=== PATIENT | male | born 2000 | race Caucasian/White ===

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

== ENCOUNTER 2022-01-22 00:50 | Outpatient (RCR) | payer OTHER, SELFPAY ==
[2022-01-22 07:54] LABS: FREE T4 0.73 ng/dL (0.78-1.34); TSH 1.47 uIU/mL (0.52-4.13)
[2022-01-22 17:26] LABS: T3, Total 118 ng/dL (97-169)
[2022-01-28 12:25] LABS: Testosterone, Free 17.1 ng/dL (5.36-21.2); Testosterone, Total 388 ng/dL (240-950)
== END 2022-02-07 23:59 | disposition home or self-care (01) ==
LOC: INF 00:50
PROVIDERS: PCP Pediatrics; Visit Provider Internal Medicine Endocrinology, Diabetes & Metabolism
DX: E03.9 Hypothyroidism, unspecified (principal); E29.1 Testicular hypofunction
CPT/HCPCS: 36415; 84402; 84403; 84439; 84443; 84480

== ENCOUNTER 2022-05-10 08:22 | Outpatient (RCR) | payer OTHER, SELFPAY ==
--- OUTSIDE RECORDS SUMMARY | 2022-05-10 08:27 | XMS_ITS | Encounter Summary ---
:2000 Author Organization [facility] Address [address] [place] [address] Care Team Providers Name Role Phone Sully Baldwin RIDE MECHANIC Unavailable Bernard Newman MD Primary Care Provider Shellie Garza RN Unavailable Unavailable Reason for Visit Reason Onset Date Comments Pre-visit Orders 03/14/2021 Encounter Details Date Type Department Care Team Description 03/14/2021 Orders Only [facility] Shellie Garza R N AML ([facility] [address] [place] [address] leukemia) in Hematology & Oncology [place], [place] [address] remission ([facility]) - Main [place] (Primary Dx) [address] [place] [address] Social History Tobacco Use Types Packs/Day Years Used Date Never Smoker Smokeless Tobacco: Never Used Sex Assigned at Date Recorded Not on file COVID-19 Exposure Response Date Recorded In the last month, have you been in contact with someone Yes 03/13/2021 11:46 EDT who was confirmed or suspected to have Coronavirus / COVID-19? documented as of this encounter Functional Status Functional Status Response Date of Assessment Because of a physical, mental, or emotional condition, No 01/14/2017 does this person have difficulty doing errands alone such as visiting a doctor's office or shopping? Cognitive Status Response Date of Assessment Because of a physical, mental, or emotional condition, Yes 01/14/2017 does this person have serious difficulty concentrating, remembering, or making decisions? 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
--- OUTSIDE RECORDS SUMMARY | 2022-05-10 08:27 | XMS_ITS | Encounter Summary ---
:2000 Author Organization [facility] Address [address] [place] [address] Care Team Providers Name Role Phone Sully Baldwin INTERNATIONAL TRADE SPECIALIST Unavailable Bernard Newman MD Primary Care Provider [phone] Shellie Garza RN Unavailable Unavailable Encounter Details Date Type Department Care Team Description 02/06/2021 Lab Requisition [facility] Outr Resulting Lab, Pathology & Laboratory Provider [facility] [address] [place], [place] [id number] Social History Tobacco Use Types Packs/Day Years Used Date Never Smoker Smokeless Tobacco: Never Used Sex Assigned at Date Recorded Not on file documented as of this encounter Functional Status [...] Office Visit Cardiology Bg Kelsey MD 111 [facility] Level 1 [place], [place] [address] (Wo rk) documented as of this encounter Procedures Procedure Name Priority Date/Time Associated Diagnosis Comme nts COVID-19 TEST [facility] Today 02/06/2021 9:01 EDT LAB PCR COVID-19 TESTING Routine 02/06/2021 9:01 EDT Resu lts for this procedure are i n the results section. documented in this encounter Results COVID-19 TEST [facility] PCR (02/06/2021 9:01 EDT) Specimen Swab - Entire nasopharynx (body structur e) Performing Organization Address City/[facility] Phon e Number [facility] [address] [place] [address] SERVICES COVID-19 TESTING (02/06/2021 9:01 EDT) COVID-19 rt-PCR Negative Negative [facility] Result Comment: CENTER LABORATORY This test has not been FDA c leared or approved. This test has been authorized by FDA under an EUA for use by authorized laboratories. This test has been authorized only for detection of nucleic acid fro SERVICES m 2019-nCoV, not for any oth er viruses or pathogens. This test is only authorized for the duration of the declaration that circumstances exist justifying the authorization of emergency use of in vitro d iagnostic tests for detectio n and/or diagnosis of 2019-nCoV under section 564(b)(1) of Act, 21 U.S.C ?? 360bbb-3(b) (1), unless the authorization is terminated or revoked sooner. Negative results do not prec lude 2019-nCoV infection and should not be used as the sole basis for treatment or other patient management decisions. Negative results must be combined with clinical observa tions, patient history, and epidemiological informatio n. Performed on the FunPuntosher Fusion instrument Performing Lab [place] [facility] Lab [facility] SERVICES Specimen Swab Performing Organization Address City/[facility] Code Phon e Number [facility] [address] [place] [address] SERVICES documented in this encounter Visit Diagnoses Not on filedocumented in this encounter Care Teams Adolescent Specialist Relationship Specialty Start Date End Date Bernard Newman MD PCP - General 10/21/[address] [place] [address] Sully Baldwin NP Nurse Practitioner 09/05/10 [address] [place] [address] Shellie Garza, RN Registered Nurse 03/13/21 [address] [place] [address] documented as of this encounter
--- OUTSIDE RECORDS SUMMARY | 2022-05-10 08:27 | XMS_ITS | Encounter Summary ---
:2000 Author Organization [facility] Address [address] [place] [address] Care Team Providers Name Role Phone Sully Baldwin SUPERVISOR PAIRING AND INSPECTING Unavailable Bernard Newman MD Primary Care Provider [phone] Shellie Garza RN Unavailable Unavailable Reason for Referral Cardiology (Routine/Next Available) - New Request Specialty Diagnoses / Procedures Referred By Contact Refer red To Contact Diagnoses Cardiomyopathy, unspecified type ([facility]) ([facility]) Bg Kelsey MD [facility] Procedures TRANSTHORACIC ECHO (TTE) COMPLETE [place] ECHO HEART XTHORACIC,COMPLETE W DOPPLER [address] [phone] Referral ID Status Reason Start Date Expiration Date Visits V isits Requested Authorized [id number] New Request 12/05/2021 1 1 Reason for Visit Reason Comments Cardiomyopathy 6 month follow up, Chemother apy induced cardiomyopathy Encounter Details Date Type Department Care Team Description 12/05/2021 Office Visit [facility] Medical [place] Bg Kelsey, Jyoti rdiomyopathy, Cardiology - Yuli PAINTING unspecified type [address] [place] ([facility] ([facility]) So [facility] (Primary Dx) [id number] [place] [address], [address] [address] (Wo rk) Social History Tobacco Use Types Packs/Day Years Used Date Never Smoker Smokeless Tobacco: Never Used Alcohol Use Standard Drinks/Week Comments Yes 0 (1 standard drink = 0.6 oz pure alcoho l) socially Alcohol Habits Answer Date Recorded How often do you have a drink containing alcohol? Not asked How many drinks containing alcohol do you have on a typical Not asked day when you are drinking? How often do you have six or more drinks on one occasion? No t asked Comment: socially 06/06/2021 Sex Assigned at Date Recorded Not on file documented as of this encounter Last Filed Vital Signs Vital Sign Reading Time Taken Comments Blood Pressure 106/64 12/05/2021 1004 EST Pulse 68 12/05/2021 1004 EST Temperature - - Respiratory Rate - - Oxygen Saturation 99% 12/05/2021 1004 EST Inhaled Oxygen Concentration - - Weight 87.9 kg (193 lb 12.8 oz) 12/05/2021 1004 EST Height - - Body Mass Index 25.57 12/05/2021 0951 EST documented in this encounter Functional Status Functional Status Response Date of Assessment Because of a physical, mental, or emotional condition, No 01/14/2017 does this person have difficulty doing errands alone such as visiting a doctor's office or shopping? Cognitive Status Response Date of Assessment Because of a physical, mental, or emotional condition, No 05/16/2021 does this person have serious difficulty concentrating, remembering, or making decisions? documented as of this encounter Progress Notes Bg Kelsey MD - 12/05/2021 1020 EST Problem list 1. 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 Patient treated with COG protocol AAML 0531 which included randomization to therapy with him gemtuzumab. B. Total anthracycline dose administered 492 mg/m?? (daunorubicin and mitoxantrone). COG guidelines recommend annual echocardiograms. C. 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 male with a history of AML and anthracycline exposure. At this point time Jaswinder is cardiac function remains in the normal range. His low normal values may reflect an athletic heart under resting conditions. At this point time continued observation with periodic echocardi ograms is reasonable. I have made arrangements to see him in 1 years time with an echocardiogram. I have asked him to contact me if he has increased shortness of breath or palpitations. There are no diagnoses linked to this encounter. No follow-ups on file. Bg Kelsey MD Subjective Jaswinder Ross is a 21 y.o. male with a history of acute lymphocytic leukemia with anthracycline exposure. Overall has been doing remarkably well. 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 He denies syncope or presyncope. He denies palpitations or chest discomfort. He does not feel limited in his physical activities. ROS See subjective for pertinent positives and negatives Problem List and History were reviewed in the EMR Outpatient Medications Marked as Taking for the 12/05/21 encounter (Office Visit) with Bg Kelsey MD: ??? buPROPion (WELLBUTRIN XL) 150 mg XL tablet, Take 150 mg by mouth. ??? ibuprofen (MOTRIN) 200 mg tablet, Take 200 mg by mouth every 6 hours. ??? Multivitamins with Minerals tablet tablet, Take 1 Tablet by mouth daily. ??? testosterone (ANDROGEL) 20.25 mg/1.25 gram (1.62 %) transdermal gel pump, Objective BP 106/64 (BP Cuff Location: Left arm, BP Patient Position: Sitting, BP Cuff Sizes: Adult, large) Pulse 68 Wt 87.9 kg (193 lb 12.8 oz) SpO2 99% BMI 25.57 kg/m?? Physical Exam Not performed Diagnostics: Echocardiogram was performed today demonstrate left ventricular ejection fraction of approximately 55%. RV function was normal. Global longitudinal strain was low normal at -17%. Diastolicfunction was normal. I spent a total of 25 minutes on the date of this encounter meeting with the patient and reviewing documentation/coordinating care as described in the above note. documented in this encounter Plan of Treatment Upcoming Encounters Date Type Specialty Care Team Description 12/18/2022 Ancillary Procedure Cardiology 12/18/2022 Office Visit Cardiology Bg Kelsey MD 111 [facility], [facility], Level [address] [place], [place] [address] (Wo rk) documented as of this encounter Visit Diagnoses Diagnosis Cardiomyopathy, unspecified type (HCC-CM S) (HCC) - Primary documented in this encounter Discontinued Medications Medication Sig Discontinue Reason Start Date End Date methylPREDNISolone follow package Therapy completed 06/06/2021 (MEDROL, TEA,) 4 mg tablet directions sertraline (ZOLOFT) 20 Take 50 mg by Therapy completed 12/05/2021 mg/mL concentrated mouth daily. solutionIndications: anxiety with depression cyclobenzaprine (FLEXERIL) Take 1 Tablet by Therapy completed 06/0612/05/2021 5 mg tablet mouth 3 times daily as needed for Muscle Spasms. documented as of this encounter Orders Echocardiography Count Last Ordered Date First Ordered Date TRANSTHORACIC ECHO (TTE) COMPLETE 1 12/05/2021 documented in this encounter Care Teams Asset Protection Assistant Relationship Specialty Start Date End Date Bernard Newman MD PCP - General 10/21/[address] [place] [address] Sully Baldwin NP Nurse Practitioner 09/05/[address] [place] [phone] Shellie Garza, JUAQUIN Registered Nurse 03/13/[address] [place] [address] documented as of this encounter
--- OUTSIDE RECORDS SUMMARY | 2022-05-10 08:27 | XMS_ITS | Encounter Summary ---
:2002 Author Organization [facility] Address [address] [place] [address] Care Team Providers Name Role Phone Sully Baldwin RAILCAR FOREMAN Unavailable Bernard Newman MD Primary Care Provider [phone] Shellie Garza RN Unavailable Unavailable Reason for Visit Cardiology (Routine) - Authorized Specialty Diagnoses / Procedures Referred By Contact Refer red To Contact Diagnoses Chemotherapy induced cardiomyopathy (HCC-CMS) ([facility]) Bg Kelsey MD Procedures TRANSTHORACIC ECHO (TTE) COMPLETE [place] ECHO HEART XTHORACIC,COMPLETE W DOPPLER 111 [facility] 1 [place] [address] Referral ID Status Reason Start Date Expiration Date Visits V isits Requested Authorized [id number] Authorized 05/16/2021 1 1 Encounter Details Date Type Department Care Team Description 12/05/2021 Ancillary Procedure [facility] Ch emotherapy induced Cardiology - Yuli cardiomyopathy (HCC-CMS) [address] ([facility]) [place] [address] Social History Tobacco Use Types Packs/Day Years [...] Sign Reading Time Taken Comments Blood Pressure 136/61 12/05/2021 0951 EST Pulse - - Temperature - - Respiratory Rate - - Oxygen Saturation - - Inhaled Oxygen Concentration - - Weight 90.7 kg (200 lb) 12/05/2021 0951 EST Height 185.4 cm (6' 1) 12/05/2021 0951 EST Body Mass Index 26.39 12/05/2021 0951 EST documented in this encounter [...] Office Visit Cardiology Bg Kelsey MD 111 [facility], Level [address] [place], [place] [address] (Wo rk) documented as of this encounter Procedures Procedure Name Priority Date/Time Associated Diagnosis Comme [facility] TRANSTHORACIC ECHO Routine 12/05/2021 9:46 Chemotherapy induce d Results for this (TTE) COMPLETE EST cardiomyopathy procedure a re in ([facility]) ([facility]) the results section. documented in this encounter Results TRANSTHORACIC ECHO (TTE) COMPLETE W/DOPPLER W/CF NO CONTRAST (12/05/2021 9:46 EST) Pathologist Sig nature LA Atrial Length A2C 5.0 cm [facility] LA Atrial Area A4C 15.7 cm2 [facility] LA ID/bsa, A-P 1.6 cm/m2 [facility] LV ID, ED, PLAX 5.7 3.5 - 6.0 cm [facility] LVIDD BY MMODE 5.7 cm [facility] LV ID, ES, PLAX 4.2 2.1 - 4.0 cm [facility] LA ID, A-P, ES 3.4 cm [facility] LV PW thickness, ED, PLAX 1.0 0.6 - 1.1 cm [facility] Aortic root ID 2.6 cm [facility] LV ejection fraction, 1-p A4C 50 % [facility] O LVOT mean gradient, S 4 mmHg [facility] AV LVOT peak gradient 8 mmHg [facility] LV e', lateral 0.17 m/s [facility] Mitral deceleration time 141 ms [facility] LV IVRT, DP 65 msec [facility] LVOT area 3.1 cm2 [facility] LVOT peak velocity, S 1.4 m/s [facility] LVOT VTI, S 30.1 cm [facility] Stroke volume (SV), LVOT DP 95 ml [facility] Mitral peak gradient, D 4 mmHg [facility] LVOT mean velocity, S 1.0 m/s [facility] Mitral E-wave peak velocity 1.0 m/s [facility] Mitral A-wave peak velocity 0.4 m/s [facility] LV Systolic Volume Index 36.0 mL/m2 [facility] LV Diastolic Volume Index 76.0 mL/m2 [facility] LA Atrial Length A4C 5.2 cm [facility] LVOT ID, S 2.0 cm [facility] EF 52 % [facility] LA volume, ES, BP 39.0 ml [facility] LA volume/bsa, ES, A4C 17.0 ml/m2 [facility] LA volumes, ES, A4C 36.0 ml [facility] LA volume/bsa, ES, BP 18.0 ml/m2 [facility] LV Systolic Volume 78 mL [facility] LV Diastolic Volume 163 mL [facility] Stroke index (SV/bsa) LVOT DP 44.0 ml/m2 [facility] O Interventricular Septum to 1 [facility] Posterior Wall Thickness Ratio IVS thickness, ED, PLAX 0.9 cm [facility] LV e', medial 0.12 m/s [facility] LV e', average 0.15 m/s [facility] Pulmonic valve mean velocity, S 1 cm/s [facility] Ascending aorta ID, a-p 2.6 cm [facility] LA Atrial Area A2C 15.7 cm2 [facility] LA/aortic root ratio 1.31 [facility] LV end diastolic volume 1-p A2C 159 ml [facility] LV ejection fraction, 1-p A2C 54 % [facility] O LV E/e', lateral 6.0 [facility] LV E/e', medial 0.1 [facility] LV E/e', average 3 [facility] LV end-diastolic volume, 1-p 164 ml [facility] A4C Specimen Narrative [facility] - 12/05/2021 9:56 EST ?Left??Ventricle: Left ventricular systolic function was low normal with an ejection fraction of 50-55%. The jaime mated left ventricular ejection fraction by biplane Dave's method was 52 %. Global longitudinal strain was at the lower limits of ??normal (-17 .0%). ?Right??Ventricle: Right ventricular systolic function was normal. Performing Organization Address City/State/ZIP Code Phon e Number [facility] documented in this encounter Visit Diagnoses Diagnosis Chemotherapy induced cardiomyopathy (HCC -CMS) (HCC) Secondary cardiomyopathy, unspecified documented in this encounter Care Teams Alley Worker Relationship Specialty Start Date End Date Bernard Newman MD PCP - General 10/21/[address] [place] [address] [place] [address] Sully Baldwin NP Nurse Practitioner 09/05/[address] [place] [phone] Shellie Garza, JUAQUIN Registered Nurse 03/13/21 [address] [place] [address] documented as of this encounter
--- OUTSIDE RECORDS SUMMARY | 2022-05-10 08:27 | XMS_ITS | Encounter Summary ---
:2000 Author Organization [facility] Address [address] [place] [address] Care Team Providers Name Role Phone Sully Baldwin MOLDING PROCESS TECHNICIAN Unavailable Bernard Newman MD Primary Care Provider [phone] Shellie Garza RN Unavailable Unavailable Reason for Visit Reason Comments Back Pain Pt arrives ambulatory to [facility] with complaints of lower back pain, hx of back pain. 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 Pt reports pain worse with sitting. Denies loss of urin e or bowels, reports pressure to R thigh. 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 Encounter Details Date Type Department Care Team Description 06/06/[address] [facility] Eduardo Gonzalez, Randall kirit right-sided low Emergency Department back pain with - [facility] [address] [facility] right-sided sciatica [address] [facility] (Primary Dx) [place] [address] [address], [place] [address] (Wo rk) Social History Tobacco Use Types [...] month, have you been in contact with No / Unsure 06/06/2021 17:48 EDT someone who was confirmed or suspected to have Coronavirus / COVID-19? documented as of this encounter Last Filed Vital Signs Vital Sign Reading Time Taken Comments Blood Pressure 153/85 06/06/20212011 EDT Pulse 85 06/06/20212011 EDT Temperature 37 ??C (98.6 ??F) 06/06/2021 1749 EDT Respiratory Rate 18 06/06/20212011 EDT Oxygen Saturation 98% 06/06/20212011 EDT Inhaled Oxygen Concentration - - Weight 90.7 kg (200 lb) 06/06/2021 174 EDT Height 185.4 cm (6' 1) 06/06/2021 1749 EDT Body Mass Index 26.39 06/06/2021 1749 EDT documented in this encounter Functional Status Functional [...] making decisions? documented as of this encounter Discharge Instructions Eduardo Peres MD - 06/06/2021 As we discussed the best way to get better fastest is gentle range of motion exercises and heat. Tryto take the flexaril at bedtime only and continue to use heat, ibuprofen, and tylenol. AttachmentsThe following attachments cannot be sent through Care Everywhere.Low Back Pain: General Info (Sami)documented in this encounter Medications at Time of Discharge Medication Sig Dispensed Refills Start Date End Date buPROPion (WELLBUTRIN XL) Take 150 mg by 0 2020 150 mg XL tablet mouth. ibuprofen (MOTRIN) 200 mg Take 200 mg by 0 tablet mouth every 6 hours. Multivitamins with Minerals Take 1 Tablet by 0 tablet tablet mouth daily. testosterone (ANDROGEL) 0 03/02/2021 20.25 mg/1.25 gram (1.62 %) transdermal gel pump cyclobenzaprine (FLEXERIL) Take 1 Tablet by 15 Tablet 0 12/05/2021 5 mg tablet mouth 3 times daily as needed for Muscle Spasms. methylPREDNISolone (MEDROL, follow package 1 Pack 0 05/1112/05/2021 TEA,) 4 mg tablet directions sertraline (ZOLOFT) 20 Take 50 mg by 0 12/05/2021 mg/mL concentrated mouth daily. solutionIndications: anxiety with depression documented as of this encounter Ordered Prescriptions Prescription Sig Dispensed Refills Start Date End Date methylPREDNISolone (MEDROL, follow package 1 Pack 0 05/1112/05/2021 TEA,) 4 mg tablet directions cyclobenzaprine (FLEXERIL) Take 1 Tablet by 15 Tablet 0 12/05/2021 5 mg tablet mouth 3 times daily as needed for Muscle Spasms. documented in this encounter Discharge Disposition Disposition Code Departure Means Destination Home or Self Intermediate documented in this encounter ED Notes Estela Astudillo RN - 06/06/20212012 EDT Patient discharged home alert, oriented x 4. NAD noted. Discharge instructions and prescriptions reviewed with patient with patient verbalizing understanding of the same. Eduardo Colin MD - 06/06/2021 191 EDT This patient received an evaluation and medical screening exam for emergent medical conditions at the [facility] on 06/06/2021 This note was created and authored by Dr. Jaz Dominguez working under the supervision of Eduardo Gonzalez MD. This documentation is also recorded by Vik Molina acting as Scribe under the direction and presence of Eduardo Gonzalez MD and Jaz Dominguez MD. Eduardo Gonzalez and Jaz Dominguez MD: We personally performed the services recorded by the scribein our presence. We confirm the scribe's documentation has been reviewed by us to accurately and completely record our work, treatment, procedures, and medical decision making. ED Attending???s Supervisory Statement: I, Eduardo Gonzalez MD, performed a history and exam of this patient and discussed the case with the resident. I have reviewed and edited this note, and the documentation is consistent with my findings,assessment and plan. I fully participated in the medical decision making. The patient is a 21 y.o. male who presents with back pain. On my evaluation of the patient the patient notes his pain is localized to his right side, but he denies any associated urinary symptoms or pain radiating to his groin. The patient has repordily been applying heat and stretching but his pain continues to worsen. Reviewed the patient's Lumbar spine x-ray results with the patient and his mother. There 5 type lumbar vertebra. Small ribs are identified at the L1 level. The vertebral body heights and disc spaces are maintained. Alignment is maintained. No blastic or lytic lesions identified. No acute findings in the visualized soft tissues are normal. The patient was receptive to being discharged home. Chief Complaint: Chief Complaint Patient presents with ??? Back Pain Pt arrives ambulatory to triage with complaints of lower back pain, hx of back pain. 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 Pt reports pain worse with sitting. Denies loss of urine or bowels, reports pressure to R thigh. 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 History of Present Illness: [facility] Jaswinder Ross is a 21 y.o. 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 Patient reports that he is always had back pain however he recently fell on Friday on his right tailbone. Since then the pain has been constant and he describes it as both pressure, sharp, and stabbing. Patient has tried [id number] pain medications, going to the chiropractor, and heat pads at that much relief. Patient is having difficulty ambulating. 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 Patient heard a pop this morning and experienced excruciating pain and needed assistance getting into the car. Upon coming to the emergency department he heard a another pop and felt some relief withthat. Associated numbness to his right mid quad. Denies fever, shortness of breath, chest pain, nausea, vomiting, diarrhea, saddle anesthesia, urinary or bowel retention or incontinence. Patient reports that he feels like his right leg is little bit weaker however he does not note that it is due to pain. Patient vapes, drinks alcohol and smokes marijuana occasionally. History was provided by: patient, medical record review Review of Systems: ROS A 10-point review of systems was performed. The patient answered negative to all questions with the exceptions of those explicitly detailed as positives in the HPI. Pertinent negatives are also explicitly stated. Other pertinent history in the medical record includes but is not limited to: PMH PSH Past Medical History: Diagnosis Date ??? AML (acute myeloblastic leukemia) ([facility]) 05/13/2008 Treated per [facility] AAML 0531. WBC 49,000, WINDOW FRAMER negative, testicles negative. 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 Completed therapy 10/21/2008. ??? Dry skin dermatitis 11/2010 ??? 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 Other complication of labor and delivery, antepartum condition or complication gestational diabetes Past Surgical History: Procedure Laterality Date ??? CENTRAL VENOUS CATHETER 05/2008 Double lumen broviac catheter removed 12/2008 ??? AL CREATE EARDRUM OPENING,GEN ANESTH Social History Family History Social History Tobacco Use ??? Smoking status: Never Smoker ??? Smokeless tobacco: Never Used Substance Use Topics ??? Alcohol use: Yes Comment: socially Family History Problem Relation Age of Onset ??? *Other(comment) Paternal Grandmother ??? *Other(comment) Maternal Grandmother ??? Cancer Maternal Grandmother Lung Cancer ??? *Other(comment) Father MRSA Medications Allergies No current facility-administered medications for this encounter. Current Outpatient Medications Medication ??? buPROPion (WELLBUTRIN XL) 150 mg XL tablet ??? cyclobenzaprine (FLEXERIL) 5 mg tablet ??? ibuprofen (MOTRIN) 200 mg tablet ??? methylPREDNISolone (MEDROL, TEA,) 4 mg tablet ??? Multivitamins with Minerals tablet tablet ??? sertraline (ZOLOFT) 20 mg/mL concentrated solution ??? testosterone (ANDROGEL) 20.25 mg/1.25 gram (1.62 %) transdermal gel pump Allergies Allergen Reactions ??? Ambisome [Amphotericin B Liposome] hypotension ??? Voriconazole Rash Physical Exam: Nursing notes and vital signs were reviewed Vital Signs Temp: 37 ??C (98.6 ??F) Temp src: Temporal Pulse: 85 Resp: 18 SpO2: 98 % BP: (!) 153/85 BP Device: BP Machine BP Patient Position: Standing BP Cuff Location: Right arm O2 Device: None (Room air) Physical Exam Constitutional: Well appearing in mild distress. Appears stated age. Head: Atraumatic, normocephalic Eyes: Pupils equal and reactive to light, no scleral icterus Mouth: Moist oral mucosa without apparent lesions Neck: Full ROM Cardiovascular: Regular rate and rhythm. Extremities warm and well perfused, no peripheral edema. Respiratory: Normal respiratory effort. No wheezes or crackles. Clear to auscultation bilaterally. Abdomen: Soft, non-tender to palpation Skin: No overt rashes on exposed skin Musculoskeletal: No obvious bruising or deformities. No tenderness along midline spine. Tender on right lateral lumbar region to palpation. Gait normal. Minimal flexion and extension secondary to pain. Neuro: Strength and sensation globally intact. Psych: No agitation or overt thought disorder Data Interpretation: Imaging obtained was reviewed and independently interpreted by myself along with a radiologist. Please see radiology report for further details: XR LUMBAR SPINE 2-3 VIEWS Final Result FINDINGS / IMPRESSION: AP and lateral radiographs of the lumbar spine. There 5 type lumbar vertebra. Small ribs are identified at the L1 level. The vertebral body heights and disc spaces are maintained. Alignment is maintained. No blastic or lytic lesions identified. No acute findings in the visualized soft tissues are normal Laboratory results independently reviewed, significant for: Labs Reviewed - No data to display Procedures Procedures Medical Decision Making and ED Course Summary A medical screening exam was performed. Jaswinder Ross is a 21 y.o. 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 The differential diagnosis for this patient includes but is not limited to: Muscle sprain, vertebral fracture, disc injury, muscle spasm. History and physical performed. Patient given Toradol for pain. Lumbar x-ray demonstrated that vertebral body heights and disc spaces were maintained as well as alignment. No lesionsand no acute soft tissue injuries visualized. 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 Patient agreeable to plan, given strict return precautions and discharged home. Clinical Impression Final diagnoses: Acute right-sided low back pain with right-sided sciatica Disposition Disposition decisions were made weighing risks and benefits of hospitalization vs. outpatient treatment, the risk for further decompensation, and the patient???s wishes. Discharged. The patient was stable, improved, or requested discharge. Prior to discharge my usual and customary return precautions were reviewed with the patient and/or family. This included follow-up instructions and reasons to return to the Emergency Department if condition worsens, does not improveas expected, or other new concerns arise. Upon departure from the Emergency Department, the patient's pain was in no distress and in no apparent discomfort on a zero to ten scale. Condition at departure from the Emergency Department: Good Some of this note was transcribed with [employer] dictating software. While it was proofread, it may still contain unnoticed grammatical or word errors due to incorrect transcribing. achel Kiser RN - 06/06/2021 1852 EDT Resident MD at bedside evaluating patient. documented in this encounter Plan of Treatment Upcoming Encounters Date Type Specialty Care Team Description 12/18/2022 Ancillary Procedure Cardiology 12/18/2022 Office Visit Cardiology Bg Kelsey MD [address] [place] [address], [place], [address] [place], [place] [address] (Wo rk) documented as of this encounter Procedures Procedure Name Priority Date/Time Associated Diagnosis Comme nts XR LUMBAR SPINE 2-3 STAT 06/06/2021 19:22 Resu lts for this VIEWS EDT procedure are i n the results section. documented in this encounter Results XR LUMBAR SPINE 2-3 VIEWS (06/06/2021 19:22 EDT) Anatomical Region Laterality Modality Spine Computed Radiography Specimen Impressions [facility] RADIOLOGY [facility] - 06/06/2021 19:47 EDT FINDINGS / IMPRESSION: AP and lateral radiographs of the lumbar spine. There 5 type lumbar vertebra. Small ribs are identified at the L1 level. The vertebral body heights and disc spaces are maintained. Alignment is maintaine d. No blastic or lytic lesions identifie d. No acute findings in the visualized soft tissues are normal Narrative [facility] - 06/06/2021 19:47 EDT EXAM/TECHNIQUE: XR LUMBAR SPINE 2-3 VIEWS ??06/06/2021 7: 20 PM HISTORY: ?? Lower right lateral back pain S/P trauma history of multiple bone marrow biopsies in region and intrathecal chemo COMPARISON: CT abdomen pelvis June 01, 2008 Procedure Note Vamshi Haider MD - 06/06/2021 EXAM/TECHNIQUE: XR LUMBAR SPINE 2-3 VIEWS 06/06/2021 7:20 PM HISTORY: Lower right lateral back pain S/P trauma history of multiple bone marrow biopsies in region and intrathecal chemo COMPARISON: CT abdomen pelvis June 01, 2008 IMPRESSION FINDINGS / IMPRESSION: AP and lateral radiographs of the lumbar spine. There 5 type lumbar vertebra. Small ribs are identified at the L1 level. The vertebral body heights and disc spaces are maintained. Alignment is maintained. No blastic or lytic lesions identified. No acute findings in the visualized soft tissues are normal Performing Organization Address City/State/ZIP Code Phon e Number [facility] documented in this encounter Visit Diagnoses Diagnosis Acute right-sided low back pain with rig ht-sided sciatica - Primary documented in this encounter Administered Medications Inactive Administered Medications - up to 3 most recent administrations Medication Order MAR Action Action Date Dose Rate Site ketOROLAC (TORADOL) injection 30 mg Given 06/06/2021 19:26 EDT 30 mg 30 mg, intramuscular, NOW X1, 1 dose, On Fri06/06/21 at 1915, STAT documented in this encounter Active and Recently Administered Medications Times are shown in EDT. Scheduled Medication Order 06/04/2021 06/05/2021 06/06/2021 ketOROLAC (TORADOL) injection 30 mg (COMPLETED) 1925 (Given - Provider: Estela Astudillo, JUAQUIN) 30 mg, intramuscular, NOW X1, 1 dose, On Fri06/06/21 at 1915, ST [facility] documented in this encounter Orders Medications Ordered That Might Not Have Count Last Ord ered Date First Ordered Date Been Administered ketOROLAC (TORADOL) injection 30 mg 1 06/06/2021 documented in this encounter Care Teams Bagging Machine Operator Relationship Specialty Start Date End Date Bernard Newman MD PCP - General 10/21/13 [place] [address] Sully Baldwin MOLDING PROCESS TECHNICIAN Nurse Practitioner 09/05/10 [address] [place] [address] Shellie Garza, JUAQUIN Registered Nurse 03/13/21 [address] [place] [address] documented as of this encounter
--- OUTSIDE RECORDS SUMMARY | 2022-05-10 08:27 | XMS_ITS | Encounter Summary ---
:2000 Author Organization [facility] Address [address] [place] [address] Care Team Providers Name Role Phone Sully Baldwin RESPITE CARE PROVIDER Unavailable Bernard Newman MD Primary Care Provider [phone] Shellie Garza RN Unavailable Unavailable Encounter Details Date Type Department Care Team Description 11/12/2021 Lab Requisition [facility] Outr Resulting Lab, Pathology & Laboratory Provider [facility] [address] [place], [place] [id number] Social History Tobacco Use Types Packs/Day Years [...] Office Visit Cardiology Bg Kelsey MD [address] [facility], [facility], [address] [place], [place] [address] (Wo rk) documented as of this encounter Procedures Procedure Name Priority Date/Time Associated Diagnosis Comme nts COVID-19 TEST [facility] Today 11/12/2021 9:53 EST LAB PCR COVID-19 TESTING Routine 11/12/2021 9:53 EST Resu lts for this procedure are i n the results section. documented in this encounter Results COVID-19 TEST [facility] PCR (11/12/2021 9:53 EST) Specimen Swab Performing Organization Address [facility] Code Phon e Number [facility] [address] [place] [address] SERVICES COVID-19 TESTING (11/12/2021 9:53 EST) COVID-19 rt-PCR Negative Negative [facility] Result Comment: [facility] This test has not been FDA [...] and epidemiological informatio n. Performed on the [employer] Fusion instrument Performing Lab [place] [facility] Lab [facility] SERVICES Specimen Swab Performing Organization Address City/[facility]/ZIP Code Phon e Number [facility] [address] [place] [address] SERVICES documented in this encounter Visit Diagnoses Not on filedocumented in this encounter Care Teams Rn Home Care Relationship Specialty Start Date End Date Bernard Newman MD PCP - General 10/21/[address] [place] [address] [place] [address] Sully Baldwin RESPITE CARE PROVIDER Nurse Practitioner 09/05/10 [address] [place] [address] Shellie Garza, RN Registered Nurse 03/13/21 [address] [place] [address] documented as of this encounter
--- OUTSIDE RECORDS SUMMARY | 2022-05-10 08:27 | XMS_ITS | Encounter Summary ---
:2000 Author Organization [facility] Address [address] [place] [address] Care Team Providers Name Role Phone Sully Baldwin CONSULTING PROJECT DIRECTOR Unavailable Bernard Newman MD Primary Care Provider [phone] Shellie Garza RN Unavailable Unavailable Reason for Visit Reason Onset Date Comments Coordination Of Care 12/17/2021 Encounter Details Date Type Department Care Team Description 12/17/2021 Telephone [facility] Bg Kelsey, Co ordination Of Care Cardiology - [employer] [employer] [address] [facility], [address] [place] [address] (Wo rk) Social History Tobacco Use [...] making decisions? documented as of this encounter Miscellaneous Notes Telephone Encounter - Chika Diaz RN - 12/18/2021 1202 EST Images from the original note were not included. Called Joan (EC/mom) and reviewed Dr. Moseley's note below. Mom just wanted provider to be updated and will call if any changes in symptoms or health regards to Jaswinder. No barriers to learning were identified. Bg Kelsey MD Howland, Laura, RN Please thank Geronimo's mother for the information. ??At this point time left ventricular ejection fraction is at the lower limits of normal. ??Therefore, I would recommend continued yearly evaluation of his cardiac function. ??if there is any change in his symptoms or health please let us know. ??I look forward to seeing him next year when we will be performing a follow-up echocardiogram. elephone Encounter - Adelia Woodruff - 12/17/2021 1502 EST Mom calling, didn't want to embarrass the patient during the appointment but feels Dr. Kelsey should be updated with the following information as he is determining the patient may just have an athletic heart and feels and this might change his mind. Patient was asked if he exercises and lifts weights and he told the doctor that he does and that he runs. Mom advising this is inaccurate and that he does not do any of those things, nor does he exercise. Please call back. documented in this encounter Plan of Treatment Upcoming Encounters Date Type Specialty Care Team Description 12/18/2022 Ancillary Procedure Cardiology 12/18/2022 Office Visit Cardiology Bg Kelsey MD [address] [facility], [facility], [address] [place] [phone] (Wo rk) documented as of this encounter Visit Diagnoses Not on filedocumented in this encounter Care Teams Marketing Research Intern Relationship Specialty Start Date End Date Bernard Newman MD PCP - General 10/21/[address] [place] [address] [place] [address] Sully Baldwin CONSULTING PROJECT DIRECTOR Nurse Practitioner 09/05/10 [address] [place] [address] Shellie Garza, JUAQUIN Registered Nurse 03/13/21 [address] [place] [address] documented as of this encounter
--- OUTSIDE RECORDS SUMMARY | 2022-05-10 08:27 | XMS_ITS | Encounter Summary ---
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 ECHO on 03/13/21 scottie ws change in function with mild LV decreased function. Comments Patient is aslo receiving testosterone f or hypogonadism. 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[facility]) [address] [place] [address] [place] [address] [phone] Social History Tobacco Use Types Packs/Day Years [...] Sign Reading Time Taken Comments Blood Pressure 112/64 03/13/2021 1158 EDT Pulse 72 03/13/2021 1158 EDT Temperature 37.4 ??C (99.3 ??F) 03/13/2021 1158 EDT Respiratory Rate 12 03/13/2021 1158 EDT Oxygen Saturation 98% 03/13/2021 1158 EDT Inhaled Oxygen Concentration - - Weight 93 kg (205 lb 0.4 oz) 03/13/2021 1158 EDT Height 184.5 cm (6' 0.64) 03/13/2021 1158 EDT Body Mass Index 27.32 03/13/2021 1158 EDT documented in this encounter Functional Status [...] documented as of this encounter Progress Notes Dudley Rene MD - 03/13/2021 1300 EDT Pediatric Hem/Onc Survivorship Follow up Visit No chief complaint on file. HISTORIAN: Patient, old records. Primary Care per Bernard Newman Pediatric Oncology Summary/HISTORY OF PRESENT ILLNESS: Jaswinder is an 20 y.o. 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 He was enrolled on [facility] protocol AAML 0531 and was randomized to the experimental arm containing gemtuzumab. His therapy included 492 mg/m2 of anthracyclines (doxorubicin equivalent). He tolerated therapy well with the expected complications of myelosuppression. He completed therapy in nd remains in his first remission. INTERVAL HISTORY: Since his last being seen by Pedi Oncology in February of 2019 Geronimo has generally done well. He is a senior in high school in a hybrid model with regular classes (some remote due to pandemic) and also in person technical classes. He plans on attending a 9 month program for [employer] next year. 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 He has a good energy and activity level with a healthy appetite. His anxiety and OCD symptoms are well controlled with Wellbutrin. He is here for follow up for AML, 12+ years off therapy. Specifically denies ex errcise intolerance or SOB with activity. Past Medical History: Diagnosis Date ??? AML (acute myeloblastic leukemia) ([facility]) 05/13/2008 Treated per [facility] AAML 0531. WBC 49,000, SENIOR CONSULTANT negative, testicles negative. 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 Completed therapy 10/21/2008. ??? Dry skin dermatitis 11/2010 ??? 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 Other complication of labor and delivery, antepartum condition or complication gestational diabetes Current Outpatient Medications Medication ??? buPROPion (WELLBUTRIN XL) 150 mg XL tablet ??? sertraline (ZOLOFT) 20 mg/mL concentrated solution ??? testosterone (ANDROGEL) 20.25 mg/1.25 gram (1.62 %) transdermal gel pump No current facility-administered medications for this visit. Allergies Allergen Reactions ??? Ambisome [Amphotericin B Liposome] hypotension ??? Voriconazole Rash Family history of first degree relatives was reviewed and documented in [facility]. No other significant medical problems were noted in first degree relatives. SOCIAL HISTORY: See EPIC checklist and HPI. Still lives with his parents in [place], [place]. He is in the 12th grade. ROS: System Negative Positive Comments Constitutional X Eyes X ENT X Cardiovascular X Pulmonary X Gastrointestinal X Genitourinary X Musculoskeletal X Skin X Neurological X Psychiatric X long-standing OCD behaviors. Endocrine X Kallman syndrome being treated at [facility] Hematologic/Lymph X Allergic/Immunologic X Pain X Objective: Physical Exam: BP 112/64 (BP Cuff Location: Right arm, BP Patient Position: Sitting, BP Cuff Sizes: Adult, large) Pulse 72 Temp 37.4 ??C (99.3 ??F) (Tympanic) Resp 12 Ht 184.5 cm (72.64) Wt 93 kg (205 lb 0.4 oz) SpO2 98% BMI 27.32 kg/m?? General: Well developed, well nourished, NAD. Talkative and cooperative with exam. Eyes: PERRLA, EOMI, sclera anicteric. Ears: Tympanic membranes clear, non-bulging. Nose: Mucosa and turbinates pink, septum midline. Mouth: Lips pink, good dentition. Throat: Oral mucosa pink and moist. No ulcerations, exudates. Neck: No thyromegaly. Chest: Old well healed scar from previous central line removal. Resp: Clear to auscultation, no crackles, wheezes. CV: Regular S1, S2, no murmur. Peripheral perfusion normal. No edema. Abdomen: Soft non tender, + BS, No HSM Male : nl male jered V Lymph: No cervical, supraclavicular, axillary lymphadenopathy. Skin: No rashes, lesions, ulcers. Neurologic: Cranial nerves 2-12 intact. Deep tendon reflexes 2+ bilaterally. Cerebellar good finger to nose. Strength 5/5 upper & lower extremities. Musculo: Gait coordinated and smooth. No misalignment, defects, deformities. Gomez forward bend testnegative. LABORATORY DATA: Results for orders placed or performed in visit on 03/13/21 COMPREHENSIVE METABOLIC PANEL (CMP) Result Value Ref Range GFR, Calculated, External Glucose, Serum, External 91 Albumin, External 3.8 Total Alkaline Phosphatase, External 89 ALT, External 27 AST, External 23 BUN, External 16 Calculated Calcium, External Calcium, External 8.6 Chloride, External 108 CO2, External 28.6 Creatinine, External 0.9 Fasting?, External Potassium, External 4.1 Sodium, External 144 Total Protein, External 6.8 Bilirubin, Total, External 0.4 COMPLETE BLOOD COUNT AND DIFFERENTIAL Result Value Ref Range WBC, External 6.96 RBC, External 4.74 Hemoglobin, External 14.3 HCT, External 42 MCV, External 88.6 MCH, External 30.2 MCHC, External 34 PLT, External 194 RDW-CV, External 13.2 Neutrophils, External 53 Lymphocytes, External 32.5 Monocytes, External 9.9 Eosinophils, External 3.3 Basophils, External 0.6 ABS Neutrophils, External 6,430 ABS Lymphs, External ABS Monocytes, External ABS Eosinophils, External ABS Basophils, External IMAGING STUDIES REVIEWED: Transthoracic ECHO today: Summary: - History of acute myeloblastic leukemia, including adriamycin therapy. - No structural abnormality seen. - Mildly decreased left ventricular systolic function - reduced from ?prior study. ?Normal LV diastolic profile. Normal left ventricular size and wall ?thickness. - Qualitatively normal right ventricular size and systolic function. ?Trivial tricuspid regurgitation with normal estimated RV systolic ?pressure. - No significant valvar regurgitation or stenosis. - No intracardiac masses and/or lines visualized. Recommendations: ??Suggested adult cardiology evaluation. IMPRESSION: Jaswinder is an 20 y.o. young man with a history of AML s/p treatment on [id number] protocolwith intensive chemotherapy including gemtuzumab, in CR1. He is currently 12 years after completion of therapy. PLAN: AML Remains in first complete remission. No signs or symptoms suggestive of disease recurrence. Treated per [id number]. Completed Off therapy since 10/21/2008 Therapy consisted of: Cytarabine IT, cytarabine (low dose IV), cytarabine (high dose IV), daunorubicin (300 mg/m2), mitoxantrone (48 mg/m2) total anthracycline dose = 492 mg/m2), asparaginase, etoposide and gemtuzumab. Obsessive compulsive behavior Better controlled on welbutrin, with ongoing counselling. Osteochondroma of right tibia Seen by Dr Claros 12/2010. 2 cm mass right tibial osteochondroma diagnosed by Dr Claros with no treatment necessary. Not causing significant pain. Therapy-related potential for late Effects Potential late effects of therapy include, but are not limited to the following and were discussed at the visit today. Risk of cardiac toxicity: Patients treated with anthracycline antibiotics have been shown to be at higher risk for cardiomyopathies. At risk for cardiac toxicity related to exposure to daunorubicin and mitoxantrone (total dose 492 mg/m2) during prior therapy. A detailed history of exertional tolerance is required on an annual bases. Reviewed importance of maintaining a healthy weight, healthy diet and exercise. Per [facility] guidelines, based on dose of anthracycline and age at time of administration, anechocardiogram is recommended yearly.Today's ECHO shows change from prior stdy. Have put in referralto Dr Moseley in Adult Cardiology, and spoke with his mother about this ([facility] his permission). Bone Health: Reviewed importance of calcium, vitamin D and exercise in maintaining bone health. Jaswinder continues to report consuming 3-4 servings of mild products daily. Neurocognitive effects: At risks for neurocognitive effects and with learning issues in school. Hasdifficulties with math and language (particularly sentence structure). Neurocognitive testing complete spring [address] school providing for accommodations (additional time for testing,decreased assignments, additional assistance with math and language). Liver, kidney toxicity: At thi point low risk for liver and kidney toxicity secondary to high dose chemotherapy. CMP today WNL. Secondary malignancy: There is the small risk for secondary leukemias or myelodysplasia secondary to etoposide exposure. CBCD today WNL. Obtain yearly for 10 years off therapy. Also discussed care with sun exposure and risk of sun- related skin malignancy. Fertility: Discussed possible effect of chemotherapy on fertility. This is not always predictable by blood hormone levels. Also discussed that sexuality/function does not necessarily correlate with fertility changes. It is not clear to me how the Kallman syndrome affects this. Transitioning: Geronimo knows the name of his disease - we discussed current thinking re etiology, hereditability (little), recommendations for long-term survivorship followup. DISPOSITION: Return to clinic in 2 years for history, physical examination, transitioned cardiac followup to the adult service. Pt seen and examined in person. Discussed plan with pt's family, staff, and nursing staff. Thanks, Ar Rene MD Pedi Hem/Onc beeper [phone] documented in this encounter Plan of Treatment Upcoming Encounters Date Type Specialty Care Team Description 12/18/2022 Ancillary Procedure Cardiology 12/18/2022 Office Visit Cardiology Bg Kelsey MD [address] [facility], [facility], [address] [place], [place] [address] (Wo rk) Scheduled Referrals Name Type Priority Associated Diagnoses Order S chedule AMB CONS/FOLLOW UP Outpatient Referral Routine AML with Ex pected: CARDIOLOGY t(8;21)(q22;q22); 03/14/2021 [id number] (Approximate), ([facility]) Expires: History of 03/14/2022 chemotherapy documented as of this encounter Procedures Procedure Name Priority Date/Time Associated Comments Diagnosis COMPLETE BLOOD COUNT Routine 03/12/2021 6:50 Resu lts for this AND DIFFERENTIAL EDT procedure a re in the results section. COMPREHENSIVE Routine 03/12/2021 6:50 Results for this METABOLIC PANEL (CMP) EDT proced ure are in the results section. documented in this encounter Results COMPLETE BLOOD COUNT AND DIFFERENTIAL (03/12/2021 6:50 EDT) Pathologist Sig nature WBC, External 6.96 [facility] RBC, External 4.74 [facility] Hemoglobin, External 14.3 [facility] HCT, External 42 [facility] MCV, External 88.6 [facility] MCH, External 30.2 [facility] MCHC, External 34 [facility] PLT, External 194 [facility] RDW-CV, External 13.2 [facility] Neutrophils, External 53 [facility] Lymphocytes, External 32.5 [facility] Monocytes, External 9.9 [facility] Eosinophils, External 3.3 [facility] Basophils, External 0.6 [facility] ABS Neutrophils, 6,430 [facility] ABS Lymphs, External [facility] ABS Monocytes, [facility] ABS Eosinophils, [facility] ABS Basophils, [facility] Specimen Blood - Venous blood (substance) Performing Organization Address City/[facility] Phon e Number [facility] COMPREHENSIVE METABOLIC PANEL (CMP) (03/12/2021 6:50 EDT) Pathologist Sig nature GFR, Calculated, [facility] Glucose, Serum, 91 [facility] Albumin, External 3.8 [facility] Total Alkaline 89 [facility] Phosphatase, [facility] AB ALT, External 27 [facility] AST, External 23 [facility] BUN, External 16 [facility] Calculated Calcium, [facility] Calcium, External 8.6 [facility] Chloride, External 108 [facility] CO2, External 28.6 [facility] Creatinine, External 0.9 [facility] Fasting?, External [facility] Potassium, External 4.1 [facility] Sodium, External 144 [facility] Total Protein, External 6.8 [facility] Bilirubin, Total, 0.4 [facility] Specimen Blood - Venous blood (substance) Performing Organization Address City/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); [id number] ([facility]) ([facility]) - Primary Acute myeloid leukemia, without mention of having achieved remission History of chemotherapy Personal history of antineoplastic chemo therapy 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 ([facility]) ([facility]) Acute myeloid leukemia in remission 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 documented as of this encounter Historical Medications This list may reflect changes made after this encounter. Medication Sig Dispensed Refills Start Date End Date testosterone (ANDROGEL) 0 03/02/2021 20.25 mg/1.25 gram (1.62 %) transdermal gel pump buPROPion (WELLBUTRIN XL) Take 150 mg by 0 2020 150 mg XL tablet mouth. added in this encounter Care Teams Hand Heel Seat Fitter Relationship Specialty Start Date End Date Bernard Newman MD PCP - General 10/21/[address] [place] [address] [place] [address] Sully Baldwin NP Nurse Practitioner 09/05/10 [address] [place] [address] Shellie Garza, RN Registered Nurse 03/13/21 [address] [place] [address] documented as of this encounter
--- OUTSIDE RECORDS SUMMARY | 2022-05-10 08:27 | XMS_ITS | Encounter Summary ---
:2000 Author Organization [facility] Address [address] [place] [address] Care Team Providers Name Role Phone Sully Baldwin CONNIE CLEANER Unavailable Bernard Newman MD Primary Care Provider Shellie Garza RN Unavailable Unavailable Reason for Visit Reason Comments Cardiac Testing Encounter Details Date Type Department Care Team Description 03/13/2021 Nurse Only [facility] Nurse, Cardiology AML (acu te myeloid leukemia) in remission ([facility]) (Primary Dx); [facility] Pediatric Pedi History o f chemotherapy; Cardiology - Main History of antineoplastic chemotherapy [place] [address] [place] [id number] Social History Tobacco Use Types Packs/Day Years [...] Time Taken Comments Blood Pressure 112/64 03/13/2021 1155 EDT Pulse 72 03/13/2021 1155 EDT Temperature 37.4 ??C (99.3 ??F) 03/13/2021 1155 EDT Respiratory Rate 12 03/13/2021 1155 EDT Oxygen Saturation 98% 03/13/2021 1155 EDT Inhaled Oxygen Concentration - - Weight 93 kg (205 lb 0.4 oz) 03/13/2021 1155 EDT Height 184.5 cm (6' 0.64) 03/13/2021 1155 EDT Body Mass Index 27.32 03/13/2021 1155 EDT documented in this encounter Functional Status [...] documented as of this encounter Progress Notes Francesca Tan, RN - 03/13/2021 1130 EDT Diana here for an ekg & echo due to history of AML & chemotherapy. Ekg done & echo being done now. Seeing Dr. Rene in f/u after. documented in this encounter Plan of Treatment Upcoming Encounters Date Type Specialty Care Team Description 12/18/2022 Ancillary Procedure Cardiology 12/18/2022 Office Visit Cardiology Bg Kelsey MD [address] [facility], [facility], [facility] [address] [place], [place] [address] (Wo rk) documented as of this encounter Procedures Procedure Name Priority Date/Time Associated Diagnosis Comme nts ECG REPORT - 03/13/2021 14:31 SCANNED EDT EKG 12-LEAD Routine 03/13/2021 11:53 AML (acute myeloid Resul ts for this EDT leukemia) in remission proce dure are in ([facility]) the results History of section. antineoplastic chemotherapy documented in this encounter Results EKG 12-LEAD (03/13/2021 11:53 EDT) Specimen Narrative [facility] EKG - 03/13/2021 14:2 5 EDT ? [facility] ? Test Date: ?2021-03-13 Pat Name: ? DIANA ROSS ? Department: ?? [id number] ? Room: ? Gender: ? Male ? Egg Pasteurizer: ?? [id number] : ?2000 ? Requested By: LAUREN Woo Order Number: [id number] ? Reading MD: ?? MABEL CARLOS MD ? Measurements Intervals ?[place] ? Rate: ? 73 ? P: ?73 CA: ? 166 ?QRS: ?76 QRSD: ? 81 ? T: ?42 QT: ? 355 ? QTc: ?392 ? Interpretive Statements SINUS RHYTHM Normal [place] Nonspecific inferior limb lead T wave ch anges Compared to ECG 04/25/2020 12:11:15 Nonspecific inferior lead T wave changes no present (lead II, AVF) I reviewed the tracing and have either a greed or edited the findings in this report. Electronically Signed On 14:25:28 EDT by MABEL CARLOS MD. Procedure Note aMbel Carlos MD - 03/13/2021 [facility] Test Date: 2021-03-13 Pat Name: DIANA ROSS Department: [address] Room: Gender: Male Egg Pasteurizer: [id number] : 2000 Requested By: LAUREN Woo Order Number: [id number] Reading MD: Hanh CARLOS MD Measurements Intervals [place] Rate: 73 P: 73 CA: 166 QRS: 76 QRSD: 81 T: 42 QT: 355 QTc: 392 Interpretive Statements SINUS RHYTHM Normal [place] Nonspecific inferior limb lead T wave ch anges Compared to ECG 04/25/2020 12:11:15 Nonspecific inferior lead T wave changes no present (lead II, AVF) I reviewed the tracing and have either a greed or edited the findings in this report. Electronically Signed On 14:25:28 EDT by MABEL CARLOS MD. Performing Organization Address City/State/ZIP Code Phon e Number [facility] EKG documented in this encounter Visit Diagnoses Diagnosis AML (acute myeloid leukemia) [facility] ([facility]) (HCC) - Primary Acute myeloid leukemia in remission History of chemotherapy Personal history of antineoplastic chemo therapy History of antineoplastic chemotherapy Personal history of antineoplastic chemo therapy documented in this encounter Orders Procedures Count Last Ordered Date First Ordered Date ECG REPORT - SCANNED 1 03/14/2021 documented in this encounter Care Teams Solar/Ren[employer]able [employer] Sales Relationship Specialty Start Date End Date Bernard Newman MD PCP - General 10/21/13 [place] [address] Sully Baldwin NP Nurse Practitioner 09/05/10 [address] [place] [id number] Shellie Garza, JUAQUIN Registered Nurse 03/13/21 [address] [place] [address] documented as of this encounter
--- OUTSIDE RECORDS SUMMARY | 2022-05-10 08:27 | XMS_ITS | Encounter Summary ---
:2000 Author Organization [facility] Address [address] [place] [address] Care Team Providers Name Role Phone Sully Baldwin MONEY MARKET DEALER Unavailable Bernard Newman MD Primary Care Provider [phone] Shellie Garza RN Unavailable Unavailable Reason for Referral Consult (Routine/Next Available) - Denied Specialty Diagnoses / Procedures Referred By Contact Refer red To Contact Cardiology Diagnoses History of chemotherapy Dudley Rene MD [place], Bg Woo MD [address] [facility], [facility], [address] [address] [place] [address] Phone: Fax: Referral ID Status Reason Start Date Expiration Date Visits V isits Requested Authorized [id number] Denied Specialty 03/14/2021 1 0 Services Required Question Answer Reason for Request: 20 yo with hx of AML and ant hrycycline chemo exposure now with changes in LV function on EC HO Encounter Details Date Type Department Care Team Description 03/14/2021 Orders Only [facility] Brandi Benitez, [facility] senior it specialist chemotherapy (Primary Hematology & [address]) Oncology - [place], [place] [address] [facility] [address] [place] [address] [phone] Social History Tobacco Use Types Packs/Day Years [...] 12/18/2022 Office Visit Cardiology Bg Kelsey MD [address] [place] [address] [address] [place], [place] [address] (Wo rk) Scheduled Referrals Name Type Priority Associated Diagnoses Order S chedule AMB CONS/FOLLOW UP Outpatient Referral Routine History of Or dered: CARDIOLOGY chemotherapy 03/14/2021 documented as of this encounter Visit Diagnoses Diagnosis History of chemotherapy - Primary Personal history of antineoplastic chemo therapy documented in this encounter Care Teams Copy Holder Relationship Specialty Start Date End Date Bernard Newman MD PCP - General 10/21/13 [place] [address] Sully Baldwin NP Nurse Practitioner 09/05/[address] [place] [phone] Shellie Garza, JUAQUIN Registered Nurse 03/13/[address] [place] [id number] documented as of this encounter
--- OUTSIDE RECORDS SUMMARY | 2022-05-10 08:27 | XMS_ITS | Encounter Summary ---
:2000 Author Organization [facility] Address [address] [place] [address] Care Team Providers Name Role Phone Sully Baldwin HOUSING DEVELOPMENT SPECIALIST Unavailable Bernadr Newman MD Primary Care Provider [phone] Shellie Gazra RN Unavailable Unavailable Encounter Details Date Type Department Care Team Description 03/13/2021 Travel Social History Tobacco Use Types Packs/Day Years [...] Office Visit Cardiology Bg Kelsey MD [address] [facility], [address] [place], [place] [address] (Wo rk) documented as of this encounter Visit Diagnoses Not on filedocumented in this encounter Care Teams Retail General Manager Relationship Specialty Start Date End Date Bernard Newman MD PCP - General 10/21/[place] [address] Sully Baldwin NP Nurse Practitioner 09/05/10 [address] [place] [phone] Shellie Garza, JUAQUIN Registered Nurse 03/13/21 [address] [place] [address] documented as of this encounter
--- OUTSIDE RECORDS SUMMARY | 2022-05-10 08:27 | XMS_ITS | Encounter Summary ---
:2002 Author Organization [facility] Address [address] [place] [address] Care Team Providers Name Role Phone Sully Baldwin REFERRAL COORDINATOR Unavailable Bernard Newman MD Primary Care Provider [phone] Shellie Garza RN Unavailable Unavailable Reason for Referral Cardiology (Routine) - Authorized Specialty Diagnoses / Procedures Referred By Contact Refer red To Contact Diagnoses Chemotherapy induced cardiomyopathy (HCC-CMS) ([facility]) Bg Kelsey MD Procedures TRANSTHORACIC ECHO (TTE) COMPLETE MO ECHO HEART XTHORACIC,COMPLETE W DOPPLER [address] [place] [address] 1 [place] [address] Referral ID Status Reason Start Date Expiration Date Visits V isits Requested Authorized [id number] Authorized 05/16/2021 1 1 Reason for Visit Reason Comments New Patient Visit AML with t(8;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); [id number] (HCC-CMS) (HCC) History of chemotherapy Dudley Rene MD Van Buren, Peter C, MD [address] [facility] 111 [facility] [address] [address] [place] [address] Phone: Fax: Referral ID Status Reason Start Expiration Visits Visits Date Date Requested Authorized [id number] Specialty Specialty 03/14/2021 1 1 Report Services Received Required Encounter Details Date Type Department Care Team Description 05/16/2021 Office Visit [facility] Bg Kelsey, emotherapy induced Cardiology - [employer] PAINTING cardiomyopathy [address] ([facility]) (Primary Dx) [address] [place], [place] [address] [address] [facility], [place], [address] [place] [address] (Wo rk) Social History Tobacco Use Types Packs/Day Years Used Date Never Smoker Smokeless Tobacco: Never Used Sex Assigned at Date Recorded Not on file documented as of this encounter Last Filed Vital Signs Vital Sign Reading Time Taken Comments Blood Pressure 108/66 05/16/2021 1532 EDT Pulse 68 05/16/2021 1532 EDT Temperature - - Respiratory Rate - - Oxygen Saturation 96% 05/16/2021 1532 EDT Inhaled Oxygen Concentration - - Weight 90.9 kg (200 lb 6.4 oz) 05/16/2021 1532 EDT Height - - Body Mass Index 26.7 03/13/2021 1158 EDT documented in this encounter [...] encounter Progress Notes Bg Kelsey MD - 05/16/2021 1520 EDT Problem list 1. 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 Patient treated with [facility] protocol AAML 0531 which included randomization to therapy with him gemtuzumab. B. Total anthracycline dose ordered and 92 mg/m?? C. 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 ) Assessment & Plan Jaswinder Ross is a 21 y.o. male with a history of AML and who received high- dose anthracycline aspart of his chemotherapeutic regimen. He is functioning at a very high level and is quite aerobically fit. I suspect that the subtle differences in LV appearance may be due to ambient adrenergic and vagal tone. Global longitudinal strain has been shown to be an early indicator of myocardial dysfunction particularly in the oncology population. The fact that longitudinal strain was normal on both the 2019 and 2020 studies is reassuring. At this point in time I would recommend that we get a follow-up echocardiogram in 6 months time. This will be done using the adult protocol which is better adapted for evaluation of left ventricular function. If endocardial definition is challenging then we can use echo contrast which oftentimes can be very helpful in determining the patient's LV function. I will beseeing the patient in conjunction with the echocardiogram. Patient's I have asked exact to contact our office if he has any recurrence of palpitations. Diagnoses and all orders for this visit: Chemotherapy induced cardiomyopathy (HCC-CMS) - TRANSTHORACIC ECHO (TTE) COMPLETE Other orders - ibuprofen (MOTRIN) 200 mg tablet - Multivitamins with Minerals tablet tablet No follow-ups on file. Bg Kelsey MD Subjective Jaswinder Ross is a 21 y.o. male with a history of AML diagnosed in 2007. Patient underwent the above chemotherapeutic regiment including relatively high- dose anthracycline. As part of routine follow-up in the late effects oncology clinic an echocardiogram was performed the spring which was felt to demonstrate a decrease in left ventricular function when compared to prior echocardiograms. 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 He was active in lacrosse during high school and performed again this without limitation. In the past he has had complaints of palpitations which he describes as a fast heart rhythm which is associated with chest pressure and lasts approximately 30 seconds. He has not had the symptoms for over a year. He denies syncope or presyncope. ROS See subjective for pertinent positives and negatives Past Medical History: Diagnosis Date ??? AML (acute myeloblastic leukemia) ([facility]) 05/13/2008 Treated per [facility] AAML 0531. WBC 49,000, APPRENTICE PAINTER HAND negative, testicles negative. 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 Completed therapy 10/21/2008. ??? Dry skin dermatitis 11/2010 ??? 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 Other complication of labor and delivery, antepartum condition or complication gestational diabetes Past Surgical History: Procedure Laterality Date ??? CENTRAL VENOUS CATHETER 05/2008 Double lumen broviac catheter removed 12/2008 ??? MO CREATE EARDRUM OPENING,GEN ANESTH Social History Tobacco Use ??? Smoking status: Never Smoker ??? Smokeless tobacco: Never Used Substance Use Topics ??? Alcohol use: Not on file Family History Problem Relation Age of Onset ??? *Other(comment) Paternal Grandmother ??? *Other(comment) Maternal Grandmother ??? Cancer Maternal Grandmother Lung Cancer ??? *Other(comment) Father MRSA Allergies Allergen Reactions ??? Ambisome [Amphotericin B Liposome] hypotension ??? Voriconazole Rash Outpatient Medications Marked as Taking for the 05/16/21 encounter (Office Visit) with Bg Kelsey MD: ??? buPROPion (WELLBUTRIN XL) 150 mg XL tablet, Take 150 mg by mouth. ??? ibuprofen (MOTRIN) 200 mg tablet, Take 200 mg by mouth every 6 hours. ??? Multivitamins with Minerals tablet tablet, Take 1 Tablet by mouth daily. ??? testosterone (ANDROGEL) 20.25 mg/1.25 gram (1.62 %) transdermal gel pump, Objective BP 108/66 (BP Cuff Location: Left arm, BP Patient Position: Sitting, BP Cuff Sizes: Adult, large) Pulse 68 Wt 90.9 kg (200 lb 6.4 oz) SpO2 96% BMI 26.70 kg/m?? Physical Exam Well-appearing male in no acute distress. Jugular venous pressures are within normal limits. Lungs are clear to auscultation. Cardiac exam regular rate and rhythm S1-S2 with a soft flow murmur. He has no evidence of pretibial edema with 2+ lower extremity pulses. Diagnostics: I have reviewed the echocardiograms from 2018, 2019 and 2020. In looking at the images there does not appear to be a substantial reduction in LV function over this time. Endocardial definition is limited particularly in the 2020 study. Diastolic function in all 3 studies is robust. Globallongitudinal strain was -20.1% in 2019 and -17.9% in 2020. Both of these values are in the normal range. ECG performed this year demonstrated normal sinus rhythm with normal axis and normal QRS morphology. I spent a total of 45 minutes on the date of this encounter meeting with the patient and reviewing documentation/coordinating care as described in the above note. documented in this encounter Plan of Treatment Upcoming Encounters Date Type Specialty Care Team Description 12/18/2022 Ancillary Procedure Cardiology 12/18/2022 Office Visit Cardiology Bg Kelsey MD [address] [facility], [facility], [address] [place] [address] (Wo rk) documented as of this encounter Results TRANSTHORACIC ECHO (TTE) COMPLETE [...] Diagnosis Chemotherapy induced cardiomyopathy (HCC -CMS) (HCC) - Primary Secondary cardiomyopathy, unspecified Chemotherapy induced cardiomyopathy (HCC -CMS) (HCC) Secondary cardiomyopathy, unspecified documented in this encounter Historical Medications This list may reflect changes made after this encounter. Medication Sig Dispensed Refills Start Date End Date Multivitamins with Minerals Take 1 Tablet by 0 tablet tablet mouth daily. ibuprofen (MOTRIN) 200 mg Take 200 mg by mouth 0 tablet every 6 hours. added in this encounter Care Teams Air Quality Chemist Relationship Specialty Start Date End Date Bernard Newman MD PCP - General 10/21/[address] [place] [address] [place] [address] Sully Baldwin NP Nurse Practitioner 09/05/10 [address] [place] [phone] Shellie Garza, JUAQUIN Registered Nurse 03/13/21 [address] [place] [address] documented as of this encounter
--- OUTSIDE RECORDS SUMMARY | 2022-05-10 08:27 | XMS_ITS | Encounter Summary ---
:2000 Author Organization [facility] Address [address] [place] [address] Care Team Providers Name Role Phone Sully Baldwin STILL CLEANER TUBE Unavailable Bernard Newman MD Primary Care Provider [phone] Shellie Garza RN Unavailable Unavailable Reason for Visit Cardiology (Routine) - Authorized Specialty Diagnoses / Procedures Referred By Contact Refer red To Contact Diagnoses History of chemotherapy 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n ([facility]) ([facility]) Brandi Kam NP Procedures TRANSTHORACIC ECHO (TTE) COMPLETE [address] [place] [address] Referral ID Status Reason Start Date Expiration Date Visits V isits Requested Authorized [id number] Authorized 12/12/2020 1 1 Encounter Details Date Type Department Care Team Description 03/13/2021 Ancillary Procedure [facility] Histor y of chemotherapy; [facility] Pediatric AML (acut e myeloid leukemia) in remission ([facility]) Cardiology - Main [place] [address] [place] [address] Social History Tobacco Use Types Packs/Day Years [...] Office Visit Cardiology Bg Kelsey MD [address] [facility], Level [address] [place], [place] [address] (Wo rk) documented as of this encounter Procedures Procedure Name Priority Date/Time Associated Comments Diagnosis TRANSTHORACIC ECHO Routine 03/13/2021 11:59 History of Resul ts for this (TTE) COMPLETE EDT chemotherapy procedure are in AML (acute myeloid the resul ts leukemia) in section. remission (HCC-CMS) documented in this encounter Results TRANSTHORACIC ECHO (TTE) COMPLETE (03/13/2021 11:59 EDT) Specimen Narrative [facility] - 03/13/2021 14:12 EDT Pediatric Cardiology [address] [place] [address] Date of study: 03/13/2021 Transthoracic Echocardiogram Report M-mode, complete 2D, complete spectral D oppler, and color Doppler *STUDY CONCLUSIONS* Summary: - History of acute myeloblastic leukemia , including adriamycin therapy. - No structural abnormality seen. - Mildly decreased left ventricular syst olic function - reduced from ??prior study. ??Normal LV diastolic profile. Normal l eft ventricular size and wall ??thickness. - Qualitatively normal right ventricular size and systolic function. ??Trivial tricuspid regurgitation with normal estimated RV systolic ??pressure. - No significant valvar regurgitation or stenosis. - No intracardiac masses and/or lines vi sualized. Recommendations: ??Suggested adult cardi ology evaluation. *PATIENT PRESENTATION* Age: ?20yr Height: ? 184.5cm (72.6in ) S/D Pressure: 112 / 64 Weight: ? 93kg (204.6lb ) BSA: ?2.2m^2 Location: ? Echocardiography Laborat or Facility: ? [facility] [place] Estimator: ??Elena Sanders Ordering: ? Brandi Kam Test start time: ??12:00 PM. Test stop time: ??12:45 PM. *PROCEDURE DATA* Procedure information: ??Pertinent image s and digital data are archived for permanent storage and are available for subsequent review. ??Study status: ??Routine. Transthoracic echocar diography. ??M-mode, complete 2D, complete spectral Doppler, and color Dop pler. Transthoracic echocardiography was performed for ventr icular function evaluation. Images were obtained using a [employer] Epiq 1 6 cardiac ultrasound machine. Image quality was satisfactory. Satisfac tory imaging could not be obtained from the subcostal acoustic win bethany(s). ??Blood pressure: 112/64 ?Height percentile: 87.9. ?Weight percentile: 95.4. *INDICATIONS AND HISTORY* Indications: ?? C92.01 AML. ??C92.01 AML . ??AML. ??S/p Chemo. ??S/p chemo. AML. ??C92.01 Acute myeloblastic leukemi a in remission. Critical Results: ?? An urgent result, d ecreased LV systolic function, was reported to Brandi Kam , a [facility] practitioner responsible for the patient , by Augustine Snyder MD , on 03/13/2021 , at 02:10 PM. *CARDIAC ANATOMY* ANATOMIC RELATIONSHIPS Normal atrial situs. Concordant atrioven tricular alignment. Ventricular d-loop. Concordant ventriculoarterial co nnection. Normally related great arteries. VEINS AND ATRIA Atrial septum: ??No evidence for a signi ficant atrial septal defect; subxiphoid imaging not obtained. Left atrium: ??The atrium is normal in s ize. Right atrium: ??The atrium is normal in size. Systemic veins: Inferior vena cava: Not well visualized. Superior vena cava: Not well visualized. Pulmonary veins: ??Not well visualized. A-V CANAL Tricuspid valve: ?? The valve is structu rally normal. ?Transvalvular velocity is within the normal range. The re is no evidence for stenosis. There is trivial regurgitation. Mitral valve: ?? The valve is structural ly normal. ?Transvalvular velocity is within the normal range. The re is no evidence for stenosis. There is no significant regurgitation. VENTRICLES Right ventricle: ??The cavity size is no rmal. Wall thickness is normal. The outflow tract shows no obstruction. Systolic function is satisfactory. ??Based on the velocity of the tricuspid regurgitation jet the estimated right ventricular pressure is 20mm Hg plus the right atrial pressure. Ventricular septum: ?? Thickness is norm al. Septal motion shows normal function. The contour shows a normal con figuration. The septum is intact. Left ventricle: ??The cavity size is nor mal. Wall thickness is normal. The outflow tract shows no obstruction. Systolic function is satisfactory. Wall motion is normal; the re are no regional wall motion abnormalities. The transmitral flow gino tarik is normal. Left ventricular diastolic function parameters are normal for the patient's age. CONOTRUNCUS Aortic valve: ?? The valve is structural ly normal. The valve is trileaflet. ?Transvalvular veloci ty is within the normal range. There is no stenosis. There is no regurg itation. Pulmonary valve: ?The valve is struc turally normal. ?Transvalvular velocity is within the normal range. The re is no significant regurgitation. Coronaries: ??Coronary arteries are not evaluated in the study. GREAT ARTERIES Aorta: ??Unobstructed proximal aorta. De tammi aortic doppler not obtained. Aortic root: The aortic root i s not dilated. Systemic-pulmonary shunts: ??No evidence for a patent ductus arteriosus. PERICARDIUM There is no significant pericardial effu emily. *MEASUREMENT TABLES* Left ventricle ?Valu e ? 04/25/2020 Reference ? Z LV area, ED, PSAX ? 28.70 cm^2 ?26.20 ? ---- PM LV area, ES, PSAX ? 17.00 cm^2 ?11.90 ? ---- PM LV fx area ?41 ?% ? 55 ? ---- change, PSAX PM LV epicardial ? 44.9 0 cm^2 ?42.00 ? ---- area, ED, PSAX PM LV ID, major ?9.6 4 ??cm ?9.49 ? 7.57 - 10.40 ??0.9 axis, ED, A4C LV ID, major ?8.0 7 ??cm ?8.10 ? 6.06 - 8.71 ?? 1.0 axis, ES, A4C LV ID/bsa, major ?4.4 ? ? cm/m^2 ??4.6 ? ---- axis, ED, A4C LV ID/bsa, major ?3.7 ? ? cm/m^2 ??3.9 ? ---- axis, ES, A4C LV apex cone ?10. 80 cm ?10.50 ? ---- length, ED, A4C LV end-diastolic ?231 ? ? ml ?207 ?136 - 239 ? 1.7 volume, A/L LV end-systolic ?? (H) ? 114 ?? ml ?80 ? 56 - 107 ?2.4 volume, A/L LV ejection ? (L) ? 0.50 ?0.61 ? 0.55 - 0.72 ?? -3.1 fraction, A/L LV end-diastolic ?105 ? ? ml/m^2 ??100 ? ---- volume/bsa, A/L LV end-systolic ? 52 ?ml/m^2 ??39 ? ---- volume/bsa, A/L LV ID, ED, MM ? 6.00 ??cm ?5.71 ? 4.62 - 6.24 ?? 1.4 LV ID, ES, MM ? (H) ? 4.41 ? ?cm ?3.84 ? 2.73 - 4.32 ?? 2.2 LV ID/bsa, ED, MM ? 2.7 ?? cm/m^2 ??2.7 ? ---- LV ID/bsa, ES, MM ? 2.0 ?? cm/m^2 ??1.8 ? ---- LV fx shortening, (L) ? 27 ? % ? 33 ? 29 - 43 ? -2.8 MM LV mid-wall fx ?16 ?% ? 19 ? ---- shortening, MM LV PW thickness, ?0.81 ??cm ?0.83 ? 0.74 - 1.28 ?? -1.4 ED, MM IVS/LV PW ratio, ?1.12 ?1.02 ? 0.71 - 1.42 ?? 0.3 ED, MM LV relative wall ?0.27 ?0.29 ? ---- thickness, ED, MM LV wall mass, MM ?204 ? ? g ? 181 ?147 - 354 ? -0.5 LV wall mass/bsa, ? 93 ?g/m^2 ?? 87 ? ---- MM LV mass/height, ? 1.10 ??g/cm ?0.99 ? ---- MM LV ?38.97 g/m^2.7 35.08 ? ---- mass/height^2.7, MM LV e', lateral ?18.6 ??cm/sec ??20 ? 13.37 - 25.48 -0.3 LV E/e', lateral ?5 ? 5 ?2 - 8 ? 0.0 LV a', lateral ?5.77 ??cm/sec ??5.98 ? 2.4 - 9.05 ?0.0 LV e'/a', ? 3. 22 ?3.34 ? 1.15 - 6.37 ?? -0.4 lateral, TDI LV s', lateral ?10.9 ??cm/sec ??12.3 ? 6.24 - 16.31 ??-0.1 LV e', medial ? 11.6 ??cm/sec ??13.7 ? 9.54 - 18.46 ??-1.1 LV E/e', medial ? 8 ? 7 ?4 - 10 ?0.7 LV a', medial ? 6.96 ??cm/sec ??6.42 ? 2.74 - 8.53 ?? 0.9 LV e'/a', medial ?1.67 ?2.13 ? 1.26 - 4.07 ?? -1.4 LV s', medial ? 8.16 ??cm/sec ??8.59 ? 5.91 - 10.33 ??0.0 LV e', average ?15.1 ??cm/sec ??16.85 ? ---- LV E/e', average ?6 ? 5 ?3 - 9 ? 0.3 Ventricular septum ?Value ? 04/25/2020 Reference ? Z IVS thickness, ?0.91 ??cm ?0.85 ? 0.75 - 1.41 ?? -1.0 ED, MM Aortic valve ?Shima ue ? 04/25/2020 Reference ? Z Aortic annulus ?2.06 ??cm ?2.14 ? 1.91 - 2.69 ?? -1.2 diameter, S Aorta ? Value ? 04/25/2020 Reference ? Z Aortic root ID ?2.87 ??cm ?2.74 ? 2.44 - 3.76 ?? -0.7 Aortic root ID, ? 2.46 ??cm ?2.37 ? 2.04 - 3.05 ?? -0.3 STJ, S Mitral valve ?Shima ue ? 04/25/2020 Reference ? Z Mitral E-wave ? 0.94 ??m/sec ?? 0.9 ?0.59 - 1.29 ?? 0.0 peak velocity Mitral A-wave ? 0.52 ??m/sec ?? 0.42 ? 0.21 - 0.68 ?? 0.6 peak velocity Mitral peak ? 4 ? mm Hg ?? 3 ? ---- gradient, D Mitral E/A ratio, ? 1.81 ?2.14 ? 1.13 - 3.53 ?? -0.9 peak Legend: (L) ??and ??(H) ??aimee values outside sp ecified reference range. I have personally reviewed the images an d have reviewed and edited the reported findings. Electronically signed by Augustine Snyder MD 03/13/2021 14:12 Procedure Note Augustine Snyder MD - 03/13/2021 Pediatric Cardiology [address] [place] [address] Date of study: 03/13/2021 Transthoracic Echocardiogram Report M-mode, complete 2D, complete spectral D oppler, and color Doppler *STUDY CONCLUSIONS* Summary: - History of acute myeloblastic leukemia , including adriamycin therapy. - No structural abnormality seen. - Mildly decreased left ventricular syst olic function - reduced from prior study. Normal LV diastolic profile. Normal lef t ventricular size and wall thickness. - Qualitatively normal right ventricular size and systolic function. Trivial tricuspid regurgitation with no rmal estimated RV systolic pressure. - No significant valvar regurgitation or stenosis. - No intracardiac masses and/or lines vi sualized. Recommendations: Suggested adult cardiol ogy evaluation. *PATIENT PRESENTATION* Age: 20yr Height: 184.5cm (72.6in ) S/D Pressure: 112 / 64 Weight: 93kg (204.6lb ) BSA: 2.2m^2 Location: Echocardiography Laboratory Facility: [facility] [place] Box Estimator: Elena Sanders Ordering: Brandi Kam Test start time: 12:00 PM. Test stop time: 12:45 PM. *PROCEDURE DATA* Procedure information: Pertinent images and digital data are archived for permanent storage and are available for subsequent review. Study status: Routine. Transthoracic echocardi ography. M-mode, complete 2D, complete spectral Doppler, and color Dop pler. Transthoracic echocardiography was performed for ventr icular function evaluation. Images were obtained using a [employer] Epiq 1 6 cardiac ultrasound machine. Image quality was satisfactory. Satisfac tory imaging could not be obtained from the subcostal acoustic win bethany(s). Blood pressure: 112/64 Height percentile: 87.9. Weight p ercentile: 95.4. *INDICATIONS AND HISTORY* Indications: C92.01 AML. C92.01 AML. AML . S/p Chemo. S/p chemo. AML. C92.01 Acute myeloblastic leukemia in remission. Critical Results: An urgent result, decr eased LV systolic function, was reported to Brandi Kam , [facility] practitioner responsible for the patient , by Augustine Snyder MD , on 03/13/2021 , at 02:10 PM. *CARDIAC ANATOMY* ANATOMIC RELATIONSHIPS Normal atrial situs. Concordant atrioven tricular alignment. Ventricular d-loop. Concordant ventriculoarterial co nnection. Normally related great arteries. VEINS AND ATRIA Atrial septum: No evidence for a signifi cant atrial septal defect; subxiphoid imaging not obtained. Left atrium: The atrium is normal in siz e. Right atrium: The atrium is normal in si ze. Systemic veins: Inferior vena cava: Not well visualized. Superior vena cava: Not well visualized. Pulmonary veins: Not well visualized. A-V CANAL Tricuspid valve: The valve is structural ly normal. Transvalvular velocity is within the normal range. The re is no evidence for stenosis. There is trivial regurgitation. Mitral valve: The valve is structurally normal. Transvalvular velocity is within the normal range. The re is no evidence for stenosis. There is no significant regurgitation. VENTRICLES Right ventricle: The cavity size is norm al. Wall thickness is normal. The outflow tract shows no obstruction. Systolic function is satisfactory. Based on the velocity of t he tricuspid regurgitation jet the estimated right ventricular pressure is 20mm Hg plus the right atrial pressure. Ventricular septum: Thickness is normal. Septal motion shows normal function. The contour shows a normal con figuration. The septum is intact. Left ventricle: The cavity size is keyona l. Wall thickness is normal. The outflow tract shows no obstruction. Systolic function is satisfactory. Wall motion is normal; the re are no regional wall motion abnormalities. The transmitral flow gino tarik is normal. Left ventricular diastolic function parameters are normal for the patient's age. CONOTRUNCUS Aortic valve: The valve is structurally normal. The valve is trileaflet. Transvalvular velocity is wi thin the normal range. There is no stenosis. There is no regurg itation. Pulmonary valve: The valve is structural ly normal. Transvalvular velocity is within the normal range. The re is no significant regurgitation. Coronaries: Coronary arteries are not ev aluated in the study. GREAT ARTERIES Aorta: Unobstructed proximal aorta. Desc ending aortic doppler not obtained. Aortic root: The aortic root i s not dilated. Systemic-pulmonary shunts: No evidence f or a patent ductus arteriosus. PERICARDIUM There is no significant pericardial effu emily. *MEASUREMENT TABLES* Left ventricle Value 04/25/2020 Referen [facility] LV area, ED, PSAX 28.70 cm^2 26.20 ---- --------- ---- PM LV area, ES, PSAX 17.00 cm^2 11.90 ---- --------- ---- PM LV fx area 41 % 55 ---- change, PSAX PM LV epicardial 44.90 cm^2 42.00 -------- ----- ---- area, ED, PSAX PM LV ID, major 9.64 cm 9.49 7.57 - 10.40 0.9 axis, ED, A4C LV ID, major 8.07 cm 8.10 6.06 - 8.71 1 .0 axis, ES, A4C LV ID/bsa, major 4.4 cm/m^2 4.6 ------- ------ ---- axis, ED, A4C LV ID/bsa, major 3.7 cm/m^2 3.9 ------- ------ ---- axis, ES, A4C LV apex cone 10.80 cm 10.50 -- ---- length, ED, A4C LV end-diastolic 231 ml 207 136 - 239 1 .7 volume, A/L LV end-systolic (H) 114 ml 80 56 - 107 2.4 volume, A/L LV ejection (L) 0.50 0.61 0.55 - 0.72 - 3.1 fraction, A/L LV end-diastolic 105 ml/m^2 100 ------- ------ ---- volume/bsa, A/L LV end-systolic 52 ml/m^2 39 --- ---- volume/bsa, A/L LV ID, ED, MM 6.00 cm 5.71 4.62 - 6.24 1.4 LV ID, ES, MM (H) 4.41 cm 3.84 2.73 - 4 .32 2.2 LV ID/bsa, ED, MM 2.7 cm/m^2 2.7 ------ ------- ---- LV ID/bsa, ES, MM 2.0 cm/m^2 1.8 ------ ------- ---- LV fx shortening, (L) 27 % 33 29 - 43 - 2.8 MM LV mid-wall fx 16 % 19 -- -- shortening, MM LV PW thickness, 0.81 cm 0.83 0.74 - 1. 28 -1.4 ED, MM IVS/LV PW ratio, 1.12 1.02 0.71 - 1.42 0.3 ED, MM LV relative wall 0.27 0.29 - ---- thickness, ED, MM LV wall mass, MM 204 g 181 147 - 354 -0 .5 LV wall mass/bsa, 93 g/m^2 87 --------- ---- ---- MM LV mass/height, 1.10 g/cm 0.99 -------- ----- ---- MM LV 38.97 g/m^2.7 35.08 -- -- mass/height^2.7, MM LV e', lateral 18.6 cm/sec 20 13.37 - 2 5.48 -0.3 LV E/e', lateral 5 5 2 - 8 0.0 LV a', lateral 5.77 cm/sec 5.98 2.4 - 9 .05 0.0 LV e'/a', 3.22 3.34 1.15 - 6.37 -0.4 lateral, TDI LV s', lateral 10.9 cm/sec 12.3 6.24 - 16.31 -0.1 LV e', medial 11.6 cm/sec 13.7 9.54 - 1 8.46 -1.1 LV E/e', medial 8 7 4 - 10 0.7 LV a', medial 6.96 cm/sec 6.42 2.74 - 8 .53 0.9 LV e'/a', medial 1.67 2.13 1.26 - 4.07 -1.4 LV s', medial 8.16 cm/sec 8.59 5.91 - 1 0.33 0.0 LV e', average 15.1 cm/sec 16.85 ------ ------- ---- LV E/e', average 6 5 3 - 9 0.3 Ventricular septum Value 04/25/2020 Ref erence Z IVS thickness, 0.91 cm 0.85 0.75 - 1.41 -1.0 ED, MM Aortic valve Value 04/25/2020 Reference Z Aortic annulus 2.06 cm 2.14 1.91 - 2.69 -1.2 diameter, S Aorta Value 04/25/2020 Reference Z Aortic root ID 2.87 cm 2.74 2.44 - 3.76 -0.7 Aortic root ID, 2.46 cm 2.37 2.04 - 3.0 5 -0.3 STJ, S Mitral valve Value 04/25/2020 Reference Z Mitral E-wave 0.94 m/sec 0.9 0.59 - 1.2 9 0.0 peak velocity Mitral A-wave 0.52 m/sec 0.42 0.21 - 0. 68 0.6 peak velocity Mitral peak 4 mm Hg 3 --- - gradient, D Mitral E/A ratio, 1.81 2.14 1.13 - 3.53 -0.9 peak Legend: (L) and (H) aimee values outside specifie d reference range. I have personally reviewed the images an d have reviewed and edited the reported findings. Electronically signed by Augustine Snyder MD 03/13/2021 14:12 Performing Organization Address City/State/ZIP Code Phon e Number [facility] documented in this encounter Visit Diagnoses Diagnosis History of chemotherapy Personal history of antineoplastic chemo therapy AML (acute myeloid leukemia) in [facility] ([facility]) (HCC) Acute myeloid leukemia in remission documented in this encounter Care Teams Spline Rolling Machine Job Setter Relationship Specialty Start Date End Date Bernard Newman MD PCP - General 10/21/[address] [place] [address] Sully Baldwin NP Nurse Practitioner 09/05/10 [address] [place] [address] Shellie Garza, RN Registered Nurse 03/13/21 [address] [place] [address] documented as of this encounter
--- OUTSIDE RECORDS SUMMARY | 2022-05-10 08:27 | XMS_ITS | Encounter Summary ---
:2002 Author Organization [facility] Address [address] [place] [address] Care Team Providers Name Role Phone Sully Baldwin POTASH FLAKER Unavailable Bernard Newman MD Primary Care Provider [phone] Shellie Garza RN Unavailable Unavailable Encounter Details Date Type Department Care Team Description 06/06/2021 Travel Social History Tobacco Use Types Packs/Day [...] Office Visit Cardiology Bg Kelsey MD 111 [facility], [facility], Level [address] [place] [address] (Wo rk) documented as of this encounter Visit Diagnoses Not on filedocumented in this encounter Care Teams Ordnance Engineering Technician Relationship Specialty Start Date End Date Bernard Newman MD PCP - General 10/21/[address] [place] [address] [place] [address] Sully Baldwin POTASH FLAKER Nurse Practitioner 09/05/[address] [place] [phone] Shellie Garza, RN Registered Nurse 03/13/[address] [place] [id number] documented as of this encounter
--- OUTSIDE RECORDS SUMMARY | 2022-05-10 08:27 | XMS_ITS | Clinical Summary ---
:2002 Author Organization [facility] Address [address] [place] [address] Care Team Providers Name Role Phone Sully Baldwin SENSITIZED PAPER TESTER Unavailable Bernard Newman MD Primary Care Provider [phone] Shellie Garza RN Unavailable Unavailable Allergies Active Allergy Reactions Severity Noted Date Comments Amphotericin B Liposome Medium 09/27/2010 hypo tension Voriconazole Rash 09/27/2008 Medications Medication Sig Dispensed Refills Start Date End Date Status buPROPion (WELLBUTRIN Take 150 mg by 0 02/28/2021 Active XL) 150 mg XL tablet mouth. testosterone (ANDROGEL) 0 03/02/2021 Active 20.25 mg/1.25 gram (1.62 %) transdermal gel pump ibuprofen (MOTRIN) 200 Take 200 mg by 0 Active mg tablet mouth every 6 hours. Multivitamins with Take 1 Tablet by 0 Active Minerals tablet tablet mouth daily. 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 Treated per [facility] IT cytarabine X 4 IV cytarabine 46 gm/m2 daunorubicin 300 mg/m2 etoposide 1,750 mg/m2 gemtuxumab 6 mg/m2 mitoxantrone 48 mg/m2 L-asparaginase 12,000 units/m2 Completed therapy 10/21/2008. Health education/counseling 03/04/2012 Osteochondroma of tibia 03/04/2012 History of chemotherapy 08/06/2011 Overview: AML diagnosed 05/13/2008. Treated per [facility] with total doses as follows: IT cytarabine X 4 IV cytarabine 46 gm/m2 daunorubicin 300 mg/m2 etoposide 1,750 mg/m2 gemtuxumab 6 mg/m2 mitoxantrone 48 mg/m2 L-asparaginase 12,000 units/m2 Learning difficulty 08/06/2011 Compulsive behavior 12/07/2010 Dry skin dermatitis 12/07/2010 Resolved Problems Problem Noted Date Resolved Date Obsessive behavior 09/10/2010 10/22/2013 Surgical History Surgery Date Site/Laterality Comments CENTRAL VENOUS CATHETER 05/2008 Double l umen broviac catheter removed 12/2008 [place] CREATE EARDRUM OPENING,GEN ANESTH Medical History Medical History Date Comments Other complication of labor and gestatio nal diabetes delivery, antepartum condition or complication AML (acute myeloblastic leukemia) 05/13/2008 Treate d per [facility]. WBC (HCC-CMS) (HCC) 49,000, HEDDLE MACHINE OPERATOR negative , testicles negative. Chromosome s t(8:21), (q22:q22), 9q del, F LT3 negative. Completed therapy . 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 Dry skin dermatitis 11/2010 Family History Medical History Relation Name Comments *Other(comment) Father MRSA *Other(comment) Maternal Grandmother Cancer Maternal Grandmother Lung Cancer *Other(comment) Paternal Grandmother Relation Name Status Comments Father Maternal Grandmother Paternal Grandmother Alive Social History Tobacco Use Types Packs/Day Years [...] Assigned at Date Recorded Not on file Last Filed Vital Signs Vital Sign Reading Time Taken Comments Blood Pressure 106/64 12/05/2021 1004 EST Pulse 68 12/05/2021 1004 EST Temperature 37 ??C (98.6 ??F) 06/06/2021 1749 EDT Respiratory Rate 18 06/06/20212011 EDT Oxygen Saturation 99% 12/05/2021 1004 EST Inhaled Oxygen Concentration - - Weight 87.9 kg (193 lb 12.8 oz) 12/05/2021 1004 EST Height 185.4 cm (6' 1) 12/05/2021 0951 EST Body Mass Index 25.57 12/05/2021 0951 EST Plan of Treatment Upcoming Encounters Date Type Specialty Care Team Description 12/18/2022 Ancillary Procedure Cardiology 12/18/2022 Office Visit Cardiology Bg Kelsey MD 111 [facility], [facility] [address] [place], [place] [address] (Wo rk) Health Maintenance Due Date Last Done Comments Hepatitis C Screen 2002 Social Determinants Of Health (SDOH) 2002 HPV Vaccines (1 - Male 2-dose series) 2013 Behavioral Health Screen 2014 COVID-19 Vaccine (1) 2014 HIV Screening 2018 Advance Directive 2020 Lipid Profile Screening (Cholesterol) 18 To 21 2020 Preventive Care Visit 2020 Pertussis (Adult) Immunization 2021 Tetanus (Adult) Immunization 2021 Influenza Immunization (Adult) (Season Ended) 2022 Insurance Payer Benefit Plan Subscriber ID Effective Phone Address Typ e / Group Dates [employer]ANS [id number] 2019-Prese [phone] [address] [employer] [address] [place] [address] Ross,Jaswindre P Personal/Family Self 2000 [address] [place] [address] Ross,Jaswinder P Personal/Family Self 2000 [address] [place] [address] Care Teams Traffic Signal Supervisor Maintenance Relationship Specialty Start Date End Date Bernard Newman MD PCP - General 10/21/13 [place] [address] Sully Baldwin NP Nurse Practitioner 09/05/[address] [place] [phone] Shellie Garza, JUAQUIN Registered Nurse 03/13/[address] [place] [id number]
--- OUTSIDE RECORDS SUMMARY | 2022-05-10 08:27 | XMS_ITS | Encounter Summary ---
:[address] [facility] Address [address] [place] [address] Care Team Providers Name Role Phone Sully Baldiwn HOOP RIVETING MACHINE OPERATOR Unavailable Bernard Newman MD Primary Care Provider [phone] Reason for Referral Cardiology (Routine) - Authorized Specialty Diagnoses / Procedures Referred By Contact Refer red To Contact Diagnoses History of chemotherapy 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n ([facility]) ([facility]) Brandi Kam NP Procedures TRANSTHORACIC ECHO (TTE) COMPLETE [address] [place] [address] Referral ID Status Reason Start Date Expiration Date Visits V isits Requested Authorized [id number] Authorized 12/12/2020 1 1 Reason for Visit Reason Onset Date Comments Pre-visit Orders 12/12/2020 Encounter Details Date Type Department Care Team Description 12/12/2020 Orders Only [facility] Storms[facility] R N History of chemotherapy (Primary Dx); Hospital Pediatric [address] [place] [address] 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 ([facility]) Hematology & [place] [address] Oncology - Main [place] [address] [place] [address] Social History Tobacco Use Types Packs/Day Years [...] MD 111 [facility], Level 1 [place], [place] [address] (Wo rk) Scheduled Orders Name Type Priority Associated Diagnoses Order S chedule EKG 12-LEAD ECG Routine History of chemo therapy Ordered: 12/12/2020 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n ([facility]) documented as of this encounter Results TRANSTHORACIC ECHO (TTE) COMPLETE (03/13/2021 11:59 EDT) Specimen Narrative [facility] - 03/13/2021 14:12 EDT Pediatric Cardiology [address] [place] [address] Date of study: 03/13/2021 Transthoracic Echocardiogram Report [...] Location: ? Echocardiography Laborat or Facility: ? [facility] [place] Pattern Maker: ??Elena Sanders Ordering: ? Brandi Kam Test [...] function evaluation. Images were obtained using a [employer] Epiq 1 6 cardiac ultrasound machine. Image [...] was reported to Brandi Kam , a [facility] practitioner responsible for the patient , by [...] GREAT ARTERIES Aorta: ??Unobstructed proximal aorta. De scendano aortic doppler not obtained. Aortic root: The [...] Snyder MD - 03/13/2021 Pediatric Cardiology [address] [place] [address] Date of study: 03/13/2021 Transthoracic Echocardiogram Report [...] ) BSA: 2.2m^2 Location: Echocardiography Laboratory Facility: [facility] Wood Pattern Maker: Elena Sanders Ordering: Brandi Kam Test start [...] function evaluation. Images were obtained using a [employer] Epiq 1 6 cardiac ultrasound machine. Image [...] was reported to Brandi Kam , a [facility] practitioner responsible for the patient , by [...] *MEASUREMENT TABLES* Left ventricle Value 04/25/2020 Referen [facility] LV area, ED, PSAX 28.70 cm^2 [...] Organization Address City/State/ZIP Code Phon e Number [facility] documented in this encounter Visit Diagnoses Diagnosis History of chemotherapy - Primary Personal history of antineoplastic chemo therapy AML (acute myeloid leukemia) in [facility] ([facility]) (HCC) Acute myeloid leukemia in remission History of chemotherapy Personal history of antineoplastic chemo therapy AML (acute myeloid leukemia) in [facility] n (HCC-[facility]) (HCC) Acute myeloid leukemia in remission documented in this encounter Care Teams Bath Mixer Relationship Specialty Start Date End Date Bernard Newman MD PCP - General 10/21/[address] [place] [address] Sully Baldwin NP Nurse Practitioner 09/05/[address] [place] [phone] documented as of this encounter
--- OUTSIDE RECORDS SUMMARY | 2022-05-10 08:27 | XMS_ITS | Encounter Summary ---
:2002 Author Organization [facility] Address [address] [place] [address] Care Team Providers Name Role Phone Sully Baldwin TRAVELING INVENTORY ASSOCIATE Unavailable Bernard Newman MD Primary Care Provider [phone] Shellie Garza RN Unavailable Unavailable Encounter Details Date Type Department Care Team Description 03/12/2021 Lab Requisition [facility] Outr Resulting Lab, Pathology & Laboratory Provider [facility] [address] [place] [address] Social History Tobacco Use Types [...] Office Visit Cardiology Bg Kelsey MD 111 [facility] Level 1 [place], [place] [address] (Wo rk) documented as of this encounter Procedures Procedure Name Priority Date/Time Associated Diagnosis Comme nts COVID-19 TEST [facility] Today 03/12/2021 8:38 EDT LAB PCR COVID-19 TESTING Routine 03/12/2021 8:38 EDT Resu lts for this procedure are i n the results section. documented in this encounter Results COVID-19 TEST [facility] LAB PCR (03/12/2021 8:38 EDT) Specimen Swab - Entire nasopharynx (body structur e) Performing Organization Address [facility] Code Phon e Number [facility] [address] [place] [address] SERVICES COVID-19 TESTING (03/12/2021 8:38 EDT) COVID-19 rt-PCR Negative Negative [facility] Result Comment: [facility] This test [...] tions, patient history, and epidemiological informatio n. Testing was performed using the sylvia SARS-CoV-2 assay ([employer] on the Sylvia 6800 System Performing Lab Sylvia 6800 [facility] Lab [facility] SERVICES Specimen Swab Performing Organization Address City/[facility] Code Phon e Number [facility] [address] [place] [address] SERVICES documented in this encounter Visit Diagnoses Not on filedocumented in this encounter Care Teams Tin Roofer Relationship Specialty Start Date End Date Bernard Newman MD PCP - General 10/21/[address] [place] [address] [place] [address] Sully Baldwin NP Nurse Practitioner 09/05/10 [address] [place] [phone] Shellie Garza, RN Registered Nurse 03/13/21 [address] [place] [address] documented as of this encounter
--- OUTSIDE RECORDS SUMMARY | 2022-05-10 08:27 | XMS_ITS | Encounter Summary ---
:2002 Author Organization [facility] Address [address] [place] [address] Care Team Providers Name Role Phone Sully Baldwin GRAVEL HAULER Unavailable Bernard Newman MD Primary Care Provider [phone] Shellie Garza RN Unavailable Unavailable Encounter Details Date Type Department Care Team Description 12/20/2020 Lab Requisition [facility] Marvin of Pathology & MD Suresh uncertain behavior Laboratory Medicine [address] 111 [facility] [address] [place], [place] [id number] [place] [phone] Social History Tobacco Use Types Packs/Day Years [...] decisions? documented as of this encounter Discharge Disposition Disposition Code Departure Means Destination Home or Self Care documented in this encounter Plan of Treatment Upcoming Encounters Date Type Specialty Care Team Description 12/18/2022 Ancillary Procedure Cardiology 12/18/2022 Office Visit Cardiology Bg Kelsey MD 111 [facility], Level [address] [place], [place] [address] (Wo rk) documented as of this encounter Procedures Procedure Name Priority Date/Time Associated Diagnosis Comme nts SURGICAL PATHOLOGY Today 12/20/2020 15:17 Neoplasm of Resul ts for this EST uncertain behavior procedure are in of skin the results section. documented in this encounter Results SURGICAL PATHOLOGY (12/20/2020 15:17 EST) Final Diagnosis A. SKIN OF BACK, LEFT MEDIAL UPPER, SHAVE BIOPSY: [facility] - Pilar (trichilemmal) cyst. [facility] SERVICES Attestation By the signature [facility] Electronica lly below, the attending CENTER signed by [place], physician certifies LABORATORY Alesha Viveros MD on that they have 1) SERVICES 12/21/2020 at 1537 personally conducted a gross and/or microscopic examination of the described specimen(s), and/or personally interpreted the results of laboratory testing of the described specimen(s), and 2) personally rendered or confirmed the above diagnosis. Clinical History 4 mm whitish yellowish telan giectatic papule; DDx: Neuroma vs basal cell neoplasm vs cyst vs other; clinical diagnosis code: D48.5 [facility] SERVICES Gross Description [facility]. [facility] Received in formalin gi d with proper patient identification (initials P, Z) and left medial upper back is a firm shiny romeo-rider nodular skin lesion, 0.5 x 0.4 x 0.2 cm. The margin is inked. Bisected and entirely submitted in A1. [facility] CHELA MORFIN(ASCP) 12/21/2020 8:13 SER VICES Performing Lab [facility] SERVICES Scanned Images [facility] SERVICES Specimen Tissue - Skin (tissue) specimen (specime n) Performing Organization Address City/State/ZIP Code Phon e Number [facility] [address] [place] [address] SERVICES documented in this encounter Visit Diagnoses Diagnosis Neoplasm of uncertain behavior of skin documented in this encounter Care Teams Photo Mask Processor Relationship Specialty Start Date End Date Bernard Newman MD PCP - General 10/21/13 [address] [place], [place] [phone] Sully Baldwin NP Nurse Practitioner 09/05/10 [address] [place] [phone] Shellie Garza, RN Registered Nurse 03/13/21 [address] [place] [address] documented as of this encounter
--- OUTSIDE RECORDS SUMMARY | 2022-05-10 08:27 | XMS_ITS | Encounter Summary ---
:2002 Author Organization [facility] Address [address] [place] [address] Care Team Providers Name Role Phone Sully Baldwin GAS SINGER Unavailable Bernard Newman MD Primary Care Provider Shellie Garza RN Unavailable Unavailable Reason for Visit Reason Onset Date Comments Discuss Test Results 03/14/2021 Encounter Details Date Type Department Care Team Description 03/14/2021 Telephone [facility] Company[facility]udley hernandez MD Discuss Test Results Hospital Pediatric [address] [place] [address] Hematology & Oncology [facility] [phone] [place] [address] [place] [address] [phone] Social History Tobacco Use Types Packs/Day Years [...] this encounter Miscellaneous Notes Telephone Encounter - Shameka Grewal RN - 03/15/2021 1134 EDT JUAQUIN Myles entered Ferritin result collected from [facility] on 03/11/21 at 0650 into patient's chart in [employer]. elephone Encounter - Dudley Rene MD - 03/14/2021 1022 EDT Left Cortext message with Geronimo, and spoke with is mother (with his permission). His ECHO yesterday is read as showing mild change in LV function from the last one in April of 2020. Have placed referral to Dr Kelsey in adult cardiollgy for recommendations and followup. Also recommended that we check a ferritin, since some heavily treated individuals, who have received multiple RBC transfusions, may have iron overload. His mother voiced understanding of the plan. Dudley Rene MD documented in this encounter Plan of Treatment Upcoming Encounters Date Type Specialty Care Team Description 12/18/2022 Ancillary Procedure Cardiology 12/18/2022 Office Visit Cardiology Bg Kelsey MD 111 [facility], Level 1 [place], [place] [address] (Wo rk) documented as of this encounter Procedures Procedure Name Priority Date/Time Associated Diagnosis Comme nts FERRITIN Routine 03/11/2021 6:50 EDT Results for this procedure are i n the results section . documented in this encounter Results FERRITIN (03/11/2021 6:50 EDT) Pathologist Sig nature Ferritin, External 148 26 - 388 ng/mL [facility] Specimen Blood - Venous blood (substance) Performing Organization Address City/State/ZIP Code Phon e Number [facility] documented in this encounter Visit Diagnoses Not on filedocumented in this encounter Care Teams Supervisor Electronic Coils Relationship Specialty Start Date End Date Bernard Newman MD PCP - General 10/21/13 [address] [place] [address] Sully Baldwin GAS SINGER Nurse Practitioner 09/05/[address] [place] [phone] Shellie Garza, RN Registered Nurse 03/13/21 [address] [place] [address] documented as of this encounter
--- OUTSIDE RECORDS SUMMARY | 2022-05-10 08:28 | XMS_ITS | Encounter Summary ---
:2002 Author Organization [facility] Address [address] [place] [address] Care Team Providers Name Role Phone Sully Baldwin ROLL ON MAN Unavailable Bernard Newman MD Primary Care Provider [phone] Encounter Details Date Type Department Care Team Description 10/05/2014 Orders Only [facility] Children's Sully Baldwin NP AML (acute myeloid Hospital Pediatric [address] [place] [address]) in Hematology & Oncology Avenue remission ([facility]) - [place], [place] (Primary Dx) 111 [facility] [phone] [place], [place] [id number] [phone] Social History Tobacco Use Types Packs/Day Years Used Date Never Smoker Smokeless Tobacco: Never Used Sex Assigned at Date Recorded Not on file documented as of this encounter Plan of Treatment Upcoming Encounters Date Type Specialty Care Team Description 12/18/2022 Ancillary Procedure Cardiology 12/18/2022 Office Visit Cardiology Bg Kelsey MD 111 [facility], Level [address] [place], [place] [address] (Wo rk) documented as of this encounter Results (ABNORMAL) COMPREHENSIVE METABOLIC PANEL (CMP) (10/11/2014 11:21 EST) [facility] Potassium 4.2 3.3 - 4.6 mEq/L [facility] SERVICES Sodium 146 (H) 136 - 145 mEq/L [facility] Chloride 105 96 - 110 mEq/L [facility] CO2 28 24 - 32 mEq/L [facility] Total Alkaline 254 178 - 455 U/L [facility] Phosphatase LABORATORY SERVICES Bilirubin, Total 0.5 <1.0 mg/dl [facility] AST 29 15 - 40 U/L [facility] ALT 26 <56 U/L [facility] Albumin 4.5 3.7 - 5.6 g/dl [facility] Total Protein 6.8 6.3 - 8.6 g/dl [facility] Creatinine 0.55 0.42 - 0.71 [facility] mg/dl LABORATORY SERVICES GFR, Calculated Age <18 ml/min/1.73m2 [facility] BUN 19 (H) 7 - 17 mg/dl [facility] Calcium 9.6 8.8 - 10.6 [facility] mg/dl LABORATORY SERVICES Calculated Calcium 9.5 8.8 - 10.6 [facility] mg/dl LABORATORY SERVICES Glucose, Serum 85 70 - 100 mg/dl [facility] Fasting? Unknown [facility] Specimen Blood specimen (specimen) - Blood Performing Organization Address City/State/ZIP Code Phon e Number [facility] [address] [place] [address] SERVICES HEMAGRAM (10/11/2014 11:21 EST) Pathologist Sig nature WBC 7.44 4.5 - 13.0 K/cmm [facility] RBC 4.85 4.50 - 5.30 M/cmm [facility] Hemoglobin 14.0 13.0 - 16.0 gm/dl [facility] HCT 40.3 37.0 - 49.0 % [facility] MCV 83 78 - 98 fl [facility] MCH 28.8 pg [facility] MCHC 34.8 gm/dl [facility] PLT 190 156 - 312 K/cmm [facility] RDW-CV 13.4 % [facility] Specimen Blood specimen (specimen) - Blood Performing Organization Address City/State/ZIP Code Phon e Number [facility] [address] [place] [address] SERVICES documented in this encounter Visit Diagnoses Diagnosis 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 ([facility]) (HCC) - Primary Acute myeloid leukemia in remission documented in this encounter Care Teams Android Platform Developer Relationship Specialty Start Date End Date Bernard Newman MD PCP - General 10/21/[address] [place] [address] [facility] [address] Sully Baldwin NP Nurse Practitioner 09/05/[address] [place] [phone] documented as of this encounter
--- OUTSIDE RECORDS SUMMARY | 2022-05-10 08:28 | XMS_ITS | Encounter Summary ---
:2002 Author Organization [facility] Address [address] [place] [address] Care Team Providers Name Role Phone Sully Baldwin PRODUCTION SUPERVISOR Unavailable Bernard Newman MD Primary Care Provider [phone] Reason for Visit Reason Comments Follow-up AML off therapy Encounter Details Date Type Department Care Team Description 10/11/2014 Office Visit [facility] AML (acute myeloid leukemia) in [facility] ([facility]) (Primary Dx); Hospital Pediatric [address] [place] [address] [facility]; Hematology & [address] History of chemotherapy; Oncology - [place], [place] Learning d [place] [id number] [place] [address] [place] [address] [phone] Social History Tobacco Use Types Packs/Day Years Used Date Never Smoker Smokeless Tobacco: Never Used Sex Assigned at Date Recorded Not on file documented as of this encounter Last Filed Vital Signs Vital Sign Reading Time Taken Comments Blood Pressure 122/62 10/11/2014 1023 EST Pulse 83 10/11/2014 1023 EST Temperature 36.6 ??C (97.9 ??F) 10/11/2014 1023 EST Respiratory Rate - - Oxygen Saturation - - Inhaled Oxygen Concentration - - Weight 69.3 kg (152 lb 12.5 oz) 10/11/2014 1023 EST Height 170.2 cm (5' 7.01) 10/11/2014 1023 EST Body Mass Index 23.92 10/11/2014 1023 EST documented in this encounter Patient Instructions Patient InstructionsDudley Rene MD - 10/15/2014 16:39 EST Please call your child's Primary Care Physician for general questions or concerns that are unrelatedto their cancer diagnosis. Call Pediatric Hematology/Oncology 24 hours a day at or ext [phone] for the following concerns: Unexplained fevers Unexplained new pain New worrisome lumps or bumps New unintended weight loss Bruising/bleeding (low platelets) Tiredness (anemia) Any other questions or concerns. documented in this encounter Progress Notes Shania Arellano MD - 10/11/2014 1211 EST Pediatric Hem/Onc Followup Visit Reason for visit: Followup of AML, 6 years off therapy HISTORIAN: Patient and his Mom. HISTORY OF PRESENT ILLNESS: Jaswinder Ross is an 14 y.o. 5 m.o. 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 He was enrolled on the COG protocol AAML 0531 and was randomized to the experimental gemtuzumab arm. His therapy included 492 mg/m2 of anthracyclines (doxorubicin equivalent). He tolerated therapy very well with the expected complications of myelosuppression. He completed therapy in 10/2008 and remains in his first remission. He is here today for routine followup 6 years after completing therapy. INTERVAL HISTORY: Since his last visit one year prior (10/2013) Jaswinder continues to do well. He is now in the sixth grade and is working on a non-IEP educational plan that includes group tutoring for a few hours after school. Overall, grades are good, but he continues to struggle in math, more so this year than previously. Mother is working with secondary history teacher, PCP and special ed to get him plugged into the appropriate services and is requesting a letter today from our clinic to help with that. He tested out of his IEP for this year, but she feels he may need those services back, and does not wantto wait until high school (as she has heard it is harder to get services once they are at that level). Geronimo continues to be a very active farideh, playing basketball, lacrosse, soccer and snowboarding thisyear. He really enjoys sports, and is keeping up with his peers athletically. No concerns with stamina. He has had no significant injuries, accidents or hospitalizations. Immunizations are UTD per parent. Denies bruising, bleeding or petechiae. Appetite is good. He continues on his same curve for weight, but has gained some height, improving his BMI from the 95%ile to the 93%ile. His obsessive compulsive behaviors were not noticed during this visit, and he is currently on no meds for these. No new problems reported. Past Medical History Diagnosis Date ??? Other complication of labor and delivery, antepartum condition or complication gestational diabetes ??? 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 WBC 49,000, FOOD CHECKER negative, testicles negative. 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 Completed therapy 10/21/2008. ??? 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 Dry skin dermatitis 11/2010 Past Surgical History Procedure Laterality Date ??? Central venous catheter 05/2008 Double lumen broviac catheter removed 12/2008 ??? Pr create eardrum opening,gen anesth No current outpatient prescriptions on file. No current facility-administered medications for this visit. Allergies Allergen Reactions ??? Ambisome [Amphotericin B Liposome] hypotension ??? Voriconazole Rash FAMILY HISTORY: No change in family history since last visit in October 2013. SOCIAL HISTORY: Social history as noted above. Lives with his parents and brother in [place], [place]. He is in the 6th grade in a standard classroom. REVIEW OF SYSTEMS: General: No fever, night sweats, weight loss or malaise. Very occasional episodes of dizziness, transient, ?related to hydration (Mom describes orthostasis). HEENT: No headaches. No vision or hearing complaints. No mouth sores or throat pain. Respiratory: No cough or shortness of breath. Cardiovascular: No palpitations, chest pain, orthopnea. No edema. GI: No nausea, vomiting, constipation, diarrhea. : No dysuria. Heme: No bleeding, bruising, petechiae. Lymph: No lymphadenopathy. Skin: Dry rash around mouth/lips. No lesions or jaundice. Musculoskeletal: No myalgias, arthralgias. Neuro: No weakness, paresthesias. Psych: Continues to have obsessive compulsive type behaviors, but improved. Endocrine: No polyuria/polydipsia. Psych: No obsessive compulsive type behaviors witnessed today. Performance status; 100 Pain: none reported Physical Exam: BP 122/62 Pulse 83 Temp(Src) 36.6 ??C (97.9 ??F) (Tympanic) Ht 170.2 cm (67.01) Wt 69.3 kg (152 lb 12.5 oz) BMI 23.92 kg/m2 Both height and weight are above the 95% but tracking in parallel and well balanced, with recent increase in height. General: Well-developed, well nourished, no acute distress. Engaged during our encounter. Cooperative with exam. Eyes: PERRLA, EOMI, sclera anicteric. Ears: Tympanic membranes clear, non-bulging. Landmarks readily visualized, +light reflex. Nose: Mucosa and turbinates pink, septum midline. Mouth: Lips pink, good dentition. Throat: Oral mucosa pink and moist. No ulcerations, exudates. Tonsils nl sized without exudate. Neck: No thyromegaly. Chest: Old well healed chest scar from previously removed central line. Resp: Clear to auscultation, no crackles, wheezes. CV: RRR, clear S1/S2, no murmur. Peripheral perfusion normal. No edema. Abdomen: Soft non tender, + BS, No HSM Male : Deferred Lymph: No cervical, supraclavicular, axillary lymphadenopathy. Skin: Dry rash surrounding lips/mouth. Neurologic: Cranial nerves II - X11 intact. Deep tendon reflexes 2+ bilaterally. Strength 5/5 upper & lower extremities. Musculo: Gait coordinated and smooth. No misalignment, defects, deformities. LABORATORY DATA: CBC: Lab Results Component Value Date WBC 7.78 10/21/2013 RBC 4.49 10/21/2013 HGB 12.6 10/21/2013 HCT 37.1 10/21/2013 MCV 83 10/21/2013 MCH 28.0 10/21/2013 MCHC 33.9 10/21/2013 PLT 224 10/21/2013 NEUTROABS 3.80 10/21/2013 BMP: Lab Results Component Value Date NA 142 05/06/2013 K 4.3 05/06/2013 CL 102 05/06/2013 CO2 25 05/06/2013 BUN 16 05/06/2013 CREATININE 0.51 05/06/2013 GLUCOSEFINGE 80 10/02/2008 CALCIUM 9.6 05/06/2013 MG 1.6* 10/13/2008 PHOS 5.5* 10/13/2008 LABALBU 4.8 05/06/2013 LFT: Lab Results Component Value Date TBIL 0.6 05/06/2013 ALKPHOS 237 05/06/2013 AST 30 05/06/2013 ALT 29 05/06/2013 Echo: repeat today, pending IMPRESSION: Jaswinder is an 14 y.o. 5 m.o. boy with a history of AML, treated per [id number] protocol with intensive chemotherapy including gemtuzumab in CR1. Now off therapy 6 years and thriving. Patient Active Problem List Diagnosis ??? Compulsive behavior ??? Dry skin dermatitis ??? History of chemotherapy ??? Learning difficulty ??? 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n ??? Health education/counseling ??? Osteochondroma of tibia PLAN: AML - Off therapy since 10/2008 - CBC with differential, pending - No signs or symptoms suggestive of disease recurrence - Return to clinic in 1 year for history, physical examination and repeat labs + echo Obsessive compulsive behavior - Again, interval decrease in obsessive compulsive behaviors noted, none seen today. Osteochondroma of right tibia - Seen by Dr Claros 12/2010. - 2 cm mass right tibial osteochondroma diagnosed by Dr Claros with no treatment necessary. Recommended yearly follow up. Late Effects -revisited our prior discussion of AML and late effects of therapy including: Cardiac: At risk for cardiomyopathy related to anthracycline exposure. Jaswinder received 492 mg/m2 ofanthracyclines throughout his therapy. The maximum lifetime dose of anthracyclines is 500 mg/m2, placing him at higher risk for cardiotoxicity. Recommend echocardiograms & EKG's performed on a yearly basis. Had ECHO 1 yr ago which was normal. Recommend repeat in 1 year (2014) Bone Health reviewed importance of diet and daily vitamin, in conjunction with exercise to combat osteopenia associated with intensive chemo. Neurocognitive effects: At risks for neurocognitive effects secondary to intrathecal therapy. Jaswinder has known deficits in math and writing, and is especially struggling in his 6th grade math class this year. Reads at grade level. Will provide family with a letter today to aid in getting him plugged in with the right resources to keep him on track academically. Liver, kidney toxicity: At risk for liver and kidney toxicity secondary to high dose chemotherapy. Obtain comprehensive metabolic panel annually. Secondary malignancy. There is the small risk for secondary leukemias related to etoposide exposure.CBC with differential obtained today, pending. Obtain CBC with differential at next visit in 1 year. Overall, again discussed the etiology of AML, and remote likelihood of inherited issues. DISPOSITION: Return to clinic in 1 year for history, physical, labs. Family aware to call with questions or concerns in the interim. Shania Arellano M.D. Pediatrics PGY-3, Pager #[phone] Pt seen and examined in person with Dr Arellano. Reviewed Hx, ROS. Verified PE findings as above noted/edited. Agree with the plan as discussed by Dr Arellano for late effects monitoring of cardiac, metabolic, neurocognitivie. And reviewed with pt's family, staff, and nursing staff. Thanks, Ar Rene MD beeper [phone] documented in this encounter Plan of Treatment Upcoming Encounters Date Type Specialty Care Team Description 12/18/2022 Ancillary Procedure Cardiology 12/18/2022 Office Visit Cardiology Bg Kelsey MD [address] [facility], [address] [place], [place] [address] (Wo rk) documented as of this encounter Procedures Procedure Name Priority Date/Time Associated Comments Diagnosis COMPLETE BLOOD COUNT Routine 10/11/2014 11:21 AML (acute myelo id Results for this EST leukemia) in procedure are i n remission ([facility]) the resu lts section. COMPREHENSIVE Routine 10/11/2014 11:21 AML (acute myeloid Resu lts for this METABOLIC PANEL (CMP) EST leukemia) in proced ure are in remission ([facility]) the resu lts section. documented in this encounter Results (ABNORMAL) COMPREHENSIVE METABOLIC PANEL (CMP) (10/11/2014 11:21 EST) Pathologist Sig nature Potassium 4.2 3.3 - 4.6 mEq/L [facility] Sodium 146 (H) 136 - 145 mEq/L [facility] Chloride 105 96 - 110 mEq/L [facility] CO2 28 24 - 32 mEq/L [facility] Total Alkaline 254 178 - 455 U/L [facility] Phosphatase [facility] Bilirubin, Total 0.5 <1.0 mg/dl [facility] AST 29 15 - 40 U/L [facility] ALT 26 <56 U/L [facility] Albumin 4.5 3.7 - 5.6 g/dl [facility] Total Protein 6.8 6.3 - 8.6 g/dl [facility] Creatinine 0.55 0.42 - 0.71 [facility] mg/dl [facility] GFR, Calculated Age <18 ml/min/1.73m2 [facility] BUN 19 (H) 7 - 17 mg/dl [facility] Calcium 9.6 8.8 - 10.6 [facility] mg/dl [facility] Calculated Calcium 9.5 8.8 - 10.6 [facility] mg/dl [facility] Glucose, Serum 85 70 - 100 mg/dl [facility] Fasting? Unknown [facility] Specimen Blood specimen (specimen) - Blood Performing Organization Address City/State/ZIP Code Phon e Number [facility] [address] [place] [address] SERVICES HEMAGRAM (10/11/2014 11:21 EST) Pathologist Sig nature WBC 7.44 4.5 - 13.0 K/cmm [facility] RBC 4.85 4.50 - 5.30 M/cmm [facility] Hemoglobin 14.0 13.0 - 16.0 gm/dl [facility] HCT 40.3 37.0 - 49.0 % [facility] MCV 83 78 - 98 fl [facility] MCH 28.8 pg [facility] MCHC 34.8 gm/dl [facility] PLT 190 156 - 312 K/cmm [facility] RDW-CV 13.4 % [facility] Specimen Blood specimen (specimen) - Blood Performing Organization Address City/State/ZIP Code Phon e Number [facility] [address] [place] [address] SERVICES documented in this encounter Visit Diagnoses Diagnosis AML (acute myeloid leukemia) in [facility]) (HCC) - Primary Acute myeloid leukemia in remission Compulsive behavior Obsessive-compulsive disorders History of chemotherapy Personal history of antineoplastic chemo therapy Learning difficulty Unspecified delay in development documented in this encounter Care Teams Strategy Lead Relationship Specialty Start Date End Date Bernard Newman MD PCP - General 10/21/13 [place] [address] Sully Baldwin NP Nurse Practitioner 09/05/10 [address] [place] [address] documented as of this encounter
--- OUTSIDE RECORDS SUMMARY | 2022-05-10 08:28 | XMS_ITS | Encounter Summary ---
:2002 Author Organization [facility] Address [address] [place] [address] Care Team Providers Name Role Phone Sully Baldwin ASSOCIATE BRAND MANAGER Unavailable Bernard Newman MD Primary Care Provider [phone] Encounter Details Date Type Department Care Team Description 02/09/2019 Results Only [facility] Jackeline Baldwin NP Pediatric Hematology & [address] [place] [address] Oncology [place], [place] [address] [facility] [address] [place], [place] [id number] [phone] Social History Tobacco Use Types Packs/Day Years [...] Office Visit Cardiology Bg Kelsey MD [address] [facility], [facility] [address] [place], [place] [address] (Wo rk) documented as of this encounter Procedures Procedure Name Priority Date/Time Associated Diagnosis Comme nts TESTS ADDED BY Routine 02/09/2019 11:54 Results f or this PHONE EDT procedure are i n the results section. SLIDE REQUEST Routine 02/09/2019 11:54 Results fo r this EDT procedure are i n the results section. TSH Routine 02/09/2019 11:54 Results for this EDT procedure are i n the results section. documented in this encounter Results TSH (02/09/2019 11:54 EDT) TSH 2.30 0.50 - 4.50 [facility] Comment: uIU/ml LABORATORY SERVICES The results of this assay can be falsely lowered due to the consumption of Biotin. Specimen Blood Performing Organization Address City/[facility]/ZIP Code Phon e Number [facility] [address] [place] [address] SERVICES TESTS ADDED BY PHONE (02/09/2019 11:54 EDT) Tests to be added TSH3 FAXR [id number] [facility] 3058 LABORATORY SERVICES Diagnosis Code R19.7 [facility] Who Called NANDA FOR DR ECKERT [facility] Location Code OPD [facility] Read YES [facility] Back/Confirmed? LABORATORY SERVICES Specimen Other Performing Organization Address City/[facility]/ZIP Code Phon e Number [facility] [address] [place] [address] SERVICES SLIDE REQUEST (02/09/2019 11:54 EDT) Pathologist Sig nature Note A smear is filed in [facility] the Hematology lab LABORATORY SERVICES Specimen Blood Performing Organization Address City/[facility]/ZIP Code Phon e Number [facility] [address] [place] [address] SERVICES documented in this encounter Visit Diagnoses Not on filedocumented in this encounter Care Teams Repair Armature Winder Helper Relationship Specialty Start Date End Date Bernard Newman MD PCP - General 10/21/[place] [address] Sully Baldwin, ASSOCIATE BRAND MANAGER Nurse Practitioner 09/05/10 [address] [place] [phone] documented as of this encounter
--- OUTSIDE RECORDS SUMMARY | 2022-05-10 08:28 | XMS_ITS | Encounter Summary ---
:2002 Author Organization [facility] Address [address] [place] [address] Care Team Providers Name Role Phone Sully Baldwin POWER PLANT TECHNICIAN Unavailable Bernard Newman MD Primary Care Provider [phone] Reason for Visit Reason Comments Cardiac Testing Encounter Details Date Type Department Care Team Description 12/12/2015 Nurse Only [facility] Unknown, Emory horton MD AML (acute myeloid leukemia) in [facility] ([facility]) (Primary Dx); [facility] Pediatric Nurse, Cardiology Pedi History of chemotherapy Cardiology - Main [address] [address] Social History Tobacco Use Types Packs/Day Years Used Date Never Smoker Smokeless Tobacco: Never Used Sex Assigned at Date Recorded Not on file documented as of this encounter Discharge Diagnoses Diagnosis C92.01 Acute myeloblastic leukemia, in r emission-C92.01[ICD-10-CM] Z92.21 Personal history of antineoplasti c chemotherapy-Z92.21[ICD-10-CM] documented in this encounter Discharge Disposition Disposition Code Departure Means Destination Auto Discharge documented in this encounter Progress Notes Francesca Tan RN - 12/12/2015 1226 EST Jaswinder here for an echo & ekg due to history of chemotherapy. Echo & ekg done. documented in this encounter Plan of Treatment Upcoming Encounters Date Type Specialty Care Team Description 12/18/2022 Ancillary Procedure Cardiology 12/18/2022 Office Visit Cardiology Bg Kelsey MD [address] [facility], [address] [place], [place] [address] (Wo rk) documented as of this encounter Visit Diagnoses Diagnosis 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 ([facility] (HCC) - Primary Acute myeloid leukemia in remission History of chemotherapy Personal history of antineoplastic chemo therapy documented in this encounter Care Teams Job Foreman Relationship Specialty Start Date End Date Bernard Newman MD PCP - General 10/21/[address] [place], [place] [phone] Sully Baldwin, POWER PLANT TECHNICIAN Nurse Practitioner 09/05/10 [address] [place] [phone] documented as of this encounter
--- OUTSIDE RECORDS SUMMARY | 2022-05-10 08:28 | XMS_ITS | Encounter Summary ---
:[address] [facility] Address [address] [place] [address] Care Team Providers Name Role Phone Sully Baldwin MANAGER STYLIST Unavailable Bernard Newman MD Primary Care Provider [phone] Encounter Details Date Type Department Care Team Description 12/30/2018 Orders Only [facility] Sully Baldwin MANAGER STYLIST Family history of AML Hospital Pediatric [address] [place] [address] (acute myeloid Hematology & Oncology Avenue leukemia) ([facility] [place], [place] Dx) [address] [facility] [address] [place], [place] [id number] [phone] Social History Tobacco Use Types Packs/Day Years [...] 12/18/2022 Office Visit Cardiology Bg Kelsey MD [address] [place] [address], [facility], Level 1 [place], [place] [address] (Wo rk) documented as of this encounter Results COMPREHENSIVE METABOLIC PANEL (CMP) (02/09/2019 11:54 EDT) Pathologist Sig nature Potassium 4.3 3.3 - 4.6 mEq/L [facility] Sodium 141 136 - 145 mEq/L [facility] Chloride 104 96 - 110 mEq/L [facility] CO2 30 22 - 32 mEq/L [facility] Total Alkaline 69 58 - 237 U/L [facility] Phosphatase [facility] Bilirubin, Total 0.7 <1.0 mg/dl [facility] AST 25 15 - 45 U/L [facility] ALT 23 <41 U/L [facility] Albumin 4.9 3.7 - 5.6 g/dl [facility] Total Protein 7.6 6.3 - 8.6 g/dl [facility] Creatinine 0.80 0.50 - 1.00 [facility] mg/dl [facility] GFR, Calculated Age <18 ml/min/1.73m2 [facility] BUN 19 8 - 21 mg/dl [facility] Calcium 9.9 8.9 - 10.7 [facility] mg/dl [facility] Calculated Calcium 9.2 8.9 - 10.7 [facility] mg/dl [facility] Glucose, Serum 94 70 - 100 mg/dl [facility] Fasting? Unknown [facility] Specimen Blood specimen (specimen) - Blood Performing Organization Address City/State/ZIP Code Phon e Number [facility] [address] [place] [address] SERVICES COMPLETE BLOOD COUNT AND DIFFERENTIAL (02/09/2019 11:54 EDT) Pathologist Sig nature WBC 5.45 4.6 - 11.2 [facility] RBC 5.24 4.50 - 5.30 [facility] Hemoglobin 15.5 13.0 - 16.0 [facility] gm/dl [facility] HCT 45.6 37.0 - 49.0 % [facility] MCV 87 78 - 98 fl [facility] MCH 29.6 pg [facility] MCHC 34.0 gm/dl [facility] RDW-CV 12.8 % [facility] RDW-SD 40.4 fl [facility] PLT 217 156 - 312 K/cmm [facility] MPV 10.2 fl [facility] Neutrophils 53.3 % [facility] Lymphocytes 34.5 % [facility] Monocytes 9.7 % [facility] Eosinophils 1.3 % [facility] Basophils 0.6 % [facility] Immature Grans 0.6 % [facility] ABS Neutrophils 2.91 K/cmm [facility] ABS Lymphs 1.88 K/cmm [facility] ABS Monocytes 0.53 K/cmm [facility] ABS Eosinophils 0.07 K/cmm [facility] ABS Basophils 0.03 K/cmm [facility] ABS Immature Grans 0.03 K/cmm [facility] Type of Diff: Automated [facility] Specimen Blood specimen (specimen) - Blood Performing Organization Address City/State/ZIP Code Phon e Number [facility] [address] [place] [address] SERVICES documented in this encounter Visit Diagnoses Diagnosis Family history of AML (acute myeloid matt kemia) - Primary Family history of leukemia documented in this encounter Care Teams Front Worker Relationship Specialty Start Date End Date Bernard Newman MD PCP - General 10/21/13 [place] [address] Sully Baldwin NP Nurse Practitioner 09/05/10 [address] [place] [phone] documented as of this encounter
--- OUTSIDE RECORDS SUMMARY | 2022-05-10 08:28 | XMS_ITS | Encounter Summary ---
:2002 Author Organization [facility] Address [address] [place] [address] Care Team Providers Name Role Phone Sully Baldwin SOFTWARE ENGINEER DEVELOPER Unavailable Bernard Newman MD Primary Care Provider [phone] Reason for Referral Cardiology (Routine) - New Request Specialty Diagnoses / Procedures Referred By Contact Refer red To Contact Diagnoses History of antineoplastic chemotherapy Brandi Kam NP Procedures TRANSTHORACIC ECHO (TTE) COMPLETE [address] [place] [phone] Referral ID Status Reason Start Date Expiration Date Visits V isits Requested Authorized [id number] New Request 12/11/2020 1 1 Encounter Details Date Type Department Care Team Description 12/11/[address] [facility] Brandi Kam, [facility] polisher numeral antineoplastic Hematology & [address] [place] chemotherapy (Primary Oncology - [facility]) [place], [place] 111 [facility] [address] [place] [address] [phone] Social History Tobacco Use Types Packs/Day Years [...] MD 111 [facility] Level 1 [place], [place] [address] (Wo rk) Pending Results Name Type Priority Associated Diagnoses Date/Ti ia TRANSTHORACIC ECHO Echocardiography Routine History of 12/11 15:46 (TTE) COMPLETE antineoplastic EST chemotherapy documented as of this encounter Visit Diagnoses Diagnosis History of antineoplastic chemotherapy - Primary Personal history of antineoplastic chemo therapy documented in this encounter Care Teams Manager Community Development Relationship Specialty Start Date End Date Bernard Newman MD PCP - General 10/21/13 [place] [address] Sully Baldwin, MARIE Nurse Practitioner 09/05/10 [address] [place] [address] documented as of this encounter
--- OUTSIDE RECORDS SUMMARY | 2022-05-10 08:28 | XMS_ITS | Encounter Summary ---
:2002 Author Organization Health system Address [address] [place] [address] Care Team Providers Name Role Phone Sully Baldwin SUPERVISING FLOORPERSON Unavailable Bernard Newman MD Primary Care Provider [phone] Encounter Details Date Type Department Care Team Description 10/11/2014 Results Only [facility] Jackeline Baldwin NP Pediatric Hematology & [address] [place] [address] 111 [facility] [address] [place], [place] [address] [phone] Social History Tobacco Use Types Packs/Day Years Used Date Never Smoker Smokeless Tobacco: Never Used Sex Assigned at Date Recorded Not on file documented as of this encounter Plan of Treatment Upcoming Encounters Date Type Specialty Care Team Description 12/18/2022 Ancillary Procedure Cardiology 12/18/2022 Office Visit Cardiology Bg Kelsey MD [address] [place] [address] [address] [place], [place] [address] (Wo rk) documented as of this encounter Procedures Procedure Name Priority Date/Time Associated Diagnosis Comme nts SLIDE REQUEST Routine 10/11/2014 11:21 EST Result s for this procedure are i n the results section . documented in this encounter Results SLIDE REQUEST (10/11/2014 11:21 EST) Pathologist Sig nature Note A smear is filed in [facility] the Hematology lab [facility] Specimen Blood Performing Organization Address City/State/ZIP Code Phon e Number [facility] [address] [place] [address] SERVICES documented in this encounter Visit Diagnoses Not on filedocumented in this encounter Care Teams Director Of Physical Therapy Relationship Specialty Start Date End Date Bernard Newman MD PCP - General 10/21/[address] [place] [address] Sully Baldwin NP Nurse Practitioner 09/05/10 [address] [place] [phone] documented as of this encounter
--- OUTSIDE RECORDS SUMMARY | 2022-05-10 08:28 | XMS_ITS | Encounter Summary ---
:2002 Author Organization [facility] Address [address] [place] [address] Care Team Providers Name Role Phone Sully Baldwin NURSING SERVICES MANAGER Unavailable Bernard Newman MD Primary Care Provider [phone] Reason for Visit Cardiology (Routine) - New Request Specialty Diagnoses / Procedures Referred By Contact Refer red To Contact Diagnoses History of antineoplastic chemotherapy Brandi Kam NP Procedures TRANSTHORACIC ECHO (TTE) COMPLETE [address] [place] [phone] Referral ID Status Reason Start Date Expiration Date Visits V isits Requested Authorized [id number] New Request 12/11/2020 1 1 Encounter Details Date Type Department Care Team Description 12/11/2020 Ancillary Procedure [facility] Pediatric antineopl astic Cardiology - [facility] [place] [address] [place] [address] Social History Tobacco Use Types [...] Office Visit Cardiology Bg Kelsey MD 111 [facility], [facility], Level 1 [place], [place] [address] (Wo rk) Pending Results Name Type Priority Associated Diagnoses Date/Ti me TRANSTHORACIC ECHO Echocardiography Routine History of 12/11 15:46 (TTE) COMPLETE antineoplastic EST chemotherapy documented as of this encounter Visit Diagnoses Diagnosis History of antineoplastic chemotherapy Personal history of antineoplastic chemo therapy documented in this encounter Care Teams Table Attendant Relationship Specialty Start Date End Date Bernard Newman MD PCP - General 10/21/[address] [place] [address] [place] [address] Sully Baldwin, NURSING SERVICES MANAGER Nurse Practitioner 09/05/10 [address] [place] [address] documented as of this encounter
--- OUTSIDE RECORDS SUMMARY | 2022-05-10 08:28 | XMS_ITS | Encounter Summary ---
:2002 Author Organization [facility] Address [address] [place] [address] Care Team Providers Name Role Phone Sully Baldwin DEGREASING SOLUTION MIXER Unavailable Bernard Newman MD Primary Care Provider [phone] Reason for Visit Reason Onset Date Comments Pre-visit Orders 12/09/2018 Encounter Details Date Type Department Care Team Description 12/09/2018 Orders Only [facility] Shellie Garza R N AML (acute myeloid Hospital Pediatric [address] [place] [address] leukemia) in Hematology & Oncology [place], [place] [address] remission ([facility]) - [facility] (Primary Dx) [address] [place], [place] [phone] Social History Tobacco Use Types Packs/Day Years [...] Kelsey MD 111 [facility], [facility], Level 1 [place], [place] [address] (Wo rk) documented as of this encounter Visit Diagnoses Diagnosis 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
--- OUTSIDE RECORDS SUMMARY | 2022-05-10 08:28 | XMS_ITS | Encounter Summary ---
:2002 Author Organization [facility] Address [address] [place] [address] Care Team Providers Name Role Phone Sully Baldwin LAUNDRY OPERATOR FINISHING Unavailable Bernard Newman MD Primary Care Provider [phone] Encounter Details Date Type Department Care Team Description 04/25/2020 Travel Social History Tobacco Use Types Packs/Day Years Used Date Never Smoker Smokeless Tobacco: Never Used Sex Assigned at Date Recorded Not on file COVID-19 Exposure Response Date Recorded In the last month, have you been in contact with No / Unsure 04/25/2020 12:17 EDT someone who was confirmed or suspected [...] Office Visit Cardiology Bg Kelsey MD [address] [facility], Level 1 [place], [place] [address] (Wo rk) documented as of this encounter Visit Diagnoses Not on filedocumented in this encounter Care Teams Community Service Officer Coordinator Relationship Specialty Start Date End Date Bernard Newman MD PCP - General 10/21/13 [place] [address] Sully Baldwin NP Nurse Practitioner 09/05/[address] [place] [phone] documented as of this encounter
--- OUTSIDE RECORDS SUMMARY | 2022-05-10 08:28 | XMS_ITS | Encounter Summary ---
:2000 Author Organization [facility] Address [address] [place] [address] Care Team Providers Name Role Phone Sully Baldwin PHLEBOTOMY LAB ASSISTANT Unavailable Bernard Newman MD Primary Care Provider [phone] Reason for Referral Cardiology (Routine) - Closed Specialty Diagnoses / Procedures Referred By Contact Refer red To Contact Cardiology / Diagnoses 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n ([facility]) ([facility]) History of antineoplastic chemotherapy Dudley Rene MD Ep4 Pedi Cardiology Pediatric Cardiology Procedures ECHOCARDIOGRAM TX ECHO HEART XTHORACIC,COMPLETE W DOPPLER [address] Phone: [phone] Referral ID Status Reason Start Date Expiration Date Visits Requ ested Visits Authorized [id number] Closed 12/12/2015 1 1 Reason for Visit Reason Onset Date Comments Surveillance 11/30/2015 Encounter Details Date Type Department Care Team Description 11/30/2015 Orders Only [facility] Pat Farris RN 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 ([facility]) (Primary Dx); Hospital Pediatric [address] [place] [address] History of antineoplastic chemotherapy Hematology & [place], [place] Oncology - Main [address] [place] [address] Social History Tobacco Use Types Packs/Day Years Used Date Never Smoker Smokeless Tobacco: Never Used Sex Assigned at Date Recorded Not on file documented as of this encounter Plan of Treatment Upcoming Encounters Date Type Specialty Care Team Description 12/18/2022 Ancillary Procedure Cardiology 12/18/2022 Office Visit Cardiology Bg Kelsey MD [address] [facility], [facility], Level 1 [place], [place] [address] (Wo rk) documented as of this encounter Procedures Procedure Name Priority Date/Time Associated Diagnosis Comme nts ECHOCARDIOGRAM Routine 12/12/2015 15:25 AML (acute myeloid Res ults for this EST leukemia) in remission proce dure are in ([facility]) the results History of section. antineoplastic chemotherapy documented in this encounter Results ECHOCARDIOGRAM (12/12/2015 15:25 EST) Specimen Narrative [facility] - 12/12/2015 18:33 EST Patient Name: DIANA ROSS Chart Number: [id number] Site Location: Date of Appt: Saturday, December 12, 2015 , 9:30 AM Pediatric Echocardiogram Report Demographics and Visit Data: : 2000. ??Age: 15y/7m/7d. ??Sex: M. ??BSA (m 2): 1.98. ?? Height (cm): 179.1. ??Weight (kg): 78.2. ??BMI (kg/m 2): 24.38. ?? [facility] ??Height Centile: 98.5. ?? Weight Centile: 99.48. ??Person requesti ng test: DUDLEY RENE MD ?? Sweatband Decorating Machine Operator: Lexy Payan. ??Reason for test: C92.01-Acute myeloblastic leukemia, in [id number] Z92.21-Per belinda history of antineoplastic ch. ?? Procedure Description: ECHOCARDIOGRAM. ? ? Summary: Normal atrioventricular and ventriculoar terial concordance. Normal cardiac anatomy and performance. Little change from previous studies when interval growth accounted for. Leukemia, s/p adriamycin therapy. Complete 2-dimensional study performed, with pulse/continuous wave Doppler samplings, and color flow Doppler imagin g reviewed. Atrial Situs: Solitus Ventricular Situs: D - Looped Arterial Situs: Solitus Findings: ?? Veins and Atria: ?? >> Normal Left Atrium >> Normal Right Atrium >> Normal Systemic Veins >> Intact Atrial Septum ?? A-V Canal: ?? >> Tricuspid regurgitation, trivial -of low velocity. ?? >> Normal Tricuspid Valve >> Normal Mitral Valve ?? Ventricles: ?? >> Normal Right Ventricle >> Normal Left Ventricle -with satisfactory biventricular perform ance, and no outflow obstruction or abnormal hypertrophy. ?? >> Intact Ventricular Septum ?? Conotruncus: ?? >> Normal Pulmonary Valve >> Normal Aortic Valve -trileaflet. -peak laminar ascending aortic flow [place] 1.8 m/sec., consistent with a hyperdynamic circulation. ? Great Arteries: ?? >> Left aortic arch -unobstructed. ?? >> Patent ductus arteriosus, ruled out >> Normal Aorta (adjacent to aortic valve). ?? >> Normal Proximal Coronary Arteries ?? Pericardium: ?? (No abnormalities seen) ?? Other: ?? >> S/p adriamycin therapy >> Leukemia (acute myeloid leukemia in remission). ? Measures: ?? Systemic Arterial Function: ?? Name ?Value ?Units ?Z-Score ?Min ?Max ?? Systolic BP ? 1 19 ?mmHg ? 1.16 ? 82.85 ??128.35 ?? Diastolic BP ?6 5 ? mmHg ? 1.13 ? 35.66 ??72.93 ?? Pulse Pressure ?54 .00 ?mmHg ? Mean BP ? 83.0 ? mmHg ? 0.53 ? 57.48 ??97.77 ? 2D: ?? Name ?Value ?Units ?? LV Diastolic Volume Index ? 98.99 ?ml/m 2 ? (Bullet) ?? M-Mode: ?? Name ?Value ?Units ?Z-Score ?Min ?Max ?? LV Diastolic Septal ? 0.89 ? cm ? -0.8 ? 0.71 ?? 1.33 ?? Thickness M-Mode LV Diastolic ? 5.68 ? cm ? 1.21 ? 4.45 ?? 5.98 ?? Dimension LV Diastolic Wall ? 0.79 ? cm ? -1.24 ?0.7 ?1.21 ?? Thickness M-Mode LV Systolic ?3.79 ? cm ? 1.1 ?2.63 ?? 4.12 ?? Dimension LV Fractional Shortening ?33.27 ?% ?-0.6 ? 29.2 ?? 42.52 ?? M-Mode LV Mass / Height 2 ? 56.07 ?g/m 2 ? Relative Wall Thickness ? 0.30 ? LV Systolic Function: ?? Name ?Value ?Units ?Z-Score ?Min ?Max ?? LV Diastolic Volume ? 196.0 0 ?? ml ? 1.36 ? 117.85 210.12 ?? (Bullet) LV Systolic Volume ?75.4 2 ?ml ? 0.58 ? 43.42 ??101.97 ?? (Bullet) LV Ejection Fraction ?0.62 ?-0.21 ?0.54 ?? 0.72 ?? (Bullet) 2D LV Mass ? 113.40 ?? gm ? -1.59 ?105.22 188.17 ?? 2D LV Volume Index ?98.9 9 ? 2D LV Mass Index ?57. 27 ?g/m 2 ? Endocardial FS ?33 .27 ?% ?-0.6 ? 29.2 ?? 42.52 ?? FS Vs Stress ?3 3.27 ?% ? Cardiac Geometry: ?? Name ?Value ?Units ?Z-Score ?Min ?Max ?? M-Mode LV Mass ?17 9.84 ?? gm ? -0.29 ?128.49 282.36 ?? M-Mode LV Mass Index ?90.83 ?g/m 2 ? LV Diastolic [place] ?8.40 ? cm ? Epicardial Diameter LV Diastolic Epicardial ? 44.20 ?cm 2 ? Cross-Sectional Area LV Systolic [place] ? 7.24 ? cm ? Diameter LV Systolic ? 1 2.50 ?cm 2 ? Cross-sectional Area LV Diastolic [place] ?8.40 ? cm ? 0.2 ?6.81 ?? 9.69 ?? Diameter LV Diastolic ?2 8.00 ?cm 2 ? Cross-sectional Area LV Midwall Diastolic ?6.47 ? cm ? 0.8 ?5.42 ?? 6.91 ?? Dimension M-Mode LV Mass / Height ? 100.41 ?? g/m ? M-Mode LV Mass / ?37. 28 ?g/m ? 19.4 ?? 38.6 ?? Height 2.7 ?? Aorta: ?? Name ?Value ?Units ?Z-Score ?Min ?Max ?? Ao Annulus Diameter ? 2.00 ? cm ? -0.96 ?1.79 ?? 2.62 ?? Ao Root Diameter ?2.6 0 ? cm ? -0.92 ?2.25 ?? 3.56 ?? AV Area (using Diameter) ?3.14 ? cm 2 ? Sinotubular Junction ?2.12 ? cm ? -1.3 ? 1.92 ?? 3.1 ?? Diameter Ascending Ao Diameter ? 2.21 ? cm ? -1.37 ?2.02 ?? 3.28 ? Analysis Aortic Valve Doppler: ?? Name ?Value ?Units ?? AV Area (using Diameter) ?3.14 ? cm 2 ? Windsor's Name: ALY FLORES MD Date/time of reading: Dec 12 2015 - 6:31:53 PM Report created at 6:33:22 PM on Saturday, December 12, 2015 Report Number: Note:Study interpreted at The unless otherwise noted Procedure Note Aly Flores MD - 12/12/2015 Patient Name: DIANA ROSS Chart Number: [id number] Site Location: Date of Appt: Saturday, December 12, 2015 , 9:30 AM Pediatric Echocardiogram Report Demographics and Visit Data: : 2000. Age: 15y/7m/7d. Sex: M. BSA (m 2): 1.98. Height (cm): 179.1. Weight (kg): 78.2. B DE (kg/m 2): 24.38. [facility]. Height Centile: 98.5. Weight Centile: 99.48. Person requesting test: DUDLEY RENE MD Sweatband Decorating Machine Operator: Lexy Payan. Reason fo r test: C92.01-Acute myeloblastic leukemia, in [id number] Z92.21-Per belinda history of antineoplastic ch. Procedure Description: ECHOCARDIOGRAM. Summary: Normal atrioventricular and ventriculoar terial concordance. Normal cardiac anatomy and performance. Little change from previous studies when interval growth accounted for. Leukemia, s/p adriamycin therapy. Complete 2-dimensional study performed, with pulse/continuous wave Doppler samplings, and color flow Doppler imagin g reviewed. Atrial Situs: Solitus Ventricular Situs: D - Looped Arterial Situs: Solitus Findings: Veins and Atria: >> Normal Left Atrium >> Normal Right Atrium >> Normal Systemic Veins >> Intact Atrial Septum A-V Canal: >> Tricuspid regurgitation, trivial -of low velocity. >> Normal Tricuspid Valve >> Normal Mitral Valve Ventricles: >> Normal Right Ventricle >> Normal Left Ventricle -with satisfactory biventricular perform ance, and no outflow obstruction or abnormal hypertrophy. >> Intact Ventricular Septum Conotruncus: >> Normal Pulmonary Valve >> Normal Aortic Valve -trileaflet. -peak laminar ascending aortic flow [facility] 1.8 m/sec., consistent with a hyperdynamic circulation. Great Arteries: >> Left aortic arch -unobstructed. >> Patent ductus arteriosus, ruled out >> Normal Aorta (adjacent to aortic valve). >> Normal Proximal Coronary Arteries Pericardium: (No abnormalities seen) Other: >> S/p adriamycin therapy >> Leukemia (acute myeloid leukemia in remission). Measures: Systemic Arterial Function: Name Value Units Z-Score Min Max Systolic BP 119 mmHg 1.16 82.85 128.35 Diastolic BP 65 mmHg 1.13 35.66 72.93 Pulse Pressure 54.00 mmHg Mean BP 83.0 mmHg 0.53 57.48 97.77 2D: Name Value Units LV Diastolic Volume Index 98.99 ml/m 2 (Bullet) M-Mode: Name Value Units Z-Score Min Max LV Diastolic Septal 0.89 cm -0.8 0.71 1. 33 Thickness M-Mode LV Diastolic 5.68 cm 1.21 4.45 5. 98 Dimension LV Diastolic Wall 0.79 cm -1.24 0.7 1.21 Thickness M-Mode LV Systolic 3.79 cm 1.1 2.63 4.12 Dimension LV Fractional Shortening 33.27 % -0.6 29 .2 42.52 M-Mode LV Mass / Height 2 56.07 g/m 2 Relative Wall Thickness 0.30 LV Systolic Function: Name Value Units Z-Score Min Max LV Diastolic Volume 196.00 ml 1.36 117.8 5 210.12 (Bullet) LV Systolic Volume 75.42 ml 0.58 43.42 1 01.97 (Bullet) LV Ejection Fraction 0.62 -0.21 0.54 0.7 2 (Bullet) 2D LV Mass 113.40 gm -1.59 105.22 188.17 2D LV Volume Index 98.99 2D LV Mass Index 57.27 g/m 2 Endocardial FS 33.27 % -0.6 29.2 42.52 FS Vs Stress 33.27 % Cardiac Geometry: Name Value Units Z-Score Min Max M-Mode LV Mass 179.84 gm -0.29 128.49 28 2.36 M-Mode LV Mass Index 90.83 g/m 2 LV Diastolic [place] 8.40 cm Epicardial Diameter LV Diastolic Epicardial 44.20 cm 2 Cross-Sectional Area LV Systolic [place] 7.24 cm Diameter LV Systolic 12.50 cm 2 Cross-sectional Area LV Diastolic [place] 8.40 cm 0.2 6.81 9.69 Diameter LV Diastolic 28.00 cm 2 Cross-sectional Area LV Midwall Diastolic 6.47 cm 0.8 5.42 6. 91 Dimension M-Mode LV Mass / Height 100.41 g/m M-Mode LV Mass / 37.28 g/m 19.4 38.6 Height 2.7 Aorta: Name Value Units Z-Score Min Max Ao Annulus Diameter 2.00 cm -0.96 1.79 2 .62 Ao Root Diameter 2.60 cm -0.92 2.25 3.56 AV Area (using Diameter) 3.14 cm 2 Sinotubular Junction 2.12 cm -1.3 1.92 3 .1 Diameter Ascending Ao Diameter 2.21 cm -1.37 2.02 3.28 Analysis Aortic Valve Doppler: Name Value Units AV Area (using Diameter) 3.14 cm 2 Windsor's Name: ALY FLORES MD Date/time of reading: Dec 12 2015 - 6:31:53 PM Report created at 6:33:22 PM on Saturday, December 12, 2015 Report Number: Note:Study interpreted at The unless otherwise noted Performing Organization Address City/State/ZIP Code Phon e Number [facility] documented in this encounter Visit Diagnoses Diagnosis AML (acute myeloid leukemia) in [facility] ([facility]) (HCC) - Primary Acute myeloid leukemia in remission History of antineoplastic chemotherapy Personal history of antineoplastic chemo therapy documented in this encounter Care Teams Hand Molder Relationship Specialty Start Date End Date Bernard Newman MD PCP - General 10/21/13 [place] [address] Sully Baldwin NP Nurse Practitioner 09/05/[address] [place] [phone] documented as of this encounter
--- OUTSIDE RECORDS SUMMARY | 2022-05-10 08:28 | XMS_ITS | Encounter Summary ---
:2000 Author Organization [facility] Address [address] [place] [address] Care Team Providers Name Role Phone Sully Baldwin FIRE EXTINGUISHER REPAIRER Unavailable Bernard Newman MD Primary Care Provider [phone] Reason for Visit Reason Onset Date Comments Orders (Non Pre-visit) 10/05/2014 Encounter Details Date Type Department Care Team Description 10/05/2014 Telephone [facility] Orders (Non Pre-visit[facility] Hospital Pediatric [address] [place] [address] Hematology & Oncology [facility] [phone] [place] [address] [place] [address] [phone] Social History Tobacco Use Types Packs/Day Years Used Date Never Smoker Smokeless Tobacco: Never Used Sex Assigned at Date Recorded Not on file documented as of this encounter Miscellaneous Notes Telephone Encounter - Sully Baldwin NP - 10/05/2014 4673 EST Spoke with mother of Jaswinder Ross. He has appointment on 10/11 and she would like him to have labs drawn prior to his visit. She would like them drawn at [facility] Medical [place]. Plan: CBC w/diff and CMP in [facility] for lab draw on 10/11. Sully Baldwin CPNP Pediatric Heme/Oncology elephone Encounter - Wagner Manzo - 10/05/2014 0912 EST Calling to have orders put in for labs, she'd like to get them done before 12.2. documented in this encounter Plan of Treatment Upcoming Encounters Date Type Specialty Care Team Description 12/18/2022 Ancillary Procedure Cardiology 12/18/2022 Office Visit Cardiology Bg Kelsey MD 111 [facility], Level 1 [place], [place] [phone] (Wo rk) documented as of this encounter Visit Diagnoses Not on filedocumented in this encounter Care Teams Merchandise For Resale Purchasing Agent Relationship Specialty Start Date End Date Bernard Newman MD PCP - General 10/21/[address] [place] [address] [address] [place], [place] [id number] Sully Baldwin, FIRE EXTINGUISHER REPAIRER Nurse Practitioner 09/05/10 [address] [place] [phone] documented as of this encounter
--- OUTSIDE RECORDS SUMMARY | 2022-05-10 08:28 | XMS_ITS | Encounter Summary ---
:2000 Author Organization [facility] Address [address] [place] [address] Care Team Providers Name Role Phone Sully Baldwin FURNITURE MAKER Unavailable Bernard Newman MD Primary Care Provider [phone] Reason for Visit Reason Comments Cardiac Testing Encounter Details Date Type Department Care Team Description 05/06/2014 Procedure visit [facility] Children's Emory Da Silva MD AML (acute myeloid leukemia) in [facility] ([facility]) (Primary Dx); [facility] Lexy Payan, JUAQUIN [address] [place] [address] History of chemotherapy; Cardiology - Main Acute myel oblastic leukemia ([facility]); [place] Personal history of chemothe rapy [address] [place] [phone] Social History Tobacco Use Types Packs/Day Years Used Date Never Smoker Smokeless Tobacco: Never Used Sex Assigned at Date Recorded Not on file documented as of this encounter Plan of Treatment Upcoming Encounters Date Type Specialty Care Team Description 12/18/2022 Ancillary Procedure Cardiology 12/18/2022 Office Visit Cardiology Bg Kelsey MD 111 [facility] 1 [place] [address] (Wo rk) documented as of this encounter Procedures Procedure Name Priority Date/Time Associated Diagnosis Comme nts ECG REPORT - 05/09/2014 10:05 SCANNED EDT EKG 12-LEAD Routine 05/06/2014 9:06 AML (acute myeloid Result s for this EDT leukemia) in procedure are i n remission ([facility]) the results History of section. chemotherapy documented in this encounter Results EKG 12-LEAD (05/06/2014 9:06 EDT) Specimen Narrative [facility] EKG - 05/06/2014 12:25 EDT ?[facility] ? Test Date: ?2014-05-06 Pat Name: ? DIANA ROSS ? Department: ?? Pedi-Card ? Room: ? Gender: ? M ?Extraction Supervisor: ?? [id number] : ?2000 ? Requested By: LAUREN Woo Order Number: [id number] ? Jesse PAINTING: ?? ALY FLORES MD ? Measurements Intervals ?[place] ? Rate: ? 74 ? P: ?59 LA: ? 150 ?QRS: ?64 QRSD: ? 79 ? T: ?53 QT: ? 390 ? QTc: ?434 ? Interpretive Statements ..PEDIATRIC ECG INTERPRETATION Normal sinus rhythm Normal ECG, including ventricular forces and intervals. Compared to ECG of 05/06/2013 13:16:58, no significant changes I reviewed the tracing and agreed or kenney mabel the report. Electronically Signed On 05-06-14 12:25:35 EDT by ALY Lewis MD. Procedure Note Aly Flores MD - 05/06/2014 [facility] Test Date: 2014-05-06 Pat Name: DIANA ROSS Department: [facility] [place] i-Card Room: Gender: M Extraction Supervisor: [id number] : 2000 Requested By: LAUREN Woo Order Number: [id number] Reading MD: Maryjo FLORES MD Measurements Intervals [place] Rate: 74 P: 59 LA: 150 QRS: 64 QRSD: 79 T: 53 QT: 390 QTc: 434 Interpretive Statements ..PEDIATRIC ECG INTERPRETATION Normal sinus rhythm Normal ECG, including ventricular forces and intervals. Compared to ECG of 05/06/2013 13:16:58, no significant changes I reviewed the tracing and agreed or kenney mabel the report. Electronically Signed On 05-06-14 12:25:35 EDT by ALY Lewis MD. 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 ([facility]) (HCC) - Primary Acute myeloid leukemia in remission History of chemotherapy Personal history of antineoplastic chemo therapy Acute myeloblastic leukemia (HCC) Acute myeloid leukemia, without mention of having achieved remission Personal history of chemotherapy Personal history of antineoplastic chemo therapy documented in this encounter Orders EKG Orders Without Results Count Last Ordered Date Fir st Ordered Date EKG 12-LEAD 1 05/06/2014 Procedures Count Last Ordered Date First Ordered Date ECG REPORT - SCANNED 1 05/09/2014 documented in this encounter Care Teams Lean Consultant Relationship Specialty Start Date End Date Bernard Newman MD PCP - General 10/21/[address] [place] [address] [place] [address] Sully Baldwin, FURNITURE MAKER Nurse Practitioner 09/05/[address] [place] [phone] documented as of this encounter
--- OUTSIDE RECORDS SUMMARY | 2022-05-10 08:28 | XMS_ITS | Encounter Summary ---
:2000 Author Organization [facility] Address [address] [place] [address] Care Team Providers Name Role Phone Sully Baldwin ICT DEVELOPMENT MANAGER Unavailable Bernard Newman MD Primary Care Provider [phone] Reason for Referral Cardiology (Routine) - Closed Specialty Diagnoses / Referred By Contact Referred To Contact Procedures Cardiology / Pediatric Diagnoses Acute myeloid leukemia in remission ([facility]) ([facility]) Dudley Rene MD Ep4 Pedi Cardiology Cardiology Procedures ECHOCARDIOGRAM [place] ECHO HEART XTHORACIC,COMPLETE W DOPPLER [address] 9 [phone] Referral ID Status Reason Start Date Expiration Date Visits Requ ested Visits Authorized [id number] Closed 01/13/2018 1 1 Reason for Visit Reason Onset Date Comments Pre-visit Orders 10/21/2017 Encounter Details Date Type Department Care Team Description 10/21/2017 Orders Only [facility] Shellie Garza R N [facility] Pediatric [address] [place] [address] leukemia in remission Hematology & Oncology [place], [place] [address] ([facility]) ([facility]) - Main [place] (Primary Dx) [address], [place] [address] Social History Tobacco Use Types Packs/Day Years [...] MD 111 [facility], [facility], Level 1 [place], [place] [address] (Wo rk) Scheduled Orders Name Type Priority Associated Diagnoses Order S chedule EKG 12-LEAD ECG Routine Acute myeloid leukemia in re mission Ordered: 10/21/2017 ([facility]) documented as of this encounter Procedures Procedure Name Priority Date/Time Associated Diagnosis Comme nts ECHOCARDIOGRAM Routine 01/13/2018 11:39 EST Acute myeloid Resu lts for this leukemia in remission proced ure are in the ([facility]) ([facility]) results section. documented in this encounter Results ECHOCARDIOGRAM (01/13/2018 11:39 EST) Specimen Narrative [facility] - 01/13/2018 14:50 EST Pediatric Cardiology [address] [place] [address] Date of study: 01/13/2018 Transthoracic Echocardiogram Report M-mode, complete 2D, complete spectral D oppler, and color Doppler *STUDY CONCLUSIONS* Impressions: ??Normal cardiac anatomy an d performance, no significant change from prior study. Summary: - History of AML s/p adriamycin therapy. - Normal cardiac anatomy. - No significant valvar regurgitation. - No intracardiac shunts visualized. - Normal left ventricular size, wall thi ckness, and systolic function. - Left ventricular diastolic function es timate within normal limits ??based on mitral inflow and tissue dop pler parameters. - Qualitatively normal right ventricular size and systolic function. - No intracardiac masses and/or lines vi sualized. - Overall no significant change when com pared to prior study (01/14/2017). *PATIENT PRESENTATION* [age]: ?17.7yr Height: ? 184cm (72.4in ) S/D Pressure: 120 / 58 Weight: ? 91kg (200.2lb ) BSA: ?2.17m^2 Location: ? Echocardiography Labor or Facility: ? [facility] Assistant Professor Of Communication: ??Shaunna Demarco RN Attending: ?Dudley Rene MD Referring: ?Bernard Newman MD Ordering: ? Dudley Rene MD *PROCEDURE DATA* Procedure information: ??Pertinent image s and digital data are archived for permanent storage and are available for subsequent review. ??Study status: ??Routine. Transthoracic echocar diography. ??M-mode, complete 2D, complete spectral Doppler, and color Dop pler. Transthoracic echocardiography was performed. Images w ere obtained using a [employer] Epiq 1 cardiac ultrasound machine. ??Blood pres sure: ? 120/58 ?Height percentile: 93.9. ?Weight percentile : 98. *INDICATIONS AND HISTORY* Indications: ?? C92.01 AML. ??C92. AML . ??S/p chemo. ??C92. Acute myeloblastic leukemia in remission. *CARDIAC ANATOMY* ANATOMIC RELATIONSHIPS Normal atrial situs. Concordant atrioven tricular alignment. Ventricular d-loop. Concordant ventriculoarterial co nnection. Normally related great arteries. VEINS AND ATRIA Atrial septum: ??No evidence for a signi ficant atrial septal defect; limited subxiphoid windows. Left atrium: ??The atrium is normal in s ize. Right atrium: ??The atrium is normal in size. Systemic veins: Inferior vena cava: The vessel is normal in size. The vessel course is normal. Superior vena cava: The vessel is normal in size. The vessel course is normal. Pulmonary veins: ??Visualization of the pulmonary venous anatomy is incomplete, but a significant abnormalit y is unlikely. A-V CANAL Tricuspid valve: ?? The valve [...] shows no obstruction. Systolic function is satisfactory. ??The tricuspid jet envelo pe definition is inadequate for estimation of right ventricular systolic pressure. There are no indirect findings (abnormal right ventricular vol ume or geometry, altered pulmonary flow velocity profile, or left omalley septal displacement) which would suggest moderate or severe pulmona ry hypertension. Ventricular septum: ?? Thickness is norm al. [...] the normal range. The re is no regurgitation. Coronaries: ??Coronary arteries are not evaluated in the study. GREAT ARTERIES Aorta: ?? Normal unobstructed left-sided aortic arch. ?? Aortic root: The aortic root is not dilated. Systemic-pulmonary shunts: ??No evidence for a patent ductus arteriosus. PERICARDIUM There is no significant pericardial effu emily. *MEASUREMENT TABLES* Left ventricle ?Valu e ? 01/14/2017 Reference ? Z LV end-diastolic ?152 ? ? ml ?165 ? ---- volume, 3D LV end-systolic ? 39 ?ml ?50 ? ---- volume, 3D LV ejection ? 75 ?% ? 70 ? ---- fraction, 3D Stroke volume, 3D ? 113 ?? ml ?115 ? ---- LV end-diastolic ?70 ?ml/m^2 ??79 ? ---- volume/bsa, 3D LV end-systolic ? 18 ?ml/m^2 ??24 ? ---- volume/bsa, 3D Stroke volume/bsa, ?52.1 ? ?ml/m^2 ??54.8 ? ---- 3D LV wall mass, 3D ?208 ? ? g ? 218 ? ---- LV wall mass/bsa, ? 96 ?g/m^2 ?? 104 ? ---- 3D LV mass/height, 3D ?1.13 ? ?g/cm ?1.19 ? ---- LV mass/height^2.7, ? 40.09 g /m^2.7 42.96 ? ---- 3D LV area, ED, PSAX ? 24.00 cm^2 ? ---- PM LV area, ES, PSAX ? 10.90 cm^2 ? ---- PM LV fx area change, ?55 ?% ? ---- PSAX PM LV epicardial area, ? 36.70 c m^2 ? ---- ED, PSAX PM LV ID, major axis, ?10.10 cm ? 7.53 - 10.33 ??1.6 ED, A4C LV ID, major axis, ?7.79 ? ?cm ? 6.03 - 8.65 ?? 0.7 ES, A4C LV ID/bsa, major ?4.7 ? ? cm/m^2 ?? ---- axis, ED, A4C LV ID/bsa, major ?3.6 ? ? cm/m^2 ?? ---- axis, ES, A4C LV apex cone ?11. 10 cm ? ---- length, ED, A4C LV end-diastolic ?202 ? ? ml ? 134 - 235 ? 0.7 volume, A/L LV end-systolic ? 71 ?ml ? 55 - 105 ?-0.4 volume, A/L LV ejection ? 0.6 5 ? 0.55 - 0.72 ?? 0.4 fraction, A/L LV end-diastolic ?93 ?ml/m^2 ?? ---- volume/bsa, A/L LV end-systolic ? 33 ?ml/m^2 ?? ---- volume/bsa, A/L LV ID, ED, MM ? 5.34 ??cm ?5.49 ? 4.60 - 6.21 ?? -0.2 LV ID, ES, MM ? 3.38 ??cm ?3.68 ? 2.72 - 4.30 ?? -0.3 LV ID/bsa, ED, MM ? 2.5 ?? cm/m^2 ??2.6 ? ---- LV ID/bsa, ES, MM ? 1.6 ?? cm/m^2 ??1.8 ? ---- LV fx shortening, ? 37 ?% ? 33 ? 29 - 43 ? 0.5 MM LV mid-wall fx ?18 ?% ? 17 ? ---- shortening, MM LV PW thickness, ?1.01 ??cm ?1.05 ? 0.73 - 1.27 ?? 0.1 ED, MM IVS/LV PW ratio, ?1.02 ?0.94 ? 0.71 - 1.42 ?? -0.3 ED, MM LV relative wall ?0.38 ?0.38 ? ---- thickness, ED, MM LV end-diastolic ?138 ? ? ml ?147 ? ---- volume, Teichholz MM LV end-systolic ? 47 ?ml ?57 ? ---- volume, Teichholz MM LV ejection ? 66 ?% ? 61 ? ---- fraction, Teichholz MM LV end-diastolic ?64 ?ml/m^2 ??70 ? ---- volume/bsa, Teichholz MM LV end-systolic ? 22 ?ml/m^2 ??27 ? ---- volume/bsa, Teichholz MM LV wall mass, MM ?208 ? ? g ? 218 ?144 - 347 ? -0.3 LV wall mass/bsa, ? 96 ?g/m^2 ?? 104 ? ---- MM LV mass/height, MM ?1.13 ? ?g/cm ?1.20 ? ---- LV mass/height^2.7, ? 40.16 g /m^2.7 43.05 ? ---- MM LV e', lateral ?20.3 ??cm/sec ?? 13.17 - 25.04 0.4 LV E/e', lateral ?6 ? 2 - 8 ? 0.4 LV a', lateral ?6.85 ??cm/sec ?? 2.45 - 9.01 ?? 0.7 LV e'/a', lateral, ?2.96 ? 1.23 - 6.09 ?? -0.6 TDI LV e', medial ? 15.3 ??cm/sec ?? 9.53 - 18.08 ??0.7 LV E/e', medial ? 8 ? 4 - 10 ?0.4 LV a', medial ? (H) ? 9.03 ? ?cm/sec ?? 2.74 - 8.54 ?? 2.3 LV e'/a', medial ?1.69 ? 1.21 - 4.02 ?? -1.3 LV e', average ?17.8 ??cm/sec ?? ---- LV E/e', average ?7 ? 3 - 9 ? 0.5 Ventricular septum ?Value ? 01/14/2017 Reference ? Z IVS thickness, ED, ?1.03 ? ?cm ?0.99 ? 0.74 - 1.40 ?? -0.2 MM Aortic valve ?Shima ue ? 01/14/2017 Reference ? Z Aortic annulus ?2.16 ??cm ?2.05 ? 1.90 - 2.68 ?? -0.6 diameter, S Aorta ? Value ? 01/14/2017 Reference ? Z Aortic root ID ?2.73 ??cm ? 2.43 - 3.74 ?? -1.1 Aortic root ID, ? 2.36 ??cm ?2.28 ? 2.03 - 3.03 ?? -0.7 STJ, S Ascending aorta ID, ? 2.53 ?? cm ?2.33 ? 2.19 - 3.36 ?? -0.8 A-P Mitral valve ?Shima ue ? 01/14/2017 Reference ? Z Mitral E-wave peak ?1.17 ? ?m/sec ?? 0.59 - 1.29 ?? 1.3 velocity Mitral A-wave peak ?0.53 ? ?m/sec ?? 0.21 - 0.68 ?? 0.7 velocity Mitral peak ? 5 ? mm Hg ?? ---- gradient, D Mitral E/A ratio, ? 2.22 ? 1.09 - 3.51 ?? -0.1 peak Legend: (L) ??and ??(H) ??aimee values outside sp ecified reference range. I have personally reviewed the images an d have reviewed and edited the reported findings. Electronically signed by Augustine Snyder MD 01/13/2018 14:49 Procedure Note Augustine Snyder MD - 01/13/2018 Pediatric Cardiology [address] [place] [address] Date of study: 01/13/2018 Transthoracic Echocardiogram Report M-mode, complete 2D, complete spectral D oppler, and color Doppler *STUDY CONCLUSIONS* Impressions: Normal cardiac anatomy and performance, no significant change from prior study. Summary: - History of AML s/p adriamycin therapy. - Normal cardiac anatomy. - No significant valvar regurgitation. - No intracardiac shunts visualized. - Normal left ventricular size, wall thi ckness, and systolic function. - Left ventricular diastolic function es timate within normal limits based on mitral inflow and tissue doppl er parameters. - Qualitatively normal right ventricular size and systolic function. - No intracardiac masses and/or lines vi sualized. - Overall no significant change when com pared to prior study (01/14/2017). *PATIENT PRESENTATION* Age: [age]yr Height: 184cm (72.4in ) S/D Pressure: 120 / 58 Weight: 91kg (200.2lb ) BSA: 2.17m^2 Location: Echocardiography Laboratory Facility: [facility] Assistant Professor Of Communication: Shaunna Demarco RN Attending: Dudley Rene MD Referring: Bernard Newman MD Ordering: Dudley Rene MD *PROCEDURE DATA* Procedure information: Pertinent images and digital data are archived for permanent storage and are available for subsequent review. Study status: Routine. Transthoracic echocardi ography. M-mode, complete 2D, complete spectral Doppler, and color Dop pler. Transthoracic echocardiography was performed. Images w ere obtained using a [employer] Epiq 1 cardiac ultrasound machine. Blood pressu re: 120/58 Height percentile: 93.9. Weight percentile: 98. *INDICATIONS AND HISTORY* Indications: C92.01 AML. C92.01 AML. S/p chemo. C92.01 Acute myeloblastic leukemia in remission. *CARDIAC ANATOMY* ANATOMIC RELATIONSHIPS Normal atrial situs. Concordant atrioven tricular alignment. Ventricular d-loop. Concordant ventriculoarterial co nnection. Normally related great arteries. VEINS AND ATRIA Atrial septum: No evidence for a signifi cant atrial septal defect; limited subxiphoid windows. Left atrium: The atrium is normal in siz e. Right atrium: The atrium is normal in si ze. Systemic veins: Inferior vena cava: The vessel is normal in size. The vessel course is normal. Superior vena cava: The vessel is normal in size. The vessel course is normal. Pulmonary veins: Visualization of the pu lmonary venous anatomy is incomplete, but a significant abnormalit y is unlikely. A-V CANAL Tricuspid valve: The valve is [...] shows no obstruction. Systolic function is satisfactory. The tricuspid jet envelope definition is inadequate for estimation of right ventricular systolic pressure. There are no indirect findings (abnormal right ventricular vol ume or geometry, altered pulmonary flow velocity profile, or left omalley septal displacement) which would suggest moderate or severe pulmona ry hypertension. Ventricular septum: Thickness is normal. Septal motion [...] the normal range. The re is no regurgitation. Coronaries: Coronary arteries are not ev aluated in the study. GREAT ARTERIES Aorta: Normal unobstructed left-sided ao rtic arch. Aortic root: The aortic root is not dilated. Systemic-pulmonary shunts: No evidence f or a patent ductus arteriosus. PERICARDIUM There is no significant pericardial effu emily. *MEASUREMENT TABLES* Left ventricle Value 01/14/2017 Referen ce Z LV end-diastolic 152 ml 165 -- ---- volume, 3D LV end-systolic 39 ml 50 ---- volume, 3D LV ejection 75 % 70 ---- fraction, 3D Stroke volume, 3D 113 ml 115 --- ---- LV end-diastolic 70 ml/m^2 79 --------- ---- ---- volume/bsa, 3D LV end-systolic 18 ml/m^2 24 --- ---- volume/bsa, 3D Stroke volume/bsa, 52.1 ml/m^2 54.8 --- ---- 3D LV wall mass, 3D 208 g 218 - ---- LV wall mass/bsa, 96 g/m^2 104 -------- ----- ---- 3D LV mass/height, 3D 1.13 g/cm 1.19 ----- -------- ---- LV mass/height^2.7, 40.09 g/m^2.7 42.96 ---- 3D LV area, ED, PSAX 24.00 cm^2 ---- PM LV area, ES, PSAX 10.90 cm^2 ---- PM LV fx area change, 55 % ---- --------- ---- PSAX PM LV epicardial area, 36.70 cm^2 -------- -- ---- ED, PSAX PM LV ID, major axis, 10.10 cm 7.53 - 10.33 1.6 ED, A4C LV ID, major axis, 7.79 cm 6 .03 - 8.65 0.7 ES, A4C LV ID/bsa, major 4.7 cm/m^2 ---- axis, ED, A4C LV ID/bsa, major 3.6 cm/m^2 ---- axis, ES, A4C LV apex cone 11.10 cm ------ ------- ---- length, ED, A4C LV end-diastolic 202 ml 134 - 235 0.7 volume, A/L LV end-systolic 71 ml 55 - 1 05 -0.4 volume, A/L LV ejection 0.65 0.55 - 0.72 0.4 fraction, A/L LV end-diastolic 93 ml/m^2 - ---- volume/bsa, A/L LV end-systolic 33 ml/m^2 -- ---- volume/bsa, A/L LV ID, ED, MM 5.34 cm 5.49 4.60 - 6.21 -0.2 LV ID, ES, MM 3.38 cm 3.68 2.72 - 4.30 -0.3 LV ID/bsa, ED, MM 2.5 cm/m^2 2.6 ------ ------- ---- LV ID/bsa, ES, MM 1.6 cm/m^2 1.8 ------ ------- ---- LV fx shortening, 37 % 33 29 - 43 0.5 MM LV mid-wall fx 18 % 17 -- -- shortening, MM LV PW thickness, 1.01 cm 1.05 0.73 - 1. 27 0.1 ED, MM IVS/LV PW ratio, 1.02 0.94 0.71 - 1.42 -0.3 ED, MM LV relative wall 0.38 0.38 - ---- thickness, ED, MM LV end-diastolic 138 ml 147 -- ---- volume, Teichholz MM LV end-systolic 47 ml 57 ---- volume, Teichholz MM LV ejection 66 % 61 ---- fraction, Teichholz MM LV end-diastolic 64 ml/m^2 70 --------- ---- ---- volume/bsa, Teichholz MM LV end-systolic 22 ml/m^2 27 --- ---- volume/bsa, Teichholz MM LV wall mass, MM 208 g 218 144 - 347 -0 .3 LV wall mass/bsa, 96 g/m^2 104 -------- ----- ---- MM LV mass/height, MM 1.13 g/cm 1.20 ----- -------- ---- LV mass/height^2.7, 40.16 g/m^2.7 43.05 ---- MM LV e', lateral 20.3 cm/sec 1 3.17 - 25.04 0.4 LV E/e', lateral 6 2 - 8 0.4 LV a', lateral 6.85 cm/sec 2 .45 - 9.01 0.7 LV e'/a', lateral, 2.96 1.23 - 6.09 -0.6 TDI LV e', medial 15.3 cm/sec 9. 53 - 18.08 0.7 LV E/e', medial 8 4 - 10 0.4 LV a', medial (H) 9.03 cm/sec --------- - 2.74 - 8.54 2.3 LV e'/a', medial 1.69 1.21 - 4.02 -1.3 LV e', average 17.8 cm/sec - ---- LV E/e', average 7 3 - 9 0.5 Ventricular septum Value 01/14/2017 Ref erence Z IVS thickness, ED, 1.03 cm 0.99 0.74 - 1.40 -0.2 MM Aortic valve Value 01/14/2017 Reference Z Aortic annulus 2.16 cm 2.05 1.90 - 2.68 -0.6 diameter, S Aorta Value 01/14/2017 Reference Z Aortic root ID 2.73 cm 2.43 - 3.74 -1.1 Aortic root ID, 2.36 cm 2.28 2.03 - 3.0 3 -0.7 STJ, S Ascending aorta ID, 2.53 cm 2.33 2.19 - 3.36 -0.8 A-P Mitral valve Value 01/14/2017 Reference Z Mitral E-wave peak 1.17 m/sec --------- - 0.59 - 1.29 1.3 velocity Mitral A-wave peak 0.53 m/sec --------- - 0.21 - 0.68 0.7 velocity Mitral peak 5 mm Hg -------- ----- ---- gradient, D Mitral E/A ratio, 2.22 1.09 - 3.51 -0.1 peak Legend: (L) and (H) aimee values outside specifie d reference range. I have personally reviewed the images an d have reviewed and edited the reported findings. Electronically signed by Augustine Snyder MD 01/13/2018 14:49 Performing Organization Address City/State/ZIP Code Phon e Number [facility] documented in this encounter Visit Diagnoses Diagnosis Acute myeloid leukemia in remission (HCC -CMS) (HCC) - Primary Acute myeloid leukemia in remission documented in this encounter Care Teams Leather Flesher Relationship Specialty Start Date End Date Bernard Newman MD PCP - General 10/21/13 [place] [address] Sully Baldwin NP Nurse Practitioner 09/05/[address] [place] [phone] documented as of this encounter
--- OUTSIDE RECORDS SUMMARY | 2022-05-10 08:28 | XMS_ITS | Encounter Summary ---
:[address] [facility] Address [address] [place] [address] Care Team Providers Name Role Phone Sully Baldwin FOAM GUN OPERATOR Unavailable Bernard Newman MD Primary Care Provider [phone] Reason for Visit Reason Onset Date Comments Appointment Related 12/05/2016 Encounter Details Date Type Department Care Team Description 12/05/2016 [facility]phone [facility] Related Hospital Pediatric [address] [facility] H[facility] [phone] [place] [address] [place], [place] [id number] [phone] Social History Tobacco Use Types Packs/Day Years Used Date Never Smoker Smokeless Tobacco: Never Used Sex Assigned at Date Recorded Not on file documented as of this encounter Miscellaneous Notes Telephone Encounter - Taty Louis - 12/05/2016 1352 EST Tried reaching mom in November regarding late effects clinic. Left another message about setting up appointment in December. documented in this encounter Plan of Treatment Upcoming Encounters Date Type Specialty Care Team Description 12/18/2022 Ancillary Procedure Cardiology 12/18/2022 Office Visit Cardiology Bg Kelsey MD 111 [facility], [facility], Level 1 [place], [place] [address] (Wo rk) documented as of this encounter Visit Diagnoses Not on filedocumented in this encounter Care Teams Document Advisor Relationship Specialty Start Date End Date Bernard Newman MD PCP - General 10/21/[address] [place] [address] [place] [address] Sully Baldwin FOAM GUN OPERATOR Nurse Practitioner 09/05/[address] [place] [phone] documented as of this encounter
--- OUTSIDE RECORDS SUMMARY | 2022-05-10 08:28 | XMS_ITS | Encounter Summary ---
:2002 Author Organization [facility] Address [address] [place] [address] Care Team Providers Name Role Phone Sully Baldwin ACID PATROLLER Unavailable Bernard Newman MD Primary Care Provider [phone] Reason for Visit Reason Comments Cardiac Testing Encounter Details Date Type Department Care Team Description 12/12/2015 Procedure visit [facility] Children's Unknown, Emory horton MD Acute myeloblastic leukemia in remission ([facility]) (Primary Dx); [facility] Pediatric Lexy Payan, JUAQUIN [address] [place] [address] Personal history of antineoplastic chemo therapy Cardiology - [address] [address] Social History Tobacco Use Types Packs/Day Years Used Date Never Smoker Smokeless Tobacco: Never Used Sex Assigned at Date Recorded Not on file documented as of this encounter Plan of Treatment Upcoming Encounters Date Type Specialty Care Team Description 12/18/2022 Ancillary Procedure Cardiology 12/18/2022 Office Visit Cardiology Bg Kelsey MD 111 [facility], [facility], Level 1 [place] [address] (Wo rk) documented as of this encounter Procedures Procedure Name Priority Date/Time Associated Diagnosis Comme nts EKG 12-LEAD Routine 12/12/2015 9:25 EST Acute myeloblastic Re sults for this leukemia in remission proced ure are in ([facility]) the results Personal history of section. antineoplastic chemotherapy documented in this encounter Results EKG 12-LEAD (12/12/2015 9:25 EST) Specimen Narrative [facility] EKG - 12/12/2015 13:0 9 EST ? [facility] ? Test Date: ?2015-12-12 Pat Name: ? DIANA ROSS ? Department: ?? [id number] ? Room: ? Gender: ? M ?Nut Roaster: ?? RDB : ?2000 ? Requested By: LAUREN Woo Order Number: [id number] ? Reading MD: ?? ALY FLORES MD ? Measurements Intervals ?Gonzales ? Rate: ? 66 ? P: ?65 VA: ? 158 ?QRS: ?73 QRSD: ? 86 ? T: ?52 QT: ? 383 ? QTc: ?402 ? Interpretive Statements ..PEDIATRIC ECG INTERPRETATION Normal sinus rhythm Normal ECG, including ventricular forces and intervals. Compared to ECG of 05/06/2014 09:06:56, no significant changes. I reviewed the tracing and have either a greed or edited the findings in this report. Electronically Signed On 13:09:29 EST by ALY FLORES MD. Procedure Note Aly Flores MD - 12/12/2015 [facility] Test Date: 2015-12-12 Pat Name: DIANA ROSS Department: [address] Room: Gender: Nut Roaster: RDB : 2000 Requested By: LAUREN Woo Order Number: [id number] Jesse MD: Maryjo FLORES MD Measurements Intervals Gonzales Rate: 66 P: 65 VA: 158 QRS: 73 QRSD: 86 T: 52 QT: 383 QTc: 402 Interpretive Statements ..PEDIATRIC ECG INTERPRETATION Normal sinus rhythm Normal ECG, including ventricular forces and intervals. Compared to ECG of 05/06/2014 09:06:56, no significant changes. I reviewed the tracing and have either a greed or edited the findings in this report. Electronically Signed On 13:09:29 EST by ALY FLORES MD. Performing Organization Address City/State/ZIP Code Phon e Number [facility] EKG documented in this encounter Visit Diagnoses Diagnosis Acute myeloblastic leukemia in remission (HCC-CMS) (HCC) - Primary Acute myeloid leukemia in remission Personal history of antineoplastic chemo therapy documented in this encounter Care Teams Carton Stenciler Relationship Specialty Start Date End Date Bernard Newman MD PCP - General 10/21/[place] [address] Sully Baldwin NP Nurse Practitioner 09/05/[address] [place] [phone] documented as of this encounter
--- OUTSIDE RECORDS SUMMARY | 2022-05-10 08:28 | XMS_ITS | Encounter Summary ---
:[address] [facility] Address [address] [place] [address] Care Team Providers Name Role Phone Sully Baldwin UI SOFTWARE ENGINEER Unavailable Bernard Newman MD Primary Care Provider [phone] Reason for Referral Cardiology (Routine) - Closed Specialty Diagnoses / Procedures Referred By Contact Refer red To Contact Cardiology / Diagnoses 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n ([facility] ([facility]) History of chemotherapy Dudley Rene MD Ep4 Pedi Cardiology Pediatric Cardiology Procedures ECHOCARDIOGRAM [place] ECHO HEART XTHORACIC,COMPLETE W DOPPLER [address] [phone] Referral ID Status Reason Start Date Expiration Date Visits Requ ested Visits Authorized [id number] Closed 12/05/2016 1 1 Reason for Visit Reason Onset Date Comments Surveillance 12/05/2016 Encounter Details Date Type Department Care Team Description 12/05/2016 Orders Only [facility] Pat Farris, JUAQUIN AML (acute myeloid leukemia) in [facility] ([facility]) (Primary Dx); Hospital Pediatric [address] [place] [address] History of chemotherapy Hematology [place] [address] Oncology - [facility] [place] [address] [place] [address] Social History Tobacco Use Types Packs/Day Years Used Date Never Smoker Smokeless Tobacco: Never Used Sex Assigned at Date Recorded Not on file documented as of this encounter Plan of Treatment Upcoming Encounters Date Type Specialty Care Team Description 12/18/2022 Ancillary Procedure Cardiology 12/18/2022 Office Visit Cardiology Bg Kelsey MD 111 [facility], [facility], Level 1 [place], [place] [address] (Wo rk) documented as of this encounter Procedures Procedure Name Priority Date/Time Associated Diagnosis Comme nts ECHOCARDIOGRAM Routine 01/14/2017 12:03 EST AML (acute myeloid Results for this leukemia) in remission proce dure are in ([facility]) the results History of section. chemotherapy documented in this encounter Results ECHOCARDIOGRAM (01/14/2017 12:03 EST) Specimen Narrative [facility] - 01/14/2017 14:54 EST Pediatric Cardiology [address] [place] [address] Date of study: 01/14/2017 Transthoracic Echocardiogram Report M-mode, complete 2D, complete spectral D oppler, and color Doppler *STUDY CONCLUSIONS* Summary: - Normal cardiac anatomy and biventricul ar systolic performance. - Normal LV wall mass and size. - Trivial tricuspid and mitral regurgita tion. - Overall LV diastolic function likely w ithin normal limits based on MV ??inflow and tissue doppler flow patter n. - S/p adriamycin for AML. *PATIENT PRESENTATION* [age]: ?16.7yr Height: ? 182.5cm (71.9in ) S/D Pressure: 121 / 64 Weight: ? 86kg (189.2lb ) BSA: ?2.1m^2 Location: ? Echocardiography Laborat or Facility: ? [facility] [place]ist: ??Shaunna Demarco Attending: ?Dudley Rene Referring: ?Bernard Newman Ordering: ? Dudley Rene Test start time: ??Test start time: 11:0 0 AM. Test stop time: ??Test stop time: 11:29 AM. *PROCEDURE DATA* Procedure information: ??Pertinent image s and digital data are archived for permanent storage and are available for subsequent review. ??Study status: ??Routine. Transthoracic echocar diography. ??M-mode, complete 2D, complete spectral Doppler, and color Dop pler. Transthoracic echocardiography was performed. Images w ere obtained using a [employer] Epiq 1 cardiac ultrasound machine. ??Blood pres sure: ? 121/64 ?Height percentile: 96.9. ?Weight percentile : 98.3. *INDICATIONS AND HISTORY* Indications: ?? C92.01 AML. ??S/p chemo. *CARDIAC ANATOMY* ANATOMIC RELATIONSHIPS Normal atrial situs. Concordant atrioven tricular alignment. Ventricular d-loop. Concordant ventriculoarterial co nnection. Normally related great arteries. VEINS AND ATRIA Atrial septum: ??The septum is intact. Left atrium: ??The atrium is normal in s ize. Receives the pulmonary veins. Right atrium: ??The atrium is normal in size. The right superior vena cava and coronary sinus drain normally i nto the right atrium. The inferior vena cava also drains normally into the right atrium. Systemic veins: Inferior vena cava: The vessel is normal in size. The vessel course is normal. Superior vena cava: The vessel is normal in size. The vessel course is normal. A-V CANAL Tricuspid valve: ?? The valve is structu rally normal. ?Transvalvular velocity is within the normal range. The re is no evidence for stenosis. There is trivial regurgitation with peak jet 23mmHg. Mitral valve: ?? The valve is structural ly normal. ?Transvalvular velocity is within the normal range. The re is no evidence for stenosis. There is trivial regurgitation. Abnormal MV E/A ratio and flow profile, but normal E'/A' and E/e' ratio and flow pattern. No obvious prolonged A wave reversal in the pulmonary venous do ppler pattern. VENTRICLES Right ventricle: ??The cavity size is no rmal. Wall thickness is normal. The outflow tract shows no obstruction. Systolic function is satisfactory. Ventricular septum: ?? The septum is int act. Left ventricle: ??The cavity size is nor mal. Wall thickness is normal. The outflow tract shows no obstruction. Systolic function is satisfactory. Wall motion is normal; the re are no regional wall motion abnormalities. CONOTRUNCUS Aortic valve: ?? The valve is [...] pericardial effu emily. *MEASUREMENT TABLES* Left ventricle ?V arye ? 12/12/2015 Reference ?? Z LV end-diastolic ?16 5 ?? ml ? ---- volume, 3D LV end-systolic ? 50 ?ml ? ---- volume, 3D LV ejection fraction, ? 70 ?% ? ---- 3D Stroke volume, 3D ? 115 ?? ml ? ---- LV end-diastolic ?79 ?ml/m^2 ?? ---- volume/bsa, 3D LV end-systolic ? 24 ?ml/m^2 ?? ---- volume/bsa, 3D Stroke volume/bsa, 3D ? 54.8 ??ml/m^2 ?? ---- LV wall mass, 3D ?21 8 ?? g ? ---- LV wall mass/bsa, 3D ?104 ?? g/m^2 ?? ---- LV mass/height, 3D ?1.1 9 ??g/cm ? ---- LV mass/height^2.7, ? 42.9 6 g/m^2.7 ---- 3D LV ID, ED, MM ? 5 .49 ??cm ?5.68 ? 4.54 - 6.12 0.4 LV ID, ES, MM ? 3 .68 ??cm ?3.79 ? 2.69 - 4.23 0.6 LV ID/bsa, ED, MM ? 2.6 ?? cm/m^2 ??2.9 ? ---- LV ID/bsa, ES, MM ? 1.8 ?? cm/m^2 ??1.9 ? ---- LV fx shortening, MM ?33 ?% ? 33 ? 29 - 43 ? -0.7 LV mid-wall fx ?1 7 ?% ? 19 ? ---- shortening, MM LV PW thickness, ED, ?1.05 ??cm ?0.79 ? 0.72 - 1.25 0.5 MM IVS/LV PW ratio, ED, ?0.94 ?1.13 ? 0.71 - 1.42 -0.7 MM LV relative wall ?0. 38 ?0.3 ? ---- thickness, ED, MM LV end-diastolic ?14 7 ?? ml ? ---- volume, Teichholz MM LV end-systolic ? 57 ?ml ? ---- volume, Teichholz MM LV ejection fraction, ? 61 ?% ? ---- Teichholz MM LV end-diastolic ?70 ?ml/m^2 ?? ---- volume/bsa, Teichholz MM LV end-systolic ? 27 ?ml/m^2 ?? ---- volume/bsa, Teichholz MM LV wall mass, MM ?21 8 ?? g ? 180 ?138 - 328 ?? 0.1 LV wall mass/bsa, MM ?104 ?? g/m^2 ?? 91 ? ---- LV mass/height, MM ?1.2 0 ??g/cm ?1.00 ? ---- LV mass/height^2.7, ? 43.0 5 g/m^2.7 37.28 ? ---- MM Ventricular septum ?Shima ue ? 12/12/2015 Reference ?? Z IVS thickness, ED, MM ? 0.99 ??cm ?0.89 ? 0.73 - 1.37 -0.4 Aortic valve ? Value ? 12/12/2015 Reference ?? Z Aortic annulus ?2 .05 ??cm ? 1.87 - 2.63 -1.0 diameter, S Aorta ? Value ? 12/12/2015 Reference ?? Z Aortic root ID, S ? 2.5 2 ??cm ? 2.39 - 3.67 -1.6 Aortic root ID, STJ, ?2.28 ??cm ? 2.00 - 2.98 -0.8 S Ascending aorta ID, ? 2.33 ??cm ?2.21 ? 2.15 - 3.30 -1.4 A-P Legend: (L) ??and ??(H) ??aimee values outside sp ecified reference range. I have personally reviewed the images an d have reviewed and edited the reported findings. Electronically signed by Augustine Snyder 01/14/2017 14:54 Procedure Note Augustine Snyder MD - 01/14/2017 Pediatric Cardiology [address] [place] [address] Date of study: 01/14/2017 Transthoracic Echocardiogram Report M-mode, complete 2D, complete spectral D oppler, and color Doppler *STUDY CONCLUSIONS* Summary: - Normal cardiac anatomy and biventricul ar systolic performance. - Normal LV wall mass and size. - Trivial tricuspid and mitral regurgita tion. - Overall LV diastolic function likely w ithin normal limits based on MV inflow and tissue doppler flow pattern. - S/p adriamycin for AML. *PATIENT PRESENTATION* Age: [age]yr Height: 182.5cm (71.9in ) S/D Pressure: 121 / 64 Weight: 86kg (189.2lb ) BSA: 2.1m^2 Location: Echocardiography Laboratory Facility: [facility] [place] Pedodontist: Shaunna Demarco Attending: Dudley Rene Referring: Bernard Newman Ordering: Dudley Rene Test start time: Test start time: 11:00 AM. Test stop time: Test stop time: 11:29 AM . *PROCEDURE DATA* Procedure information: Pertinent images and digital data are archived for permanent storage and are available for subsequent review. Study status: Routine. Transthoracic echocardi ography. M-mode, complete 2D, complete spectral Doppler, and color Dop pler. Transthoracic echocardiography was performed. Images w ere obtained using a [employer] Epiq 1 cardiac ultrasound machine. Blood pressu re: 121/64 Height percentile: 96.9. Weight percentile: 98. 3. *INDICATIONS AND HISTORY* Indications: C92.01 AML. S/p chemo. *CARDIAC ANATOMY* ANATOMIC RELATIONSHIPS Normal atrial situs. Concordant atrioven tricular alignment. Ventricular d-loop. Concordant ventriculoarterial co nnection. Normally related great arteries. VEINS AND ATRIA Atrial septum: The septum is intact. Left atrium: The atrium is normal in siz e. Receives the pulmonary veins. Right atrium: The atrium is normal in si ze. The right superior vena cava and coronary sinus drain normally i nto the right atrium. The inferior vena cava also drains normally into the right atrium. Systemic veins: Inferior vena cava: The vessel is normal in size. The vessel course is normal. Superior vena cava: The vessel is normal in size. The vessel course is normal. A-V CANAL Tricuspid valve: The valve is structural ly normal. Transvalvular velocity is within the normal range. The re is no evidence for stenosis. There is trivial regurgitation with peak jet 23mmHg. Mitral valve: The valve is structurally normal. Transvalvular velocity is within the normal range. The re is no evidence for stenosis. There is trivial regurgitation. Abnormal MV E/A ratio and flow profile, but normal E'/A' and E/e' ratio and flow pattern. No obvious prolonged A wave reversal in the pulmonary venous do ppler pattern. VENTRICLES Right ventricle: The cavity size is norm al. Wall thickness is normal. The outflow tract shows no obstruction. Systolic function is satisfactory. Ventricular septum: The septum is intact . Left ventricle: The cavity size is keyona l. Wall thickness is normal. The outflow tract shows no obstruction. Systolic function is satisfactory. Wall motion is normal; the re are no regional wall motion abnormalities. CONOTRUNCUS Aortic valve: The valve is structurally [...] effu emily. *MEASUREMENT TABLES* Left ventricle Value 12/12/2015 Referbrenda Vaz LV end-diastolic 165 ml ---- ------- ---- volume, 3D LV end-systolic 50 ml ------ ----- ---- volume, 3D LV ejection fraction, 70 % - ---- 3D Stroke volume, 3D 115 ml --- -------- ---- LV end-diastolic 79 ml/m^2 - ---- volume/bsa, 3D LV end-systolic 24 ml/m^2 -- --------- ---- volume/bsa, 3D Stroke volume/bsa, 3D 54.8 ml/m^2 ----- ----- ---- LV wall mass, 3D 218 g ----- ------ ---- LV wall mass/bsa, 3D 104 g/m^2 -------- -- ---- LV mass/height, 3D 1.19 g/cm ---- LV mass/height^2.7, 42.96 g/m^2.7 ----- ----- ---- 3D LV ID, ED, MM 5.49 cm 5.68 4.54 - 6.12 0.4 LV ID, ES, MM 3.68 cm 3.79 2.69 - 4.23 0.6 LV ID/bsa, ED, MM 2.6 cm/m^2 2.9 ------ ----- ---- LV ID/bsa, ES, MM 1.8 cm/m^2 1.9 ------ ----- ---- LV fx shortening, MM 33 % 33 29 - 43 -0 .7 LV mid-wall fx 17 % 19 ---- shortening, MM LV PW thickness, ED, 1.05 cm 0.79 0.72 - 1.25 0.5 MM IVS/LV PW ratio, ED, 0.94 1.13 0.71 - 1 .42 -0.7 MM LV relative wall 0.38 0.3 - --- thickness, ED, MM LV end-diastolic 147 ml ---- ------- ---- volume, Teichholz MM LV end-systolic 57 ml ------ ----- ---- volume, Teichholz MM LV ejection fraction, 61 % - ---- Teichholz MM LV end-diastolic 70 ml/m^2 - ---- volume/bsa, Teichholz MM LV end-systolic 27 ml/m^2 -- --------- ---- volume/bsa, Teichholz MM LV wall mass, MM 218 g 180 138 - 328 0. 1 LV wall mass/bsa, MM 104 g/m^2 91 ----- ------ ---- LV mass/height, MM 1.20 g/cm 1.00 ----- ------ ---- LV mass/height^2.7, 43.05 g/m^2.7 37.28 ---- MM Ventricular septum Value 12/12/2015 Ref tatianna Vaz IVS thickness, ED, MM 0.99 cm 0.89 0.73 - 1.37 -0.4 Aortic valve Value 12/12/2015 Reference Z Aortic annulus 2.05 cm 1.87 - 2.63 -1.0 diameter, S Aorta Value 12/12/2015 Reference Z Aortic root ID, S 2.52 cm 2. 39 - 3.67 -1.6 Aortic root ID, STJ, 2.28 cm 2.00 - 2.98 -0.8 S Ascending aorta ID, 2.33 cm 2.21 2.15 - 3.30 -1.4 A-P Legend: (L) and (H) aimee values outside specifie d reference range. I have personally reviewed the images an d have reviewed and edited the reported findings. Electronically signed by Augustine Snyder 01/14/2017 14:54 Performing Organization Address City/State/ZIP Code Phon e Number [facility] documented in this encounter Visit Diagnoses Diagnosis AML (acute myeloid leukemia) in [facility] ([facility]) (HCC) - Primary Acute myeloid leukemia in remission History of chemotherapy Personal history of antineoplastic chemo therapy documented in this encounter Care Teams Wardrobe Assistant Relationship Specialty Start Date End Date Bernard Newman MD PCP - General 10/21/[address] [place] [address] Sully Baldwin NP Nurse Practitioner 09/05/[address] [place] [phone] documented as of this encounter
--- OUTSIDE RECORDS SUMMARY | 2022-05-10 08:28 | XMS_ITS | Encounter Summary ---
:2000 Author Organization [facility] Address [address] [place] [address] Care Team Providers Name Role Phone Sully Baldwin GRAIN ELEVATOR OPERATOR Unavailable Bernard Newman MD Primary Care Provider [phone] Reason for Visit Reason Comments Cardiac Testing Encounter Details Date Type Department Care Team Description 01/14/2017 Procedure visit [facility], Emory horton MD History of Hospital Pediatric Flyer, Mabel Sibley MD [address] [place] [address] chemotherapy Cardiology - Lexy Bunn, JUAQUIN [address] [place] [address] (Primary Dx) [facility] [address], [place] [id number] Social History Tobacco Use Types Packs/Day Years [...] decisions? documented as of this encounter Discharge Diagnoses Diagnosis C92.01 Acute myeloblastic leukemia, in r emission-C92.01[ICD-10-CM] Z92.21 Personal history of antineoplasti c chemotherapy-Z92.21[ICD-10-CM] documented in this encounter Discharge Disposition Disposition Code Departure Means Destination Auto Discharge documented in this encounter Plan of Treatment Upcoming Encounters Date Type Specialty Care Team Description 12/18/2022 Ancillary Procedure Cardiology 12/18/2022 Office Visit Cardiology Bg Kelsey MD 111 [facility], [facility], Level [address] [place], [place] [address] (Wo rk) documented as of this encounter Procedures Procedure Name Priority Date/Time Associated Diagnosis Comme nts EKG 12-LEAD Routine 01/14/2017 10:53 EST History of Results for this chemotherapy procedure are i n the results section. documented in this encounter Results EKG 12-LEAD (01/14/2017 10:53 EST) Specimen Narrative [facility] EKG - 01/14/2017 15:0 0 EST ? [facility] ? Test Date: ?2017-01-14 Pat Name: ? DIANA ROSS ? Department: ?? [id number] ? Room: ? Gender: ? M ?Rug[employer] Footballer: ?? [id number] : ?2000 ? Requested By: DANIEL MEJIAS LAB Order Number: [id number] ? Reading : ?? MABEL CARLOS MD ? Measurements Intervals ?[place] ? Rate: ? 67 ? P: ?74 CO: ? 157 ?QRS: ?77 QRSD: ? 85 ? T: ?62 QT: ? 389 ? QTc: ?413 ? Interpretive Statements ..PEDIATRIC ECG INTERPRETATION SINUS RHYTHM Normal axis Nonspecific intraventricular conduction delay Compared to ECG 12/12/2015 09:25:06 No significant changes I reviewed the tracing and have either a greed or edited the findings in this report. Electronically Signed On 7 15:00:41 EST by MABEL CARLOS MD. Procedure Note Mabel Carlos MD - 01/14/2017 [facility] Test Date: 2017-01-14 Pat Name: DIANA ROSS Department: 4 [facility] Room: Gender: M [employer] Footballer: [id number] : 2000 Requested By: DANIEL FITZPATRICK LAB Order Number: [id number] Reading MD: Hanh CARLOS MD Measurements Intervals [place] Rate: 67 P: 74 CO: 157 QRS: 77 QRSD: 85 T: 62 QT: 389 QTc: 413 Interpretive Statements ..PEDIATRIC ECG INTERPRETATION SINUS RHYTHM Normal axis Nonspecific intraventricular conduction delay Compared to ECG 12/12/2015 09:25:06 No significant changes I reviewed the tracing and have either a greed or edited the findings in this report. Electronically Signed On 15:00:41 EST by MABEL CARLOS MD. Performing Organization Address City/State/ZIP Code Phon e Number [facility] EKG documented in this encounter Visit Diagnoses Diagnosis History of chemotherapy - Primary Personal history of antineoplastic chemo therapy documented in this encounter Care Teams Digital Marketing Analyst Relationship Specialty Start Date End Date Bernard Newman MD PCP - General 10/21/[place] [address] Sully Baldwin NP Nurse Practitioner 09/05/[address] [place] [phone] documented as of this encounter
--- OUTSIDE RECORDS SUMMARY | 2022-05-10 08:28 | XMS_ITS | Encounter Summary ---
:2000 Author Organization [facility] Address [address] [place] [address] Care Team Providers Name Role Phone Sully Baldwin INSURANCE COMMISSIONER Unavailable Bernard Newman MD Primary Care Provider [phone] Encounter Details Date Type Department Care Team Description 01/13/2018 Results Only [facility] Dudley Rene MD Pediatric Hematology & [address] [place] [address] 111 [facility] [phone] [place], [place] [id number] [phone] Social History Tobacco Use Types Packs/Day Years [...] Office Visit Cardiology Bg Kelsey MD 111 [facility], [facility] Level 1 [place], [place] [address] (Wo rk) documented as of this encounter Procedures Procedure Name Priority Date/Time Associated Diagnosis Comme nts SLIDE REQUEST Routine 01/13/2018 11:21 EST Result s for this procedure are i n the results section . documented in this encounter Results SLIDE REQUEST (01/13/2018 11:21 EST) Pathologist Sig nature Note A smear is filed in [facility] the Hematology lab LABORATORY SERVICES Specimen Blood Performing Organization Address City/State/ZIP Code Phon e Number [facility] [address] [place] [address] SERVICES documented in this encounter Visit Diagnoses Not on filedocumented in this encounter Care Teams Log Scaler Relationship Specialty Start Date End Date Bernard Newman MD PCP - General 10/21/[address] [place] [address] [address] [place] [place], [place] [address] Sully Baldwin, INSURANCE COMMISSIONER Nurse Practitioner 09/05/10 [address] [place] [address] documented as of this encounter
--- OUTSIDE RECORDS SUMMARY | 2022-05-10 08:28 | XMS_ITS | Encounter Summary ---
:2000 Author Organization [facility] Address [address] [place] [address] Care Team Providers Name Role Phone Sully Baldwin IMPORT CLERK Unavailable Bernard Newman MD Primary Care Provider [phone] Encounter Details Date Type Department Care Team Description 01/14/2017 Results Only [facility] Jackeline Baldwin NP Pediatric Hematology & [address] [place] [address] Oncology [place], [place] 111 [facility] [phone] [place], [place] [phone] Social History Tobacco Use Types Packs/Day Years [...] Kelsey MD 111 [facility], [facility] 1 [place], [place] [address] (Wo rk) documented as of this encounter Procedures Procedure Name Priority Date/Time Associated Diagnosis Comme nts SLIDE REQUEST Routine 01/14/2017 10:41 EST Result s for this procedure are i n the results section . documented in this encounter Results SLIDE REQUEST (01/14/2017 10:41 EST) Pathologist Sig nature Note A smear is filed in [facility] the Hematology lab LABORATORY SERVICES Specimen Blood Performing Organization Address City/State/ZIP Code Phon e Number [facility] [address] [place] [address] SERVICES documented in this encounter Visit Diagnoses Not on filedocumented in this encounter Care Teams Reptile Farmer Relationship Specialty Start Date End Date Bernard Newman MD PCP - General 10/21/13 [place] [address] Sully Baldwin, IMPORT CLERK Nurse Practitioner 09/05/10 [address] [place] [phone] documented as of this encounter
--- OUTSIDE RECORDS SUMMARY | 2022-05-10 08:28 | XMS_ITS | Encounter Summary ---
:2000 Author Organization [facility] Address [address] [place] [address] Care Team Providers Name Role Phone Sully Baldwin TRAVEL FREIGHT AND PASSENGER AGENT Unavailable Bernard Newman MD Primary Care Provider [phone] Reason for Visit Reason Onset Date Comments Advice Only 06/15/2018 Encounter Details Date Type Department Care Team Description 06/15/2018 Telephone [facility] Advice Only Pediatric Hematology & [address] [place] [phone] [place] [address] [place] [address] [phone] Social History Tobacco Use Types Packs/Day Years [...] this encounter Miscellaneous Notes Telephone Encounter - Pat North RN - 06/16/2018 1037 EDT Returned call to mother to discuss. She reports that Jaswinder's PCP has ordered a head MRI to be done in [facility], they do use gadolinium contrast. Mom reports that he has had some abnormal hormonal labs and is being referred to [facility] (appt with Dr. Arndt 09/30/18 @ 10:00). Discussed no concerns with using gadolinium contrast from an oncological viewpoint. She will keep this office updated. PAT NORTH, RN elephone Encounter - Teodora Landry - 06/15/2018 0917 EDT Joan would like to talk about the MRI that he has coming up and the type of contrast that they are going to use. documented in this encounter Plan of Treatment Upcoming Encounters Date Type Specialty Care Team Description 12/18/2022 Ancillary Procedure Cardiology 12/18/2022 Office Visit Cardiology Bg Kelsey MD [address] [place] [address], Level [address] [place], [place] [address] (Wo rk) documented as of this encounter Visit Diagnoses Not on filedocumented in this encounter Care Teams Talking Books Library Clerk Relationship Specialty Start Date End Date Bernard Newman MD PCP - General 10/21/[address] [place] [address] [place] [address] Sully Baldwin NP Nurse Practitioner 09/05/[address] [place] [phone] documented as of this encounter
--- OUTSIDE RECORDS SUMMARY | 2022-05-10 08:28 | XMS_ITS | Encounter Summary ---
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); [facility] Pediatric [address] [place] [address] AML ([place] myeloid leukemia) in remission (CMS-HCC); Hematology [address] Compulsive behavior; Oncology - [place], [place] Osteochond prachi of tibia, unspecified laterality; [place] [id number] History of chemotherapy; [address] [place] [address] [place] [address] Social History Tobacco Use Types Packs/Day Years Used Date Never Smoker Smokeless Tobacco: Never Used Sex Assigned at Date Recorded Not on file documented as of this encounter Last Filed Vital Signs Vital Sign Reading Time Taken Comments Blood Pressure 121/64 01/14/2017 1003 EST Pulse 66 01/14/2017 1003 EST Temperature 36.2 ??C (97.2 ??F) 01/14/2017 1003 EST Respiratory Rate - - Oxygen Saturation - - Inhaled Oxygen Concentration - - Weight 86 kg (189 lb 9.5 oz) 01/14/2017 1003 EST Height 182.5 cm (5' 11.85) 01/14/2017 1003 EST Body Mass Index 25.82 01/14/2017 1003 EST documented in this encounter Functional Status [...] making decisions? documented as of this encounter Patient Instructions Patient InstructionsSully Baldwin NP - 01/14/2017 10:00 EST Call Pediatric Hematology/Oncology 24 hours a day at or ext [phone] forthe following concerns: ?? Fever - any over 101.5 degrees F or repeatedly over 100 degrees F. ?? Pain uncontrolled with current pain regimen. ?? Mouth sores. ?? Constipation. ?? Bruising/bleeding (low platelets). ?? Tiredness (anemia). ?? Any other questions or concerns. Please remember to bring your medications with you to your next visit Please do not take any vitamins or supplements without consulting with your healthcare provider. ?? Vitamins can interact with chemotherapy drugs. ?? Supplements can interact with platelets and may lead to increased bleeding. documented in this encounter Progress Notes Sully Baldwin NP - 01/14/2017 1000 EST Pediatric Hem/Onc Follow up Visit Chief Complaint Patient presents with ??? Follow-up AML, off therapy 8 years HISTORIAN: Patient and both parents. HISTORY OF PRESENT ILLNESS: Jaswinder Ross is an 16 y.o. 8 m.o. 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 He was enrolled on the [facility] protocol AAML 0531 and was randomized to the experimental gemtuzumab arm. His therapy included 492 mg/m2 of anthracyclines (doxorubicin equivalent). He tolerated therapy very well with the expected complications of myelosuppression. He completed therapy in 10/2008 and remains in his first remission. INTERVAL HISTORY: Since his last clinic visit on 12/12/2015, Jaswinder has hod no surgeries, hospitalizations or serious illnesses. In the fall, he experienced high fever, body aches and pain with flu likesymptoms. He was treated with a 2 week course of doxycycline with resolution of symptoms. He is scheduled to have a vision examination today. He has a good energy and activity level with a healthy appetite. He plays soccer, basketball, snowboards and likes to play video games. He has a good group of friends, which his parents approve. He is in the 8th grade and has a [address] with accommodations for extra time on tests, decreased workload, and special assistance in math and language. He comp leted neurocognitive testing last spring. According to his parents, he is doing well in school this year. He plans to get his driving permit this summer when he turns 17. Denies bruising, bleeding or petechiae or fever other than previously described. He continues to have obsessive compulsive behaviors. His parents have no new concerns. He is here for follow up for AML, 8 years off therapy. Past Medical History: Diagnosis Date ??? 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 WBC 49,000, TREASURY ACCOUNTANT negative, testicles negative. 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 Completed therapy 10/21/2008. ??? Dry skin dermatitis 11/2010 ??? 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 Other complication of labor and delivery, antepartum condition or complication gestational diabetes Past Surgical History: Procedure Laterality Date ??? CENTRAL VENOUS CATHETER 05/2008 Double lumen broviac catheter removed 12/2008 ??? OR CREATE EARDRUM OPENING,GEN ANESTH No current outpatient prescriptions on file. No current facility-administered medications for this visit. Allergies Allergen Reactions ??? Ambisome [Amphotericin B Liposome] hypotension ??? Voriconazole Rash FAMILY HISTORY: History reviewed. No pertinent family history. Family history of first degree relatives are reviewed and documented in [facility]. No new significant medical problems were noted in first degree relatives. SOCIAL HISTORY: Lives with his parried parents and brother in [place], [place]. He is in the 8th grade with a [address] Review Of Systems: General: Febrile illness in the fall - see HPI. Otherwise no fever, night sweats, weight loss or malaise. No light-headedness/dizziness. HEENT: No headaches. Reports eye lids sometimes feel heavy. No hearing complaints. No mouth sores or throat pain. Respiratory: No cough or shortness of breath. Cardiovascular: No palpitations, chest pain, orthopnea. No edema. GI: No nausea, vomiting, constipation, diarrhea. : No dysuria Heme: No bleeding, bruising, petechiae. Lymph: No lymphadenopathy Skin: No rashes, lesions, jaundice. Musculoskeletal: General body aches/pain with febrile illness this fall - resolved. No myalgias, arthralgias. Neuro: No weakness, paresthesias. Endocrine: No polyuria/polydipsia. Performance status: 100 Pain: None Physical Exam: Visit Vitals ??? BP 121/64 (BP Cuff Location: Left arm, Patient Position: Sitting, BP Cuff Sizes: Adult, large) ??? Pulse 66 ??? Temp 36.2 ??C (97.2 ??F) (Tympanic) ??? Ht 182.5 cm (71.85) ??? Wt (!) 86 kg (189 lb 9.5 oz) ??? BMI 25.82 kg/m2 General: Well developed, well nourished, no acute distress. Poor eye contact. Talkative and interactive throughout visit. Eyes: PERRLA, EOMI, sclera anicteric. Ears: Tympanic [...] tender, + BS, No HSM Male : Deferred. Lymph: No cervical, supraclavicular, axillary lymphadenopathy. Skin: No rashes, lesions, ulcers. Neurologic: Cranial nerves 2-12 intact. Deep tendon reflexes 2+ bilaterally. Cerebellar good finger to nose. Strength 5/5 upper & lower extremities. Musculo: Gait coordinated and smooth. No misalignment, defects, deformities. Gomez forward bend testnegative. LABORATORY DATA: Results for orders placed or performed in visit on 01/14/17 HEMAGRAM AND DIFFERENTIAL Result Value Ref Range WBC 6.96 4.5 - 13.0 K/cmm RBC 5.19 4.50 - 5.30 M/cmm Hemoglobin 15.0 13.0 - 16.0 gm/dl HCT 43.5 37.0 - 49.0 % MCV 84 78 - 98 fl MCH 28.9 pg MCHC 34.5 gm/dl RDW-CV 13.0 % RDW-SD 39.3 fl PLT 213 156 - 312 K/cmm MPV 10.0 fl Neutrophils 47.9 % Lymphocytes 39.9 % Monocytes 9.8 % Eosinophils 1.6 % Basophils 0.4 % Immature Grans 0.4 % ABS Neutrophils 3.33 K/cmm ABS Lymphs 2.78 K/cmm ABS Monocytes 0.68 K/cmm ABS Eosinophils 0.11 K/cmm ABS Basophils 0.03 K/cmm ABS Immature Grans 0.03 K/cmm Type of Diff: Automated COMPREHENSIVE METABOLIC PANEL (CMP) Result Value Ref Range Potassium 4.2 3.3 - 4.6 mEq/L Sodium 142 136 - 145 mEq/L Chloride 102 96 - 110 mEq/L CO2 31 22 - 32 mEq/L Total Alkaline Phosphatase 127 116 - 483 U/L Bilirubin, Total 0.8 <1.0 mg/dl AST 22 15 - 40 U/L ALT 24 <46 U/L Albumin 5.0 3.7 - 5.6 g/dl Total Protein 7.8 6.3 - 8.6 g/dl Creatinine 0.78 0.46 - 0.81 mg/dl GFR, Calculated Age <18 ml/min/1.73m2 BUN 18 8 - 21 mg/dl Calcium 10.0 9.2 - 10.7 mg/dl Calculated Calcium 9.2 9.2 - 10.7 mg/dl Glucose, Serum 87 70 - 100 mg/dl Fasting? Unknown IMAGING STUDIES REVIEWED: 01/14/2017 Echocardiogram: Summary: - Normal cardiac anatomy and biventricular systolic performance. - Normal LV wall mass and size. - Trivial tricuspid and mitral regurgitation. - Overall LV diastolic function likely within normal limits based on MV ?inflow and tissue doppler flow pattern. 01/14/2017 EKG: SINUS RHYTHM Normal axis Nonspecific intraventricular conduction delay Compared to ECG 12/12/2015 09:25:06 No significant changes IMPRESSION: Jaswinder is an 16 y.o. 8 m.o. boy with a history of AML, treated per [id number] protocol with intensive chemotherapy including gemtuzumab in CR1. He is currently 8 years off therapy in his first remission. PLAN: AML Treated per [id number]. Completed Off therapy since 10/21/2008 Therapy consisted of: Cytarabine IT, cytarabine (low dose IV), cytarabine (high dose IV), daunorubicin (300 mg/m2), mitoxantrone (48 mg/m2) total anthracycline dose = 492 mg/m2), asparaginase, etoposide and gemtuzumab. Remains in first complete remission. No signs or symptoms suggestive of disease recurrence. Return in 1 year for history, physical examinations, labs and echocardiogram/EKG. Obsessive compulsive behavior Poor eye contact Continues to have obsessive compulsive behaviors. None noted today. Osteochondroma of right tibia Seen by Dr Claros 12/2010. 2 cm mass right tibial osteochondroma diagnosed by Dr Claros with no treatment necessary. Health Maintenance Followed by PCP for health maintenance. Late Effects Potential late effects of therapy include, [...] at time of administration, anechocardiogram is recommended yearly. Normal EKG and echocardiogram today. Next due 01/2018. Bone Health: Reviewed importance of calcium, vitamin D and exercise in maintaining bone health. Jaswinder reports consuming 3-4 servings of mild products daily. Neurocognitive effects: At risks for neurocognitive effects and with learning issues in school. Hasdifficulties with math and language (particularly sentence structure). Neurocognitive testing complete spring [address] providing for accommodations (additional time for testing,decreased assignments, additional assistance with math and language). Liver, kidney toxicity: At risk for liver and kidney toxicity secondary to high dose chemotherapy. CMP today WNL. Secondary malignancy: There is the small risk for secondary leukemias or myelodysplasia secondary to etoposide exposure. CBCD today WNL. Obtain yearly for 10 years off therapy. Fertility: Discussed possible effect of chemotherapy on fertility. Usual recommendation is not to do blood testing at this time. DISPOSITION: Return to clinic in 1 year for history, physical examination, labs and echocardiogram/EKG. Sully PEREZ Pediatric Heme/Oncology documented in this encounter Plan of Treatment Upcoming Encounters Date Type Specialty Care Team Description 12/18/2022 Ancillary Procedure Cardiology 12/18/2022 Office Visit Cardiology Bg Kelsey MD [address] [facility], [address] [place], [place] [address] (Wo rk) documented as of this encounter Procedures Procedure Name Priority Date/Time Associated Comments Diagnosis ECG REPORT - SCANNED 01/16/2017 10:30 EST COMPLETE BLOOD COUNT Routine 01/14/2017 10:41 Acute myeloid Re sults for this AND DIFFERENTIAL EST leukemia in procedure a re in remission ([facility]) the resu lts section. COMPREHENSIVE Routine 01/14/2017 10:41 Acute myeloid Results f or this METABOLIC PANEL (CMP) EST leukemia in proced ure are in remission ([facility]) the resu lts section. documented in this encounter Results COMPREHENSIVE METABOLIC PANEL (CMP) (01/14/2017 10:41 EST) Potassium 4.2 3.3 - 4.6 [facility] mEq/L [facility] Sodium 142 136 - 145 [facility] mEq/L [facility] Chloride 102 96 - 110 [facility] mEq/L [facility] CO2 31Comment: Note new 22 - 32 [facility] reference range mEq/L [facility] 08/27/16 SERVICES Total Alkaline 127 116 - 483 [facility] Phosphatase U/L [facility] Bilirubin, Total 0.8 <1.0 mg/dl [facility] AST 22 15 - 40 U/L [facility] ALT 24 <46 U/L [facility] Albumin 5.0 3.7 - 5.6 [facility] g/dl [facility] Total Protein 7.8 6.3 - 8.6 [facility] g/dl [facility] Creatinine 0.78 0.46 - 0.81 [facility] mg/dl [facility] GFR, Calculated Age <18 ml/min/1.73m [facility] 2 [facility] BUN 18 8 - 21 mg/dl [facility] Calcium 10.0 9.2 - 10.7 [facility] mg/dl [facility] Calculated Calcium 9.2 9.2 - 10.7 [facility] Comment: mg/dl [facility] Note new formula for calculation SERVICES in use 08/14/2016 Glucose, Serum 87 70 - 100 [facility] mg/dl [facility] Fasting? Unknown [facility] Specimen Blood specimen (specimen) - Blood Performing Organization Address City/State/ZIP Code Phon e Number [facility] [address] [place] [address] SERVICES HEMAGRAM AND DIFFERENTIAL (01/14/2017 10:41 EST) Pathologist Sig nature WBC 6.96 4.5 - 13.0 [facility]/counts include 234 beds at the [facility] LABORATORY SERVICES RBC 5.19 4.50 - 5.30 [facility]/counts include 234 beds at the [facility] LABORATORY SERVICES Hemoglobin 15.0 13.0 - 16.0 [facility] gm/dl [facility] HCT 43.5 37.0 - 49.0 % [facility] MCV 84 78 - 98 fl [facility] MCH 28.9 pg [facility] MCHC 34.5 gm/dl [facility] RDW-CV 13.0 % [facility] RDW-SD 39.3 fl [facility] PLT 213 156 - 312 K/[facility]ORATORY SERVICES MPV 10.0 fl [facility] Neutrophils 47.9 % [facility] Lymphocytes 39.9 % [facility] Monocytes 9.8 % [facility] Eosinophils 1.6 % [facility] Basophils 0.4 % [facility] Immature Grans 0.4 % [facility] ABS Neutrophils 3.33 K/[facility]ORATORY SERVICES ABS Lymphs 2.78 K/cmm [facility] ABS Monocytes 0.68 K/cmm [facility] ABS Eosinophils 0.11 K/cmm [facility] ABS Basophils 0.03 K/cmm [facility] ABS Immature Grans 0.03 K/cmm [facility] Type of Diff: Automated [facility] Specimen Blood specimen (specimen) - Blood Performing Organization Address City/State/ZIP Code Phon e Number [facility] [address] [place] [address] SERVICES documented in this encounter Visit Diagnoses Diagnosis Acute myeloid leukemia in remission (HCC -CMS) (HCC) - Primary Acute myeloid leukemia in remission 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 (HCC-CMS) (HCC) Acute myeloid leukemia in remission Compulsive behavior Obsessive-compulsive disorders Osteochondroma of tibia, unspecified lat erality History of chemotherapy Personal history of antineoplastic chemo therapy Learning difficulty Unspecified delay in development documented in this encounter Orders Procedures Count Last Ordered Date First Ordered Date ECG REPORT - SCANNED 1 01/16/2017 documented in this encounter Care Teams Plug Machine Operator Relationship Specialty Start Date End Date Bernard Newman MD PCP - General 10/21/13 [place] [address] Sully Baldwin NP Nurse Practitioner 09/05/10 [address] [place] [id number] documented as of this encounter
--- OUTSIDE RECORDS SUMMARY | 2022-05-10 08:28 | XMS_ITS | Encounter Summary ---
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) Personal history of antineoplastic chemotherapy Dudley Rene MD Ep4 Pedi Cardiology Procedures ECHOCARDIOGRAM VA ECHO HEART XTHORACIC,COMPLETE W DOPPLER VA ECHO HEART XTHORACIC,COMPLETE, W/O DOPPLER [address] [place] [address] Phone: [phone] [facility] [phone] Referral ID Status Reason Start Date Expiration Date Visits V isits Requested Authorized [id number] Specialty 10/11/2014 1 1 Report Received Reason for Visit Reason Onset Date Comments Surveillance 09/28/2014 Encounter Details Date Type Department Care Team Description 09/28/2014 Orders Only [facility] Dudley Rene MD Acute myeloid leukemia in remission (CMS -HCC) (Primary Dx); Hospital Pediatric [address] [place] [address] history of antineoplastic chemotherapy Hematology & [facility] - [facility] [id number] [place] [address] [place] [address] [phone] Social History Tobacco Use Types Packs/Day Years Used Date Never Smoker Smokeless Tobacco: Never Used Sex Assigned at Date Recorded Not on file documented as of this encounter Plan of Treatment Upcoming Encounters Date Type Specialty Care Team Description 12/18/2022 Ancillary Procedure Cardiology 12/18/2022 Office Visit Cardiology gB Kelsey MD [address] [facility], [facility], Level [address] [place], [place] [address] (Wo rk) documented as of this encounter Procedures Procedure Name Priority Date/Time Associated Diagnosis Comme nts ECHOCARDIOGRAM Routine 10/11/2014 11:00 Acute myeloid leukemia Results for this EST in remission (CM S-HCC) procedure are [facility] documented in this encounter Results ECHOCARDIOGRAM (10/11/2014 11:00 EST) Specimen Narrative [facility] - 10/11/2014 18:05 EST Patient Name: DIANA ROSS Chart Number: [id number] Site Location: Date of Appt: Saturday, October 11, 2014 , 11:00 AM Pediatric Echocardiogram Report Demographics and Visit Data: : 2000. ??Age: 14y/5m/7d. ??Sex: M. ??BSA (m 2): 1.82. ?? Height (cm): 170.2. ??Weight (kg): 69.3. ??BMI (kg/m 2): 23.92. ?? [facility] ??Height Centile: 98.73. ?? Weight Centile: 99.52. ??Person requesti ng test: DUDLEY RENE MD. ?? Sausage Tier: Bee Hendrix. ??Reason f or test: .-Acute myeloid leukemia in hcyqfwhbr-CQY-7-CM V87.41-Pe rsonal history of antineoplastic chemot. ?? Procedure Description: ECHOCARDIOGRAM. ? ? Summary: Leukemia, s/p adriamycin therapy. No structural abnormality identified. Normal Doppler study. Normal left ventricular size, wall thick ness and systolic function. Normal right ventricular size with quali tatively good right ventricular systolic function. Compared to the prior study, there has b een no significant change. Complete 2-dimensional study performed, with pulse/continuous wave Doppler samplings, and color flow Doppler jailene brown reviewed. Findings: ?? Veins and Atria: ?? >> Normal Left Atrium >> Normal Right Atrium >> Normal Systemic Veins Normal venous flow noted in the superior vena cava. ?? >> Intact Atrial Septum ?? A-V Canal: ?? >> Tricuspid regurgitation, trivial By tricuspid regurgitation jet, the jaime mated right ventricular pressure is approximately 24 mmHg plus right atri al pressure. ?? >> Normal Tricuspid Valve Trivial tricuspid regurgitation. ?? >> Normal Mitral Valve No mitral regurgitation. ? Ventricles: ?? >> Normal Left Ventricle Normal left ventricular size, wall thick ness and systolic function. ?? >> Intact Ventricular Septum >> Right ventricular dysfunction global, ruled out >> Right ventricular dilation or enlarge ment, ruled out ?? Conotruncus: ?? >> Normal Pulmonary Valve Normal Doppler study of the pulmonary va lve and branch pulmonary arteries. ?? >> Normal Aortic Valve No valvar aortic stenosis or aortic regu rgitation. ? Great Arteries: ?? >> Left aortic arch Without obstruction. ?? >> Patent ductus arteriosus, ruled out >> Normal Aorta (adjacent to aortic valve). ?? >> Normal Proximal Coronary Arteries ?? Pericardium: ?? (No abnormalities seen) ?? Other: ?? >> S/p adriamycin therapy >> Leukemia (acute myeloid leukemia in remission). ? Measures: ?? Systemic Arterial Function: ?? Name ?Value ?Units ?Z-Score ?Min ?Max ?? Systolic BP ? 1 22 ?mmHg ? 1.49 ? 82.48 ??127.44 ?? Diastolic BP ?6 2 ? mmHg ? 0.86 ? 35.31 ??72.46 ?? Pulse Pressure ?60 .00 ?mmHg ? Mean BP ? 82.0 ? mmHg ? 0.48 ? 57.23 ??97.05 ? 2D: ?? Name ?Value ?Units ?? LV Diastolic Volume Index ? 85.82 ?ml/m 2 ? (Bullet) ?? M-Mode: ?? Name ?Value ?Units ?Z-Score ?Min ?Max ?? LV Diastolic Septal ? 0.70 ? cm ? -1.81 ?0.68 ?? 1.26 ?? Thickness M-Mode LV Diastolic ? 5.52 ? cm ? 1.3 ?4.31 ?? 5.77 ?? Dimension LV Diastolic Wall ? 0.80 ? cm ? -0.88 ?0.67 ?? 1.15 ?? Thickness M-Mode LV Systolic ?3.36 ? cm ? 0.28 ? 2.56 ?? 3.96 ?? Dimension LV Fractional Shortening ?39.13 ?% ?1.09 ? 29.32 ??42.52 ?? M-Mode LV Mass / Height 2 ? 51.26 ?g/m 2 ? Relative Wall Thickness ? 0.27 ? LV Systolic Function: ?? Name ?Value ?Units ?Z-Score ?Min ?Max ?? LV Diastolic Volume ? 156.1 9 ?? ml ? 0.42 ? 104.76 189.48 ?? (Bullet) LV Systolic Volume ?65.3 6 ?ml ? 0.55 ? 37.85 ??88.98 ?? (Bullet) LV Ejection Fraction ?0.58 ?-1.06 ?0.54 ?? 0.72 ?? (Bullet) 2D LV Mass ? 160.83 ?? gm ? 1.51 ? 93.71 ??170.73 ?? 2D LV Volume Index ?85.8 2 ? 2D LV Mass Index ?88. 37 ?g/m 2 ? Endocardial FS ?39 .13 ?% ?1.09 ? 29.32 ??42.52 ?? FS Vs Stress ?3 9.13 ?% ? Cardiac Geometry: ?? Name ?Value ?Units ?Z-Score ?Min ?Max ?? M-Mode LV Mass ?14 8.49 ?? gm ? -0.61 ?113.43 247.62 ?? M-Mode LV Mass Index ?81.59 ?g/m 2 ? LV Diastolic Long [place] ?9.68 ? cm ? Epicardial Diameter LV Diastolic Epicardial ? 39.30 ?cm 2 ? Cross-Sectional Area LV Systolic Long [place] ? 7.13 ? cm ? Diameter LV Systolic ? 1 1.00 ?cm 2 ? Cross-sectional Area LV Diastolic Long [place] ?8.33 ? cm ? 0.58 ? 6.58 ?? 9.29 ?? Diameter LV Diastolic ?2 2.50 ?cm 2 ? Cross-sectional Area LV Midwall Diastolic ?6.32 ? cm ? 1.02 ? 5.23 ?? 6.67 ?? Dimension M-Mode LV Mass / Height ? 87.24 ?g/m ? M-Mode LV Mass / ?35. 33 ?g/m ? 19.4 ?? 38.6 ?? Height 2.7 ?? Aorta: ?? Name ?Value ?Units ?Z-Score ?Min ?Max ?? Ao Annulus Diameter ? 1.83 ? cm ? -1.41 ?1.72 ?? 2.51 ?? Ao Root Diameter ?2.3 5 ? cm ? -1.4 ? 2.17 ?? 3.4 ?? AV Area (using Diameter) ?2.63 ? cm 2 ? Sinotubular Junction ?2.23 ? cm ? -0.63 ?1.85 ?? 2.96 ?? Diameter Ascending Ao Diameter ? 2.35 ? cm ? -0.62 ?1.94 ?? 3.14 ? Analysis Aortic Valve Doppler: ?? Name ?Value ?Units ?? AV Area (using Diameter) ?2.63 ? cm 2 ? [place]'s Name: CHAVEZ ADRIAN MD Date/time of reading: Oct 11 2014 - 6:03:46 PM Report created at 6:05:19 PM on Saturday, October 11, 2014 Report Number: Note:Study interpreted at [facility] unless otherwise noted Procedure Note 10/11/2014 Patient Name: DIAAN ROSS Chart Number: [id number] Site Location: Date of Appt: Saturday, October 11, 2014 , 11:00 AM Pediatric Echocardiogram Report Demographics and Visit Data: : 2000. Age: 14y/5m/7d. Sex: M. BSA (m 2): 1.82. Height (cm): 170.2. Weight (kg): 69.3. B AL (kg/m 2): 23.92. Patient location: [facility]. Height Centile: 98.73. Weight Centile: 99.52. Person requesting test: DUDLEY RENE MD Sausage Tier: Bee Hendrix. Reason for test: 205.01-Acute myeloid leukemia in khfhxzzoz-VID-3-CM V87.41-Pe rsonal history of antineoplastic chemot. Procedure Description: ECHOCARDIOGRAM. Summary: Leukemia, s/p adriamycin therapy. No structural abnormality identified. Normal Doppler study. Normal left ventricular size, wall thick ness and systolic function. Normal right ventricular size with quali tatively good right ventricular systolic function. Compared to the prior study, there has b een no significant change. Complete 2-dimensional study performed, with pulse/continuous wave Doppler samplings, and color flow Doppler imagin g reviewed. Findings: Veins and Atria: >> Normal Left Atrium >> Normal Right Atrium >> Normal Systemic Veins Normal venous flow noted in the superior vena cava. >> Intact Atrial Septum A-V Canal: >> Tricuspid regurgitation, trivial By tricuspid regurgitation jet, the jaime mated right ventricular pressure is approximately 24 mmHg plus right atri al pressure. >> Normal Tricuspid Valve Trivial tricuspid regurgitation. >> Normal Mitral Valve No mitral regurgitation. Ventricles: >> Normal Left Ventricle Normal left ventricular size, wall thick ness and systolic function. >> Intact Ventricular Septum >> Right ventricular dysfunction global, ruled out >> Right ventricular dilation or enlarge ment, ruled out Conotruncus: >> Normal Pulmonary Valve Normal Doppler study of the pulmonary va lve and branch pulmonary arteries. >> Normal Aortic Valve No valvar aortic stenosis or aortic regu rgitation. Great Arteries: >> Left aortic arch Without obstruction. >> Patent ductus arteriosus, ruled out >> Normal Aorta (adjacent to aortic valve). >> Normal Proximal Coronary Arteries Pericardium: (No abnormalities seen) Other: >> S/p adriamycin therapy >> Leukemia (acute myeloid leukemia in remission). Measures: Systemic Arterial Function: Name Value Units Z-Score Min Max Systolic BP 122 mmHg 1.49 82.48 127.44 Diastolic BP 62 mmHg 0.86 35.31 72.46 Pulse Pressure 60.00 mmHg Mean BP 82.0 mmHg 0.48 57.23 97.05 2D: Name Value Units LV Diastolic Volume Index 85.82 ml/m 2 (Bullet) M-Mode: Name Value Units Z-Score Min Max LV Diastolic Septal 0.70 cm -1.81 0.68 1 .26 Thickness M-Mode LV Diastolic 5.52 cm 1.3 4.31 5.7 7 Dimension LV Diastolic Wall 0.80 cm -0.88 0.67 1.1 5 Thickness M-Mode LV Systolic 3.36 cm 0.28 2.56 3.9 6 Dimension LV Fractional Shortening 39.13 % 1.09 29 .32 42.52 M-Mode LV Mass / Height 2 51.26 g/m 2 Relative Wall Thickness 0.27 LV Systolic Function: Name Value Units Z-Score Min Max LV Diastolic Volume 156.19 ml 0.42 104.7 6 189.48 (Bullet) LV Systolic Volume 65.36 ml 0.55 37.85 88.98 (Bullet) LV Ejection Fraction 0.58 -1.06 0.54 0.7 2 (Bullet) 2D LV Mass 160.83 gm 1.51 93.71 170.73 2D LV Volume Index 85.82 2D LV Mass Index 88.37 g/m 2 Endocardial FS 39.13 % 1.09 29.32 42.52 FS Vs Stress 39.13 % Cardiac Geometry: Name Value Units Z-Score Min Max M-Mode LV Mass 148.49 gm -0.61 113.43 24 7.62 M-Mode LV Mass Index 81.59 g/m 2 LV Diastolic Long Ne[place]ho 9.68 cm Epicardial Diameter LV Diastolic Epicardial 39.30 cm 2 Cross-Sectional Area LV Systolic Long [place] 7.13 cm Diameter LV Systolic 11.00 cm 2 Cross-sectional Area LV Diastolic Long [place] 8.33 cm 0.58 6.58 9.29 Diameter LV Diastolic 22.50 cm 2 Cross-sectional Area LV Midwall Diastolic 6.32 cm 1.02 5.23 6 .67 Dimension M-Mode LV Mass / Height 87.24 g/m M-Mode LV Mass / 35.33 g/m 19.4 38.6 Height 2.7 Aorta: Name Value Units Z-Score Min Max Ao Annulus Diameter 1.83 cm -1.41 1.72 2 .51 Ao Root Diameter 2.35 cm -1.4 2.17 3.4 AV Area (using Diameter) 2.63 cm 2 Sinotubular Junction 2.23 cm -0.63 1.85 2.96 Diameter Ascending Ao Diameter 2.35 cm -0.62 1.94 3.14 Analysis Aortic Valve Doppler: Name Value Units AV Area (using Diameter) 2.63 cm 2 [place]'s Name: CHAVEZ ADRIAN MD Date/time of reading: Oct 11 2014 - 6:03:46 PM Report created at 6:05:19 PM on Saturday, October 11, 2014 Report Number: Note:Study interpreted at [facility] unless otherwise noted Performing Organization Address City/State/ZIP Code Phon e Number [facility] documented in this encounter Visit Diagnoses Diagnosis Acute myeloid leukemia in remission (HCC -CMS) (HCC) - Primary Acute myeloid leukemia in remission Personal history of antineoplastic chemo therapy documented in this encounter Care Teams Crop Quantitative Geneticist Relationship Specialty Start Date End Date Bernard Newman MD PCP - General 10/21/[place] [address] Sully Baldwin ORE DRESSING ENGINEER Nurse Practitioner 09/05/[address] [place] [phone] documented as of this encounter
--- OUTSIDE RECORDS SUMMARY | 2022-05-10 08:28 | XMS_ITS | Encounter Summary ---
:2000 Author Organization [facility] Address [address] [place] [address] Care Team Providers Name Role Phone Sully Baldwin RAILROAD CROSSING PROTECTION MAINTAINER Unavailable Bernard Newman MD Primary Care Provider [phone] Reason for Visit Reason Onset Date Comments Other 02/05/2018 Encounter Details Date Type Department Care Team Description 02/05/2018 Telephone [facility] Dudley Rene MD Other Pediatric Hematology & [address] [place] [phone] [place] [address] [place] [address] [phone] Social History Tobacco Use Types Packs/Day Years [...] this encounter Miscellaneous Notes Telephone Encounter - Sadie Mccarthy - 02/05/2018 0848 EDT Jose G Askew Md is calling to speak with Dr. Rene regarding Jaswinder Ross its not urgent. [place] to just touch base documented in this encounter Plan of Treatment Upcoming Encounters Date Type Specialty Care Team Description 12/18/2022 Ancillary Procedure Cardiology 12/18/2022 Office Visit Cardiology Bg Kelsey MD [address] [facility], [facility], [address] [place], [place] [phone] (Wo rk) documented as of this encounter Visit Diagnoses Not on filedocumented in this encounter Care Teams Schedule Analyst Relationship Specialty Start Date End Date Bernard Newman MD PCP - General 10/21/13 [address] [place], [place] [address] Sully Baldwin RAILROAD CROSSING PROTECTION MAINTAINER Nurse Practitioner 09/05/10 [address] [place] [phone] documented as of this encounter
--- OUTSIDE RECORDS SUMMARY | 2022-05-10 08:28 | XMS_ITS | Encounter Summary ---
:2000 Author Organization [facility] Address [address] [place] [address] Care Team Providers Name Role Phone Randell Baldwin NP Unavailable Bernard Newman MD Primary Care Provider [phone] Reason for Referral Cardiology (Routine) - Authorized Specialty Diagnoses / Procedures Referred By Contact Refer red To Contact Diagnoses History of antineoplastic chemotherapy Acute myeloid leukemia in remission ([facility]) ([facility]) Randell Baldwin NP Procedures EKG 12-LEAD [address] [place] [address] Referral ID Status Reason Start Date Expiration Date Visits V isits Requested Authorized [id number] Authorized 12/08/2019 1 1 ardiology (Routine) - Authorized Specialty Diagnoses / Procedures Referred By Contact Refer red To Contact Pediatric Cardiology Diagnoses History of antineoplastic chemotherapy Acute myeloid leukemia in remission ([facility]) ([facility]) Randell Baldwin NP Ep4 Pedi Cardiology Procedures TRANSTHORACIC ECHO (TTE) COMPLETE [place] ECHO HEART XTHORACIC,COMPLETE W DOPPLER [id number] [place] [address] Phone: [phone] Referral ID Status Reason Start Date Expiration Date Visits V isits Requested Authorized [id number] Authorized 12/08/2019 1 1 Encounter Details Date Type Department Care Team Description 12/08/2019 Orders Only [facility] Children's Randell Baldwin, MARIE History of antineoplastic chemotherapy ( Primary Dx); Hospital Pediatric [address] [place] [address] yeloid leukemia in remission (HCC-CMS) Hematology & [facility] - [facility] [id number] [place] [address] [place] [address] [phone] Social History Tobacco Use Types Packs/Day Years [...] Office Visit Cardiology Bg Kelsey MD [address] [facility], Level [address] [place], [place] [address] (Wo rk) documented as of this encounter Results TRANSTHORACIC ECHO (TTE) COMPLETE (04/25/2020 12:35 EDT) Specimen Narrative [facility] - 04/25/2020 13:51 EDT Pediatric Cardiology [address] [place] [address] Date of study: 04/25/2020 Transthoracic Echocardiogram Report M-mode, complete 2D, complete spectral D oppler, and color Doppler *STUDY CONCLUSIONS* Impressions: ??Normal cardiac anatomy an d performance, no significant change from prior study. Summary: - History of AML s/p adriamycin therapy. - Normal cardiac anatomy and performance . ??No structural abnormality seen. - Normal left ventricular size, wall thi ckness, and systolic function. - Left ventricular diastolic function es timate within normal limits ??based on mitral inflow and tissue dop pler parameters. - Qualitatively normal right ventricular size and systolic function. - No intracardiac masses and/or lines vi sualized. - Overall no significant change when com pared to prior study (01/13/2018). *PATIENT PRESENTATION* Age: ?19yr Height: ? 183.8cm (72.4in ) S/D Pressure: 114 / 66 Weight: ? 84.1kg (185lb ) BSA: ?2.08m^2 [facility] [employer] Warehouse Assembly Worker: ??Elena Sanders Referring: ?Randell Baldwin Ordering: ? Randell Baldwin Test start time: ??12:10 PM. Test stop time: ??12:40 PM. *PROCEDURE DATA* Procedure information: ??Pertinent image s and digital data are archived for permanent storage and are available for subsequent review. ??Study status: ??Routine. Transthoracic echocar diography. ??M-mode, complete 2D, complete spectral Doppler, and color Dop pler. Transthoracic echocardiography was performed. Images w ere obtained using a [employer] Epiq 16 cardiac ultrasound machine. ??Blood p ressure: ? 114/66 ?Height percentile: 88.3. ?Weight percentile : 91.9. *INDICATIONS AND HISTORY* Indications: ?? C92.01 AML. ??C92.01 AML . ??AML. ??S/p Chemo. ??S/p chemo. 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 *CARDIAC ANATOMY* ANATOMIC RELATIONSHIPS Normal atrial situs. [...] jet the estimated right ventricular pressure is 16mm Hg plus the right atrial pressure. Ventricular [...] within the normal range. The re is trivial regurgitation. Coronaries: ??Coronary arteries are not evaluated in the study. GREAT ARTERIES Aorta: ??Unobstructed proximal aortic ar ch. Descending aortic doppler not obtained. Aortic root: The aortic root i s not dilated. Systemic-pulmonary shunts: ??No evidence for a patent ductus arteriosus. PERICARDIUM There is no significant pericardial effu emily. *MEASUREMENT TABLES* Left ventricle ? Shima ue ? 01/13/2018 Reference ?Z LV area, ED, PSAX ?26.2 0 cm^2 ?24.00 ? ---- PM LV area, ES, PSAX ?11.9 0 cm^2 ?10.90 ? ---- PM LV fx area change, ? 55 ?% ? 55 ? ---- PSAX PM LV epicardial ?42 .00 cm^2 ?36.70 ? ---- area, ED, PSAX PM LV ID, major axis, ? 9.49 ??cm ?10.10 ?7.39 - 10.11 1.1 ED, A4C LV ID, major axis, ? 8.10 ??cm ?7.79 ? 5.90 - 8.44 ??1.4 ES, A4C LV ID/bsa, major ? 4.6 ?? cm/m^2 ??4.7 ? ---- axis, ED, A4C LV ID/bsa, major ? 3.9 ?? cm/m^2 ??3.6 ? ---- axis, ES, A4C LV apex cone ? 10 .50 cm ?11.10 ? ---- length, ED, A4C LV end-diastolic ? 207 ?? ml ?202 ?126 - 223 ?1.3 volume, A/L LV end-systolic ?80 ?ml ?71 ? 51 - 98 ?0.8 volume, A/L LV ejection ?0 .61 ?0.65 ? 0.55 - 0.72 ??-0.5 fraction, A/L LV end-diastolic ? 100 ?? ml/m^2 ??93 ? ---- volume/bsa, A/L LV end-systolic ?39 ?ml/m^2 ??33 ? ---- volume/bsa, A/L LV ID, ED, MM ?5. 71 ??cm ?5.34 ? 4.53 - 6.10 ??1.0 LV ID, ES, MM ?3. 84 ??cm ?3.38 ? 2.68 - 4.21 ??1.0 LV ID/bsa, ED, MM ?2.7 ?? cm/m^2 ??2.5 ? ---- LV ID/bsa, ES, MM ?1.8 ?? cm/m^2 ??1.6 ? ---- LV fx shortening, ?33 ?% ? 37 ? 29 - 43 ?-0.7 MM LV mid-wall fx ? 19 ?% ? 18 ? ---- shortening, MM LV PW thickness, ? 0.83 ??cm ?1.01 ? 0.71 - 1.24 ??-1.1 ED, MM IVS/LV PW ratio, ? 1.02 ?1.02 ? 0.71 - 1.42 ??-0.2 ED, MM LV relative wall ? 0.29 ?0.38 ? ---- thickness, ED, MM LV wall mass, MM ? 181 ?? g ? 208 ?136 - 323 ?-0.6 LV wall mass/bsa, ?87 ?g/m^2 ?? 96 ? ---- MM LV mass/height, MM ? 0.99 ??g/cm ?1.13 ? ---- LV ? 35.08 g/m^2.7 40.16 ? ---- mass/height^2.7, MM LV e', lateral ? 20 ?cm/sec ??20.3 ? 13.29 - 25.3 0.2 LV E/e', lateral ? 5 ? 6 ?2 - 8 ?-0.4 LV a', lateral ? 5.9 8 ??cm/sec ??6.85 ? 2.42 - 9.03 ??0.2 LV e'/a', lateral, ? 3.34 ?2.96 ? 1.19 - 6.25 ??-0.3 TDI LV s', lateral ? 12. 3 ??cm/sec ?? 6.24 - 15.98 0.5 LV e', medial ?13 .7 ??cm/sec ??15.3 ? 9.54 - 18.3 ??-0.1 LV E/e', medial ?7 ? 8 ?4 - 10 ? -0.2 LV a', medial ?6. 42 ??cm/sec ??9.03 ? 2.74 - 8.53 ??0.5 LV e'/a', medial ? 2.13 ?1.69 ? 1.24 - 4.05 ??-0.7 LV s', medial ?8. 59 ??cm/sec ?? 5.92 - 10.24 0.5 LV e', average ? 16. 85 cm/sec ??17.8 ? ---- LV E/e', average ? 5 ? 7 ?3 - 9 ?-0.3 Ventricular septum ? Value ? 01/13/2018 Reference ?Z IVS thickness, ED, ? 0.85 ??cm ?1.03 ? 0.73 - 1.36 ??-1.2 MM Aortic valve ? Va lue ? 01/13/2018 Reference ?Z Aortic annulus ? 2.1 4 ??cm ?2.16 ? 1.86 - 2.62 ??-0.5 diameter, S Aorta ?Value ? 01/13/2018 Reference ?Z Aortic root ID ? 2.7 4 ??cm ?2.73 ? 2.38 - 3.65 ??-0.9 Aortic root ID, ?2.3 7 ??cm ?2.36 ? 1.99 - 2.96 ??-0.4 STJ, S Mitral valve ? Va lue ? 01/13/2018 Reference ?Z Mitral E-wave peak ? 0.9 ? ? m/sec ?? 1.17 ? 0.59 - 1.29 ??-0.2 velocity Mitral A-wave peak ? 0.42 ??m/sec ?? 0.53 ? 0.21 - 0.68 ??-0.2 velocity Mitral peak ?3 ? mm Hg ?? 5 ? ---- gradient, D Mitral E/A ratio, ?2.14 ?2.22 ? 1.11 - 3.52 ??-0.3 peak Legend: (L) ??and ??(H) ??aimee values outside sp ecified reference range. I have personally reviewed the images an d have reviewed and edited the reported findings. Electronically signed by Mabel Carlos MD 04/25/2020 13:51 Procedure Note Mabel Carlos MD - 04/25/2020 Pediatric Cardiology [address] [place] [address] Date of study: 04/25/2020 Transthoracic Echocardiogram Report M-mode, complete 2D, complete spectral D oppler, and color Doppler *STUDY CONCLUSIONS* Impressions: Normal cardiac anatomy and performance, no significant change from prior study. Summary: - History of AML s/p adriamycin therapy. - Normal cardiac anatomy and performance . No structural abnormality seen. - Normal left ventricular size, wall thi ckness, and systolic function. - Left ventricular diastolic function es timate within normal limits based on mitral inflow and tissue doppl er parameters. - Qualitatively normal right ventricular size and systolic function. - No intracardiac masses and/or lines vi sualized. - Overall no significant change when com pared to prior study (01/13/2018). *PATIENT PRESENTATION* Age: 19yr Height: 183.8cm (72.4in ) S/D Pressure: 114 / 66 Weight: 84.1kg (185lb ) BSA: 2.08m^2 Location: Echocardiography Laboratory Facility: [facility] Warehouse Assembly Worker: Elena Sanders Referring: Randell Baldwin Ordering: Randell Baldwin Test start time: 12:10 PM. Test stop time: 12:40 PM. *PROCEDURE DATA* Procedure information: Pertinent images and digital data are archived for permanent storage and are available for subsequent review. Study status: Routine. Transthoracic echocardi ography. M-mode, complete 2D, complete spectral Doppler, and color Dop pler. Transthoracic echocardiography was performed. Images w ere obtained using a [employer] Epiq 16 cardiac ultrasound machine. Blood pre ssure: 114/66 Height percentile: 88.3. Weight percentile: 91. 9. *INDICATIONS AND HISTORY* Indications: C92.01 AML. C92.01 AML. AML . S/p Chemo. S/p chemo. 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 *CARDIAC ANATOMY* ANATOMIC RELATIONSHIPS Normal atrial situs. [...] jet the estimated right ventricular pressure is 16mm Hg plus the right atrial pressure. Ventricular [...] within the normal range. The re is trivial regurgitation. Coronaries: Coronary arteries are not ev aluated in the study. GREAT ARTERIES Aorta: Unobstructed proximal aortic arch . Descending aortic doppler not obtained. Aortic root: The aortic root i s not dilated. Systemic-pulmonary shunts: No evidence f or a patent ductus arteriosus. PERICARDIUM There is no significant pericardial effu emily. *MEASUREMENT TABLES* Left ventricle Value 01/13/2018 Referen [facility] LV area, ED, PSAX 26.20 cm^2 24.00 ---- -------- ---- PM LV area, ES, PSAX 11.90 cm^2 10.90 ---- -------- ---- PM LV fx area change, 55 % 55 ---- PSAX PM LV epicardial 42.00 cm^2 36.70 -------- ---- ---- area, ED, PSAX PM LV ID, major axis, 9.49 cm 10.10 7.39 - 10.11 1.1 ED, A4C LV ID, major axis, 8.10 cm 7.79 5.90 - 8.44 1.4 ES, A4C LV ID/bsa, major 4.6 cm/m^2 4.7 ------- ----- ---- axis, ED, A4C LV ID/bsa, major 3.9 cm/m^2 3.6 ------- ----- ---- axis, ES, A4C LV apex cone 10.50 cm 11.10 - ---- length, ED, A4C LV end-diastolic 207 ml 202 126 - 223 1 .3 volume, A/L LV end-systolic 80 ml 71 51 - 98 0.8 volume, A/L LV ejection 0.61 0.65 0.55 - 0.72 -0.5 fraction, A/L LV end-diastolic 100 ml/m^2 93 -------- ---- ---- volume/bsa, A/L LV end-systolic 39 ml/m^2 33 -- ---- volume/bsa, A/L LV ID, ED, MM 5.71 cm 5.34 4.53 - 6.10 1.0 LV ID, ES, MM 3.84 cm 3.38 2.68 - 4.21 1.0 LV ID/bsa, ED, MM 2.7 cm/m^2 2.5 ------ ------ ---- LV ID/bsa, ES, MM 1.8 cm/m^2 1.6 ------ ------ ---- LV fx shortening, 33 % 37 29 - 43 -0.7 MM LV mid-wall fx 19 % 18 --- - shortening, MM LV PW thickness, 0.83 cm 1.01 0.71 - 1. 24 -1.1 ED, MM IVS/LV PW ratio, 1.02 1.02 0.71 - 1.42 -0.2 ED, MM LV relative wall 0.29 0.38 ---- thickness, ED, MM LV wall mass, MM 181 g 208 136 - 323 -0 .6 LV wall mass/bsa, 87 g/m^2 96 --------- --- ---- MM LV mass/height, MM 0.99 g/cm 1.13 ----- ------- ---- LV 35.08 g/m^2.7 40.16 --- - mass/height^2.7, MM LV e', lateral 20 cm/sec 20.3 13.29 - 2 5.3 0.2 LV E/e', lateral 5 6 2 - 8 -0.4 LV a', lateral 5.98 cm/sec 6.85 2.42 - 9.03 0.2 LV e'/a', lateral, 3.34 2.96 1.19 - 6.2 5 -0.3 TDI LV s', lateral 12.3 cm/sec 6 .24 - 15.98 0.5 LV e', medial 13.7 cm/sec 15.3 9.54 - 1 8.3 -0.1 LV E/e', medial 7 8 4 - 10 -0.2 LV a', medial 6.42 cm/sec 9.03 2.74 - 8 .53 0.5 LV e'/a', medial 2.13 1.69 1.24 - 4.05 -0.7 LV s', medial 8.59 cm/sec 5. 92 - 10.24 0.5 LV e', average 16.85 cm/sec 17.8 ------ ------ ---- LV E/e', average 5 7 3 - 9 -0.3 Ventricular septum Value 01/13/2018 Ref erence Z IVS thickness, ED, 0.85 cm 1.03 0.73 - 1.36 -1.2 MM Aortic valve Value 01/13/2018 Reference Z Aortic annulus 2.14 cm 2.16 1.86 - 2.62 -0.5 diameter, S Aorta Value 01/13/2018 Reference Z Aortic root ID 2.74 cm 2.73 2.38 - 3.65 -0.9 Aortic root ID, 2.37 cm 2.36 1.99 - 2.9 6 -0.4 STJ, S Mitral valve Value 01/13/2018 Reference Z Mitral E-wave peak 0.9 m/sec 1.17 0.59 - 1.29 -0.2 velocity Mitral A-wave peak 0.42 m/sec 0.53 0.21 - 0.68 -0.2 velocity Mitral peak 3 mm Hg 5 ---- gradient, D Mitral E/A ratio, 2.14 2.22 1.11 - 3.52 -0.3 peak Legend: (L) and (H) aimee values outside specifie d reference range. I have personally reviewed the images an d have reviewed and edited the reported findings. Electronically signed by Mabel Carlos MD 04/25/2020 13:51 Performing Organization Address City/State/ZIP Code Phon e Number [facility] EKG 12-LEAD (04/25/2020 12:11 EDT) Specimen Narrative [facility] EKG - 04/25/2020 12:4 9 EDT ? [facility] ? Test Date: ?2020-04-25 Pat Name: ? DIANA ROSS ? Department: ?? [id number] ? Room: ? Gender: ? Male ? Couturiere: ?? [id number] : ?2000 ? Requested By: PLOOF RANDELL M Order Number: [id number] ? Reading MD: ?? MABEL CARLOS MD ? Measurements Intervals ?Harold ? Rate: ? 62 ? P: ?76 IL: ? 165 ?QRS: ?79 QRSD: ? 81 ? T: ?64 QT: ? 386 ? QTc: ?392 ? Interpretive Statements SINUS RHYTHM Normal Harold Normal ECG, including ventricular forces and intervals. Compared to ECG 01/13/2018 09:52:01 No significant changes I reviewed the tracing and have either a greed or edited the findings in this report. Electronically Signed On 04-25-20 12:49:45 EDT by MABEL CARLOS MD. Procedure Note Mabel Carlos MD - 04/25/2020 [facility] Test Date: 2020-04-25 Pat Name: DIANA ROSS Department: [address] Room: Gender: Male Couturiere: [id number] : 2000 Requested By: DANIEL Viveros Order Number: [id number] Reading MD: Hanh CARLOS MD Measurements Intervals Harold Rate: 62 P: 76 IL: 165 QRS: 79 QRSD: 81 T: 64 QT: 386 QTc: 392 Interpretive Statements SINUS RHYTHM Normal Harold Normal ECG, including ventricular forces and intervals. Compared to ECG 01/13/2018 09:52:01 No significant changes I reviewed the tracing and have either a greed or edited the findings in this report. Electronically Signed On 04-25-20 12:49:45 EDT by MABEL CARLOS MD. Performing Organization Address City/State/ZIP Code Phon e Number [facility] EKG documented in this encounter Visit Diagnoses Diagnosis History of antineoplastic chemotherapy - Primary Personal history of antineoplastic chemo therapy Acute myeloid leukemia in remission (HCC -CMS) (HCC) Acute myeloid [facility] (HCC) - Primary Acute myeloid leukemia in remission History of chemotherapy Personal history of antineoplastic chemo therapy History of antineoplastic chemotherapy Personal history of antineoplastic chemo therapy Acute myeloid leukemia in remission (HCC -CMS) (HCC) Acute myeloid leukemia in remission History of antineoplastic chemotherapy Personal history of antineoplastic chemo therapy Acute myeloid leukemia in remission (HCC -CMS) (HCC) Acute myeloid leukemia in remission documented in this encounter Care Teams Revenue Officer Relationship Specialty Start Date End Date Bernard Newman MD PCP - General 10/21/[address] [place] [address] Randell Baldwin NP Nurse Practitioner 09/05/[address] [place] [phone] documented as of this encounter
--- OUTSIDE RECORDS SUMMARY | 2022-05-10 08:28 | XMS_ITS | Encounter Summary ---
:2000 Author Organization [facility] Address [address] [place] [address] Care Team Providers Name Role Phone Sully Baldwin CREATIVE INTERN Unavailable Bernard Newman MD Primary Care Provider [phone] Reason for Visit Reason Onset Date Comments Surveillance 11/08/2015 Encounter Details Date Type Department Care Team Description 11/08/2015 Orders Only [facility] Melis Francesca Dai Personal history of antineoplastic chemotherapy (Primary Dx); [facility] Pediatric MD Ken Acute myeloid leukemia in remission (CMS -HCC) Hematology & [address] [place], [place] [address] [facility] [address] [place], [place] [address] [phone] Social History Tobacco Use Types Packs/Day Years Used Date Never Smoker Smokeless Tobacco: Never Used Sex Assigned at Date Recorded Not on file documented as of this encounter Plan of Treatment Upcoming Encounters Date Type Specialty Care Team Description 12/18/2022 Ancillary Procedure Cardiology 12/18/2022 Office Visit Cardiology Bg Kelsey MD [address] [facility], Level [address] [place], [place] [address] (Wo rk) documented as of this encounter Visit Diagnoses Diagnosis Personal history of antineoplastic chemo therapy - Primary Acute myeloid leukemia in remission (HCC -CMS) (HCC) Acute myeloid leukemia in remission documented in this encounter Care Teams Slat Basket Maker Relationship Specialty Start Date End Date Bernard Newman MD PCP - General 10/21/13 [place] [address] Sully Baldwin NP Nurse Practitioner 09/05/[address] [place] [phone] documented as of this encounter
--- OUTSIDE RECORDS SUMMARY | 2022-05-10 08:28 | XMS_ITS | Encounter Summary ---
:2000 Author Organization [facility] Address [address] [place] [address] Care Team Providers Name Role Phone Sully Baldwin FLUE CLEANER Unavailable Bernard Newman MD Primary Care Provider [phone] Reason for Visit Reason Comments Follow-up AML off therapy Encounter Details Date Type Department Care Team Description 01/13/2018 Office Visit [facility] AML (acute myeloid leukemia[facility] in [facility] ([facility] ([facility]) (Primary Dx); Hospital Pediatric [address] [place] [address] [facility] brina behavior; Hematology & [address] Osteochondroma of tibia, unspecified lat erality; Oncology - [place], [place] Dry skin d ermatitis; [place] [phone] History of chemotherapy; [address] [place] [address] [place] [address] Social History Tobacco Use Types Packs/Day Years Used Date Never Smoker Smokeless Tobacco: Never Used Sex Assigned at Date Recorded Not on file documented as of this encounter Last Filed Vital Signs Vital Sign Reading Time Taken Comments Blood Pressure 120/58 01/13/2018 0959 EST Pulse 68 01/13/2018 0959 EST Temperature 36.6 ??C (97.9 ??F) 01/13/2018 0959 EST Respiratory Rate 16 01/13/2018 0959 EST Oxygen Saturation 100% 01/13/2018 0959 EST Inhaled Oxygen Concentration - - Weight 90.5 kg (199 lb 8.3 oz) 01/13/2018 0959 EST Height 184 cm (6' 0.44) 01/13/2018 0959 EST Body Mass Index 26.73 01/13/2018 0959 EST documented in this encounter Functional Status [...] as of this encounter Patient Instructions Patient InstructionsDudley Rene MD - 01/13/2018 10:30 EST Call Pediatric Hematology/Oncology 24 hours a [...] bleeding. documented in this encounter Progress Notes Dudley Rene MD - 01/13/2018 1030 EST Pediatric Hem/Onc Survivorship Follow up Visit Chief Complaint Patient presents with ??? Follow-up AML off therapy HISTORIAN: Patient, his mother, old records. Primary Care per Bernard Newman Pediatric Oncology Summary/HISTORY OF PRESENT ILLNESS: Jaswinder is an 17 y.o. 8 m.o. 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 He was enrolled on [facility]G protocol AAML 0531 and was randomized to the experimental arm containing gemtuzumab. His therapy included 492 mg/m2 of anthracyclines (doxorubicin equivalent). He tolerated therapy very well with the expected complications of myelosuppression. He completed therapy in 10/2008 and remains in his first remission. INTERVAL HISTORY: Since his last clinic visit in December,, Geronimo has generally done well without significant medical illness, surgery, trauma, or hospitalization. He has a good energy and activitylevel with a healthy appetite. His active, plays soccer, but would like to play football. He also plays basketball, snowboards and likes to play video games. He is in the 9th grade and has a [address] with accommodations for extra time on tests, decreased workload, and special assistance in math and language. He completed neurocognitive testing about 3 years ago. His long-standing obsessive compulsive symptoms are a little less. His mother voices no new concerns today. He is here for follow up for AML, 9 years off therapy. Past Medical History: Diagnosis Date ??? AML (acute myeloblastic leukemia) ([facility]) 05/13/2008 Treated per COG AAML 0531. WBC 49,000, BIOPROCESSING MANUFACTURING TECHNICIAN negative, testicles negative. 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 Completed therapy 10/21/2008. ??? Dry skin dermatitis 11/2010 ??? 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 Other complication of labor and delivery, antepartum condition or complication gestational diabetes No current outpatient prescriptions on file. No current facility-administered medications for this visit. Allergies Allergen Reactions ??? Ambisome [Amphotericin B Liposome] hypotension ??? Voriconazole Rash Family history of first degree relatives was reviewed and documented in [facility]. No other significant medical problems were noted in first degree relatives. SOCIAL HISTORY: Still lives with his parents () in [place], [place]. He is in the 9th gradewith a [address]. ROS: System Negative Positive Comments Constitutional X Eyes X ENT X Cardiovascular X Pulmonary X Gastrointestinal X Genitourinary X Musculoskeletal X Skin X Neurological X Psychiatric X long-standing OCD behaviors. Some Sx of ADHD affecting school work. Endocrine X Hematologic/Lymph X Allergic/Immunologic X Pain X Objective: Physical Exam: BP 120/58 (BP Cuff Location: Right arm, Patient Position: Sitting, BP Cuff Sizes: Adult, large) Pulse 68 Temp 36.6 ??C (97.9 ??F) (Tympanic) Resp 16 Ht 184 cm (72.44) Wt (!) 90.5 kg (199 lb 8.3 oz) SpO2 100% BMI 26.73 kg/m2 General: Well developed, well nourished, NAD. Talkative [...] orders placed or performed in visit on 01/13/18 HEMAGRAM AND DIFFERENTIAL Result Value Ref Range WBC 7.60 4.5 - 13.0 K/cmm RBC 5.13 4.50 - 5.30 M/cmm Hemoglobin 14.9 13.0 - 16.0 gm/dl HCT 43.0 37.0 - 49.0 % MCV 84 78 - 98 fl MCH 29.0 pg MCHC 34.7 gm/dl RDW-CV 12.9 % RDW-SD 39.6 fl PLT 246 156 - 312 K/cmm MPV 9.8 fl Neutrophils 55.0 % Lymphocytes 33.9 % Monocytes 9.1 % Eosinophils 1.4 % Basophils 0.3 % Immature Grans 0.3 % ABS Neutrophils 4.18 K/cmm ABS Lymphs 2.58 K/cmm ABS Monocytes 0.69 K/cmm ABS Eosinophils 0.11 K/cmm ABS Basophils 0.02 K/cmm ABS Immature Grans 0.02 K/cmm Type of Diff: Automated COMPREHENSIVE METABOLIC PANEL (CMP) Result Value Ref Range Potassium 4.2 3.3 - 4.6 mEq/L Sodium 143 136 - 145 mEq/L Chloride 103 96 - 110 mEq/L CO2 27 22 - 32 mEq/L Total Alkaline Phosphatase 96 (L) 116 - 483 U/L Bilirubin, Total 0.8 <1.0 mg/dl AST 59 (H) 15 - 40 U/L ALT 32 <46 U/L Albumin 4.7 3.7 - 5.6 g/dl Total Protein 7.7 6.3 - 8.6 g/dl Creatinine 0.85 0.50 - 1.00 mg/dl GFR, Calculated Age <18 ml/min/1.73m2 BUN 17 8 - 21 mg/dl Calcium 10.0 9.2 - 10.7 mg/dl Calculated Calcium 9.4 9.2 - 10.7 mg/dl Glucose, Serum 91 70 - 100 mg/dl Fasting? Unknown IMAGING STUDIES REVIEWED: 01/13/2018 Echocardiogram:Normal IMPRESSION: Jaswinder is an 17 y.o. 8 m.o. adolescent with a history of AML s/p treatment on [id number] protocol with intensive chemotherapy including gemtuzumab in CR1. He is currently 9 years off therapy. PLAN: AML Treated per [id number]. Completed Off therapy since 10/21/2008 Therapy consisted of: Cytarabine IT, cytarabine (low dose IV), cytarabine (high dose IV), daunorubicin (300 mg/m2), mitoxantrone (48 mg/m2) total anthracycline dose = 492 mg/m2), asparaginase, etoposide and gemtuzumab. Remains in first complete remission. No signs or symptoms suggestive of disease recurrence. Obsessive compulsive behavior At least during today's visit his obsessive compulsive behaviors were much less prominent. Osteochondroma of right tibia Seen by Dr Claros 12/2010. 2 cm mass right tibial osteochondroma diagnosed by Dr Claros with no treatment necessary. Therapy-related potential for late Effects Potential late [...] Normal EKG and echocardiogram today. Next due 01/2019. Bone Health: Reviewed importance of calcium, vitamin [...] does not necessarily correlate with fertility changes. Transitioning: Geronimo knows the name of his disease - we discussed current thinking re etiology, hereditability (little), recommendations for long-term survivorship followup. DISPOSITION: Return to clinic in 1 year for history, physical examination, labs and echocardiogram/EKG. Pt seen and examined in person. Discussed plan with pt's family, staff, and nursing staff. Thanks, Ar Rene MD Pedi Hem/Onc beeper [phone] documented in this encounter Plan of Treatment Upcoming Encounters Date Type Specialty Care Team Description 12/18/2022 Ancillary Procedure Cardiology 12/18/2022 Office Visit Cardiology Bg Kelsey MD [address] [facility], [address] 1 [place], [place] [address] (Wo rk) documented as of this encounter Procedures Procedure Name Priority Date/Time Associated Diagnosis Comme nts COMPLETE BLOOD COUNT Routine 01/13/2018 11:21 AML (acute myelo id Results for this AND DIFFERENTIAL EST leukemia) in procedure a re in remission ([facility]) the resu lts ([facility]) section. History of chemotherapy COMPREHENSIVE Routine 01/13/2018 11:21 AML (acute myeloid Resu lts for this METABOLIC PANEL (CMP) EST leukemia) in proced ure are in remission ([facility]) the resu lts ([facility]) section. History of chemotherapy documented in this encounter Results (ABNORMAL) COMPREHENSIVE METABOLIC PANEL (CMP) (01/13/2018 11:21 EST) Pathologist Sig nature Potassium 4.2 3.3 - 4.6 mEq/L [facility] Sodium 143 136 - 145 mEq/L [facility] Chloride 103 96 - 110 mEq/L [facility] CO2 27 22 - 32 mEq/L [facility] Total Alkaline 96 (L) 116 - 483 U/L [facility] Phosphatase LABOR[facility]ORY SERVICES Bilirubin, Total 0.8 <1.0 mg/dl [facility] AST 59 (H) 15 - 40 U/L [facility] ALT 32 <46 U/L [facility] Albumin 4.7 3.7 - 5.6 g/dl [facility] Total Protein 7.7 6.3 - 8.6 g/dl [facility] Creatinine 0.85 0.50 - 1.00 [facility] mg/dl LABOR[facility]ORY SERVICES GFR, Calculated Age <18 ml/min/1.73m2 [facility] BUN 17 8 - 21 mg/dl [facility] Calcium 10.0 9.2 - 10.7 [facility] mg/dl LAB[facility]ORY [facility] Calculated Calcium 9.4 9.2 - 10.7 [facility] mg/dl LABOR[facility]ORY SERVICES Glucose, Serum 91 70 - 100 mg/dl [facility] Fasting? Unknown [facility] Specimen Blood specimen (specimen) - Blood Performing Organization Address City/State/ZIP Code Phon e Number [facility] [address] [place] [address] SERVICES HEMAGRAM AND DIFFERENTIAL (01/13/2018 11:21 EST) Pathologist Sig nature WBC 7.60 4.5 - 13.0 [facility] K/cm LABORATORY SERVICES RBC 5.13 4.50 - 5.30 [facility] M/[facility] SERVICES Hemoglobin 14.9 13.0 - 16.0 [facility] gm/dl LABORATORY SERVICES HCT 43.0 37.0 - 49.0 % [facility] MCV 84 78 - 98 fl [facility] MCH 29.0 pg [facility] MCHC 34.7 gm/dl [facility] RDW-CV 12.9 % [facility] RDW-SD 39.6 fl [facility] PLT 246 156 - 312 K/[facility]ORATORY SERVICES MPV 9.8 fl [facility] Neutrophils 55.0 % [facility] Lymphocytes 33.9 % [facility] Monocytes 9.1 % [facility] Eosinophils 1.4 % [facility] Basophils 0.3 % [facility] Immature Grans 0.3 % [facility] ABS Neutrophils 4.18 K/cmm [facility] ABS Lymphs 2.58 K/cmm [facility] ABS [facility]ocytes 0.69 [facility] ABS Eosinophils 0.11 K/cmm [facility] ABS Basophils 0.02 [facility] ABS Immature Grans 0.02 K/cmm [facility] Type of Diff: Automated [facility] Specimen Blood specimen (specimen) - Blood Performing Organization Address City/State/ZIP Code Phon e Number [facility] [address] [place] [address] SERVICES documented in this encounter Visit Diagnoses Diagnosis AML (acute myeloid leukemia) in [facility] ([facility]) (HCC) - Primary Acute myeloid leukemia in remission Compulsive behavior Obsessive-compulsive disorders Osteochondroma of tibia, unspecified lat erality Dry skin dermatitis Contact dermatitis and other eczema due to other specified agent History of chemotherapy Personal history of antineoplastic chemo therapy Learning difficulty Unspecified delay in development documented in this encounter Care Teams Image Processing Engineer Relationship Specialty Start Date End Date Bernard Newman MD PCP - General 10/21/[address] [place] [address] Sully Baldwin NP Nurse Practitioner 09/05/[address] [place] [phone] documented as of this encounter
--- OUTSIDE RECORDS SUMMARY | 2022-05-10 08:28 | XMS_ITS | Encounter Summary ---
:2000 Author Organization [facility] Address [address] [place] [address] Care Team Providers Name Role Phone Sully Baldwin ELECTRIC TRUCK DRIVER Unavailable Bernard Newman MD Primary Care Provider [phone] Reason for Visit Reason Comments Cardiac Testing Encounter Details Date Type Department Care Team Description 01/13/2018 Nurse Only [facility] Unknown, Emory horton MD AML ([facility] Pediatric Flyer, Augustine Sbiley MD [address] [place] [address] leukemia) in Cardiology - Main Nurse, Cardiology Pedi remission ([facility] [place] ([facility]) (Primary [address] [facility]) [place] [address] Social History Tobacco Use Types Packs/Day Years Used Date Never Smoker Smokeless Tobacco: Never Used Sex Assigned at Date Recorded Not on file documented as of this encounter Last Filed Vital Signs Vital Sign Reading Time Taken Comments Blood Pressure 120/58 01/13/2018 0947 EST Pulse 68 01/13/2018 0947 EST Temperature 36.6 ??C (97.9 ??F) 01/13/2018 0947 EST Respiratory Rate 16 01/13/2018 0947 EST Oxygen Saturation 100% 01/13/2018 0947 EST Inhaled Oxygen Concentration - - Weight 90.5 kg (199 lb 8.3 oz) 01/13/2018 0947 EST Height 184 cm (6' 0.44) 01/13/2018 0947 EST Body Mass Index 26.73 01/13/2018 0947 EST documented in this encounter Functional Status [...] as of this encounter Discharge Diagnoses Diagnosis Z08 Encntr for follow-up exam after trtm t for malignant neoplasm-Z08[ICD-10-CM] C92.01 Acute myeloblastic leukemia, in r emission-C92.01[ICD-10-CM] documented in this encounter Discharge Disposition Disposition Code Departure Means Destination Auto Discharge documented in this encounter Progress Notes Francesca Tan, RN - 01/13/2018 0930 EST Diana here for ekg & echo due to history of AML in remission. Ekg done & echo being done now. Will f/u with Dr. Rene after. documented in this encounter Plan of Treatment Upcoming Encounters Date Type Specialty Care Team Description 12/18/2022 Ancillary Procedure Cardiology 12/18/2022 Office Visit Cardiology Bg Kelsey MD [address] [facility], [facility], Level 1 [place], [place] [address] (Wo rk) documented as of this encounter Procedures Procedure Name Priority Date/Time Associated Diagnosis Comme nts ECG REPORT - 01/13/2018 11:33 SCANNED EST EKG 12-LEAD Routine 01/13/2018 9:52 EST AML (acute myeloid Re sults for this leukemia) in procedure are i n remission ([facility]) the resu lts ([facility]) section. documented in this encounter Results EKG 12-LEAD (01/13/2018 9:52 EST) Specimen Narrative [facility] EKG - 01/13/2018 11:3 0 EST ? [facility] [place] [facility] Pediatrics ? Test Date: ?2018-01-13 Pat Name: ? DIANA ROSS ? Department: ?? [id number] ? Room: ? Gender: ? M ?Jersey Knitter: ?? [id number] : ?2000 ? Requested By: LAUREN Woo Order Number: [id number] ? Reading MD: ?? ALY FLORES MD ? Measurements Intervals ?[place] ? Rate: ? 69 ? P: ?58 NM: ? 158 ?QRS: ?76 QRSD: ? 87 ? T: ?52 QT: ? 380 ? QTc: ?408 ? Interpretive Statements ..PEDIATRIC ECG INTERPRETATION Normal sinus rhythm Normal ECG, including ventricular forces and intervals. Compared to ECG of 01/14/2017 10:53:47, no significant change. I reviewed the tracing and have either a greed or edited the findings in this report. Electronically Signed On 11:30:03 EST by ALY FLORES MD. Procedure Note Aly Flores MD - 01/13/2018 [facility] Pediatrics Test Date: 2018-01-13 Pat Name: DIANA ROSS Department: [address] Room: Gender: [place] Knitter: [id number] : 2000 Requested By: LAUREN Woo Order Number: [id number] Reading MD: Maryjo FLORES MD Measurements Intervals [place] Rate: 69 P: 58 NM: 158 QRS: 76 QRSD: 87 T: 52 QT: 380 QTc: 408 Interpretive Statements ..PEDIATRIC ECG INTERPRETATION Normal sinus rhythm Normal ECG, including ventricular forces and intervals. Compared to ECG of 01/14/2017 10:53:47, no significant change. I reviewed the tracing and have either a greed or edited the findings in this report. Electronically Signed On 11:30:03 EST by ALY FLORES MD. Performing Organization Address City/State/ZIP Code Phon e Number [facility] EKG documented in this encounter Visit Diagnoses Diagnosis AML (acute myeloid leukemia) in [facility] ([facility]) (HCC) - Primary Acute myeloid leukemia in remission documented in this encounter Orders Procedures Count Last Ordered Date First Ordered Date ECG REPORT - SCANNED 1 01/13/2018 documented in this encounter Care Teams Stripping Shovel Oiler Relationship Specialty Start Date End Date Bernard Newman MD PCP - General 10/21/13 [place] [address] Sully Baldwin NP Nurse Practitioner 09/05/[address] [place] [address] [phone] documented as of this encounter
--- OUTSIDE RECORDS SUMMARY | 2022-05-10 08:28 | XMS_ITS | Encounter Summary ---
:2002 Author Organization [facility] Address [address] [place] [address] Care Team Providers Name Role Phone Sully Baldwin LOAN PROCESSING SUPERVISOR Unavailable Bernard Newman MD Primary Care Provider [phone] Encounter Details Date Type Department Care Team Description 08/26/2016 Hospital Encounter [facility] Unknown, Provider, [facility] [address] [place] [address] [place] [address] (Work) [phone] Social History Tobacco Use Types Packs/Day Years Used Date Never Smoker Smokeless Tobacco: Never Used Sex Assigned at Date Recorded Not on file documented as of this encounter Discharge Disposition Disposition Code Departure Means Destination Home or Self Shelter documented in this encounter Plan of Treatment Upcoming Encounters Date Type Specialty Care Team Description 12/18/2022 Ancillary Procedure Cardiology 12/18/2022 Office Visit Cardiology Bg Kelsey MD [address] [place] [address], [address] [place], [place] [phone] (Wo rk) documented as of this encounter Visit Diagnoses Not on filedocumented in this encounter Care Teams Automatic Coin Machine Mechanic Relationship Specialty Start Date End Date Bernard Newman MD PCP - General 10/21/[address] [place] [address] Sully Baldwin NP Nurse Practitioner 09/05/[address] [place] [phone] documented as of this encounter
--- OUTSIDE RECORDS SUMMARY | 2022-05-10 08:28 | XMS_ITS | Encounter Summary ---
:2002 Author Organization [facility] Address [address] [place] [address] Care Team Providers Name Role Phone Sully Baldwin MUSIC COMPOSITION TEACHER Unavailable Bernard Newman MD Primary Care Provider [phone] Reason for Visit Reason Onset Date Comments Fever 08/26/2016 Sweats 08/26/2016 Encounter Details Date Type Department Care Team Description 08/26/2016 Telephone [facility] Dudley Rene MD Fever; Sweats Pediatric Hematology & [address] [place] [address] [place] [phone] [place] [address] [place] [address] [phone] Social History Tobacco Use Types Packs/Day Years Used Date Never Smoker Smokeless Tobacco: Never Used Sex Assigned at Date Recorded Not on file documented as of this encounter Miscellaneous Notes Telephone Encounter - Pat North RN - 08/26/2016 1034 EDT Returned call to mom to discuss concerns for 5 days of fevers and night time sweats. Mom reports that Geronimo developed a fever last evening. Friday he was c/o low back pain andfever spiked to 104-104.3, seen in the local ED. Mom reports that Geronimo's fevers have remained in dea781 range, he continues having night time sweats, c/o general malaise. She does not appreciate any ly mphadenopathy, no resp/GI/ symptoms. Geronimo has appointment this p.m. With PCP. Geronimo completed AML therapy in Oct 2008. Mom will have PCP call if there are concerns with the exam today. Pat North, RN elephone Encounter - Mayra Wilson - 08/26/2016 0818 EDT Mom calling to speak with the nurse. Pt has been sick for 5 days. Fever and sweats at night. documented in this encounter Plan of Treatment Upcoming Encounters Date Type Specialty Care Team Description 12/18/2022 Ancillary Procedure Cardiology 12/18/2022 Office Visit Cardiology Bg Kelsey MD [address] [place] [address], [address] [place] [address] (Wo rk) documented as of this encounter Visit Diagnoses Not on filedocumented in this encounter Care Teams Assistant Professor Of Art Relationship Specialty Start Date End Date Bernard Newman MD PCP - General 10/21/13 [address] [place] [address] Sully Baldwin NP Nurse Practitioner 09/05/[address] [place] [address] [phone] documented as of this encounter
--- OUTSIDE RECORDS SUMMARY | 2022-05-10 08:28 | XMS_ITS | Encounter Summary ---
:2002 Author Organization [facility] Address [address] [place] [address] Care Team Providers Name Role Phone Sully Baldwin CONTACT LENS ASSISTANT Unavailable Bernard Newman MD Primary Care Provider [phone] Encounter Details Date Type Department Care Team Description 02/09/[address] [facility]- Rishi Baldwin NP [address] [phone] (Wo rk) Social History Tobacco Use Types [...] as of this encounter Discharge Diagnoses Diagnosis Z80.6 Family history of leukemia-Z80.6[I CD-10-CM] R19.7 Diarrhea, unspecified-R19.7[ICD-10 -CM] documented in this encounter Medications at Time of Discharge Medication Sig Dispensed Refills Start Date End Date sertraline (ZOLOFT) 20 Take 50 mg by mouth 0 12/05/2021 mg/mL concentrated daily. solutionIndications: anxiety with depression testosterone cypionate Inject 50 mg into 0 03/14/2021 (DEPO-TESTOSTERONE) 200 the muscle every 7 mg/mL injection days. documented as of this encounter Discharge Disposition Disposition Code Departure Means Destination Home or Self Care documented in this encounter Plan of Treatment Upcoming Encounters Date Type Specialty Care Team Description 12/18/2022 Ancillary Procedure Cardiology 12/18/2022 Office Visit Cardiology Bg Kelsey MD 111 [facility] Level 1 [place], [place] [phone] (Wo rk) documented as of this encounter Visit Diagnoses Not on filedocumented in this encounter Care Teams Hearing Aid Specialist Relationship Specialty Start Date End Date Bernard Newman MD PCP - General 10/21/13 [place] [address] Sully Baldwin CONTACT LENS ASSISTANT Nurse Practitioner 09/05/[address] [place] [phone] documented as of this encounter
--- OUTSIDE RECORDS SUMMARY | 2022-05-10 08:28 | XMS_ITS | Encounter Summary ---
:2002 Author Organization [facility] Address [address] [place] [address] Care Team Providers Name Role Phone Sully Baldwin ENGINE ROOM OPERATOR Unavailable Bernard Newman MD Primary Care Provider [phone] Reason for Visit Reason Comments Follow-up AML of therapy Encounter Details Date Type Department Care Team Description 02/09/2019 Office Visit [facility] History of chemotherapy (Primary Dx); Hospital Pediatric [address] [place] [address] Family history of AML (acute myeloid leukemia); Hematology & Avenue AML (acute myeloid leukemia) in [facility] (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) [address] [place] [address] [place] [address] Social History Tobacco Use Types Packs/Day Years Used Date Never Smoker Smokeless Tobacco: Never Used Sex Assigned at Date Recorded Not on file documented as of this encounter Last Filed Vital Signs Vital Sign Reading Time Taken Comments Blood Pressure 126/68 02/09/2019 1110 EDT Pulse 63 02/09/2019 1110 EDT Temperature 36.2 ??C (97.2 ??F) 02/09/2019 1110 EDT Respiratory Rate - - Oxygen Saturation - - Inhaled Oxygen Concentration - - Weight 86.1 kg (189 lb 13.1 oz) 02/09/2019 1110 EDT Height 183.8 cm (6' 0.36) 02/09/2019 1110 EDT Body Mass Index 25.49 02/09/2019 1110 EDT documented in this encounter Functional Status [...] this encounter Patient Instructions Patient InstructionsDudley Rene MD, MD - 02/09/2019 11:00 EDT Call Pediatric Hematology/Oncology 24 hours a day [...] to increased bleeding. documented in this encounter Discharge Disposition Disposition Code Departure Means Destination Auto Discharge documented in this encounter Progress Notes Dudley Rene MD, MD - 02/09/2019 1100 EDT Pediatric Hem/Onc Survivorship Follow up Visit Chief Complaint Patient presents with ??? Follow-up AML of therapy HISTORIAN: Patient, his mother, old records. Primary Care per Bernard Newman Pediatric Oncology Summary/HISTORY OF PRESENT ILLNESS: Jaswinder is an 18 y.o. 9 m.o. adolescent boy diagnosed with acute myelocytic [...] last being seen by Pedi Oncology in January of 2018 Geronimo has generally done well. However he has been diagnosed with Kallman syndrome (hypogonadic hypogonadism) and has been started on daily testosterone injections. He has a good energy and activity level with a healthy appetite. However he also reports loose stools in the morning without cramping, blood, mucous. He reports that this issue has been ongoing for years. His active, in the 10th grade and working at [employer] after school. His long-standing obsessive compulsive symptoms are better Controlled with sertraline. His mother voices no new concerns today. He is here for follow up for AML, 10 years off therapy. Past Medical History: Diagnosis Date ??? 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 WBC 49,000, GAME ARTIST negative, testicles negative. 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 Completed therapy 10/21/2008. ??? Dry skin dermatitis 11/2010 ??? 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 Other complication of labor and delivery, antepartum condition or complication gestational diabetes Current Outpatient Medications: sertraline (ZOLOFT) 20 mg/mL concentrated solution testosterone cypionate (DEPO-TESTOSTERONE) 200 mg/mL injection No current facility-administered medications for this visit. Allergies Allergen Reactions ??? Ambisome [Amphotericin B Liposome] hypotension ??? Voriconazole Rash Family history of first degree relatives was reviewed and documented in [facility]. No other significant medical problems were noted in first degree relatives. SOCIAL HISTORY: No changes since last visit. Still lives with his parents in [place], [place]. He is in the 10th grade with a [address]. ROS: System Negative Positive Comments Constitutional X Eyes X ENT X Cardiovascular X Pulmonary X Gastrointestinal X Genitourinary X Musculoskeletal X Skin X Neurological X Psychiatric X long-standing OCD behaviors. Endocrine X Kallman syndrome being treated at [facility] Hematologic/Lymph X Allergic/Immunologic X Pain X Objective: Physical Exam: BP 126/68 Pulse 63 Temp 36.2 ??C (97.2 ??F) (Tympanic) Ht 183.8 cm (72.36) Wt 86.1 kg (189 lb 13.1 oz) BMI 25.49 kg/m?? General: Well developed, well nourished, NAD. [...] orders placed or performed in visit on 02/09/19 COMPREHENSIVE METABOLIC PANEL (CMP) Result Value Ref Range Potassium 4.3 3.3 - 4.6 mEq/L Sodium 141 136 - 145 mEq/L Chloride 104 96 - 110 mEq/L CO2 30 22 - 32 mEq/L Total Alkaline Phosphatase 69 58 - 237 U/L Bilirubin, Total 0.7 <1.0 mg/dl AST 25 15 - 45 U/L ALT 23 <41 U/L Albumin 4.9 3.7 - 5.6 g/dl Total Protein 7.6 6.3 - 8.6 g/dl Creatinine 0.80 0.50 - 1.00 mg/dl GFR, Calculated Age <18 ml/min/1.73m2 BUN 19 8 - 21 mg/dl Calcium 9.9 8.9 - 10.7 mg/dl Calculated Calcium 9.2 8.9 - 10.7 mg/dl Glucose, Serum 94 70 - 100 mg/dl Fasting? Unknown COMPLETE BLOOD COUNT AND DIFFERENTIAL Result Value Ref Range WBC 5.45 4.6 - 11.2 K/cmm RBC 5.24 4.50 - 5.30 M/cmm Hemoglobin 15.5 13.0 - 16.0 gm/dl HCT 45.6 37.0 - 49.0 % MCV 87 78 - 98 fl MCH 29.6 pg MCHC 34.0 gm/dl RDW-CV 12.8 % RDW-SD 40.4 fl PLT 217 156 - 312 K/cmm MPV 10.2 fl Neutrophils 53.3 % Lymphocytes 34.5 % Monocytes 9.7 % Eosinophils 1.3 % Basophils 0.6 % Immature Grans 0.6 % ABS Neutrophils 2.91 K/cmm ABS Lymphs 1.88 K/cmm ABS Monocytes 0.53 K/cmm ABS Eosinophils 0.07 K/cmm ABS Basophils 0.03 K/cmm ABS Immature Grans 0.03 K/cmm Type of Diff: Automated IMAGING STUDIES REVIEWED: 01/13/2018 Echocardiogram:Normal IMPRESSION: Jaswinder is an 18 y.o. 9 m.o. adolescent with a history of AML s/p treatment on [id number] protocol with intensive chemotherapy including gemtuzumab in CR1. He is currently 9 years off therapy. The gemtuzumab study question is still not conclusively answered, although it appears to confer significant improvement in prognosis in the pediatric age group PLAN: AML Remains in first complete remission. No signs or symptoms suggestive of disease recurrence. Treated per [id number]. Completed Off therapy since 10/21/2008 Therapy consisted of: Cytarabine IT, cytarabine (low dose IV), cytarabine (high dose IV), daunorubicin (300 mg/m2), mitoxantrone (48 mg/m2) total anthracycline dose = 492 mg/m2), asparaginase, etoposide and gemtuzumab. Obsessive compulsive behavior Better controlled on sertraline Osteochondroma of right tibia Seen by Dr [...] Normal EKG and echocardiogram today. Next due 01/2020. Bone Health: Reviewed importance of calcium, vitamin [...] Return to clinic in 1 year for ECHO, 2 years for history, physical examination, labs and echocardiogram/EKG. Pt seen and examined in person. Discussed plan with pt's family, staff, and nursing staff. Thanks, Ar Rene MD Pedi Hem/Onc beeper 1652 documented in this encounter Plan of Treatment Upcoming Encounters Date Type Specialty Care Team Description 12/18/2022 Ancillary Procedure Cardiology 12/18/2022 Office Visit Cardiology Bg Kelsey MD 111 [facility], Level 1 [place], [place] [phone] (Wo rk) documented as of this encounter Procedures Procedure Name Priority Date/Time Associated Comments Diagnosis COMPLETE BLOOD COUNT STAT 02/09/2019 11:54 Family history o f Results for this AND DIFFERENTIAL EDT AML (acute myeloid proce dure are in leukemia) the results section. COMPREHENSIVE STAT 02/09/2019 11:54 Family history of Resul ts for this METABOLIC PANEL (CMP) EDT AML (acute myeloid procedure are in leukemia) the results section. documented in this encounter Results COMPLETE BLOOD COUNT AND DIFFERENTIAL (02/09/2019 11:54 EDT) Pathologist Sig nature WBC 5.45 4.6 - 11.2 [facility] LABORATORY SERVICES RBC 5.24 4.50 - 5.30 [facility] LABORATORY SERVICES Hemoglobin 15.5 13.0 - 16.0 [facility] gm/dl LABORATORY SERVICES HCT 45.6 37.0 - 49.0 % [facility] LABORATORY SERVICES MCV 87 78 - 98 fl [facility] LABORATORY SERVICES MCH 29.6 pg [facility] LABORATORY SERVICES MCHC 34.0 gm/dl [facility] LABORATORY SERVICES RDW-CV 12.8 % [facility] LABORATORY SERVICES RDW-SD 40.4 fl [facility] LABORATORY SERVICES PLT 217 156 - 312 K/cmm [facility] LABORATORY SERVICES MPV 10.2 fl [facility] LABORATORY SERVICES Neutrophils 53.3 % [facility] LABORATORY SERVICES Lymphocytes 34.5 % [facility] LABORATORY SERVICES Monocytes 9.7 % [facility] LABORATORY SERVICES Eosinophils 1.3 % [facility] LABORATORY SERVICES Basophils 0.6 % [facility] LABORATORY SERVICES Immature Grans 0.6 % [facility] LABORATORY SERVICES ABS Neutrophils 2.91 K/cmm [facility] LABORATORY SERVICES ABS Lymphs 1.88 K/cmm [facility] LABORATORY SERVICES ABS Monocytes 0.53 K/cmm [facility] LABORATORY SERVICES ABS Eosinophils 0.07 K/cmm [facility] LABORATORY SERVICES ABS Basophils 0.03 K/cmm [facility] LABORATORY SERVICES ABS Immature Grans 0.03 K/cmm [facility] LABORATORY SERVICES Type of Diff: Automated [facility] LABORATORY SERVICES Specimen Blood specimen (specimen) - Blood Performing Organization Address City/[facility] Phon e Number [facility] LAB[facility]ATORY [address] [place] [address] SERVICES COMPREHENSIVE METABOLIC PANEL (CMP) (02/09/2019 11:54 EDT) Pathologist Sig nature Potassium 4.3 3.3 - 4.6 mEq/L [facility] LABORATORY SERVICES Sodium 141 136 - 145 mEq/L [facility] LABORATORY SERVICES Chloride 104 96 - 110 mEq/L [facility] LABORATORY SERVICES CO2 30 22 - 32 mEq/L [facility] LABORATORY SERVICES Total Alkaline 69 58 - 237 U/L [facility] Phosphatase LABORATORY SERVICES Bilirubin, Total 0.7 <1.0 mg/dl [facility] LABORATORY SERVICES AST 25 15 - 45 U/L [facility] LABORATORY SERVICES ALT 23 <41 U/L [facility] LABORATORY SERVICES Albumin 4.9 3.7 - 5.6 g/dl [facility] LABORATORY SERVICES Total Protein 7.6 6.3 - 8.6 g/dl [facility] LABORATORY SERVICES Creatinine 0.80 0.50 - 1.00 [facility] mg/dl LABORATORY SERVICES GFR, Calculated Age <18 ml/min/1.73m2 [facility] LABORATORY SERVICES BUN 19 8 - 21 mg/dl [facility] LABORATORY SERVICES Calcium 9.9 8.9 - 10.7 [facility] mg/dl LABORATORY SERVICES Calculated Calcium 9.2 8.9 - 10.7 [facility] mg/dl LABORATORY SERVICES Glucose, Serum 94 70 - 100 mg/dl [facility] LABORATORY SERVICES Fasting? Unknown [facility] LABORAT[facility] SERVICES Specimen Blood specimen (specimen) - Blood Performing Organization Address City/[facility] Phon e Number [facility] [address] [place] [address] SERVICES documented in this encounter Visit Diagnoses Diagnosis History of chemotherapy - Primary Personal history of antineoplastic chemo therapy Family history of AML (acute myeloid matt kemia) Family history of leukemia AML (acute myeloid leukemia) in remiss n (HCC-CMS) (HCC) Acute myeloid leukemia in remission Osteochondroma of tibia, unspecified lat erality Kallman's syndrome type 4 (HCC-CMS) (HCC ) documented in this encounter Historical Medications This list may reflect changes made after this encounter. Medication Sig Dispensed Refills Start Date End Date sertraline (ZOLOFT) 20 Take 50 mg by mouth 0 12/05/2021 mg/mL concentrated daily. solutionIndications: anxiety with depression testosterone cypionate Inject 50 mg into 0 03/14/2021 (DEPO-TESTOSTERONE) 200 the muscle every 7 mg/mL injection days. added in this encounter Care Teams Floral Manager Relationship Specialty Start Date End Date Bernard Newman MD PCP - General 10/21/[address] [place] [address] Sully Baldwin NP Nurse Practitioner 09/05/[address] [place] [phone] documented as of this encounter
--- OUTSIDE RECORDS SUMMARY | 2022-05-10 08:28 | XMS_ITS | Encounter Summary ---
:2002 Author Organization [facility] Address [address] [place] [address] Care Team Providers Name Role Phone Sully Baldwin DRAFTER DETAIL Unavailable Bernard Newman MD Primary Care Provider [phone] Reason for Visit Cardiology (Routine) - Authorized Specialty Diagnoses / Procedures Referred By Contact Refer red To Contact Pediatric Cardiology Diagnoses History of antineoplastic chemotherapy Acute myeloid leukemia in remission ([facility]) ([facility]) Sully Baldwin NP Ep4 Pedi Cardiology Procedures TRANSTHORACIC ECHO (TTE) COMPLETE [place] ECHO HEART XTHORACIC,COMPLETE W DOPPLER [id number] [place] [address] Phone: [phone] Referral ID Status Reason Start Date Expiration Date Visits V isits Requested Authorized [id number] Authorized 12/08/2019 1 1 Encounter Details Date Type Department Care Team Description 04/25/2020 Ancillary Procedure [facility] Histor y of antineoplastic chemotherapy; [facility] Pediatric Acute mye loid leukemia in remission ([facility]) [place] [address] Social History Tobacco Use Types Packs/Day Years [...] Cardiology Bg Kelsey MD 111 [facility], Level 1 [place], [place] [address] (Wo rk) documented as of this encounter Procedures Procedure Name Priority Date/Time Associated Diagnosis Comme nts TRANSTHORACIC ECHO Routine 04/25/2020 12:35 History of Resul ts for this (TTE) COMPLETE EDT antineoplastic procedure a re in chemotherapy the results Acute myeloid leukemia secti on. in remission ([facility]) documented in this encounter Results TRANSTHORACIC ECHO (TTE) COMPLETE (04/25/2020 12:35 EDT) Specimen Narrative [facility] [place] [facility] - 04/25/2020 13:51 EDT Pediatric Cardiology [address] [place] [address] Date of study: 04/25/2020 Transthoracic Echocardiogram Report [...] (185lb ) BSA: ?2.08m^2 Location: ? Echocardiography [facility] Facility: ? [facility] Registered Nurse: ??Elena Sanders Referring: ?Sully Baldwin Ordering: ? Sully Baldwin Test start time: ??12:10 PM. Test stop time: ??12:40 PM. *PROCEDURE DATA* Procedure information: ??Pertinent image s and digital data are archived for permanent storage and are available for subsequent review. ??Study status: ??Routine. Transthoracic echocar diography. ??M-mode, complete 2D, complete spectral Doppler, and color Dop pler. Transthoracic echocardiography was performed. Images w ere obtained using a Mabayaq 16 cardiac ultrasound machine. ??Blood p ressure: ? 114/66 ?Height percentile: 88.3. ?Weight percentile : 91.9. *INDICATIONS AND HISTORY* Indications: ?? C92. AML. ??C92. AML . ??AML. ??S/p Chemo. ??S/p chemo. C92. Acute myeloblastic leukemia in [place]. *CARDIAC [...] - 1.36 ??-1.2 MM Aortic valve ? Melissa bangura ? 01/13/2018 Reference ?Z Aortic annulus ? 2.1 4 ??cm ?2.16 ? 1.86 - 2.62 ??-0.5 diameter, S Aorta ?Value ? 01/13/2018 Reference ?Z Aortic root ID ? 2.7 4 ??cm ?2.73 ? 2.38 - 3.65 ??-0.9 Aortic root ID, ?2.3 7 ??cm ?2.36 ? 1.99 - 2.96 ??-0.4 STJ, S Mitral valve ? Melissa bangura ? 01/13/2018 Reference ?Z Mitral E-wave peak [...] findings. Electronically signed by Augustine Snyder MD 04/25/2020 13:51 Procedure Note Augustine Snyder MD - 04/25/2020 Pediatric Cardiology [address] [place] [address] Date of study: 04/25/2020 Transthoracic Echocardiogram Report [...] ) BSA: 2.08m^2 Location: Echocardiography Laboratory Facility: [facility] Registered Nurse: Elena Sanders Referring: Sully Baldwin Ordering: Sully Baldwin Test start time: 12:10 PM. Test stop time: 12:40 PM. *PROCEDURE DATA* Procedure information: Pertinent images and digital data are archived for permanent storage and are available for subsequent review. Study status: Routine. Transthoracic echocardi ography. M-mode, complete 2D, complete spectral Doppler, and color Dop pler. Transthoracic echocardiography was performed. Images w ere obtained using a [employer] Epiq 16 cardiac ultrasound machine. Blood pre [...] *MEASUREMENT TABLES* Left ventricle Value 01/13/2018 Referen [facility] LV area, ED, PSAX 26.20 cm^2 24.00 [...] findings. Electronically signed by Augustine Snyder MD 04/25/2020 13:51 Performing Organization Address City/State/ZIP Code Phon e Number [facility] documented in this encounter Visit Diagnoses Diagnosis History of antineoplastic chemotherapy Personal history of antineoplastic chemo therapy Acute myeloid leukemia in remission (HCC -CMS) (HCC) Acute myeloid leukemia in remission documented in this encounter Care Teams Tire Fabricator Relationship Specialty Start Date End Date Bernard Newman MD PCP - General 10/21/13 [facility] [place] [address] Sully Baldwin DRAFTER DETAIL Nurse Practitioner 09/05/[address] [place] [phone] documented as of this encounter
--- OUTSIDE RECORDS SUMMARY | 2022-05-10 08:28 | XMS_ITS | Encounter Summary ---
:2002 Author Organization [facility] Address [address] [place] [address] Care Team Providers Name Role Phone Sully Baldwin CITY DISPATCHER Unavailable Bernard Newman MD Primary Care Provider [phone] Reason for Visit Reason Comments Cardiac Testing Cardiology (Routine) - Specialty Report Received Specialty Diagnoses / Procedures Referred By Contact Refer red To Contact Pediatric Cardiology Diagnoses Acute myeloid leukemia in remission (HCC-CMS) (HCC) Personal history of antineoplastic chemotherapy Dudley Rene MD Ep4 Pedi Cardiology Procedures ECHOCARDIOGRAM [place] ECHO HEART XTHORACIC,COMPLETE W DOPPLER [place] ECHO HEART XTHORACIC,COMPLETE, W/O DOPPLER [address] [place] [address] Phone: [phone] Referral ID Status Reason Start Date Expiration Date Visits V isits Requested Authorized [id number] Specialty 10/11/2014 1 1 Report Received Encounter Details Date Type Department Care Team Description 10/11/2014 Procedure visit [facility] Unknown, Provider, Pediatric Cardiology - Lexy Payan, JUAQUIN [address] [place] [address] [place] [address] Social History Tobacco Use Types Packs/Day Years Used Date Never Smoker Smokeless Tobacco: Never Used Sex Assigned at Date Recorded Not on file documented as of this encounter Plan of Treatment Upcoming Encounters Date Type Specialty Care Team Description 12/18/2022 Ancillary Procedure Cardiology 12/18/2022 Office Visit Cardiology Bg Kelsey MD 111 [facility], Level 1 [place], [place] [phone] (Wo rk) documented as of this encounter Visit Diagnoses Not on filedocumented in this encounter Care Teams Gas Distribution And Emergency Clerk Relationship Specialty Start Date End Date Bernard Newman MD PCP - General 10/21/13 APOLLO H[facility]ES [facility] [place] [address] Sully Baldwin, CITY DISPATCHER Nurse Practitioner 09/05/[address] [place] [phone] documented as of this encounter
--- OUTSIDE RECORDS SUMMARY | 2022-05-10 08:28 | XMS_ITS | Encounter Summary ---
:2002 Author Organization [facility] Address [address] [place] [address] Care Team Providers Name Role Phone Sully Baldwin GLASS MELT OPERATOR Unavailable Bernard Newman MD Primary Care Provider [phone] Reason for Visit Reason Onset Date Comments Appointment Related 11/18/2016 Appointment Related 11/26/2016 Appointment Related 11/28/2016 calling regarding [facility] again Follow-up 11/18/2016 Encounter Details Date Type Department Care Team Description 11/18/2016 Telephone [facility]; [facility] Pediatric [address] [place] [address] Appointment Related; Hematology & Oncology [place], [place] Appo intment Related - [facility] [phone] (calling regarding [address] [facility] late effect clinic [place], [place] [id number] again); Follow-up [phone] Social History Tobacco Use Types Packs/Day Years Used Date Never Smoker Smokeless Tobacco: Never Used Sex Assigned at Date Recorded Not on file documented as of this encounter Miscellaneous Notes Telephone Encounter - Oneyda Sanchez - 12/06/2016 1431 EST Jaswinder's mother called and states she has not heard back from clinic. checked phone number correct elephone Encounter - Oneyda Sanchez - 11/28/2016 0915 EST Jaswinder's mother Joan called regarding the 1 yr fur for late effect, states she would like thisto be taken care of. Spoke to génesis hem/onc RN regarding this. elephone Encounter - Mayra Wilson - 11/26/2016 0959 EST Mom calling with questions regarding late effects clinic. elephone Encounter - Taty Louis - 11/19/2016 1256 EST L/M for mom to call back to get Jaswinder into the Dec. 7th late effects clinic. elephone Encounter - Rachael Lopez - 11/18/2016 1139 EST Mom calling about late effects clinic and would like to schedule Jaswinder for some time in Dec. documented in this encounter Plan of Treatment Upcoming Encounters Date Type Specialty Care Team Description 12/18/2022 Ancillary Procedure Cardiology 12/18/2022 Office Visit Cardiology Bg Kelsey MD [address] [place] [address], [facility], Level 1 [place], [place] [phone] (Wo rk) documented as of this encounter Visit Diagnoses Not on filedocumented in this encounter Care Teams Geomorphology Teacher Relationship Specialty Start Date End Date Bernard Newman MD PCP - General [facility]/21/13 [facility] [place] [place] [id number] Sully Baldwin GLASS MELT OPERATOR Nurse Practitioner 09/05/[address] [place] [phone] documented as of this encounter
--- OUTSIDE RECORDS SUMMARY | 2022-05-10 08:28 | XMS_ITS | Encounter Summary ---
:2002 Author Organization [facility] Address [address] [place] [address] Care Team Providers Name Role Phone Sully Baldwin PUNCH MOLDER Unavailable Bernard Newman MD Primary Care Provider [phone] Reason for Visit Reason Onset Date Comments Results 12/13/2015 Encounter Details Date Type Department Care Team Description 12/13/2015 Telephone [facility] Breanna North RN Results Pediatric Hematology & [address] [place] [address] [place] [address] [address] [place] [address] Social History Tobacco Use Types Packs/Day Years Used Date Never Smoker Smokeless Tobacco: Never Used Sex Assigned at Date Recorded Not on file documented as of this encounter Miscellaneous Notes Telephone Encounter - Pat Norht RN - 12/13/2015 4909 EST Spoke with mom to review testing results from yesterday's clinic visit with Dr. Rene. Discussed referral to Rachel Castelan for neurocognitive testing. Rachel's office will contact parents to schedule. Mom aware to call with questions or concerns. Return to clinic in 1 year. Pat North RN documented in this encounter Plan of Treatment Upcoming Encounters Date Type Specialty Care Team Description 12/18/2022 Ancillary Procedure Cardiology 12/18/2022 Office Visit Cardiology Bg Kelsey MD 111 [facility] 1 [place], [place] [address] (Wo rk) documented as of this encounter Visit Diagnoses Not on filedocumented in this encounter Care Teams Institutional Aide Relationship Specialty Start Date End Date Bernard Newman MD PCP - General 10/21/13 [place] [address] Sully Baldwin PUNCH MOLDER Nurse Practitioner 09/05/[address] [place] [phone] documented as of this encounter
--- OUTSIDE RECORDS SUMMARY | 2022-05-10 08:28 | XMS_ITS | Encounter Summary ---
:2002 Author Organization [facility] Address [address] [place] [address] Care Team Providers Name Role Phone Sully Baldwin HOSPITAL CLEANING SPECIALIST Unavailable Bernard Newman MD Primary Care Provider [phone] Reason for Visit Reason Onset Date Comments Surveillance 03/22/2014 Encounter Details Date Type Department Care Team Description 03/22/2014 Orders Only [facility] Acute myeloid leukemia in remission ([facility] -[facility]) (Primary Dx); Hospital Pediatric [address] [place] [address] history of antineoplastic chemotherapy Hematology & Avenue Oncology - [facility] [phone] [place] [address] [place] [address] [phone] Social History Tobacco Use Types Packs/Day Years Used Date Never Smoker Smokeless Tobacco: Never Used Sex Assigned at Date Recorded Not on file documented as of this encounter Plan of Treatment Upcoming Encounters Date Type Specialty Care Team Description 12/18/2022 Ancillary Procedure Cardiology 12/18/2022 Office Visit Cardiology Bg Kelsey MD 111 [facility], [facility], Level 1 [place], [place] [phone] (Wo rk) Scheduled Orders Name Type Priority Associated Diagnoses Order S chedule EKG 12-LEAD ECG Routine Acute myeloid leukemia in re mission Ordered: 03/22/2014 ([facility]) Personal history of antineop lastic chemotherapy documented as of this encounter Visit Diagnoses Diagnosis Acute myeloid leukemia in remission ([facility] -[facility]) (HCC) - Primary Acute myeloid leukemia in remission Personal history of antineoplastic chemo therapy documented in this encounter Care Teams Help Desk Internship Relationship Specialty Start Date End Date Bernard Newman MD PCP - General 10/21/[address] [place] [address] [place] [address] Sully Baldwin NP Nurse Practitioner 09/05/[address] [place] [phone] documented as of this encounter
--- OUTSIDE RECORDS SUMMARY | 2022-05-10 08:28 | XMS_ITS | Encounter Summary ---
:2002 Author Organization [facility] Address [address] [place] [address] Care Team Providers Name Role Phone Sully Baldwin PASTER OPERATOR Unavailable Brenard Newman MD Primary Care Provider [phone] Reason for Visit Reason Onset Date Comments Appointment Related 01/31/2020 Encounter Details Date Type Department Care Team Description 01/31/2020 Telephone [facility] Sully Baldwin PASTER OPERATOR Appointment Related Hospital Pediatric [address] [place] [phone] [place] [address] [place] [address] [phone] Social History Tobacco Use Types Packs/Day Years [...] this encounter Miscellaneous Notes Telephone Encounter - Ellie Nascimento - 01/31/2020 1323 EDT Called mom on home phone to reschedule Jaswinder's echo & ekg on February 14. Phone number disconnected. Left message on work number, asking for a call back. documented in this encounter Plan of Treatment Upcoming Encounters Date Type Specialty Care Team Description 12/18/2022 Ancillary Procedure Cardiology 12/18/2022 Office Visit Cardiology Bg Kelsey MD 111 [facility], Level 1 [place], [place] [phone] (Wo rk) documented as of this encounter Visit Diagnoses Not on filedocumented in this encounter Care Teams Engineering Research Manager Relationship Specialty Start Date End Date Bernard Newman MD PCP - General 10/21/[address] [place] [address] Sully Baldwin PASTER OPERATOR Nurse Practitioner 09/05/10 [address] [place] [phone] documented as of this encounter
--- OUTSIDE RECORDS SUMMARY | 2022-05-10 08:28 | XMS_ITS | Encounter Summary ---
:2002 Author Organization [facility] Address [address] [place] [address] Care Team Providers Name Role Phone NicolasaArmandoSully M HEAD OF MARKETING ANALYTICS Unavailable Bernard Newman MD Primary Care Provider [phone] Reason for Visit Reason Onset Date Comments Labs Only 12/08/2015 Encounter Details Date Type Department Care Team Description 12/08/2015 Orders Only [facility] Children's Pat Norht, JUAQUIN AML (acute myeloid Hospital Pediatric [address] [place] [address] leukemia) in Hematology & Oncology [place], [place] [address] remission ([facility]) - [facility] (Primary Dx) [address] [place] [phone] Social History Tobacco Use Types Packs/Day Years Used Date Never Smoker Smokeless Tobacco: Never Used Sex Assigned at Date Recorded Not on file documented as of this encounter Plan of Treatment Upcoming Encounters Date Type Specialty Care Team Description 12/18/2022 Ancillary Procedure Cardiology 12/18/2022 Office Visit Cardiology Bg Kelsey MD [address] [facility] [address] [facility], Level 1 [place], [place] [phone] (Wo rk) documented as of this encounter Visit Diagnoses Diagnosis 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 ([facility]) (HCC) - Primary Acute myeloid leukemia in remission documented in this encounter Care Teams Water Resource Engineer Relationship Specialty Start Date End Date Bernard Newman MD PCP - General 10/21/[place] [address] Sully Baldwin NP Nurse Practitioner 09/05/[address] [place] [phone] documented as of this encounter
--- OUTSIDE RECORDS SUMMARY | 2022-05-10 08:28 | XMS_ITS | Encounter Summary ---
:2002 Author Organization [facility] Address [address] [place] [address] Care Team Providers Name Role Phone Sully Baldwin CLAY MILLER Unavailable Bernard Newman MD Primary Care Provider [phone] Reason for Visit Reason Comments Follow-up AML off therapy Encounter Details Date Type Department Care Team Description 12/12/2015 [facility] AML (acute myeloid leukemia) in [facility] ([facility]) (Primary Dx); Hospital Pediatric [address] [place] [address] History of chemotherapy; Hematology & Avenue Learning difficulty Oncology - [place] [phone] [place] [address] [place] [address] [phone] Social History Tobacco Use Types Packs/Day Years Used Date Never Smoker Smokeless Tobacco: Never Used Sex Assigned at Date Recorded Not on file documented as of this encounter Last Filed Vital Signs Vital Sign Reading Time Taken Comments Blood Pressure 119/65 12/12/2015 0916 EST Pulse 65 12/12/2015 0916 EST Temperature 36.5 ??C (97.7 ??F) 12/12/2015 0916 EST Respiratory Rate - - Oxygen Saturation - - Inhaled Oxygen Concentration - - Weight 78.2 kg (172 lb 6.4 oz) 12/12/2015 0916 EST Height 179.1 cm (5' 10.51) 12/12/2015 0916 EST Body Mass Index 24.38 12/12/2015 0916 EST documented in this encounter Patient Instructions Patient InstructionsDudley Rene MD - 12/12/2015 10:54 EST Please call your child's Primary Care [...] concerns. documented in this encounter Progress Notes Dudley Rene MD - 12/12/2015 1009 EST Pediatric Hem/Onc Followup Visit Reason for visit: Followup of AML, 7 1/2 years off therapy HISTORIAN: Patient and his mother. HISTORY OF PRESENT ILLNESS: Jaswinder Ross is an 15 y.o. 7 m.o. boy diagnosed with acute myelocytic leukemia [...] Since his last visit one year prior (10/2015) Jaswinder continues to do well overall. He is now in the seventh grade and has a 504 plan. Continues to have problems with math and writing. He tested out of his IEP again for this year, but clearly needs additional help. HE is physically active, participating in soccer, some basketball, and with a passion for snowboarding. He reports normal strength, coordination, and stamina. He has had no significant injuries, accidents or hospitalizations. Immunizations are UTD per parent. Denies bruising, bleeding or petechiae. Appetite is good. He is reported to still have obsessive compulsive behaviors, but has become much better at masking these. a no new problems reported. Past Medical History Diagnosis Date ??? Other complication of labor and delivery, antepartum condition or complication gestational diabetes ??? 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 WBC 49,000, CLINICAL RESEARCHER negative, testicles negative. Chromosomes t(8:21), (q22:q22), 9q [...] family history since last visit in October 2014. SOCIAL HISTORY: Social history as noted above. Lives with his parents and brother in [place], [place]. He is in the 7th grade in a standard classroom with a 504 plan. REVIEW OF SYSTEMS: ROS: A complete 11 point ROS was performed. Significant positives and negatives are noted in the HPIabove. Performance status; 100 Pain: none reported Physical Exam: BP 119/65 mmHg Pulse 65 Temp(Src) 36.5 ??C (97.7 ??F) (Tympanic) Ht 179.1 cm (70.51) Wt 78.2 kg (172 lb 6.4 oz) BMI 24.38 kg/m2 Both height and weight are tracking in proportion to each other, but above the 95% General: Well-developed, well nourished, no acute distress. [...] CBC: Lab Results Component Value Date WBC 7.44 10/11/2014 RBC 4.85 10/11/2014 HGB 14.0 10/11/2014 HCT 40.3 10/11/2014 MCV 83 10/11/2014 MCH 28.8 10/11/2014 MCHC 34.8 10/11/2014 PLT 190 10/11/2014 NEUTROABS 3.80 10/21/2013 BMP: Lab Results Component Value Date NA 146* 10/11/2014 K 4.2 10/11/2014 CL 105 10/11/2014 CO2 28 10/11/2014 BUN 19* 10/11/2014 CREATININE 0.55 10/11/2014 GLUCOSEFINGE 80 10/02/2008 CALCIUM 9.6 10/11/2014 MG 1.6* 10/13/2008 PHOS 5.5* 10/13/2008 LABALBU 4.5 10/11/2014 LFT: Lab Results Component Value Date TBIL 0.5 10/11/2014 ALKPHOS 254 10/11/2014 AST 29 10/11/2014 ALT 26 10/11/2014 ECHO today, pending IMPRESSION: Jaswinder is an 15 y.o. 7 m.o. boy with a history of AML, treated per [id number] protocol with intensive chemotherapy including gemtuzumab in [...] by Dr Claros with no treatment necessary. Late Effects - continued discussion of AML and late effects of therapy including: Cardiac: At risk for cardiomyopathy related to anthracycline exposure. Jaswinder received 492 mg/m2 ofanthracyclines throughout his therapy. The maximum lifetime dose of anthracyclines is 500 mg/m2, placing him at higher risk for cardiotoxicity. Recommend echocardiograms & EKG's performed on a yearly basis. Had ECHO 1 yr ago which was normal. Had ECHO today - results pending. Bone Health reviewed importance of calcium, vitamin D and exercise in maintaining bone health. Neurocognitive effects: At risks for neurocognitive effects and with learning issues in school. His difficulties in math and writing (particularly sentence structure) are continuing. Discussed possiblereferral for more detailed neuropsych testing, and will make referral. Liver, kidney toxicity: At risk for liver and kidney toxicity secondary to high dose chemotherapy. Obtain comprehensive metabolic panel annually (today). Secondary malignancy. There is the small risk for secondary leukemias or myelodysplasia secondary toetoposide exposure. CBC with differential obtained today, pending. Obtain CBC with differential at next visit in 1 year. Fertility: Discussed possible effect of chemotherapy on fertility. Usual recommendation is not to doblood testing at this time. Overall, again discussed the etiology of AML, and remote likelihood of inherited issues. DISPOSITION: Will call with results of labs and ECHO. If all is normal, return to clinic in 1 year for history, physical, labs. Family aware to call with questions or concerns in the interim. Pt seen and examined in person. Discussed plan with pt's family, staff, and nursing staff. Thanks, Ar Rene MD Pedi Hem/Onc beeper [phone] documented in this encounter Plan of Treatment Upcoming Encounters Date Type Specialty Care Team Description 12/18/2022 Ancillary Procedure Cardiology 12/18/2022 Office Visit Cardiology Bg Kelsey MD 111 [facility], [facility], [facility] 1 [place], [place] [address] (Wo rk) documented as of this encounter Procedures Procedure Name Priority Date/Time Associated Comments Diagnosis ECG REPORT - SCANNED 12/13/2015 15:05 EST COMPLETE BLOOD COUNT Routine 12/12/2015 10:28 AML (acute myelo id Results for this AND DIFFERENTIAL EST leukemia) in procedure a re in remission ([facility]) the resu lts section. COMPREHENSIVE Routine 12/12/2015 10:28 AML (acute myeloid Resu lts for this METABOLIC PANEL (CMP) EST leukemia) in proced ure are in remission ([facility]) the resu lts section. documented in this encounter Results COMPREHENSIVE METABOLIC PANEL (CMP) (12/12/2015 10:28 EST) Pathologist Sig nature Potassium 4.3 3.3 - 4.6 mEq/L [facility] Sodium 141 136 - 145 mEq/L [facility] Chloride 103 96 - 110 mEq/L [facility] CO2 29 24 - 32 mEq/L [facility] Total Alkaline 202 178 - 455 U/L [facility] Phosphatase LABOR[facility]ORY SERVICES Bilirubin, Total 0.8 <1.0 mg/dl [facility] AST 28 15 - 40 U/L [facility] ALT 28 <56 U/L [facility] Albumin 4.5 3.7 - 5.6 g/dl [facility] Total Protein 7.1 6.3 - 8.6 g/dl [facility] Creatinine 0.66 0.46 - 0.81 [facility] mg/dl [facility] GFR, Calculated Age <18 ml/min/1.73m2 [facility] BUN 15 7 - 17 mg/dl [facility] Calcium 9.5 8.8 - 10.6 [facility] mg/dl [facility] Calculated Calcium 9.4 8.8 - 10.6 [facility] mg/dl [facility] Glucose, Serum 91 70 - 100 mg/dl [facility] Fasting? Unknown [facility] Specimen Blood specimen (specimen) - Blood Performing Organization Address City/State/ZIP Code Phon e Number [facility] [address] [place] [address] SERVICES HEMAGRAM AND DIFFERENTIAL (12/12/2015 10:28 EST) WBC 6.10 4.5 - 13.0 [facility] K/cm LABORATORY SERVICES RBC 4.96 4.50 - 5.30 [facility] M/[facility] Hemoglobin 14.3 13.0 - 16.0 [facility] gm/dl LAB[facility]ORY [facility] HCT 40.9 37.0 - 49.0 % [facility] MCV 83 78 - 98 fl [facility] MCH 28.8 pg [facility] MCHC 35.0 gm/dl [facility] RDW-CV 12.9 % [facility] RDW-SD 38.5 fl [facility] PLT 191Comment: Note 156 - 312 [facility] new reference K/[facility] LABORATORY range effective SERVICES 11/20/15 MPV 10.2Comment: Note fl [facility] new reference LABORATORY range effective SERVICES 11/20/15 Neutrophils 43.4 % [facility] Lymphocytes 46.6 % [facility] Monocytes 8.5 % [facility] Eosinophils 1.0 % [facility] Basophils 0.3 % [facility] Immature Grans 0.2 % [facility] ABS Neutrophils 2.65 K/cmm [facility] ABS Lymphs 2.84 K/cmm [facility] ABS Monocytes 0.52 K/cmm [facility] ABS Eosinophils 0.06 K/cmm [facility] ABS Basophils 0.02 K/cmm [facility] ABS Immature Grans 0.01 K/cmm [facility] Type of Diff: Automated [facility] Specimen Blood specimen (specimen) - Blood Performing Organization Address City/State/ZIP Code Phon e Number [facility] [address] [place] [address] SERVICES documented in this encounter Visit Diagnoses Diagnosis AML (acute myeloid leukemia) in [facility] ([facility]) (HCC) - Primary Acute myeloid leukemia in remission History of chemotherapy Personal history of antineoplastic chemo therapy Learning difficulty Unspecified delay in development documented in this encounter Orders Procedures Count Last Ordered Date First Ordered Date ECG REPORT - SCANNED 1 12/13/2015 documented in this encounter Care Teams Variety Saw Operator Relationship Specialty Start Date End Date Bernard Newman MD PCP - General 10/21/[address] [place] [address] [address] [facility] [address] Sully Baldwin NP Nurse Practitioner 09/05/[address] [place] [phone] documented as of this encounter
--- OUTSIDE RECORDS SUMMARY | 2022-05-10 08:28 | XMS_ITS | Encounter Summary ---
:2000 Author Organization [facility] Address [address] [place] [address] Care Team Providers Name Role Phone Randell Baldwin REVIEW MANAGER Unavailable Bernard Newman MD Primary Care Provider [phone] Reason for Visit Reason Comments Cardiac Testing Encounter Details Date Type Department Care Team Description 04/25/2020 Nurse Only [facility], Cardiology AML (acu te myeloid leukemia) in remission ([facility]) (Primary Dx); [facility] Pediatric Pedi History o f chemotherapy; Cardiology - Main History of antineoplastic chemotherapy; [place]eger Acute myeloid leukemia in re mission ([facility]) [address] [place] [address] Social History Tobacco Use Types [...] Sign Reading Time Taken Comments Blood Pressure 114/66 04/25/2020 1217 EDT Pulse - - Temperature - - Respiratory Rate - - Oxygen Saturation - - Inhaled Oxygen Concentration - - Weight 84.1 kg (185 lb 6.5 oz) 04/25/2020 1217 EDT Height 184.1 cm (6' 0.48) 04/25/2020 1217 EDT Body Mass Index 24.81 04/25/2020 1217 EDT documented in this encounter Functional Status [...] as of this encounter Progress Notes Francesca Tan RN - 04/25/2020 1200 EDT Diana here for an ekg & echo due to history of AML in remission & chemotherapy. Ekg done & echo being done now. documented in this encounter Plan of Treatment Upcoming Encounters Date Type Specialty Care Team Description 12/18/2022 Ancillary Procedure Cardiology 12/18/2022 Office Visit Cardiology Bg Kelsey MD 111 [facility] [address] [place] [phone] (Wo rk) documented as of this encounter Procedures Procedure Name Priority Date/Time Associated Diagnosis Comme nts ECG REPORT - 04/25/2020 12:54 SCANNED EDT EKG 12-LEAD Routine 04/25/2020 12:11 History of Results for this EDT antineoplastic procedure are in chemotherapy the results Acute myeloid leukemia secti on. in remission ([facility]) documented in this encounter Results EKG 12-LEAD (04/25/2020 12:11 EDT) Specimen Narrative [facility] EKG - 04/25/2020 12:4 9 EDT ? [facility] Pediatrics ? Test Date: ?2020-04-25 Pat Name: ? DIANA ROSS ? Department: ?? [id number] ? Room: ? Gender: ? Male ? Resource Specialist: ?? [id number] : ?2000 ? Requested By: HANNAHMariia RANDELL M Order Number: [id number] ? Reading MD: ?? MABEL CARLOS MD ? Measurements Intervals ?Ringle ? Rate: ? 62 ? P: ?76 MD: ? 165 ?QRS: ?79 QRSD: ? 81 ? T: ?64 QT: ? 386 ? QTc: ?392 ? Interpretive Statements SINUS RHYTHM Normal Ringle Normal ECG, including ventricular forces and intervals. Compared to ECG 01/13/2018 09:52:01 No significant changes I reviewed the tracing and have either a greed or edited the findings in this report. Electronically Signed On 04-25-20 12:49:45 EDT by MABEL CARLOS MD. Procedure Note Mabel Carlos MD - 04/25/2020 [facility] Pediatrics Test Date: 2020-04-25 Pat Name: DIANA ROSS Department: [facility] Fred Room: Gender: Male Resource Specialist: [id number] : 2000 Requested By: DANIEL Viveros Order Number: [id number] Reading MD: Hanh CARLOS MD Measurements Intervals Ringle Rate: 62 P: 76 MD: 165 QRS: 79 QRSD: 81 T: 64 QT: 386 QTc: 392 Interpretive Statements SINUS RHYTHM Normal Ringle Normal ECG, including ventricular forces and intervals. Compared to ECG 01/13/2018 09:52:01 No significant changes I reviewed the tracing and have either a greed or edited the findings in this report. Electronically Signed On 04-25-20 12:49:45 EDT by MABEL CARLOS MD. Performing Organization Address City/State/ZIP Code Phon e Number [facility] EKG documented in this encounter Visit Diagnoses Diagnosis AML (acute myeloid leukemia) in [facility] n ([facility]) (HCC) - Primary Acute myeloid leukemia in remission History of chemotherapy Personal history of antineoplastic chemo therapy History of antineoplastic chemotherapy Personal history of antineoplastic chemo therapy Acute myeloid leukemia in remission ([facility]) (HCC) Acute myeloid leukemia in remission documented in this encounter Orders Procedures Count Last Ordered Date First Ordered Date ECG REPORT - SCANNED 1 04/25/2020 documented in this encounter Care Teams Belt Sewer Relationship Specialty Start Date End Date Bernard Newman MD PCP - General 10/21/13 [place] [phone] Randell Baldwin, REVIEW MANAGER Nurse Practitioner 09/05/[address] [place] [phone] documented as of this encounter
--- OUTSIDE RECORDS SUMMARY | 2022-05-10 08:28 | XMS_ITS | Encounter Summary ---
:2000 Author Organization [facility] Address [address] [place] [address] Care Team Providers Name Role Phone Sully Baldwin FIRER MARINE Unavailable Bernard Newman MD Primary Care Provider [phone] Reason for Visit Reason Comments Cardiac Testing Cardiology (Routine) - Closed Specialty Diagnoses / Referred By Contact Referred To Contact Procedures Cardiology / Pediatric Diagnoses Acute myeloid leukemia in remission ([facility]) ([facility]) Dudley Rene MD Ep4 Pedi Cardiology Cardiology Procedures ECHOCARDIOGRAM MD ECHO HEART XTHORACIC,COMPLETE W DOPPLER [address] 7 [phone] Referral ID Status Reason Start Date Expiration Date Visits Requ ested Visits Authorized [id number] Closed 01/13/2018 1 1 Encounter Details Date Type Department Care Team Description 01/13/2018 Procedure visit [facility] Children's [facility] Unknown, Provider, Pediatric Cardiology - Augustine Snyder MD [address] [place] [address] [facility] Lexy Payan RN [address] [place] [address] [address] [place], [place] [phone] Social History Tobacco Use Types Packs/Day Years [...] 12/18/2022 Office Visit Cardiology Bg Kelsey MD [address] [place] [address] Level 1 [place], [place] [phone] (Wo rk) documented as of this encounter Visit Diagnoses Not on filedocumented in this encounter Care Teams Auto Parts Delivery Driver Relationship Specialty Start Date End Date Bernard Newman MD PCP - General 10/21/13 [place] [address] Sully Baldwin NP Nurse Practitioner 09/05/[address] [place] [phone] documented as of this encounter
--- OUTSIDE RECORDS SUMMARY | 2022-05-10 08:28 | XMS_ITS | Encounter Summary ---
:2000 Author Organization [facility] Address [address] [place] [address] Care Team Providers Name Role Phone Sully Baldwin TELECOMMUNICATION EQUIPMENT REPAIRER Unavailable Bernard Newman MD Primary Care Provider [phone] Encounter Details Date Type Department Care Team Description 12/12/2015 Results Only [facility] Children's [facility] Dudley Rene MD Pediatric Hematology & [address] [place] [address] 111 [facility] [phone] [place] [address] [phone] Social History Tobacco Use Types Packs/Day Years Used Date Never Smoker Smokeless Tobacco: Never Used Sex Assigned at Date Recorded Not on file documented as of this encounter Plan of Treatment Upcoming Encounters Date Type Specialty Care Team Description 12/18/2022 Ancillary Procedure Cardiology 12/18/2022 Office Visit Cardiology Bg Kelsey MD [address] [place] [address] Level 1 [place], [place] [phone] (Wo rk) documented as of this encounter Procedures Procedure Name Priority Date/Time Associated Diagnosis Comme nts SLIDE REQUEST Routine 12/12/2015 10:28 EST Result s for this procedure are i n the results section . documented in this encounter Results SLIDE REQUEST (12/12/2015 10:28 EST) Pathologist Sig nature Note A smear is filed in [facility] the Hematology lab LABORATORY SERVICES Specimen Blood Performing Organization Address City/State/ZIP Code Phon e Number [facility] [address] [place] [address] SERVICES documented in this encounter Visit Diagnoses Not on filedocumented in this encounter Care Teams Stave Machine Tender Relationship Specialty Start Date End Date Bernard Newman MD PCP - General 10/21/13 [place] [address] Sully Baldwin TELECOMMUNICATION EQUIPMENT REPAIRER Nurse Practitioner 09/05/10 [address] [place] [phone] documented as of this encounter
--- OUTSIDE RECORDS SUMMARY | 2022-05-10 08:28 | XMS_ITS | Encounter Summary ---
:2000 Author Organization [facility] Address [address] [place] [address] Care Team Providers Name Role Phone Sully Baldwin CAP AND STUD MACHINE OPERATOR Unavailable Bernard Newman MD Primary Care Provider [phone] Reason for Visit Reason Onset Date Comments New Patient Visit 06/12/2018 today at 2:00 Encounter Details Date Type Department Care Team Description 06/12/2018 Telephone [facility] Bg Merrill, New Patient Visit Urology - [facility] Melissa cote MD (today at 2:00) 111 [facility] [address] [phone] [facility] 5 [place] [phone] (Wo rk) Social History Tobacco [...] this encounter Miscellaneous Notes Telephone Encounter - Anila Damon - 06/12/2018 0853 EDT Reason for Call: New Patient Visit (today at 2:00) Summary/Symptoms: Per Joan, mother, Per PCP they should cancel today's appt because test results are showing they should go Endocrinology first. Please call Joan with any questions/concerns. Anila Damon 06/12/2018 9:16 documented in this encounter Plan of Treatment Upcoming Encounters Date Type Specialty Care Team Description 12/18/2022 Ancillary Procedure Cardiology 12/18/2022 Office Visit Cardiology Bg Kelsey MD 111 [facility], Level 1 [place], [place] [phone] (Wo rk) documented as of this encounter Visit Diagnoses Not on filedocumented in this encounter Care Teams Office Support Specialist Relationship Specialty Start Date End Date Bernard Nemwan MD PCP - General 10/21/13 [place] [address] Sully Baldwin, MARIE Nurse Practitioner 09/05/[address] [place] [phone] documented as of this encounter
--- OUTSIDE RECORDS SUMMARY | 2022-05-10 08:28 | XMS_ITS | Encounter Summary ---
:2000 Author Organization [facility] Address [address] [place] [address] Care Team Providers Name Role Phone Sully Baldwin SUB PRIOR Unavailable Bernard Newman MD Primary Care Provider [phone] Reason for Visit Reason Onset Date Comments Appointment Related 12/11/2018 Encounter Details Date Type Department Care Team Description 12/11/2018 [facility]phone [facility] Pediatric [address] [place] [address] Hematology & Oncology [facility] [phone] [place] [address] [place] [address] [phone] Social History Tobacco Use Types Packs/Day Years [...] this encounter Miscellaneous Notes Telephone Encounter - Evelin Bruno - 12/11/2018 0856 EST Looking to schedule next appt. She said it's a yearly one in dec or january. Thanks. documented in this encounter Plan of Treatment Upcoming Encounters Date Type Specialty Care Team Description 12/18/2022 Ancillary Procedure Cardiology 12/18/2022 Office Visit Cardiology Bg Kelsey MD [address] [place] [address], Level 1 [place], [place] [phone] (Wo rk) documented as of this encounter Visit Diagnoses Not on filedocumented in this encounter Care Teams Recyclable Materials Distributor Relationship Specialty Start Date End Date Bernard Newman MD PCP - General 10/21/13 [facility] [address] Sully Baldwin, SUB PRIOR Nurse Practitioner 09/05/[address] [place] [phone] documented as of this encounter
--- OUTSIDE RECORDS SUMMARY | 2022-05-10 08:29 | XMS_ITS | Encounter Summary ---
:[address] [facility] Address [address] [place] [address] Care Team Providers Name Role Phone Sherman King MD Primary Care Provider Sully Baldwin FAMILY AND CONSUMER SCIENCE PROFESSOR Unavailable Encounter Details Date Type Department Care Team Description 09/27/2010 Results Only [facility] Ryan Abel, Pediatric Hematology & Juliet Velasquez MD Oncology - [facility] [address] [place], [place] [phone] Social History Tobacco Use Types Packs/Day Years Used Date Never Smoker Sex Assigned at Date Recorded Not on file documented as of this encounter Plan of Treatment Upcoming Encounters Date Type Specialty Care Team Description 12/18/2022 Ancillary Procedure Cardiology 12/18/2022 Office Visit Cardiology Bg Kelsey MD 111 [facility] Level 1 [place], [place] [phone] (Wo rk) documented as of this encounter Procedures Procedure Name Priority Date/Time Associated Comments Diagnosis SLIDE REQUEST Routine 09/27/2010 13:35 Results fo r this EST procedure are i n the results section. COMPLETE BLOOD COUNT Routine 09/27/2010 13:35 Res ults for this AND DIFFERENTIAL EST procedure a re in the results section. COMPREHENSIVE Routine 09/27/2010 13:35 Results fo r this METABOLIC PANEL (CMP) EST proced ure are in the results section. documented in this encounter Results SLIDE REQUEST (09/27/2010 13:35 EST) Pathologist Sig nature Note A smear is filed in the [facility] H[facility] lab Specimen Performing Organization Address City/[facility]/ZIP Code Phon e Number [facility] [address] [place] [address] SERVICES [facility] [address] [place] [phone] COMPREHENSIVE METABOLIC PANEL (CMP) (09/27/2010 13:35 EST) Pathologist Sig nature Potassium 4.5 3.6 - 5.2 mEq/L [facility] Sodium 143 136 - 145 mEq/L [facility] Chloride 105 96 - 110 mEq/L [facility] CO2 28 24 - 32 mEq/L [facility] Total Alkaline 188 175 - 420 U/L [facility] Phosphatase Bilirubin, Total <0.5 0.0 - 1.4 mg/dl [facility] AST 33 16 - 46 U/L [facility] ALT 31 10 - 35 U/L [facility] Albumin 4.7 3.0 - 5.5 g/dl [facility] Total Protein 7.3 6.2 - 8.1 g/dl [facility] Creatinine 0.54 0.3 - 0.7 mg/dl [facility] GFR, Calculated Age <18 ml/min/1.73m2 [facility] BUN 17 7 - 18 mg/dl [facility] Calcium 9.3 8.8 - 11.1 [facility] mg/dl Calculated Calcium 9.0 8.8 - 11.1 [facility] mg/dl Glucose, Serum 86 70 - 100 mg/dl [facility] Fasting? No [facility] Specimen Blood specimen (specimen) Performing Organization Address City/State/ZIP Code Phon e Number [facility] [address] [place] [address] SERVICES [facility] [address] [place] [address] HEMAGRAM AND DIFFERENTIAL (09/27/2010 13:35 EST) Pathologist Sig nature WBC 10.53 4.5 - 13.5 K/cmm [facility] RBC 4.41 4.00 - 6.20 M/cmm [facility] Hemoglobin 13.2 11.5 - 15.5 gm/dl [facility] HCT 37.7 35.0 - 45.0 % [facility] MCV 85 77 - 95 fl [facility] MCH 29.9 pg [facility] MCHC 35.0 gm/dl [facility] PLT 222 156 - 312 K/cmm [facility] RDW-CV 13.9 % [facility] Neutrophils 56.1 % [facility] Lymphocytes 35.9 % [facility] Monocytes 6.7 % [facility] Eosinophils 1.0 % [facility] Basophils 0.3 % [facility] ABS Neutrophils 5.90 K/cmm [facility] ABS Lymphs 3.78 K/cmm [facility] ABS Monocytes 0.70 K/cmm [facility] ABS Eosinophils 0.11 K/cmm [facility] ABS Basophils 0.03 K/cmm [facility] Type of Diff: Automated [facility] Specimen Blood specimen (specimen) Performing Organization Address City/State/RUST Code Phon e Number [facility] [address] [place] [address] SERVICES [facility] [address] [place] [address] documented in this encounter Visit Diagnoses Not on filedocumented in this encounter Care Teams Advertising Executive Relationship Specialty Start Date End Date Sherman King MD PCP - General 05/24/10 07/01/12 [place] [phone] Sully Baldwin NP Nurse Practitioner 09/05/10 [address] [place] [phone] documented as of this encounter
--- OUTSIDE RECORDS SUMMARY | 2022-05-10 08:29 | XMS_ITS | Encounter Summary ---
:2000 Author Organization [facility] Address [address] [place] [address] Care Team Providers Name Role Phone Sherman King MD Primary Care Provider Sully Baldwin COMBAT SYSTEMS OPERATOR Unavailable Reason for Visit Reason Onset Date Comments Labs Only 03/14/2011 Encounter Details Date Type Department Care Team Description 03/14/2011 Orders Only [facility] [address] [place] [address] leukemia ([facility] [place]ematology [place] [address] (Primar y Dx) Oncology - [address] [address] Social History Tobacco Use Types Packs/Day Years Used Date Never Smoker Sex Assigned at Date Recorded Not on file documented as of this encounter Plan of Treatment Upcoming Encounters Date Type Specialty Care Team Description 12/18/2022 Ancillary Procedure Cardiology 12/18/2022 Office Visit Cardiology Bg Kelsey MD 111 [facility], [facility], Level 1 [place], [place] [phone] (Wo rk) documented as of this encounter Visit Diagnoses Diagnosis 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
--- OUTSIDE RECORDS SUMMARY | 2022-05-10 08:29 | XMS_ITS | Encounter Summary ---
:2000 Author Organization [facility] Address [address] [place] [address] Care Team Providers Name Role Phone Sherman King MD Primary Care Provider Sully Baldwin OTORHINOLARYNGOLOGIST Unavailable Encounter Details Date Type Department Care Team Description 12/17/2010 [facility] Orthopedics - [address] [phone] (Wo rk) Social History Tobacco Use Types Packs/Day Years Used Date Never Smoker Sex Assigned at Date Recorded Not on file documented as of this encounter Plan of Treatment Upcoming Encounters Date Type Specialty Care Team Description 12/18/2022 Ancillary Procedure Cardiology 12/18/2022 Office Visit Cardiology Bg Kelsey MD [address] [place] [address] Level 1 [place], [place] [phone] (Wo rk) documented as of this encounter Visit Diagnoses Not on filedocumented in this encounter Care Teams Clutch Inspector Relationship Specialty Start Date End Date Sherman King MD PCP - General 05/24/10 07/01/12 [place] [phone] Sully Baldwin NP Nurse Practitioner 09/05/10 [address] [place] [phone] documented as of this encounter
--- OUTSIDE RECORDS SUMMARY | 2022-05-10 08:29 | XMS_ITS | Encounter Summary ---
:2000 Author Organization [facility] Address [address] [place] [address] Care Team Providers Name Role Phone Sherman King MD Primary Care Provider Sully Baldwin WATCH CRYSTAL GRINDER Unavailable Reason for Visit Reason Onset Date Comments Medications Refill 12/06/2010 Encounter Details Date Type Department Care Team Description 12/06/2010 [facility] Medications Refill Pediatric Hematology & [address] [place] [address] Oncology [place], [place] 111 [facility] [address] [place], [place] [address] [phone] Social History Tobacco Use Types Packs/Day Years Used Date Never Smoker Sex Assigned at Date Recorded Not on file documented as of this encounter Ordered Prescriptions Prescription Sig Dispensed Refills Start Date End Date lidocaine-prilocaine Apply topically as 30 g 2 011 10/21/2013 (EMLA) cream needed for Other. Apply one hour prior to lab draw documented in this encounter Miscellaneous Notes Telephone Encounter - Wagner Manzo - 12/06/2010 0917 EST Needs a refill on the embrel cream. [facility] into the [facility], Adtflzequbkdck signed by Wagner Manzo at 12/06/2010 9:17 EST documented in this encounter Plan of Treatment Upcoming Encounters Date Type Specialty Care Team Description 12/18/2022 Ancillary Procedure Cardiology 12/18/2022 Office Visit Cardiology Bg Kelsey MD 111 [facility], [facility], Level 1 [place], [place] [phone] (Wo rk) documented as of this encounter Visit Diagnoses Not on filedocumented in this encounter Care Teams Earth Science Technician Relationship Specialty Start Date End Date Sherman King MD PCP - General 05/24/10 07/01/12 [place] [phone] Sully Baldwin, WATCH CRYSTAL GRINDER Nurse Practitioner 09/05/10 [address] [place] [phone] documented as of this encounter
--- OUTSIDE RECORDS SUMMARY | 2022-05-10 08:29 | XMS_ITS | Encounter Summary ---
:2000 Author Organization [facility] Address [address] [place] [address] Care Team Providers Name Role Phone Sully Baldwin METAL BONDING WORKER Unavailable Unknown, Provider Primary Care Provider Erika Chairez MD Primary Care Provider Unavailable Reason for Visit Reason Onset Date Comments Labs Only 07/06/2012 Encounter Details Date Type Department Care Team Description 07/06/2012 Orders Only [facility], RN AML (acute myeloid [facility] Pediatric [address] [place] [address] leukemia) in Hematology & Oncology [place], [place] [address] remission ([facility] - [place] [facility] (Primary Dx) [address] [place] [address] Social History Tobacco Use Types Packs/Day Years Used Date Never Smoker Sex Assigned at Date Recorded Not on file documented as of this encounter Plan of Treatment Upcoming Encounters Date Type Specialty Care Team Description 12/18/2022 Ancillary Procedure Cardiology 12/18/2022 Office Visit Cardiology Bg Kelsey MD 111 [facility], Level 1 [place], [place] [phone] (Wo rk) documented as of this encounter Visit Diagnoses Diagnosis 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
--- OUTSIDE RECORDS SUMMARY | 2022-05-10 08:29 | XMS_ITS | Encounter Summary ---
:2002 Author Organization [facility] Address [address] [place] [address] Care Team Providers Name Role Phone Sully Baldwin ACOUSTICAL INSTALLER Unavailable Bernard Newman MD Primary Care Provider [phone] Encounter Details Date Type Department Care Team Description 10/21/2013 Hospital Encounter [facility] - Unknown, Provider, [facility] Dudley Rene MD [address] [place] [phone] [place] [id number] Social History Tobacco Use Types Packs/Day Years Used Date Never Smoker Sex Assigned at Date Recorded Not on file documented as of this encounter Discharge Diagnoses Diagnosis 205.10 CHRONIC MYELOID LEUK NO MENTN OF HAVING ACHIEVED REMISSION[ICD-9-CM] documented in this encounter Discharge Disposition Disposition Code Departure Means Destination Auto Discharge Home documented in this encounter Plan of Treatment Upcoming Encounters Date Type Specialty Care Team Description 12/18/2022 Ancillary Procedure Cardiology 12/18/2022 Office Visit Cardiology Bg Kelsey MD [address] [facility] 1 [place], [place] [phone] (Wo rk) documented as of this encounter Procedures Procedure Name Priority Date/Time Associated Diagnosis Comme nts SLIDE REQUEST Routine 10/21/2013 14:31 EST Result s for this procedure are i n the results section . documented in this encounter Results SLIDE REQUEST (10/21/2013 14:31 EST) Pathologist Sig nature Note A smear is filed in the [facility] Specimen Performing Organization Address City/State/ZIP Code Phon e Number [facility] [address] [place] [address] SERVICES [facility] [address] [place] [address] documented in this encounter Visit Diagnoses Not on filedocumented in this encounter Care Teams Egg Smeller Relationship Specialty Start Date End Date Bernard Newman MD PCP - General 10/21/[address] [place] [address] Sully Baldwin, ACOUSTICAL INSTALLER Nurse Practitioner 09/05/10 [address] [place] [address] documented as of this encounter
--- OUTSIDE RECORDS SUMMARY | 2022-05-10 08:29 | XMS_ITS | Encounter Summary ---
:2002 Author Organization [facility] Address [address] [place] [address] Care Team Providers Name Role Phone Sully Baldwin DIMENSION STONE QUARRY SUPERVISOR Unavailable Erika Chairez MD Primary Care Provider Unavailable Reason for Visit Reason Comments Follow-up AML, Off therapy 10/2008 Encounter Details Date Type Department Care Team Description 07/07/2012 Office Visit [facility] Sully Baldwin NP Health education/counseling; Hospital Pediatric [address] [place] [address] history of chemotherapy; Hematology & [address] AML (acute myeloid leukemia) in [facility] ([facility]); Oncology - [place], [place] Learning d [place] [phone] [place] [address] [place] [address] [phone] Social History Tobacco Use Types Packs/Day Years Used Date Never Smoker Sex Assigned at Date Recorded Not on file documented as of this encounter Last Filed Vital Signs Vital Sign Reading Time Taken Comments Blood Pressure 109/61 07/07/2012 1328 EDT Pulse 86 07/07/2012 1328 EDT Temperature 36.7 ??C (98.1 ??F) 07/07/2012 1328 EDT Respiratory Rate - - Oxygen Saturation - - Inhaled Oxygen Concentration - - Weight 53.5 kg (117 lb 15.1 oz) 07/07/2012 1328 EDT Height 151.9 cm (4' 11.8) 07/07/2012 1328 EDT Body Mass Index 23.19 07/07/2012 1328 EDT documented in this encounter Patient Instructions Patient InstructionsSully Baldwin NP - 07/07/2012 14:07 EDT Call Pediatric Hematology/Oncology 24 hours a [...] medications with you to your next visit documented in this encounter Progress Notes Sully Baldwin NP - 07/09/2012 9871 EDT Chief Complaint Patient presents with ??? Follow-up AML, Off therapy 10/2008 HISTORIAN: Mother and patient. HISTORY OF PRESENT ILLNESS: Jaswinder Ross is an 12 y.o. 2 m.o. 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 He was enrolled on the [facility] protocol AAML 0531 and was randomized to the experimental gemtuzumab arm. 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 He tolerated therapy very well with the expected complications of myelosuppression. He completed therapy in 10/2008 and remains in his first remission. INTERVAL HISTORY: Since his last visit 4 months ago, Jaswinder continues to do well at home. He has had no significant injuries, accidents or hospitalizations. Immunizations are UTD per parent. He is very active, energetic and has an excellent appetite. Denies bruising, bleeding or petechiae. He is playing soccer this fall. He is in the 4th grade this year with an IEP in place for extra assistance in math. He has had neurocognitive testing previously at school that showed problems in processing speed,math, attention, memory and fine motor (writing). His mother notes that he has difficulty getting his thought on paper, but has no difficulty verbalizing ideas. His obsessive compulsive behaviors remain, but have improved somewhat. He is here today for follow up, 3 years 8 months off therapy for AML. Past Medical History Diagnosis Date ??? Complication deliv NEC-antepar gestational diabetes ??? 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 WBC 49,000, TESTER SEMICONDUCTOR PACKAGES negative, testicles negative. 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 Completed therapy 10/21/2008. ??? 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 Dry skin dermatitis 11/2010 Past Surgical History Procedure Date ??? Central venous catheter 05/2008 Double lumen broviac catheter removed 12/2008 ??? Pr create eardrum opening,gen anesth Current Outpatient Prescriptions Medication Sig Dispense Refill ??? lidocaine-prilocaine (EMLA) cream Apply topically as needed for Other. Apply one hour prior to lab draw 30 g 2 Allergies Allergen Reactions ??? Ambisome (Amphotericin B Liposome) hypotension ??? Voriconazole Rash FAMILY HISTORY: No change in family history since last visit on 10/24/2011. SOCIAL HISTORY: Social history as noted above. Lives with his parents in [place], [place].He is in the 4th grade this year. REVIEW OF SYSTEMS: General: No fever, night sweats, weight loss or malaise. No light-headedness/dizziness. HEENT: No headaches. No vision or hearing complaints. No mouth sores or throat pain. Vague complaints of ringing in left ear today. Respiratory: No cough or shortness of breath. Cardiovascular: No palpitations, chest pain, orthopnea. No edema. GI: No nausea, vomiting, constipation, diarrhea. : No dysuria Heme: No bleeding, bruising, petechiae. Lymph: No lymphadenopathy Skin: Dry rash around mouth/lips. No lesions or jaundice. Musculoskeletal: No myalgias, arthralgias. Neuro: No weakness, paresthesias. Psych: Continues to have obsessive compulsive type behaviors, but improved. Endocrine: No polyuria/polydipsia. Psych: Continues with obsessive compulsive type behaviors, better controlled at school than at home. Physical Exam: BP 109/61 Pulse 86 Temp(Src) 36.7 ??C (98.1 ??F) (Tympanic) Ht 151.9 cm (59.8) Wt 53.5 kg (117 lb 15.1 oz) BMI 23.19 kg/m2 General: Well developed, well nourished, no acute distress. Very cooperative with examination. Talkative and interactive. Eyes: PERRLA, EOMI, sclera anicteric. Ears: Left TM with mild erythema on bottom edge of TM/canal. Otherwise, tympanic membranes clear, non-bulging. Nose: Mucosa and turbinates pink, septum midline. Mouth: Lips pink, good dentition. Throat: Oral mucosa pink and moist. No ulcerations, exudates. + 2 tonsil on left, + 1 tonsil on right without exudates. Neck: No thyromegaly. Chest: Old well healed chest scar from previously removed central line. Resp: Clear to auscultation, no crackles, wheezes. CV: Regular S1, S2, no murmur. Peripheral perfusion normal. No edema. Abdomen: Soft non tender, + BS, No HSM Male : Deferred. Lymph: No cervical, supraclavicular, axillary, inguinal lymphadenopathy. Skin: Dry rash surrounding lips/mouth. Otherwise skin without rashes. 1 cm firm mass (more difficultto appreciate on examination today) on right tibia without pain with deep palpation. Neurologic: Cranial nerves II - X11 intact. Deep tendon reflexes 2+ bilaterally. Cerebellar good finger to nose. Strength 5/5 upper & lower extremities. Musculo: Gait coordinated and smooth. No misalignment, defects, deformities. Gomez forward bend testnegative. Able to toe and heel walk. Able to obtain deep squat and rise to standing position withoutbracing. LABORATORY DATA: 07/07/2012 13:06 WBC 7.48 RBC 4.25 Hemoglobin 12.7 HCT 35.4 MCV 83 MCH 29.9 MCHC 35.8 PLT 211 RDW-CV 13.8 Neutrophils 44.3 Lymphocytes 43.3 Monocytes 10.7 Eosinophils 1.4 Basophils 0.3 ABS Neutrophils 3.31 ABS Lymphs 3.24 ABS Monocytes 0.80 ABS Eosinophils 0.10 ABS Basophils 0.02 IMPRESSION: Jaswinder is an 12 y.o. 2 m.o. male with a history of AML, treated per [id number] protocol with intensive chemotherapy including gemtuzumab. Now off therapy for 3 years and 8 months in continued remission. Patient Active Problem List Diagnoses ??? Obsessive behavior ??? Compulsive behavior ??? Dry skin dermatitis ??? Personal history of chemotherapy ??? Learning difficulty ??? 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n ??? Health education/counseling ??? Osteochondroma of tibia PLAN: AML - AML 3 years 8 months off therapy. - CBC with differential obtained today within normal limits. - No signs or symptoms suggestive of disease recurrence. - Offered family participation in - Return to clinic in 4 months for history, physical examination and labs. After 4 years off therapy, will see every 6 months X 2, then yearly. Obsessive compulsive behavior - Decreased obsessive compulsive behaviors noted, but still present. - Started school today. Tends to have increased obsessive compulsive behaviors when under stress. - Family does not want referral at present time. Osteochondroma of right tibia - Seen by Dr Claros 12/2010. - 2 cm mass right tibial osteochondroma diagnosed by Dr Claros with no treatment necessary. Recommended follow up in 1 year. - Lesion appears smaller on examination. Dry skin - Dry skin surrounding mouth/lips due to frequent licking. - Dry skin on hands not present today, but usually worse in the in the winter. - Continue Eucerin cream as needed. Health education/counseling - Discussed potential late effects of therapy as outlined below. - Discussed importance for adequate calcium and vitamin D intake for strong bones and teeth. He currently has excellent calcium and vitamin D intake with 3- 4 servings of milk daily. - Reviewed growth chart. - Discussed use of sun screen and monitoring of moles for changes. - Discussed need for yearly influenza vaccine. Late Effects - Potential late effects of therapy include, but are not limited to the following: Cardiomyopathy: At risk for cardiomyopathy related to anthracycline exposure. Jaswinder received 492 mg/m2 of anthracyclines throughout his therapy. The maximum lifetime dose of anthracyclines is 500 mg/m2, placing him at higher risk for cardiotoxicity. Recommend echocardiograms & EKG's performed on a yearly basis. Last on 02/2012. Due 02/2013. Neurocognitive effects: At risks for neurocognitive effects secondary to intrathecal therapy. Jaswinder has known deficits in math and writing. IEP in place and he is receiving special education assistance in math. Reads at grade level. Liver, kidney toxicity: At risk for liver and kidney toxicity secondary to high dose chemotherapy. Obtain comprehensive metabolic panel yearly. Secondary malignancy. There is the small risk for secondary leukemias related to etoposide exposure. CBC with differential obtained today within normal limits. Obtain CBC with differential at next visit in 4 months. DISPOSITION: Return to clinic in 4 months for history, physical, labs. Family aware to call with questions or concerns in the interim. I spent a total of 30 minutes in face to face time with this patient today and 20 minutes of that time was spent counseling the patient on late effects of therapy and health education as noted above. Signed Sully Baldwin [facility] Pediatric Hematology/Oncology documented in this encounter Plan of Treatment Upcoming Encounters Date Type Specialty Care Team Description 12/18/2022 Ancillary Procedure Cardiology 12/18/2022 Office Visit Cardiology Bg Kelsey MD 111 [facility] 1 [place], [place] [phone] (Wo rk) documented as of this encounter Visit Diagnoses Diagnosis Health education/counseling Counseling NOS Personal history of chemotherapy Personal history of antineoplastic chemo therapy 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 ([facility]) (HCC) Acute myeloid leukemia in remission Learning difficulty Unspecified delay in development documented in this encounter Care Teams Gin Clerk Relationship Specialty Start Date End Date Erika Chairez MD PCP - General 07/07/12 05/05/13 Sully Baldwin DIMENSION STONE QUARRY SUPERVISOR Nurse Practitioner 09/05/10 [address] [place] [address] documented as of this encounter
--- OUTSIDE RECORDS SUMMARY | 2022-05-10 08:29 | XMS_ITS | Encounter Summary ---
:[address] [facility] Address [address] [place] [address] Care Team Providers Name Role Phone Sherman King MD Primary Care Provider Sully Baldwin BRUSHER Unavailable Reason for Visit Reason Comments Follow-up AML, off therapy 3 years & 4 months Encounter Details Date Type Department Care Team Description 03/04/2012 Office Visit [facility] Sully Baldwin NP Personal history of chemotherapy; Hospital Pediatric [address] [place] [address] AML ([place] myeloid leukemia) in remission ([facility]); Hematology & [place] Obsessive behavior; Oncology - [place], [place] Compulsive behavior; [place] [phone] Dry skin dermatitis; [address] [place] [address] Learning difficulty; [place], [place] Health education/counseling; [address] Osteochondroma of tibia [phone] Social History Tobacco Use Types Packs/Day Years Used Date Never Smoker Sex Assigned at Date Recorded Not on file documented as of this encounter Last Filed Vital Signs Vital Sign Reading Time Taken Comments Blood Pressure 101/57 03/04/2012 1300 EDT Pulse 70 03/04/2012 1300 EDT Temperature 36.6 ??C (97.9 ??F) 03/04/2012 1300 EDT Respiratory Rate - - Oxygen Saturation - - Inhaled Oxygen Concentration - - Weight 47.5 kg (104 lb 11.5 oz) 03/04/2012 1300 EDT Height 149.8 cm (4' 10.98) 03/04/2012 1300 EDT Body Mass Index 21.17 03/04/2012 1300 EDT documented in this encounter Patient Instructions Patient InstructionsSully Baldwin NP - 03/04/2012 13:44 EDT Call Pediatric Oncology Office at [phone] for any questions or concerns. documented in this encounter Progress Notes Sully Baldwin NP - 03/04/2012 6797 EDT Chief Complaint Patient presents with ??? Follow-up AML, off therapy 3 years & 4 months HISTORIAN: Mother and patient. HISTORY OF PRESENT ILLNESS: Jaswinder Ross is an 11 y.o. 10 m.o. male diagnosed with acute myelocytic leukemia [...] had no significant injuries, accidents or hospitalizations. He has received most of his booster immunizations through his PMD, but still requires a few immunizations to complete boosters of all immunizations received prior to therapy. He is very active, energetic and has an excellent appetite. He participates in karate 3 nights per week. He is doing well in school with an IEP in place for math. He continues to have obsessive compulsive behaviors that he is able to control for the most part at school, but his mother sees the behaviors frequently at home, but she feels that his behaviors have improved. He is seen today for follow up, more than 3 years off therapy for AML. Past Medical History Diagnosis Date ??? Complication deliv NEC-antepar gestational diabetes ??? 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 WBC 49,000, LEATHER CLEANER negative, testicles negative. Chromosomes t(8:21), (q22:q22), 9q [...] noted above. Lives with his parents in [place], [place].He is in the 3rd grade. REVIEW OF SYSTEMS: General: No fever, night sweats, weight loss or malaise. No light-headedness/dizziness. HEENT: No headaches. No vision or hearing complaints. No mouth sores or throat pain. Nasal congestion with post nasal drip with cold symptoms periodically throughout the winter. Resolve without issues. Respiratory: No cough or shortness of breath. Cardiovascular: No palpitations, chest pain, orthopnea. No edema. GI: No nausea, vomiting, constipation, diarrhea. : No dysuria Heme: No bleeding, bruising, petechiae. Lymph: No lymphadenopathy Skin: Dry rash on bilateral hands - responds well to Eucerin cream.. No lesions or jaundice. Musculoskeletal: No myalgias, arthralgias. Neuro: No weakness, paresthesias. Psych: Continues to have obsessive compulsive type behaviors, mostly at home. He is able to identifywhen the behavior is happening. Endocrine: No polyuria/polydipsia. Psych: Continues with obsessive compulsive type behaviors, better controlled at school than at home as noted above in HPI. Physical Exam: BP 101/57 Pulse 70 Temp(Src) 36.6 ??C (97.9 ??F) (Tympanic) Ht 149.8 cm (58.98) Wt 47.5 kg (104 lb 11.5 oz) BMI 21.17 kg/m2 General: Well developed, well nourished, no acute distress. Very cooperative with examination. Talkative and interactive. Eyes: PERRLA, EOMI, sclera anicteric. Ears: Tympanic [...] tender, + BS, No HSM Male : Testicles soft and smooth 2 mL bilaterally. Red stage 2. Lymph: No cervical, supraclavicular, axillary, inguinal lymphadenopathy. Skin: Dry rash bilateral hands. Otherwise skin without rashes. 2 cm firm mass (but not as noticeableas previous examination) on right tibia without pain with deep palpation. Neurologic: Cranial nerves II - X11 intact. Deep tendon reflexes 2+ bilaterally. Cerebellar good finger to nose. Strength 5/5 upper & lower extremities. Musculo: Gait coordinated and smooth. No misalignment, defects, deformities. Gomez forward bend testnegative. Able to toe and heel walk. Able to obtain deep squat and rise to standing position withoutbracing. LABORATORY DATA: 03/04/2012 12:53 WBC 9.56 RBC 4.54 Hemoglobin 13.1 HCT 38.1 MCV 84 MCH 28.9 MCHC 34.4 PLT 247 RDW-CV 14.1 Neutrophils 46.8 Lymphocytes 43.7 Monocytes 7.2 Eosinophils 1.7 Basophils 0.6 ABS Neutrophils 4.47 ABS Lymphs 4.17 ABS Monocytes 0.69 ABS Eosinophils 0.16 ABS Basophils 0.06 IMAGING DATA: 03/04/2012 Echocardiogram: Normal left ventricular size, wall thickness and systolic function. No significant mitral regurgitation or aortic regurgitation. No intracardiac masses seen. Compared with last study, interval change in left ventricular size consistent with change in body surface area. IMPRESSION: Jaswinder is an 11 y.o. 10 m.o. male with a history of AML, treated per [id number] protocol with intensive chemotherapy including gemtuzumab. Now off therapy for 3 years and 4 months in continued remission. Patient Active Problem List Diagnoses ??? Obsessive behavior ??? Compulsive behavior ??? Dry skin dermatitis ??? Personal history of chemotherapy ??? Learning difficulty ??? 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n ??? Health education/counseling ??? Osteochondroma of tibia PLAN: 1. AML - AML 3 years 4 months off therapy. - CBC with differential obtained today within normal limits. - No signs or symptoms suggestive of disease recurrence. - Return to clinic in 4 months for history, physical examination and labs. Will see in 4 months X 2,then every 6 months X 2, then yearly. 2. Obsessive compulsive behavior - Doing well at school, but continues to exhibit behaviors of obsessive compulsive disorder when under stress. Symptoms usually controlled well at school with more behaviors exhibited at home. - Previous referral offered, but family did not follow through to make appointment. - Family dose not want referral at present time. 3. Osteochondroma of right tibia - Seen by Dr Claros 12/2010. - 2 cm mass right tibial osteochondroma diagnosed by Dr Claros with no treatment necessary. Follow upin 1 year recommended. - Over due for recommended follow up. Family will make appointment with Dr Claros. 4. Dry skin - Worsens in the winter. Was less severe with mild winter this year. - Continue Eucerin cream as needed. 5. Health education/counseling - Discussed need for appointment with PMD for complete booster immunizations post chemotherapy. - Discussed new guidelines/recommendations for boys > age 9 to receive Gardasil vaccination. Recommended discussion with PMD. - Discussed potential late effects of therapy as outlined below. - Discussed importance for adequate calcium and vitamin D intake for strong bones and teeth. He currently has excellent calcium and vitamin D intake with 3- 4 servings of milk daily. - Discussed healthy diet with at least 5 servings of fruits and vegetables, limiting concentrated sweets, juice and soda in diet. Discussed importance of exercise and limiting screen time. 6. Late Effects - Potential late effects of therapy include, but are not limited to the following: Cardiomyopathy: At risk for cardiomyopathy related to anthracycline exposure. Jaswinder received 492 mg/m2 of anthracyclines throughout his therapy. The maximum lifetime dose of anthracyclines is 500 mg/m2, placing him at higher risk for cardiotoxicity. Therefore, he should have echocardiograms & EKG's performed on a yearly basis. Echocardiogram obtained at today's visit with no change in functionnoted over the past year. Continue yearly echocardiograms. Neurocognitive effects: At risks for neurocognitive effects [...] the interim. I spent a total of 40 minutes in face to face time with this patient today and 30 minutes of that time was spent counseling the patient on late effects of therapy and health education as noted above. Signed Sully [facility] Pediatric Hematology/Oncology documented in this encounter Plan of Treatment Upcoming Encounters Date Type Specialty Care Team Description 12/18/2022 Ancillary Procedure Cardiology 12/18/2022 Office Visit Cardiology Bg Kelsey MD [address] [place] [address], Level [address] [place], [place] [phone] (Wo rk) documented as of this encounter Visit Diagnoses Diagnosis Personal history of chemotherapy Personal history of antineoplastic chemo therapy [facility] (HCC) Acute myeloid leukemia in remission Obsessive behavior Obsessive-compulsive disorders Compulsive behavior Obsessive-compulsive disorders Dry skin dermatitis Contact dermatitis and other eczema due to other specified agent Learning difficulty Unspecified delay in development Health education/counseling Counseling NOS Osteochondroma of tibia Benign neoplasm of long bones of lower l imb documented in this encounter Care Teams Roller Mill Tender Relationship Specialty Start Date End Date Sherman King MD PCP - General 05/24/10 07/01/[place] [phone] Sully Baldwin NP Nurse Practitioner 09/05/[address] [place] [phone] documented as of this encounter
--- OUTSIDE RECORDS SUMMARY | 2022-05-10 08:29 | XMS_ITS | Encounter Summary ---
:2000 Author Organization [facility] Address [address] [place] [address] Care Team Providers Name Role Phone Sully Baldwin INDUCTOR TESTER Unavailable Erika Chairez MD Primary Care Provider Unavailable Encounter Details Date Type Department Care Team Description 07/07/2012 Results Only [facility] Dudley Rene MD Pediatric Hematology & [address] [place] [address] Oncology [place], [place] 111 [facility] [address] [place], [place] [address] [phone] Social History Tobacco Use Types Packs/Day Years Used Date Never Smoker Sex Assigned at Date Recorded Not on file documented as of this encounter Plan of Treatment Upcoming Encounters Date Type Specialty Care Team Description 12/18/2022 Ancillary Procedure Cardiology 12/18/2022 Office Visit Cardiology Bg Kelsey MD [address] [place] [address] 1 [place], [place] [address] (Wo rk) documented as of this encounter Procedures Procedure Name Priority Date/Time Associated Diagnosis Comme nts SLIDE REQUEST Routine 07/07/2012 13:06 EDT Result s for this procedure are i n the results section . documented in this encounter Results SLIDE REQUEST (07/07/2012 13:06 EDT) Pathologist Sig nature Note A smear is filed in the [facility] Specimen Performing Organization Address City/State/ZIP Code Phon e Number [facility] [address] [place] [address] SERVICES [facility] [address] [place] [address] documented in this encounter Visit Diagnoses Not on filedocumented in this encounter Care Teams Wire Frame Dipper Relationship Specialty Start Date End Date Erika Chairez MD PCP - General 07/07/12 05/05/13 Sully Baldwin, INDUCTOR TESTER Nurse Practitioner 09/05/10 [address] [place] [phone] documented as of this encounter
--- OUTSIDE RECORDS SUMMARY | 2022-05-10 08:29 | XMS_ITS | Encounter Summary ---
:2000 Author Organization [facility] Address [address] [place] [address] Care Team Providers Name Role Phone Sully Baldwin BUDGET ANALYST Unavailable Erika Chairez MD Primary Care Provider Unavailable Unknown, Provider Primary Care Provider Reason for Referral Cardiology (STAT) - Closed Specialty Diagnoses / Procedures Referred By Contact Refer red To Contact Diagnoses Acute myeloid leukemia in remission ([facility]) ([facility]) Brandi Kam NP Procedures EKG 12-LEAD [address] [place] [address] Referral ID Status Reason Start Date Expiration Date Visits Requ ested Visits Authorized [id number] Closed 05/06/2013 1 1 Reason for Visit Reason Onset Date Comments Labs Only 04/30/2013 Encounter Details Date Type Department Care Team Description 04/30/2013 Orders Only [facility], workforce development vice president myeloid Hospital Pediatric [address] [place] [address] leukemia in remission Hematology & Oncology [place], [place] [address] ([facility]) (Primary - Main [place] Dx) [address] [place] [address] Social History Tobacco Use Types Packs/Day Years Used Date Never Smoker Sex Assigned at Date Recorded Not on file documented as of this encounter Plan of Treatment Upcoming Encounters Date Type Specialty Care Team Description 12/18/2022 Ancillary Procedure Cardiology 12/18/2022 Office Visit Cardiology Bg Kelsey MD 111 [facility], [facility], Level 1 [place], [place] [address] (Wo rk) documented as of this encounter Procedures Procedure Name Priority Date/Time Associated Diagnosis Comme nts EKG 12-LEAD Routine 05/06/2013 13:16 EDT Acute myeloid Result s for this leukemia in remission proced ure are in the ([facility]) results section . documented in this encounter Results EKG 12-LEAD (05/06/2013 13:16 EDT) Specimen Narrative [facility] - 05/06/2013 16 :27 EDT ?[facility] ? Test Date: ?2013-05-06 Pat Name: ? DIANA ROSS ? Department: ?? Hem-Onc ? Room: ? Gender: ? M ?Equipment Manager: ?? [id number] : ?2000 ? Requested By: LESLEY PRESTON Order Number: [id number] ?Jesse PAINTING: ?? ALY FLORES MD ? Measurements Intervals ?[place] ? Rate: ? 76 ? P: ?56 [place]: ? 144 ?QRS: ?66 QRSD: ? 78 ? T: ?53 QT: ? 374 ? QTc: ?421 ? Interpretive Statements ..PEDIATRIC ECG INTERPRETATION Sinus rhythm, with sinus arrhythmia of 6 5-95/min on prolonged rhythm strip. Normal ECG, including ventricular forces and intervals. Compared to ECG of 03/04/2012 13:54:43, no significant changes Electronically Signed On 05-06-13 16:27: 30 EDT by ALY FLORES MD Procedure Note Aly Flores MD - 05/06/2013 [facility] Test Date: 2013-05-06 Pat Name: DIANA ROSS Department: Hem -Onc Room: Gender: M Equipment Manager: [id number] : 2000 Requested By: LESLEY LAMB Order Number: [id number] Reading MD: ROSHNI FLORES MD Measurements Intervals [place] Rate: 76 P: 56 [place]: 144 QRS: 66 QRSD: 78 T: 53 QT: 374 QTc: 421 Interpretive Statements ..PEDIATRIC ECG INTERPRETATION Sinus rhythm, with sinus arrhythmia of 6 5-95/min on prolonged rhythm strip. Normal ECG, including ventricular forces and intervals. Compared to ECG of 03/04/2012 13:54:43, no significant changes Electronically Signed On 05-06-13 16:27: 30 EDT by ALY FLORES MD Performing Organization Address City/State/ZIP Code Phon e Number [facility] 111 [facility] [place] [address] [facility] [address] [place], [place] [address] documented in this encounter Visit Diagnoses Diagnosis Acute myeloid leukemia in remission (HCC -CMS) (HCC) - Primary Acute myeloid leukemia in remission documented in this encounter Care Teams Roller Man Relationship Specialty Start Date End Date Erika Chairez MD PCP - General 07/07/12 05/05/13 Unknown, MD Lakshmi PCP - General 05/06/13 10/20/13 Sully Baldwin NP Nurse Practitioner 09/05/[address] [place] [phone] documented as of this encounter
--- OUTSIDE RECORDS SUMMARY | 2022-05-10 08:29 | XMS_ITS | Encounter Summary ---
:2000 Author Organization [facility] Address [address] [place] [address] Care Team Providers Name Role Phone Sully Baldwin COMMERCIAL LEASING MANAGER Unavailable Erika Chairez MD Primary Care Provider Unavailable Encounter Details Date Type Department Care Team Description 10/27/2012 Phlebotomy Only [facility] Sheltered Workshop Executive Director, AML ( acute myeloid leukemia) in remission ([facility]); - [facility] Outpatient History of chemotherapy [address] [place], [place] [phone] Social History Tobacco Use Types Packs/Day Years Used Date Never Smoker Sex Assigned at Date Recorded Not on file documented as of this encounter Plan of Treatment Upcoming Encounters Date Type Specialty Care Team Description 12/18/2022 Ancillary Procedure Cardiology 12/18/2022 Office Visit Cardiology Bg Kelsey MD 111 [facility], [facility], Level 1 [place], [place] [address] (Wo rk) documented as of this encounter Procedures Procedure Name Priority Date/Time Associated Diagnosis Comme nts DIFFERENTIAL Routine 10/27/2012 10:12 Results for this EST procedure are i n the results section. COMPLETE BLOOD COUNT Routine 10/27/2012 10:12 Res ults for this EST procedure are i n the results section. COMPLETE BLOOD COUNT Routine 10/27/2012 10:12 AML (acute myelo id AND DIFFERENTIAL EST leukemia) in remission ([facility]) History of chemotherapy COMPREHENSIVE Routine 10/27/2012 10:12 AML (acute myeloid Resu lts for this METABOLIC PANEL (CMP) EST leukemia) in proced ure are in remission (CMS-H CC) the results History of section. chemotherapy documented in this encounter Results DIFFERENTIAL (10/27/2012 10:12 EST) Pathologist Sig nature Neutrophils 38.1 % [facility] Lymphocytes 52.0 % [facility] Monocytes 7.9 % [facility] Eosinophils 1.5 % [facility] Basophils 0.5 % [facility] ABS Neutrophils 2.87 K/cmm [facility] ABS Lymphs 3.91 K/cmm [facility] ABS Monocytes 0.60 K/cmm [facility] ABS Eosinophils 0.11 K/cmm [facility] ABS Basophils 0.04 K/cmm [facility] Type of Diff: Automated [facility] Specimen Performing Organization Address [facility] Phon e Number [facility] [address] [place] [address] SERVICES [facility] [address] [place] [address] HEMAGRAM (10/27/2012 10:12 EST) Pathologist Sig nature WBC 7.53 4.5 - 13.0 K/cmm [facility] RBC 4.46 4.00 - 6.20 M/cmm [facility] Hemoglobin 12.9 11.5 - 15.5 gm/dl [facility] HCT 37.0 35.0 - 45.0 % [facility] MCV 83 77 - 95 fl [facility] MCH 28.9 pg [facility] MCHC 34.9 gm/dl [facility] PLT 188 156 - 312 K/cmm [facility] RDW-CV 14.3 % [facility] Specimen Performing Organization Address [facility] Phon e Number [facility] [address] [place] [address] SERVICES [facility] [address] [place] [address] COMPREHENSIVE METABOLIC PANEL (CMP) (10/27/2012 10:12 EST) Pathologist Sig nature Potassium 4.6 3.6 - 5.2 mEq/L [facility] Sodium 143 136 - 145 mEq/L [facility] Chloride 104 96 - 110 mEq/L [facility] CO2 26 24 - 32 mEq/L [facility] Total Alkaline 250 135 - 530 U/L [facility] Phosphatase Bilirubin, Total <0.5 0.0 - 1.4 mg/dl [facility] AST 32 16 - 46 U/L [facility] ALT 31 10 - 35 U/L [facility] Albumin 4.4 3.0 - 5.5 g/dl [facility] Total Protein 7.3 6.3 - 8.6 g/dl [facility] Creatinine 0.52 0.32 - 0.64 [facility] mg/dl GFR, Calculated Age <18 ml/min/1.73m2 [facility] BUN 14 7 - 18 mg/dl [facility] Calcium 9.2 8.8 - 11.1 [facility] mg/dl Calculated Calcium 9.2 8.8 - 11.1 [facility] mg/dl Glucose, Serum 98 70 - 100 mg/dl [facility] Fasting? NO [facility] Specimen Blood specimen (specimen) Performing Organization Address City/State/ZIP Code Phon e Number [facility] [address] [place] [address] SERVICES [facility] [address] [place] [address] documented in this encounter Visit Diagnoses Diagnosis AML (acute myeloid [facility] ([facility]) (HCC) Acute myeloid leukemia in remission History of chemotherapy Personal history of antineoplastic chemo therapy documented in this encounter Care Teams Laboratory Immunologist Relationship Specialty Start Date End Date Erika Chairez MD PCP - General 07/07/12 05/05/13 Sully Baldwin NP Nurse Practitioner 09/05/10 [address] [place] [address] documented as of this encounter
--- OUTSIDE RECORDS SUMMARY | 2022-05-10 08:29 | XMS_ITS | Encounter Summary ---
:2000 Author Organization [facility] Address [address] [place] [address] Care Team Providers Name Role Phone Sherman King MD Primary Care Provider Sully Baldwin AQUACULTURE AND FISHERIES PROFESSOR Unavailable Reason for Visit Reason Comments Follow-up Encounter Details Date Type Department Care Team Description 12/06/2010 Office Visit [facility] NP ALL (acute lymphoblastic leukemia) ([facility]); Hospital Pediatric [address] [place] [address] Obsess ve behavior; Hematology & [address] Compulsive behavior; Oncology - [place], [place] Dry skin d ermatitis [place] [phone] [place] [address] [place] [address] [phone] Social History Tobacco Use Types Packs/Day Years Used Date Never Smoker Sex Assigned at Date Recorded Not on file documented as of this encounter Last Filed Vital Signs Vital Sign Reading Time Taken Comments Blood Pressure 104/67 12/06/2010 1500 EST Pulse 102 12/06/2010 1500 EST Temperature 36.9 ??C (98.4 ??F) 12/06/2010 1500 EST Respiratory Rate - - Oxygen Saturation - - Inhaled Oxygen Concentration - - Weight 38.5 kg (84 lb 14 oz) 12/06/2010 1500 EST Height 141 cm (4' 7.51) 12/06/2010 1500 EST Body Mass Index 19.37 12/06/2010 1500 EST documented in this encounter Patient Instructions Patient InstructionsSully Baldwin NP - 12/06/2010 15:44 EST Call Oncology office for any questions or concerns. Will follow up with génesis snider for appointment with counselor for behavior management. Will follow up with appointment with Dr Claros for evaluation of right tibia lesion. documented in this encounter Discharge Disposition Disposition Code Departure Means Destination Auto Discharge documented in this encounter Progress Notes Sully Baldwin NP - 12/07/2010 1213 EST REASON FOR VISIT: Follow up for acute myeloid leukemia. HISTORY OF PRESENT ILLNESS: Jaswinder is an 10-year-old male diagnosed with acute myelocytic leukemia on [...] complications of myelosuppression. He completed therapy in 04/2008 and has remains in first remission. Since his last visit 2 months ago, Jaswinder and his parents report that his overall health has been excellent. He has had no significant illnesses, injuries, accidents or hospitalizations. He continues to do well in school with an IEP in place for math. Neurocognitive testing performed by the school atthe end last year showed deficit in math and processing delay. He continues to be very active and energetic. He is playing hockey this winter. He has had many changes in the past year. His grandmother , requiring his mother to be away for a month, the family moved to a new home and he started at [employer]. In the past several weeks, his parents have noticed an increase in obsessive compulsive behavior traits and difficulty concentrating. They stated that he gets stuck on things. For example: while watching a movie, he continued to rewind the VCR every 30 seconds, and then started to cry because he couldn't stop doing it. Even when told to put the controller down he cried because he couldn't stop thinking about rewinding the tape. They have also noted difficulty with completing home work due to repetative writing and erasing and being unable to proceed past the first thing that he write.He is noted to have bilateral dry hands, but his parents have not observed him repeatedly washing his hands. Jaswinder is accompanied by both of his parents today who contribute to his history. FAMILY AND SOCIAL HISTORY: There have been no significant changes in his family or social history since last visit in 03/2010. He continues to live with his parents in [place], [place]. Heis in the second grade. MEDICATIONS: None. REVIEW OF SYSTEMS: General: No fever, night [...] No lymphadenopathy Skin: Dry rash on bilateral hands. No lesions or jaundice. Musculoskeletal: No myalgias, arthralgias. Neuro: No weakness, paresthesias. Endocrine: No polyuria/polydipsia. Psych: Increase in obsessive compulsive type behaviors as noted above in HPI. Physical Exam: BP 104/67 Pulse 102 Temp(Src) 36.9 ??C (98.4 ??F) (Tympanic) Ht 141 cm (55.51) Wt 38.5 kg (84 lb 14 oz) General: Well developed, well nourished, no acute distress. Very cooperative with examination today. Eyes: PERRLA, EOMI, sclera anicteric. Ears: Tympanic [...] cervical, supraclavicular, axillary, inguinal lymphadenopathy. Skin: Dry erythematous papular rash on bilateral hands. Otherwise skin without rashes. Ecchymosis with 2 cm firm mass noted on right tibia. Denies pain with deep palpation and unaware of injury to area. Neurologic: Cranial nerves II - X11 intact. Deep tendon reflexes 2+ bilaterally. Cerebellar good finger to nose. Strength 5/5 upper & lower extremities. Musculo: Gait coordinated and smooth. No misalignment, defects, deformities. Gomez forward bend testnegative. DIAGNOSTIC DATA: 12/06/2010 14:28 WBC 7.45 RBC 4.27 Hemoglobin 12.9 HCT 36.5 MCV 86 MCH 30.2 MCHC 35.3 PLT 192 RDW-CV 13.9 Type of Diff: Automated Neutrophils 43.3 Lymphocytes 42.4 Monocytes 12.5 Eosinophils 1.5 Basophils 0.3 ABS Neutrophils 3.22 ABS Lymphs 3.16 ABS Monocytes 0.93 ABS Eosinophils 0.11 ABS Basophils 0.02 IMPRESSION: Jaswinder is an 10-year-old male boy with a history of AML, treated per [id number] protocol with intensive chemotherapy including gemtuzumab. Now off therapy for 2 years in continued remission. PLAN: 1. AML: AML 2 years off therapy. CBC with differential obtained today within normal limits. He has no signs or symptoms suggestive of disease recurrence. We will continue to see Jaswinder in clinic every4 months for history, physical examination and labs. 2. Obsessive compulsive behavior. Numerous family stressors noted during the past several months. Increase in obsessive compulsive type behaviors noted at home. Family interested in seeking treatment with behavior management. With family permission, I will discuss with pediatric psychology to obtain in formation regarding possible referral to a provider in the [facility] or [place] area. 3. Right tibia lesion. Noted to have a firm mass on right tibia at diagnosis of AML in 2007. Today, continues to have a 2 cm firm non tender right tibia lesion. Area of ecchymosis noted over mass at today's visit. Unaware of trauma or injury to this area. Knee x-ray on 05/19/2008 showed no abnormality.Ultrasound on 05/19/2008 showed an area of cortical irregularity distal to the right proximal tibial metaphysis located laterally off midline with adjacent soft tissue thickening. Refer to Dr Claros for evaluation of mass. 4. Late Effects: Potential late effects of therapy include, but are not limited to the following: a. Cardiomyopathy: At risk for cardiomyopathy related to anthracycline exposure. Jaswinder received 492 mg/m2 of anthracyclines throughout his therapy. The maximum lifetime dose of anthracyclines is 500mg/m2, placing him at higher risk for cardiotoxicity. Therefore, he should have echocardiograms & EKG's performed on a yearly basis. His last echocardiogram was completed 03/2010 and showed normal LV function and normal heart anatomy. Will schedule echocardiogram and EKG at next visit in 4 months. b. Neurocognitive effects: At risks for neurocognitive effects secondary to intrathecal therapy. Jaswinder was noted to have deficits in math and processing delay with neurocognitive testing performed by the school. He is progressing well with IEP in place. Continue to monitor progress with IEP plan inplace. Parent aware of the fact that it's impossible to know whether Jaswinder would have had these difficulties regardless of the treatment he received and the importance or intervention to promote success in the school environment. c. Liver, kidney toxicity: At risk for liver and kidney toxicity secondary to high dose chemotherapy. Obtain comprehensive metabolic panel at next visit in 4 months. d. Secondary malignancy. There is the small risk for secondary leukemias related to etoposide exposure. CBC with differential obtained today within normal limits. Obtain CBC with differential. DISPOSITION: Return to clinic in 4 months for history, physical, laboratory evaluation, echocardiogram and EKG. Family aware to call with questions or concerns in the interim. documented in this encounter Procedure Notes Inpatient, MD Arslan - 01/23/2011 1124 EDTAssociated Order(s): PATHOLOGY - SCANNED documented in this encounter Plan of Treatment Upcoming Encounters Date Type Specialty Care Team Description 12/18/2022 Ancillary Procedure Cardiology 12/18/2022 Office Visit Cardiology Bg Kelsey MD 111 [facility], Level 1 [place], [place] [address] (Wo rk) documented as of this encounter Procedures Procedure Name Priority Date/Time Associated Diagnosis Comme nts PATHOLOGY - SCANNED 01/23/2011 11:24 Resu lts for this EDT procedure are i n the results section. documented in this encounter Results PATHOLOGY - SCANNED (01/23/2011 11:24 EDT) Specimen Narrative This result has an attachment that is no t available. Procedure Note Inpatient, Physician, - 01/23/2011 11 :24 EDT documented in this encounter Visit Diagnoses Diagnosis ALL (acute lymphoblastic leukemia) ([facility]) (HCC) Acute lymphoid leukemia, without mention of having achieved remission Obsessive behavior Obsessive-compulsive disorders Compulsive behavior Obsessive-compulsive disorders Dry skin dermatitis Contact dermatitis and other eczema due to other specified agent documented in this encounter Care Teams Clinching Machine Operator Relationship Specialty Start Date End Date Sherman King MD PCP - General 05/24/10 07/01/12 [place] [phone] Sully Baldwin AQUACULTURE AND FISHERIES PROFESSOR Nurse Practitioner 09/05/[address] [place] [phone] documented as of this encounter
--- OUTSIDE RECORDS SUMMARY | 2022-05-10 08:29 | XMS_ITS | Encounter Summary ---
:2000 Author Organization [facility] Address [address] [place] [address] Care Team Providers Name Role Phone Sully Baldwin LEAD TECHNICAL WRITER Unavailable Unknown, Provider Primary Care Provider Bernard Newman MD Primary Care Provider [phone] Reason for Visit Reason Onset Date Comments Orders (Non Pre-visit) 10/19/2013 Encounter Details Date Type Department Care Team Description 10/19/2013 [facility] Orders (Non Pre-visit[facility] Hospital Pediatric [address] [place] [address] Hematology & Oncology [facility] [phone] [place] [address] [place], [place] [id number] [phone] Social History Tobacco Use Types Packs/Day Years Used Date Never Smoker Sex Assigned at Date Recorded Not on file documented as of this encounter Miscellaneous Notes Telephone Encounter - Pat North RN - 10/19/2013 1003 EST Returned call to mother. He will have labs drawn here in the lab prior to appointment. Orders have been placed. Pat North RN elephone Encounter - Wagner Manzo - 10/19/2013 0844 EST Calling to have orders put in so they can get labs done prior to appointment on . Please give her a call when they have been put in. documented in this encounter Plan of Treatment Upcoming Encounters Date Type Specialty Care Team Description 12/18/2022 Ancillary Procedure Cardiology 12/18/2022 Office Visit Cardiology Bg Kelsey MD 111 [facility], [facility], Level 1 [place], [place] [phone] (Wo rk) documented as of this encounter Visit Diagnoses Diagnosis Chronic myeloid leukemia, without mentio n of having achieved remission - Primary documented in this encounter Care Teams Order Entry Specialist Relationship Specialty Start Date End Date Unknown, Provider, PCP - General 05/06/13 10/20/13 Bernard Newman MD PCP - General 10/21/[address] [place] [address] [address] [place], [place] [address] Sully Baldwin, LEAD TECHNICAL WRITER Nurse Practitioner 09/05/10 [address] [place] [phone] documented as of this encounter
--- OUTSIDE RECORDS SUMMARY | 2022-05-10 08:29 | XMS_ITS | Encounter Summary ---
:2000 Author Organization [facility] Address [address] [place] [address] Care Team Providers Name Role Phone Sully Baldwin FORMING TUBE SELECTOR Unavailable Unknown, Provider Primary Care Provider Erika Chairez MD Primary Care Provider Unavailable Reason for Visit Reason Onset Date Comments Orders (Non Pre-visit) 07/06/2012 Encounter Details Date Type Department Care Team Description 07/06/2012 Telephone [facility] Orders (Non Pre-visit) [facility] Pediatric [address] [place] [address] Hematology & Oncology [facility] [id number] [address] [facility] [place], [place] [id number] [phone] Social History Tobacco Use Types Packs/Day Years Used Date Never Smoker Sex Assigned at Date Recorded Not on file documented as of this encounter Miscellaneous Notes Telephone Encounter - Wagner Manzo - 07/06/2012 1234 EDT Coming in tomorrow for an appointment for 1:15, she would like orders submitted for labs for before that visit. documented in this encounter Plan of Treatment Upcoming Encounters Date Type Specialty Care Team Description 12/18/2022 Ancillary Procedure Cardiology 12/18/2022 Office Visit Cardiology Bg Kelsey MD [address] [place] [address] Level 1 [place], [place] [phone] (Wo rk) documented as of this encounter Visit Diagnoses Not on filedocumented in this encounter Care Teams Animal Anatomist Relationship Specialty Start Date End Date Unknown, Provider, PCP - General 07/02/12 07/06/12 Erika Chairez MD PCP - General 07/07/12 05/05/13 Sully Baldwin, FORMING TUBE SELECTOR Nurse Practitioner 09/05/10 [address] [place] [phone] documented as of this encounter
--- OUTSIDE RECORDS SUMMARY | 2022-05-10 08:29 | XMS_ITS | Encounter Summary ---
:2000 Author Organization [facility] Address [address] [place] [address] Care Team Providers Name Role Phone Sherman King MD Primary Care Provider Sully Baldwin CLAIM ADJUSTER Unavailable Encounter Details Date Type Department Care Team Description 01/21/2011 Results Only [facility] Pediatric MD Ken Hematology & Oncology [address] [place], [place] 111 [facility] [address] [place] [address] [phone] Social History Tobacco Use Types Packs/Day Years Used Date Never Smoker Sex Assigned at Date Recorded Not on file documented as of this encounter Plan of Treatment Upcoming Encounters Date Type Specialty Care Team Description 12/18/2022 Ancillary Procedure Cardiology 12/18/2022 Office Visit Cardiology Bg Kelsey MD 111 [facility], Level 1 [place], [place] [address] (Wo rk) documented as of this encounter Procedures Procedure Name Priority Date/Time Associated Diagnosis Comme nts ECHOCARDIOGRAM 03/15/2011 13:00 EDT Resul ts for this procedure are i n the results section . documented in this encounter Results ECHOCARDIOGRAM (03/15/2011 13:00 EDT) Specimen Narrative CARDIOLOGY - 03/15/2011 14:43 EDT Patient Name: DIANA ROSS Chart Number: [id number] Site Location: Date of Appt: Tuesday, March 15, 2011, 1:00 PM Pediatric Echocardiogram Report Demographics and Visit Data: : 2000. ??Age: 10y/10m/11d. ??BSA (m 2): 1.24. ??Height (cm): 143.2. ?? Weight (kg): 38.9. ??BMI (kg/m 2): 18.97 . ??Patient location: [facility]. ?? Height Centile: 98.17. ??Weight Centile: 97.49. ??Person requesting test: SARITA DERAS MD. ?? Pharmacy Tech Customer Service: Lexy Payan. ??Reason for test: COLOR PULSE DOPPLER. ?? Referral diagnosis: leukemia on therapy. ??Procedure Description: ECHOCARDIOGRAM. ?? Summary: Status post adriamycin therapy. Normal left ventricular size, wall thick ness and systolic function. No significant mitral regurgitation or a ortic regurgitation. No intracardiac masses seen. Compared with last study, interval frias e in left ventricular size consistent with change in body surface a daisy. Complete 2-dimensional study performed, with pulse/continuous wave Doppler samplings, and color flow Doppler imagin g reviewed. Findings: ?? Veins and Atria: ?? >> Normal Left Atrium >> Normal Right Atrium >> Normal Systemic Veins >> Intact Atrial Septum ?? A-V Canal: ?? >> Mitral regurgitation, ruled out No significant mitral regurgitation. ?? >> Normal Tricuspid Valve >> Normal Mitral Valve ?? Ventricles: ?? >> Global left ventricular dysfunction, ruled out Normal left ventricular size, wall thick ness and systolic function. ?? >> Left ventricular dilation or enlargem ent, ruled out >> Intact Ventricular Septum ?? Conotruncus: ?? >> Aortic regurgitation, ruled out No aortic regurgitation seen. ?? >> Normal Pulmonary Valve >> Normal Aortic Valve ?? Great Arteries: ?? >> Normal Pulmonary Artery ?? Pericardium: ?? (No abnormalities seen) ?? Other: ?? >> S/p adriamycin therapy >> Intracardiac mass, ruled out No intracardiac mass or thrombus seen. ? Measures: ?? Systemic Arterial Function: ?? Name ?Value ?Units ?Z-Score ?Min ?Max ?? Systolic BP ? 1 27 ?mmHg ? 2.21 ? 80.99 ??124.28 ?? Diastolic BP ?6 4 ? mmHg ? 1.24 ? 34.02 ??70.82 ?? Pulse Pressure ?63 .00 ?mmHg ? Mean BP ? 85.0 ? mmHg ? 0.98 ? 56.21 ??94.62 ? 2D: ?? Name ?Value ?Units ?? LV Diastolic Volume Index ? 65.32 ?ml/m 2 ? (Bullet) ?? M-Mode: ?? Name ?Value ?Units ?Z-Score ?Min ?Max ?? LV Diastolic Septal ? 0.64 ? cm ? -1.31 ?0.56 ?? 1.02 ?? Thickness LV Diastolic Dimension ?4.45 ? cm ? 0.44 ? 3.71 ?? 4.92 ?? LV Diastolic Wall ? 0.64 ? cm ? -1.06 ?0.55 ?? 0.94 ?? Thickness LV Systolic Dimension ? 3.10 ? cm ? 1.18 ? 2.22 ?? 3.32 ?? LV Fractional Shortening ?30.34 ?% ?-1.75 ?29.76 ??42.59 ?? M-Mode LV Mass / Height 2 ? 40.87 ?g/m 2 ? Relative Wall Thickness ? 0.29 ? LV Systolic Function: ?? Name ?Value ?Units ?Z-Score ?Min ?Max ?? LV Diastolic Volume ? 81.00 ?ml ? -0.6 ? 61.08 ??118.39 ?? (Bullet) LV Systolic Volume ?42.5 6 ?ml ? 1.34 ? 20.68 ??48.84 ?? (Bullet) LV Ejection Fraction ?0.47 ?-3.22 ?0.53 ?? 0.73 ?? (Bullet) 2D LV Mass ? 84.10 ?gm ? 0.48 ? 54.66 ??106.06 ?? 2D LV Volume Index ?65.3 2 ? 2D LV Mass Index ?67. 82 ?g/m 2 ? Endocardial FS ?30 .34 ?% ?-1.75 ?29.76 ??42.59 ?? FS Vs Stress ?3 0.34 ?% ? Cardiac Geometry: ?? Name ?Value ?Units ?Z-Score ?Min ?Max ?? M-Mode LV Mass ?83 .81 ?gm ? -0.73 ?66.12 ??140.93 ?? M-Mode LV Mass Index ?67.59 ?g/m 2 ? LV Diastolic Long [place] ?7.62 ? cm ? Epicardial Diameter LV Diastolic Epicardial ? 26.00 ?cm 2 ? Cross-Sectional Area LV Systolic Long [place] ? 6.16 ? cm ? Diameter LV Systolic ? 8 .29 ? cm 2 ? Cross-sectional Area LV Diastolic Long [place] ?6.75 ? cm ? 0.21 ? 5.58 ?? 7.69 ?? Diameter LV Diastolic ?1 4.40 ?cm 2 ? Cross-sectional Area LV Midwall Diastolic ?5.09 ? cm ? 0.09 ? 4.45 ?? 5.68 ?? Dimension 2D Left Atrial Diameter ? 2.30 ? cm ? M-Mode LV Mass / Height ? 58.53 ?g/m ? M-Mode LV Mass / ?31. 79 ?g/m ? 19.4 ?? 38.6 ?? Height 2.7 ?? Aorta: ?? Name ?Value ?Units ?Z-Score ?Min ?Max ?? Ao Root Diameter ?1.9 9 ? cm ? -1.27 ?1.82 ?? 2.78 ?? Stayton's Name: MARY KAY FUENTES MD Date/time of reading: Mar 15 2011 - 2:42:59 PM Report created at 2:43:21 PM on Tuesday, March 15, 2011 Report Number: Note:Study interpreted at [facility] unless otherwise noted Procedure Note 03/15/2011 Patient Name: DIANA ROSS Chart Number: [id number] Site Location: Date of Appt: Tuesday, March 15, 2011, 1:00 PM Pediatric Echocardiogram Report Demographics and Visit Data: : 2000. Age: 10y/10m/11d. BSA (m 2): 1.24. Height (cm): 143.2. Weight (kg): 38.9. BMI (kg/m 2): 18.97. Patient location: [facility]. Height Centile: 98.17. Weight Centile: 9 7.49. Person requesting test: SARITA DERAS MD. Pharmacy Tech Customer Service: Lexy Payan. Reason fo r test: COLOR PULSE DOPPLER. Referral diagnosis: leukemia on therapy. Procedure Description: ECHOCARDIOGRAM. Summary: Status post adriamycin therapy. Normal left ventricular size, wall thick ness and systolic function. No significant mitral regurgitation or a ortic regurgitation. No intracardiac masses seen. Compared with last study, interval frias e in left ventricular size consistent with change in body surface a daisy. Complete 2-dimensional study performed, with pulse/continuous wave Doppler samplings, and color flow Doppler imagin g reviewed. Findings: Veins and Atria: >> Normal Left Atrium >> Normal Right Atrium >> Normal Systemic Veins >> Intact Atrial Septum A-V Canal: >> Mitral regurgitation, ruled out No significant mitral regurgitation. >> Normal Tricuspid Valve >> Normal Mitral Valve Ventricles: >> Global left ventricular dysfunction, ruled out Normal left ventricular size, wall thick ness and systolic function. >> Left ventricular dilation or enlargem ent, ruled out >> Intact Ventricular Septum Conotruncus: >> Aortic regurgitation, ruled out No aortic regurgitation seen. >> Normal Pulmonary Valve >> Normal Aortic Valve Great Arteries: >> Normal Pulmonary Artery Pericardium: (No abnormalities seen) Other: >> S/p adriamycin therapy >> Intracardiac mass, ruled out No intracardiac mass or thrombus seen. Measures: Systemic Arterial Function: Name Value Units Z-Score Min Max Systolic BP 127 mmHg 2.21 80.99 124.28 Diastolic BP 64 mmHg 1.24 34.02 70.82 Pulse Pressure 63.00 mmHg Mean BP 85.0 mmHg 0.98 56.21 94.62 2D: Name Value Units LV Diastolic Volume Index 65.32 ml/m 2 (Bullet) M-Mode: Name Value Units Z-Score Min Max LV Diastolic Septal 0.64 cm -1.31 0.56 1 .02 Thickness LV Diastolic Dimension 4.45 cm 0.44 3.71 4.92 LV Diastolic Wall 0.64 cm -1.06 0.55 0.9 4 Thickness LV Systolic Dimension 3.10 cm 1.18 2.22 3.32 LV Fractional Shortening 30.34 % -1.75 2 9.76 42.59 M-Mode LV Mass / Height 2 40.87 g/m 2 Relative Wall Thickness 0.29 LV Systolic Function: Name Value Units Z-Score Min Max LV Diastolic Volume 81.00 ml -0.6 61.08 118.39 (Bullet) LV Systolic Volume 42.56 ml 1.34 20.68 4 8.84 (Bullet) LV Ejection Fraction 0.47 -3.22 0.53 0.7 3 (Bullet) 2D LV Mass 84.10 gm 0.48 54.66 106.06 2D LV Volume Index 65.32 2D LV Mass Index 67.82 g/m 2 Endocardial FS 30.34 % -1.75 29.76 42.59 FS Vs Stress 30.34 % Cardiac Geometry: Name Value Units Z-Score Min Max M-Mode LV Mass 83.81 gm -0.73 66.12 140. 93 M-Mode LV Mass Index 67.59 g/m 2 LV Diastolic Long [place] 7.62 cm Epicardial Diameter LV Diastolic Epicardial 26.00 cm 2 Cross-Sectional Area LV Systolic Long [place] 6.16 cm Diameter LV Systolic 8.29 cm 2 Cross-sectional Area LV Diastolic Long [place] 6.75 cm 0.21 5.58 7.69 Diameter LV Diastolic 14.40 cm 2 Cross-sectional Area LV Midwall Diastolic 5.09 cm 0.09 4.45 5 .68 Dimension 2D Left Atrial Diameter 2.30 cm M-Mode LV Mass / Height 58.53 g/m M-Mode LV Mass / 31.79 g/m 19.4 38.6 Height 2.7 Aorta: Name Value Units Z-Score Min Max Ao Root Diameter 1.99 cm -1.27 1.82 2.78 Stayton's Name: ALFREDO PAINTING,MARY KAY Juarez Date/time of reading: Mar 15 2011 - 2:42:59 PM Report created at 2:43:21 PM on Tuesday, March 15, 2011 Report Number: Note:Study interpreted at [facility] unless otherwise noted Performing Organization Address City/State/ZIP Code Phon e Number [facility] documented in this encounter Visit Diagnoses Not on filedocumented in this encounter Care Teams Signs Sales Representative Relationship Specialty Start Date End Date Sherman King MD PCP - General 05/24/10 07/01/12 [address] [place] [phone] Sully Baldwin, CLAIM ADJUSTER Nurse Practitioner 09/05/[address] [place] [phone] documented as of this encounter
--- OUTSIDE RECORDS SUMMARY | 2022-05-10 08:29 | XMS_ITS | Encounter Summary ---
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 ([facility] Hospital Pediatric [address] [place] [address] History of chemotherapy Hematology & [place] [address] Oncology - [address] [address] Social History Tobacco Use Types Packs/Day Years Used Date Never Smoker Sex Assigned at Date Recorded Not on file documented as of this encounter Plan of Treatment Upcoming Encounters Date Type Specialty Care Team Description 12/18/2022 Ancillary Procedure Cardiology 12/18/2022 Office Visit Cardiology Bg Kelsey MD 111 [facility], Level 1 [place], [place] [phone] (Wo rk) documented as of this encounter Results COMPREHENSIVE METABOLIC PANEL (CMP) (10/27/2012 10:12 EST) Pathologist [facility] Potassium 4.6 3.6 - 5.2 mEq/L [facility] [...] Organization Address City/State/ZIP Code Phon e Number [facility] [address] [place] [address] SERVICES [facility] [address] [place] [address] documented in this encounter Visit Diagnoses Diagnosis AML (acute myeloid leukemia) [facility]) (HCC) Acute myeloid leukemia in remission History of chemotherapy Personal history of antineoplastic chemo therapy documented in this encounter Care Teams Educational Sign Language Interpreter Relationship Specialty Start Date End Date Erika Chairez MD PCP - General 07/07/12 05/05/13 Sully Baldwin ENGINEERING TECHNICAL WRITER Nurse Practitioner 09/05/10 [address] [place] [phone] documented as of this encounter
--- OUTSIDE RECORDS SUMMARY | 2022-05-10 08:29 | XMS_ITS | Encounter Summary ---
:2000 Author Organization [facility] Address [address] [place] [address] Care Team Providers Name Role Phone Sully Baldwin SOLE BLACKER Unavailable Erika Chairez MD Primary Care Provider Unavailable Encounter Details Date Type Department Care Team Description 10/27/2012 Results Only [facility] Dudley Rene MD Pediatric Hematology & [address] [place] [address] Oncology [place], [place] [address] [facility] [address] [place] [address] [phone] Social History Tobacco Use Types Packs/Day Years Used Date Never Smoker Sex Assigned at Date Recorded Not on file documented as of this encounter Plan of Treatment Upcoming Encounters Date Type Specialty Care Team Description 12/18/2022 Ancillary Procedure Cardiology 12/18/2022 Office Visit Cardiology Bg Kelsey MD [address] [place] [address] 1 [place], [place] [phone] (Wo rk) documented as of this encounter Procedures Procedure Name Priority Date/Time Associated Diagnosis Comme nts SLIDE REQUEST Routine 10/27/2012 10:12 EST Result s for this procedure are i n the results section . documented in this encounter Results SLIDE REQUEST (10/27/2012 10:12 EST) Pathologist Sig nature Note A smear is filed in the [facility] Specimen Performing Organization Address City/State/ZIP Code Phon e Number [facility] [address] [place] [address] SERVICES [facility] [address] [place] [address] documented in this encounter Visit Diagnoses Not on filedocumented in this encounter Care Teams Factorer Relationship Specialty Start Date End Date Erika Chairez MD PCP - General 07/07/12 05/05/13 Sully Baldwin, SOLE BLACKER Nurse Practitioner 09/05/10 [address] [place] [phone] documented as of this encounter
--- OUTSIDE RECORDS SUMMARY | 2022-05-10 08:29 | XMS_ITS | Encounter Summary ---
:2000 Author Organization [facility] Address [address] [place] [address] Care Team Providers Name Role Phone Sherman King MD Primary Care Provider Sully Baldwin SUPERVISING NURSE Unavailable Reason for Visit Reason Onset Date Comments Appointment Related 12/12/2010 Appt date/time with Dr. Katherine Claros Encounter Details Date Type Department Care Team Description 12/12/2010 Telephone [facility] Britany Claros ppointment Related Pediatric Orthopedics - MD Rohan (Appt date/time with [address] Katherine Claros) [address] [place] [address]78 [place] [phone] (Wo rk) Social History Tobacco Use Types Packs/Day Years Used Date Never Smoker Sex Assigned at Date Recorded Not on file documented as of this encounter Miscellaneous Notes Telephone Encounter - Mallory Sanchez - 12/12/2010 1419 EST I called and confirmed appointment date/time with Dr. Katherine Claros, scheduled for 12/14 at 1:00 PM. Familywas happy to have appointment moved up from 01/09. Mallory Sanchez documented in this encounter Plan of Treatment Upcoming Encounters Date Type Specialty Care Team Description 12/18/2022 Ancillary Procedure Cardiology 12/18/2022 Office Visit Cardiology Bg Kelsey MD 111 [facility], Level 1 [place], [place] [phone] (Wo rk) documented as of this encounter Visit Diagnoses Not on filedocumented in this encounter Care Teams Seating And Mobility Technologist Relationship Specialty Start Date End Date Sherman King MD PCP - General 05/24/10 07/01/[address] [place] [phone] Sully Baldwin SUPERVISING NURSE Nurse Practitioner 09/05/10 [address] [place] [phone] documented as of this encounter
--- OUTSIDE RECORDS SUMMARY | 2022-05-10 08:29 | XMS_ITS | Encounter Summary ---
:2000 Author Organization [facility] Address [address] [place] [address] Care Team Providers Name Role Phone Sherman King MD Primary Care Provider Sully Baldwin SELF PROPELLED HOT MIX ROLLER OPERATOR Unavailable Reason for Visit Reason Onset Date Comments Appointment Related 05/16/2011 Encounter Details Date Type Department Care Team Description 05/16/2011 [facility] Pediatric 111 [facility] Hematology & Oncology [facility] [phone] [place] [address] [place] [address] [phone] Social History Tobacco Use Types Packs/Day Years Used Date Never Smoker Sex Assigned at Date Recorded Not on file documented as of this encounter Miscellaneous Notes Telephone Encounter - Steffi Winter - 05/16/2011 0954 EDT Mom had previously called regarding a change of appointment. Today I left a message and asked mom togive a call at her convenience regarding rescheduling this appointment. documented in this encounter Plan of Treatment Upcoming Encounters Date Type Specialty Care Team Description 12/18/2022 Ancillary Procedure Cardiology 12/18/2022 Office Visit Cardiology Bg Kelsey MD [address] [place] [address], [facility], Level 1 [place], [place] [phone] (Wo rk) documented as of this encounter Visit Diagnoses Not on filedocumented in this encounter Care Teams Felled Seam Operator Chainstitch Relationship Specialty Start Date End Date Sherman King MD PCP - General 05/24/10 07/01/[address] [place] [phone] Sully Baldwin NP Nurse Practitioner 09/05/[address] [place] [phone] documented as of this encounter
--- OUTSIDE RECORDS SUMMARY | 2022-05-10 08:29 | XMS_ITS | Encounter Summary ---
:2000 Author Organization [facility] Address [address] [place] [address] Care Team Providers Name Role Phone Sherman King MD Primary Care Provider Sully Baldwin PARTS DRIVER Unavailable Encounter Details Date Type Department Care Team Description 03/04/2012 Phlebotomy Only [facility] Monomer Purification Operator, Acute myeloblastic - [facility] Outpatient leukemia ([facility]) [address] [place], [place] [phone] Social History Tobacco Use Types Packs/Day Years Used Date Never Smoker Sex Assigned at Date Recorded Not on file documented as of this encounter Plan of Treatment Upcoming Encounters Date Type Specialty Care Team Description 12/18/2022 Ancillary Procedure Cardiology 12/18/2022 Office Visit Cardiology Bg Kelsey MD 111 [facility], [facility], Level 1 [place], [place] [phone] (Wo rk) documented as of this encounter Procedures Procedure Name Priority Date/Time Associated Diagnosis Comme nts COMPLETE BLOOD COUNT Routine 03/04/2012 12:53 Acute myeloblast ic Results for this AND DIFFERENTIAL EDT leukemia ([facility]) proce dure are in the results section. documented in this encounter Results HEMAGRAM AND DIFFERENTIAL (03/04/2012 12:53 EDT) Pathologist Sig nature WBC 9.56 4.5 - 13.5 K/cmm [facility] RBC 4.54 4.00 - 6.20 M/cmm [facility] Hemoglobin 13.1 11.5 - 15.5 gm/dl [facility] HCT 38.1 35.0 - 45.0 % [facility] MCV 84 77 - 95 fl [facility] MCH 28.9 pg [facility] MCHC 34.4 gm/dl [facility] PLT 247 156 - 312 K/cmm [facility] RDW-CV 14.1 % [facility] Neutrophils 46.8 % [facility] Lymphocytes 43.7 % [facility] Monocytes 7.2 % [facility] Eosinophils 1.7 % [facility] Basophils 0.6 % [facility] ABS Neutrophils 4.47 K/cmm [facility] ABS Lymphs 4.17 K/cmm [facility] ABS Monocytes 0.69 K/cmm [facility] ABS Eosinophils 0.16 K/cmm [facility] ABS Basophils 0.06 K/cmm [facility] Type of Diff: Automated [facility] Specimen Blood specimen (specimen) Performing Organization Address City/State/[facility] Code Phon e Number [facility] [address] [place] [address] SERVICES [facility] [address] [place] [address] documented in this encounter Visit Diagnoses Diagnosis 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
--- OUTSIDE RECORDS SUMMARY | 2022-05-10 08:29 | XMS_ITS | Encounter Summary ---
:2002 Author Organization [facility] Address [address] [place] [address] Care Team Providers Name Role Phone Sherman King MD Primary Care Provider Sully Baldwin TOBACCO STEMMER Unavailable Encounter Details Date Type Department Care Team Description 12/06/2010 Hospital Encounter [facility] Phillip Kam Acute myeloid - [facility] MD Singh leukemia in [address] [place] [address] [address] Roberto remission ([facility]) [facility] [id number] [place] [phone] Social History Tobacco Use Types Packs/Day Years Used Date Never Smoker Sex Assigned at Date Recorded Not on file documented as of this encounter Medications at Time of Discharge Medication Sig Dispensed Refills Start Date End Date lidocaine-prilocaine Apply topically as 30 g 2 011 10/21/2013 (EMLA) cream needed for Other. Apply one hour prior to lab draw documented as of this encounter Discharge Disposition Disposition Code Departure Means Destination Home or Self Senior Living documented in this encounter Procedure Notes Inpatient, MD Arslan - 12/06/2010 0000 ESTAssociated Order(s): PATHOLOGY - SCANNED; PATHOLOGY - SCANNED documented in this encounter Plan of Treatment Upcoming Encounters Date Type Specialty Care Team Description 12/18/2022 Ancillary Procedure Cardiology 12/18/2022 Office Visit Cardiology Bg Kelsey MD [address] [facility] Level 1 [place], [place] [phone] (Wo rk) documented as of this encounter Procedures Procedure Name Priority Date/Time Associated Comments Diagnosis PATHOLOGY - SCANNED 01/23/2011 11:24 Resu lts for this EDT procedure are i n the results section. MULTIPLE DOC ORDERS Routine 12/06/2010 14:28 Resu lts for this EST procedure are i n the results section. SLIDE REQUEST Routine 12/06/2010 14:28 Results fo r this EST procedure are i n the results section. COMPLETE BLOOD COUNT Routine 12/06/2010 14:28 Acute myeloid Re sults for this AND DIFFERENTIAL EST leukemia in procedure a re in remission (CMS-HCC) the resu lts section. documented in this encounter Results PATHOLOGY - SCANNED (01/23/2011 11:24 EDT) Specimen Narrative This result has an attachment that is no t available. Procedure Note Inpatient, Physician, - 12/06/2010 0: 00 EST SLIDE REQUEST (12/06/2010 14:28 EST) Pathologist Sig nature Note A smear is filed in the [facility] Hematology lab Specimen Performing Organization Address City/[facility]/ZIP Code Phon e Number [facility] [address] [place] [address] SERVICES [facility] [address] [place] [address] MULTIPLE DOC ORDERS (12/06/2010 14:28 EST) Multiple Doc This report contains lab res ults ordered by another provider which were collected and processed [facility] Orders simultaneously with the ord ers you requested. If you have any questions, please call Customer LAB Service at [phone]. Specimen Performing Organization Address City/[facility]/ZIP Code Phon e Number [facility] [address] [place] [address] SERVICES [facility] [address] [place] [address] HEMAGRAM AND DIFFERENTIAL (12/06/2010 14:28 EST) Pathologist Sig nature WBC 7.45 4.5 - 13.5 K/cmm [facility] RBC 4.27 4.00 - 6.20 M/cmm [facility] Hemoglobin 12.9 11.5 - 15.5 gm/dl [facility] HCT 36.5 35.0 - 45.0 % [facility] MCV 86 77 - 95 fl [facility] MCH 30.2 pg [facility] MCHC 35.3 gm/dl [facility] PLT 192 156 - 312 K/cmm [facility] RDW-CV 13.9 % [facility] Neutrophils 43.3 % [facility] Lymphocytes 42.4 % [facility] Monocytes 12.5 % [facility] Eosinophils 1.5 % [facility] Basophils 0.3 % [facility] ABS Neutrophils 3.22 K/cmm [facility] ABS Lymphs 3.16 K/cmm [facility] ABS Monocytes 0.93 K/cmm [facility] ABS Eosinophils 0.11 K/cmm [facility] ABS Basophils 0.02 K/cmm [facility] Type of Diff: Automated [facility] Specimen Blood specimen (specimen) Performing Organization Address City/State/[facility] Code Phon e Number [facility] [address] [place] [address] SERVICES [facility] [address] [place] [address] documented in this encounter Visit Diagnoses Diagnosis Acute myeloid leukemia in remission (HCC -CMS) (HCC) Acute myeloid leukemia in remission documented in this encounter Care Teams Ampoule Examiner Relationship Specialty Start Date End Date Sherman King MD PCP - General 05/24/10 07/01/[place] [phone] Sully Baldwin NP Nurse Practitioner 09/05/10 [address] [place] [phone] documented as of this encounter
--- OUTSIDE RECORDS SUMMARY | 2022-05-10 08:29 | XMS_ITS | Encounter Summary ---
:2002 Author Organization [facility] Address [address] [place] [address] Care Team Providers Name Role Phone Sherman King MD Primary Care Provider Sully Baldwin CHEERLEADING COACH Unavailable Encounter Details Date Type Department Care Team Description 08/29/2010 [facility] my eloid [facility] Hospital Pediatric Juliet Velasquez MD in remission ([facility]) Hematology & Oncology [address] [place] [address] [address] [facility] (Primary Dx) - [place], [place] [address] [facility] [place] [address] [place] [address] Social History Tobacco Use Types Packs/Day Years Used Date Never Assessed Sex Assigned at Date Recorded Not on file documented as of this encounter Progress Notes Nikki Inman - 06/19/2011 0956 EDT Addended by: NIKKI INMAN on: 06/19/2011 Modules accepted: Orders documented in this encounter Plan of Treatment Upcoming Encounters Date Type Specialty Care Team Description 12/18/2022 Ancillary Procedure Cardiology 12/18/2022 Office Visit Cardiology Bg Kelsey MD [address] [facility], Level 1 [place], [place] [phone] (Wo rk) documented as of this encounter Visit Diagnoses Diagnosis Acute myeloid leukemia in remission ([facility]) (HCC) - Primary Acute myeloid leukemia in remission documented in this encounter Care Teams Tube Drawer Relationship Specialty Start Date End Date Sherman King MD PCP - General 05/24/10 07/01/[place] [address] Sully Baldwin, CHEERLEADING COACH Nurse Practitioner 09/05/[address] [place] [phone] documented as of this encounter
--- OUTSIDE RECORDS SUMMARY | 2022-05-10 08:29 | XMS_ITS | Encounter Summary ---
:2002 Author Organization [facility] Address [address] [place] [address] Care Team Providers Name Role Phone Sherman King MD Primary Care Provider Sully Baldwin FOUNDATION DIRECTOR Unavailable Reason for Visit Reason Comments Follow-up Encounter Details Date Type Department Care Team Description 03/15/2011 Office Visit [facility] S[facility]l Baldwin NP Acute myeloid leukemia in remission ([facility]); Hospital Pediatric [address] [place] [address] ALL (ac [place] lymphoblastic leukemia) ([facility] Hematology & [place] Obsessive behavior; Oncology - [place], [place] Compulsive behavior; [place] [phone] Dry skin dermatitis [address] [place] [address] [place] [address] [phone] Social History Tobacco Use Types Packs/Day Years Used Date Never Smoker Sex Assigned at Date Recorded Not on file documented as of this encounter Last Filed Vital Signs Vital Sign Reading Time Taken Comments Blood Pressure 127/64 03/15/2011 1323 EDT Pulse 86 03/15/2011 1323 EDT Temperature 36.5 ??C (97.7 ??F) 03/15/2011 1323 EDT Respiratory Rate - - Oxygen Saturation - - Inhaled Oxygen Concentration - - Weight 38.9 kg (85 lb 12.1 oz) 03/15/2011 1323 EDT Height 143.2 cm (4' 8.38) 03/15/2011 1323 EDT Body Mass Index 18.97 03/15/2011 1323 EDT documented in this encounter Patient Instructions Patient InstructionsSully Baldwin NP - 03/15/2011 14:13 EDT Call Pediatric Hematology/Oncology 24 hours a day at or ext [phone] forthe following concerns: ?? Fever - any over 101.5 degrees F or repeatedly over 100 degrees F. ?? Pain uncontrolled with current pain regimen. ?? Mouth sores. ?? Constipation. ?? Bruising/bleeding (low platelets). ?? Tiredness (anemia). ?? Any other questions or concerns. documented in this encounter Progress Notes Sully Baldwin NP - 03/15/2011 6726 EDT REASON FOR VISIT: Follow up for acute myeloid leukemia. HISTORY OF PRESENT ILLNESS: Jaswinder Ross is an 10 y.o. 10 m.o. 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 He was enrolled on the [facility] protocol AAML 0531 and was randomized to the experimental gemtuzumab arm. 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 He tolerated therapy very well with the expected complications of myelosuppression. He completed therapy in 10/2008 and has remains in first remission. Since his last visit 3 months ago, Jaswinder continues to do well at home. He has had no significant injuries, accidents or hospitalizations. He was seen by his PMD for a sore throat with a negative strep culture and for otitis media which resolved with antibiotics. He recently has had a mild cough and clear rhinorrhea, without fever. He continues to be very active and energetic. He has an excellent appetite and is growing well. He is playing lacrosse and baseball this winter. He has had a lot of changes in his life in the past year. He started a new school in Nov of this year after the family moved to a new home. He was noted to have some deficits and additional testing was done last month. As of yet, the parents have not had a conference with the school, but one is scheduled. He continues to do well in school with an IEP in place for math. His grandmother late in the fall and his mother wasaway for an extended period. After her period away, the family noted increased obsessive compulsive behavior traits. They were provided with a referral, but did not follow through with making an appointment. His mother feels that, for the most part, he is able to control his obsessive compulsive behaviors at school and is able to release the behaviors at home. He continues to ask repeatedly for the same information and wants things just so, but his mother feels that the behaviors have improved. Jaswinder is accompanied by his mother today who contributes to the history. FAMILY AND SOCIAL HISTORY: Social history as noted above. Lives with his parents in [place], [place]. He is in the second grade. MEDICATIONS: None. REVIEW [...] No weakness, paresthesias. Endocrine: No polyuria/polydipsia. Psych: Continues with obsessive compulsive type behaviors, better controlled at school than at home as noted above in HPI. Physical Exam: BP 127/64 Pulse 86 Temp(Src) 36.5 ??C (97.7 ??F) (Tympanic) Ht 143.2 cm (56.38) Wt 38.9 kg (85 lb 12.1 oz) BMI 18.97 kg/m2 General: Well developed, well nourished, no acute distress. Very cooperative with examination. Eyes: PERRLA, EOMI, sclera anicteric. Ears: Tympanic [...] and smooth 2 mL bilaterally. Red stage 1. Lymph: No cervical, supraclavicular, axillary, inguinal lymphadenopathy. Skin: Dry rash bilateral hands. Otherwise skin without rashes. 2 cm firm mass on right tibia withoutpain with deep palpation. Neurologic: Cranial nerves II - X11 intact. Deep tendon reflexes 2+ bilaterally. Cerebellar good finger to nose. Strength 5/5 upper & lower extremities. Musculo: Gait coordinated and smooth. No misalignment, defects, deformities. Gomez forward bend testnegative. LABORATORY DATA: 03/15/2011 13:32 WBC 9.15 RBC 4.53 Hemoglobin 13.8 HCT 38.3 MCV 85 MCH 30.4 MCHC 36.0 PLT 231 RDW-CV 14.1 Type of Diff: Automated Neutrophils 39.2 Lymphocytes 50.4 Monocytes 8.4 Eosinophils 1.5 Basophils 0.5 ABS Neutrophils 3.59 ABS Lymphs 4.61 ABS Monocytes 0.77 ABS Eosinophils 0.14 ABS Basophils 0.04 IMAGING DATA: 03/15/2011 Echocardiogram: Normal left ventricular size, wall thickness and systolic function. No significant mitral regurgitation or aortic regurgitation. No intracardiac masses seen. Compared with laststudy, interval change in left ventricular size consistent with change in body surface area. IMPRESSION: Jaswinder is an 10 y.o. 10 m.o. male with a history of AML, treated per [id number] protocol with intensive chemotherapy including gemtuzumab. Now off therapy for 2 1/2 years in continued remission. PLAN: 1. AML - AML 2 1/2 years off therapy. - CBC with differential obtained today within normal limits. - No signs or symptoms suggestive of disease recurrence. - Return to clinic in 4 months for history, physical examination and labs. 2. Obsessive compulsive behavior - Numerous family stressors in past year with increase in obsessive compulsive type behaviors. - Family was provided with referral, but did not follow through to make appointment. - Offered referral again at today's visit. - Additional testing completed at school in the past month with results unknown at this time. - Family will call oncology office if they want referral. 3. Right tibia lesion - Seen by Dr Claros 12/2010. - 2 cm mass on right tibia diagnosed as osteochondroma with no treatment needed. - Follow up with Dr Claros in 1 year as recommended. 4. Late Effects - Potential late effects of [...] with neurocognitive testing performed by the school. Addition deficits noted with change to new school in November 2009. Additional testing complete at school, but results are not known by family at this point. Conference scheduled in the next few weeks. He continues to progress with IEP in place and is receiving special education assistance inmath. Liver, kidney toxicity: At risk for liver and kidney toxicity secondary to high dose chemotherapy. Obtain comprehensive metabolic panel at next visit in 4 months. Secondary malignancy. There is the small risk for secondary leukemias related to etoposide exposure. CBC with differential obtained today within normal limits. Obtain CBC with differential at next visit in 4 months. DISPOSITION: Return to clinic in 4 months for history, physical, labs. Family aware to call with questions or concerns in the interim. documented in this encounter Plan of Treatment Upcoming Encounters Date Type Specialty Care Team Description 12/18/2022 Ancillary Procedure Cardiology 12/18/2022 Office Visit Cardiology Bg Kelsey MD [address] [place] [address], [facility], Level 1 [place], [place] [phone] (Wo rk) documented as of this encounter Procedures Procedure Name Priority Date/Time Associated Comments Diagnosis SLIDE REQUEST Routine 03/15/2011 13:32 Results fo r this EDT procedure are i n the results section. COMPLETE BLOOD COUNT Routine 03/15/2011 13:32 Acute myeloid Re sults for this AND DIFFERENTIAL EDT leukemia in procedure a re in remission ([facility]-H[facility]) the resu lts section. documented in this encounter Results SLIDE REQUEST (03/15/2011 13:32 EDT) Pathologist Sig nature Note A smear is filed in the [facility] Hematology lab Specimen Performing Organization Address City/[facility] Code Phon e Number [facility] [address] [place] [address] SERVICES [facility] [address] [place] [address] HEMAGRAM AND DIFFERENTIAL (03/15/2011 13:32 EDT) Pathologist Sig nature WBC 9.15 4.5 - 13.5 K/cmm [facility] RBC 4.53 4.00 - 6.20 M/cmm [facility] Hemoglobin 13.8 11.5 - 15.5 gm/dl [facility] HCT 38.3 35.0 - 45.0 % [facility] MCV 85 77 - 95 fl [facility] MCH 30.4 pg [facility] MCHC 36.0 gm/dl [facility] PLT 231 156 - 312 K/cmm [facility] RDW-CV 14.1 % [facility] Neutrophils 39.2 % [facility] Lymphocytes 50.4 % [facility] Monocytes 8.4 % [facility] Eosinophils 1.5 % [facility] Basophils 0.5 % [facility] ABS Neutrophils 3.59 K/cmm [facility] ABS Lymphs 4.61 K/cmm [facility] ABS Monocytes 0.77 K/cmm [facility] ABS Eosinophils 0.14 K/cmm [facility] ABS Basophils 0.04 K/cmm [facility] Type of Diff: Automated [facility] Specimen Blood specimen (specimen) Performing Organization Address City/[facility]/ZIP Code Phon e Number [facility] [address] [place] [address] SERVICES [facility] [address] [place] [address] documented in this encounter Visit Diagnoses Diagnosis Acute myeloid leukemia in remission ([facility] -CMS) (HCC) Acute myeloid leukemia in remission ALL (acute lymphoblastic leukemia) (HCC- CMS) (HCC) Acute lymphoid leukemia, without mention of having achieved remission Obsessive behavior Obsessive-compulsive disorders Compulsive behavior Obsessive-compulsive disorders Dry skin dermatitis Contact dermatitis and other eczema due to other specified agent documented in this encounter Care Teams Afterschool Relationship Specialty Start Date End Date Sherman King MD PCP - General 05/24/10 07/01/[address] [place] [address] [place] [phone] Sully Baldwin FOUNDATION DIRECTOR Nurse Practitioner 09/05/[address] [place] [phone] documented as of this encounter
--- OUTSIDE RECORDS SUMMARY | 2022-05-10 08:29 | XMS_ITS | Encounter Summary ---
:2002 Author Organization [facility] Address [address] [place] [address] Care Team Providers Name Role Phone Sully Baldwin ONCOLOGY ACCOUNT SPECIALIST Unavailable Erika Chairez MD Primary Care Provider Unavailable Encounter Details Date Type Department Care Team Description 07/07/2012 [facility] [place] AML (acute myeloid Services leukemia) in re [place] ([facility] Social History Tobacco Use Types Packs/Day Years Used Date Never Smoker Sex Assigned at Date Recorded Not on file documented as of this encounter Plan of Treatment Upcoming Encounters Date Type Specialty Care Team Description 12/18/2022 Ancillary Procedure Cardiology 12/18/2022 Office Visit Cardiology Bg Kelesy MD 111 [facility], Level 1 [place], [place] [phone] (Wo rk) documented as of this encounter Procedures Procedure Name Priority Date/Time Associated Comments Diagnosis DIFFERENTIAL Routine 07/07/2012 13:06 Results for this EDT procedure are i n the results section. COMPLETE BLOOD COUNT Routine 07/07/2012 13:06 Res ults for this EDT procedure are i n the results section. COMPLETE BLOOD COUNT Routine 07/07/2012 13:06 AML (acute myelo id AND DIFFERENTIAL EDT leukemia) in remission ([facility]) documented in this encounter Results DIFFERENTIAL (07/07/2012 13:06 EDT) Pathologist Sig nature Neutrophils 44.3 % [facility] Lymphocytes 43.3 % [facility] Monocytes 10.7 % [facility] Eosinophils 1.4 % [facility] Basophils 0.3 % [facility] ABS Neutrophils 3.31 K/cmm [facility] ABS Lymphs 3.24 K/cmm [facility] ABS Monocytes 0.80 K/cmm [facility] ABS Eosinophils 0.10 K/cmm [facility] ABS Basophils 0.02 K/cmm [facility] Type of Diff: Automated [facility] Specimen Performing Organization Address City/[facility]/ZIP Code Phon e Number [facility] [address] [place] [address] SERVICES [facility] [address] [place] [address] HEMAGRAM (07/07/2012 13:06 EDT) Pathologist Sig nature WBC 7.48 4.5 - 13.0 K/cmm [facility] RBC 4.25 4.00 - 6.20 M/cmm [facility] Hemoglobin 12.7 11.5 - 15.5 gm/dl [facility] HCT 35.4 35.0 - 45.0 % [facility] MCV 83 77 - 95 fl [facility] MCH 29.9 pg [facility] MCHC 35.8 gm/dl [facility] PLT 211 156 - 312 K/cmm [facility] RDW-CV 13.8 % [facility] Specimen Performing Organization Address City/[facility]/ZIP Code Phon e Number [facility] [address] [place] [address] SERVICES [facility] [address] [place] [address] documented in this encounter Visit Diagnoses Diagnosis 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 ([facility] Acute myeloid leukemia in remission documented in this encounter Care Teams Housing Counselor Relationship Specialty Start Date End Date Erika Chairez MD PCP - General 07/07/12 05/05/13 Sully Baldwin NP Nurse Practitioner 09/05/10 [address] [place] [address] documented as of this encounter
--- OUTSIDE RECORDS SUMMARY | 2022-05-10 08:29 | XMS_ITS | Encounter Summary ---
:2002 Author Organization [facility] Address [address] [place] [address] Care Team Providers Name Role Phone Sherman King MD Primary Care Provider Sully Baldwin SAWMILL OR TIMBER YARD WORKER Unavailable Reason for Visit Reason Onset Date Comments Other 11/14/2010 Encounter Details Date Type Department Care Team Description 11/14/2010 Telephone [facility] Dudley Rene MD Other Pediatric Hematology & [address] [place] [address] [place] [address] [place] [address] [place] [address] [phone] Social History Tobacco Use Types Packs/Day Years Used Date Never Smoker Sex Assigned at Date Recorded Not on file documented as of this encounter Miscellaneous Notes Telephone Encounter - Pat North RN - 11/14/2010 1636 EST Reviewed lab results from 11/13/10 @ 1530 with mom. F/U in clinic as scheduled. Pat North RN elephone Encounter - Wagner Manzo - 11/14/2010 0853 EST Checking for lab results and updated her phone information. When I went to update the phone information it had already been done.. Please give her a call on results documented in this encounter Plan of Treatment Upcoming Encounters Date Type Specialty Care Team Description 12/18/2022 Ancillary Procedure Cardiology 12/18/2022 Office Visit Cardiology Bg Kelsey MD 111 [facility], [facility], Level 1 [place], [place] [phone] (Wo rk) documented as of this encounter Visit Diagnoses Not on filedocumented in this encounter Care Teams Composition Stone Applicator Relationship Specialty Start Date End Date Sherman King MD PCP - General 05/24/10 07/01/[address] [place] [address] Sully Baldwin, SAWMILL OR TIMBER YARD WORKER Nurse Practitioner 09/05/10 [address] [place] [phone] documented as of this encounter
--- OUTSIDE RECORDS SUMMARY | 2022-05-10 08:29 | XMS_ITS | Encounter Summary ---
:2000 Author Organization [facility] Address [address] [place] [address] Care Team Providers Name Role Phone Sherman King MD Primary Care Provider Sully Baldwin HOMEBOUND TEACHER Unavailable Encounter Details Date Type Department Care Team Description 10/24/2011 Results Only [facility] Brandi Kam NP Pediatric Hematology & [address] [place] [address] [address] [facility] [address] [place] [address] [phone] Social History Tobacco Use Types Packs/Day Years Used Date Never Smoker Sex Assigned at Date Recorded Not on file documented as of this encounter Plan of Treatment Upcoming Encounters Date Type Specialty Care Team Description 12/18/2022 Ancillary Procedure Cardiology 12/18/2022 Office Visit Cardiology Bg Kelsey MD [address] [place] [address] Level 1 [place], [place] [phone] (Wo rk) documented as of this encounter Procedures Procedure Name Priority Date/Time Associated Diagnosis Comme nts SLIDE REQUEST Routine 10/24/2011 14:50 EST Result s for this procedure are i n the results section . documented in this encounter Results SLIDE REQUEST (10/24/2011 14:50 EST) Pathologist Sig nature Note A smear is filed in the [facility] Specimen Performing Organization Address City/State/ZIP Code Phon e Number [facility] [address] [place] [address] SERVICES [facility] [address] [place] [address] documented in this encounter Visit Diagnoses Not on filedocumented in this encounter Care Teams Veneer Clipper Relationship Specialty Start Date End Date Sherman King MD PCP - General 05/24/10 07/01/12 [place] [phone] Sully Baldwin NP Nurse Practitioner 09/05/10 [address] [place] [address] documented as of this encounter
--- OUTSIDE RECORDS SUMMARY | 2022-05-10 08:29 | XMS_ITS | Encounter Summary ---
:2000 Author Organization [facility] Address [address] [place] [address] Care Team Providers Name Role Phone Sully Baldwin TREER Unavailable Erika Chairez MD Primary Care Provider Unavailable Reason for Referral Cardiology (Routine/Next Available) - Closed Specialty Diagnoses / Procedures Referred By Contact Refer red To Contact Cardiology Diagnoses History of chemotherapy 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n ([facility]) ([facility]) Dudley Rene MD [facility] 1 Ni Cardi Procedures ECHOCARDIOGRAM RI ECHO HEART XTHORACIC,COMPLETE W DOPPLER RI ECHO HEART XTHORACIC,COMPLETE, W/O DOPPLER [address] [phone] [place] [address] Referral ID Status Reason Start Date Expiration Date Visits Requ ested Visits Authorized [id number] Closed 05/06/2013 1 1 Reason for Visit Reason Onset Date Comments Surveillance 02/10/2013 Encounter Details Date Type Department Care Team Description 02/10/2013 Orders Only [facility] History of chemotherapy (Primary Dx); Hospital Pediatric [address] [place] [address] 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 ([facility]) Hematology [place] [address] Oncology - Main [place] [address] [place] [address] Social History Tobacco Use Types Packs/Day Years Used Date Never Smoker Sex Assigned at Date Recorded Not on file documented as of this encounter Plan of Treatment Upcoming Encounters Date Type Specialty Care Team Description 12/18/2022 Ancillary Procedure Cardiology 12/18/2022 Office Visit Cardiology Bg Kelsey MD 111 [facility], [facility], Level 1 [place], [place] [address] (Wo rk) documented as of this encounter Procedures Procedure Name Priority Date/Time Associated Diagnosis Comme nts ECHOCARDIOGRAM Routine 05/06/2013 12:30 EDT History of Resul ts for this chemotherapy procedure are in the AML (acute myeloid results s ection. leukemia) in remission (CMS-HCC) documented in this encounter Results ECHOCARDIOGRAM (05/06/2013 12:30 EDT) Specimen Narrative CARDIOLOGY - 05/06/2013 15:46 EDT Patient Name: DIANA ROSS Chart Number: [id number] Site Location: Date of Appt: April, 1 2:30 PM Pediatric Echocardiogram Report Demographics and Visit Data: : 2000. ??Age: 13y/0m/2d. ??Sex: M. ??BSA (m 2): 1.59. ?? Height (cm): 158. ??Weight (kg): 57. ??B IL (kg/m 2): 22.83. ?? [facility] ??Height Centile: 98.57. ?? Weight Centile: 99.35. ??Person requesti ng test: LARUEN PAINTING,DUDLEY Lo ?? Reason for test: V87.41-Personal history of antineoplastic [id number]-VMP-3-CM 205.01-Acute myelo id leukemia in rem. ?? Procedure Description: ECHOCARDIOGRAM. ? ? Summary: Status post adriamycin therapy. Normal left ventricular size, wall thick ness and systolic function. Normal appearing right ventricular size with qualitatively good right ventricular systolic function. No mitral regurgitation or aortic regurg itation and normal Doppler study of the intracardiac valves. No intracardiac masses seen. Compared with last study, there has been no significant change. Complete 2-dimensional study performed, with pulse/continuous wave Doppler samplings, and color flow Doppler imagin g reviewed. Findings: ?? Veins and Atria: ?? >> Normal Left Atrium >> Normal Right Atrium >> Normal Systemic Veins Normal venous flow in the superior vena cava and innominate vein. ?? >> Intact Atrial Septum ?? A-V Canal: ?? >> Mitral regurgitation, ruled out No mitral regurgitation or mitral valve prolapse . ?? >> Normal Tricuspid Valve Trivial tricuspid regurgitation. ?? >> Normal Mitral Valve ?? Ventricles: ?? >> Global left ventricular dysfunction, ruled out Normal left ventricular size, wall thick ness and systolic function. ?? >> Left ventricular dilation or enlargem ent, ruled out >> Normal Right Ventricle Normal appearing right ventricular size with qualitatively good right ventricular systolic function. ?? >> Intact Ventricular Septum ?? Conotruncus: ?? >> Aortic regurgitation, ruled out No aortic regurgitation seen. ?? >> Normal Pulmonary Valve Normal Doppler study. Of the pulmonary v alve and branch pulmonary arteries. ?? >> Normal Aortic Valve Tricommissural. ? Great Arteries: ?? >> Normal Pulmonary Artery >> Normal Aorta Adjacent to the aortic valve. ?? >> Normal Aortic Arch Not re-examined on this study. ? Pericardium: ?? (No abnormalities seen) ?? Other: ?? >> S/p adriamycin therapy >> Intracardiac mass, ruled out No intracardiac mass or thrombus seen. ? Measures: ?? Systemic Arterial Function: ?? Name ?Value ?Units ?Z-Score ?Min ?Max ?? Systolic BP ? 1 11 ?mmHg ? 0.61 ? 81.96 ??126.26 ?? Diastolic BP ?5 7 ? mmHg ? 0.39 ? 34.83 ??71.85 ?? Pulse Pressure ?54 .00 ?mmHg ? Mean BP ? 75.0 ? mmHg ? -0.15 ?56.87 ??96.13 ? 2D: ?? Name ?Value ?Units ?? LV Diastolic Volume Index ? 62.65 ?ml/m 2 ? (Bullet) ?? M-Mode: ?? Name ?Value ?Units ?Z-Score ?Min ?Max ?? LV Diastolic Septal ? 0.88 ? cm ? -0.15 ?0.63 ?? 1.17 ?? Thickness M-Mode LV Diastolic ? 4.86 ? cm ? 0.25 ? 4.09 ?? 5.45 ?? Dimension LV Diastolic Wall ? 0.82 ? cm ? -0.23 ?0.62 ?? 1.07 ?? Thickness M-Mode LV Systolic ?3.21 ? cm ? 0.4 ?2.44 ?? 3.72 ?? Dimension LV Fractional Shortening ?33.95 ?% ?-0.45 ?29.49 ??42.54 ?? M-Mode LV Mass / Height 2 ? 57.36 ?g/m 2 ? Relative Wall Thickness ? 0.36 ? LV Systolic Function: ?? Name ?Value ?Units ?Z-Score ?Min ?Max ?? LV Diastolic Volume ? 99.62 ?ml ? -1.28 ?86.69 ??160.54 ?? (Bullet) LV Systolic Volume ?43.4 4 ?ml ? -0.34 ?30.48 ??71.76 ?? (Bullet) LV Ejection Fraction ?0.56 ?-1.45 ?0.54 ?? 0.72 ?? (Bullet) 2D LV Mass ? 102.66 ?? gm ? -0.39 ?77.7 ?? 144.92 ?? 2D LV Volume Index ?62.6 5 ? 2D LV Mass Index ?64. 57 ?g/m 2 ? Endocardial FS ?33 .95 ?% ?-0.45 ?29.49 ??42.54 ?? FS Vs Stress ?3 3.95 ?% ? Cardiac Geometry: ?? Name ?Value ?Units ?Z-Score ?Min ?Max ?? M-Mode LV Mass ?14 3.2 ?gm ? 0.22 ? 93.31 ??201.79 ?? M-Mode LV Mass Index ?90.07 ?g/m 2 ? LV Diastolic Long Greig ?7.83 ? cm ? Epicardial Diameter LV Diastolic Epicardial ? 31.00 ?cm 2 ? Cross-Sectional Area LV Systolic Long Greig ? 5.76 ? cm ? Diameter LV Systolic ? 9 .05 ? cm 2 ? Cross-sectional Area LV Diastolic Long Greig ?6.87 ? cm ? -0.92 ?6.21 ?? 8.69 ?? Diameter LV Diastolic ?1 7.40 ?cm 2 ? Cross-sectional Area LV Midwall Diastolic ?5.68 ? cm ? 0.18 ? 4.94 ?? 6.3 ?? Dimension 2D Left Atrial Diameter ? 2.98 ? cm ? M-Mode LV Mass / Height ? 90.64 ?g/m ? M-Mode LV Mass / ?41. 65 ?g/m ? 19.4 ?? 38.6 ?? Height 2.7 ?? Aorta: ?? Name ?Value ?Units ?Z-Score ?Min ?Max ?? Ao Annulus Diameter ? 1.83 ? cm ? -0.79 ?1.61 ?? 2.34 ?? Ao Root Diameter ?2.4 0 ? cm ? -0.72 ?2.04 ?? 3.17 ?? AV Area (using Diameter) ?2.63 ? cm 2 ? Sinotubular Junction ?2.14 ? cm ? -0.43 ?1.75 ?? 2.75 ?? Diameter Ascending Ao Diameter ? 2.27 ? cm ? -0.35 ?1.82 ?? 2.92 ? Analysis Aortic Valve Doppler: ?? Name ?Value ?Units ?? AV Area (using Diameter) ?2.63 ? cm 2 ? [place]combe's Name: CHAVEZ ADRIAN MD Date/time of reading: May 06 2013 - 3:45:22 PM Report created at 3:47:02 PM on April Report Number: Note:Study interpreted at [facility] unless otherwise noted Procedure Note 05/06/2013 Patient Name: DIANA ROSS Chart Number: [id number] Site Location: Date of Appt: April, 1 2:30 PM Pediatric Echocardiogram Report Demographics and Visit Data: : 2000. Age: 13y/0m/2d. Sex: M. BSA (m 2): 1.59. Height (cm): 158. Weight (kg): 57. BMI ( kg/m 2): 22.83. Patient location: [facility]. Height Centile: 98.57. Weight Centile: 99.35. Person requesting test: DUDLEY RENE MD Reason for test: V87.41-Personal history of antineoplastic rfburzyboiig-EBG-9-CM 205.01-Acute myelo id leukemia in rem. Procedure Description: ECHOCARDIOGRAM. Summary: Status post adriamycin therapy. Normal left ventricular size, wall thick ness and systolic function. Normal appearing right ventricular size with qualitatively good right ventricular systolic function. No mitral regurgitation or aortic regurg itation and normal Doppler study of the intracardiac valves. No intracardiac masses seen. Compared with last study, there has been no significant change. Complete 2-dimensional study performed, with pulse/continuous wave Doppler samplings, and color flow Doppler imagin g reviewed. Findings: Veins and Atria: >> Normal Left Atrium >> Normal Right Atrium >> Normal Systemic Veins Normal venous flow in the superior vena cava and innominate vein. >> Intact Atrial Septum A-V Canal: >> Mitral regurgitation, ruled out No mitral regurgitation or mitral valve prolapse . >> Normal Tricuspid Valve Trivial tricuspid regurgitation. >> Normal Mitral Valve Ventricles: >> Global left ventricular dysfunction, ruled out Normal left ventricular size, wall thick ness and systolic function. >> Left ventricular dilation or enlargem ent, ruled out >> Normal Right Ventricle Normal appearing right ventricular size with qualitatively good right ventricular systolic function. >> Intact Ventricular Septum Conotruncus: >> Aortic regurgitation, ruled out No aortic regurgitation seen. >> Normal Pulmonary Valve Normal Doppler study. Of the pulmonary v alve and branch pulmonary arteries. >> Normal Aortic Valve Tricommissural. Great Arteries: >> Normal Pulmonary Artery >> Normal Aorta Adjacent to the aortic valve. >> Normal Aortic Arch Not re-examined on this study. Pericardium: (No abnormalities seen) Other: >> S/p adriamycin therapy >> Intracardiac mass, ruled out No intracardiac mass or thrombus seen. Measures: Systemic Arterial Function: Name Value Units Z-Score Min Max Systolic BP 111 mmHg 0.61 81.96 126.26 Diastolic BP 57 mmHg 0.39 34.83 71.85 Pulse Pressure 54.00 mmHg Mean BP 75.0 mmHg -0.15 56.87 96.13 2D: Name Value Units LV Diastolic Volume Index 62.65 ml/m 2 (Bullet) M-Mode: Name Value Units Z-Score Min Max LV Diastolic Septal 0.88 cm -0.15 0.63 1 .17 Thickness M-Mode LV Diastolic 4.86 cm 0.25 4.09 5. 45 Dimension LV Diastolic Wall 0.82 cm -0.23 0.62 1.0 7 Thickness M-Mode LV Systolic 3.21 cm 0.4 2.44 3.72 Dimension LV Fractional Shortening 33.95 % -0.45 2 9.49 42.54 M-Mode LV Mass / Height 2 57.36 g/m 2 Relative Wall Thickness 0.36 LV Systolic Function: Name Value Units Z-Score Min Max LV Diastolic Volume 99.62 ml -1.28 86.69 160.54 (Bullet) LV Systolic Volume 43.44 ml -0.34 30.48 71.76 (Bullet) LV Ejection Fraction 0.56 -1.45 0.54 0.7 2 (Bullet) 2D LV Mass 102.66 gm -0.39 77.7 144.92 2D LV Volume Index 62.65 2D LV Mass Index 64.57 g/m 2 Endocardial FS 33.95 % -0.45 29.49 42.54 FS Vs Stress 33.95 % Cardiac Geometry: Name Value Units Z-Score Min Max M-Mode LV Mass 143.2 gm 0.22 93.31 201.7 9 M-Mode LV Mass Index 90.07 g/m 2 LV Diastolic Long Greig 7.83 cm Epicardial Diameter LV Diastolic Epicardial 31.00 cm 2 Cross-Sectional Area LV Systolic Long Greig 5.76 cm Diameter LV Systolic 9.05 cm 2 Cross-sectional Area LV Diastolic Long Greig 6.87 cm -0.92 6.2 1 8.69 Diameter LV Diastolic 17.40 cm 2 Cross-sectional Area LV Midwall Diastolic 5.68 cm 0.18 4.94 6 .3 Dimension 2D Left Atrial Diameter 2.98 cm M-Mode LV Mass / Height 90.64 g/m M-Mode LV Mass / 41.65 g/m 19.4 38.6 Height 2.7 Aorta: Name Value Units Z-Score Min Max Ao Annulus Diameter 1.83 cm -0.79 1.61 2 .34 Ao Root Diameter 2.40 cm -0.72 2.04 3.17 AV Area (using Diameter) 2.63 cm 2 Sinotubular Junction 2.14 cm -0.43 1.75 2.75 Diameter Ascending Ao Diameter 2.27 cm -0.35 1.82 2.92 Analysis Aortic Valve Doppler: Name Value Units AV Area (using Diameter) 2.63 cm 2 [place]'s Name: CHAVEZ ADRIAN MD Date/time of reading: May 06 2013 - 3:45:22 PM Report created at 3:47:02 PM on April Report Number: Note:Study interpreted at [facility] unless otherwise noted Performing Organization Address City/State/ZIP Code Phon e Number [facility] documented in this encounter Visit Diagnoses Diagnosis History of chemotherapy - Primary Personal history of antineoplastic chemo therapy AML (acute myeloid leukemia) in critical access hospital n ([facility]) (HCC) Acute myeloid leukemia in remission documented in this encounter Care Teams Maintenance Department Manager Relationship Specialty Start Date End Date Erika Chairez MD PCP - General 07/07/12 05/05/13 Sully Baldwin NP Nurse Practitioner 09/05/[address] [place] [phone] documented as of this encounter
--- OUTSIDE RECORDS SUMMARY | 2022-05-10 08:29 | XMS_ITS | Encounter Summary ---
:2000 Author Organization [facility] Address [address] [place] [address] Care Team Providers Name Role Phone Sherman King MD Primary Care Provider Sully Baldwin FLOAT REMOVER Unavailable Reason for Visit Reason Comments Follow-up Encounter Details Date Type Department Care Team Description 09/27/2010 Office Visit [facility] Pediatric Juliet Velasquez MD leukemia in remission Hematology & Oncology [address] [facility] [address] [facility] ([facility] ([facility] [place] [place] Dx) [address] [facility] [phone] [place] [address] Social History Tobacco Use Types Packs/Day Years Used Date Never Smoker Sex Assigned at Date Recorded Not on file documented as of this encounter Last Filed Vital Signs Vital Sign Reading Time Taken Comments Blood Pressure 100/55 09/27/2010 1406 EST Pulse 96 09/27/2010 1406 EST Temperature 36.8 ??C (98.2 ??F) 09/27/2010 1406 EST Respiratory Rate - - Oxygen Saturation - - Inhaled Oxygen Concentration - - Weight 37.6 kg (82 lb 14.3 oz) 09/27/2010 1406 EST Height 139.6 cm (4' 6.96) 09/27/2010 1406 EST Body Mass Index 19.29 09/27/2010 1406 EST documented in this encounter Patient Instructions Patient InstructionsJuliet James MD - 09/27/2010 22:58 EST Follow up in 2 months. Please call sooner with any concerns documented in this encounter Progress Notes Britany Mariscal - 09/28/2010 0854 EST Child Life Progress Note 09/28/2010 Jaswinder Ross 2000 Patient's Developmental Level: On Track Caregivers: Mother(s) and Father(s) Siblings: Brother(s) Child Life Check-in/Chart Review: Tl Palmer has reviewed Jaswinder Ross's chart and made contact with he and family at today's appointment. The following services were offered and provided: diversional activities. Diversional Activities: Tl Palmer has provided opportunities to promote growth and development through play. Jaswinder was interested in playing video games and making paper airplanes. Jaswinder seemed su very responsive to directions and was able to control his body better than usual. Plan: Tl Palmer will continue to follow Jaswinder Ross and family throughout future outpatient clinic visits. Britany Mariscal Certified Complex Commercial Litigation Paralegal Pager: [phone] Juliet James MD - 09/27/2010 6922 EST Subjective: Patient ID: Jaswinder Ross is an 10 y.o. male. No chief complaint on file. JAZMINE Melton has done well since his last visit. No illnesses, has been active and playful. Enjoying school (although was an adjustment initially and had some anxiety with this). Of concern per mom is thatover the past 2 weeks he has had increasing obsessive behaviors and becomes fixated on how things are places (such as a load of laundry) and must work with it until it is correctly placed. He is able to verbalize that he does not feel right until it is correctly placed and cannot break from it. He has no fevers, no weight loss, no pain, no shortness of breath with exercise. Patient Active Problem List Diagnoses Code ??? ALL (acute lymphoblastic leukemia) 204.00AZ ??? Obsessive behavior 300.3AH Past Medical History Diagnosis Date ??? Complication deliv NEC-antepar gestational diabetes History reviewed. No pertinent past surgical history. Family History Problem Relation Age of Onset ??? * Paternal Grandmother ??? * Maternal Grandmother Social History Substance Use Topics ??? Tobacco Use: Never ??? Alcohol Use: Not on file No current outpatient prescriptions on file prior to encounter. Allergies Allergen Reactions ??? Ambisome (Amphotericin B Liposome) hypotension ??? Voriconazole Rash ROS - See HPI Objective: BP 100/55 Pulse 96 Temp(Src) 36.8 ??C (98.2 ??F) (Tympanic) Ht 139.6 cm (54.96) Wt 37.6 kg (82 lb 14.3 oz) Physical Exam [place] 1000% General: Active and playful HEENT: MMM, no sores, no thrush, PERRLA, EOMI Lungs:CTA-bilaterally Heart:RRR, no murmur Abd:soft, nontender, no HSM, +bs LAD: no cerivical, supraclavicular, axillary, inguinal LAD palpable Ext:FROM x4 : normal testes, no masses palpable Neuro: no focal deficits, normal gait, no ataxia, normal finger-nose Skin: no rashes/bruising Assessment: 10 year old male with AML in remission now 23 months Plan: Onc: CBC within normal limits, no concerns of relapse on labs or physical exam Psych: Concerns per mother of obsessive behaviors increasing over past 2 weeks. She has been workingwith him to get through these episodes. Agreed to discuss with child psychology at next appointment if they persist. Geronimo also had issues with anxiety at beginning of school but this has improved per mom. GI: Eating well, no concerns Late effects: Needs ECHO every 3-5 years. Follow up: 2 months for clinic visit Juliet Abel MD documented in this encounter Plan of Treatment Upcoming Encounters Date Type Specialty Care Team Description 12/18/2022 Ancillary Procedure Cardiology 12/18/2022 Office Visit Cardiology Bg Kelsey MD [address] [place] [address], [facility], [facility] [address] [place] [phone] (Wo rk) documented as of this encounter Procedures Procedure Name Priority Date/Time Associated Comments Diagnosis COMPLETE BLOOD COUNT Routine 09/27/2010 13:35 Acute myeloid Re sults for this AND DIFFERENTIAL EST leukemia in procedure a re in remission (CMS-HCC) the resu lts section. documented in this encounter Results HEMAGRAM AND DIFFERENTIAL (09/27/2010 13:35 EST) Pathologist Sig nature WBC Ordered in error 4.5 - 13.5 K/cmm [facility] RBC Ordered in error 4.00 - 6.20 [facility] M/cmm Hemoglobin Ordered in error 11.5 - 15.5 [facility] gm/dl HCT Ordered in error 35.0 - 45.0 % [facility] MCV Ordered in error 77 - 95 fl [facility] MCH Ordered in error pg [facility] MCHC Ordered in error gm/dl [facility] PLT Ordered in error 156 - 312 K/cmm [facility] RDW-CV Ordered in error % [facility] Neutrophils Ordered in error % [facility] Specimen Blood specimen (specimen) Performing Organization Address City/State/ZIP Code Phon e Number [facility] [address] [place] [address] SERVICES [facility] [address] [place] [address] documented in this encounter Visit Diagnoses Diagnosis Acute myeloid leukemia in remission ([facility]) (HCC) - Primary Acute myeloid leukemia in remission documented in this encounter Care Teams Practice Specialist Relationship Specialty Start Date End Date Sherman King MD PCP - General 05/24/10 07/01/[address] [place] [phone] Sully Baldwin, MARIE Nurse Practitioner 09/05/10 [address] [place] [phone] documented as of this encounter
--- OUTSIDE RECORDS SUMMARY | 2022-05-10 08:29 | XMS_ITS | Encounter Summary ---
:2000 Author Organization [facility] Address [address] [place] [address] Care Team Providers Name Role Phone Sherman King MD Primary Care Provider Sully Baldwin SEX CRIMES DETECTIVE Unavailable Encounter Details Date Type Department Care Team Description 10/24/2011 Hospital Encounter [facility] - Unknown, Provider, [facility] Brandi Kam NP [address] [place] [phone] [address] [place], [place] [id number] Social History Tobacco Use Types Packs/Day Years [...] Office Visit Cardiology Bg Kelsey MD 111 [facility] Level [address] [place], [place] [phone] (Wo rk) documented as of this encounter Visit Diagnoses Not on filedocumented in this encounter Care Teams Kitchen Runner Relationship Specialty Start Date End Date Sherman King MD PCP - General 05/24/10 07/01/12 [place] [phone] Sully Baldwin NP Nurse Practitioner 09/05/[address] [place] [phone] documented as of this encounter
--- OUTSIDE RECORDS SUMMARY | 2022-05-10 08:29 | XMS_ITS | Encounter Summary ---
:2002 Author Organization [facility] Address [address] [place] [address] Care Team Providers Name Role Phone Sherman King MD Primary Care Provider Sully Baldwin PROGRAM DIRECTOR/MORNING SHOW HOST Unavailable Reason for Visit Reason Comments Leg Pain mass on right tibia Encounter Details Date Type Department Care Team Description 12/14/2010 [facility] Visit [facility]os Exost[facility] ([facility] MD Rohan Dx) Orthopedics - [facility] [address] [facility] [address] [facility] [place], [facility] [phone] Social History Tobacco Use Types Packs/Day Years Used Date Never Smoker Sex Assigned at Date Recorded Not on file documented as of this encounter Discharge Disposition Disposition Code Departure Means Destination Auto Discharge documented in this encounter Progress Notes Britany Claros MD - 12/14/2010 1405 EST This office note has been dictated. #[id number] Britany Claros MD documented in this encounter Consult Notes Britany Claros MD - 12/24/2010 1039 EST ORTHOPAEDICS AND REHABILITATION SERVICES CONSULTATION - 12/14/2010 CHIEF COMPLAINT: Right tibia bump. HISTORY OF PRESENT ILLNESS: Jaswinder is a wonderful 8-ajkq[age][id number][age]8-month-old child who I am seeing today in consultation for Dr Sherman King for bony bump right tibia. Jaswinder comes in today accompanied by his mom and dad. Jaswinder's mom notes that at the time of his diagnosis of AML on 05/12/2008, the physical examination was noted to have a bump on his right leg. He underwent radiographic imaging, which was negative, as well as ultrasound, which was suggestive of an osteochondroma and Jaswinder now returns today for formal followup and recommendations of management of this bump. Jaswinder himself has never noticed the bump. Mom states that occasionally there would be some bruising over the area but Jaswinder himself has not had any pain. He does not have any limp or restriction of weightbearing activities orany other issues with the bump. Mom states that she feels it has not grown all that much over the last several years. Jaswinder otherwise is currently 2 years off therapy without evidence of recurrent disease. PAST MEDICAL HISTORY: Acute myelogenous leukemia, as above. PAST SURGICAL HISTORY: None. MEDICATIONS: Have been a chemotherapy regimen for his AML. ALLERGIES: AMBISOME and VORICONAZOLE. 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 He weighed 10 pounds and 5 ounces. He met all his developmental milestones and began walking at the age of 12 months. FAMILY HISTORY: Noncontributory. SOCIAL HISTORY: Attends the second grade. He enjoys playing hockey. He has a brother and a sister. He lives with his mom and dad. REVIEW OF SYSTEMS: Conducted for 14-system review and positive only for cancer, which is currently in remission. OBJECTIVE: Physical examination reveals a very active young man in no apparent distress. He is alertand oriented to person, place and time. His breathing is nonlabored. His pulse is regular rate and rhythm. His face is symmetric. Examination of his gait: He walks with a normal heel-to-toe gait without difficulty, single leg hops on the right lower extremity without difficulty. Focused examination ofthe right lower extremity: He exhibits no quadriceps or gastroc atrophy. Directly over the anterior medial crest approximately 7 cm distal to the joint line is a firm, hard, fixed bony mass, which appears to be intimate with the tibia itself. He is nontender to palpation. It measures approximately 1 cm in length and does not create appreciable deformity subcutaneously. He otherwise has sensation fully intact to light touch in the superficial and deep peroneal nerve, medial and lateral plantar nerve and sural and saphenous nerve. Strength is 5/5 to the EHL, FHL, tibia and gastroc-soleus muscles. He has a palpable dorsalis pedis and posterior tibial artery pulse. IMAGING: Internal oblique of the tibia was ordered by myself today and independently reviewed and reveals a cortical irregularity at the level of the palpable mass most consistent with that of an osteochondroma. Previous films taken in 2007, AP and lateral of bilateral knees are within normal limits. U ltrasound performed on 05/19/2008 was independently reviewed by myself and has findings most consistent with that of an exostosis or osteochondroma. IMPRESSION: Osteochondroma right tibia. PLAN: At this point, the Jaswinder's proximal tibial lesion is clinically and radiographically most consistent with an osteochondroma. It's clinical and radiographic appearance is benign. I recommend no formal intervention unless this becomes symptomatic or painful, I did discuss the natural history of e xostosis and the fact that these do enlarge with skeletal immaturity as the child grows and is not expected to grow once the child reaches skeletal maturity. I discussed the risk of malignant degeneration most often at skeletal maturity into chondrosarcoma and I did give a handout to the family concerning all of the natural history and treatment for osteochondroma. At this point I recommend only surveillance. I would like to see him back in one years' time to repeat an x-ray, which includes extreme internal rotation of the right knee to ensure that this continues to manifest in a benign nature, I have asked mom to call me in the meantime if Jaswinder begins having any symptoms or she is concerned about the lesion at all. Electronically Signed by Britany Claros MD 12/24/2010 10:39 Britany Claros MD [address] [place] [id number] - Britany Claros MD - MANDA Job ID: SM Doc ID: [id number] Ext Doc ID: [id number] cc: Sherman King MD documented in this encounter Plan of Treatment Upcoming Encounters Date Type Specialty Care Team Description 12/18/2022 Ancillary Procedure Cardiology 12/18/2022 Office Visit Cardiology Bg Kelsey MD [address] [facility], [facility], Level 1 [place], [place] [address] (Wo rk) documented as of this encounter Procedures Procedure Name Priority Date/Time Associated Diagnosis Comme nts KNEE 1 OR 2 VIEWS Routine 12/14/2010 13:45 Exostosis Result s for this EST procedure are i n the results section. documented in this encounter Results KNEE 1 OR 2 VIEWS (12/14/2010 13:45 EST) Anatomical Region Laterality Modality Other Specimen Narrative [facility] - 02/2011 14:52 EST Findings: Internal rotation oblique radiograph of the right knee was obtained. Comparison is made with 05/21/2008. Ther e is an exostosis arising from the anteromedial surface of the tib ia which has a bilobed appearance. No other abnormality is iden tified. Procedure Note 12/14/2010 Findings: Internal rotation oblique radiograph of the right knee was obtained. Comparison is made with 05/21/2008. Ther e is an exostosis arising from the anteromedial surface of the tib ia which has a bilobed appearance. No other abnormality is iden tified. Performing Organization Address City/State/ZIP Code Phon e Number [facility] documented in this encounter Visit Diagnoses Diagnosis Exostosis - Primary Exostosis of unspecified site documented in this encounter Care Teams Service Associate Relationship Specialty Start Date End Date Sherman King MD PCP - General 05/24/10 07/01/12 [address] [place] [address] Sully Baldwin, MARIE Nurse Practitioner 09/05/10 [address] [place] [address] documented as of this encounter
--- OUTSIDE RECORDS SUMMARY | 2022-05-10 08:29 | XMS_ITS | Encounter Summary ---
:2002 Author Organization [facility] Address [address] [place] [address] Care Team Providers Name Role Phone Sherman King MD Primary Care Provider Sully Baldwin STENCILER Unavailable Reason for Visit Reason Onset Date Comments Labs Only 07/29/2011 Encounter Details Date Type Department Care Team Description 07/29/2011 Orders Only [facility], grain elevator superintendent [facility] Pediatric [address] [place] [address] leukemia ([facility] Hematology & [place] [address] (Primar y Dx) Oncology - [address] [id number] Social History Tobacco Use Types Packs/Day Years Used Date Never Smoker Sex Assigned at Date Recorded Not on file documented as of this encounter Plan of Treatment Upcoming Encounters Date Type Specialty Care Team Description 12/18/2022 Ancillary Procedure Cardiology 12/18/2022 Office Visit Cardiology Bg Kelsey MD [address] [facility], [facility], Level 1 [place], [place] [address] (Wo rk) documented as of this encounter Results HEMAGRAM AND DIFFERENTIAL (10/24/2011 14:50 EST) Pathologist [facility] nature WBC 9.10 4.5 - 13.5 K/cmm [facility] RBC 4.34 4.00 - 6.20 M/cmm [facility] Hemoglobin 12.9 11.5 - 15.5 gm/dl [facility] HCT 36.4 35.0 - 45.0 % [facility] MCV 84 77 - 95 fl [facility] MCH 29.7 pg [facility] MCHC 35.3 gm/dl [facility] PLT 198 156 - 312 K/cmm [facility] RDW-CV 13.4 % [facility] Neutrophils 54.0 % [facility] Lymphocytes 34.1 % [facility] Monocytes 9.3 % [facility] Eosinophils 1.7 % [facility] Basophils 0.9 % [facility] ABS Neutrophils 4.92 K/cmm [facility] ABS Lymphs 3.11 K/cmm [facility] ABS Monocytes 0.84 K/cmm [facility] ABS Eosinophils 0.15 K/cmm [facility] ABS Basophils 0.08 K/cmm [facility] Type of Diff: Automated [facility] Specimen Blood specimen (specimen) Performing Organization Address City/State/ZIP Code Phon e Number [facility] [address] [place] [address] SERVICES [facility] [address] [place] [address] documented in this encounter Visit Diagnoses Diagnosis Acute myeloblastic leukemia (HCC) - Prim david Acute myeloid leukemia, without mention of having achieved remission documented in this encounter Care Teams Pelletizer Relationship Specialty Start Date End Date Sherman King MD PCP - General 05/24/10 07/01/[address] [place] [phone] Sully Baldwin, MARIE Nurse Practitioner 09/05/10 [address] [place] [phone] documented as of this encounter
--- OUTSIDE RECORDS SUMMARY | 2022-05-10 08:29 | XMS_ITS | Encounter Summary ---
:2002 Author Organization [facility] Address [address] [place] [address] Care Team Providers Name Role Phone Sherman King MD Primary Care Provider Sully Baldwin BREAD STACKER Unavailable Reason for Visit Reason Onset Date Comments Advice Only 05/29/2012 Encounter Details Date Type Department Care Team Description 05/29/2012 Telephone [facility] Dudley Rene MD Advice Only Pediatric Hematology & [address] [place] [address] [place] [address] [place] [address] [place] [address] [phone] Social History Tobacco Use Types Packs/Day Years Used Date Never Smoker Sex Assigned at Date Recorded Not on file documented as of this encounter Miscellaneous Notes Telephone Encounter - Pat North RN - 05/29/2012 1320 EDT Mom calling to discuss symptoms that are worrying her. Over the last few weeks he has been c/o dizziness, fatigue and headaches. She acknowledges that it has been hot and he probably has not been drinking enough. He is not scheduled to be seen in clinic until 07/07. [facility]. Pat North, RN elephone Encounter - Oneyda Sanchez - 05/29/2012 1251 EDT Jaswinder's mother is calling with a few questions for RN Pat North. documented in this encounter Plan of Treatment Upcoming Encounters Date Type Specialty Care Team Description 12/18/2022 Ancillary Procedure Cardiology 12/18/2022 Office Visit Cardiology Bg Kelsey MD [address] [facility], [facility], Level [address] [place], [place] [address] (Wo rk) documented as of this encounter Visit Diagnoses Not on filedocumented in this encounter Care Teams Quality Assurance Lab Technician Relationship Specialty Start Date End Date Sherman King MD PCP - General 05/24/10 07/01/[address] [place] [address] [place] [phone] Sully Baldwin BREAD STACKER Nurse Practitioner 09/05/10 [address] [place] [address] documented as of this encounter
--- OUTSIDE RECORDS SUMMARY | 2022-05-10 08:29 | XMS_ITS | Encounter Summary ---
:2002 Author Organization [facility] Address [address] [place] [address] Care Team Providers Name Role Phone Sully Baldwin PAPER FINAL INSPECTOR Unavailable Bernard Newman MD Primary Care Provider [phone] Encounter Details Date Type Department Care Team Description 10/21/2013 Phlebotomy Only [facility] Supervisor Area, Chron [facility] Outpatient leukemia, without [address] mention of having [place], [place] achieved milo ssion [phone] Social History Tobacco Use Types Packs/Day Years Used Date Never Smoker Sex Assigned at Date Recorded Not on file documented as of this encounter Plan of Treatment Upcoming Encounters Date Type Specialty Care Team Description 12/18/2022 Ancillary Procedure Cardiology 12/18/2022 Office Visit Cardiology Bg Kelsey MD [address] [facility], [facility], Level 1 [place], [place] [address] (Wo rk) documented as of this encounter Procedures Procedure Name Priority Date/Time Associated Comments Diagnosis DIFFERENTIAL STAT 10/21/2013 14:31 Chronic myeloid Results for this EST leukemia, without procedure are in mention of having the result s achieved remission section. COMPLETE BLOOD COUNT STAT 10/21/2013 14:31 Chronic myeloid Results for this EST leukemia, without procedure are in mention of having the result s achieved remission section. COMPLETE BLOOD COUNT STAT 10/21/2013 14:31 Chronic myeloid AND DIFFERENTIAL EST leukemia, without mention of having achieved remission documented in this encounter Results DIFFERENTIAL (10/21/2013 14:31 EST) Pathologist Sig nature Neutrophils 48.9 % [facility] Lymphocytes 39.6 % [facility] Monocytes 8.6 % [facility] Eosinophils 2.3 % [facility] Basophils 0.6 % [facility] ABS Neutrophils 3.80 K/cmm [facility] ABS Lymphs 3.08 K/cmm [facility] ABS Monocytes 0.67 K/cmm [facility] ABS Eosinophils 0.18 K/cmm [facility] ABS Basophils 0.05 K/cmm [facility] Type of Diff: Automated [facility] Specimen Performing Organization Address City/[facility]/ZIP Code Phon e Number [facility] [address] [place] [address] SERVICES [facility] [address] [place] [address] HEMAGRAM (10/21/2013 14:31 EST) Pathologist Sig nature WBC 7.78 4.5 - 13.0 K/cmm [facility] RBC 4.49 4.00 - 6.20 M/cmm [facility] Hemoglobin 12.6 11.5 - 15.5 gm/dl [facility] HCT 37.1 35.0 - 45.0 % [facility] MCV 83 77 - 95 fl [facility] MCH 28.0 pg [facility] MCHC 33.9 gm/dl [facility] PLT 224 156 - 312 K/cmm [facility] RDW-CV 13.5 % [facility] Specimen Performing Organization Address City/[facility] Phon e Number [facility] [address] [place] [address] SERVICES [facility] [address] [place] [address] documented in this encounter Visit Diagnoses Diagnosis Chronic myeloid leukemia, without mentio n of having achieved remission documented in this encounter Care Teams Heel Reducer Relationship Specialty Start Date End Date Bernard Newman MD PCP - General 10/21/13 [place] [place], [place] [address] Sully Baldwin, PAPER FINAL INSPECTOR Nurse Practitioner 09/05/10 [address] [place] [address] documented as of this encounter
--- OUTSIDE RECORDS SUMMARY | 2022-05-10 08:29 | XMS_ITS | Encounter Summary ---
:2002 Author Organization [facility] Address [address] [place] [address] Care Team Providers Name Role Phone Sully Baldwin OUTREACH LIAISON Unavailable Bernard Newman MD Primary Care Provider [phone] Reason for Visit Reason Onset Date Comments Other 03/22/2014 Encounter Details Date Type Department Care Team Description 03/22/2014 [facility] Other Pediatric Hematology & [address] [place] [address] [place] [address] [place] [address] [place] [address] [phone] Social History Tobacco Use Types Packs/Day Years Used Date Never Smoker Smokeless Tobacco: Never Used Sex Assigned at Date Recorded Not on file documented as of this encounter Miscellaneous Notes Telephone Encounter - Pat North RN - 03/22/2014 1227 EDT Geronimo completed AML therapy in Oct 2008. He is now followed in the Late Effects clinic once a year, next due to be seen in Oct 2014. He received 492 mg/m2 anthracycline, according to the COG guidelines her should have an ECHO/EKG annually. This was last done April 2013. Orders placed for EKG/ECHO to be done this summer, mother given the office number to schedule at their convenience. Pat North RN elephone Encounter - Farhana Soares - 03/22/2014 1134 EDT Mother is calling to follow upon the question of when Geronimo should be having his ECHO. She states that Geronimo is due to come back in October but thought maybe the ECHO should be in March per protocol. documented in this encounter Plan of Treatment Upcoming Encounters Date Type Specialty Care Team Description 12/18/2022 Ancillary Procedure Cardiology 12/18/2022 Office Visit Cardiology Bg Kelsey MD [address] [facility], Level [address] [place], [place] [address] (Wo rk) documented as of this encounter Visit Diagnoses Not on filedocumented in this encounter Care Teams Powder Worker Relationship Specialty Start Date End Date Bernard Newman MD PCP - General 10/21/[address] [place] [address] Sully Baldwin, MARIE Nurse Practitioner 09/05/[address] [place] [address] documented as of this encounter
--- OUTSIDE RECORDS SUMMARY | 2022-05-10 08:29 | XMS_ITS | Encounter Summary ---
:2002 Author Organization [facility] Address [address] [place] [address] Care Team Providers Name Role Phone Sherman King MD Primary Care Provider Sully Baldwin APPOINTMENT SPECIALIST Unavailable Encounter Details Date Type Department Care Team Description 03/04/2012 Results Only [facility] Jackeline Baldwin NP Pediatric Hematology & [address] [place] [address] [address] [facility] [address] [place], [place] [address] [phone] Social History Tobacco Use Types Packs/Day Years Used Date Never Smoker Sex Assigned at Date Recorded Not on file documented as of this encounter Plan of Treatment Upcoming Encounters Date Type Specialty Care Team Description 12/18/2022 Ancillary Procedure Cardiology 12/18/2022 Office Visit Cardiology Bg Kelsey MD [address] [place] [address] [address] [place], [place] [address] (Wo rk) documented as of this encounter Procedures Procedure Name Priority Date/Time Associated Diagnosis Comme nts SLIDE REQUEST Routine 03/04/2012 12:53 EDT Result s for this procedure are i n the results section . documented in this encounter Results SLIDE REQUEST (03/04/2012 12:53 EDT) Pathologist Sig nature Note FILED [facility] Specimen Performing Organization Address City/State/ZIP Code Phon e Number [facility] [address] [place] [address] SERVICES [facility] [address] [place] [address] documented in this encounter Visit Diagnoses Not on filedocumented in this encounter Care Teams Marketer Relationship Specialty Start Date End Date Sherman King MD PCP - General 05/24/10 07/01/[address] [place] [phone] Sully Baldwin APPOINTMENT SPECIALIST Nurse Practitioner 09/05/10 [address] [place] [address] documented as of this encounter
--- OUTSIDE RECORDS SUMMARY | 2022-05-10 08:29 | XMS_ITS | Encounter Summary ---
:2000 Author Organization [facility] Address [address] [place] [address] Care Team Providers Name Role Phone Sully Baldwin KETTLE COOK Unavailable Bernard Newman MD Primary Care Provider [phone] Reason for Referral Cardiology (Routine) - Closed Specialty Diagnoses / Procedures Referred By Contact Refer red To Contact Cardiology / Diagnoses Acute myeloid leukemia in remission ([facility]) (HCC) Personal history of antineoplastic chemotherapy Dudley Rene MD Ep4 Pedi Cardiology Pediatric Cardiology Procedures ECHOCARDIOGRAM WA ECHO HEART XTHORACIC,COMPLETE W DOPPLER [address] Phone: [phone] [facility] [phone] Referral ID Status Reason Start Date Expiration Date Visits Requ ested Visits Authorized [id number] Closed 05/06/2014 1 1 Reason for Visit Reason Onset Date Comments Surveillance 03/22/2014 Encounter Details Date Type Department Care Team Description 03/22/2014 Orders Only [facility] Dudley Rene MD Acute myeloid leukemia in remission ([facility] -HCC) (Primary Dx); Hospital Pediatric [address] [place] [address] history of antineoplastic chemotherapy Hematology & Avenue Oncology - [facility] [phone] [place] [address] [place] [address] [phone] Social History Tobacco Use Types Packs/Day Years Used Date Never Smoker Smokeless Tobacco: Never Used Sex Assigned at Date Recorded Not on file documented as of this encounter Plan of Treatment Upcoming Encounters Date Type Specialty Care Team Description 12/18/2022 Ancillary Procedure Cardiology 12/18/2022 Office Visit Cardiology Bg Kelsey MD 111 [facility] Level 1 [place], [place] [address] (Wo rk) documented as of this encounter Procedures Procedure Name Priority Date/Time Associated Diagnosis Comme nts ECHOCARDIOGRAM Routine 05/06/2014 8:00 EDT Acute myeloid leuke mona Results for this in remission (CM S-HCC) procedure are [facility]. chemotherapy documented in this encounter Results ECHOCARDIOGRAM (05/06/2014 8:00 EDT) Specimen Narrative CARDIOLOGY - 05/06/2014 17:18 EDT Patient Name: DIANA ROSS Chart Number: [id number] Site Location: Date of Appt: Tuesday, May 06, 2014, 8:0 0 AM Pediatric Echocardiogram Report Demographics and Visit Data: : 2000. ??Age: 14y/0m/2d. ??Sex: M. ??BSA (m 2): 1.72. ?? Height (cm): 166. ??Weight (kg): 63.6. ? ?BMI (kg/m 2): 23.08. ?? [facility] ??Height Centile: 98.51. ?? Weight Centile: 99.11. ??Person requesti ng test: LAUREN PAINTING,DUDLEY Lo ?? Advertiser: Lexy Payan. ??Reason for test: .-Acute myeloid leukemia in rznhwdjic-NLK-2-CM V87.41-Pe rsonal history of antineoplastic chemot. ?? Procedure Description: ECHOCARDIOGRAM. ? ? Summary: Normal atrioventricular and ventriculoar terial concordance. Normal cardiac anatomy and performance. Little change from previous studies. Leukemia, s/p adriamycin therapy. Complete 2-dimensional study performed, with pulse/continuous wave Doppler samplings, and color flow Doppler jailene brown reviewed. Atrial Situs: Solitus Ventricular Situs: D - Looped Arterial Situs: Solitus Findings: ?? Veins and Atria: ?? >> Normal Left Atrium >> Normal Right Atrium >> Intact Atrial Septum >> Normal Systemic Veins ?? A-V Canal: ?? >> Tricuspid regurgitation, [...] hyperdynamic circulation. ? Great Arteries: ?? >> Patent ductus arteriosus, ruled out >> Normal Proximal Coronary Arteries >> Left aortic arch -unobstructed. ?? >> Normal Aorta (adjacent to aortic valve). ? Pericardium: ?? (No abnormalities seen) ?? Other: ?? >> S/p adriamycin therapy >> Leukemia (acute myeloid leukemia in remission). ? Measures: ?? Systemic Arterial Function: ?? Name ?Value ?Units ?Z-Score ?Min ?Max ?? Systolic BP ? 1 21 ?mmHg ? 1.43 ? 82.34 ??127.09 ?? Diastolic BP ?5 2 ? mmHg ? -0.18 ?35.17 ??72.28 ?? Pulse Pressure ?69 .00 ?mmHg ? Mean BP ? 75.0 ? mmHg ? -0.19 ?57.13 ??96.78 ? 2D: ?? Name ?Value ?Units ?? LV Diastolic Volume Index ? 89.16 ?ml/m 2 ? (Bullet) ?? M-Mode: ?? Name ?Value ?Units ?Z-Score ?Min ?Max ?? LV Diastolic Septal ? 1.03 ? cm ? 0.63 ? 0.66 ?? 1.22 ?? Thickness M-Mode LV Diastolic ? 4.91 ? cm ? -0.04 ?4.22 ?? 5.63 ?? Dimension LV Diastolic Wall ? 0.93 ? cm ? 0.4 ?0.65 ?? 1.12 ?? Thickness M-Mode LV Systolic ?3.13 ? cm ? -0.15 ?2.51 ?? 3.86 ?? Dimension LV Fractional Shortening ?36.25 ?% ?0.27 ? 29.37 ??42.53 ?? M-Mode LV Mass / Height 2 ? 62.38 ?g/m 2 ? Relative Wall Thickness ? 0.40 ? LV Systolic Function: ?? Name ?Value ?Units ?Z-Score ?Min ?Max ?? LV Diastolic Volume ? 153.3 5 ?? ml ? 0.81 ? 96.79 ??176.78 ?? (Bullet) LV Systolic Volume ?69.1 3 ?ml ? 1.22 ? 34.55 ??81.28 ?? (Bullet) LV Ejection Fraction ?0.55 ?-1.69 ?0.54 ?? 0.72 ?? (Bullet) 2D LV Mass ? 136.03 ?? gm ? 0.79 ? 86.67 ??159.58 ?? 2D LV Volume Index ?89.1 6 ? 2D LV Mass Index ?79. 09 ?g/m 2 ? Endocardial FS ?36 .25 ?% ?0.27 ? 29.37 ??42.53 ?? FS Vs Stress ?3 6.25 ?% ? Cardiac Geometry: ?? Name ?Value ?Units ?Z-Score ?Min ?Max ?? M-Mode LV Mass ?17 1.89 ?? gm ? 0.56 ? 104.46 227.11 ?? M-Mode LV Mass Index ?99.93 ?g/m 2 ? LV Diastolic [place] ?9.26 ? cm ? Epicardial Diameter LV Diastolic Epicardial ? 37.50 ?cm 2 ? Cross-Sectional Area LV Systolic [place] ? 7.03 ? cm ? Diameter LV Systolic ? 1 1.80 ?cm 2 ? Cross-sectional Area LV Diastolic [place] ?8.48 ? cm ? 1.14 ? 6.42 ?? 9.03 ?? Diameter LV Diastolic ?2 1.70 ?cm 2 ? Cross-sectional Area LV Midwall Diastolic ?5.84 ? cm ? 0.09 ? 5.11 ?? 6.51 ?? Dimension M-Mode LV Mass / Height ? 103.55 ?? g/m ? M-Mode LV Mass / ?43. 75 ?g/m ? 19.4 ?? 38.6 ?? Height 2.7 ?? Aorta: ?? Name ?Value ?Units ?Z-Score ?Min ?Max ?? Ao Annulus Diameter ? 1.91 ? cm ? -0.75 ?1.67 ?? 2.44 ?? Ao Root Diameter ?2.3 5 ? cm ? -1.19 ?2.12 ?? 3.3 ?? AV Area (using Diameter) ?2.87 ? cm 2 ? Sinotubular Junction ?2.23 ? cm ? -0.4 ? 1.81 ?? 2.87 ?? Diameter Ascending Ao Diameter ? 2.44 ? cm ? -0.09 ?1.89 ?? 3.04 ? Analysis Aortic Valve Doppler: ?? Name ?Value ?Units ?? AV Area (using Diameter) ?2.87 ? cm 2 ? Auburn's Name: ALY LEAL MD Date/time of reading: May 06 2014 - 5:17:40 PM Report created at 5:18:49 PM on Tuesday, May 06, 2014 Report Number: Note:Study interpreted at [facility] unless otherwise noted Procedure Note 05/06/2014 Patient Name: DIANA ROSS Chart Number: [id number] Site Location: Date of Appt: Tuesday, May 06, 2014, 8:0 0 AM Pediatric Echocardiogram Report Demographics and Visit Data: : 2000. Age: 14y/0m/2d. Sex: M. BSA (m 2): 1.72. Height (cm): 166. Weight (kg): 63.6. BMI (kg/m 2): 23.08. [facility]. Height Centile: 98.51. Weight Centile: 99.11. Person requesting test: DUDLEY RENE MD Advertiser: Lexy Payan. Reason fo r test: 205.01-Acute myeloid leukemia in ntpiyoqod-ZCT-6-CM V87.41-Pe rsonal history of antineoplastic chemot. Procedure Description: ECHOCARDIOGRAM. Summary: Normal atrioventricular and ventriculoar terial concordance. Normal cardiac anatomy and performance. Little change from previous studies. Leukemia, s/p adriamycin therapy. Complete 2-dimensional study performed, with pulse/continuous wave Doppler samplings, and color flow Doppler imagin g reviewed. Atrial Situs: Solitus Ventricular Situs: D - Looped Arterial Situs: Solitus Findings: Veins and Atria: >> Normal Left Atrium >> Normal Right Atrium >> Intact Atrial Septum >> Normal Systemic Veins A-V Canal: >> Tricuspid regurgitation, trivial -of [...] with a hyperdynamic circulation. Great Arteries: >> Patent ductus arteriosus, ruled out >> Normal Proximal Coronary Arteries >> Left aortic arch -unobstructed. >> Normal Aorta (adjacent to aortic valve). Pericardium: (No abnormalities seen) Other: >> S/p adriamycin therapy >> Leukemia (acute myeloid leukemia in remission). Measures: Systemic Arterial Function: Name Value Units Z-Score Min Max Systolic BP 121 mmHg 1.43 82.34 127.09 Diastolic BP 52 mmHg -0.18 35.17 72.28 Pulse Pressure 69.00 mmHg Mean BP 75.0 mmHg -0.19 57.13 96.78 2D: Name Value Units LV Diastolic Volume Index 89.16 ml/m 2 (Bullet) M-Mode: Name Value Units Z-Score Min Max LV Diastolic Septal 1.03 cm 0.63 0.66 1. 22 Thickness M-Mode LV Diastolic 4.91 cm -0.04 4.22 5 .63 Dimension LV Diastolic Wall 0.93 cm 0.4 0.65 1.12 Thickness M-Mode LV Systolic 3.13 cm -0.15 2.51 3. 86 Dimension LV Fractional Shortening 36.25 % 0.27 29 .37 42.53 M-Mode LV Mass / Height 2 62.38 g/m 2 Relative Wall Thickness 0.40 LV Systolic Function: Name Value Units Z-Score Min Max LV Diastolic Volume 153.35 ml 0.81 96.79 176.78 (Bullet) LV Systolic Volume 69.13 ml 1.22 34.55 8 1.28 (Bullet) LV Ejection Fraction 0.55 -1.69 0.54 0.7 2 (Bullet) 2D LV Mass 136.03 gm 0.79 86.67 159.58 2D LV Volume Index 89.16 2D LV Mass Index 79.09 g/m 2 Endocardial FS 36.25 % 0.27 29.37 42.53 FS Vs Stress 36.25 % Cardiac Geometry: Name Value Units Z-Score Min Max M-Mode LV Mass 171.89 gm 0.56 104.46 227 .11 M-Mode LV Mass Index 99.93 g/m 2 LV Diastolic [place] 9.26 cm Epicardial Diameter LV Diastolic Epicardial 37.50 cm 2 Cross-Sectional Area LV Systolic [place] 7.03 cm Diameter LV Systolic 11.80 cm 2 Cross-sectional Area LV Diastolic [place] 8.48 cm 1.14 6.42 9.03 Diameter LV Diastolic 21.70 cm 2 Cross-sectional Area LV Midwall Diastolic 5.84 cm 0.09 5.11 6 .51 Dimension M-Mode LV Mass / Height 103.55 g/m M-Mode LV Mass / 43.75 g/m 19.4 38.6 Height 2.7 Aorta: Name Value Units Z-Score Min Max Ao Annulus Diameter 1.91 cm -0.75 1.67 2 .44 Ao Root Diameter 2.35 cm -1.19 2.12 3.3 AV Area (using Diameter) 2.87 cm 2 Sinotubular Junction 2.23 cm -0.4 1.81 2 .87 Diameter Ascending Ao Diameter 2.44 cm -0.09 1.89 3.04 Analysis Aortic Valve Doppler: Name Value Units AV Area (using Diameter) 2.87 cm 2 Auburn's Name: ALY LEAL MD Date/time of reading: May 06 2014 - 5:17:40 PM Report created at 5:18:49 PM on Tuesday, May 06, 2014 Report Number: Note:Study interpreted at [facility] unless otherwise noted Performing Organization Address City/State/ZIP Code Phon e Number [facility] documented in this encounter Visit Diagnoses Diagnosis Acute myeloid leukemia in remission (HCC -CMS) (HCC) - Primary Acute myeloid leukemia in remission Personal history of antineoplastic chemo therapy documented in this encounter Care Teams Hplc Chemist Relationship Specialty Start Date End Date Bernard Newman MD PCP - General 10/21/[place] [address] Sully Baldwin NP Nurse Practitioner 09/05/[address] [place] [phone] documented as of this encounter
--- OUTSIDE RECORDS SUMMARY | 2022-05-10 08:29 | XMS_ITS | Encounter Summary ---
:2000 Author Organization [facility] Address [address] [place] [address] Care Team Providers Name Role Phone Sully Baldwin PARKING ENFORCEMENT SPECIALIST Unavailable Bernard Newman MD Primary Care Provider [phone] Reason for Visit Reason Comments Follow-up AML off therapy Encounter Details Date Type Department Care Team Description 10/21/2013 Office Visit [facility] History of chemotherapy (Primary Dx); Hospital Pediatric [address] [place] [address] AML (ac [place] myeloid leukemia) in remission ([facility]); Hematology & Avenue Compulsive behavior Oncology - [place] [phone] [place] [address] [place] [address] [phone] Social History Tobacco Use Types Packs/Day Years Used Date Never Smoker Smokeless Tobacco: Never Used Sex Assigned at Date Recorded Not on file documented as of this encounter Last Filed Vital Signs Vital Sign Reading Time Taken Comments Blood Pressure 112/58 10/21/2013 1453 EST Pulse 84 10/21/2013 1453 EST Temperature 36.5 ??C (97.7 ??F) 10/21/2013 1453 EST Respiratory Rate - - Oxygen Saturation - - Inhaled Oxygen Concentration - - Weight 61.4 kg (135 lb 5.8 oz) 10/21/2013 1453 EST Height 160.4 cm (5' 3.15) 10/21/2013 1453 EST Body Mass Index 23.86 10/21/2013 1453 EST documented in this encounter Patient Instructions Patient InstructionsDudley Rene MD - 10/21/2013 15:31 EST Call Pediatric Hematology/Oncology 24 hours a day at or ext [phone] forthe following concerns: Unexplained fevers Unexplained new pains New unintended weight loss Bruising/bleeding (low platelets). Tiredness (anemia). Any other questions or concerns. documented in this encounter Progress Notes Dudley Rene MD - 10/22/2013 1435 EST Pediatric Hem/Onc Followup Visit Reason for visit: Followup of AML off therapy HISTORIAN: Mother and patient. HISTORY OF PRESENT ILLNESS: Jaswinder Ross is an 13 y.o. 5 m.o. 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 He was enrolled on the [facility] protocol AAML 0531 and was randomized to the experimental gemtuzumab arm. His therapy included 492 mg/m2 of anthracyclines (doxorubicin equivalent). He tolerated therapy very well with the expected complications of myelosuppression. He completed therapy in 10/2008 and remains in his first remission. He is here today for routine followup 4 1/2 years after completing therapy. INTERVAL HISTORY: Since his last visit in April of this year Jaswinder is doing well overall. He has had no significant injuries, accidents or hospitalizations. Immunizations are UTD per parent. He is active, energetic and has an excellent appetite. Denies bruising, bleeding or petechiae. He is in the 5th grade this year with an IEP in place for extra assistance in math, but has Graduated to a non-IEPeducational plan for next year because of improved performance. He is receiving B's and C's in most of his classes. He is playing basketball in a school program and is reported to have normal coordination and stamina. His obsessive compulsive behaviors continue to be less and less of an issue, and he is currently on no meds for these. No new problems reported. Past Medical History Diagnosis Date ??? Other complication of labor and delivery, antepartum condition or complication gestational diabetes ??? 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 WBC 49,000, BURRER HAND negative, testicles negative. Chromosomes t(8:21), (q22:q22), [...] this visit. Allergies Allergen Reactions ??? Ambisome (Amphotericin B Liposome) hypotension ??? Voriconazole Rash FAMILY HISTORY: No change in family history since last visit in April,. SOCIAL HISTORY: Social history as noted above. Lives with his parents in [place], [place].He is in the 5th grade in a standard classroom. REVIEW OF [...] better controlled at school than at home. Performance status; 100 Pain: none reported Physical Exam: BP 112/58 Pulse 84 Temp(Src) 36.5 ??C (97.7 ??F) (Tympanic) Ht 160.4 cm (63.15) Wt 61.4 kg (135 lb 5.8 oz) BMI 23.86 kg/m2 Both height and weight are above the 95% but tracking in parallel and relatively well balanced General: Well-developed, well nourished, no acute distress. Cooperative with examination. Talkative and interactive. Eyes: PERRLA, EOMI, sclera anicteric. Ears: Tympanic membranes clear, non-bulging. Nose: Mucosa and turbinates pink, septum midline. Mouth: Lips pink, good dentition. Throat: Oral mucosa pink and moist. No ulcerations, exudates. Tonsils nl sized without exudates. Neck: No thyromegaly. Chest: Old well healed chest scar from previously removed central line. Resp: Clear to auscultation, no crackles, wheezes. CV: Regular S1, S2, no murmur. Peripheral perfusion normal. No edema. Abdomen: Soft non tender, + BS, No HSM Male : nl male, jered 2 Lymph: No cervical, supraclavicular, axillary, inguinal lymphadenopathy. Skin: Dry rash surrounding lips/mouth. Neurologic: [...] 05/06/2013 AST 30 05/06/2013 ALT 29 05/06/2013 Echo in April, shows normal function. IMPRESSION: Jaswinder is an 13 y.o. 5 m.o. boy with a history of AML, treated per [id number] protocol with intensive chemotherapy including gemtuzumab in CR1. Now off therapy 5 years. Patient Active Problem List Diagnosis ??? Compulsive behavior ??? Dry skin dermatitis ??? History of chemotherapy ??? Learning difficulty ??? 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n ??? Health education/counseling ??? Osteochondroma of tibia PLAN: AML - Off therapy. - CBC with differential obtained today within normal limits. - No signs or symptoms suggestive of disease recurrence. - Return to clinic in 1 year for history, physical examination and labs. Obsessive compulsive behavior - Decreased obsessive compulsive behaviors noted. This was the calmest I've seen him. Osteochondroma of right tibia - Seen by Dr Claros 12/2010. - 2 cm mass right tibial osteochondroma diagnosed by Dr Claros with no treatment necessary. Recommended yearly follow up. Late Effects - most of today's visit was devoted to a contined discussion of AML and late effects oftherapy including: Cardiac: At risk for cardiomyopathy related to anthracycline exposure. Jaswinder received 492 mg/m2 ofanthracyclines throughout his therapy. The maximum lifetime dose of anthracyclines is 500 mg/m2, placing him at higher risk for cardiotoxicity. Recommend echocardiograms & EKG's performed on a yearly basis. Had ECHO 6 mo ago which was normal. Recommend repeat in 1 year (2013) Bone Health reviewed importance of diet, exercise in combating osteopenia associated with intensive chemo. Neurocognitive effects: At risks for neurocognitive effects secondary to intrathecal therapy. Jaswinder has known deficits in math and writing, but seems to be improving at least in terms of school performance. Reads at grade level. Liver, kidney toxicity: At risk for liver and kidney toxicity secondary to high dose chemotherapy. Obtain comprehensive metabolic panel yearly. Secondary malignancy. There is the small risk for secondary leukemias related to etoposide exposure.CBC with differential obtained today within normal limits. Obtain CBC with differential at next visit in 4 months. Overall discussed the etiology of AML, and remote likelihood of inherited issues. Jaswinder is entering puberty normally, and that was discussed as well. DISPOSITION: Return to clinic in 4 months for history, physical, labs. Family aware to call with questions or concerns in the interim. Pt seen and examined in person. Discussed plan with pt's family, staff, and nursing staff. Thanks, Ar Rene MD Pedi Hem/Onc beeper [phone] I spent a total of 35 minutes in face to face time with this patient today and 25minutes of that time was spent counseling the patient on late effects of therapy and health education as noted above. documented in this encounter Plan of Treatment Upcoming Encounters Date Type Specialty Care Team Description 12/18/2022 Ancillary Procedure Cardiology 12/18/2022 Office Visit Cardiology Bg Kelsey MD [address] [place] [address] Level 1 [place], [place] [address] (Wo rk) documented as of this encounter Visit Diagnoses Diagnosis History of chemotherapy - Primary Personal history of antineoplastic chemo therapy AML (acute myeloid leukemia) in [facility] ([facility]) (HCC) Acute myeloid leukemia in remission Compulsive behavior Obsessive-compulsive disorders documented in this encounter Discontinued Medications Medication Sig Discontinue Reason Start Date End Date lidocaine-prilocaine Apply topically as Therapy completed 1 10/21/2013 (EMLA) cream needed for Other. Apply one hour prior to lab draw documented as of this encounter Care Teams Mechanical Lead Relationship Specialty Start Date End Date Bernard Newman MD PCP - General 10/21/[address] [place] [id number] Sully Baldwin, PARKING ENFORCEMENT SPECIALIST Nurse Practitioner 09/05/10 [address] [place] [address] documented as of this encounter
--- OUTSIDE RECORDS SUMMARY | 2022-05-10 08:29 | XMS_ITS | Encounter Summary ---
:2000 Author Organization [facility] Address [address] [place] [address] Care Team Providers Name Role Phone Sherman King MD Primary Care Provider Sully Baldwin VP COMPLIANCE Unavailable Reason for Visit Reason Onset Date Comments Labs Only 05/29/2012 Encounter Details Date Type Department Care Team Description 05/29/2012 Telephone [facility] Dudley Rene MD Labs Only Pediatric Hematology & [address] [place] [address] [place] [address] [place] [address] [place] [address] [phone] Social History Tobacco Use Types Packs/Day Years Used Date Never Smoker Sex Assigned at Date Recorded Not on file documented as of this encounter Miscellaneous Notes Telephone Encounter - Pat North RN - 06/01/2012 1055 EDT Called mom to review normal CBCD results. Geronimo has follow up scheduled in clinic at the end of June with Dr. Rene. Pat North, RN elephone Encounter - Wagner Manzo - 05/29/2012 1508 EDT Labs have been drawn today at 2:30. Please call her on her cell if you need to reach her, she will be traveling to [place] Friday if you need to reach her. documented in this encounter Plan of Treatment Upcoming Encounters Date Type Specialty Care Team Description 12/18/2022 Ancillary Procedure Cardiology 12/18/2022 Office Visit Cardiology Bg Kelsey MD 111 [facility], Level 1 [place] [address] (Wo rk) documented as of this encounter Procedures Procedure Name Priority Date/Time Associated Diagnosis Comme nts COMPLETE BLOOD COUNT AND Routine 05/29/2012 Res ults for this DIFFERENTIAL procedure are i n the results section . documented in this encounter Results HEMAGRAM AND DIFFERENTIAL (05/29/2012) Pathologist Sig nature WBC, External 9.95 [facility] RBC, External 4.56 [facility] Hemoglobin, External 13.4 [facility] HCT, External 37.0 [facility] MCV, External 81.1 [facility] MCH, External 29.4 [facility] MCHC, External 36.2 [facility] PLT, External 231 [facility] RDW-CV, External [facility] Neutrophils, External 47.8 [facility] Lymphocytes, External 40.4 [facility] Monocytes, External 10.4 [facility] Eosinophils, External 1.1 [facility] Basophils, External [facility] ABS Neutrophils, 4.76 [facility] ABS Lymphs, External 4.02 [facility] ABS Monocytes, 1.03 [facility] ABS Eosinophils, 0.11 [facility] ABS Basophils, [facility] Specimen Blood specimen (specimen) Performing Organization Address City/State/ZIP Code Phon e Number [facility] documented in this encounter Visit Diagnoses Not on filedocumented in this encounter Care Teams Manager Balance Relationship Specialty Start Date End Date Sherman King MD PCP - General 05/24/10 07/01/[address] [place] [address] Sully Baldwin VP COMPLIANCE Nurse Practitioner 09/05/[address] [place] [phone] documented as of this encounter
--- OUTSIDE RECORDS SUMMARY | 2022-05-10 08:29 | XMS_ITS | Encounter Summary ---
:2000 Author Organization [facility] Address [address] [place] [address] Care Team Providers Name Role Phone Sherman King MD Primary Care Provider Sully Baldwin COOK HOUSE SUPERVISOR Unavailable Reason for Visit Reason Onset Date Comments Appointment Related 10/14/2011 Encounter Details Date Type Department Care Team Description 10/14/2011 Telephone [facility] Related [facility] Pediatric [address] [place] [address] Hematology & Oncology [facility] [phone] [place] [address] [place] [address] [phone] Social History Tobacco Use Types Packs/Day Years Used Date Never Smoker Sex Assigned at Date Recorded Not on file documented as of this encounter Miscellaneous Notes Telephone Encounter - Farhana Soares - 10/14/2011 1039 EST Spoke with mother and she explained that they were just back from vacation and that she really did not want him to miss more school. Reviewed available appointments and she decided to keep the one for noon on 10/15/11. elephone Encounter - Oneyda Sanchez - 10/14/2011 0848 EST Jaswinder's mother is calling to verify next visit, state she did not know appt had been rescheduled and would like ot change time. Please call. documented in this encounter Plan of Treatment Upcoming Encounters Date Type Specialty Care Team Description 12/18/2022 Ancillary Procedure Cardiology 12/18/2022 Office Visit Cardiology Bg Kelsey MD [address] [facility], Level 1 [place], [place] [phone] (Wo rk) documented as of this encounter Visit Diagnoses Not on filedocumented in this encounter Care Teams Apigee Developer Relationship Specialty Start Date End Date Sherman King MD PCP - General 05/24/10 07/01/12 [place] [phone] Sully Baldwin COOK HOUSE SUPERVISOR Nurse Practitioner 09/05/10 [address] [place] [address] documented as of this encounter
--- OUTSIDE RECORDS SUMMARY | 2022-05-10 08:29 | XMS_ITS | Encounter Summary ---
:2000 Author Organization [facility] Address [address] [place] [address] Care Team Providers Name Role Phone Sherman King MD Primary Care Provider Sully Baldwin DECORATING INSPECTOR Unavailable Reason for Visit Reason Onset Date Comments Labs Only 12/06/2010 Encounter Details Date Type Department Care Team Description 12/06/2010 Orders Only [facility] Melis Pat North, sandwich machine [facility] [address] [place] [address] leukemia in remission Hematology & Oncology [place], [place] [address] ([facility]) (Primary - [facility]) [address] [place], [place] [phone] Social History Tobacco Use Types Packs/Day Years Used Date Never Smoker Sex Assigned at Date Recorded Not on file documented as of this encounter Plan of Treatment Upcoming Encounters Date Type Specialty Care Team Description 12/18/2022 Ancillary Procedure Cardiology 12/18/2022 Office Visit Cardiology Bg Kelsey MD [address] [facility], Level 1 [place], [place] [address] (Wo rk) documented as of this encounter Visit Diagnoses Diagnosis Acute myeloid leukemia in remission ([facility]) (HCC) - Primary Acute myeloid leukemia in remission documented in this encounter Orders Lab Orders Without Results Count Last Ordered Date Fir st Ordered Date HEMAGRAM AND DIFFERENTIAL 1 12/06/2010 documented in this encounter Care Teams Novelties Sales Representative Relationship Specialty Start Date End Date Sherman King MD PCP - General 05/24/10 07/01/12 [place] [address] Sully Baldwin DECORATING INSPECTOR Nurse Practitioner 09/05/[address] [place] [phone] documented as of this encounter
--- OUTSIDE RECORDS SUMMARY | 2022-05-10 08:29 | XMS_ITS | Encounter Summary ---
:2000 Author Organization [facility] Address [address] [place] [address] Care Team Providers Name Role Phone Sherman King MD Primary Care Provider Sully Baldwin CELERY STRIPPER Unavailable Reason for Visit Reason Onset Date Comments Surveillance 01/22/2012 Encounter Details Date Type Department Care Team Description 01/22/2012 Orders Only [facility] Javier's Pat North RN Acute myeloblastic leukemia ([facility] [place] [place] Hospital Pediatric [address] [place] [address] Personal history of chemotherapy Hematology & [place] [address] Oncology - [address] [address] Social History Tobacco Use Types Packs/Day Years Used Date Never Smoker Sex Assigned at Date Recorded Not on file documented as of this encounter Plan of Treatment Upcoming Encounters Date Type Specialty Care Team Description 12/18/2022 Ancillary Procedure Cardiology 12/18/2022 Office Visit Cardiology Bg Kelsey MD [address] [place] [address], Level 1 [place], [place] [phone] (Wo rk) Scheduled Orders Name Type Priority Associated Diagnoses Order S chedule EKG 12-LEAD ECG Routine Acute myeloblastic leukemia Expected: 03/05/2012 ([facility] [place] [place]) (Approximate) Personal history of chemothe rapy documented as of this encounter Procedures Procedure Name Priority Date/Time Associated Diagnosis Comme nts ECHOCARDIOGRAM Routine 03/04/2012 13:00 EDT Acute myeloblastic Results for this leukemia ([facility]) procedure are in Personal history of the resu lts chemotherapy section. documented in this encounter Results ECHOCARDIOGRAM (03/04/2012 13:00 EDT) Specimen Narrative CARDIOLOGY - 03/04/2012 14:02 EDT Patient Name: DIANA ROSS Chart Number: [id number] Site Location: Date of Appt: Sunday, March 04, 2012, 1:00 PM Pediatric Echocardiogram Report Demographics and Visit Data: : 2000. ??Age: 11y/10m/0d. ??Sex: M. ??BSA (m 2): 1.41. ?? Height (cm): 149.8. ??Weight (kg): 47.5. ??BMI (kg/m 2): 21.17. ?? [facility] ??Height Centile: 98.57. ?? Weight Centile: 99.08. ??Person requesti ng test: LAUREN PAINTING,ELLE Woo. ?? Tortilla Maker: Lexy Payan. ??Reason for test: 205.00-ACUTE MYELOID LEUKEMIA, WITHOUT MENTION OF HAVING ACHI EVED [id number] V87.41-PERSONAL. ?? Procedure Description: ECHOCARDIOGRAM. ? ? Summary: [...] ent, ruled out >> Intact Ventricular Septum >> Normal Right Ventricle ?? Conotruncus: ?? >> Aortic regurgitation, ruled out No aortic regurgitation seen. ?? >> Normal Pulmonary Valve >> Normal Aortic Valve ?? Great Arteries: ?? >> Normal Pulmonary Artery >> Normal Aorta >> Normal Aortic Arch ?? Pericardium: ?? (No abnormalities seen) ?? Other: ?? >> S/p adriamycin therapy >> Intracardiac mass, ruled out No intracardiac mass or thrombus seen. ? Measures: ?? Systemic Arterial Function: ?? Name ?Value ?Units ?Z-Score ?Min ?Max ?? Systolic BP ? 1 01 ?mmHg ? -0.21 ?81.46 ??125.21 ?? Diastolic BP ?5 7 ? mmHg ? 0.44 ? 34.41 ??71.31 ?? Pulse Pressure ?44 .00 ?mmHg ? Mean BP ? 71.7 ? mmHg ? -0.43 ?56.53 ??95.32 ? 2D: ?? Name ?Value ?Units ?? LV Diastolic Volume Index ? 69.63 ?ml/m 2 ? (Bullet) ?? M-Mode: ?? Name ?Value ?Units ?Z-Score ?Min ?Max ?? LV Diastolic Septal ? 0.78 ? cm ? -0.52 ?0.6 ?1.09 ?? Thickness M-Mode LV Diastolic ? 4.85 ? cm ? 0.93 ? 3.91 ?? 5.19 ?? Dimension LV Diastolic Wall ? 0.69 ? cm ? -0.98 ?0.58 ?? 1.01 ?? Thickness M-Mode LV Systolic ?3.18 ? cm ? 0.84 ? 2.34 ?? 3.52 ?? Dimension LV Fractional Shortening ?34.43 ?% ?-0.34 ?29.63 ??42.56 ?? M-Mode LV Mass / Height 2 ? 51.56 ?g/m 2 ? Relative Wall Thickness ? 0.30 ? LV Systolic Function: ?? Name ?Value ?Units ?Z-Score ?Min ?Max ?? LV Diastolic Volume ? 98.18 ?ml ? -0.46 ?73.22 ??138.56 ?? (Bullet) LV Systolic Volume ?48.1 1 ?ml ? 0.99 ? 25.22 ??59.48 ?? (Bullet) LV Ejection Fraction ?0.51 ?-2.45 ?0.53 ?? 0.73 ?? (Bullet) 2D LV Mass ? 101.34 ?? gm ? 0.58 ? 65.57 ??124.6 ?? 2D LV Volume Index ?69.6 3 ? 2D LV Mass Index ?71. 87 ?g/m 2 ? Endocardial FS ?34 .43 ?% ?-0.34 ?29.63 ??42.56 ?? FS Vs Stress ?3 4.43 ?% ? Cardiac Geometry: ?? Name ?Value ?Units ?Z-Score ?Min ?Max ?? M-Mode LV Mass ?11 5.71 ?? gm ? 0.01 ? 78.81 ??169.18 ?? M-Mode LV Mass Index ?82.06 ?g/m 2 ? LV Diastolic Long [place] ?8.49 ? cm ? Epicardial Diameter LV Diastolic Epicardial ? 28.20 ?cm 2 ? Cross-Sectional Area LV Systolic [place] ? 6.31 ? cm ? Diameter LV Systolic ? 9 .15 ? cm 2 ? Cross-sectional Area LV Diastolic [place] ?7.70 ? cm ? 1.13 ? 5.9 ?8.19 ?? Diameter LV Diastolic ?1 5.30 ?cm 2 ? Cross-sectional Area LV Midwall Diastolic ?5.54 ? cm ? 0.6 ?4.69 ?? 5.99 ?? Dimension 2D Left Atrial Diameter ? 2.61 ? cm ? M-Mode LV Mass / Height ? 77.24 ?g/m ? M-Mode LV Mass / ?38. 86 ?g/m ? 19.4 ?? 38.6 ?? Height 2.7 ?? Aorta: ?? Name ?Value ?Units ?Z-Score ?Min ?Max ?? Ao Annulus Diameter ? 1.70 ? cm ? -0.94 ?1.53 ?? 2.2 ?? Ao Root Diameter ?2.1 0 ? cm ? -1.33 ?1.93 ?? 2.97 ?? AV Area (using Diameter) ?2.27 ? cm 2 ? Sinotubular Junction ?1.88 ? cm ? -1.01 ?1.66 ?? 2.58 ?? Diameter Ascending Ao Diameter ? 2.05 ? cm ? -0.68 ?1.71 ?? 2.74 ? Analysis Aortic Valve Doppler: ?? Name ?Value ?Units ?? AV Area (using Diameter) ?2.27 ? cm 2 ? [employer] [place] Name: MARY KAY FUENTES MD Date/time of reading: Mar 04 2012 - 2:02:04 PM Report created at 2:02:46 PM on March 04, 2012 Report Number: Note:Study interpreted at [facility] unless otherwise noted Procedure Note 03/04/2012 Patient Name: DIANA ROSS Chart Number: [id number] Site Location: Date of Appt: Sunday, March 04, 2012, 1:00 PM Pediatric Echocardiogram Report Demographics and Visit Data: : 2000. Age: 11y/10m/0d. Sex: M. BSA (m 2): 1.41. Height (cm): 149.8. Weight (kg): 47.5. B WA (kg/m 2): 21.17. [facility]. Height Centile: 98.57. Weight Centile: 99.08. Person requesting test: ELLE AGUILAR MD Tortilla Maker: Lexy Payan. Reason fo r test: 205.00-ACUTE MYELOID LEUKEMIA, WITHOUT MENTION OF HAVING ACHI EVED [id number]-CM V87.41-PERSONAL. Procedure Description: ECHOCARDIOGRAM. Summary: Status post adriamycin [...] ent, ruled out >> Intact Ventricular Septum >> Normal Right Ventricle Conotruncus: >> Aortic regurgitation, ruled out No aortic regurgitation seen. >> Normal Pulmonary Valve >> Normal Aortic Valve Great Arteries: >> Normal Pulmonary Artery >> Normal Aorta >> Normal Aortic Arch Pericardium: (No abnormalities seen) Other: >> S/p adriamycin therapy >> Intracardiac mass, ruled out No intracardiac mass or thrombus seen. Measures: Systemic Arterial Function: Name Value Units Z-Score Min Max Systolic BP 101 mmHg -0.21 81.46 125.21 Diastolic BP 57 mmHg 0.44 34.41 71.31 Pulse Pressure 44.00 mmHg Mean BP 71.7 mmHg -0.43 56.53 95.32 2D: Name Value Units LV Diastolic Volume Index 69.63 ml/m 2 (Bullet) M-Mode: Name Value Units Z-Score Min Max LV Diastolic Septal 0.78 cm -0.52 0.6 1. 09 Thickness M-Mode LV Diastolic 4.85 cm 0.93 3.91 5. 19 Dimension LV Diastolic Wall 0.69 cm -0.98 0.58 1.0 1 Thickness M-Mode LV Systolic 3.18 cm 0.84 2.34 3.5 2 Dimension LV Fractional Shortening 34.43 % -0.34 2 9.63 42.56 M-Mode LV Mass / Height 2 51.56 g/m 2 Relative Wall Thickness 0.30 LV Systolic Function: Name Value Units Z-Score Min Max LV Diastolic Volume 98.18 ml -0.46 73.22 138.56 (Bullet) LV Systolic Volume 48.11 ml 0.99 25.22 5 9.48 (Bullet) LV Ejection Fraction 0.51 -2.45 0.53 0.7 3 (Bullet) 2D LV Mass 101.34 gm 0.58 65.57 124.6 2D LV Volume Index 69.63 2D LV Mass Index 71.87 g/m 2 Endocardial FS 34.43 % -0.34 29.63 42.56 FS Vs Stress 34.43 % Cardiac Geometry: Name Value Units Z-Score Min Max M-Mode LV Mass 115.71 gm 0.01 78.81 169. 18 M-Mode LV Mass Index 82.06 g/m 2 LV Diastolic Long [place] 8.49 cm Epicardial Diameter LV Diastolic Epicardial 28.20 cm 2 Cross-Sectional Area LV Systolic [place] 6.31 cm Diameter LV Systolic 9.15 cm 2 Cross-sectional Area LV Diastolic Long [place] 7.70 cm 1.13 5.9 8.19 Diameter LV Diastolic 15.30 cm 2 Cross-sectional Area LV Midwall Diastolic 5.54 cm 0.6 4.69 5. 99 Dimension 2D Left Atrial Diameter 2.61 cm M-Mode LV Mass / Height 77.24 g/m M-Mode LV Mass / 38.86 g/m 19.4 38.6 Height 2.7 Aorta: Name Value Units Z-Score Min Max Ao Annulus Diameter 1.70 cm -0.94 1.53 2 .2 Ao Root Diameter 2.10 cm -1.33 1.93 2.97 AV Area (using Diameter) 2.27 cm 2 Sinotubular Junction 1.88 cm -1.01 1.66 2.58 Diameter Ascending Ao Diameter 2.05 cm -0.68 1.71 2.74 Analysis Aortic Valve Doppler: Name Value Units AV Area (using Diameter) 2.27 cm 2 [employer] Name: MARY KAY FUENTES MD Date/time of reading: Mar 04 2012 - 2:02:04 PM Report created at 2:02:46 PM on March 04, 2012 Report Number: Note:Study interpreted at [facility] unless otherwise noted Performing Organization Address City/State/ZIP Code Phon e Number [facility] documented in this encounter Visit Diagnoses Diagnosis Acute myeloblastic leukemia (HCC) Acute myeloid leukemia, without mention of having achieved remission Personal history of chemotherapy Personal history of antineoplastic chemo therapy documented in this encounter Care Teams Glove Parts Inspector Relationship Specialty Start Date End Date Sherman King MD PCP - General 05/24/10 07/01/[address] [place] [address] [place] [phone] Sully Baldwin CELERY STRIPPER Nurse Practitioner 09/05/[address] [place] [phone] documented as of this encounter
--- OUTSIDE RECORDS SUMMARY | 2022-05-10 08:29 | XMS_ITS | Encounter Summary ---
:2000 Author Organization [facility] Address [address] [place] [address] Care Team Providers Name Role Phone Sully Baldwin NEWSPAPER OR PERIODICAL EDITOR Unavailable Erika Chairez MD Primary Care Provider Unavailable Reason for Visit Reason Comments Follow-up AML off therapy Encounter Details Date Type Department Care Team Description 10/27/2012 Office Visit [facility] Dudley Rene MD History of chemotherapy (Primary Dx); Hospital Pediatric [address] [place] [address] AML (ac kirit myeloid leukemia) in remission ([facility]); Hematology & [address] Obsessive behavior; Oncology - [facility] [phone] [place] [address] [place] [address] Social History Tobacco Use Types Packs/Day Years Used Date Never Smoker Sex Assigned at Date Recorded Not on file documented as of this encounter Last Filed Vital Signs Vital Sign Reading Time Taken Comments Blood Pressure 114/56 10/27/2012 1031 EST Pulse 85 10/27/2012 1031 EST Temperature 36.5 ??C (97.7 ??F) 10/27/2012 1031 EST Respiratory Rate - - Oxygen Saturation - - Inhaled Oxygen Concentration - - Weight 53.2 kg (117 lb 4.6 oz) 10/27/2012 1031 EST Height 154 cm (5' 0.63) 10/27/2012 1031 EST Body Mass Index 22.43 10/27/2012 1031 EST documented in this encounter Patient Instructions Patient InstructionsDudley Rene MD - 10/27/2012 11:40 EST Call Pediatric Hematology/Oncology 24 hours a day at or ext [phone] forthe following concerns: ?? Fevers . ?? Bruising/bleeding (low platelets). ?? Tiredness (anemia). ?? Any other questions or concerns. Please remember to bring your medications with you to your next visit documented in this encounter Progress Notes Dudley Rene MD - 11/03/2012 0902 EST Pediatric Hem/Onc Followup Visit Reason for visit: Followup of AML off therapy HISTORIAN: Mother and patient. HISTORY OF PRESENT ILLNESS: Jaswinder Ross is an 12 y.o. 6 m.o. 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 He was enrolled on the [facility] protocol AAML 0531 and was randomized to the experimental gemtuzumab arm. 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 He tolerated therapy very well with the expected complications of myelosuppression. He completed therapy in 10/2008 and remains in his first remission. INTERVAL HISTORY: Since his last visit in June,, Jaswinder continues to do well at home. He hashad no significant injuries, accidents or hospitalizations. Immunizations are UTD per parent. He is active, energetic and has an excellent appetite. Denies bruising, bleeding or petechiae. He is in the4th grade this year with an IEP in place for extra assistance in math. He has had neurocognitive testing previously at school that showed problems in processing speed, math, attention, memory and fine motor (writing). His mother again notes that he has difficulty getting his thought on paper, but has no difficulty verbalizing ideas. His obsessive compulsive behaviors are better controlled. He is here today for follow up, 4 years after completion of therapy. Past Medical History Diagnosis Date ??? Other complication of labor and delivery, antepartum condition or complication gestational diabetes ??? 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 WBC 49,000, LOAN OPERATIONS MANAGER negative, testicles negative. Chromosomes t(8:21), (q22:q22), 9q [...] noted above. Lives with his parents in [place], [place].He is in the 4th grade in a standard classroom. REVIEW OF [...] 100 Pain: none reported Physical Exam: BP 114/56 Pulse 85 Temp(Src) 36.5 ??C (97.7 ??F) (Tympanic) Ht 154 cm (60.63) Wt 53.2 kg (117 lb 4.6 oz) BMI 22.43 kg/m2 General: Well-developed, well nourished, no acute distress. [...] CBC: Lab Results Component Value Date WBC 7.53 10/27/2012 RBC 4.46 10/27/2012 HGB 12.9 10/27/2012 HCT 37.0 10/27/2012 MCV 83 10/27/2012 MCH 28.9 10/27/2012 MCHC 34.9 10/27/2012 PLT 188 10/27/2012 NEUTROABS 2.87 10/27/2012 BMP: Lab Results Component Value Date NA 143 10/27/2012 K 4.6 10/27/2012 CL 104 10/27/2012 CO2 26 10/27/2012 BUN 14 10/27/2012 CREATININE 0.52 10/27/2012 GLUCOSEFINGE 80 10/02/2008 CALCIUM 9.2 10/27/2012 MG 1.6* 10/13/2008 PHOS 5.5* 10/13/2008 LABALBU 4.4 10/27/2012 LFT: Lab Results Component Value Date TBIL <0.5 10/27/2012 ALKPHOS 250 10/27/2012 AST 32 10/27/2012 ALT 31 10/27/2012 IMPRESSION: Jaswinder is an 12 y.o. 6 m.o. boy with a history of AML, treated per [id number] protocol with intensive chemotherapy including gemtuzumab. Now off therapy for 4 years in first continued remission. Patient Active Problem List Diagnoses ??? Obsessive behavior ??? Compulsive behavior ??? Dry skin dermatitis ??? History of chemotherapy ??? Learning difficulty ??? 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n ??? Health education/counseling ??? Osteochondroma of tibia PLAN: AML - Off therapy. - CBC with differential obtained today within normal limits. - No signs or symptoms suggestive of disease recurrence. Mother signed consent for [facility] followup study\ - Return to clinic in 6 months for history, physical examination and labs. Every 6 months X 2, thenyearly. Obsessive compulsive behavior - Decreased obsessive compulsive [...] winter. - Continue Eucerin cream as needed. Late Effects - Potential late effects of therapy include, but are not limited to the following: Cardiomyopathy: At risk for cardiomyopathy related to anthracycline exposure. Jaswinder received 492 mg/m2 of anthracyclines throughout his therapy. The maximum lifetime dose of anthracyclines is 500 mg/m2, placing him at higher risk for cardiotoxicity. Recommend echocardiograms & EKG's performed lorenza yearly basis. Last on 02/2012. Due 02/2013. Bone Health reiewed importance of diet, exercise Neurocognitive effects: At risks for neurocognitive effects [...] therapy and health education as noted above. Pt seen and examined in person. Discussed plan with pt's family, staff, and nursing staff. Thanks, Ar Rene MD Pedi Hem/Onc beeper [phone] documented in this encounter Plan of Treatment Upcoming Encounters Date Type Specialty Care Team Description 12/18/2022 Ancillary Procedure Cardiology 12/18/2022 Office Visit Cardiology Bg Kelsey MD [address] [facility], Level 1 [place], [place] [phone] (Wo rk) documented as of this encounter Visit Diagnoses Diagnosis History of chemotherapy - Primary Personal history of antineoplastic chemo therapy 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 ([facility]) (HCC) Acute myeloid leukemia in remission Obsessive behavior 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
--- OUTSIDE RECORDS SUMMARY | 2022-05-10 08:29 | XMS_ITS | Encounter Summary ---
:2002 Author Organization [facility] Address [address] [place] [address] Care Team Providers Name Role Phone Sherman King MD Primary Care Provider Sully Baldwin DRY CANS OPERATOR Unavailable Reason for Visit Reason Comments Follow-up AML Encounter Details Date Type Department Care Team Description 08/06[facility]2011 [facility] Acute [facility] leukemia ([facility]); Hospital Pediatric [address] [place] [address] history of chemotherapy; Hematology & Avenue Learning difficulty; Oncology - [facility] [id number] [place] [address] [place] [address] [phone] Social History Tobacco Use Types Packs/Day Years Used Date Never Smoker Sex Assigned at Date Recorded Not on file documented as of this encounter Last Filed Vital Signs Vital Sign Reading Time Taken Comments Blood Pressure 120/65 08/06/2011 0941 EDT Pulse 96 08/06/2011 0941 EDT Temperature 36.1 ??C (97 ??F) 08/06/2011 0941 EDT Respiratory Rate - - Oxygen Saturation - - Inhaled Oxygen Concentration - - Weight 45.3 kg (99 lb 13.9 oz) 08/06/2011 0941 EDT Height 145.9 cm (4' 9.44) 08/06/2011 0941 EDT Body Mass Index 21.28 08/06/2011 0941 EDT documented in this encounter Patient Instructions Patient InstructionsDudley Rene MD - 08/06/2011 10:25 EDT followup in 3 months with blood counts, visit. Then every 6 months. documented in this encounter Progress Notes Dudley Rene MD - 08/06/2011 1110 EDT Comment: re-immunizations Pt is far enough Off therapy to receive any and all immunizations. Discussed flu vaccine this fall, and mother brought in reimmunization schedule. axelsDudley MD - 08/06/2011 1104 EDT REASON FOR VISIT: Follow up for acute myeloid leukemia, monitoring for late effects. Historian: Pt's mother HISTORY OF PRESENT ILLNESS: Jaswinder Ross is an 11 y.o. 3 m.o. 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 He was enrolled on the [facility] protocol AAML 0531 and was randomized to the experimental arm including gemtuzumab (anti CD-33 antibody/toxin). 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 He tolerated therapy very well with the expected complications of myelosuppression, febrile neutropenia. He completed alll therapy as schedule in 04/2008 and has remains in first remission. Since his last visit in March, Jaswinder continues to do well at home. He has had no significant injuries, accidents or hospitalizations. He was seen by his PMD for vague complaints of aches, and transientlethargey in early July, but his blood counts were entirely normal at the time. He continues su very active and energetic and is engaged in soccer, skateboarding, karate. He has an excellent appetite and is growing well. He is in the 4th grade, and is having some difficulties with math, attention, processing speed, memory and fine motor (writing). He has had additional testing and is on an IEP. His previously note obsessive Tendencies are markedly reduced from a year ago, but he continues to have some anxieties. The parents tried to make an appointment with a psychologist near [place], but report that no one called them back Despite 3 attempts to contact the office. His grandmother last fall from a malignancy. FAMILY AND SOCIAL HISTORY: Social history as noted above. Lives with his parents in [place], [place]. He is in the third grade. His father was recently diagnosed with a MRSA infection in his axilla MEDICATIONS: None. REVIEW OF SYSTEMS: General: No [...] bruising, petechiae. Lymph: No lymphadenopathy Skin: No rash, lesions or jaundice. Musculoskeletal: No myalgias, arthralgias. Neuro: No weakness, paresthesias. Endocrine: No polyuria/polydipsia. Psych: Fewer obsessive compulsive type behaviors, better controlled at school than at home as noted above in HPI. Physical Exam: BP 120/65 Pulse 96 Temp(Src) 36.1 ??C (97 ??F) (Tympanic) Ht 145.9 cm (57.44) Wt 45.3 kg (99 lb 13.9 oz) BMI 21.28 kg/m2 General: Well developed, well nourished, no acute distress. Very cooperative with examination. Wt has increased faster than height, both are >90%. Eyes: PERRLA, EOMI, sclera anicteric. Ears: Tympanic membranes clear, non-bulging. Nose: Mucosa and turbinates pink, septum midline. Mouth: Lips pink, good dentition. Throat: Oral mucosa pink and moist. No ulcerations, exudates. Neck: No thyromegaly. Chest: Old well healed chest scar from previously removed central line. Resp: No retractions or flaring. clear to auscultation, no crackles, wheezes. CV: Regular S1, S2, no murmur. Peripheral perfusion normal. No edema. Abdomen: Soft non tender, + BS, No HSM Male : Testicles soft and smooth 2 mL bilaterally. Red stage 1. Lymph: No cervical, supraclavicular, axillary, inguinal lymphadenopathy. Skin: Otherwise skin without rashes. Neurologic: Cranial nerves II - IX intact, symmetric. Deep tendon reflexes 2+ bilaterally. Cerebellar good finger to nose. Strength 5/5 upper & lower extremities. Good balance Musculo: Gait coordinated and smooth. No misalignment, defects, deformities. Full ROM symmetric tone. LABORATORY DATA: From [facility] on 07/18/11: WBC 9.57 HgB 13.1 plts 223 Nl indices 43 polys 46 lymphs 8 monos IMPRESSION: Jaswinder is an 11 y.o. 3 m.o. male with a history of AML, treated per [id number] protocol with intensive chemotherapy including gemtuzumab. Now off therapy for 2yrs 9 mo. in continued remission. PLAN: 1. AML - AML 2 3/4 years off therapy. - CBC with differential q 3 mo. - No signs or symptoms suggestive of disease recurrence. - Return to clinic in 3 months for history, physical examination and labs, then q 6 mo x 2 then yearly. Discussed AML, results of gemtuzimab trial. 2. Obsessive compulsive behavior - Doing better with parental interventions. Discussed referral if his behaviors become worse again. 3. Right tibia lesion - 2 cm mass on right tibia diagnosed as osteochondroma with no treatment needed. - Follow up with Dr Claros in 1 year as recommended. 4. Late Effects - Potential late effects of his aggressive therapy are significant include, but are not limited to the following: Cardiomyopathy: Received nearly 500 mg/m2 anthracycline: discussed yearly ECHO, symptoms of cardiacdecompensation, heart healthy behaviors. Neurocognitive effects: At risks for neurocognitive effects secondary to systemic and intrathecal Rx. He received relatively limited IT meds, but has behaviors suggestive for neuro late effects. School seems to be adressing this appropriately at this time. Liver, kidney toxicity: At risk for liver and kidney toxicity secondary to high dose chemotherapy. Obtain comprehensive metabolic panel at next visit in 3 months. Secondary malignancy. There is the small risk for secondary leukemias related to etoposide exposure. CBC with differential obtained today within normal limits. Obtain CBC with differential at next visit in 4 months. Bone health and Fertility were also addressed At today's visit. DISPOSITION: Return to clinic in 3 months for history, physical, labs. Family aware to call with questions or concerns in the interim. Pt seen and examined in person. Discussed plan with pt's family, staff, and nursing staff. Thanks, Ar Rene MD Pedi Hem/Onc beeper [phone] documented in this encounter Plan of Treatment Upcoming Encounters Date Type Specialty Care Team Description 12/18/2022 Ancillary Procedure Cardiology 12/18/2022 Office Visit Cardiology Bg Kelsey MD [address] [facility] [address] [place] [address] (Wo rk) documented as of this encounter Visit Diagnoses Diagnosis Acute myeloblastic leukemia (HCC) Acute myeloid leukemia, without mention of having achieved remission Personal history of chemotherapy Personal history of antineoplastic chemo therapy Learning difficulty Unspecified delay in development Obsessive behavior Obsessive-compulsive disorders documented in this encounter Care Teams Vehicle Controls Engineer Relationship Specialty Start Date End Date Sherman King MD PCP - General 05/24/10 07/01/[address] [place] [address] Sully Baldwin, DRY CANS OPERATOR Nurse Practitioner 09/05/10 [address] [place] [address] documented as of this encounter
--- OUTSIDE RECORDS SUMMARY | 2022-05-10 08:29 | XMS_ITS | Encounter Summary ---
:2002 Author Organization [facility] Address [address] [place] [address] Care Team Providers Name Role Phone Sherman King MD Primary Care Provider Sully Baldwin RUBBER ATTACHER Unavailable Reason for Visit Reason Onset Date Comments Labs Only 03/04/2012 Encounter Details Date Type Department Care Team Description 03/04/2012 Orders Only [facility], bath house attendant myeloblastic Hospital Pediatric [address] [place] [address] leukemia ([facility]) [place] & [place] [address] (Primar y Dx) Oncology - [address] [phone] Social History Tobacco Use Types Packs/Day Years Used Date Never Smoker Sex Assigned at Date Recorded Not on file documented as of this encounter Plan of Treatment Upcoming Encounters Date Type Specialty Care Team Description 12/18/2022 Ancillary Procedure Cardiology 12/18/2022 Office Visit Cardiology Bg Kelsey MD [address] [place] [address], [facility], Level [address] [place] [address] (Wo rk) documented as of this encounter Results HEMAGRAM AND DIFFERENTIAL (03/04/2012 12:53 EDT) Pathologist [facility] nature WBC 9.56 4.5 - 13.5 K/cmm [facility] RBC 4.54 4.00 - 6.20 M/cmm [facility] Hemoglobin 13.1 11.5 - 15.5 [...] [facility] ABS Eosinophils 0.16 K/cmm [facility] ABS Basophils 0.06 K/cmm [facility] Type of Diff: Automated [facility] Specimen Blood specimen (specimen) Performing Organization Address City/State/ZIP Code Phon e Number [facility] [address] [place] [address] SERVICES [facility] [address] [place] [address] documented in this encounter Visit Diagnoses Diagnosis Acute myeloblastic leukemia (HCC) - Prim david Acute myeloid leukemia, without mention of having achieved remission documented in this encounter Care Teams Control Room Supervisor Relationship Specialty Start Date End Date Sherman King MD PCP - General 05/24/10 07/01/12 [place] [phone] Sully Baldwin, RUBBER ATTACHER Nurse Practitioner 09/05/10 [address] [place] [phone] documented as of this encounter
--- OUTSIDE RECORDS SUMMARY | 2022-05-10 08:29 | XMS_ITS | Encounter Summary ---
:2002 Author Organization [facility] Address [address] [place] [address] Care Team Providers Name Role Phone Sully Baldwin ROASTMASTER Unavailable Unknown, Provider Primary Care Provider Reason for Visit Reason Comments Follow-up AML off therapy Encounter Details Date Type Department Care Team Description 05/06/2013 [facility] (Primary Dx); Hospital Pediatric [address] [place] [address] History of chemotherapy; Hematology & Avenue Learning difficulty; Oncology - [place], [place] Compulsive behavior; [place] [phone] Acute myeloid leukemia in remission ([facility]); [address] [place] [address] [place] [address] [phone] Social History Tobacco Use Types Packs/Day Years Used Date Never Smoker Sex Assigned at Date Recorded Not on file documented as of this encounter Last Filed Vital Signs Vital Sign Reading Time Taken Comments Blood Pressure 111/57 05/06/2013 1242 EDT Pulse 88 05/06/2013 1242 EDT Temperature 36.2 ??C (97.2 ??F) 05/06/2013 1242 EDT Respiratory Rate - - Oxygen Saturation - - Inhaled Oxygen Concentration - - Weight 57.3 kg (126 lb 5.2 oz) 05/06/2013 1242 EDT Height 158 cm (5' 2.21) 05/06/2013 1242 EDT Body Mass Index 22.95 05/06/2013 1242 EDT documented in this encounter Patient Instructions Patient InstructionsDudley Rene MD - 05/06/2013 13:52 EDT Call Pediatric Hematology/Oncology 24 hours a day at or ext [phone] forthe following concerns: Unexplained fevers Unexplained new pains New unintended weight loss Bruising/bleeding (low platelets). Tiredness (anemia). Any other questions or concerns. documented in this encounter Progress Notes Dudley Rene MD - 05/07/2013 0315 EDT Pediatric Hem/Onc Followup Visit Reason for visit: Followup of AML off therapy HISTORIAN: Mother and patient. HISTORY OF PRESENT ILLNESS: Jaswinder Ross is an 13 y.o. 0 m.o. 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 He was enrolled on the [facility] protocol AAML 0531 and was randomized to the experimental gemtuzumab arm. His therapy included 492 mg/m2 of anthracyclines (doxorubicin equivalent). He tolerated therapy very well with the expected complications of myelosuppression. He completed therapy in 10/2008 and remains in his first remission. He is here today for routine followup 4 1/2 years after completing therapy. INTERVAL HISTORY: Since his last visit in October,, Jaswinder continues to do well at home. He has had no significant injuries, accidents or hospitalizations. Immunizations are UTD per parent. He is active, energetic and has an excellent appetite. Denies bruising, bleeding or petechiae. He is in the 4th grade this year with an IEP in place for extra assistance in math, but has Graduated to a non-IEP educational plan for next year because of improved performance. His obsessive compulsive behaviors are much better controlled, and he is currently on no meds for these. Past Medical History Diagnosis Date ??? Other complication of labor and delivery, antepartum condition or complication gestational diabetes ??? 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 WBC 49,000, CONTRACT PARALEGAL negative, testicles negative. Chromosomes t(8:21), (q22:q22), 9q [...] family history since last visit in October of 2012. SOCIAL HISTORY: Social history as noted above. Lives with his parents in [place], [place].He is a rising 5th grader in a standard classroom. REVIEW OF SYSTEMS: [...] 100 Pain: none reported Physical Exam: BP 111/57 Pulse 88 Temp(Src) 36.2 ??C (97.2 ??F) (Tympanic) Ht 158 cm (62.21) Wt 57.3 kg (126 lb 5.2 oz) BMI 22.95 kg/m2 Both height and weight are above the 95% but tracking in parallel. General: Well-developed, well nourished, no acute distress. [...] CBC: Lab Results Component Value Date WBC 9.10 05/06/2013 RBC 4.65 05/06/2013 HGB 13.4 05/06/2013 HCT 37.9 05/06/2013 MCV 81 05/06/2013 MCH 28.9 05/06/2013 MCHC 35.5 05/06/2013 PLT 217 05/06/2013 NEUTROABS 4.03 05/06/2013 BMP: Lab Results Component Value Date NA 142 05/06/2013 K 4.3 05/06/2013 CL 102 05/06/2013 CO2 25 05/06/2013 BUN 16 05/06/2013 CREATININE 0.51 05/06/2013 GLUCOSEFINGE 80 10/02/2008 CALCIUM 9.6 05/06/2013 MG 1.6* 10/13/2008 PHOS 5.5* 10/13/2008 LABALBU 4.8 05/06/2013 LFT: Lab Results Component Value Date TBIL 0.6 05/06/2013 ALKPHOS 237 05/06/2013 AST 30 05/06/2013 ALT 29 05/06/2013 IMPRESSION: Jaswinder is an 13 y.o. 0 m.o. boy with a history of AML, treated per [id number] protocol with intensive chemotherapy including gemtuzumab. Now off therapy for 4 1/2 years in first continued remission. Patient Active [...] disease recurrence. - Return to clinic in 6 months for history, physical examination and labs and then yearly. Obsessive compulsive behavior - Decreased obsessive compulsive behaviors noted. Osteochondroma of right tibia - Seen by Dr Claros 12/2010. - 2 cm mass right tibial osteochondroma diagnosed by Dr Claros with no treatment necessary. Recommended follow up in 1 year. Late Effects - Potential late effects of therapy include, but are not limited to the following: Cardiomyopathy: At risk for cardiomyopathy related to anthracycline exposure. Jaswinder received 492 mg/m2 of anthracyclines throughout his therapy. The maximum lifetime dose of anthracyclines is 500 mg/m2, placing him at higher risk for cardiotoxicity. Recommend echocardiograms & EKG's performed lorenza yearly basis. Had ECHO today which was normal. Bone Health reiewed importance of diet, exercise [...] Thanks, Ar Rene MD Pedi Hem/Onc beeper [phone] I spent a total of 30 minutes in face to face time with this patient today and 20 minutes of that time was spent counseling the patient on late effects of therapy and health education as noted above. documented in this encounter Procedure Notes CLINICAL MICROBIOLOGIST, SCAN 2 - 05/11/2013 1345 EDTAssociated Order(s): ECG REPORT - SCANNED documented in this encounter Plan of Treatment Upcoming Encounters Date Type Specialty Care Team Description 12/18/2022 Ancillary Procedure Cardiology 12/18/2022 Office Visit Cardiology Bg Kelsey MD [address] [facility], [facility], Level [address] [place], [place] [address] (Wo rk) documented as of this encounter Procedures Procedure Name Priority Date/Time Associated Comments Diagnosis ECG REPORT - SCANNED 05/11/2013 13:45 Res ults for this EDT procedure are i n the results section. SLIDE REQUEST Routine 05/06/2013 14:12 Results fo r this EDT procedure are i n the results section. DIFFERENTIAL Routine 05/06/2013 14:12 Results for this EDT procedure are i n the results section. COMPLETE BLOOD COUNT Routine 05/06/2013 14:12 Res ults for this EDT procedure are i n the results section. COMPLETE BLOOD COUNT Routine 05/06/2013 14:12 Acute myeloid AND DIFFERENTIAL EDT leukemia in remission ([facility]) COMPREHENSIVE Routine 05/06/2013 14:12 Acute myeloid Results f or this METABOLIC PANEL (CMP) EDT leukemia in proced ure are in remission ([facility]) the resu lts section. documented in this encounter Results ECG REPORT - SCANNED (05/11/2013 13:45 EDT) Specimen Narrative 05/12/2013 7:18 EDT Procedure Note CLINICAL MICROBIOLOGIST, SCAN 2 - 05/11/2013 13:45 EDT SLIDE REQUEST (05/06/2013 14:12 EDT) Pathologist Sig nature Note A smear is filed in the [facility] Specimen Performing Organization Address City/State/ZIP Code Phon e Number [facility] [address] [place] [address] SERVICES [facility] [address] [place] [address] DIFFERENTIAL (05/06/2013 14:12 EDT) Pathologist Sig nature Neutrophils 44.2 % [facility] Lymphocytes 44.0 % [facility] Monocytes 9.3 % [facility] Eosinophils 2.3 % [facility] Basophils 0.2 % [facility] ABS Neutrophils 4.03 K/cmm [facility] ABS Lymphs 4.00 K/cmm [facility] ABS Monocytes 0.84 K/cmm [facility] ABS Eosinophils 0.21 K/cmm [facility] ABS Basophils 0.02 K/cmm [facility] Type of Diff: Automated [facility] Specimen Performing Organization Address City/[facility] Phon e Number [facility] [address] [place] [address] SERVICES [facility] [address] [place] [address] HEMAGRAM (05/06/2013 14:12 EDT) Pathologist Sig nature WBC 9.10 4.5 - 13.0 K/cmm [facility] RBC 4.65 4.00 - 6.20 M/cmm [facility] Hemoglobin 13.4 11.5 - 15.5 gm/dl [facility] HCT 37.9 35.0 - 45.0 % [facility] MCV 81 77 - 95 fl [facility] MCH 28.9 pg [facility] MCHC 35.5 gm/dl [facility] PLT 217 156 - 312 K/cmm [facility] RDW-CV 13.7 % [facility] Specimen Performing Organization Address [facility] Phon e Number [facility] [address] [place] [address] SERVICES [facility] [address] [place] [address] COMPREHENSIVE METABOLIC PANEL (CMP) (05/06/2013 14:12 EDT) Pathologist Sig nature Potassium 4.3 3.6 - 5.2 mEq/L [facility] Sodium 142 136 - 145 mEq/L [facility] Chloride 102 96 - 110 mEq/L [facility] CO2 25 24 - 32 mEq/L [facility] Total Alkaline 237 135 - 530 U/L [facility] Phosphatase Bilirubin, Total 0.6 0.0 - 1.4 mg/dl [facility] AST 30 16 - 46 U/L [facility] ALT 29 10 - 35 U/L [facility] Albumin 4.8 3.0 - 5.5 g/dl [facility] Total Protein 7.7 6.3 - 8.6 g/dl [facility] Creatinine 0.51 0.42 - 0.71 [facility] mg/dl GFR, Calculated Age <18 ml/min/1.73m2 [facility] BUN 16 7 - 18 mg/dl [facility] Calcium 9.6 8.5 - 10.5 [facility] mg/dl Calculated Calcium 9.2 8.5 - 10.5 [facility] mg/dl Glucose, Serum 88 70 - 100 mg/dl [facility] Fasting? Unknown [facility] Specimen Blood specimen (specimen) Performing Organization Address City/State/[facility] Code Phon e Number [facility] [address] [place] [address] SERVICES [facility] [address] [place] [address] documented in this encounter Visit Diagnoses Diagnosis [facility]) (HCC) - Primary Acute myeloid leukemia in remission History of chemotherapy Personal history of antineoplastic chemo therapy Learning difficulty Unspecified delay in development Compulsive behavior Obsessive-compulsive disorders Acute myeloid leukemia in remission ([facility]) (HCC) Acute myeloid leukemia in remission Obsessive behavior Obsessive-compulsive disorders documented in this encounter Care Teams Infrastructure Project Manager Relationship Specialty Start Date End Date Unknown, Provider, PCP - General 05/06/13 10/20/13 Sully Baldwin NP Nurse Practitioner 09/05/10 [address] [place] [address] documented as of this encounter
--- OUTSIDE RECORDS SUMMARY | 2022-05-10 08:29 | XMS_ITS | Encounter Summary ---
:2002 Author Organization [facility] Address [address] [place] [address] Care Team Providers Name Role Phone Sully Baldwin BOTTOM STEEP TENDER Unavailable Unknown, Provider Primary Care Provider Reason for Visit Reason Onset Date Comments Appointment Related 10/04/2013 Encounter Details Date Type Department Care Team Description 10/04/2013 Telephone [facility] Rene MD Appointment Related Hospital Pediatric [address] [place] [address] Hematology & Oncology [facility] [phone] [place] [address] [place] [address] [phone] Social History Tobacco Use Types Packs/Day Years Used Date Never Smoker Sex Assigned at Date Recorded Not on file documented as of this encounter Miscellaneous Notes Telephone Encounter - Farhana Soares - 10/04/2013 1104 EST Returned call, left message regarding setting up a follow-up appointment. elephone Encounter - Wagner Manzo - 10/04/2013 0920 EST Calling to schedule a follow up in October with Dr. Rene. documented in this encounter Plan of Treatment Upcoming Encounters Date Type Specialty Care Team Description 12/18/2022 Ancillary Procedure Cardiology 12/18/2022 Office Visit Cardiology Bg Kelsey MD 111 [facility], [facility], Level [address] [place], [place] [address] (Wo rk) documented as of this encounter Visit Diagnoses Not on filedocumented in this encounter Care Teams Flying I Instructor Relationship Specialty Start Date End Date Unknown, Provider, PCP - General 05/06/13 10/20/13 Sully Baldwin BOTTOM STEEP TENDER Nurse Practitioner 09/05/10 [address] [place] [phone] documented as of this encounter
--- OUTSIDE RECORDS SUMMARY | 2022-05-10 08:29 | XMS_ITS | Encounter Summary ---
:2002 Author Organization [facility] Address [address] [place] [address] Care Team Providers Name Role Phone Sherman King MD Primary Care Provider Sully Baldwin BIOMETRICS EXPERIMENTALIST Unavailable Reason for Visit Reason Comments Follow-up Encounter Details Date Type Department Care Team Description 03/04/2012 Nurse Only [facility] Unknown, Provider, Pediatric Cardiology - Duglas Hoskins MD [address] [place] [address] [facility] Lexy Payan RN [address] [place] [address] [address] [place], [place] [address] Social History Tobacco Use Types Packs/Day Years Used Date Never Smoker Sex Assigned at Date Recorded Not on file documented as of this encounter Procedure Notes SCALER, SCAN 2 - 03/09/2012 0617 EDTAssociated Order(s): ECG REPORT - SCANNED documented in this encounter Plan of Treatment Upcoming Encounters Date Type Specialty Care Team Description 12/18/2022 Ancillary Procedure Cardiology 12/18/2022 Office Visit Cardiology Bg eKlsey MD [address] [facility] Level 1 [place], [place] [address] (Wo rk) documented as of this encounter Procedures Procedure Name Priority Date/Time Associated Diagnosis Comme nts ECG REPORT - 03/09/2012 6:17 EDT Results for this SCANNED procedure are i n the results section. documented in this encounter Results ECG REPORT - SCANNED (03/09/2012 6:17 EDT) Specimen Narrative 07/17/2012 14:14 EDT Procedure Note SCALER, SCAN 2 - 03/09/2012 6:17 EDT documented in this encounter Visit Diagnoses Not on filedocumented in this encounter Care Teams Senior Military Analyst Relationship Specialty Start Date End Date Sherman King MD PCP - General 05/24/10 07/01/12 [place] [phone] Sully Baldwin BIOMETRICS EXPERIMENTALIST Nurse Practitioner 09/05/[address] [place] [phone] documented as of this encounter
--- OUTSIDE RECORDS SUMMARY | 2022-05-10 08:29 | XMS_ITS | Encounter Summary ---
:2002 Author Organization [facility] Address [address] [place] [address] Care Team Providers Name Role Phone Sherman King MD Primary Care Provider Sully Baldwin TANK PROCESSOR Unavailable Reason for Visit Reason Onset Date Comments Appointment Related 06/19/2011 Encounter Details Date Type Department Care Team Description [facility]/19[facility]2011 [facility] Pediatric [address] [place] [address] Hematology & Oncology [facility] [phone] [place] [address] [place] [address] [phone] Social History Tobacco Use Types Packs/Day Years Used Date Never Smoker Sex Assigned at Date Recorded Not on file documented as of this encounter Miscellaneous Notes Telephone Encounter - Steffi Winter - 06/20/2011 1340 EDT Rescheduled appt with mom. elephone Encounter - Wagner Manzo - 06/19/2011 1317 EDT Calling to speak with Steffi about an appointment documented in this encounter Plan of Treatment Upcoming Encounters Date Type Specialty Care Team Description 12/18/2022 Ancillary Procedure Cardiology 12/18/2022 Office Visit Cardiology Bg Kelsey MD [address] [facility], [facility], Level [address] [place] [address] (Wo rk) documented as of this encounter Visit Diagnoses Not on filedocumented in this encounter Care Teams Relay Shop Tester Relationship Specialty Start Date End Date Sherman King MD PCP - General 05/24/10 07/01/12 [place] [address] Sully Baldwin TANK PROCESSOR Nurse Practitioner 09/05/10 [address] [place] [address] documented as of this encounter
--- OUTSIDE RECORDS SUMMARY | 2022-05-10 08:30 | XMS_ITS | Encounter Summary ---
:2002 Author Organization [facility] Address [address] [place] [address] Care Team Providers Name Role Phone Erika Chairez MD Primary Care Provider Unavailable Encounter Details Date Type Department Care Team Description 01/25/2010 Results Only [facility] Ryan Abel, Pediatric Hematology & Juliet Velasquez MD Oncology - [facility] [address] [place], [place] [phone] Social History Tobacco Use Types Packs/Day Years Used Date Never Assessed Sex Assigned at Date Recorded Not on file documented as of this encounter Plan of Treatment Upcoming Encounters Date Type Specialty Care Team Description 12/18/2022 Ancillary Procedure Cardiology 12/18/2022 Office Visit Cardiology Bg Kelsey MD 111 [facility], Level [address] [place], [place] [phone] (Wo rk) documented as of this encounter Procedures Procedure Name Priority Date/Time Associated Diagnosis Comme nts SLIDE REQUEST Routine 01/25/2010 13:35 EDT Result s for this procedure are i n the results section . documented in this encounter Results SLIDE REQUEST (01/25/2010 13:35 EDT) Pathologist Sig nature Note A smear is filed in the [facility] Specimen Performing Organization Address City/State/ZIP Code Phon e Number [facility] [address] [place] [address] SERVICES [facility] [address] [place] [address] documented in this encounter Visit Diagnoses Not on filedocumented in this encounter Care Teams Environmental Scientist Relationship Specialty Start Date End Date Erika Chairez MD PCP - General 03/07/09 05/23/10 documented as of this encounter
--- OUTSIDE RECORDS SUMMARY | 2022-05-10 08:30 | XMS_ITS | Encounter Summary ---
:2002 Author Organization [facility] Address [address] [place] [address] Care Team Providers Name Role Phone Erika Chairez MD Primary Care Provider Unavailable Encounter Details Date Type Department Care Team Description 06/29/2009 Hospital Encounter [facility] Ryan morales, Pediatric Hematology & Juliet Velasquez MD Oncology - [facility] [address] [place], [place] [phone] Social History Tobacco Use Types Packs/Day Years Used Date Never Assessed Sex Assigned at Date Recorded Not on file documented as of this encounter Discharge Disposition Disposition Code Departure Means Destination Home or Self [facility]pc documented in this encounter Plan of Treatment Upcoming Encounters Date Type Specialty Care Team Description 12/18/2022 Ancillary Procedure Cardiology 12/18/2022 Office Visit Cardiology Bg Kelsey MD 111 [facility], [facility], [facility] 1 [place], [place] [address] (Wo rk) documented as of this encounter Visit Diagnoses Not on filedocumented in this encounter Care Teams Cornice Maker Relationship Specialty Start Date End Date Erika Chairez MD PCP - General 03/07/09 05/23/10 documented as of this encounter
--- OUTSIDE RECORDS SUMMARY | 2022-05-10 08:30 | XMS_ITS | Encounter Summary ---
:2002 Author Organization [facility] Address [address] [place] [address] Care Team Providers Name Role Phone Erika Chairez MD Primary Care Provider Unavailable Encounter Details Date Type Department Care Team Description 03/15/2010 Hospital Encounter [facility] NP [facility] Pediatric [address] [place] [address] Hematology & Oncology [facility] [phone] [place] [address] [place], [place] [id number] [phone] Social History Tobacco Use Types Packs/Day Years Used Date Never Assessed Sex Assigned at Date Recorded Not on file documented as of this encounter Discharge Disposition Disposition Code Departure Means Destination Home or Self Prison documented in this encounter Progress Notes Sully Baldwin NP - 03/15/2010 0000 EDT PROGRESS/FOLLOWUP NOTE - 03/15/2010 DIVISION OF PEDIATRIC HEMATOLOGY/ONCOLOGY REASON FOR VISIT: Follow up acute myeloid leukemia. 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 He was enrolled on [facility] [id number] therapy and randomized to the experimental gemtuzumab arm. 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 He tolerated therapy very well with the expected complications of myelosuppression. He completed therapy on 04/23/2008 and remains in remission. Since his visit here 2 months ago, Jaswinder continues in his usual good state of health. He is noted to have difficulty at school, particularly in math. His mother requested a letter for neurocognitive testing. He had a gastrointestinal viral illness with watery diarrhea that lasted for a week while hewas on his spring break. The diarrhea illness abated without intervention. Diagnosed with otitis media by PMD after last clinic visit, treated with an analgesic otic drop solution with resolution without use of oral antibiotics. His mother noted that Jaswinder has frequent, about every 6 to 8 weeks, upper respiratory infections with cough and rhinorrhea with fevers. He's playing baseball this spring. He remains very active with a good energy level. His mother is present at today's visit and contributes to the history. PAST MEDICAL HISTORY: 1. 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 a. Treated per [id number] protocol. Received intrathecal cytarabine X 4, IV cytarabine 456,000mg/m2, daunorubicin 300mg/m2, mitoxantrone 48mg/m2, etoposide 1,750mg/m2, gemtuzumab 6mg/m2, L-asparaginase 1,200mg/m2. b. Total anthracycline exposure 492mg/m2 (daunorubicin and mitoxantrone) 2. History of Broviac catheter placement/removal. SOCIAL HISTORY: Jaswinder lives in [place], [place] with his parents. He has an older brother. He is a first grader. MEDICATIONS: Vitamin 1 tablet p.o. daily. ALLERGIES: ECONAZOLE, rash, AMBISOME, fevers and rigors. REVIEW OF SYSTEMS: No weight loss, no night sweats. Good activity level, good appetite. Denies blurred vision, double vision or halos. No seizure activity. Denies lightheadedness or palpitations. No history of shortness of breath. Reports frequent cough and rhinorrhea. Seems to have cold type illnesses every 6 to 8 weeks without fevers. Denies frequent sore throats. Otitis media after last clinic visit treated with analgesic drops, resolved without use of oral antibiotics. No history of nausea, vomiting, diarrhea or constipation. Denies bone or muscle pain. Denies skin rashes. Denies polyuria, polydipsia, polyphagia. No lymphadenopathy noted. Complete review of greater than 11 systems reviewed andotherwise negative other than noted above. OBJECTIVE: Blood pressure 97/63, pulse 91, temperature 36.4. Weight 34.7 kilos, height 138 cm. Jaswinder is well-developed, well-nourished, in no acute distress. Sclerae are anicteric. Pupils equal, round, reactive to light and accommodation bilaterally. No cataracts visualized. Tympanic membranes translucent bilaterally. Oral mucosa pink and moist, good dentition, no oral ulcerations noted. No thyromegaly noted. Well-healed incision from previous central line on anterior chest intact. Breath sounds clear to auscultation bilaterally, no adventitious sounds noted. Regular S1, S2 without murmurs, rubs or gallops. No peripheral edema. Abdomen soft, nontender, no hepatosplenomegaly noted. Circumcised male, testicular size 2 mL bilaterally, smooth and soft consistency. Red stage 1. No lymphadenopathyappreciated in neck, axillary, inguinal, supraclavicular areas. Skin without lesions. Dry skin on hands and forearms bilaterally, otherwise normal skin turgor without rashes. Cranial nerves II-XII grossly intact. Deep tendon reflexes +2 bilaterally lower extremities. Cerebellar: Good [id number]. Alert and oriented x3. Recent and remote memory intact. Gait coordinated and smooth. Strength 5/5 in all extremities. No muscle atrophy or weakness noted. Able to toe walk and heel walk without difficulty. Able to obtain a low squat and rise without bracing. LABORATORY DATA: CBC with differential, WBC 9.25, HGB 13.2, HCG 37.3, platelets 178,000, MCV 86, MCH30.4, MCHC 35.4, RDW 13.4, neutrophils 46.6%, lymphocytes 42.7%, monocytes 8.2%, eosinophils 1.5%, basophils 1%, absolute neutrophils 4310. 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 Currently 1 year and 5 months off therapy in continued remission. PLAN: 1. Acute myeloid leukemia. Jaswinder is now 1 year and 5 months off therapy for AML in continued remission. CBC obtained today within normal limits. We will continue to see Jaswinder every 2 months and obtain CBC with differential at each visit. 2. Late effects. Discussed potential late effects of therapy which include, but are not limited to the following: a. Cardiomyopathy. At risk for cardiomyopathy related to anthracycline exposure. Received 492 mg/m2of anthracycline. Echocardiogram obtained today. Results showed no change since previous study. Continue yearly echocardiogram. b. Neurocognitive deficits. At risk for neurocognitive deficits related to intrathecal and multiagent high dose chemotherapy. Jaswinder has experienced difficulty at school specifically in math. His mother reports that he tested in the 15th percentile in math and that he hasn't progressed as expected over the past year. In fact, he remains at the same level that he was at one year ago. A letter outlining the potential for neurocognitive effects in children treated for childhood leukemia/cancer along with recommendation for neurocognitive testing at either the [facility] or the child development clinic was provided to his parent and school at today's visit. c. Secondary malignancy. At risk for secondary malignancy specifically AML related to anthracyclineand epipodophyllotoxin exposure. CBC with differential within normal limits at today's visit. ObtainCBC with differential at each visit. 3. Health maintenance. Weight 34.7kg places him in the 95th percentile for weight. Height of 138cm places him in the 96th percentile for height. Monitor height and weight. At risk for childhood obesity. I spent a total of 30 minutes with the family with greater than 50% spent face to face in counselingregarding potential late effects of therapy and neurocognitive effects/treatment. DISPOSITION: Return to clinic in 2 months for history, physical examination, CBC with differential. Electronically Signed by ANA Eastman 03/19/2010 15:58 ANA Eastman - ANA Eastman P - LBR Job ID: SM Doc ID: [id number] Ext Doc ID: [id number] cc: Erika Chairez MD documented in this encounter Plan of Treatment Upcoming Encounters Date Type Specialty Care Team Description 12/18/2022 Ancillary Procedure Cardiology 12/18/2022 Office Visit Cardiology Bg Kelsey MD [address] [place] [address], [facility] 1 [place] [address] (Wo rk) documented as of this encounter Procedures Procedure Name Priority Date/Time Associated Comments Diagnosis SLIDE REQUEST Routine 03/15/2010 11:11 Results fo r this EDT procedure are i n the results section. COMPLETE BLOOD COUNT Routine 03/15/2010 11:11 Res ults for this AND DIFFERENTIAL EDT procedure a re in the results section. documented in this encounter Results SLIDE REQUEST (03/15/2010 11:11 EDT) Pathologist Sig nature Note A smear is filed in the [facility] lab Specimen Performing Organization Address City/[facility]/ZIP Code Phon e Number [facility] [address] [place] [address] SERVICES [facility] [address] [place] [address] HEMAGRAM AND DIFFERENTIAL (03/15/2010 11:11 EDT) Pathologist Sig nature WBC 9.25 4.5 - 13.5 K/cmm [facility] RBC 4.34 4.00 - 6.20 M/cmm [facility] Hemoglobin 13.2 11.5 - 15.5 gm/dl [facility] HCT 37.3 35.0 - 45.0 % [facility] MCV 86 77 - 95 fl [facility] MCH 30.4 pg [facility] MCHC 35.4 gm/dl [facility] PLT 178 156 - 312 K/cmm [facility] RDW-CV 13.4 % [facility] Neutrophils 46.6 % [facility] Lymphocytes 42.7 % [facility] Monocytes 8.2 % [facility] Eosinophils 1.5 % [facility] Basophils 1.0 % [facility] ABS Neutrophils 4.31 K/cmm [facility] ABS Lymphs 3.95 K/cmm [facility] ABS Monocytes 0.76 K/cmm [facility] ABS Eosinophils 0.14 K/cmm [facility] ABS Basophils 0.10 K/cmm [facility] Type of Diff: Automated [facility] Specimen Blood specimen (specimen) Performing Organization Address City/[facility]/ZIP Code Phon e Number [facility] [address] [place] [address] SERVICES [facility] [address] [place] [address] documented in this encounter Visit Diagnoses Not on filedocumented in this encounter Care Teams Head Mva Reactor Operator Relationship Specialty Start Date End Date Erika Chairez MD PCP - General 03/07/09 05/23/10 documented as of this encounter
--- OUTSIDE RECORDS SUMMARY | 2022-05-10 08:30 | XMS_ITS | Encounter Summary ---
:2000 Author Organization [facility] Address [address] [place] [address] Care Team Providers Name Role Phone Erika Chairez MD Primary Care Provider Unavailable Encounter Details Date Type Department Care Team Description 04/27/2009 Hospital En[facility] On[facility] [address] [place], [place] 111 [facility] [address] [place], [place] [id number] [phone] Social History Tobacco Use Types Packs/Day Years Used Date Never Assessed Sex Assigned at Date Recorded Not on file documented as of this encounter Discharge Disposition Disposition Code Departure Means Destination Home or Self Correction documented in this encounter Progress Notes Brandi Kam NP - 04/27/2009 0000 EDT PROGRESS/FOLLOWUP NOTE - 04/27/2009 REASON FOR VISIT Six months off therapy, AML follow-up. 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 Hewas enrolled on COG protocol [id number] and randomized to the experimental gemtuzimab arm. 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 He overall tolerated therapy as expected complicated by significant myelosuppression. He completed therapy on 04/23/2008 and has remained in remission since. He is here today for his six-month follow-up and isaccompanied by his parents who contributed the history. Since his last visit with us a month ago, Geronimo and his family report his overall health has been great. He has had no recent illnesses, injuries or hospitalizations. He has recently completed the first grade; however, will be repeating this due to so much missed schooling secondary to his chemotherapy treatments. Since his last visit, he has hadno new concerns or symptoms. He is here for his regularly scheduled follow-up. REVIEW OF SYSTEMS Geronimo and his parents report that he has had an excellent energy and appetite. He has had no recent fevers, sleep disturbances or pain. He has not complained of headaches, vision changes or oral lesions. He has been very active, not complaining of shortness of breath, chest pain or chest palpitations. He does complain of intermittent abdominal pain in the epigastric region a few times a week. It comesand goes, and he does not take anything for this. There is no associated nausea or vomiting. No diarrhea. He does continue to stool hold for approximately three days and then has a normal bowel movement. He has had no complaints of pain or weakness or paresthesias. He has no reported rashes, ecchymoses, petechiae, easy bruising or bleeding. No lumps or bumps reported. FAMILY/SOCIAL HISTORY There have been no significant changes in his family history since his last visit 03/27/2009. Jaswinder recently completed the first grade and will be repeating this grade due to missing so much of the school year. He is active playing multiple sports this spring and summer. CURRENT MEDICATIONS Bactrim 10 mL p.o. b.i.d. every Friday, Friday, Friday. ALLERGIES 1. Agitation with Benadryl. 2. Rash with voriconazole. 3. Fevers and rigors with AmBisome. PHYSICAL EXAM Geronimo is awake and alert. No acute distress. Play performance score is 100. His vital signs reveal his blood pressure of 112/60. Pulse is 62. Respiratory rate 20. Temperature is 36.5. Weight today is 30.9 kilos. Height is 130.8 cm. His ENT exam reveals anicteric sclerae. Conjunctivae are clear. His pupils are equal, round and reactive to light bilaterally. His funduscopic exam is difficult to obtain due to patient compliance. However, there are not cataracts noted. His mucous membranes are moist. There are no lesions or ulcers to his lips or buccal mucosa. His lung exam shows respirations even and unlabored. Lung sounds are clear with no adventitious sounds noted. His heart rate shows a regular S2,S2 without murmur, rub or gallop. His peripheral perfusion is normal throughout. His abdomen is softand nontender. No hepatosplenomegaly noted. His male exam: Circumcised male, bilateral descended testicles. Testicular size approximately 2 mL. Smooth without masses. There is no lymphadenopathy palpated in his neck and supraclavicular regions. His skin exam shows no rashes, lesions, bruising or pet echiae. His neurologic exam: His cranial nerves II-XII are intact. Superficial touch and sensation is intact. His gait is coordinated and smooth. There is full strength in all extremities. DATA OBTAINED CBC with differential today shows white blood cell count of 7270, hemoglobin 13.2, hematocrit 36.7, platelets 174,000. He has 38.2% neutrophils, 49.5% lymphocytes, 9.6% monocytes, 2.2% eosinophils, 0.5% basophils, 0 blasts. Absolute neutrophil count 2780. IMPRESSION Jaswinder is a nearly 9-year-old, young boy now six months off therapy for low- risk acute myelocytic leukemia, now in continued remission. 1. Acute myelocytic leukemia, six months off therapy. CBC with diff was drawn today and shows no evidence of disease recurrence. We will continue to monitor these on a monthly basis. 2. Potential long-term toxicities secondary to chemotherapy exposure. Jaswinder is at risk for late effects causing toxicity due to his prior chemotherapy. These can include, but are not limited to: 1) Cardiomyopathies and arrhythmias secondary to anthracycline exposure. Jaswinder received a cumulative anthracycline dose of 468 mg/m2. This, in a patient of his age, is in the higher levels of dosing. His last echocardiogram was performed a month ago and showed normal anatomy and left ventricular fun ction. We will continue to monitor these on a yearly basis. 2) Liver and kidney health. Liver and kidneys can be affected long-term. His last CMP showed normalvalues. We will recheck his CMP at his next visit. 3) Cognitive effects secondary to intrathecal medications. Jaswinder is at risk for potential neurocognitive effects. His parents do express that he does have difficulty with attention as well as hyperactivity. Typically, neurocognitive late effects can manifest themselves with memory difficulties, difficulties with processing information as well as attention difficulties. Hyperactivity is not typically seen resulting from chemotherapy. His parents express that the teachers are monitoring him closely, and as he repeats the first grade this fall, will continue to assess whether or not neurocognitive testing could be beneficial. 3. Intermittent epigastric pain. Jaswinder may be having some mild gastritis. I recommended that he use Tums p.r.n. and to continue to monitor his symptoms. 4. Health maintenance. The immune system following therapy for AML is considered normalized between 6 and 12 months off therapy. We are in the process of discussing whether or not reboostering patientsfollowing therapy should be required. Our team will let the family as well as primary care offices know if we will be implementing this, and I discussed this with his mother today. 5. Acquired immunodeficiency. Now that Jaswinder is six months off therapy, he may stop his Bactrim for PCP prophylaxis as it is assumed most, if not all, of his immune function has returned. We will see Jaswinder back in one month's time for repeat history, physical and laboratory evaluation. Electronically Signed by Brandi Kam NP 2009 08:53 Brandi Kam NP Division of Pediatric Hematology / Oncology - Brandi Kam NP P - [facility] Job ID: [id number] Doc ID: [id number] cc: Erika Chairez MD documented in this encounter Plan of Treatment Upcoming Encounters Date Type Specialty Care Team Description 12/18/2022 Ancillary Procedure Cardiology 12/18/2022 Office Visit Cardiology Bg Kelsey MD [address] [place] [address], [address] [place], [place] [address] (Wo rk) documented as of this encounter Visit Diagnoses Not on filedocumented in this encounter Care Teams Crm Analyst Relationship Specialty Start Date End Date Erika Chairez MD PCP - General 03/07/09 05/23/10 documented as of this encounter
--- OUTSIDE RECORDS SUMMARY | 2022-05-10 08:30 | XMS_ITS | Encounter Summary ---
:2000 Author Organization [facility] Address [address] [place] [address] Care Team Providers Name Role Phone Unavailable Primary Care Provider Unavailable Encounter Details Date Type Department Care Team Description 11/21/2008 Hospital [facility] 111 [facility] [address] [place], [place] [id number] [place] [phone] Social History Tobacco Use Types Packs/Day Years Used Date Never Assessed Sex Assigned at Date Recorded Not on file documented as of this encounter Discharge Disposition Disposition Code Departure Means Destination Auto Discharge documented in this encounter Plan of Treatment Upcoming Encounters Date Type Specialty Care Team Description 12/18/2022 Ancillary Procedure Cardiology 12/18/2022 Office Visit Cardiology Bg Kelsey MD 111 [facility], [address] [place], [place] [address] (Wo rk) documented as of this encounter Procedures Procedure Name Priority Date/Time Associated Comments Diagnosis FLOW CYTOMETRY Routine 11/24/2008 14:30 Results f or this EST procedure are i n the results section. CYTOGENETICS Routine 11/24/2008 0:00 Results for this EST procedure are i n the results section. BONE MARROW/HEMPATH Routine 11/24/2008 0:00 Resul ts for this CONSULT EST procedure are i n the results section. documented in this encounter Results FLOW CYTOMETRY (11/24/2008 14:30 EST) Pathology FLOW CYTOMETRY REPORT ? [facility] Report: ? LAB Reports generated via electr onic interface contain original data; ? however they are lacking the format of the original report. ? Caution should be taken when reading/interpreting unformatted reports. ? Name: ? DIANA ROSS ? Accession #: ? [id number] ? : ? 2000 (Age: 8) ??M ?Collect Date: ? 11/24/2008 14:30 ? Location: ? [facility] ? Receive Date: ? 11/24/2008 15:10 ? Provider: ?JULIET SA DAQUANNIER-MARIBELER MD ? Copy to: ?ELLE C CHIQUIS NS MD ? KARY E LESLEY CLOTH FINISHING RANGE OPERATOR CHIEF ? Specimen/ Type: ?B one Marrow - ??Flow Cytometry ? Clinical History: ? 205.00 ? Immunophenotype Analysis ? Date Tested: ??11/25/08 ? Description: ? The specimen consists of bon e marrow that is by Ficoll-Hypaque density gradient centrifugation. ??G ating is performed using CD45 fluorescence and side ?? scatter. ??Cellular viabilit y (assessed by propidium iodide exclusion) is ? excellent (99%). ??Expressio n of the following markers is tested: ??CD2, CD3, CD4, CD5, CD7, CD8, CD10, CD11b, CD11c, CD13, CD14, CD16, CD19, CD20, CD22, CD23, ? CD33, CD34, CD38, CD45, CD56 , CD57, CD117, FMC-7, HLA-DR, kappa light chain, ? lambda light chain. ? A majority of the lymphoid c ells are T-lymphocytes (CD2+CD3+CD5+CD7+) with CD4+ and CD8+ subsets represented . ??The remaining lymphocytes are NK-cells ? (CD2+CD3-CD16+CD56+). ??B-ce lls are too few in number to permit definitive ? assessment with respect to l ight chain expression. ??The remainder of the CD45+ ?? events is predominantly of m yeloid lineage. ??There is no increase in blasts or ?? plasma cells. ? The results of flow cytometr y show no immunophenotypic evidence of involvement ?? by a clonal myeloproliferati ve disorder. ??Correlation of these findings with ? morphologic and clinical kevan a is essential; please refer to bone marrow report ?? ([id number]) for morphologic de tails. ? Final Immunophenotypic Inter pretation: ? Bone marrow, flow cyt ometric analysis: ? No immunophenotypic e vidence of a clonal cell population. ??See description. ? This test was developed and its performance characteristics determined by the ?? Department of Pathology and Laboratory Medicine, [facility], ? [facility]. ??It has not been cleared or approved by the U.S. Food and Drug ?? Administration. ? Document reviewed and electr onically signed by: ? Campbell Brock MD ? Report Date: ??11/25/2008 15 :30 ? By the signature above, the attending physician certifies that he/she has ? personally conducted an eval uation of the described specimen and rendered or ? confirmed the above diagnosi s. ? End of Report ? Specimen Performing Organization Address City/State/ZIP Code Phon e Number [facility] [address] [place] [address] SERVICES [facility] [address] [place] [address] CYTOGENETICS (11/24/2008 0:00 EST) Pathologist [facility] Pathology Report: CYTOGENETICS REPORT ? D[facility]RIAN SPANGLER EN ? LAB Reports generated via electr onic interface contain original data; ? however they are lacking the format of the original report. ? Caution should be taken when reading/interpreting unformatted reports. ? Name: ? DIANA ROSS ? Accession #: ? [id number] ? : ? 2000 (Age: 8) ??M ?Collect Date: ? 11/24/2008 ? Location: ? [facility] ? Receive Date: ? 11/24/2008 ? Provider: ? JULIET PRINCE MD ? Copy to: ?ELLE C CHIQUIS NS MD ? KARY SUTTON CLOTH FINISHING RANGE OPERATOR CHIEF ? CHERIE DÍAZ MD ? Campbell J. Vinod, MD ? CLINICAL HISTORY: ? 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 ? SPECIMEN: ? Bone Marrow ? TEST PERFORMED: ? G-banded Karyotype ? REPORT: ? No. Cells Counted: ?? 20 ? No. Cells Analyzed: ??20 ? No. Cells Karyotyped: ??14 ? Band Resolution: ??400-450 ? KARYOTYPE: ? 46,XY[20] ? INTERPRETATION: ? Normal male karyotype , consistent with complete cytogenetic remission. ? No evidence of the t(8;21) o r del(9q) seen at diagnosis. ? Document reviewed and electr onically signed by: ? CHERIE DÍAZ MD ? Report Date: ??01/20/ 2009 17:03 ? End of Report ? Specimen Performing Organization Address City/State/ZIP Code Phon e Number [facility] [address] [place] [phone] SERVICES [facility] [address] [place] [address] BONE MARROW (11/24/2008 0:00 EST) Pathologist [facility] Pathology Report: BONE MARROW REPORT ? [facility]AN RAMOS ? LAB Reports generated via electr InterEx interface contain original data; ? however they are lacking the format of the original report. ? Caution should be taken when reading/interpreting unformatted reports. ? Name: ? DIANA ROSS ? Accession #: ? [id number] ? : ? 2000 (Age: 8) ??M ?Collect Date: ? 11/24/2008 ? Location: ? [facility] ? Receive Date: ? 11/24/2008 ? Provider: JULIET VOGT MD ? Copy to: ?ELIDA M PAT NO MD ? KARY SUTTON CLOTH FINISHING RANGE OPERATOR CHIEF ? DIAGNOSIS: ? Peripheral blood: ? - Leukopenia (1,760/cmm). ? - Anemia, moderate, normocyt ic (Hct 21.9%) ? - Thrombocytopenia (58,000/c mm). ? Bone marrow: ? - Cellular bone marrow with maturing trilineage hematopoiesis. ? - Treated acute myelo id leukemia (2% blasts). ??See comment. ? DIAGNOSTIC COMMENT: ? The bone marrow is ce llular and shows maturing trilineage hematopoiesis. ?? There is no evidence of resi dual leukemia. ??Flow cytometry ([id number]) is in ? agreement with this diagnosi s. ??Cytogenetic analysis ([id number]) is pending. ? (Dr. Glendy Brock)/concepción ? TISSUE SUBMITTED: ? Bone marrow (right il iac crest): Aspirate, clot section and smears. ? CLINICAL DATA: ? 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 ? PERIPHERAL BLOOD: ? (11/24/08): Hgb: not available, Hct 21.9%, RBC 2.69 M/cmm, MCV 81 fl, MCH: not calculated, MCHC: not ca lculated, RDW 12.4%. ??WBC 1.76 K/cmm, with 23.0% ? neutrophils, 37.0% lymphocyt es, 1.0% atypical lymphocytes, 36.0% monocytes. ? Platelet count 58,000/cmm. ? ?Review of a peripheral smear confirms these findings and shows no abnormal cells. ? BONE MARROW: ? Biopsy (decalcified): ??None submitted. ? Clot section: ??Insufficient for processing. ? Smears: ??Particulate and ce llular. ? Imprints: ??None submitted. ? Granulopoiesis: ?Maturing with mild cytologic change comprised of ?? some nuclear cytoplasmic asy nchrony and some abnormal granulation in mid-stages. Erythropoiesis: ?Maturing with moderate cytologic changes comprised of ?? some nuclear to cytoplasmic asynchrony and some nuclear lobulation including a ?? few binucleate forms. ? Megakaryocytes: ? Modera te; spectrum of typical forms. ? Other Cells: ? Moderate lymphocytes, rare plasma cells, moderate ? monocytes. ? Hemosiderin (smears): ??Hist iocytes 2+ (0-4+) (Prussian Blue stain for Iron); 40% sideroblasts, 60% normoblast s. ? 500 cell differential count: ? Late g ranulocytes ?25% ?Early granulo cytes ?11% ?Erythroid ser ies ? 45% ?Lymphocytes ? 10% ?Monocytes/his tiocytes ?7% ?BLASTS ? 2% ?Total ?? 100% ? SPECIAL STUDIES: ? Cytogenetics ([id number] ): Pending. ? Flow cytometry ([id number]): Pen ding. ? Document reviewed and electr onically signed by: ? Campbell Brock, MD ? Report Date: ??01/16/ 2009 15:30 ? By the signature above, the attending physician certifies that he/she has ? personally conducted a gross and/or microscopic examination of the described ? specimens and rendered or co nfirmed the above diagnosis. ? End of Report ? Specimen Performing Organization Address City/State/ZIP Code Phon e Number [facility] [address] [place] [address] SERVICES [facility] [address] [place] [address] documented in this encounter Visit Diagnoses Not on filedocumented in this encounter
--- OUTSIDE RECORDS SUMMARY | 2022-05-10 08:30 | XMS_ITS | Encounter Summary ---
:2000 Author Organization [facility] Address [address] [place] [address] Care Team Providers Name Role Phone Erika Chairez MD Primary Care Provider Unavailable Encounter Details Date Type Department Care Team Description 08/29/2009 Hospital Encounter [facility] Juliet Velasquez MD 111 [facility] [address] [place], [place] [phone] [place] [phone] Social History Tobacco Use Types Packs/Day Years Used Date Never Assessed Sex Assigned at Date Recorded Not on file documented as of this encounter Discharge Disposition Disposition Code Departure Means Destination Home or Self Nursing Home documented in this encounter Plan of Treatment Upcoming Encounters Date Type Specialty Care Team Description 12/18/2022 Ancillary Procedure Cardiology 12/18/2022 Office Visit Cardiology Bg Kelsey MD 111 [facility], [facility], [address] [place], [place] [phone] (Wo rk) documented as of this encounter Visit Diagnoses Not on filedocumented in this encounter Care Teams Dining Room Manager Relationship Specialty Start Date End Date Erika Chairez MD PCP - General 03/07/09 05/23/10 documented as of this encounter
--- OUTSIDE RECORDS SUMMARY | 2022-05-10 08:30 | XMS_ITS | Encounter Summary ---
:2000 Author Organization [facility] Address [address] [place] [address] Care Team Providers Name Role Phone Erika Chairez MD Primary Care Provider Unavailable Encounter Details Date Type Department Care Team Description 03/09/2009 Hospital Encounter [facility], Prov MD dayna [facility] Pediatric Juliet James MD [address] [place] [phone] Hematology & Oncology Provider, Pediatric Oncology, [address] [phone] Social History Tobacco Use Types Packs/Day Years Used Date Never Assessed Sex Assigned at Date Recorded Not on file documented as of this encounter Discharge Disposition Disposition Code Departure Means Destination Home or Self Mcfp documented in this encounter Plan of Treatment Upcoming Encounters Date Type Specialty Care Team Description 12/18/2022 Ancillary Procedure Cardiology 12/18/2022 Office Visit Cardiology Bg Kelsey MD 111 [facility], [address] [place], [place] [phone] (Wo rk) documented as of this encounter Visit Diagnoses Not on filedocumented in this encounter Care Teams Bariatric Nurse Relationship Specialty Start Date End Date Erika Chairez MD PCP - General 03/07/09 05/23/10 documented as of this encounter
--- OUTSIDE RECORDS SUMMARY | 2022-05-10 08:30 | XMS_ITS | Encounter Summary ---
:2000 Author Organization [facility] Address [address] [place] [address] Care Team Providers Name Role Phone Erika Chairez MD Primary Care Provider Unavailable Encounter Details Date Type Department Care Team Description 09/28/2009 Hospital Encounter [facility] Ryan morales, Pediatric Hematology & Juliet Velasquez MD Oncology - [facility] [address] [place], [place] [phone] Social History Tobacco Use Types Packs/Day Years Used Date Never Assessed Sex Assigned at Date Recorded Not on file documented as of this encounter Discharge Disposition Disposition Code Departure Means Destination Home or Self Group Home documented in this encounter Plan of Treatment Upcoming Encounters Date Type Specialty Care Team Description 12/18/2022 Ancillary Procedure Cardiology 12/18/2022 Office Visit Cardiology Bg Kelsey MD 111 [facility], [facility], Level [address] [place], [place] [phone] (Wo rk) documented as of this encounter Visit Diagnoses Not on filedocumented in this encounter Care Teams Photograph Finisher Relationship Specialty Start Date End Date Erika Chairez MD PCP - General 03/07/09 05/23/10 documented as of this encounter
--- OUTSIDE RECORDS SUMMARY | 2022-05-10 08:30 | XMS_ITS | Encounter Summary ---
:2000 Author Organization [facility] Address [address] [place] [address] Care Team Providers Name Role Phone Erika Chairez MD Primary Care Provider Unavailable Encounter Details Date Type Department Care Team Description 04/06/2009 Hospital Encounter [facility] Juliet Velasquez MD [id number] [place] [phone] Social History Tobacco Use Types Packs/Day Years Used Date Never Assessed Sex Assigned at Date Recorded Not on file documented as of this encounter Discharge Disposition Disposition Code Departure Means Destination Home or Self Jail documented in this encounter Plan of Treatment Upcoming Encounters Date Type Specialty Care Team Description 12/18/2022 Ancillary Procedure Cardiology 12/18/2022 Office Visit Cardiology Bg Kelsey MD 111 [facility], Level 1 [place], [place] [address] (Wo rk) documented as of this encounter Procedures Procedure Name Priority Date/Time Associated Comments Diagnosis SLIDE REQUEST Routine 04/06/2009 12:27 Results fo r this EDT procedure are i n the results section. COMPLETE BLOOD COUNT Routine 04/06/2009 12:27 Res ults for this AND DIFFERENTIAL EDT procedure a re in the results section. documented in this encounter Results NOTE: LABORATORY USE ONLY (04/06/2009 12:27 EDT) Pathologist Sig nature Note A smear is filed in the [facility] Specimen Performing Organization Address City/State/ZIP Code Phon e Number [facility] [address] [place] [address] SERVICES [facility] [address] [place] [address] HEMAGRAM AND DIFFERENTIAL (04/06/2009 12:27 EDT) Pathologist Sig nature WBC 6.31 4.5 - 13.5 K/cmm [facility] RBC 4.42 4.00 - 6.20 M/cmm [facility] Hemoglobin 13.2 11.5 - 15.5 gm/dl [facility] HCT 37.3 35.0 - 45.0 % [facility] MCV 85 77 - 95 fl [facility] MCH 29.8 pg [facility] MCHC 35.2 gm/dl [facility] PLT 173 156 - 312 K/cmm [facility] RDW-CV 14.3 % [facility] Neutrophils 46.2 % [facility] Lymphocytes 43.5 % [facility] Monocytes 7.3 % [facility] Eosinophils 2.0 % [facility] Basophils 1.0 % [facility] ABS Neutrophils 2.92 K/cmm [facility] ABS Lymphs 2.74 K/cmm [facility] ABS Monocytes 0.46 K/cmm [facility] ABS Eosinophils 0.13 K/cmm [facility] ABS Basophils 0.06 K/cmm [facility] Type of Diff: Automated [facility] Specimen Blood specimen (specimen) Performing Organization Address City/State/ZIP Code Phon e Number [facility] [address] [place] [address] SERVICES [facility] [address] [place] [address] documented in this encounter Visit Diagnoses Not on filedocumented in this encounter Care Teams Client Solutions Specialist Relationship Specialty Start Date End Date Erika Chairez MD PCP - General 03/07/09 05/23/10 documented as of this encounter
--- OUTSIDE RECORDS SUMMARY | 2022-05-10 08:30 | XMS_ITS | Encounter Summary ---
:[address] [facility] Address [address] [place] [address] Care Team Providers Name Role Phone Erika Chairez MD Primary Care Provider Unavailable Encounter Details Date Type Department Care Team Description 03/15/2010 Results Only [facility] Ryan Abel, Pediatric Hematology & Juliet Velasquez MD Oncology - [facility] [address] [place] [phone] Social History Tobacco Use Types Packs/Day Years Used Date Never Assessed Sex Assigned at Date Recorded Not on file documented as of this encounter Plan of Treatment Upcoming Encounters Date Type Specialty Care Team Description 12/18/2022 Ancillary Procedure Cardiology 12/18/2022 Office Visit Cardiology Bg Kelsey MD 111 [facility], Level 1 [place], [place] [address] (Wo rk) documented as of this encounter Procedures Procedure Name Priority Date/Time Associated Diagnosis Comme nts ECHOCARDIOGRAM 03/15/2010 10:00 EDT Resul ts for this procedure are i n the results section . documented in this encounter Results ECHOCARDIOGRAM (03/15/2010 10:00 EDT) Specimen Narrative CARDIOLOGY - 03/15/2010 12:21 EDT Patient Name: DIANA ROSS Chart Number: [id number] Site Location: Date of Appt: , March 15, 2010, 10 :00 AM Pediatric Echocardiogram Report Demographics and Visit Data: : 2000. ??Age: 9y/10m/11d. ??BSA (m 2): 1.15. ??Height (cm): 138. ?? Weight (kg): 34.7. ??BMI (kg/m 2): 18.22 . ??Height Centile: 98.65. ?? Weight Centile: 98.49. ??Person tom thompson test: JULIET GIBSON MD. ?? Pad Cutter: Lexy Payan. ??Reason for test: COLOR PULSE [...] with change in body surface a daisy. Findings: ?? Veins and Atria: ?? >> [...] ?Z-Score ?Min ?Max ?? Systolic BP ? 9 7 ? mmHg ? -0.44 ?80.42 ??123.25 ?? Diastolic BP ?6 3 ? mmHg ? 1.18 ? 33.59 ??70.29 ?? Pulse Pressure ?34 ? mmHg ? Mean BP ? 74.3 ? mmHg ? -0.06 ?55.84 ??93.84 ? 2D: ?? Name ?Value ?Units ?? LV Diastolic Volume Index ? 84.51 ?ml/m 2 ? (Bullet) ?? M-Mode: ?? Name ?Value ?Units ?Z-Score ?Min ?Max ?? LV Diastolic Septal ? 0.80 ? cm ? 0.31 ? 0.54 ?? 0.99 ?? Thickness LV Diastolic Dimension ?4.12 ? cm ? -0.22 ?3.6 ?4.77 ?? LV Diastolic Wall ? 0.80 ? cm ? 0.83 ? 0.53 ?? 0.91 ?? Thickness LV Systolic Dimension ? 2.77 ? cm ? 0.32 ? 2.16 ?? 3.21 ?? LV Fractional Shortening ?32.77 ?% ?-0.95 ?29.9 ?? 42.64 ?? M-Mode LV Mass / Height 2 ? 51.52 ?g/m 2 ? Relative Wall Thickness ? 0.39 ? LV Systolic Function: ?? Name ?Value ?Units ?Z-Score ?Min ?Max ?? LV Diastolic Volume ? 97.19 ?ml ? 1.17 ? 54.91 ??107.96 ?? (Bullet) LV Systolic Volume ?42.7 7 ?ml ? 1.88 ? 18.43 ??43.59 ?? (Bullet) LV Ejection Fraction ?0.56 ?-1.39 ?0.53 ?? 0.73 ?? (Bullet) 2D LV Mass ? 85.00 ?gm ? 1.17 ? 49.15 ??96.62 ?? 2D LV Volume Index ?84.5 1 ? 2D LV Mass Index ?73. 91 ?g/m 2 ? Endocardial FS ?32 .77 ?% ?-0.95 ?29.9 ?? 42.64 ?? FS Vs Stress ?3 2.77 ?% ? Cardiac Geometry: ?? Name ?Value ?Units ?Z-Score ?Min ?Max ?? M-Mode LV Mass ?98 .12 ?gm ? 0.62 ? 59.78 ??126.95 ?? M-Mode LV Mass Index ?85.32 ?g/m 2 ? LV Diastolic Long [place] ?7.75 ? cm ? Epicardial Diameter LV Diastolic Epicardial ? 28.21 ?cm 2 ? Cross-Sectional Area LV Systolic [place] ? 6.01 ? cm ? Diameter LV Systolic ? 8 .54 ? cm 2 ? Cross-sectional Area LV Diastolic [place] ?7.09 ? cm ? 1.33 ? 5.4 ?7.42 ?? Diameter LV Diastolic ?1 6.45 ?cm 2 ? Cross-sectional Area LV Midwall Diastolic ?4.92 ? cm ? 0.04 ? 4.31 ?? 5.51 ?? Dimension 2D Left Atrial Diameter ? 2.15 ? cm ? M-Mode LV Mass / Height ? 71.1 ? g/m ? M-Mode LV Mass / ?41. 12 ?g/m ? 19.4 ?? 38.6 ?? Height 2.7 ?? Aorta: ?? Name ?Value ?Units ?Z-Score ?Min ?Max ?? Ao Root Diameter ?1.9 0 ? cm ? -1.35 ?1.76 ?? 2.68 ? Analysis M-Mode Wall Stress: ?? Name ?Value ?Units ?? LV Maximum Dimension ?3.80 ? cm ? Datto's Name: MARY KAY FUENTES MD Date/time of reading: Mar 15 2010 - 12:21:20 PM Report created at 12:22:02 PM on March 15, 2010 Report Number: Note:Study interpreted at [facility] unless otherwise noted Procedure Note 03/15/2010 Patient Name: DIANA ROSS Chart Number: [id number] Site Location: Date of Appt: March, 10 :00 AM Pediatric Echocardiogram Report Demographics and Visit Data: : 2000. Age: 9y/10m/11d. BSA (m 2): 1.15. Height (cm): 138. Weight (kg): 34.7. BMI (kg/m 2): 18.22. Height Centile: 98.65. Weight Centile: 98.49. Person requesting test: JULIET GIBSON MD. Pad Cutter: Lexy Payan. Reason fo r test: COLOR PULSE DOPPLER. Referral diagnosis: leukemia on therapy. Procedure Description: ECHOCARDIOGRAM. Summary: Status post adriamycin therapy. Normal left ventricular size, wall thick ness and systolic function. No significant mitral regurgitation or a ortic regurgitation. No intracardiac masses seen. Compared with last study, interval frias e in left ventricular size consistent with change in body surface a daisy. Findings: Veins and Atria: >> Normal Left [...] Value Units Z-Score Min Max Systolic BP 97 mmHg -0.44 80.42 123.25 Diastolic BP 63 mmHg 1.18 33.59 70.29 Pulse Pressure 34 mmHg Mean BP 74.3 mmHg -0.06 55.84 93.84 2D: Name Value Units LV Diastolic Volume Index 84.51 ml/m 2 (Bullet) M-Mode: Name Value Units Z-Score Min Max LV Diastolic Septal 0.80 cm 0.31 0.54 0. 99 Thickness LV Diastolic Dimension 4.12 cm -0.22 3.6 4.77 LV Diastolic Wall 0.80 cm 0.83 0.53 0.91 Thickness LV Systolic Dimension 2.77 cm 0.32 2.16 3.21 LV Fractional Shortening 32.77 % -0.95 2 9.9 42.64 M-Mode LV Mass / Height 2 51.52 g/m 2 Relative Wall Thickness 0.39 LV Systolic Function: Name Value Units Z-Score Min Max LV Diastolic Volume 97.19 ml 1.17 54.91 107.96 (Bullet) LV Systolic Volume 42.77 ml 1.88 18.43 4 3.59 (Bullet) LV Ejection Fraction 0.56 -1.39 0.53 0.7 3 (Bullet) 2D LV Mass 85.00 gm 1.17 49.15 96.62 2D LV Volume Index 84.51 2D LV Mass Index 73.91 g/m 2 Endocardial FS 32.77 % -0.95 29.9 42.64 FS Vs Stress 32.77 % Cardiac Geometry: Name Value Units Z-Score Min Max M-Mode LV Mass 98.12 gm 0.62 59.78 126.9 5 M-Mode LV Mass Index 85.32 g/m 2 LV Diastolic [place] 7.75 cm Epicardial Diameter LV Diastolic Epicardial 28.21 cm 2 Cross-Sectional Area LV Systolic [place] 6.01 cm Diameter LV Systolic 8.54 cm 2 Cross-sectional Area LV Diastolic [place] 7.09 cm 1.33 5.4 7.42 Diameter LV Diastolic 16.45 cm 2 Cross-sectional Area LV Midwall Diastolic 4.92 cm 0.04 4.31 5 .51 Dimension 2D Left Atrial Diameter 2.15 cm M-Mode LV Mass / Height 71.1 g/m M-Mode LV Mass / 41.12 g/m 19.4 38.6 Height 2.7 Aorta: Name Value Units Z-Score Min Max Ao Root Diameter 1.90 cm -1.35 1.76 2.68 Analysis M-Mode Wall Stress: Name Value Units LV Maximum Dimension 3.80 cm Datto's Name: ALFREDO PAINTING,MARY KAY Juarez Date/time of reading: Mar 15 2010 - 12:21:20 PM Report created at 12:22:02 PM on March 15, 2010 Report Number: Note:Study interpreted at [facility] unless otherwise noted Performing Organization Address City/State/ZIP Code Phon e Number [facility] documented in this encounter Visit Diagnoses Not on filedocumented in this encounter Care Teams Detective Lieutenant Relationship Specialty Start Date End Date Erika Chairez MD PCP - General 03/07/09 05/23/10 documented as of this encounter
--- OUTSIDE RECORDS SUMMARY | 2022-05-10 08:30 | XMS_ITS | Encounter Summary ---
:[address] [facility] Address [address] [place] [address] Care Team Providers Name Role Phone Erika Chairez MD Primary Care Provider Unavailable Encounter Details Date Type Department Care Team Description 07/27/2009 Hospital Encounter [facility] [address] [place], [place] 111 [facility] [phone] [place], [place] [id number] [phone] Social History Tobacco Use Types Packs/Day Years Used Date Never Assessed Sex Assigned at Date Recorded Not on file documented as of this encounter Discharge Disposition Disposition Code Departure Means Destination Auto Discharge Home documented in this encounter Progress Notes Brandi Kam NP - 07/27/2009 0000 EDT PROGRESS/FOLLOWUP NOTE - 07/27/2009 REASON FOR VISIT Followup 9 months off therapy, standard-low risk AML. 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 He was enrolled on the COG protocol [id number] and randomized to the experimental gemtuzumab arm. 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 He overall tolerated therapy well with the expected complications of significant myelosuppression. He completed therapy on 04/23/2008 and has remained in remission since. He is here today for his9 month followup and is accompanied by his mother who contributes to the history. Since his last visit with us a month ago, Geronimo's mother reports his overall health has been excellent. He has had no recent illnesses, injuries, accidents or hospitalizations. He has had some mild rhinorrhea and nasal congestion but this has not affected him significantly. He has been attending schooland is involved with the [employer]. REVIEW OF SYSTEMS Geronimo's mother reports he has had no recent illness, no fevers, no sleep disturbances, he has had an excellent energy and appetite, and he has had no complaints of headaches or vision changes. He has had some mild rhinorrhea and nasal congestion. He has had no complaints of chest pain or palpitations. He has had no complaints of shortness of breath, wheezing or cough. He has had normal bowel and bladder pattern. He has had no lumps or bumps noted or petechiae. His mother feels that he is somewhat pale today. The remainder of his review of systems are negative. FAMILY/SOCIAL HISTORY There have been no changes in family and social history since 04/27/2009. Jaswinder attends the first grade at [employer]. CURRENT MEDICATIONS None. ALLERGIES 1. Agitation with Benadryl. 2. Rash with voriconazole. 3. Fevers and rigors with AmBisome. PHYSICAL EXAM On physical exam, Geronimo is awake and alert in no acute distress. His vital signs reveal a blood pressure of 99/60. His pulse today is 100. His respiratory rate is 20. His temperature is 36.6. His weightis 32.5 kg placing him above the 90th percentile for age. His height is 132.6 cm placing him above the 95th percentile of age. On ENT exam, his sclerae are anicteric. His conjunctivae are clear. His pupils are equal and reactive to light bilaterally. His funduscopic exam shows discs flat, vessels intact. No cataracts are seen. His tympanic membranes are lucent bilaterally. Mucous membranes are moist without lesions or ulcers. His lips are dry. His lung exam shows respirations even and unlabored. Hislung rasmussen are clear and equal throughout. His cardiac exam shows peripheral perfusion normal throughout his extremities. His heart rate is a regular S1 and S2 without murmur, rub or gallop. His male exam shows circumcised male with a testicular size of 0.5 ml, soft, Red stage I. He has no lymphadenopathy palpated in his neck, axillary, inguinal or supraclavicular regions. Skin exam is grosslyintact without lesions, ulcers, petechiae or bruising. His neurologic exam shows his cranial nerves II-XII grossly intact. His musculoskeletal exam shows good strength, 5/5 to all extremities. DATA OBTAINED A complete metabolic panel was run today and is entirely within normal limits. CBC with differentialshows white blood cell count of 9580, hemoglobin 13.2, hematocrit 37.2, platelets 202,000. His differential shows 48.6% neutrophils, 41.4% lymphocytes, 8.4% monocytes, 1.1% eosinophils and 0.5% basophils with an absolute neutrophil count of 4660. IMPRESSION Geronimo is a now 9-year-old male with low risk acute myelocytic leukemia now 9 months from completion of therapy in continued remission. PLAN 1. AML. Geronimo is now 9 months from completion of therapy. A CBC with differential was drawn today andis all within normal limits therefore showing continued disease remission. We will recheck this in 1month. 2. Health promotion/maintenance. I discussed with Geronimo's mother today that the immune system following AML therapy is typically considered normal approximately 6 months off therapy. However, particularly with leukemias, this can be between 3 and 12 months. His mother has expressed that she has never given him the influenza vaccine in the past and questions whether or not she should do this. I did recommend he receive both the seasonal influenza vaccine as well as the H1N1 vaccine. She will contact her primary care's office to set this up. I also discussed that prior immunizations will likely require boosters as are division is currently finalizing guidelines and recommendations for this. 3. Toxicity monitoring following therapy. Geronimo had a CBC drawn today to asses for disease recurrence. This was normal. A CMP was drawn today to assess for liver and kidney toxicity. This was also normal. An echocardiogram and EKG will be due in 03/2010 as his anthracycline exposure was 468 mg/meter squared. Geronimo will return to us in 1 month's time for repeat history, physical and laboratory evaluation. Electronically Signed by Brandi Kam NP 08/03/2009 09:13 Brandi Kam NP Division of Pediatric Hematology / Oncology - Brandi Kam NP P - [facility] Job ID: [id number] Doc ID: [id number] cc: Erika Chairez MD documented in this encounter Plan of Treatment Upcoming Encounters Date Type Specialty Care Team Description 12/18/2022 Ancillary Procedure Cardiology 12/18/2022 Office Visit Cardiology Bg Kelsey MD [address] [place] [address], [address] [place], [place] [phone] (Wo rk) documented as of this encounter Visit Diagnoses Not on filedocumented in this encounter Care Teams Offset Plate Preparation Supervisor Relationship Specialty Start Date End Date Erika Chairez MD PCP - General 03/07/09 05/23/10 documented as of this encounter
--- OUTSIDE RECORDS SUMMARY | 2022-05-10 08:30 | XMS_ITS | Encounter Summary ---
:2000 Author Organization [facility] Address [address] [place] [address] Care Team Providers Name Role Phone Unavailable Primary Care Provider Unavailable Encounter Details Date Type Department Care Team Description 11/17/2008 Hospital Encounter [facility] - [facility], Other Juliet Velasquez MD [id number] [place] [phone] Social History Tobacco Use Types Packs/Day Years Used Date Never Assessed Sex Assigned at Date Recorded Not on file documented as of this encounter Discharge Disposition Disposition Code Departure Means Destination Home or Self Care documented in this encounter Plan of Treatment Upcoming Encounters Date Type Specialty Care Team Description 12/18/2022 Ancillary Procedure Cardiology 12/18/2022 Office Visit Cardiology Bg Kelsey MD 111 [facility] Level 1 [place], [place] [address] (Wo rk) documented as of this encounter Visit Diagnoses Not on filedocumented in this encounter
--- OUTSIDE RECORDS SUMMARY | 2022-05-10 08:30 | XMS_ITS | Encounter Summary ---
:2000 Author Organization [facility] Address [address] [place] [address] Care Team Providers Name Role Phone Erika Chairez MD Primary Care Provider Unavailable Encounter Details Date Type Department Care Team Description 02/09/2009 Before PRISM [facility] Ryan Abel, Converted Visit Hospital Pediatric Juliet Velasquez MD ([place]) Hematology & Oncology [address] [place] [address] 111 [facility] [phone] [place], [place] [phone] Social History Tobacco Use Types Packs/Day Years Used Date Never Assessed Sex Assigned at Date Recorded Not on file documented as of this encounter Plan of Treatment Upcoming Encounters Date Type Specialty Care Team Description 12/18/2022 Ancillary Procedure Cardiology 12/18/2022 Office Visit Cardiology Bg Kelsey MD 111 [facility], Level 1 [place] [phone] (Wo rk) documented as of this encounter Procedures Procedure Name Priority Date/Time Associated Comments Diagnosis COMPLETE BLOOD COUNT Routine 02/09/2009 14:31 Res ults for this AND DIFFERENTIAL EDT procedure a re in the results section. documented in this encounter Results (ABNORMAL) HEMAGRAM AND DIFFERENTIAL (02/09/2009 14:31 EDT) Pathologist Sig nature WBC 4.96 4.5 - 13.5 K/cmm [facility] RBC 4.10 4.00 - 6.20 M/cmm [facility] Hemoglobin 12.8 11.5 - 15.5 gm/dl [facility] HCT 35.7 35.0 - 45.0 % [facility] MCV 87 77 - 95 fl [facility] MCH 31.2 pg [facility] MCHC 35.9 gm/dl [facility] PLT 129 (L) 156 - 312 K/cmm [facility] RDW-CV 13.1 % [facility] Neutrophils 42.8 % [facility] Lymphocytes 44.0 % [facility] Monocytes 10.3 % [facility] Eosinophils 2.1 % [facility] Basophils 0.8 % [facility] ABS Neutrophils 2.12 K/cmm [facility] ABS Lymphs 2.19 K/cmm [facility] ABS Monocytes 0.51 K/cmm [facility] ABS Eosinophils 0.11 K/cmm [facility] ABS Basophils 0.04 K/cmm [facility] Type of Diff: Automated [facility] Specimen Performing Organization Address City/State/ZIP Code Phon e Number [facility] [address] [place] [address] SERVICES [facility] [address] [place] [address] documented in this encounter Visit Diagnoses Not on filedocumented in this encounter Care Teams Extrusion Process Operator Relationship Specialty Start Date End Date Erika Chairez MD PCP - General 03/07/09 05/23/10 documented as of this encounter
--- OUTSIDE RECORDS SUMMARY | 2022-05-10 08:30 | XMS_ITS | Encounter Summary ---
:2000 Author Organization [facility] Address [address] [place] [address] Care Team Providers Name Role Phone Erika Chairez MD Primary Care Provider Unavailable Encounter Details Date Type Department Care Team Description 02/23/2009 Before PRISM [facility] Ryan Abel, Converted Visit Hospital Pediatric Juliet Velasquez MD ([place]) Hematology & Oncology [address] [place] [address] 111 [facility] [phone] [place], [place] [phone] Social History Tobacco Use Types Packs/Day Years Used Date Never Assessed Sex Assigned at Date Recorded Not on file documented as of this encounter Plan of Treatment Upcoming Encounters Date Type Specialty Care Team Description 12/18/2022 Ancillary Procedure Cardiology 12/18/2022 Office Visit Cardiology Bg Kelsey MD 111 [facility], Level [address] [place], [place] [phone] (Wo rk) documented as of this encounter Procedures Procedure Name Priority Date/Time Associated Comments Diagnosis COMPLETE BLOOD COUNT Routine 02/23/2009 12:41 Res ults for this AND DIFFERENTIAL EDT procedure a re in the results section. documented in this encounter Results (ABNORMAL) HEMAGRAM AND DIFFERENTIAL (02/23/2009 12:41 EDT) WBC 4.11 (L) 4.5 - 13.5 [facility] RBC 4.03 4.00 - 6.20 [facility] Hemoglobin 12.5 11.5 - 15.5 [facility] gm/dl LAB HCT 34.7 (L) 35.0 - 45.0 % [facility] MCV 86 77 - 95 fl [facility] MCH 30.9 pg [facility] MCHC 35.9 gm/dl [facility] PLT 124 (L) 156 - 312 [facility] RDW-CV 13.6 % [facility] Neutrophils 40.0 % [facility] Bands 0.0 % [facility] Lymphocytes 34.0 % [facility] Atyp Lymphs 6.0 % [facility] Monocytes 17.0 % [facility] Eosinophils 2.0 % [facility] Basophils 1.0 % [facility] ABS Neutrophils 1.64 K/cmm [facility] ABS Bands 0.00 K/cmm [facility] ABS Lymphs 1.40 K/cmm [facility] ABS Atyp Lymphs 0.25 K/cmm [facility] ABS Monocytes 0.70 K/cmm [facility] ABS Eosinophils 0.08 K/cmm [facility] ABS Basophils 0.04 K/cmm [facility] RBC Morphology 1+ Poikilocytosis [facility] WBC Morphology 1+ Smudge cells [facility] Comment Reviewed by Dr. [facility] Type of Diff: Manual [facility] Specimen Performing Organization Address City/State/ZIP Code Phon e Number [facility] [address] [place] [address] SERVICES [facility] [address] [place] [address] documented in this encounter Visit Diagnoses Not on filedocumented in this encounter Care Teams Cyber Engineer Relationship Specialty Start Date End Date Erika Chairez MD PCP - General 03/07/09 05/23/10 documented as of this encounter
--- OUTSIDE RECORDS SUMMARY | 2022-05-10 08:30 | XMS_ITS | Encounter Summary ---
:2000 Author Organization [facility] Address [address] [place] [address] Care Team Providers Name Role Phone Erika Chairez MD Primary Care Provider Unavailable Encounter Details Date Type Department Care Team Description 05/25/2009 [facility] H[facility] & On[facility] [address] [place], [place] 111 [facility] [phone] [place] [address] [phone] Social History Tobacco Use Types Packs/Day Years [...] Bg Kelsey MD 111 [facility], Level 1 [place], [place] [address] (Wo rk) documented as of this encounter Visit Diagnoses Not on filedocumented in this encounter Care Teams Interlibrary Loan Services Librarian Relationship Specialty Start Date End Date Erika Chairez MD PCP - General 03/07/09 05/23/10 documented as of this encounter
--- OUTSIDE RECORDS SUMMARY | 2022-05-10 08:30 | XMS_ITS | Encounter Summary ---
:2000 Author Organization [facility] Address [address] [place] [address] Care Team Providers Name Role Phone Erika Chairez MD Primary Care Provider Unavailable Encounter Details Date Type Department Care Team Description 02/08/2010 [facility] Juliet Velasquez MD [id number] [place] [phone] Social History Tobacco Use Types Packs/Day Years Used Date Never Assessed Sex Assigned at Date Recorded Not on file documented as of this encounter Discharge Disposition Disposition Code Departure Means Destination Home or Self Group Home documented in this encounter Plan of Treatment Upcoming Encounters Date Type Specialty Care Team Description 12/18/2022 Ancillary Procedure Cardiology 12/18/2022 Office Visit Cardiology Bg Kelsey MD 111 [facility], Level 1 [place], [place] [phone] (Wo rk) documented as of this encounter Procedures Procedure Name Priority Date/Time Associated Comments Diagnosis SLIDE REQUEST Routine 02/08/2010 10:41 Results fo r this EDT procedure are i n the results section. COMPLETE BLOOD COUNT Routine 02/08/2010 10:41 Res ults for this AND DIFFERENTIAL EDT procedure a re in the results section. documented in this encounter Results SLIDE REQUEST (02/08/2010 10:41 EDT) Pathologist Sig nature Note A smear is filed in the [facility] Specimen Performing Organization Address City/State/ZIP Code Phon e Number [facility] [address] [place] [address] [facility] [address] [place] [address] HEMAGRAM AND DIFFERENTIAL (02/08/2010 10:41 EDT) Pathologist Sig nature WBC 9.46 4.5 - 13.5 K/cmm [facility] RBC 4.53 4.00 - 6.20 M/cmm [facility] Hemoglobin 13.5 11.5 - 15.5 gm/dl [facility] HCT 38.9 35.0 - 45.0 % [facility] MCV 86 77 - 95 fl [facility] MCH 29.8 pg [facility] MCHC 34.8 gm/dl [facility] PLT 191 156 - 312 K/cmm [facility] RDW-CV 13.8 % [facility] Neutrophils 45.6 % [facility] Lymphocytes 45.6 % [facility] Monocytes 7.6 % [facility] Eosinophils 0.8 % [facility] Basophils 0.4 % [facility] ABS Neutrophils 4.31 K/cmm [facility] ABS Lymphs 4.31 K/cmm [facility] ABS Monocytes 0.72 K/cmm [facility] ABS Eosinophils 0.08 K/cmm [facility] ABS Basophils 0.04 K/cmm [facility] Type of Diff: Automated [facility] Specimen Blood specimen (specimen) Performing Organization Address City/State/ZIP Code Phon e Number [facility] [address] [place] [address] [facility] [address] [place] [address] documented in this encounter Visit Diagnoses Not on filedocumented in this encounter Care Teams High School Foreign Language Tutor Relationship Specialty Start Date End Date Erika Chairez MD PCP - General 03/07/09 05/23/10 documented as of this encounter
--- OUTSIDE RECORDS SUMMARY | 2022-05-10 08:30 | XMS_ITS | Encounter Summary ---
:2000 Author Organization [facility] Address [address] [place] [address] Care Team Providers Name Role Phone Sherman King MD Primary Care Provider Encounter Details Date Type Department Care Team Description 07/26/2010 [facility] supervisor Hematology & Oncology [address] [place], [place] 111 [facility] [phone] [place] [address] [phone] Social History Tobacco Use Types Packs/Day Years Used Date Never Assessed Sex Assigned at Date Recorded Not on file documented as of this encounter Discharge Disposition Disposition Code Departure Means Destination Home or Self Intermediate documented in this encounter Plan of Treatment Upcoming Encounters Date Type Specialty Care Team Description 12/18/2022 Ancillary Procedure Cardiology 12/18/2022 Office Visit Cardiology Bg Kelsey MD 111 [facility], Level 1 [place], [place] [phone] (Wo rk) documented as of this encounter Visit Diagnoses Not on filedocumented in this encounter Care Teams Bsw Relationship Specialty Start Date End Date Sherman King MD PCP - General 05/24/10 07/01/12 [place] [phone] documented as of this encounter
--- OUTSIDE RECORDS SUMMARY | 2022-05-10 08:30 | XMS_ITS | Encounter Summary ---
:2000 Author Organization [facility] Address [address] [place] [address] Care Team Providers Name Role Phone Sherman King MD Primary Care Provider Erika Chairez MD Primary Care Provider Unavailable Sully Baldwin SUGAR SAMPLER Unavailable Unknown, Provider Primary Care Provider Erika Chairez MD Primary Care Provider Unavailable Unknown, Provider Primary Care Provider Bernard Newman MD Primary Care Provider [phone] Shellie Garza RN Unavailable Unavailable Encounter Details Date Type Department Care Team Description 01/19/2009 Hospital Encounter [facility] , [facility] Juliet Velasquez MD 111 [facility] [address] [place], [place] [phone] [place] [phone] Social History Tobacco Use Types Packs/Day Years [...] / COVID-19? documented as of this encounter Plan of Treatment Upcoming Encounters Date Type Specialty Care Team Description 12/18/2022 Ancillary Procedure Cardiology 12/18/2022 Office Visit Cardiology Bg Kelsey MD [address] [place] [address], Level 1 [place], [place] [phone] (Wo rk) documented as of this encounter Visit Diagnoses Not on filedocumented in this encounter Care Teams Manager Employee Benefits Relationship Specialty Start Date End Date Sherman King MD PCP - General 05/24/10 07/01/12 [address] [facility] [place] [address] Erika Chairez MD PCP - General 03/07/09 05/23/10 Unknown, Provider, PCP - General 07/02/12 07/06/12 Erika Chairez MD PCP - General 07/07/12 05/05/13 Unknown, Provider, PCP - General 05/06/13 10/20/13 Bernard Newman MD PCP - General 10/21/13 [address] [facility] [phone] Sully Baldwin, SUGAR SAMPLER Nurse Practitioner 09/05/[address] [place] [phone] Shellie Garza, JUAQUIN Registered Nurse 03/13/[address] [place] [address] documented as of this encounter
--- OUTSIDE RECORDS SUMMARY | 2022-05-10 08:30 | XMS_ITS | Encounter Summary ---
:2000 Author Organization [facility] Address [address] [place] [address] Care Team Providers Name Role Phone Erika Chairez MD Primary Care Provider Unavailable Encounter Details Date Type Department Care Team Description 01/19/2009 Before [facility], Converted Visit Hospital Pediatric Juliet Velasquez MD ([place]) Hematology & Oncology [address] [place] [address] 111 [facility] [phone] [place], [place] [phone] Social History Tobacco Use Types Packs/Day Years Used Date Never Assessed Sex Assigned at Date Recorded Not on file documented as of this encounter Plan of Treatment Upcoming Encounters Date Type Specialty Care Team Description 12/18/2022 Ancillary Procedure Cardiology 12/18/2022 Office Visit Cardiology Bg Kelsey MD 111 [facility], Level 1 [place], [place] [phone] (Wo rk) documented as of this encounter Procedures Procedure Name Priority Date/Time Associated Comments Diagnosis COMPLETE BLOOD COUNT Routine 01/19/2009 14:37 Res ults for this AND DIFFERENTIAL EDT procedure a re in the results section. documented in this encounter Results (ABNORMAL) HEMAGRAM AND DIFFERENTIAL (01/19/2009 14:37 EDT) Pathologist Sig nature WBC 6.85 4.5 - 13.5 K/cmm [facility] RBC 3.91 (L) 4.00 - 6.20 M/cmm [facility] Hemoglobin 12.4 11.5 - 15.5 gm/dl [facility] HCT 34.9 (L) 35.0 - 45.0 % [facility] MCV 89 77 - 95 fl [facility] MCH 31.7 pg [facility] MCHC 35.5 gm/dl [facility] PLT 162 156 - 312 K/cmm [facility] RDW-CV 13.6 % [facility] Neutrophils 52.8 % [facility] Lymphocytes 35.8 % [facility] Monocytes 8.4 % [facility] Eosinophils 2.8 % [facility] Basophils 0.2 % [facility] ABS Neutrophils 3.62 K/cmm [facility] ABS Lymphs 2.45 K/cmm [facility] ABS Monocytes 0.57 K/cmm [facility] ABS Eosinophils 0.19 K/cmm [facility] ABS Basophils 0.02 K/cmm [facility] Type of Diff: Automated [facility] Specimen Performing Organization Address City/State/ZIP Code Phon e Number [facility] [address] [place] [address] SERVICES [facility] [address] [place] [address] documented in this encounter Visit Diagnoses Not on filedocumented in this encounter Care Teams Unit Controller Relationship Specialty Start Date End Date Erika Chairez MD PCP - General 03/07/09 05/23/10 documented as of this encounter
--- OUTSIDE RECORDS SUMMARY | 2022-05-10 08:30 | XMS_ITS | Encounter Summary ---
:2000 Author Organization [facility] Address [address] [place] [address] Care Team Providers Name Role Phone Unavailable Primary Care Provider Unavailable Encounter Details Date Type Department Care Team Description 12/22/2008 Hospital Encounter [facility] , Perioperative Services- Juliet Velasquez MD [facility] 1000 [facility] 111 [place], [place] [phone] Social History Tobacco Use Types Packs/Day [...] 111 [facility], [facility], Level 1 [place], [place] [phone] (Wo rk) documented as of this encounter Procedures Procedure Name Priority Date/Time Associated Comments Diagnosis ECHOCARDIOGRAM 12/22/2008 11:30 Results f or this EST procedure are i n the results section. IR REMOVE CENTRAL 12/22/2008 9:45 Results for this VENOUS CATHETER EST procedure ar e in the results section. SLIDE REQUEST Routine 12/22/2008 8:38 Results for this EST procedure are i n the results section. COMPLETE BLOOD COUNT Routine 12/22/2008 8:38 Resu lts for this AND DIFFERENTIAL EST procedure a re in the results section. COMPREHENSIVE METABOLIC Routine 12/22/2008 8:38 R esults for this PANEL (CMP) EST procedure are i n the results section. documented in this encounter Results ECHOCARDIOGRAM (12/22/2008 11:30 EST) Specimen Narrative [facility] - 03/27/2009 11 :01 EDT color/pulse Doppler Site Location: Date of Appt: December 22 9, 11:30 AM Pediatric Echocardiogram Report Demographics and Visit Data: : 2000. ??Age: 8y/7m/17d. ??BSA (m 2): 1.02. ??Height (cm): 127.5. Weight (kg): 29.3. ??BMI (kg/m 2): 18.02 . ??Patient location: [facility]. Height Centile: 94.0. ??Weight Centile: 98.42. ??Person requesting test: ARTHUR PAINTING,JULIET#[place]. Home Performance Laborer: Lexy Payan. ??Reason for test: color/pulse Doppler. 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 ??Procedure Description: 2D ECHOCARDIOGRAM W/WO M-MODE. Summary: Status post adriamycin therapy. Borderline dilated left ventricular size , with normal wall thickness and systolic function. No significant mitral regurgitation or a ortic regurgitation. No intracardiac masses seen. Compared with last study, the left ventr icular size has increased somewhat more than expected for somatic growth, a nd is now borderline dilated. Findings: Veins and Atria: >> Normal Left Atrium >> Normal Right Atrium A-V Canal: >> Mitral regurgitation, ruled out No significant mitral regurgitation. Ventricles: >> Global left ventricular dysfunction, ruled out Normal left ventricular size, wall thick ness and systolic function. >> Left ventricular dilation or enlargem ent, trivial >> Normal Right Ventricle >> Intact Ventricular Septum Conotruncus: >> Aortic regurgitation, ruled out No aortic regurgitation seen. >> Normal Pulmonary Valve >> Normal Aortic Valve Great Arteries: >> Normal Pulmonary Artery Other: >> S/p adriamycin therapy >> Intracardiac mass, ruled out No intracardiac mass or thrombus seen. Measures: Systemic Arterial Function: Name ? Value ?Units ?Z-Score ?Min ?Max Systolic BP ? 87 ? mmH g ? -1.14 ? 78.84 ?? 117.6 Diastolic BP ? 51 ? mmH g ? -0.1 ?33.93 ?? 69.83 Pulse Pressure ? 36.00 ?mmHg Mean BP ? 63.0 ? mmHg ? -1.19 ? 55.87 ?? 91.9 2D: Name ? Value ?Units LV Diastolic Volume Index (Bullet) ? 92.19 ?mL/m 2 M-Mode: Name ? Value ?Units ?Z-Score ?Min ?Max LV Diastolic Septal Thickness ? 0.76 ? cm ? 0.2 ? 0.54 ?1.01 LV Diastolic Dimension ? 4.59 ? cm ? 2.02 ?3.31 ?4.57 LV Diastolic Wall Thickness ? 0.60 ? cm ? -1.26 ? 0.55 ?0.91 LV Systolic Dimension ? 3.05 ? cm ? 1.8 ? 2.06 ?3.1 LV Fractional Shortening ? 33.55 ?% ?-0.53 ? 30.02 ?? 39.68 LV Systolic Function: Name ? Value ?Units ?Z-Score ?Min ?Max LV Diastolic Volume (Bullet) ? 94.03 ?mL ? 2.36 ?42.13 ?? 89. LV Systolic Volume (Bullet) ? 38.20 ?mL ? 2.42 ?12.68 ?? 35.04 LV Ejection Fraction (Bullet) ? 59.37 ?% ?-0.67 ? 49.92 ?? 78.52 2D LV Mass ? 72.36 ?g ?1.92 ?31.82 ?? 73.11 2D LV Volume Index ? 92.18 2D LV Mass Index ? 70.94 ?g/m 2 Endocardial FS ? 33.55 ?% ?-0.53 ? 30.02 ?? 39.68 FS Vs Stress ? 33.55 ?% Cardiac Geometry: Name ? Value ?Units ?Z-Score ?Min ?Max M-Mode LV Mass ? 95.40 ?g ?0.93 ?53.37 ?? 117.45 M-Mode LV Mass Index ? 93.53 ?g/m 2 LV Diastolic Long Kuna Epicardial Diamet er ? 7.65 ? cm LV Diastolic Epicardial Cross-Sectional Area ? 26.10 ?cm 2 LV Systolic Long Kuna Diameter ? 5.57 ? cm LV Systolic Cross-sectional Area ? 8.23 ? cm 2 LV Diastolic Long Kuna Diameter ? 6.88 ? cm ? 1.75 ?5.11 ?6.98 LV Diastolic Cross-sectional Area ? 16.40 ?cm 2 LV Midwall Diastolic Dimension ? 5.19 ? cm 2D Left Atrial Diameter ? 2.33 ? cm M-Mode LV Mass / Height ? 74.82 ?g/m M-Mode LV Mass / Height 2.7 ? 49.51 ?g/m ?19.4 ?38.6 Aorta: Name ? Value ?Units ?Z-Score ?Min ?Max Ao Root Diameter ? 1.85 ? cm ? -0.75 ? 1.58 ?2.44 Blair's Name: DUGLAS FUENTES MD Date/time of reading: Dec 23 2008 - 4:55:14 PM Report created at 4:55:34 PM on Tuesday, December 23, 2008 Procedure Note Duglas Fuentes MD - 03/27/2009 color/pulse Doppler Site Location: Date of Appt: December 22, 11:30 AM Pediatric Echocardiogram Report Demographics and Visit Data: : 2000. Age: 8y/7m/17d. BSA (m 2 ): 1.02. Height (cm): 127.5. Weight (kg): 29.3. BMI (kg/m 2): 18.02. Patient location: [facility]. Height Centile: 94.0. Weight Centile: 98 .42. Person requesting test: ARTHUR PAINTING,JULIET#[place]. Home Performance Laborer: Lexy Paayn. Reason fo r test: color/pulse Doppler. 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 Procedure Description: 2D ECHOCARDIOGRAM W/WO M-MODE. Summary: Status post adriamycin therapy. Borderline dilated left ventricular size , with normal wall thickness and systolic function. No significant mitral regurgitation or a ortic regurgitation. No intracardiac masses seen. Compared with last study, the left ventr icular size has increased somewhat more than expected for somatic growth, a nd is now borderline dilated. Findings: Veins and Atria: >> Normal Left Atrium >> Normal Right Atrium A-V Canal: >> Mitral regurgitation, ruled out No significant mitral regurgitation. Ventricles: >> Global left ventricular dysfunction, ruled out Normal left ventricular size, wall thick ness and systolic function. >> Left ventricular dilation or enlargem ent, trivial >> Normal Right Ventricle >> Intact Ventricular Septum Conotruncus: >> Aortic regurgitation, ruled out No aortic regurgitation seen. >> Normal Pulmonary Valve >> Normal Aortic Valve Great Arteries: >> Normal Pulmonary Artery Other: >> S/p adriamycin therapy >> Intracardiac mass, ruled out No intracardiac mass or thrombus seen. Measures: Systemic Arterial Function: Name Value Units Z-Score Min Max Systolic BP 87 mmHg -1.14 78.84 117.6 Diastolic BP 51 mmHg -0.1 33.93 69.83 Pulse Pressure 36.00 mmHg Mean BP 63.0 mmHg -1.19 55.87 91.9 2D: Name Value Units LV Diastolic Volume Index (Bullet) 92.19 mL/m 2 M-Mode: Name Value Units Z-Score Min Max LV Diastolic Septal Thickness 0.76 cm 0.2 0.54 1.01 LV Diastolic Dimension 4.59 cm 2.02 3.31 4.57 LV Diastolic Wall Thickness 0.60 cm -1.26 0.55 0.91 LV Systolic Dimension 3.05 cm 1.8 2.06 3.1 LV Fractional Shortening 33.55 % -0.53 30.02 39.68 LV Systolic Function: Name Value Units Z-Score Min Max LV Diastolic Volume (Bullet) 94.03 mL 2.36 42.13 89. LV Systolic Volume (Bullet) 38.20 mL 2.42 12.68 35.04 LV Ejection Fraction (Bullet) 59.37 % -0.67 49.92 78.52 2D LV Mass 72.36 g 1.92 31.82 73.11 2D LV Volume Index 92.18 2D LV Mass Index 70.94 g/m 2 Endocardial FS 33.55 % -0.53 30.02 39.68 FS Vs Stress 33.55 % Cardiac Geometry: Name Value Units Z-Score Min Max M-Mode LV Mass 95.40 g 0.93 53.37 117.45 M-Mode LV Mass Index 93.53 g/m 2 LV Diastolic Long Kuna Epicardial Diamet er 7.65 cm LV Diastolic Epicardial Cross-Sectional Area 26.10 cm 2 LV Systolic Long Kuna Diameter 5.57 cm LV Systolic Cross-sectional Area 8.23 cm 2 LV Diastolic Long Kuna Diameter 6.88 cm 1.75 5.11 6.98 LV Diastolic Cross-sectional Area 16.40 cm 2 LV Midwall Diastolic Dimension 5.19 cm 2D Left Atrial Diameter 2.33 cm M-Mode LV Mass / Height 74.82 g/m M-Mode LV Mass / Height 2.7 49.51 g/m 19.4 38.6 Aorta: Name Value Units Z-Score Min Max Ao Root Diameter 1.85 cm -0.75 1.58 2.44 Blair's Name: DUGLAS FUENTES MD Date/time of reading: Dec 23 2008 - 4:55:14 PM Report created at 4:55:34 PM on Tuesday, December 23, 2008 Performing Organization Address City/State/ZIP Code Phon e Number [facility] 111 [facility] [place] [address] [facility] [address] [place], [place] [address] IR REMOVE CENTRAL VENOUS CATHETER (12/22/2008 9:45 EST) Anatomical Region Laterality Modality Other Specimen Narrative [facility] - 03/27/2009 11 :23 EDT 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 Please remove Broviac catheter. Description: Utilizing sterile technique and local lidocaine anesthesia, the tunneled right internal jugular vein Broviac catheter was removed without difficulty. The joseph ent tolerated the procedure well. No complication occurred. The jaime mated blood loss was 0. The procedure was performed by Darin jones, physician's senior executive assistant. ??The procedure was supervise d by Dr. Wisam Long. No qualified echocardiography radiology technologist was haroldo montoya for this procedure. Impression: Successful removal of the tu nneled right internal jugular vein Broviac catheter, as described tessa watkins Procedure Note Wisam Long MD - 03/27/2009 Patient with broviac and AML now treatm ent is done Examination: Tunneled right internal jug ular vein Broviac catheter removal 12/22/2008 at 0945 hours History: Completed chemotherapy. Please remove Broviac catheter. Description: Utilizing sterile technique and local lidocaine anesthesia, the tunneled right internal jugular vein Broviac catheter was removed without difficulty. The joseph ent tolerated the procedure well. No complication occurred. The jaime mated blood loss was 0. The procedure was performed by Darin jones, physician's senior executive assistant. The procedure was supervised by Dr. Wisam Long. No qualified echocardiography radiology technologist was haroldo montoya for this procedure. Impression: Successful removal of the tu nneled right internal jugular vein Broviac catheter, as described abov e. Performing Organization Address City/[facility]/ZIP Code Phon e Number [facility] 111 [facility] [address] [address] [facility] [address] [place], [place] [address] NOTE: LABORATORY USE ONLY (12/22/2008 8:38 EST) Pathologist Sig nature Note A smear is filed in the [facility] lab Specimen Performing Organization Address [facility] Code Phon e Number [facility] [address] [place] [address] SERVICES [facility] [address] [place] [address] (ABNORMAL) HEMAGRAM AND DIFFERENTIAL (12/22/2008 8:38 EST) Pathologist Sig nature WBC 3.85 (L) 4.5 - 13.5 K/cmm [facility] RBC 3.63 (L) 4.00 - 6.20 M/cmm [facility] Hemoglobin 11.6 11.5 - 15.5 gm/dl [facility] HCT 33.0 (L) 35.0 - 45.0 % [facility] MCV 91 77 - 95 fl [facility] MCH 32.1 pg [facility] MCHC 35.3 gm/dl [facility] PLT 195 156 - 312 K/cmm [facility] RDW-CV 19.0 % [facility] Neutrophils 40.5 % [facility] Lymphocytes 39.0 % [facility] Monocytes 16.0 % [facility] Eosinophils 4.2 % [facility] Basophils 0.3 % [facility] ABS Neutrophils 1.56 K/cmm [facility] ABS Lymphs 1.50 K/cmm [facility] ABS Monocytes 0.62 K/cmm [facility] ABS Eosinophils 0.16 K/cmm [facility] ABS Basophils 0.01 K/cmm [facility] Type of Diff: Automated [facility] Specimen Performing Organization Address City/[facility]/ZIP Code Phon e Number [facility] [address] [place] [address] SERVICES [facility] [address] [place] [address] (ABNORMAL) COMPREHENSIVE METABOLIC PANEL (12/22/2008 8:38 EST) Pathologist Sig nature Potassium 4.2 3.6 - 5.2 mEq/L [facility] Sodium 142 136 - 145 mEq/L [facility] Chloride 105 96 - 110 mEq/L [facility] CO2 27 24 - 32 mEq/L [facility] Alkaline Phosphatase 204 150 - 350 U/L [facility] Bilirubin, Total <0.5 0.0 - 1.4 mg/dl [facility] AST 45 23 - 58 U/L [facility] ALT 32 (H) 10 - 25 U/L [facility] Albumin 4.3 3.5 - 5.2 g/dl [facility] Total Protein 6.9 5.9 - 7.8 g/dl [facility] Creatinine 0.40 0.1 - 0.7 mg/dl [facility] GFR, Calculated Age <18 ml/min/1.73m2 [facility] BUN 10 7 - 18 mg/dl [facility] Calcium 9.3 8.8 - 11.1 mg/dl [facility] Calculated Calcium 9.4 8.8 - 11.1 mg/dl [facility] Glucose, Serum 81 70 - 100 mg/dl [facility] Fasting? Yes [facility] Specimen Performing Organization Address City/State/ZIP Code Phon e Number [facility] [address] [place] [address] SERVICES [facility] [address] [place] [address] documented in this encounter Visit Diagnoses Not on filedocumented in this encounter
--- OUTSIDE RECORDS SUMMARY | 2022-05-10 08:30 | XMS_ITS | Encounter Summary ---
:2002 Author Organization [facility] Address [address] [place] [address] Care Team Providers Name Role Phone Erika Chairez MD Primary Care Provider Unavailable Encounter Details Date Type Department Care Team Description 10/26/2009 Hospital [facility] Velasquez MD [id number] [place] [phone] Social History Tobacco Use Types Packs/Day Years Used Date Never Assessed Sex Assigned at Date Recorded Not on file documented as of this encounter Discharge Disposition Disposition Code Departure Means Destination Home or Self Senior Living documented in this encounter Plan of Treatment Upcoming Encounters Date Type Specialty Care Team Description 12/18/2022 Ancillary Procedure Cardiology 12/18/2022 Office Visit Cardiology Bg Kelsey MD 111 [facility], Level 1 [place], [place] [phone] (Wo rk) documented as of this encounter Procedures Procedure Name Priority Date/Time Associated Comments Diagnosis SLIDE REQUEST Routine 10/26/2009 8:44 Results for this EST procedure are i n the results section. COMPLETE BLOOD COUNT Routine 10/26/2009 8:44 Resu lts for this AND DIFFERENTIAL EST procedure a re in the results section. documented in this encounter Results SLIDE REQUEST (10/26/2009 8:44 EST) Pathologist Sig nature Note A smear is filed in the [facility] lab Specimen Performing Organization Address City/State/ZIP Code Phon e Number [facility] [address] [place] [address] SERVICES [facility] [address] [place] [address] HEMAGRAM AND DIFFERENTIAL (10/26/2009 8:44 EST) Pathologist Sig nature WBC 7.90 4.5 - 13.5 K/cmm [facility] RBC 4.56 4.00 - 6.20 M/cmm [facility] Hemoglobin 13.7 11.5 - 15.5 gm/dl [facility] HCT 39.3 35.0 - 45.0 % [facility] MCV 86 77 - 95 fl [facility] MCH 30.0 pg [facility] MCHC 34.8 gm/dl [facility] PLT 174 156 - 312 K/cmm [facility] RDW-CV 13.3 % [facility] Neutrophils 38.9 % [facility] Lymphocytes 50.7 % [facility] Monocytes 8.7 % [facility] Eosinophils 1.4 % [facility] Basophils 0.3 % [facility] ABS Neutrophils 3.07 K/cmm [facility] ABS Lymphs 4.01 K/cmm [facility] ABS Monocytes 0.69 K/cmm [facility] ABS Eosinophils 0.11 K/cmm [facility] ABS Basophils 0.03 K/cmm [facility] Type of Diff: Automated [facility] Specimen Blood specimen (specimen) Performing Organization Address City/State/ZIP Code Phon e Number [facility] [address] [place] [address] [facility] [address] [place] [address] documented in this encounter Visit Diagnoses Not on filedocumented in this encounter Care Teams Sales Team Member Relationship Specialty Start Date End Date Erika Chairez MD PCP - General 03/07/09 05/23/10 documented as of this encounter
--- OUTSIDE RECORDS SUMMARY | 2022-05-10 08:30 | XMS_ITS | Encounter Summary ---
:2002 Author Organization Health system Address [address] [place] [address] Care Team Providers Name Role Phone Erika Chairez MD Primary Care Provider Unavailable Encounter Details Date Type Department Care Team Description 04/06/2009 Hospital Encounter [facility] [address] [place] [address] Hematology & Oncology [facility] [phone] [place] [address] [place] [address] [phone] Social History Tobacco Use Types Packs/Day Years Used Date Never Assessed Sex Assigned at Date Recorded Not on file documented as of this encounter Discharge Disposition Disposition Code Departure Means Destination Home or Self Senior Care documented in this encounter Plan of Treatment Upcoming Encounters Date Type Specialty Care Team Description 12/18/2022 Ancillary Procedure Cardiology 12/18/2022 Office Visit Cardiology Bg Kelsey MD 111 [facility], Level 1 [place], [place] [phone] (Wo rk) documented as of this encounter Visit Diagnoses Not on filedocumented in this encounter Care Teams Orthotist Or Prosthetist Relationship Specialty Start Date End Date Erika Chairez MD PCP - General 03/07/09 05/23/10 documented as of this encounter
--- OUTSIDE RECORDS SUMMARY | 2022-05-10 08:30 | XMS_ITS | Encounter Summary ---
:2002 Author Organization [facility] Address [address] [place] [address] Care Team Providers Name Role Phone Erika Chairez MD Primary Care Provider Unavailable Encounter Details Date Type Department Care Team Description 01/25/2010 Hospital Encounter [facility] Ryan morales, Pediatric Hematology & Juliet Velasquez MD Oncology - [facility] [address] [place] [phone] Social History Tobacco Use [...] Cardiology Bg Kelsey MD 111 [facility], [facility] Level 1 [place], [place] [address] (Wo rk) documented as of this encounter Procedures Procedure Name Priority Date/Time Associated Diagnosis Comme nts CHEST PA AND 01/25/2010 15:31 Results for this LATERAL EDT procedure are i n the results section. documented in this encounter Results CHEST PA AND LATERAL (01/25/2010 15:31 EDT) Anatomical Region Laterality Modality Other Specimen Narrative [facility] - 01/25/2010 16:39 EDT CHEST PA AND LAT ??Jan 25, 2010 03:31:00 PM Signs and Symptoms/Comments: ??9yo with fevers 3 weeks ago, now with cough, wheezing right lower lobe Comparison: CT chest 09/27/2008, portabl e chest 09/20/2008. Findings: Upright PA and lateral views of the ches t were obtained with priors for comparison. ??The cardiomediastinum, ke and pulmonary vasculature are within normal limits. ?? No adenopathy is appreciated. Hemidiaphragms are distinct with no evid ence of pleural effusion. There is no evidence of pneumothorax. ?? Abdominal bowel gas pattern is nonspecific. Extrathoracic soft tissues and skeletal examination is unremarkable. Impression: No radiographic evidence of acute cardiopulmonary disease. I have personally reviewed the images an d the above interpretation and agree with the findings. Procedure Note Eduardo Falcon MD / Eduardo Falcon MD / Eduardo Falcon MD - 01/25/2010 CHEST PA AND LAT Jan 25, 2010 03:31:00 P M Signs and Symptoms/Comments: 9yo with fe vers 3 weeks ago, now with cough, wheezing right lower lobe Comparison: CT chest 09/27/2008, portabl e chest 09/20/2008. Findings: Upright PA and lateral views of the ches t were obtained with priors for comparison. The cardiomediastinum, h hoa and pulmonary vasculature are within normal limits. No adenopathy is appreciated. Hemidiaphragms are distinct with no evid ence of pleural effusion. There is no evidence of pneumothorax. Ab dominal bowel gas pattern is nonspecific. Extrathoracic soft tissues and skeletal examination is unremarkable. Impression: No radiographic evidence of acute cardiopulmonary disease. I have personally reviewed the images an d the above interpretation and agree with the findings. Performing Organization Address City/State/ZIP Code Phon e Number [facility] documented in this encounter Visit Diagnoses Not on filedocumented in this encounter Care Teams Adjutant General Relationship Specialty Start Date End Date Erika Chairez MD PCP - General 03/07/09 05/23/10 documented as of this encounter
--- OUTSIDE RECORDS SUMMARY | 2022-05-10 08:30 | XMS_ITS | Encounter Summary ---
:2002 Author Organization [facility] Address [address] [place] [address] Care Team Providers Name Role Phone Erika Chairez MD Primary Care Provider Unavailable Encounter Details Date Type Department Care Team Description 01/25/[address] [facility] Juliet Velasquez MD 111 [facility] [address] [place], [place] [id number] [place] [phone] Social History Tobacco Use Types Packs/Day Years Used Date Never Assessed Sex Assigned at Date Recorded Not on file documented as of this encounter Discharge Disposition Disposition Code Departure Means Destination Home or Self Residential documented in this encounter Progress Notes HAND I TUBE BENDER, KATY 2 - 03/06/2014 1635 EDT documented in this encounter Plan of Treatment Upcoming Encounters Date Type Specialty Care Team Description 12/18/2022 Ancillary Procedure Cardiology 12/18/2022 Office Visit Cardiology Bg Kelsey MD 111 [facility], [facility], Level 1 [place], [place] [phone] (Wo rk) documented as of this encounter Procedures Procedure Name Priority Date/Time Associated Comments Diagnosis COMPLETE BLOOD COUNT Routine 01/25/2010 13:35 Res ults for this AND DIFFERENTIAL EDT procedure a re in the results section. documented in this encounter Results (ABNORMAL) HEMAGRAM AND DIFFERENTIAL (01/25/2010 13:35 EDT) Pathologist Sig nature WBC 6.53 4.5 - 13.5 K/cmm [facility] RBC 4.25 4.00 - 6.20 M/cmm [facility] Hemoglobin 12.5 11.5 - 15.5 gm/dl [facility] HCT 36.1 35.0 - 45.0 % [facility] MCV 85 77 - 95 fl [facility] MCH 29.5 pg [facility] MCHC 34.7 gm/dl [facility] PLT 151 (L) 156 - 312 K/cmm [facility] RDW-CV 13.9 % [facility] Neutrophils 30.5 % [facility] Lymphocytes 56.5 % [facility] Monocytes 11.3 % [facility] Eosinophils 1.3 % [facility] Basophils 0.4 % [facility] ABS Neutrophils 1.99 K/cmm [facility] ABS Lymphs 3.69 K/cmm [facility] ABS Monocytes 0.74 K/cmm [facility] ABS Eosinophils 0.09 K/cmm [facility] ABS Basophils 0.02 K/cmm [facility] Type of Diff: Automated [facility] Specimen Blood specimen (specimen) Performing Organization Address City/State/ZIP Code Phon e Number [facility] [address] [place] [address] SERVICES [facility] [address] [place] [address] documented in this encounter Visit Diagnoses Not on filedocumented in this encounter Care Teams Extension Course Counselor Relationship Specialty Start Date End Date Erika Chairez MD PCP - General 03/07/09 05/23/10 documented as of this encounter
--- OUTSIDE RECORDS SUMMARY | 2022-05-10 08:30 | XMS_ITS | Encounter Summary ---
:2002 Author Organization [facility] Address [address] [place] [address] Care Team Providers Name Role Phone Erika Chairez MD Primary Care Provider Unavailable Encounter Details Date Type Department Care Team Description 07/27/2009 Hospital Encounter [facility] Juliet Velasquez MD 111 [facility] [address] [place], [place] [id number] [place] [phone] Social History Tobacco Use Types Packs/Day Years Used Date Never Assessed Sex Assigned at Date Recorded Not on file documented as of this encounter Discharge Disposition Disposition Code Departure Means Destination Home or Self Custodial documented in this encounter Plan of Treatment Upcoming Encounters Date Type Specialty Care Team Description 12/18/2022 Ancillary Procedure Cardiology 12/18/2022 Office Visit Cardiology Bg Kelsey MD 111 [facility], [facility], Level 1 [place], [place] [phone] (Wo rk) Pending Results Name Type Priority Associated Diagnoses Date/Ti me SMEAR REVIEW Lab Routine 07/27/2009 12:2 4 EDT documented as of this encounter Procedures Procedure Name Priority Date/Time Associated Comments Diagnosis SLIDE REQUEST Routine 07/27/2009 12:24 Results fo r this EDT procedure are i n the results section. COMPLETE BLOOD COUNT Routine 07/27/2009 12:24 Res ults for this AND DIFFERENTIAL EDT procedure a re in the results section. COMPREHENSIVE Routine 07/27/2009 12:24 Results fo r this METABOLIC PANEL (CMP) EDT proced ure are in the results section. documented in this encounter Results SLIDE REQUEST (07/27/2009 12:24 EDT) Pathologist Sig nature Note A smear is filed in the [facility] lab Specimen Performing Organization Address City/State/ZIP Code Phon e Number [facility] [address] [place] [address] SERVICES [facility] [address] [place] [address] COMPREHENSIVE METABOLIC PANEL (07/27/2009 12:24 EDT) Potassium 4.0Comment: 3.6 - 5.2 [facility] Heparinized plasma. mEq/L LAB Sodium 140Comment: 136 - 145 [facility] Heparinized plasma. mEq/L LAB Chloride 104Comment: 96 - 110 [facility] Heparinized plasma. mEq/L LAB CO2 24Comment: 24 - 32 mEq/L [facility] Heparinized plasma. LAB Alkaline 212Comment: 175 - 420 U/L [facility] Phosphatase Heparinized plasma. LAB Bilirubin, Total <0.5Comment: 0.0 - 1.4 [facility] Heparinized plasma. mg/dl LAB AST 46Comment: 23 - 58 U/L [facility] Heparinized plasma. LAB ALT 16Comment: 10 - 35 U/L [facility] Heparinized plasma. LAB Albumin 4.4Comment: 3.0 - 5.5 [facility] Heparinized plasma. g/dl LAB Total Protein 7.0Comment: 6.2 - 8.1 [facility] Heparinized plasma. g/dl LAB Creatinine 0.40Comment: 0.3 - 0.7 [facility] Heparinized plasma. mg/dl LAB GFR, Calculated Age <18 ml/min/1.73m2 [facility] Heparinized plasma. LAB BUN 13Comment: 7 - 18 mg/dl [facility] Heparinized plasma. LAB Calcium 9.0Comment: 8.8 - 11.1 [facility] Heparinized plasma. mg/dl LAB Calculated Calcium 9.0Comment: 8.8 - 11.1 [facility] Heparinized plasma. mg/dl LAB Glucose, Serum 93Comment: 70 - 100 [facility] Heparinized plasma. mg/dl LAB Fasting? No [facility] Specimen Blood specimen (specimen) Performing Organization Address City/State/ZIP Code Phon e Number [facility] [address] [place] [address] SERVICES [facility] [address] [place] [address] HEMAGRAM AND DIFFERENTIAL (07/27/2009 12:24 EDT) Pathologist Sig nature WBC 9.58 4.5 - 13.5 K/cmm [facility] RBC 4.36 4.00 - 6.20 M/cmm [facility] Hemoglobin 13.2 11.5 - 15.5 gm/dl [facility] HCT 37.2 35.0 - 45.0 % [facility] MCV 85 77 - 95 fl [facility] MCH 30.4 pg [facility] MCHC 35.6 gm/dl [facility] PLT 202 156 - 312 K/cmm [facility] RDW-CV 13.2 % [facility] Neutrophils 48.6 % [facility] Lymphocytes 41.4 % [facility] Monocytes 8.4 % [facility] Eosinophils 1.1 % [facility] Basophils 0.5 % [facility] ABS Neutrophils 4.66 K/cmm [facility] ABS Lymphs 3.96 K/cmm [facility] ABS Monocytes 0.80 K/cmm [facility] ABS Eosinophils 0.11 K/cmm [facility] ABS Basophils 0.05 K/cmm [facility] Type of Diff: Automated [facility] Specimen Blood specimen (specimen) Performing Organization Address City/State/ZIP Code Phon e Number [facility] [address] [place] [address] SERVICES [facility] [address] [place] [address] documented in this encounter Visit Diagnoses Not on filedocumented in this encounter Care Teams Change Analyst Relationship Specialty Start Date End Date Erika Chairez MD PCP - General 03/07/09 05/23/10 documented as of this encounter
--- OUTSIDE RECORDS SUMMARY | 2022-05-10 08:30 | XMS_ITS | Encounter Summary ---
:2002 Author Organization [facility] Address [address] [place] [address] Care Team Providers Name Role Phone Erika Chairez MD Primary Care Provider Unavailable Encounter Details Date Type Department Care Team Description 08/29/2009 Hospital Encounter [facility] recruiting operations consultant Hematology & Oncology [address] [place], [place] 111 [facility] [phone] [place], [place] [address] [phone] Social History Tobacco Use Types Packs/Day Years Used Date Never Assessed Sex Assigned at Date Recorded Not on file documented as of this encounter Discharge Disposition Disposition Code Departure Means Destination Home or Self [place] documented in this encounter Plan of Treatment Upcoming Encounters Date Type Specialty Care Team Description 12/18/2022 Ancillary Procedure Cardiology 12/18/2022 Office Visit Cardiology Bg Kelsey MD 111 [facility], Level 1 [place], [place] [address] (Wo rk) documented as of this encounter Procedures Procedure Name Priority Date/Time Associated Comments Diagnosis SLIDE REQUEST Routine 08/29/2009 12:41 Results fo r this EDT procedure are i n the results section. COMPLETE BLOOD COUNT Routine 08/29/2009 12:41 Res ults for this AND DIFFERENTIAL EDT procedure a re in the results section. documented in this encounter Results SLIDE REQUEST (08/29/2009 12:41 EDT) Pathologist Sig nature Note A smear is filed in the [facility] lab Specimen Performing Organization Address City/[facility] Phon e Number [facility] [address] [place] [address] SERVICES [facility] [address] [place] [address] HEMAGRAM AND DIFFERENTIAL (08/29/2009 12:41 EDT) Pathologist Sig nature WBC 9.11 4.5 - 13.5 K/cmm [facility] RBC 4.39 4.00 - 6.20 M/cmm [facility] Hemoglobin 13.5 11.5 - 15.5 gm/dl [facility] HCT 37.6 35.0 - 45.0 % [facility] MCV 86 77 - 95 fl [facility] MCH 30.8 pg [facility] MCHC 35.9 gm/dl [facility] PLT 179 156 - 312 K/cmm [facility] RDW-CV 13.2 % [facility] Neutrophils 46.0 % [facility] Lymphocytes 42.9 % [facility] Monocytes 9.1 % [facility] Eosinophils 1.3 % [facility] Basophils 0.7 % [facility] ABS Neutrophils 4.18 K/cmm [facility] ABS Lymphs 3.91 K/cmm [facility] ABS Monocytes 0.83 K/cmm [facility] ABS Eosinophils 0.12 K/cmm [facility] ABS Basophils 0.07 K/cmm [facility] Type of Diff: Automated [facility] Specimen Blood specimen (specimen) Performing Organization Address City/[facility]/ZIP Code Phon e Number [facility] [address] [place] [address] SERVICES [facility] [address] [place] [address] documented in this encounter Visit Diagnoses Not on filedocumented in this encounter Care Teams Lead Infrastructure Architect Relationship Specialty Start Date End Date Erika Cahirez MD PCP - General 03/07/09 05/23/10 documented as of this encounter
--- OUTSIDE RECORDS SUMMARY | 2022-05-10 08:30 | XMS_ITS | Encounter Summary ---
:2002 Author Organization [facility] Address [address] [place] [address] Care Team Providers Name Role Phone Erika Chairez MD Primary Care Provider Unavailable Encounter Details Date Type Department Care Team Description 04/27/2009 Hospital [facility] Juliet Velas[facility] MD [id number] [place] [phone] Social History Tobacco Use Types Packs/Day Years Used Date Never Assessed Sex Assigned at Date Recorded Not on file documented as of this encounter Discharge Disposition Disposition Code Departure Means Destination Home or Self Fdc documented in this encounter Plan of Treatment Upcoming Encounters Date Type Specialty Care Team Description 12/18/2022 Ancillary Procedure Cardiology 12/18/2022 Office Visit Cardiology Bg Kelsey MD 111 [facility], [facility], Level 1 [place], [place] [address] (Wo rk) documented as of this encounter Procedures Procedure Name Priority Date/Time Associated Comments Diagnosis SLIDE REQUEST Routine 04/27/2009 11:21 Results fo r this EDT procedure are i n the results section. COMPLETE BLOOD COUNT Routine 04/27/2009 11:21 Res ults for this AND DIFFERENTIAL EDT procedure a re in the results section. documented in this encounter Results NOTE: LABORATORY USE ONLY (04/27/2009 11:21 EDT) Pathologist Sig nature Note A smear is filed in the [facility] lab Specimen Performing Organization Address City/State/ZIP Code Phon e Number [facility] [address] [place] [address] SERVICES [facility] [address] [place] [address] HEMAGRAM AND DIFFERENTIAL (04/27/2009 11:21 EDT) WBC 7.27Comment: 4.5 - 13.5 [facility] Capillary specimen K/cmm RBC 4.31Comment: 4.00 - 6.20 [facility] Capillary specimen M/cmm Hemoglobin 13.2Comment: 11.5 - 15.5 [facility] Capillary specimen gm/dl HCT 36.7Comment: 35.0 - 45.0 % [facility] Capillary specimen MCV 85Comment: 77 - 95 fl [facility] Capillary specimen MCH 30.6Comment: pg [facility] Capillary specimen MCHC 35.9Comment: gm/dl [facility] Capillary specimen PLT 174Comment: 156 - 312 [facility] Capillary specimen K/cmm RDW-CV 13.8Comment: % [facility] Capillary specimen Neutrophils 38.2 % [facility] Lymphocytes 49.5 % [facility] Monocytes 9.6 % [facility] Eosinophils 2.2 % [facility] Basophils 0.5 % [facility] ABS Neutrophils 2.78 K/cmm [facility] ABS Lymphs 3.59 K/cmm [facility] ABS Monocytes 0.70 K/cmm [facility] ABS Eosinophils 0.16 K/cmm [facility] ABS Basophils 0.03 K/cmm [facility] Type of Diff: Automated [facility] Specimen Blood specimen (specimen) Performing Organization Address City/State/ZIP Code Phon e Number [facility] [address] [place] [address] SERVICES [facility] [address] [place] [address] documented in this encounter Visit Diagnoses Not on filedocumented in this encounter Care Teams Sheet Metal Operator Relationship Specialty Start Date End Date Erika Chairez MD PCP - General 03/07/09 05/23/10 documented as of this encounter
--- OUTSIDE RECORDS SUMMARY | 2022-05-10 08:30 | XMS_ITS | Encounter Summary ---
:2002 Author Organization [facility] Address [address] [place] [address] Care Team Providers Name Role Phone Erika Chairez MD Primary Care Provider Unavailable Encounter Details Date Type Department Care Team Description 10/26/2009 [facility] H[facility] & Oncology [address] [place], [place] 111 [facility] [address] [place], [place] [address] [phone] Social History Tobacco Use Types Packs/Day Years Used Date Never Assessed Sex Assigned at Date Recorded Not on file documented as of this encounter Discharge Disposition Disposition Code Departure Means Destination Home or Self Detention documented in this encounter Plan of Treatment Upcoming Encounters Date Type Specialty Care Team Description 12/18/2022 Ancillary Procedure Cardiology 12/18/2022 Office Visit Cardiology Bg Kelsey MD 111 [facility] Level 1 [place], [place] [phone] (Wo rk) documented as of this encounter Visit Diagnoses Not on filedocumented in this encounter Care Teams Mobility Developer Relationship Specialty Start Date End Date Erika Chairez MD PCP - General 03/07/09 05/23/10 documented as of this encounter
--- OUTSIDE RECORDS SUMMARY | 2022-05-10 08:30 | XMS_ITS | Encounter Summary ---
:2002 Author Organization [facility] Address [address] [place] [address] Care Team Providers Name Role Phone Sherman King MD Primary Care Provider Encounter Details Date Type Department Care Team Description 06/21/2010 Hospital Encounter [facility] Juliet Velasquez MD 111 [facility] 1000 [place], [place] [phone] [place] [phone] Social History Tobacco Use Types Packs/Day Years Used Date Never Assessed Sex Assigned at Date Recorded Not on file documented as of this encounter Discharge Disposition Disposition Code Departure Means Destination Home or Self Skilled Nursing documented in this encounter Plan of Treatment Upcoming Encounters Date Type Specialty Care Team Description 12/18/2022 Ancillary Procedure Cardiology 12/18/2022 Office Visit Cardiology Bg Kelsey MD 111 [facility], Level 1 [place], [place] [phone] (Wo rk) documented as of this encounter Visit Diagnoses Not on filedocumented in this encounter Care Teams Mixing Machine Attendant Relationship Specialty Start Date End Date Sherman King MD PCP - General 05/24/10 07/01/12 [place] [address] documented as of this encounter
--- OUTSIDE RECORDS SUMMARY | 2022-05-10 08:30 | XMS_ITS | Encounter Summary ---
:2002 Author Organization [facility] Address [address] [place] [address] Care Team Providers Name Role Phone Unavailable Primary Care Provider Unavailable Encounter Details Date Type Department Care Team Description 02/23/2009 Hospital [facility] Velasquez MD [phone] [place] [phone] Social History Tobacco Use Types Packs/Day Years Used Date Never Assessed Sex Assigned at Date Recorded Not on file documented as of this encounter Discharge Disposition Disposition Code Departure Means Destination Auto Discharge documented in this encounter Plan of Treatment Upcoming Encounters Date Type Specialty Care Team Description 12/18/2022 Ancillary Procedure Cardiology 12/18/2022 Office Visit Cardiology Bg Kelsey MD 111 [facility], Level 1 [place], [place] [phone] (Wo rk) documented as of this encounter Visit Diagnoses Not on filedocumented in this encounter
--- OUTSIDE RECORDS SUMMARY | 2022-05-10 08:30 | XMS_ITS | Encounter Summary ---
:2002 Author Organization [facility] Address [address] [place] [address] Care Team Providers Name Role Phone Erika Chairez MD Primary Care Provider Unavailable Encounter Details Date Type Department Care Team Description 09/28/2009 Hospital Encounter [facility] Juliet Velasquez MD 111 [facility] 1000 [place], [place] [phone] [place] [phone] Social History Tobacco Use Types Packs/Day Years [...] Visit Cardiology Bg Kelsey MD 111 [facility], [facility], Level 1 [place], [place] [phone] (Wo rk) documented as of this encounter Procedures Procedure Name Priority Date/Time Associated Comments Diagnosis COMPLETE BLOOD COUNT Routine 09/28/2009 14:36 Res ults for this AND DIFFERENTIAL EST procedure a re in the results section. documented in this encounter Results HEMAGRAM AND DIFFERENTIAL (09/28/2009 14:36 EST) Pathologist [facility] [place] WBC 9.40 4.5 - 13.5 K/cmm [facility] RBC 4.31 4.00 - 6.20 M/cmm [facility] Hemoglobin 13.3 11.5 - 15.5 gm/dl [facility] HCT 37.5 35.0 - 45.0 % [facility] MCV 87 77 - 95 fl [facility] MCH 30.7 pg [facility] MCHC 35.3 gm/dl [facility] PLT 183 156 - 312 K/cmm [facility] RDW-CV 13.3 % [facility] Neutrophils 45.1 % [facility] Lymphocytes 45.2 % [facility] Monocytes 7.7 % [facility] Eosinophils 1.1 % [facility] Basophils 0.9 % [facility] ABS Neutrophils 4.24 K/cmm [facility] ABS Lymphs 4.25 K/cmm [facility] ABS Monocytes 0.72 K/cmm [facility] ABS Eosinophils 0.10 K/cmm [facility] ABS Basophils 0.08 K/cmm [facility] Type of Diff: Automated [facility] Specimen Blood specimen (specimen) Performing Organization Address City/State/ZIP Code Phon e Number [facility] [address] [place] [address] SERVICES [facility] [address] [place] [address] documented in this encounter Visit Diagnoses Not on filedocumented in this encounter Care Teams Cattle Sticker Relationship Specialty Start Date End Date Erika Chairez MD PCP - General 03/07/09 05/23/10 documented as of this encounter
--- OUTSIDE RECORDS SUMMARY | 2022-05-10 08:30 | XMS_ITS | Encounter Summary ---
:[address] [facility] Address [address] [place] [address] Care Team Providers Name Role Phone Sherman King MD Primary Care Provider Encounter Details Date Type Department Care Team Description 07/26/2010 Results Only [facility] Ryan Abel, Pediatric Hematology & Juliet Velasquez MD Oncology - [facility] [address] [place], [place] [phone] Social History Tobacco Use Types Packs/Day Years Used Date Never Assessed Sex Assigned at Date Recorded Not on file documented as of this encounter Plan of Treatment Upcoming Encounters Date Type Specialty Care Team Description 12/18/2022 Ancillary Procedure Cardiology 12/18/2022 Office Visit Cardiology Bg Kelsey MD 111 [facility], Level 1 [place], [place] [phone] (Wo rk) documented as of this encounter Procedures Procedure Name Priority Date/Time Associated Comments Diagnosis SLIDE REQUEST Routine 07/26/2010 14:47 Results fo r this EDT procedure are i n the results section. COMPLETE BLOOD COUNT Routine 07/26/2010 14:47 Res ults for this AND DIFFERENTIAL EDT procedure a re in the results section. documented in this encounter Results SLIDE REQUEST (07/26/2010 14:47 EDT) Pathologist Sig nature Note A smear is filed in the [facility] Specimen Performing Organization Address City/State/ZIP Code Phon e Number [facility] [address] [place] [address] SERVICES [facility] [address] [place] [address] HEMAGRAM AND DIFFERENTIAL (07/26/2010 14:47 EDT) Pathologist Sig nature WBC 9.30 4.5 - 13.5 K/cmm [facility] RBC 4.29 4.00 - 6.20 M/cmm [facility] Hemoglobin 12.8 11.5 - 15.5 gm/dl [facility] HCT 36.6 35.0 - 45.0 % [facility] MCV 85 77 - 95 fl [facility] MCH 29.8 pg [facility] MCHC 34.9 gm/dl [facility] PLT 174 156 - 312 K/cmm [facility] RDW-CV 13.4 % [facility] Neutrophils 48.2 % [facility] Lymphocytes 38.4 % [facility] Monocytes 10.8 % [facility] Eosinophils 2.0 % [facility] Basophils 0.6 % [facility] ABS Neutrophils 4.49 K/cmm [facility] ABS Lymphs 3.57 K/cmm [facility] ABS Monocytes 1.00 K/cmm [facility] ABS Eosinophils 0.19 K/cmm [facility] ABS Basophils 0.05 K/cmm [facility] Type of Diff: Automated [facility] Specimen Blood specimen (specimen) Performing Organization Address City/State/ZIP Code Phon e Number [facility] [address] [place] [address] SERVICES [facility] [address] [place] [address] documented in this encounter Visit Diagnoses Not on filedocumented in this encounter Care Teams Analyst Geochemical Prospecting Relationship Specialty Start Date End Date Sherman King MD PCP - General 05/24/10 07/01/[address] [address] documented as of this encounter
--- OUTSIDE RECORDS SUMMARY | 2022-05-10 08:30 | XMS_ITS | Encounter Summary ---
:2002 Author Organization [facility] Address [address] [place] [address] Care Team Providers Name Role Phone Erika Chairez MD Primary Care Provider Unavailable Encounter Details Date Type Department Care Team Description 11/30/2009 Hospital Encounter [facility] Juliet Velasquez MD 111 [facility] 1000 [place], [place] [phone] [place] [phone] Social History Tobacco Use Types Packs/Day Years Used Date Never Assessed Sex Assigned at Date Recorded Not on file documented as of this encounter Discharge Disposition Disposition Code Departure Means Destination Home or Self Group Home documented in this encounter Progress Notes LUCERNE FARMER, KATY 2 - 03/06/2014 1635 EDT documented in this encounter Plan of Treatment Upcoming Encounters Date Type Specialty Care Team Description 12/18/2022 Ancillary Procedure Cardiology 12/18/2022 Office Visit Cardiology Bg Kelsey MD 111 [facility], Level 1 [place], [place] [phone] (Wo rk) documented as of this encounter Procedures Procedure Name Priority Date/Time Associated Comments Diagnosis SLIDE REQUEST Routine 11/30/2009 13:58 Results fo r this EST procedure are i n the results section. COMPLETE BLOOD COUNT Routine 11/30/2009 13:58 Res ults for this AND DIFFERENTIAL EST procedure a re in the results section. documented in this encounter Results SLIDE REQUEST (11/30/2009 13:58 EST) Pathologist Sig nature Note A smear is filed in the [facility] lab Specimen Performing Organization Address City/[facility]/ZIP Code Phon e Number [facility] [address] [place] [address] SERVICES [facility] [address] [place] [address] HEMAGRAM AND DIFFERENTIAL (11/30/2009 13:58 EST) Pathologist Sig nature WBC 8.81 4.5 - 13.5 K/cmm [facility] RBC 4.53 4.00 - 6.20 M/cmm [facility] Hemoglobin 13.6 11.5 - 15.5 gm/dl [facility] HCT 39.2 35.0 - 45.0 % [facility] MCV 87 77 - 95 fl [facility] MCH 30.1 pg [facility] MCHC 34.7 gm/dl [facility] PLT 179 156 - 312 K/cmm [facility] RDW-CV 13.6 % [facility] Neutrophils 45.3 % [facility] Lymphocytes 46.4 % [facility] Monocytes 6.8 % [facility] Eosinophils 1.2 % [facility] Basophils 0.3 % [facility] ABS Neutrophils 3.99 K/cmm [facility] ABS Lymphs 4.10 K/cmm [facility] ABS Monocytes 0.59 K/cmm [facility] ABS Eosinophils 0.11 K/cmm [facility] ABS Basophils 0.02 K/cmm [facility] Type of Diff: Automated [facility] Specimen Blood specimen (specimen) Performing Organization Address City/State/ZIP Code Phon e Number [facility] [address] [place] [address] SERVICES [facility] [address] [place] [address] documented in this encounter Visit Diagnoses Not on filedocumented in this encounter Care Teams Processing Specialist Relationship Specialty Start Date End Date Erika Chairez MD PCP - General 03/07/09 05/23/10 documented as of this encounter
--- OUTSIDE RECORDS SUMMARY | 2022-05-10 08:30 | XMS_ITS | Encounter Summary ---
:2002 Author Organization [facility] Address [address] [place] [address] Care Team Providers Name Role Phone Sherman King MD Primary Care Provider Erika Chairez MD Primary Care Provider Unavailable Sully Baldwin FIRE CONTROL OFFICER Unavailable Unknown, Provider Primary Care Provider Erika Chairez MD Primary Care Provider Unavailable Unknown, Provider Primary Care Provider Bernard Newman MD Primary Care Provider [phone] Shellie Garza RN Unavailable Unavailable Encounter Details Date Type Department Care Team Description 12/06/2008 Hospital Encounter [facility] Rene MD [address] [phone] (Wo rk) Social History Tobacco Use Types [...] Cardiology Bg Kelsey MD 111 [facility], [facility], Level 1 [place], [place] [address] (Wo rk) documented as of this encounter Procedures Procedure Name Priority Date/Time Associated Comments Diagnosis COMPLETE BLOOD COUNT Routine 12/06/2008 13:15 Res ults for this AND DIFFERENTIAL EST procedure a re in the results section. COMPREHENSIVE Routine 12/06/2008 13:15 Results fo r this METABOLIC PANEL (CMP) EST proced ure are in the results section. documented in this encounter Results (ABNORMAL) HEMAGRAM AND DIFFERENTIAL (12/06/2008 13:15 EST) WBC 2.82 (L) 4.5 - 13.5 [facility] K/cmm RBC 2.87 (L) 4.00 - 6.20 [facility] M/cmm Hemoglobin 9.3 (L) 11.5 - 15.5 [facility] gm/dl HCT 25.4 (L) 35.0 - 45.0 % [facility] MCV 89 77 - 95 fl [facility] MCH 32.3 pg [facility] MCHC 36.4 gm/dl [facility] PLT 154 (L) 156 - 312 [facility] K/cmm RDW-CV 22.6 % [facility] Neutrophils 45.0 % [facility] Bands 2.0 % [facility] Lymphocytes 32.0 % [facility] Monocytes 20.0 % [facility] Basophils 1.0 % [facility] Nucleated RBC's 1 /100 WBC'S [facility] ABS Neutrophils 1.27 K/cmm [facility] ABS Bands 0.06 K/cmm [facility] ABS Lymphs 0.90 K/cmm [facility] ABS Monocytes 0.56 K/cmm [facility] ABS Basophils 0.03 K/cmm [facility] RBC Morphology 1+ Anisocytosis [facility] 1+ Poikilocytosis 1+ Polychromasia Type of Diff: Manual [facility] Specimen Performing Organization Address City/[facility]/ZIP Code Phon e Number [facility] [address] [place] [address] SERVICES [facility] [address] [place] [address] (ABNORMAL) COMPREHENSIVE METABOLIC PANEL (12/06/2008 13:15 EST) Pathologist [facility] nature Potassium 4.4 3.6 - 5.2 mEq/L [facility] Sodium 141 136 - 145 mEq/L [facility] Chloride 108 96 - 110 mEq/L [facility] CO2 25 24 - 32 mEq/L [facility] Alkaline Phosphatase 204 150 - 350 U/L [facility] Bilirubin, Total <0.5 0.0 - 1.4 mg/dl [facility] AST 43 23 - 58 U/L [facility] ALT 37 (H) 10 - 25 U/L [facility] Albumin 4.2 3.5 - 5.2 g/dl [facility] Total Protein 6.2 5.9 - 7.8 g/dl [facility] Creatinine 0.42 0.1 - 0.7 mg/dl [facility] GFR, Calculated Age <18 ml/min/1.73m2 [facility] BUN 15 7 - 18 mg/dl [facility] Calcium 8.7 (L) 8.8 - 11.1 mg/dl [facility] Calculated Calcium 8.9 8.8 - 11.1 mg/dl [facility] Glucose, Serum 80 70 - 100 mg/dl [facility] Fasting? No [facility] Specimen Performing Organization Address City/[facility]/ZIP Code Phon e Number [facility] [address] [place] [address] SERVICES [facility] [address] [place] [address] documented in this encounter Visit Diagnoses Not on filedocumented in this encounter Care Teams Wound Specialist Relationship Specialty Start Date End Date Sherman King MD PCP - General 05/24/10 07/01/12 [address] [place] [phone] Erika Chairez MD PCP - General 03/07/09 05/23/10 Unknown, Provider, PCP - General 07/02/12 07/06/12 Erika Chairez MD PCP - General 07/07/12 05/05/13 Unknown, Provider, PCP - General 05/06/13 10/20/13 Bernard Newman MD PCP - General 10/21/[address] [place] [address] [place] [address] Sully Baldwin FIRE CONTROL OFFICER Nurse Practitioner 09/05/10 [address] [place] [phone] Shellie Garza, JUAQUIN Registered Nurse 03/13/21 [address] [place] [address] documented as of this encounter
--- OUTSIDE RECORDS SUMMARY | 2022-05-10 08:30 | XMS_ITS | Encounter Summary ---
:2002 Author Organization [facility] Address [address] [place] [address] Care Team Providers Name Role Phone Erika Chairez MD Primary Care Provider Unavailable Encounter Details Date Type Department Care Team Description 05/25/2009 Hospital En[facility] PAINT STOCK CLERK 111 [facility] [address] [place], [place] [phone] [place] [phone] (Wo rk) Social History Tobacco Use Types Packs/Day Years Used Date Never Assessed Sex Assigned at Date Recorded Not on file documented as of this encounter Discharge Disposition Disposition Code Departure Means Destination Home or Self [facility] documented in this encounter Plan of Treatment Upcoming Encounters Date Type Specialty Care Team Description 12/18/2022 Ancillary Procedure Cardiology 12/18/2022 Office Visit Cardiology Bg Kelsey MD 111 [facility] Level 1 [place], [place] [phone] (Wo rk) documented as of this encounter Procedures Procedure Name Priority Date/Time Associated Comments Diagnosis SLIDE REQUEST Routine 05/25/2009 12:54 Results fo r this EDT procedure are i n the results section. COMPLETE BLOOD COUNT Routine 05/25/2009 12:54 Res ults for this AND DIFFERENTIAL EDT procedure a re in the results section. documented in this encounter Results SLIDE REQUEST (05/25/2009 12:54 EDT) Pathologist Sig nature Note A smear is filed in the [facility] lab Specimen Performing Organization Address City/[facility]/ZIP [facility] Phon e Number [facility] [address] [place] [address] SERVICES [facility] [address] [place] [address] HEMAGRAM AND DIFFERENTIAL (05/25/2009 12:54 EDT) Pathologist Sig nature WBC 9.14 4.5 - 13.5 K/cmm [facility] RBC 4.44 4.00 - 6.20 M/cmm [facility] Hemoglobin 13.8 11.5 - 15.5 gm/dl [facility] HCT 38.0 35.0 - 45.0 % [facility] MCV 86 77 - 95 fl [facility] MCH 31.0 pg [facility] MCHC 36.2 gm/dl [facility] PLT 192 156 - 312 K/cmm [facility] RDW-CV 12.8 % [facility] Neutrophils 38.5 % [facility] Lymphocytes 50.4 % [facility] Monocytes 8.5 % [facility] Eosinophils 2.1 % [facility] Basophils 0.5 % [facility] ABS Neutrophils 3.52 K/cmm [facility] ABS Lymphs 4.61 K/cmm [facility] ABS Monocytes 0.78 K/cmm [facility] ABS Eosinophils 0.19 K/cmm [facility] ABS Basophils 0.04 K/cmm [facility] Type of Diff: Automated [facility] Specimen Blood specimen (specimen) Performing Organization Address City/[facility]/ZIP Code Phon e Number [facility] [address] [place] [address] SERVICES [facility] [address] [place] [address] documented in this encounter Visit Diagnoses Not on filedocumented in this encounter Care Teams Continuity Coordinator Relationship Specialty Start Date End Date Erika Chairez MD PCP - General 03/07/09 05/23/10 documented as of this encounter
--- OUTSIDE RECORDS SUMMARY | 2022-05-10 08:30 | XMS_ITS | Encounter Summary ---
:2002 Author Organization [facility] Address [address] [place] [address] Care Team Providers Name Role Phone Erika Chairez MD Primary Care Provider Unavailable Encounter Details Date Type Department Care Team Description 06/29/2009 [facility] Juliet Velasquez MD [phone] [place] [phone] Social History Tobacco Use Types Packs/Day Years [...] Cardiology Bg Kelsey MD 111 [facility], Level 1 [place], [place] [phone] (Wo rk) documented as of this encounter Procedures Procedure Name Priority Date/Time Associated Comments Diagnosis SLIDE REQUEST Routine 06/29/2009 12:46 Results fo r this EDT procedure are i n the results section. COMPLETE BLOOD COUNT Routine 06/29/2009 12:46 Res ults for this AND DIFFERENTIAL EDT procedure a re in the results section. documented in this encounter Results SLIDE REQUEST (06/29/2009 12:46 EDT) Pathologist Sig nature Note A smear is filed in the [facility] lab Specimen Performing Organization Address City/State/ZIP Code Phon e Number [facility] [address] [place] [address] SERVICES [facility] [address] [place] [address] HEMAGRAM AND DIFFERENTIAL (06/29/2009 12:46 EDT) Pathologist Sig nature WBC 7.60 4.5 - 13.5 K/cmm [facility] RBC 4.40 4.00 - 6.20 M/cmm [facility] Hemoglobin 13.4 11.5 - 15.5 gm/dl [facility] HCT 38.2 35.0 - 45.0 % [facility] MCV 87 77 - 95 fl [facility] MCH 30.4 pg [facility] MCHC 35.1 gm/dl [facility] PLT 176 156 - 312 K/cmm [facility] RDW-CV 12.8 % [facility] Neutrophils 41.4 % [facility] Lymphocytes 48.4 % [facility] Monocytes 8.3 % [facility] Eosinophils 1.1 % [facility] Basophils 0.8 % [facility] ABS Neutrophils 3.14 K/cmm [facility] ABS Lymphs 3.68 K/cmm [facility] ABS Monocytes 0.63 K/cmm [facility] ABS Eosinophils 0.08 K/cmm [facility] ABS Basophils 0.06 K/cmm [facility] Type of Diff: Automated [facility] Specimen Blood specimen (specimen) Performing Organization Address City/State/ZIP Code Phon e Number [facility] [address] [place] [address] SERVICES [facility] [address] [place] [address] documented in this encounter Visit Diagnoses Not on filedocumented in this encounter Care Teams Machine Riveter Relationship Specialty Start Date End Date Erika Chairez MD PCP - General 03/07/09 05/23/10 documented as of this encounter
--- OUTSIDE RECORDS SUMMARY | 2022-05-10 08:30 | XMS_ITS | Encounter Summary ---
:2002 Author Organization [facility] Address [address] [place] [address] Care Team Providers Name Role Phone Unavailable Primary Care Provider Unavailable Encounter Details Date Type Department Care Team Description 11/24/2008 Hospital Encounter [facility] Ryan Abel , Perioperative Services- Juliet Velasquez MD [facility] 1000 [facility] 111 [place], [place] [phone] Social History Tobacco Use Types Packs/Day Years Used Date Never Assessed Sex Assigned at Date Recorded Not on file documented as of this encounter Discharge Disposition Disposition Code Departure Means Destination Home or Self Care documented in this encounter Plan of Treatment Upcoming Encounters Date Type Specialty Care Team Description 12/18/2022 Ancillary Procedure Cardiology 12/18/2022 Office Visit Cardiology Bg Kelsey MD 111 [facility], Level 1 [place], [place] [phone] (Wo rk) documented as of this encounter Procedures Procedure Name Priority Date/Time Associated Comments Diagnosis MISCELLANEOUS TEST, Routine 11/24/2008 15:14 Resu lts for this NON [place] EST procedure are i n the results section. documented in this encounter Results MISCELLANEOUS TEST (11/24/2008 15:14 EST) Test Name SPECIAL STUDIES FOR COG AML [facility] STUDY # [id number] ??[id number] ? Result Results to be sent [facility] directly to physician by Performing Laboratory Date Sample 11/24/2008 [facility] Shipped Specimen Performing Organization Address City/State/ZIP Code Phon e Number [facility] [address] [place] [address] SERVICES [facility] [address] [place] [address] documented in this encounter Visit Diagnoses Not on filedocumented in this encounter
--- OUTSIDE RECORDS SUMMARY | 2022-05-10 08:30 | XMS_ITS | Encounter Summary ---
:2000 Author Organization [facility] Address [address] [place] [address] Care Team Providers Name Role Phone Erika Chairez MD Primary Care Provider Unavailable Encounter Details Date Type Department Care Team Description 11/30/2009 Hospital Encounter [facility] Ryan morales, Pediatric Hematology & Juliet Velasquez MD Oncology - [facility] [address] [place], [place] [phone] Social History Tobacco Use Types Packs/Day Years Used Date Never Assessed Sex Assigned at Date Recorded Not on file documented as of this encounter Discharge Disposition Disposition Code Departure Means Destination Home or Self Shelter documented in this encounter Plan of Treatment Upcoming Encounters Date Type Specialty Care Team Description 12/18/2022 Ancillary Procedure Cardiology 12/18/2022 Office Visit Cardiology Bg Kelsey MD [address] [facility], [facility], [facility] [address] [place], [place] [phone] (Wo rk) documented as of this encounter Visit Diagnoses Not on filedocumented in this encounter Care Teams Equipment Sterilizer Relationship Specialty Start Date End Date Erika Chairez MD PCP - General 03/07/09 05/23/10 documented as of this encounter
--- OUTSIDE RECORDS SUMMARY | 2022-05-10 08:30 | XMS_ITS | Encounter Summary ---
:2000 Author Organization [facility] Address [address] [place] [address] Care Team Providers Name Role Phone Erika Dunaway MD Primary Care Provider Unavailable Encounter Details Date Type Department Care Team Description 03/09/2009 Hospital Encounter [facility] Juliet Velasquez MD 111 [facility] [address] [place], [place] [id number] [place] [phone] Social History Tobacco Use Types Packs/Day Years Used Date Never Assessed Sex Assigned at Date Recorded Not on file documented as of this encounter Discharge Disposition Disposition Code Departure Means Destination Home documented in this encounter Plan of Treatment Upcoming Encounters Date Type Specialty Care Team Description 12/18/2022 Ancillary Procedure Cardiology 12/18/2022 Office Visit Cardiology Bg Kelsey MD 111 [facility], [facility], Level [address] [place], [place] [phone] (Wo rk) documented as of this encounter Procedures Procedure Name Priority Date/Time Associated Comments Diagnosis ECHOCARDIOGRAM 04/06/2009 8:55 Results fo r this EDT procedure are i n the results section. COMPLETE BLOOD COUNT Routine 03/09/2009 15:00 Res ults for this AND DIFFERENTIAL EDT procedure a re in the results section. documented in this encounter Results ECHOCARDIOGRAM (04/06/2009 8:55 EDT) Specimen Narrative CARDIOLOGY - 04/06/2009 18:52 EDT Patient Name: DIANA ROSS Chart Number: [id number] Site Location: Date of Appt: March, 8: 55 AM Pediatric Echocardiogram Report Demographics and Visit Data: : 2000. ??Age: 8y/11m/3d. ??BSA (m 2): 1.04. ??Height (cm): 130.7. ?? Weight (kg): 30.1. ??Patient location: [facility]. ?? Height Centile: 96.82. ??Weight Centile: 98.02. ??Person requesting test: ERIKA DUNAWAY MD. ?? Manager Workers Compensation: Elena Sanders. ??Reason f or test: color pulsed doppler. ?? 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 ??Procedure Description: ECHOCARDIOGRAM. ?? Summary: Normal atrioventricular and ventriculoar terial concordance. Normal cardiac anatomy and performance. Left ventricular size and performance me asurements appear improved from earlier this year, and back to baseline of 2007. Leukemia, s/p adriamycin therapy. Atrial Situs: Solitus Ventricular Situs: D - Looped Arterial Situs: Solitus Findings: ?? Veins and Atria: ?? >> Normal Left Atrium >> Normal Right Atrium >> Intact Atrial Septum ?? A-V Canal: ?? >> Tricuspid regurgitation, trivial -of low velocity. ?? >> Normal Tricuspid Valve >> Normal Mitral Valve ?? Ventricles: ?? >> Normal Right Ventricle >> Normal Left Ventricle -with satisfactory biventricular perform ance, and no outflow obstruction or abnormal hypertrophy. ?? >> Intact Ventricular Septum ?? Conotruncus: ?? >> Pulmonary regurgitation, trivial -of low velocity. ?? >> Normal Pulmonary Valve >> Normal Aortic Valve -trileaflet. ? Great Arteries: ?? >> Patent ductus arteriosus, ruled out >> Normal Proximal Coronary Arteries ?? Other: ?? >> S/p adriamycin therapy >> Leukemia ?? Measures: ?? Systemic Arterial Function: ?? Name ? Value ?Units ?Z-Score ?Min ?Max ?? Systolic BP ? 87 ? mmH g ? -1.19 ? 79.3 ?118.06 ?? Diastolic BP ? 56 ? mmH g ? 0.42 ?34.18 ?? 70.08 ?? Pulse Pressure ? 31.00 ?mmHg ? Mean BP ? 66.3 ? mmHg ? -0.86 ? 56.16 ?? 92.19 ? 2D: ?? Name ? Value ?Units ?? LV Diastolic Volume Index (Bullet) ? 86.09 ?mL/m 2 ? M-Mode: ?? Name ? Value ?Units ?Z-Score ?Min ?Max ?? LV Diastolic Septal Thickness ? 0.71 ? cm ? -0.27 ? 0.54 ?1.02 ?? LV Diastolic Dimension ? 4.29 ? cm ? 1.09 ?3.34 ?4.61 ?? LV Diastolic Wall Thickness ? 0.67 ? cm ? -0.48 ? 0.55 ?0.92 ?? LV Systolic Dimension ? 2.71 ? cm ? 0.57 ?2.08 ?3.13 ?? LV Fractional Shortening ? 36.83 ?% ?0.85 ?29.9 ?39.57 ? LV Systolic Function: ?? Name ? Value ?Units ?Z-Score ?Min ?Max ?? LV Diastolic Volume (Bullet) ? 89.53 ?mL ? 1.86 ?43.47 ?? 91.16 ?? LV Systolic Volume (Bullet) ? 37.03 ?mL ? 2.15 ?13.16 ?? 35.83 ?? LV Ejection Fraction (Bullet) ? 58.64 ?% ?-0.76 ? 49.85 ?? 78.46 ?? 2D LV Mass ? 80.51 ?g ?2.43 ?32.9 ?74.76 ?? 2D LV Volume Index ? 86.09 ? 2D LV Mass Index ? 77.42 ?g/m 2 ? Endocardial FS ? 36.83 ?% ?0.85 ?29.9 ?39.57 ?? FS Vs Stress ? 36.83 ?% ? Cardiac Geometry: ?? Name ? Value ?Units ?Z-Score ?Min ?Max ?? M-Mode LV Mass ? 86.57 ?g ?0.32 ?54.72 ?? 120.43 ?? M-Mode LV Mass Index ? 83.24 ?g/m 2 ? LV Diastolic Long Dermott Epicardial Diamet er ? 7.75 ? cm ? LV Diastolic Epicardial Cross-Sectional Area ? 26.33 ?cm 2 ? LV Systolic Long Dermott Diameter ? 5.12 ? cm ? LV Systolic Cross-sectional Area ? 8.68 ? cm 2 ? LV Diastolic Long Dermott Diameter ? 6.77 ? cm ? 1.4 ? 5.16 ?7.04 ?? LV Diastolic Cross-sectional Area ? 15.87 ?cm 2 ? LV Midwall Diastolic Dimension ? 4.96 ? cm ? M-Mode LV Mass / Height ? 66.24 ?g/m ? M-Mode LV Mass / Height 2.7 ? 42.02 ?g/m ?19.4 ?38.6 ? Aorta: ?? Name ? Value ?Units ?Z-Score ?Min ?Max ?? Ao Annulus Diameter ? 1.58 ? cm ? 0.21 ?1.26 ?1.83 ?? Ao Root Diameter ? 2.04 ? cm ? 0.03 ?1.6 ? 2.47 ?? AV Area (using Diameter) ? 1.96 ? cm 2 ? Sinotubular Junction Diameter ? 1.79 ? cm ? 0.33 ?1.37 ?2.09 ?? Ascending Ao Diameter ? 1.74 ? cm ? -0.11 ? 1.39 ?2.13 ? Analysis Aortic Valve Doppler: ?? Name ? Value ?Units ?? AV Area (using Diameter) ? 1.96 ? cm 2 ? Analysis M-Mode Wall Stress: ?? Name ? Value ?Units ?? LV Maximum Dimension ? 4.29 ? cm ? Kelford's Name: ALY LEAL MD Date/time of reading: Apr 06 2009 - 6:52:07 PM Report created at 6:52:14 PM on March Procedure Note 04/06/2009 Patient Name: DIANA ROSS Chart Number: [id number] Site Location: Date of Appt: March, 8: 55 AM Pediatric Echocardiogram Report Demographics and Visit Data: : 2000. Age: 8y/11m/3d. BSA (m 2 ): 1.04. Height (cm): 130.7. Weight (kg): 30.1. Patient location: [facility]. Height Centile: 96.82. Weight Centile: 9 8.02. Person requesting test: ERIKA DUNAWAY MD Manager Workers Compensation: Elena Sanders. Reason for test: color pulsed doppler. 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 Procedure Description: ECHOCARDIOGRAM. Summary: Normal atrioventricular and ventriculoar terial concordance. Normal cardiac anatomy and performance. Left ventricular size and performance me asurements appear improved from earlier this year, and back to baseline of 2007. Leukemia, s/p adriamycin therapy. Atrial Situs: Solitus Ventricular Situs: D - Looped Arterial Situs: Solitus Findings: Veins and Atria: >> Normal Left Atrium >> Normal Right Atrium >> Intact Atrial Septum A-V Canal: >> Tricuspid regurgitation, trivial -of low velocity. >> Normal Tricuspid Valve >> Normal Mitral Valve Ventricles: >> Normal Right Ventricle >> Normal Left Ventricle -with satisfactory biventricular perform ance, and no outflow obstruction or abnormal hypertrophy. >> Intact Ventricular Septum Conotruncus: >> Pulmonary regurgitation, trivial -of low velocity. >> Normal Pulmonary Valve >> Normal Aortic Valve -trileaflet. Great Arteries: >> Patent ductus arteriosus, ruled out >> Normal Proximal Coronary Arteries Other: >> S/p adriamycin therapy >> Leukemia Measures: Systemic Arterial Function: Name Value Units Z-Score Min Max Systolic BP 87 mmHg -1.19 79.3 118.06 Diastolic BP 56 mmHg 0.42 34.18 70.08 Pulse Pressure 31.00 mmHg Mean BP 66.3 mmHg -0.86 56.16 92.19 2D: Name Value Units LV Diastolic Volume Index (Bullet) 86.09 mL/m 2 M-Mode: Name Value Units Z-Score Min Max LV Diastolic Septal Thickness 0.71 cm -0.27 0.54 1.02 LV Diastolic Dimension 4.29 cm 1.09 3.34 4.61 LV Diastolic Wall Thickness 0.67 cm -0.48 0.55 0.92 LV Systolic Dimension 2.71 cm 0.57 2.08 3.13 LV Fractional Shortening 36.83 % 0.85 29.9 39.57 LV Systolic Function: Name Value Units Z-Score Min Max LV Diastolic Volume (Bullet) 89.53 mL 1.86 43.47 91.16 LV Systolic Volume (Bullet) 37.03 mL 2.15 13.16 35.83 LV Ejection Fraction (Bullet) 58.64 % -0.76 49.85 78.46 2D LV Mass 80.51 g 2.43 32.9 74.76 2D LV Volume Index 86.09 2D LV Mass Index 77.42 g/m 2 Endocardial FS 36.83 % 0.85 29.9 39.57 FS Vs Stress 36.83 % Cardiac Geometry: Name Value Units Z-Score Min Max M-Mode LV Mass 86.57 g 0.32 54.72 120.43 M-Mode LV Mass Index 83.24 g/m 2 LV Diastolic Long Dermott Epicardial Diamet er 7.75 cm LV Diastolic Epicardial Cross-Sectional Area 26.33 cm 2 LV Systolic Long Dermott Diameter 5.12 cm LV Systolic Cross-sectional Area 8.68 cm 2 LV Diastolic Long Dermott Diameter 6.77 cm 1.4 5.16 7.04 LV Diastolic Cross-sectional Area 15.87 cm 2 LV Midwall Diastolic Dimension 4.96 cm M-Mode LV Mass / Height 66.24 g/m M-Mode LV Mass / Height 2.7 42.02 g/m 19.4 38.6 Aorta: Name Value Units Z-Score Min Max Ao Annulus Diameter 1.58 cm 0.21 1.26 1.83 Ao Root Diameter 2.04 cm 0.03 1.6 2.47 AV Area (using Diameter) 1.96 cm 2 Sinotubular Junction Diameter 1.79 cm 0.33 1.37 2.09 Ascending Ao Diameter 1.74 cm -0.11 1.39 2.13 Analysis Aortic Valve Doppler: Name Value Units AV Area (using Diameter) 1.96 cm 2 Analysis M-Mode Wall Stress: Name Value Units LV Maximum Dimension 4.29 cm Kelford's Name: ALY LEAL MD Date/time of reading: Apr 06 2009 - 6:52:07 PM Report created at 6:52:14 PM on March Performing Organization Address City/State/ZIP Code Phon e Number [facility] CARDIOLOGY HEMAGRAM AND DIFFERENTIAL (03/09/2009 15:00 EDT) Pathologist Sig nature WBC 7.42 4.5 - 13.5 K/cmm [facility] RBC 4.32 4.00 - 6.20 M/cmm [facility] Hemoglobin 13.2 11.5 - 15.5 gm/dl [facility] HCT 36.8 35.0 - 45.0 % [facility] MCV 85 77 - 95 fl [facility] MCH 30.5 pg [facility] MCHC 35.9 gm/dl [facility] PLT 185 156 - 312 K/cmm [facility] RDW-CV 13.2 % [facility] Neutrophils 48.3 % [facility] Lymphocytes 39.2 % [facility] Monocytes 8.9 % [facility] Eosinophils 2.0 % [facility] Basophils 1.6 % [facility] ABS Neutrophils 3.58 K/cmm [facility] ABS Lymphs 2.91 K/cmm [facility] ABS Monocytes 0.66 K/cmm [facility] ABS Eosinophils 0.15 K/cmm [facility] ABS Basophils 0.12 K/cmm [facility] Type of Diff: Automated [facility] Specimen Blood specimen (specimen) Performing Organization Address City/State/ZIP Code Phon e Number [facility] [address] [place] [address] SERVICES [facility] [address] [place] [address] documented in this encounter Visit Diagnoses Not on filedocumented in this encounter Care Teams Surgical Assistant Certified Relationship Specialty Start Date End Date Erika Dunaway MD PCP - General 03/07/09 05/23/10 documented as of this encounter
--- OUTSIDE RECORDS SUMMARY | 2022-05-10 08:30 | XMS_ITS | Encounter Summary ---
:2000 Author Organization [facility] Address [address] [place] [address] Care Team Providers Name Role Phone Sherman King MD Primary Care Provider Encounter Details Date Type Department Care Team Description 05/24/2010 Hospital En[facility] & Oncology [address] [place], [place] 111 [facility] [address] [place], [place] [id number] [phone] Social History Tobacco Use Types Packs/Day Years Used Date Never Assessed Sex Assigned at Date Recorded Not on file documented as of this encounter Discharge Disposition Disposition Code Departure Means Destination Home or Self Long-Term documented in this encounter Progress Notes Brandi Kam NP - 05/24/2010 0000 EDT PROGRESS/FOLLOWUP NOTE - 05/24/2010 DIVISION OF PEDIATRIC HEMATOLOGY/ONCOLOGY REASON FOR VISIT: Followup for acute myeloid leukemia. HISTORY OF PRESENT [...] He completed therapy in 04/2008 and has remained disease-free since. Since his last visit with us 2 months ago, Jaswinder and his parents report that his overall health has been excellent. He has had no significant illnesses, injuries, accidents or hospitalizations. He did have an episode of strep throat that was treated with antibiotics and resolved, that was approximately 2 months ago. Aside from this, Jaswinder did have neurocognitive testing performed by the school atthe end of the school year due to his troubles with math processing. He was found to have some deficits in this area and an IEP plan was developed will be implemented this fall. Jaswinder's parents report that the school was very helpful with rapidly having this testing performed and developing interventions. Aside from this, Jaswinder has done well in school otherwise and is playing sports this year andis enjoying this. His plans for the summer has been playing outside and going camping with his family. Her at his visit today, his parents do not have any specific complaints or concerns. His mom wouldlike to know the report of his echocardiogram performed 2 months ago. Jaswinder is accompanied by bothof his parents today who contribute to his history. REVIEW OF SYSTEMS: As noted above, Jaswinder has not had any significant illnesses. He has had no reported fevers. He has had no complaints of rashes, lumps, bumps, bruising or petechiae. He has had no complaints of shortness of breath or chest palpitations. He has had no complaints of headaches or vision changes. He has had no complaints of pain, no complaints of nausea, vomiting, diarrhea or constipation, aside from his episode of strep throat, he has not had any ENT complaints. FAMILY AND SOCIAL HISTORY: There have been no significant changes in his family or social history since last visit in 03/2010. He continues to live with his parents in [place], [place] andwill be entering the second grade this fall. MEDICATIONS: Multivitamin 1 p.o. daily. OBJECTIVE: Jaswinder is awake and alert, in no acute distress. His vital signs reveal a blood pressureof 103/64, his pulse is 90. His weight today is 36.25 kg with a height of 139.8 cm. ENT exam revealsanicteric sclerae. His conjunctivae is mildly injected. His extraocular movements are intact. His tympanic membranes are lucent bilaterally. His mucous membranes are moist without lesions or ulcers. Oropharynx is clear. His chest shows a small scar from his prior CVL. His lung exam shows respirations even and unlabored. His lung rasmussen are clear and equal throughout. His cardiac exam shows normal peripheral perfusion. He has a regular S1, S2, without murmur, rub, or gallop. His abdomen is soft and no ntender, no hepatosplenomegaly noted. His male exam shows circumcised male with bilateral descended testes, soft with no masses noted, Red stage I. No lymphadenopathy palpated in his neck and supraclavicular regions. His skin exam is grossly intact. No rashes, bruising or petechiae. He does havea laceration to his left knee without signs of infection. Neurologic exam shows cranial nerves II through XII grossly intact. His musculoskeletal exam shows good range of motion of all joints and no pain. DIAGNOSTIC DATA: CBC with differential is drawn today and shows WBC 10.37, Hgb 13.7, Plts 210 K and normal differential. IMPRESSION: Jaswinder is an 10-year-old young boy with a history of AML, now 17 months from completion of his intensive chemotherapy in continued remission. PLAN: 1. AML: Jaswinder had a CBC with differential drawn today and is normal . He has no signs or symptoms suggestive of disease recurrence. We will continue to check his CBCs on every 2 month basis for this second year out from therapy completion. 2. Potential long-term effects secondary to chemotherapy received. I reviewed with Geronimo and his parents that some of the potential long-term effects which can include, but are not limited to: a. Cardiomyopathy secondary to anthracycline exposure. Jaswinder received 492 mg/m2 of anthracyclines as part of his therapy. This places him at higher end of dosing for these drugs and therefore should have echocardiograms& EKGs performed on a yearly basis. His last echocardiogram was done in 03/2010 and showed normal LV function and normal heart anatomy. An EKG should also be performed on an annual basis as there is a risk of arrhythmia as well. b. 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 Jaswinder has exhibited some difficulties with math processing and has had neurocognitive testing performed by the school, and deficits were found in this area. Therefore an IEP plan was developed by his school will be implemented this fall. I r eviewed that while it will never be confirmed whether or not chemotherapy played a role in causing this deficit, having the evaluation done and the interventions put in place is what is of importance. I provided for his mother, as well as reference for the school, the Guidelines for Identification, Advocacy for and Interventions in Neurocognitive Problems in Survivors of Childhood Cancer as publishedby the [employer] in the Journal The Archives of Pediatric And Adolescent Medicine in06/2007, as this is a good reference for understanding neurocognitive problems in the childhood cancer survivor. We will continue to monitor his progress with his IEP plan in place. c. 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 A complete metabolic panel would be due to be drawn at his next visit this fall and we will repeat those annually. d. Secondary malignancy. There is the small risk for secondary leukemias related to etoposide exposure. CBC with differential is drawn today and is normal. 3. Health maintenance. Jaswinder should continue to have yearly well-child visits with his primary care provider. I did discuss with his parents today that we will be sending out recommendations within the next couple of months to parents and primary care providers regarding our new recommendations for re-boostering childhood immunizations in children who have completed chemotherapy greater than 6 months. A copy of this letter and will be sent to his parents and his primary care provider in the upcoming weeks. Jaswinder will return to our clinic in 2 months for repeat history, physical, laboratory evaluation and they are aware to call with any questions or concerns in the interim. Electronically Signed by Brandi Kam NP 05/29/2010 12:17 Brandi Kam NP - Brandi Kam NP A - [facility] Job ID: SM Doc ID: [id number] Ext Doc ID: [id number] cc: Erika Chairez MD documented in this encounter Plan of Treatment Upcoming Encounters Date Type Specialty Care Team Description 12/18/2022 Ancillary Procedure Cardiology 12/18/2022 Office Visit Cardiology Bg Kelsey MD [address] [place] [address], [facility], [facility] [address] [place] [phone] (Wo rk) documented as of this encounter Procedures Procedure Name Priority Date/Time Associated Comments Diagnosis COMPLETE BLOOD COUNT Routine 05/24/2010 15:00 Res ults for this AND DIFFERENTIAL EDT procedure a re in the results section. documented in this encounter Results HEMAGRAM AND DIFFERENTIAL (05/24/2010 15:00 EDT) Pathologist Sig nature WBC 10.37 4.5 - 13.5 K/cmm [facility] RBC 4.53 4.00 - 6.20 M/cmm [facility] Hemoglobin 13.7 11.5 - 15.5 gm/dl [facility] HCT 38.5 35.0 - 45.0 % [facility] MCV 85 77 - 95 fl [facility] MCH 30.3 pg [facility] MCHC 35.6 gm/dl [facility] PLT 210 156 - 312 K/cmm [facility] RDW-CV 13.7 % [facility] Neutrophils 48.3 % [facility] Lymphocytes 43.5 % [facility] Monocytes 7.1 % [facility] Eosinophils 0.8 % [facility] Basophils 0.3 % [facility] ABS Neutrophils 5.01 K/cmm [facility] ABS Lymphs 4.51 K/cmm [facility] ABS Monocytes 0.73 K/cmm [facility] ABS Eosinophils 0.09 K/cmm [facility] ABS Basophils 0.04 K/cmm [facility] Type of Diff: Automated [facility] Specimen Blood specimen (specimen) Performing Organization Address City/State/ZIP Code Phon e Number [facility] [address] [place] [address] SERVICES [facility] [address] [place] [address] documented in this encounter Visit Diagnoses Not on filedocumented in this encounter Care Teams Sueding And Buffing 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
--- OUTSIDE RECORDS SUMMARY | 2022-05-10 08:31 | XMS_ITS | Encounter Summary ---
:[address] [facility] Address [address] [place] [address] Care Team Providers Name Role Phone Unavailable Primary Care Provider Unavailable Encounter Details Date Type Department Care Team Description 10/13/2008 Hospital Encounter [facility] - Dudley Rene MD [address] [phone] (Wo rk) Social History Tobacco Use Types Packs/Day Years Used Date Never Assessed Sex Assigned at Date Recorded Not on file documented as of this encounter Discharge Disposition Disposition Code Departure Means Destination Admitted to this Hospital documented in this encounter Plan of Treatment Upcoming Encounters Date Type Specialty Care Team Description 12/18/2022 Ancillary Procedure Cardiology 12/18/2022 Office Visit Cardiology Bg Kelsey MD [address] [facility], [address] [place], [place] [phone] (Wo rk) documented as of this encounter Procedures Procedure Name Priority Date/Time Associated Comments Diagnosis COMPLETE BLOOD COUNT Routine 11/17/2008 10:59 Res ults for this AND DIFFERENTIAL EST procedure a re in the results section. documented in this encounter Results (ABNORMAL) HEMAGRAM AND DIFFERENTIAL (11/17/2008 10:59 EST) WBC 0.74 (LL) 4.5 - 13.5 [facility] K/cmm RBC 3.12 (L) 4.00 - 6.20 [facility] M/cmm Hemoglobin Not Available 11.5 - 15.5 [facility] gm/dl HCT 25.1 (L) 35.0 - 45.0 % [facility] MCV 81 77 - 95 fl [facility] MCH Not calculated pg [facility] MCHC Not calculated gm/dl [facility] PLT 27 (L) 156 - 312 K/cmm [facility] RDW-CV 12.9 % [facility] Neutrophils 12.0 % [facility] Bands 3.0 % [facility] Lymphocytes 65.0 % [facility] Monocytes 20.0 % [facility] ABS Neutrophils 0.09 (LL) K/cmm [facility] ABS Bands 0.02 K/cmm [facility] ABS Lymphs 0.48 K/cmm [facility] ABS Monocytes 0.15 K/cmm [facility] RBC Morphology 1+ Microcytes [facility] 1+ Anisocytosis Type of Diff: Manual [facility] Specimen Performing Organization Address City/State/ZIP Code Phon e Number [facility] [address] [place] [address] SERVICES [facility] [address] [place] [address] documented in this encounter Visit Diagnoses Not on filedocumented in this encounter
--- OUTSIDE RECORDS SUMMARY | 2022-05-10 08:31 | XMS_ITS | Encounter Summary ---
:2000 Author Organization Address [address] [place] [address] Care Team Providers Name Role Phone Unavailable Primary Care Provider Unavailable Encounter Details Date Type Department Care Team Description 10/13/2008 - Hospital Encounter [facility] Javier's Francesca Deras 11/15/2008 [facility] Pediatric MD [address] [phone] (Wo rk) Social History Tobacco Use Types Packs/Day Years Used Date Never Assessed Sex Assigned at Date Recorded Not on file documented as of this encounter Discharge Summaries Eduardo Sharp MD - 05/27/2009 0628 EDT HISS DISCHARGE SUMMARY ADDRESS: [address] [place] [id number] PHONE: [phone] ATTENDING PHYSICIAN: FRANCESCA DERAS MD ADDRESS: [place] [address] PHONE: [phone] REFERRING PHYSICIAN: FRANCESCA DERAS MD ADDRESS: [address] [address] PHONE: [phone] ADMISSION DATE: 10/13/08 SERVICE: PED. MEDICINE TRANSFER TO : DISCHARGE DATE: 11/15/08 SERVICE: PED. MEDICINE CHIEF COMPLAINT / REASON FOR ADMISSION: Chemotherapy treatment for AML PRINCIPAL/FINAL DIAGNOSIS: AML CONDITION AT DISCHARGE: Stable DISPOSITION AT DISCHARGE: Home without home health services - Nursing, PT, OT, [employer] ALLERGIES: The following allergies were reported by the patient or discovered and documented during the hospital stay: 1) ALLERGY: AMBISOME 2) ALLERGY: DIPHENHYDRMINE 3) ALLERGY: VORICONAZOLE MEDICATIONS: IMPORTANT INFORMATION ABOUT YOUR MEDICATIONS: Take these medications exactly as prescribed. Take only the amount prescribed. Take only as often as prescribed. Check with your doctor before taking any other medications. WARNING: Medications you were taking prior to this admission may have had the dose changed. Review doses carefully. 1) CO-TRIMOXAZOLE / (bactrim) 10ML SUSPENSION, FRIDAY, FRIDAY, FRIDAY, BY MOUTH 2) CO-TRIMOXAZOLE / (bactrim) 10ML SUSPENSION, FRIDAY, FRIDAY, FRIDAY, BY MOUTH 3) HEPARIN FLUSH / (heparin) 25UNITS INJECTION, ONCE A DAY, BY CENTRAL LINE, SPECIAL SCHEDULE 4) ACYCLOVIR / (zovirax (iv restricted to id approval)) 200MG SUSPENSION, 3 TIMES A DAY, BY MOUTH PNEUMOCYSTITIS PREVENTION: Bactrim MEDICATIONS YOU WERE TAKING PRIOR TO ADMISSION THAT SHOULD BE STOPPED: NONE HERBAL REMEDIES, NUTRITIONAL SUPPLEMENTS, AND TOMD-QLO-NVTFYUH MEDICATIONS that have not been prescribed by a physician may have significant adverse side effect or may interfere with the medications that have been prescribed for you. If you are taking herbal remedies, nutritional supplements, or yqxd-apt-dvsyoel medications you are strongly encouraged to discontinue their use until you have discussed your use of these products with your primary care physician. 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 He is being treated with cytarabine and asparaginase. Since his last discharge on 10/03, he has had no new symptoms or problems of any kind. His hospital course by system is as follows: HEME/ONC: Chemotherapy for AML was started on 10/13, hour zero 16:00. He received Cytarabine on days 1, 2, 8 and 9, and received Asparaginase on days 2 and 9. His counts were monitored every day, and he became neutropenic on 10/19. He received pRBCs and platelet transfusions about every 4 days from 10/17 to 11/12/08. He was given prednisolone eye drops to prevent chemical conjunctivitis from his chemotherapy. ID: He was continued on his Bactrim fri/sat/sun for PCP prophylaxis. This was switched to IV due to nausea with the doses. He was given a test dose of Acyclovir on 10/17 due to history of rash on last admission while receiving Acyclovir and other chemo drugs. 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 Blood cultures were drawn on 10/14 and 10/15 for fever while on the cytarabine, these showed no growth. Fungal cultures also showed no growth. Ceftazidime and Vancomycin were started as prophylaxis when he became neutropenic on 10/19 and were discontinued the day prior to discharge. Antiviral regimen was changed to acyclovir 200 PO TID FEN: He was continued on a regular diet, which he tolerated well. He was kept on maintenance IVF due to his history of poor po intake while receiving chemotherapy. He had occasional decreased po intake due to appetite, but did not require TPN. His lytes/BUN/Cr were followed throughout admission with no abnormal results. RESP: He was on RA throughout his admission. CV: He was hemodynamically stable throughout admission. See heme/onc section for transfusion info. Dispo: he was discharged to home on 11/15 upon return of his absolute neutrophil count to 20. He will follow up in Heme/Onc clinic on 11/17. DIET: Regular diet ACTIVITY: No restrictiosn on activity SHOWERING AND BATHING: Cover cental line and caps prior to showering Do NOT submerge central line WATCH OUT FOR: Tiredness (anemia) Bruising (low platelets) Fevers - any over 101.5 or repeated over 100 degrees FOLLOW UP APPOINTMENTS: Next expected clinic visit 11/17/08 at Heme-Onc clinic VITAL SIGNS AT DISCHARGE: Weight on admission 27 kg cc: Patient chart ELIDA DUNAWAY MD [facility] [address] [place] [id number] END OF REPORT D: EDUARDO SHARP MD A - ZOHDocument ID: [id number] documented in this encounter Discharge Disposition Disposition Code Departure Means Destination Home or Self Care documented in this encounter Plan of Treatment Upcoming Encounters Date Type Specialty Care Team Description 12/18/2022 Ancillary Procedure Cardiology 12/18/2022 Office Visit Cardiology Bg Kelsey MD [address] [facility], [facility], [address] [place], [place] [address] (Wo rk) documented as of this encounter Procedures Procedure Name Priority Date/Time Associated Comments Diagnosis COMPLETE BLOOD COUNT Routine 11/15/2008 4:10 Resu lts for this AND DIFFERENTIAL EST procedure a re in the results section. BUN Routine 11/15/2008 4:10 Results for this EST procedure are i n the results section. CREATININE Routine 11/15/2008 4:10 Results for this EST procedure are i n the results section. ELECTROLYTES Routine 11/15/2008 4:10 Results for this EST procedure are i n the results section. COMPLETE BLOOD COUNT Routine 11/14/2008 4:00 Resu lts for this AND DIFFERENTIAL EST procedure a re in the results section. COMPLETE BLOOD COUNT Routine 11/13/2008 3:15 Resu lts for this AND DIFFERENTIAL EST procedure a re in the results section. BUN Routine 11/13/2008 3:15 Results for this EST procedure are i n the results section. CREATININE Routine 11/13/2008 3:15 Results for this EST procedure are i n the results section. ELECTROLYTES Routine 11/13/2008 3:15 Results for this EST procedure are i n the results section. COMPLETE BLOOD COUNT Routine 11/12/2008 3:15 Resu lts for this AND DIFFERENTIAL EST procedure a re in the results section. COMPLETE BLOOD COUNT Routine 11/11/2008 3:41 EST COMPLETE BLOOD COUNT Routine 11/11/2008 3:41 Resu lts for this AND DIFFERENTIAL EST procedure a re in the results section. BUN Routine 11/11/2008 3:41 Results for this EST procedure are i n the results section. CREATININE Routine 11/11/2008 3:41 Results for this EST procedure are i n the results section. ELECTROLYTES Routine 11/11/2008 3:41 Results for this EST procedure are i n the results section. COMPLETE BLOOD COUNT Routine 11/10/2008 4:40 EST COMPLETE BLOOD COUNT Routine 11/10/2008 4:40 Resu lts for this AND DIFFERENTIAL EST procedure a re in the results section. COMPLETE BLOOD COUNT Routine 11/09/2008 3:50 EST COMPLETE BLOOD COUNT Routine 11/09/2008 3:50 Resu lts for this AND DIFFERENTIAL EST procedure a re in the results section. BUN Routine 11/09/2008 3:50 Results for this EST procedure are i n the results section. CREATININE Routine 11/09/2008 3:50 Results for this EST procedure are i n the results section. ELECTROLYTES Routine 11/09/2008 3:50 Results for this EST procedure are i n the results section. VANCOMYCIN TROUGH Routine 11/07/2008 14:10 Result s for this EST procedure are i n the results section. COMPLETE BLOOD COUNT Routine 11/07/2008 2:00 Resu lts for this AND DIFFERENTIAL EST procedure a re in the results section. BUN Routine 11/07/2008 2:00 Results for this EST procedure are i n the results section. CREATININE Routine 11/07/2008 2:00 Results for this EST procedure are i n the results section. ELECTROLYTES Routine 11/07/2008 2:00 Results for this EST procedure are i n the results section. COMPLETE BLOOD COUNT Routine 11/06/2008 4:30 Resu lts for this AND DIFFERENTIAL EST procedure a re in the results section. COMPLETE BLOOD COUNT Routine 11/05/2008 5:00 Resu lts for this AND DIFFERENTIAL EST procedure a re in the results section. BUN Routine 11/05/2008 5:00 Results for this EST procedure are i n the results section. CREATININE Routine 11/05/2008 5:00 Results for this EST procedure are i n the results section. ELECTROLYTES Routine 11/05/2008 5:00 Results for this EST procedure are i n the results section. COMPLETE BLOOD COUNT Routine 11/04/2008 5:00 Resu lts for this AND DIFFERENTIAL EST procedure a re in the results section. COMPLETE BLOOD COUNT Routine 11/03/2008 6:30 Resu lts for this AND DIFFERENTIAL EST procedure a re in the results section. BUN Routine 11/03/2008 6:30 Results for this EST procedure are i n the results section. CREATININE Routine 11/03/2008 6:30 Results for this EST procedure are i n the results section. ELECTROLYTES Routine 11/03/2008 6:30 Results for this EST procedure are i n the results section. COMPLETE BLOOD COUNT Routine 11/02/2008 4:50 Resu lts for this AND DIFFERENTIAL EST procedure a re in the results section. COMPLETE BLOOD COUNT Routine 11/01/2008 5:00 Resu lts for this AND DIFFERENTIAL EST procedure a re in the results section. BUN Routine 11/01/2008 5:00 Results for this EST procedure are i n the results section. CREATININE Routine 11/01/2008 5:00 Results for this EST procedure are i n the results section. ELECTROLYTES Routine 11/01/2008 5:00 Results for this EST procedure are i n the results section. COMPLETE BLOOD COUNT Routine 10/31/2008 5:05 Resu lts for this AND DIFFERENTIAL EST procedure a re in the results section. COMPLETE BLOOD COUNT Routine 10/30/2008 5:00 Resu lts for this AND DIFFERENTIAL EST procedure a re in the results section. BUN Routine 10/30/2008 5:00 Results for this EST procedure are i n the results section. CREATININE Routine 10/30/2008 5:00 Results for this EST procedure are i n the results section. ELECTROLYTES Routine 10/30/2008 5:00 Results for this EST procedure are i n the results section. COMPLETE BLOOD COUNT Routine 10/29/2008 4:55 Resu lts for this AND DIFFERENTIAL EST procedure a re in the results section. COMPLETE BLOOD COUNT Routine 10/28/2008 5:00 Resu lts for this AND DIFFERENTIAL EST procedure a re in the results section. BUN Routine 10/28/2008 5:00 Results for this EST procedure are i n the results section. CREATININE Routine 10/28/2008 5:00 Results for this EST procedure are i n the results section. ELECTROLYTES Routine 10/28/2008 5:00 Results for this EST procedure are i n the results section. COMPLETE BLOOD COUNT Routine 10/27/2008 5:00 Resu lts for this AND DIFFERENTIAL EST procedure a re in the results section. COMPLETE BLOOD COUNT Routine 10/26/2008 3:00 Resu lts for this AND DIFFERENTIAL EST procedure a re in the results section. BUN Routine 10/26/2008 3:00 Results for this EST procedure are i n the results section. CREATININE Routine 10/26/2008 3:00 Results for this EST procedure are i n the results section. ELECTROLYTES Routine 10/26/2008 3:00 Results for this EST procedure are i n the results section. HOLD GREEN TOP Routine 10/25/2008 5:20 Results fo r this EST procedure are i n the results section. TESTS ADDED BY PHONE Routine 10/25/2008 5:20 Resu lts for this EST procedure are i n the results section. COMPLETE BLOOD COUNT Routine 10/25/2008 5:20 Resu lts for this AND DIFFERENTIAL EST procedure a re in the results section. BUN Routine 10/25/2008 5:20 Results for this EST procedure are i n the results section. CREATININE Routine 10/25/2008 5:20 Results for this EST procedure are i n the results section. ELECTROLYTES Routine 10/25/2008 5:20 Results for this EST procedure are i n the results section. COMPLETE BLOOD COUNT Routine 10/24/2008 5:00 Resu lts for this AND DIFFERENTIAL EST procedure a re in the results section. BUN Routine 10/24/2008 5:00 Results for this EST procedure are i n the results section. CREATININE Routine 10/24/2008 5:00 Results for this EST procedure are i n the results section. ELECTROLYTES Routine 10/24/2008 5:00 Results for this EST procedure are i n the results section. COMPLETE BLOOD COUNT Routine 10/23/2008 4:30 Resu lts for this AND DIFFERENTIAL EST procedure a re in the results section. BUN Routine 10/23/2008 4:30 Results for this EST procedure are i n the results section. CREATININE Routine 10/23/2008 4:30 Results for this EST procedure are i n the results section. ELECTROLYTES Routine 10/23/2008 4:30 Results for this EST procedure are i n the results section. COMPLETE BLOOD COUNT Routine 10/22/2008 6:00 Resu lts for this AND DIFFERENTIAL EST procedure a re in the results section. BUN Routine 10/22/2008 6:00 Results for this EST procedure are i n the results section. CREATININE Routine 10/22/2008 6:00 Results for this EST procedure are i n the results section. ELECTROLYTES Routine 10/22/2008 6:00 Results for this EST procedure are i n the results section. COMPLETE BLOOD COUNT Routine 10/21/2008 4:20 Resu lts for this AND DIFFERENTIAL EST procedure a re in the results section. BUN Routine 10/21/2008 4:20 Results for this EST procedure are i n the results section. CREATININE Routine 10/21/2008 4:20 Results for this EST procedure are i n the results section. ELECTROLYTES Routine 10/21/2008 4:20 Results for this EST procedure are i n the results section. COMPLETE BLOOD COUNT Routine 10/20/2008 3:05 Resu lts for this AND DIFFERENTIAL EST procedure a re in the results section. BUN Routine 10/20/2008 3:05 Results for this EST procedure are i n the results section. CREATININE Routine 10/20/2008 3:05 Results for this EST procedure are i n the results section. ELECTROLYTES Routine 10/20/2008 3:05 Results for this EST procedure are i n the results section. COMPLETE BLOOD COUNT Routine 10/19/2008 4:09 Resu lts for this AND DIFFERENTIAL EST procedure a re in the results section. BUN Routine 10/19/2008 4:09 Results for this EST procedure are i n the results section. CREATININE Routine 10/19/2008 4:09 Results for this EST procedure are i n the results section. ELECTROLYTES Routine 10/19/2008 4:09 Results for this EST procedure are i n the results section. COMPLETE BLOOD COUNT Routine 10/18/2008 4:15 Resu lts for this AND DIFFERENTIAL EST procedure a re in the results section. BUN Routine 10/18/2008 4:15 Results for this EST procedure are i n the results section. CREATININE Routine 10/18/2008 4:15 Results for this EST procedure are i n the results section. ELECTROLYTES Routine 10/18/2008 4:15 Results for this EST procedure are i n the results section. COMPLETE BLOOD COUNT Routine 10/17/2008 5:00 Resu lts for this AND DIFFERENTIAL EST procedure a re in the results section. BUN Routine 10/17/2008 5:00 Results for this EST procedure are i n the results section. CREATININE Routine 10/17/2008 5:00 Results for this EST procedure are i n the results section. ELECTROLYTES Routine 10/17/2008 5:00 Results for this EST procedure are i n the results section. COMPLETE BLOOD COUNT Routine 10/16/2008 4:00 Resu lts for this AND DIFFERENTIAL EST procedure a re in the results section. BUN Routine 10/16/2008 4:00 Results for this EST procedure are i n the results section. CREATININE Routine 10/16/2008 4:00 Results for this EST procedure are i n the results section. ELECTROLYTES Routine 10/16/2008 4:00 Results for this EST procedure are i n the results section. FUNGUS CULTURE, BLOOD Routine 10/15/2008 21:54 Re sults for this EST procedure are i n the results section. BACTERIAL CULTURE, Routine 10/15/2008 21:54 Resul ts for this BLOOD EST procedure are i n the results section. FUNGUS CULTURE, BLOOD Routine 10/15/2008 21:47 Re sults for this EST procedure are i n the results section. BACTERIAL CULTURE, Routine 10/15/2008 21:47 Resul ts for this BLOOD EST procedure are i n the results section. COMPLETE BLOOD COUNT Routine 10/15/2008 4:00 Resu lts for this AND DIFFERENTIAL EST procedure a re in the results section. BUN Routine 10/15/2008 4:00 Results for this EST procedure are i n the results section. CREATININE Routine 10/15/2008 4:00 Results for this EST procedure are i n the results section. ELECTROLYTES Routine 10/15/2008 4:00 Results for this EST procedure are i n the results section. FUNGUS CULTURE, BLOOD Routine 10/14/2008 15:46 Re sults for this EST procedure are i n the results section. BACTERIAL CULTURE, Routine 10/14/2008 15:43 Resul ts for this BLOOD EST procedure are i n the results section. COMPLETE BLOOD COUNT Routine 10/14/2008 3:32 Resu lts for this AND DIFFERENTIAL EST procedure a re in the results section. BUN Routine 10/14/2008 3:32 Results for this EST procedure are i n the results section. CREATININE Routine 10/14/2008 3:32 Results for this EST procedure are i n the results section. ELECTROLYTES Routine 10/14/2008 3:32 Results for this EST procedure are i n the results section. TOTAL & DIRECT Routine 10/13/2008 14:20 Results f or this BILIRUBIN EST procedure are i n the results section. BUN Routine 10/13/2008 14:20 Results for this EST procedure are i n the results section. ALT Routine 10/13/2008 14:20 Results for this EST procedure are i n the results section. AST Routine 10/13/2008 14:20 Results for this EST procedure are i n the results section. PHOSPHORUS Routine 10/13/2008 14:20 Results for this EST procedure are i n the results section. MAGNESIUM Routine 10/13/2008 14:20 Results for this EST procedure are i n the results section. GLUCOSE, SERUM Routine 10/13/2008 14:20 Results f or this EST procedure are i n the results section. CREATININE Routine 10/13/2008 14:20 Results for this EST procedure are i n the results section. ELECTROLYTES Routine 10/13/2008 14:20 Results for this EST procedure are i n the results section. documented in this encounter Results (ABNORMAL) HEMAGRAM AND DIFFERENTIAL (11/15/2008 4:10 EST) WBC 0.56 (LL) 4.5 - 13.5 [facility] K/cmm RBC 3.14 (L) 4.00 - 6.20 [facility] M/cmm Hemoglobin Not Available 11.5 - 15.5 [facility] gm/dl HCT 25.5 (L) 35.0 - 45.0 % [facility] MCV 81 77 - 95 fl [facility] MCH Not calculated pg [facility] MCHC Not calculated gm/dl [facility] PLT 36 (L) 156 - 312 K/cmm [facility] RDW-CV 12.5 % [facility] Neutrophils 4.0 % [facility] Lymphocytes 90.0 % [facility] Monocytes 6.0 % [facility] ABS Neutrophils 0.02 (LL) K/cmm [facility] ABS Lymphs 0.51 K/cmm [facility] ABS Monocytes 0.03 K/cmm [facility] RBC Morphology 1+ Microcytes [facility] Type of Diff: Manual [facility] Specimen Performing Organization Address City/[facility] Code Phon e Number [facility] [address] [place] [address] SERVICES [facility] [address] [place] [address] CREATININE (11/15/2008 4:10 EST) Pathologist Sig nature Creatinine 0.40 0.1 - 0.7 mg/dl [facility] GFR, Calculated Age <18 ml/min/1.73m2 [facility] Specimen Performing Organization Address [facility]/ZIP [facility] Number [facility] [address] [place] [address] SERVICES [facility] [address] [place] [address] BUN (11/15/2008 4:10 EST) Pathologist Sig nature BUN 13 7 - 18 mg/dl [facility] Specimen Performing Organization Address City/[facility]/ZIP Code Phon e Number [facility] [address] [place] [address] SERVICES [facility] [address] [place] [address] ELECTROLYTES (11/15/2008 4:10 EST) Pathologist Sig nature Sodium 142 136 - 145 mEq/L [facility] Potassium 4.2 3.6 - 5.2 mEq/L [facility] Chloride 104 96 - 110 mEq/L [facility] CO2 28 24 - 32 mEq/L [facility] Specimen Performing Organization Address City/[facility] Phon e Number [facility] [address] [place] [address] SERVICES [facility] [address] [place] [address] (ABNORMAL) HEMAGRAM AND DIFFERENTIAL (11/14/2008 4:00 EST) WBC 0.65 (LL) 4.5 - 13.5 [facility] K/cmm RBC 3.15 (L) 4.00 - 6.20 [facility] M/cmm Hemoglobin 9.5 (L) 11.5 - 15.5 [facility] gm/dl HCT 27.0 (L) 35.0 - 45.0 % [facility] MCV Not Available 77 - 95 fl [facility] MCH 30.2 pg [facility] MCHC 35.3 gm/dl [facility] PLT 11 (LL) 156 - 312 [facility] K/cmm RDW-CV 12.8 % [facility] Neutrophils 1.0 % [facility] Lymphocytes 82.0 % [facility] Atyp Lymphs 6.0 % [facility] Monocytes 11.0 % [facility] Nucleated RBC's 1 /100 WBC'S [facility] ABS Neutrophils 0.01 (LL) K/cmm [facility] ABS Lymphs 0.53 K/cmm [facility] ABS Atyp Lymphs 0.04 K/cmm [facility] ABS Monocytes 0.07 K/cmm [facility] RBC Morphology 1+ Poikilocytosis [facility] Type of Diff: Manual [facility] Specimen Performing Organization Address City/[facility]/ZIP Code Phon e Number [facility] [address] [place] [phone] SERVICES [facility] [address] [place] [address] CREATININE (11/13/2008 3:15 EST) Pathologist Sig nature Creatinine 0.40 0.1 - 0.7 mg/dl [facility] GFR, Calculated Age <18 ml/min/1.73m2 [facility] Specimen Performing Organization Address City/[facility]/ZIP Code Phon e Number [facility] [address] [place] [address] SERVICES [facility] [address] [place] [address] (ABNORMAL) BUN (11/13/2008 3:15 EST) Pathologist Sig nature BUN 21 (H) 7 - 18 mg/dl [facility] Specimen Performing Organization Address City/[facility]/ZIP Code Phon e Number [facility] [address] [place] [address] SERVICES [facility] [address] [place] [address] ELECTROLYTES (11/13/2008 3:15 EST) Pathologist Sig nature Sodium 140 136 - 145 mEq/L [facility] Potassium 4.6 3.6 - 5.2 mEq/L [facility] Chloride 102 96 - 110 mEq/L [facility] CO2 27 24 - 32 mEq/L [facility] Specimen Performing Organization Address City/[facility]/ZIP Code Phon e Number [facility] [address] [place] [address] SERVICES [facility] [address] [place] [address] (ABNORMAL) HEMAGRAM AND DIFFERENTIAL (11/13/2008 3:15 EST) WBC 0.34 (LL) 4.5 - 13.5 [facility] K/cmm RBC 3.44 (L) 4.00 - 6.20 [facility] M/cmm Hemoglobin 10.4 (L) 11.5 - 15.5 [facility] gm/dl HCT 29.5 (L) 35.0 - 45.0 % [facility] MCV Not Available 77 - 95 fl [facility] MCH 30.3 pg [facility] MCHC 35.2 gm/dl [facility] PLT 17 (LL) 156 - 312 [facility] K/cmm RDW-CV 12.5 % [facility] Neutrophils 6.0 % [facility] Lymphocytes 90.0 % [facility] Monocytes 4.0 % [facility] ABS Neutrophils 0.02 (LL) K/cmm [facility] ABS Lymphs 0.31 K/cmm [facility] ABS Monocytes 0.01 K/cmm [facility] LAB Cells Counted 50 [facility] RBC Morphology 1+ Anisocytosis [facility] 1+ Microcytes 1+ Poikilocytosis Type of Diff: Manual [facility] Specimen Performing Organization Address City/[facility] Code Phon e Number [facility] [address] [place] [address] SERVICES [facility] [address] [place] [address] (ABNORMAL) HEMAGRAM AND DIFFERENTIAL (11/12/2008 3:15 EST) WBC 0.55 (LL) 4.5 - 13.5 [facility] K/cmm RBC 2.54 (L) 4.00 - 6.20 [facility] M/cmm Hemoglobin Not Available 11.5 - 15.5 [facility] gm/dl HCT 20.4 (LL) 35.0 - 45.0 % [facility] MCV 81 77 - 95 fl [facility] MCH Not calculated pg [facility] MCHC Not calculated gm/dl [facility] PLT 32 (L) 156 - 312 K/cmm [facility] RDW-CV 13.0 % [facility] Neutrophils 0.0 % [facility] Lymphocytes 96.0 % [facility] Monocytes 2.0 % [facility] Myelocytes 2.0 % [facility] ABS Neutrophils 0.00 (LL) K/cmm [facility] ABS Lymphs 0.53 K/cmm [facility] ABS Monocytes 0.01 K/cmm [facility] ABS Myelocytes 0.01 K/cmm [facility] RBC Morphology 1+ Microcytes [facility] Type of Diff: Manual [facility] Specimen Performing Organization Address City/[facility]/ZIP Code Phon e Number [facility] [address] [place] [address] SERVICES [facility] [address] [place] [address] HEMAGRAM (11/11/2008 3:41 EST) Specimen Performing Organization Address [facility] Phon e Number [facility] [address] [place] [address] SERVICES CREATININE (11/11/2008 3:41 EST) Pathologist Sig nature Creatinine 0.40 0.1 - 0.7 mg/dl [facility] GFR, Calculated Age <18 ml/min/1.73m2 [facility] Specimen Performing Organization Address [facility] Phon e Number [facility] [address] [place] [address] SERVICES [facility] [address] [place] [address] BUN (11/11/2008 3:41 EST) Pathologist Sig nature BUN 13 7 - 18 mg/dl [facility] Specimen Performing Organization Address [facility] Phon e Number [facility] [address] [place] [address] SERVICES [facility] [address] [place] [address] ELECTROLYTES (11/11/2008 3:41 EST) Pathologist Sig nature Sodium 142 136 - 145 mEq/L [facility] Potassium 4.0 3.6 - 5.2 mEq/L [facility] Chloride 102 96 - 110 mEq/L [facility] CO2 31 24 - 32 mEq/L [facility] Specimen Performing Organization Address [facility] Phon e Number [facility] [address] [place] [address] SERVICES [facility] [address] [place] [address] (ABNORMAL) HEMAGRAM AND DIFFERENTIAL (11/11/2008 3:41 EST) Pathologist Sig nature WBC 0.28 (LL) 4.5 - 13.5 K/cmm [facility] RBC 2.52 (L) 4.00 - 6.20 M/cmm [facility] Hemoglobin 7.7 (L) 11.5 - 15.5 gm/dl [facility] HCT 22.0 (L) 35.0 - 45.0 % [facility] MCV Not Available 77 - 95 fl [facility] MCH Not calculated pg [facility] MCHC 35.0 gm/dl [facility] PLT 38 (L) 156 - 312 K/cmm [facility] RDW-CV 12.0 % [facility] Specimen Performing Organization Address City/[facility]/ZIP Code Phon e Number [facility] [address] [place] [address] SERVICES [facility] [address] [place] [address] HEMAGRAM (11/10/2008 4:40 EST) Specimen Performing Organization Address [facility]/ZIP Code Phon e Number [facility] [address] [place] [address] SERVICES (ABNORMAL) HEMAGRAM AND DIFFERENTIAL (11/10/2008 4:40 EST) WBC 0.27 (LL) 4.5 - 13.5 [facility] K/cmm RBC 2.70 (L) 4.00 - 6.20 [facility] M/cmm Hemoglobin 8.2 (L) 11.5 - 15.5 [facility] gm/dl HCT 23.5 (L) 35.0 - 45.0 % [facility] MCV Not Available 77 - 95 fl [facility] MCH 30.3 pg [facility] MCHC 34.8 gm/dl [facility] PLT 54 (L) 156 - 312 K/cmm [facility] RDW-CV 12.3 % [facility] Neutrophils Cancelled, low WBC % [facility] Specimen Performing Organization Address City/[facility]/ZIP Code Phon e Number [facility] [address] [place] [address] SERVICES [facility] [address] [place] [address] HEMAGRAM (11/09/2008 3:50 EST) Specimen Performing Organization Address City/[facility]/ZIP Code Phon e Number [facility] [address] [place] [address] SERVICES (ABNORMAL) HEMAGRAM AND DIFFERENTIAL (11/09/2008 3:50 EST) Pathologist Sig nature WBC 0.24 (LL) 4.5 - 13.5 K/cmm [facility] RBC 2.73 (L) 4.00 - 6.20 M/cmm [facility] Hemoglobin 8.2 (L) 11.5 - 15.5 gm/dl [facility] HCT 23.8 (L) 35.0 - 45.0 % [facility] MCV Not Available 77 - 95 fl [facility] MCH 30.1 pg [facility] MCHC 34.5 gm/dl [facility] PLT 17 (LL) 156 - 312 K/cmm [facility] RDW-CV 12.9 % [facility] Specimen Performing Organization Address [facility] Phon e Number [facility] [address] [place] [address] SERVICES [facility] [address] [place] [address] CREATININE (11/09/2008 3:50 EST) Pathologist Sig [facility] Creatinine 0.30 0.1 - 0.7 mg/dl [facility] GFR, Calculated Age <18 ml/min/1.73m2 [facility] Specimen Performing Organization Address [facility] Phon e Number [facility] [address] [place] [address] SERVICES [facility] [address] [place] [address] BUN (11/09/2008 3:50 EST) Pathologist Sig nature BUN 10 7 - 18 mg/dl [facility] Specimen Performing Organization Address City/[facility]/Z[place] [facility] Phon e Number [facility] [address] [place] [address] SERVICES [facility] [address] [place] [address] ELECTROLYTES (11/09/2008 3:50 EST) Pathologist Sig nature Sodium 139 136 - 145 mEq/L [facility] Potassium 4.0 3.6 - 5.2 mEq/L [facility] Chloride 101 96 - 110 mEq/L [facility] CO2 29 24 - 32 mEq/L [facility] Specimen Performing Organization Address [facility]/ZIP [facility] Phon e Number [facility] [address] [place] [address] SERVICES [facility] [address] [place] [address] VANCOMYCIN TROUGH (11/07/2008 14:10 EST) Pathologist Sig nature Vancomycin Trough 5.1 ug/ml [facility] Vancomycin Dose Start Date [facility] Vancomycin Dose Start Time 1412 [facility] Specimen Performing Organization Address [facility]/ZIP Code Phon e Number [facility] [address] [place] [address] SERVICES [facility] [address] [place] [address] CREATININE (11/07/2008 2:00 EST) Pathologist Sig nature Creatinine 0.40 0.1 - 0.7 mg/dl [facility] GFR, Calculated Age <18 ml/min/1.73m2 [facility] Specimen Performing Organization Address City/[facility]/ZIP [facility] Phon e Number [facility] [address] [place] [address] SERVICES [facility] [address] [place] [address] BUN (11/07/2008 2:00 EST) Pathologist Sig nature BUN 18 7 - 18 mg/dl [facility] Specimen Performing Organization Address [facility] Phon e Number [facility] [address] [place] [address] SERVICES [facility] [address] [place] [address] ELECTROLYTES (11/07/2008 2:00 EST) Pathologist Sig nature Sodium 141 136 - 145 mEq/L [facility] Potassium 4.3 3.6 - 5.2 mEq/L [facility] Chloride 102 96 - 110 mEq/L [facility] CO2 30 24 - 32 mEq/L [facility] Specimen Performing Organization Address [facility]/ZIP [facility] Phon e Number [facility] [address] [place] [address] SERVICES [facility] [address] [place] [address] (ABNORMAL) HEMAGRAM AND DIFFERENTIAL (11/07/2008 2:00 EST) WBC 0.45 (LL) 4.5 - 13.5 [facility] K/cmm RBC 3.25 (L) 4.00 - 6.20 [facility] M/cmm Hemoglobin 9.8 (L) 11.5 - 15.5 [facility] gm/dl HCT 27.0 (L) 35.0 - 45.0 % [facility] MCV Not Available 77 - 95 fl [facility] MCH 30.2 pg [facility] MCHC 36.3 gm/dl [facility] PLT 36 (L) 156 - 312 [facility] K/cmm RDW-CV 13.9 % [facility] Neutrophils 0.0 % [facility] Lymphocytes 100.0 % [facility] ABS Neutrophils 0.00 (LL) K/cmm [facility] ABS Lymphs 0.45 K/cmm [facility] Cells Counted 50 [facility] RBC Morphology 1+ Anisocytosis [facility] 1+ Microcytes 1+ Poikilocytosis Type of Diff: Manual [facility] Specimen Performing Organization Address City/State/ZIP Code Phon e Number [facility] [address] [place] [address] SERVICES [facility] [address] [place] [address] (ABNORMAL) HEMAGRAM AND DIFFERENTIAL (11/06/2008 4:30 EST) Pathologist Sig nature WBC 0.23 (LL) 4.5 - 13.5 [facility] K/cmm RBC 2.54 (L) 4.00 - 6.20 [facility] M/cmm Hemoglobin 7.6 (L) 11.5 - 15.5 [facility] gm/dl HCT 21.0 (L) 35.0 - 45.0 % [facility] MCV 83 77 - 95 fl [facility] MCH 29.9 pg [facility] MCHC 36.2 gm/dl [facility] PLT 48 (L) 156 - 312 K/cmm [facility] RDW-CV 12.9 % [facility] Neutrophils 0.0 % [facility] Lymphocytes 100.0 % [facility] ABS Neutrophils 0.00 (LL) K/cmm [facility] ABS Lymphs 0.23 K/cmm [facility] Cells Counted 50 [facility] RBC Morphology 1+ Microcytes [facility] Type of Diff: Manual [facility] Specimen Performing Organization Address City/State/ZIP Code Phon e Number [facility] [address] [place] [address] SERVICES [facility] [address] [place] [address] (ABNORMAL) HEMAGRAM AND DIFFERENTIAL (11/05/2008 5:00 EST) WBC 0.37 (LL) 4.5 - 13.5 [facility] K/cmm RBC 2.77 (L) 4.00 - 6.20 [facility] M/cmm Hemoglobin 8.4 (L) 11.5 - 15.5 [facility] gm/dl HCT 23.3 (L) 35.0 - 45.0 % [facility] MCV Not Available 77 - 95 fl [facility] MCH 30.4 pg [facility] MCHC 36.1 gm/dl [facility] PLT 12 (LL) 156 - 312 [facility] K/cmm RDW-CV 12.8 % [facility] Neutrophils 0.0 % [facility] Lymphocytes 100.0 % [facility] ABS Neutrophils 0.00 (LL) K/cmm [facility] ABS Lymphs 0.37 K/cmm [facility] Cells Counted 50 [facility] RBC Morphology 1+ Microcytes [facility] 1+ Poikilocytosis Type of Diff: Manual [facility] Specimen Performing Organization Address City/[facility]/ZIP Code Phon e Number [facility] [address] [place] [address] SERVICES [facility] [address] [place] [address] CREATININE (11/05/2008 5:00 EST) Pathologist Sig nature Creatinine 0.40 0.1 - 0.7 mg/dl [facility] GFR, Calculated Age <18 ml/min/1.73m2 [facility] Specimen Performing Organization Address City/State/ZIP Code Phon e Number [facility] [address] [place] [address] SERVICES [facility] [address] [place] [address] BUN (11/05/2008 5:00 EST) Pathologist Sig nature BUN 12 7 - 18 mg/dl [facility] Specimen Performing Organization Address City/[facility]/ZIP Code Phon e Number [facility] [address] [place] [address] SERVICES [facility] [address] [place] [address] ELECTROLYTES (11/05/2008 5:00 EST) Pathologist Sig nature Sodium 140 136 - 145 mEq/L [facility] Potassium 4.5 3.6 - 5.2 mEq/L [facility] Chloride 104 96 - 110 mEq/L [facility] CO2 27 24 - 32 mEq/L [facility] Specimen Performing Organization Address City/[facility]/ZIP Code Phon e Number [facility] [address] [place] [address] SERVICES [facility] [address] [place] [address] (ABNORMAL) HEMAGRAM AND DIFFERENTIAL (11/04/2008 5:00 EST) WBC 0.40 (LL) 4.5 - 13.5 [facility] K/cmm RBC 2.96 (L) 4.00 - 6.20 [facility] M/cmm Hemoglobin 8.9 (L) 11.5 - 15.5 [facility] gm/dl HCT 25.0 (L) 35.0 - 45.0 % [facility] MCV Not calculated 77 - 95 fl [facility] MCH 30.3 pg [facility] MCHC 35.8 gm/dl [facility] PLT 22 (L) 156 - 312 K/cmm [facility] RDW-CV 12.6 % [facility] Neutrophils 0.0 % [facility] Lymphocytes 100.0 % [facility] ABS Neutrophils 0.00 (LL) K/cmm [facility] ABS Lymphs 0.40 K/cmm [facility] Cells Counted 50 [facility] RBC Morphology 1+ Microcytes [facility] Type of Diff: Manual [facility] Specimen Performing Organization Address City/State/ZIP Code Phon e Number [facility] [address] [place] [address] SERVICES [facility] [address] [place] [address] (ABNORMAL) HEMAGRAM AND DIFFERENTIAL (11/03/2008 6:30 EST) WBC 0.52 (LL) 4.5 - 13.5 [facility] K/cmm RBC 3.11 (L) 4.00 - 6.20 [facility] M/cmm Hemoglobin 9.5 (L) 11.5 - 15.5 [facility] gm/dl HCT 26.0 (L) 35.0 - 45.0 % [facility] MCV Not calculated 77 - 95 fl [facility] MCH 30.5 pg [facility] MCHC 36.3 gm/dl [facility] PLT 29 (L) 156 - 312 K/cmm [facility] RDW-CV 13.4 % [facility] Neutrophils 2.0 % [facility] Lymphocytes 95.0 % [facility] Monocytes 3.0 % [facility] ABS Neutrophils 0.01 (LL) K/cmm [facility] ABS Lymphs 0.49 K/cmm [facility] ABS Monocytes 0.02 K/cmm [facility] RBC Morphology 1+ Microcytes [facility] Type of Diff: Manual [facility] Specimen Performing Organization Address City/[facility]/ZIP Code Phon e Number [facility] [address] [place] [address] SERVICES [facility] [address] [place] [address] CREATININE (11/03/2008 6:30 EST) Creatinine 0.40Comment: 0.1 - 0.7 [facility] Heparinized plasma. mg/dl LAB GFR, Calculated Age <18 ml/min/1.73m2 [facility] Heparinized plasma. LAB Specimen Performing Organization Address City/State/ZIP Code Phon e Number [facility] [address] [place] [address] SERVICES [facility] [address] [place] [address] BUN (11/03/2008 6:30 EST) Pathologist Sig nature BUN 12Comment: Heparinized 7 - 18 mg/dl [facility] plasma. Specimen Performing Organization Address City/[facility]/ZIP Code Phon e Number [facility] [address] [place] [address] SERVICES [facility] [address] [place] [address] ELECTROLYTES (11/03/2008 6:30 EST) Sodium 141Comment: 136 - 145 mEq/L [facility] Heparinized plasma. Potassium 4.8Comment: 3.6 - 5.2 mEq/L [facility] Heparinized plasma. Chloride 104Comment: 96 - 110 mEq/L [facility] Heparinized plasma. CO2 30Comment: 24 - 32 mEq/L [facility] Heparinized plasma. Specimen Performing Organization Address City/[facility]/ZIP Code Phon e Number [facility] [address] [place] [address] SERVICES [facility] [address] [place] [address] (ABNORMAL) HEMAGRAM AND DIFFERENTIAL (11/02/2008 4:50 EST) WBC 0.45 (LL) 4.5 - 13.5 [facility] K/cmm RBC 3.26 (L) 4.00 - 6.20 [facility] M/cmm Hemoglobin 9.8 (L) 11.5 - 15.5 [facility] gm/dl HCT 27.0 (L) 35.0 - 45.0 % [facility] MCV 83 77 - 95 fl [facility] MCH 30.1 pg [facility] MCHC 36.3 gm/dl [facility] PLT 42 (L) 156 - 312 K/cmm [facility] RDW-CV 12.6 % [facility] Neutrophils 0.0 % [facility] Lymphocytes 98.0 % [facility] Atyp Lymphs 2.0 % [facility] ABS Neutrophils 0.00 (LL) K/cmm [facility] ABS Lymphs 0.44 K/cmm [facility] ABS Atyp Lymphs 0.01 K/cmm [facility] Cells Counted 50 [facility] RBC Morphology 1+ Anisocytosis [facility] 1+ Microcytes Type of Diff: Manual [facility] Specimen Performing Organization Address City/[facility]/ZIP Code Phon e Number [facility] [address] [place] [address] SERVICES [facility] [address] [place] [address] (ABNORMAL) HEMAGRAM AND DIFFERENTIAL (11/01/2008 5:00 EST) WBC 0.16 (LL) 4.5 - 13.5 [facility] Comment: K/cmm LAB ??Corrected on 11/01 AT 0603: Previously reported as 0.23 RBC 2.45 (L) 4.00 - 6.20 [facility] Comment: M/cmm LAB ??Corrected on 11/01 AT 0603: Previously reported as 2.50 Hemoglobin Not Available 11.5 - 15.5 [facility] Comment: gm/dl LAB ??Corrected on 11/01 AT 06: Previously reported as 7.5 HCT 19.9 (LL) 35.0 - 45.0 % [facility] Comment: LAB ??Corrected on 11/01 AT 06: Previously reported as 20.4 MCV 81 77 - 95 fl [facility] Comment: LAB ??Corrected on 11/01 AT 602: Previously reported as 82 MCH Not calculated pg [facility] Comment: LAB ??Corrected on 11/01 AT 06: Previously reported as 30.2 MCHC Not calculated gm/dl [facility] Comment: LAB ??Corrected on 11/01 AT 06: Previously reported as 36.9 PLT 58 (L) 156 - 312 [facility] Comment: K/cmm LAB ??Corrected on 11/01 AT 0603: Previously reported as 57 RDW-CV 12.3 % [facility] Comment: LAB ??Corrected on 11/01 AT 0603: Previously reported as 12.9 Neutrophils 0.0 % [facility] MUSA Lymphocytes 100.0 % [facility] ABS Neutrophils 0.00 (LL) K/cmm [facility] ABS Lymphs 0.16 K/cmm [facility] Cells Counted 50 [facility] RBC Morphology 1+ Microcytes [facility] Type of Diff: Manual [facility] Specimen Performing Organization Address City/State/ZIP Code Phon e Number [facility] [address] [place] [address] SERVICES [facility] [address] [place] [address] CREATININE (11/01/2008 5:00 EST) Pathologist Sig nature Creatinine 0.40 0.1 - 0.7 mg/dl [facility] GFR, Calculated Age <18 ml/min/1.73m2 [facility] Specimen Performing Organization Address City/[facility]/ZIP Code Phon e Number [facility] [address] [place] [address] SERVICES [facility] [address] [place] [address] BUN (11/01/2008 5:00 EST) Pathologist Sig nature BUN 11 7 - 18 mg/dl [facility] Specimen Performing Organization Address [facility] Phon e Number [facility] [address] [place] [address] SERVICES [facility] [address] [place] [address] ELECTROLYTES (11/01/2008 5:00 EST) Pathologist Sig nature Sodium 138 136 - 145 mEq/L [facility] Potassium 4.4 3.6 - 5.2 mEq/L [facility] Chloride 106 96 - 110 mEq/L [facility] CO2 25 24 - 32 mEq/L [facility] Specimen Performing Organization Address [facility] Phon e Number [facility] [address] [place] [address] SERVICES [facility] [address] [place] [address] (ABNORMAL) HEMAGRAM AND DIFFERENTIAL (10/31/2008 5:05 EST) Pathologist Sig nature WBC 0.42 (LL) 4.5 - 13.5 [facility] K/cmm RBC 2.67 (L) 4.00 - 6.20 [facility] M/cmm Hemoglobin 8.1 (L) 11.5 - 15.5 [facility] gm/dl HCT 23.0 (L) 35.0 - 45.0 % [facility] MCV Not Available 77 - 95 fl [facility] MCH 30.2 pg [facility] MCHC 35.2 gm/dl [facility] PLT 20 (LL) 156 - 312 K/cmm [facility] RDW-CV 12.4 % [facility] Neutrophils 0.0 % [facility] Lymphocytes 100.0 % [facility] ABS Neutrophils 0.00 (LL) K/cmm [facility] ABS Lymphs 0.42 K/cmm [facility] Cells Counted 50 [facility] RBC Morphology Normal [facility] Type of Diff: Manual [facility] Specimen Performing Organization Address [facility]/ZIP [facility] Phon e Number [facility] [address] [place] [address] SERVICES [facility] [address] [place] [address] (ABNORMAL) HEMAGRAM AND DIFFERENTIAL (10/30/2008 5:00 EST) WBC 0.40 (LL) 4.5 - 13.5 [facility] K/cmm RBC 2.87 (L) 4.00 - 6.20 [facility] M/cmm Hemoglobin Not Available 11.5 - 15.5 [facility] gm/dl HCT 23.4 (L) 35.0 - 45.0 % [facility] MCV 81 77 - 95 fl [facility] MCH Not calculated pg [facility] MCHC Not calculated gm/dl [facility] PLT 40 (L) 156 - 312 [facility] K/cmm RDW-CV 13.5 % [facility] Neutrophils Sample quantity % [facility] insufficient for testing. Specimen Performing Organization Address [facility]/ZIP Code Phon e Number [facility] [address] [place] [address] SERVICES [facility] [address] [place] [address] CREATININE (10/30/2008 5:00 EST) Pathologist Sig nature Creatinine 0.40 0.1 - 0.7 mg/dl [facility] GFR, Calculated Age <18 ml/min/1.73m2 [facility] Specimen Performing Organization Address City/[facility]/ZIP Code Phon e Number [facility] [address] [place] [address] SERVICES [facility] [address] [place] [address] (ABNORMAL) BUN (10/30/2008 5:00 EST) Pathologist Sig nature BUN 19 (H) 7 - 18 mg/dl [facility] Specimen Performing Organization Address City/[facility]/ZIP Code Phon e Number [facility] [address] [place] [address] SERVICES [facility] [address] [place] [address] ELECTROLYTES (10/30/2008 5:00 EST) Pathologist Sig nature Sodium 137 136 - 145 mEq/L [facility] Potassium 4.6 3.6 - 5.2 mEq/L [facility] Chloride 106 96 - 110 mEq/L [facility] CO2 24 24 - 32 mEq/L [facility] Specimen Performing Organization Address [facility] Code Phon e Number [facility] [address] [place] [address] SERVICES [facility] [address] [place] [address] (ABNORMAL) HEMAGRAM AND DIFFERENTIAL (10/29/2008 4:55 EST) Pathologist Sig nature WBC 0.50 (LL) 4.5 - 13.5 K/cmm [facility] RBC 3.04 (L) 4.00 - 6.20 M/cmm [facility] Hemoglobin 9.1 (L) 11.5 - 15.5 gm/dl [facility] HCT 25.0 (L) 35.0 - 45.0 % [facility] MCV 82 77 - 95 fl [facility] MCH 30.0 pg [facility] MCHC 36.5 gm/dl [facility] PLT 51 (L) 156 - 312 K/cmm [facility] RDW-CV 12.3 % [facility] Neutrophils 0.0 % [facility] Lymphocytes 98.0 % [facility] Atyp Lymphs 2.0 % [facility] ABS Neutrophils 0.00 (LL) K/cmm [facility] ABS Lymphs 0.49 K/cmm [facility] ABS Atyp Lymphs 0.01 K/cmm [facility] Cells Counted 50 [facility] RBC Morphology Normal [facility] Type of Diff: Manual [facility] Specimen Performing Organization Address [facility] [facility] Code Phon e Number [facility] [address] [place] [address] SERVICES [facility] [address] [place] [address] (ABNORMAL) HEMAGRAM AND DIFFERENTIAL (10/28/2008 5:00 EST) WBC 0.50 (LL) 4.5 - 13.5 [facility] K/cmm RBC 3.19 (L) 4.00 - 6.20 [facility] M/cmm Hemoglobin 9.7 (L) 11.5 - 15.5 [facility] gm/dl HCT 26.5 (L) 35.0 - 45.0 % [facility] MCV Not calculated 77 - 95 fl [facility] MCH 30.4 pg [facility] MCHC 36.5 gm/dl [facility] PLT 71 (L) 156 - 312 K/cmm [facility] RDW-CV 13.0 % [facility] Neutrophils 0.0 % [facility] Lymphocytes 98.0 % [facility] Monocytes 2.0 % [facility] ABS Neutrophils 0.00 (LL) K/cmm [facility] ABS Lymphs 0.49 K/cmm [facility] ABS Monocytes 0.01 K/cmm [facility] Cells Counted 50 [facility] RBC Morphology 1+ Anisocytosis [facility] Type of Diff: Manual [facility] Specimen Performing Organization Address City/[facility]/ZIP Code Phon e Number [facility] [address] [place] [address] [facility] [address] [place] [address] CREATININE (10/28/2008 5:00 EST) Pathologist Sig nature Creatinine 0.52 0.1 - 0.7 mg/dl [facility] GFR, Calculated Age <18 ml/min/1.73m2 [facility] Specimen Performing Organization Address City/[facility]/ZIP Code Phon e Number [facility] [address] [place] [address] SERVICES [facility] [address] [place] [address] BUN (10/28/2008 5:00 EST) Pathologist Sig nature BUN 18 7 - 18 mg/dl [facility] Specimen Performing Organization Address City/[facility]/ZIP [facility] Phon e Number [facility] [address] [place] [address] [facility] [address] [place] [address] ELECTROLYTES (10/28/2008 5:00 EST) Pathologist Sig nature Sodium 139 136 - 145 mEq/L [facility] Potassium 4.7 3.6 - 5.2 mEq/L [facility] Chloride 106 96 - 110 mEq/L [facility] CO2 26 24 - 32 mEq/L [facility] Specimen Performing Organization Address City/[facility] Phon e Number [facility] [address] [place] [address] [facility] [address] [place] [address] (ABNORMAL) HEMAGRAM AND DIFFERENTIAL (10/27/2008 5:00 EST) WBC 0.34 (LL) 4.5 - 13.5 [facility] K/cmm RBC 3.47 (L) 4.00 - 6.20 [facility] M/cmm Hemoglobin Not Available 11.5 - 15.5 [facility] gm/dl HCT 28.3 (L) 35.0 - 45.0 % [facility] MCV 82 77 - 95 fl [facility] MCH Not calculated pg [facility] MCHC Not calculated gm/dl [facility] PLT 15 (LL) 156 - 312 [facility] K/cmm RDW-CV 12.8 % [facility] Neutrophils 0.0 % [facility] Lymphocytes 96.0 % [facility] Atyp Lymphs 4.0 % [facility] ABS Neutrophils 0.00 (LL) K/cmm [facility] ABS Lymphs 0.33 K/cmm [facility] ABS Atyp Lymphs 0.01 K/cmm [facility] Cells Counted 50 [facility] RBC Morphology 1+ Anisocytosis [facility] 1+ Microcytes 1+ Poikilocytosis 1+ Teardrop cells Type of Diff: Manual [facility] Specimen Performing Organization Address City/[facility]/ZIP Code Phon e Number [facility] [address] [place] [address] SERVICES [facility] [address] [place] [address] (ABNORMAL) HEMAGRAM AND DIFFERENTIAL (10/26/2008 3:00 EST) WBC 0.36 (LL) 4.5 - 13.5 [facility] K/cmm RBC 3.35 (L) 4.00 - 6.20 [facility] M/cmm Hemoglobin 10.1 (L) 11.5 - 15.5 [facility] gm/dl HCT 28.5 (L) 35.0 - 45.0 % [facility] MCV Not calculated 77 - 95 fl [facility] MCH 30.0 pg [facility] MCHC 35.3 gm/dl [facility] PLT 22 (L) 156 - 312 K/cmm [facility] RDW-CV 13.8 % [facility] Neutrophils 0.0 % [facility] Lymphocytes 98.0 % [facility] Atyp Lymphs 2.0 % [facility] ABS Neutrophils 0.00 (LL) K/cmm [facility] ABS Lymphs 0.35 K/cmm [facility] ABS Atyp Lymphs 0.01 K/cmm [facility] Cells Counted 50 [facility] RBC Morphology 1+ Anisocytosis [facility] 1+ Microcytes Type of Diff: Manual [facility] Specimen Performing Organization Address City/[facility] Phon e Number [facility] [address] [place] [address] SERVICES [facility] [address] [place] [address] CREATININE (10/26/2008 3:00 EST) Pathologist Sig nature Creatinine 0.50 0.1 - 0.7 mg/dl [facility] GFR, Calculated Age <18 ml/min/1.73m2 [facility] Specimen Performing Organization Address City/[facility]/ZIP Code Phon e Number [facility] [address] [place] [address] [facility] [address] [place] [address] BUN (10/26/2008 3:00 EST) Pathologist Sig nature BUN 15 7 - 18 mg/dl [facility] Specimen Performing Organization Address City/[facility]/ZIP [facility] Phon e Number [facility] [address] [place] [address] SERVICES [facility] [address] [place] [address] ELECTROLYTES (10/26/2008 3:00 EST) Pathologist Sig nature Sodium 139 136 - 145 mEq/L [facility] Potassium 4.4 3.6 - 5.2 mEq/L [facility] Chloride 108 96 - 110 mEq/L [facility] CO2 24 24 - 32 mEq/L [facility] Specimen Performing Organization Address City/[facility]/ZIP Code Phon e Number [facility] [address] [place] [address] SERVICES [facility] [address] [place] [address] HOLD GREEN TOP (10/25/2008 5:20 EST) Pathologist Sig nature Hold Green Top Hold for further [facility] testing. Specimen will be held for 5 days. Specimen Performing Organization Address City/[facility]/ZIP Code Phon e Number [facility] [address] [place] [address] [facility] [address] [place] [address] CREATININE (10/25/2008 5:20 EST) Pathologist Sig nature Creatinine 0.50 0.1 - 0.7 mg/dl [facility] GFR, Calculated Age <18 ml/min/1.73m2 [facility] Specimen Performing Organization Address [facility]/ZIP Code Phon e Number [facility] [address] [place] [address] SERVICES [facility] [address] [place] [address] BUN (10/25/2008 5:20 EST) Pathologist Sig nature BUN 15 7 - 18 mg/dl [facility] Specimen Performing Organization Address [facility] Code Phon e Number [facility] [address] [place] [address] SERVICES [facility] [address] [place] [address] ELECTROLYTES (10/25/2008 5:20 EST) Pathologist Sig nature Sodium 140 136 - 145 mEq/L [facility] Potassium 4.4 3.6 - 5.2 mEq/L [facility] Chloride 108 96 - 110 mEq/L [facility] CO2 25 24 - 32 mEq/L [facility] Specimen Performing Organization Address City/[facility]/ZIP Code Phon e Number [facility] [address] [place] [address] SERVICES [facility] [address] [place] [address] TESTS ADDED BY PHONE (10/25/2008 5:20 EST) Pathologist Sig nature Tests to be added LYT,BUN,CREAT [facility] Who Called [facility] Location Code B5 [facility] Specimen Performing Organization Address [facility]/ZIP Code Phon e Number [facility] [address] [place] [address] [facility] [address] [place] [address] (ABNORMAL) HEMAGRAM AND DIFFERENTIAL (10/25/2008 5:20 EST) WBC 0.35 (LL) 4.5 - 13.5 [facility] K/cmm RBC 3.46 (L) 4.00 - 6.20 [facility] M/cmm Hemoglobin Not Available 11.5 - 15.5 [facility] gm/dl HCT 28.2 (L) 35.0 - 45.0 % [facility] MCV Not Available 77 - 95 fl [facility] MCH Not calculated pg [facility] MCHC Not calculated gm/dl [facility] PLT 30 (L) 156 - 312 [facility] K/cmm RDW-CV 12.7 % [facility] Neutrophils 6.0 % [facility] Lymphocytes 92.0 % [facility] Atyp Lymphs 2.0 % [facility] ABS Neutrophils 0.02 (LL) K/cmm [facility] ABS Lymphs 0.32 K/cmm [facility] ABS Atyp Lymphs 0.01 K/cmm [facility] Cells Counted 50 [facility] RBC Morphology 1+ Microcytes [facility] 1+ Teardrop cells 1+ Poikilocytosis Type of Diff: Manual [facility] Specimen Performing Organization Address City/[facility]/ZIP Code Phon e Number [facility] [address] [place] [address] SERVICES [facility] [address] [place] [address] (ABNORMAL) HEMAGRAM AND DIFFERENTIAL (10/24/2008 5:00 EST) WBC 0.53 (LL) 4.5 - 13.5 [facility] K/cmm LAB RBC 2.74 (L) 4.00 - 6.20 [facility] M/cmm LAB Hemoglobin Not Available 11.5 - 15.5 [facility] gm/dl LAB HCT 22.1 (L) 35.0 - 45.0 % [facility] MCV 81 77 - 95 fl [facility] MCH Not calculated pg [facility] MCHC Not calculated gm/dl [facility] PLT 44 (L) 156 - 312 [facility] K/cmm LAB RDW-CV 13.7 % [facility] Neutrophils 21.0 % [facility] Lymphocytes 79.0 % [facility] Other Cells 0.0 % [facility] ABS Neutrophils 0.11 (LL) K/cmm [facility] ABS Lymphs 0.42 K/cmm [facility] ABS Other Cells 0.00 K/cmm [facility] RBC Morphology 1+ Poikilocytosis [facility] 1+ Microcytes LAB Comment Reviewed by Dr. Vinod MUSA Type of Diff: Manual [facility] Specimen Performing Organization Address City/[facility] Phon e Number [facility] [address] [place] [address] SERVICES [facility] [address] [place] [address] CREATININE (10/24/2008 5:00 EST) Pathologist Sig nature Creatinine 0.50 0.1 - 0.7 mg/dl [facility] GFR, Calculated Age <18 ml/min/1.73m2 [facility] Specimen Performing Organization Address City/[facility]/ZIP Code Phon e Number [facility] [address] [place] [address] SERVICES [facility] [address] [place] [address] (ABNORMAL) BUN (10/24/2008 5:00 EST) Pathologist Sig nature BUN 22 (H) 7 - 18 mg/dl [facility] Specimen Performing Organization Address City/[facility]/ZIP [facility] Phon e Number [facility] [address] [place] [address] SERVICES [facility] [address] [place] [address] ELECTROLYTES (10/24/2008 5:00 EST) Pathologist Sig nature Sodium 137 136 - 145 mEq/L [facility] Potassium 4.4 3.6 - 5.2 mEq/L [facility] Chloride 105 96 - 110 mEq/L [facility] CO2 24 24 - 32 mEq/L [facility] Specimen Performing Organization Address City/[facility]/ZIP Code Phon e Number [facility] [address] [place] [address] SERVICES [facility] [address] [place] [address] (ABNORMAL) HEMAGRAM AND DIFFERENTIAL (10/23/2008 4:30 EST) WBC 0.45 (LL) 4.5 - 13.5 [facility] K/cmm RBC 3.09 (L) 4.00 - 6.20 [facility] M/cmm Hemoglobin Not Available 11.5 - 15.5 [facility] gm/dl HCT 25.1 (L) 35.0 - 45.0 % [facility] MCV 81 77 - 95 fl [facility] MCH Not calculated pg [facility] MCHC Not calculated gm/dl [facility] PLT 60 (L) 156 - 312 [facility] K/cmm RDW-CV 13.8 % [facility] Neutrophils 30.0 % [facility] Lymphocytes 70.0 % [facility] Nucleated RBC's 2 /100 WBC'S [facility] ABS Neutrophils 0.14 (LL) K/cmm [facility] ABS Lymphs 0.31 K/cmm [facility] Cells Counted 50 [facility] RBC Morphology 1+ Teardrop cells [facility] 1+ Poikilocytosis Type of Diff: Manual [facility] Specimen Performing Organization Address City/[facility]/ZIP Code Phon e Number [facility] [address] [place] [address] SERVICES [facility] [address] [place] [address] CREATININE (10/23/2008 4:30 EST) Pathologist Sig nature Creatinine 0.50 0.1 - 0.7 mg/dl [facility] GFR, Calculated Age <18 ml/min/1.73m2 [facility] Specimen Performing Organization Address City/[facility]/ZIP Code Phon e Number [facility] [address] [place] [address] SERVICES [facility] [address] [place] [address] BUN (10/23/2008 4:30 EST) Pathologist Sig nature BUN 17 7 - 18 mg/dl [facility] Specimen Performing Organization Address City/State/ZIP Code Phon e Number [facility] [address] [place] [address] SERVICES [facility] [address] [place] [address] ELECTROLYTES (10/23/2008 4:30 EST) Pathologist Sig nature Sodium 141 136 - 145 mEq/L [facility] Potassium 5.0 3.6 - 5.2 mEq/L [facility] Chloride 104 96 - 110 mEq/L [facility] CO2 27 24 - 32 mEq/L [facility] Specimen Performing Organization Address City/[facility]/ZIP Code Phon e Number [facility] [address] [place] [address] SERVICES [facility] [address] [place] [address] (ABNORMAL) HEMAGRAM AND DIFFERENTIAL (10/22/2008 6:00 EST) WBC 0.29 (LL) 4.5 - 13.5 [facility] K/cmm RBC 2.90 (L) 4.00 - 6.20 [facility] M/cmm Hemoglobin 8.9 (L) 11.5 - 15.5 [facility] gm/dl HCT 26.3 (L) 35.0 - 45.0 % [facility] MCV Not Available 77 - 95 fl [facility] MCH 30.8 pg [facility] MCHC 33.9 gm/dl [facility] PLT 65 (L) 156 - 312 [facility] K/cmm RDW-CV 14.3 % [facility] Neutrophils 46.0 % [facility] Lymphocytes 52.0 % [facility] Eosinophils 2.0 % [facility] ABS Neutrophils 0.13 (LL) K/cmm [facility] ABS Lymphs 0.15 K/cmm [facility] ABS Eosinophils 0.01 K/cmm [facility] Cells Counted 50 [facility] RBC Morphology 1+ Poikilocytosis [facility] 1+ Microcytes Type of Diff: Manual [facility] Specimen Performing Organization Address City/State/ZIP Code Phon e Number [facility] [address] [place] [address] SERVICES [facility] [address] [place] [address] CREATININE (10/22/2008 6:00 EST) Pathologist Sig nature Creatinine 0.50 0.1 - 0.7 mg/dl [facility] GFR, Calculated Age <18 ml/min/1.73m2 [facility] Specimen Performing Organization Address [facility] Phon e Number [facility] [address] [place] [address] SERVICES [facility] [address] [place] [address] BUN (10/22/2008 6:00 EST) Pathologist Sig nature BUN 15 7 - 18 mg/dl [facility] Specimen Performing Organization Address [facility] Phon e Number [facility] [address] [place] [address] SERVICES [facility] [address] [place] [address] ELECTROLYTES (10/22/2008 6:00 EST) Pathologist Sig nature Sodium 140 136 - 145 mEq/L [facility] Potassium 4.5 3.6 - 5.2 mEq/L [facility] Chloride 105 96 - 110 mEq/L [facility] CO2 27 24 - 32 mEq/L [facility] Specimen Performing Organization Address [facility] Phon e Number [facility] [address] [place] [address] SERVICES [facility] [address] [place] [address] (ABNORMAL) HEMAGRAM AND DIFFERENTIAL (10/21/2008 4:20 EST) WBC 0.48 (LL) 4.5 - 13.5 [facility] K/cmm RBC 3.21 (L) 4.00 - 6.20 [facility] M/cmm Hemoglobin Not Available 11.5 - 15.5 [facility] gm/dl HCT 26.4 (L) 35.0 - 45.0 % [facility] MCV 82 77 - 95 fl [facility] MCH Not calculated pg [facility] MCHC Not calculated gm/dl [facility] PLT 20 (LL) 156 - 312 K/cmm [facility] RDW-CV 13.8 % [facility] Neutrophils 44.0 % [facility] Lymphocytes 56.0 % [facility] ABS Neutrophils 0.21 (LL) K/cmm [facility] ABS Lymphs 0.27 K/cmm [facility] Cells Counted 50 [facility] RBC Morphology 1+ Microcytes [facility] Type of Diff: Manual [facility] Specimen Performing Organization Address [facility]/ZIP Code Phon e Number [facility] [address] [place] [address] SERVICES [facility] [address] [place] [address] CREATININE (10/21/2008 4:20 EST) Pathologist Sig nature Creatinine 0.50 0.1 - 0.7 mg/dl [facility] GFR, Calculated Age <18 ml/min/1.73m2 [facility] Specimen Performing Organization Address [facility] Phon e Number [facility] [address] [place] [address] SERVICES [facility] [address] [place] [address] BUN (10/21/2008 4:20 EST) Pathologist Sig nature BUN 13 7 - 18 mg/dl [facility] Specimen Performing Organization Address [facility] Phon e Number [facility] [address] [place] [address] SERVICES [facility] [address] [place] [address] ELECTROLYTES (10/21/2008 4:20 EST) Pathologist Sig nature Sodium 140 136 - 145 mEq/L [facility] Potassium 4.5 3.6 - 5.2 mEq/L [facility] Chloride 104 96 - 110 mEq/L [facility] CO2 26 24 - 32 mEq/L [facility] Specimen Performing Organization Address [facility]/ZIP [facility] Phon e Number [facility] [address] [place] [address] SERVICES [facility] [address] [place] [address] (ABNORMAL) HEMAGRAM AND DIFFERENTIAL (10/20/2008 3:05 EST) WBC 0.82 (LL) 4.5 - 13.5 [facility] K/cmm RBC 3.14 (L) 4.00 - 6.20 [facility] M/cmm Hemoglobin 9.8 (L) 11.5 - 15.5 [facility] gm/dl HCT 27.0 (L) 35.0 - 45.0 % [facility] MCV 83 77 - 95 fl [facility] MCH 31.2 pg [facility] MCHC 36.3 gm/dl [facility] PLT 29 (L) 156 - 312 [facility] K/cmm RDW-CV 14.0 % [facility] Neutrophils 36.0 % [facility] Lymphocytes 64.0 % [facility] ABS Neutrophils 0.30 (LL) K/cmm [facility] ABS Lymphs 0.52 K/cmm [facility] RBC Morphology 1+ Anisocytosis [facility] 1+ Poikilocytosis 1+ Microcytes Type of Diff: Manual [facility] Specimen Performing Organization Address [facility] Phon e Number [facility] [address] [place] [address] SERVICES [facility] [address] [place] [address] CREATININE (10/20/2008 3:05 EST) Creatinine 0.40Comment: 0.1 - 0.7 [facility] Slightly lipemic mg/dl GFR, Calculated Age <18 ml/min/1.73m2 [facility] Slightly lipemic Specimen Performing Organization Address [facility]/ZIP [facility] Phon e Number [facility] [address] [place] [address] SERVICES [facility] [address] [place] [address] (ABNORMAL) BUN (10/20/2008 3:05 EST) Pathologist Sig nature BUN 20 (H)Comment: 7 - 18 mg/dl [facility] Slightly lipemic Specimen Performing Organization Address [facility] Phon e Number [facility] [address] [place] [address] SERVICES [facility] [address] [place] [address] ELECTROLYTES (10/20/2008 3:05 EST) Pathologist Sig nature Sodium 140Comment: 136 - 145 mEq/L [facility] Slightly lipemic Potassium 4.1Comment: 3.6 - 5.2 mEq/L [facility] Slightly lipemic Chloride 106Comment: 96 - 110 mEq/L [facility] Slightly lipemic CO2 26Comment: Slightly 24 - 32 mEq/L [facility] lipemic Specimen Performing Organization Address City/[facility]/ZIP [facility] Phon e Number [facility] [address] [place] [address] SERVICES [facility] [address] [place] [address] (ABNORMAL) HEMAGRAM AND DIFFERENTIAL (10/19/2008 4:09 EST) WBC 0.80 (LL) 4.5 - 13.5 [facility] K/cmm RBC 3.27 (L) 4.00 - 6.20 [facility] M/cmm Hemoglobin Not Available 11.5 - 15.5 [facility] gm/dl HCT 27.2 (L) 35.0 - 45.0 % [facility] MCV 83 77 - 95 fl [facility] MCH Not calculated pg [facility] MCHC Not calculated gm/dl [facility] PLT 45 (L) 156 - 312 [facility] K/cmm RDW-CV 14.0 % [facility] Neutrophils 46.0 % [facility] Lymphocytes 51.0 % [facility] Monocytes 2.0 % [facility] Basophils 1.0 % [facility] ABS Neutrophils 0.37 (LL) K/cmm [facility] ABS Lymphs 0.40 K/cmm [facility] ABS Monocytes 0.02 K/cmm [facility] ABS Basophils 0.01 K/cmm [facility] RBC Morphology 1+ Anisocytosis [facility] 1+ Microcytes 1+ Poikilocytosis Type of Diff: Manual [facility] Specimen Performing Organization Address City/[facility]/ZIP Code Phon e Number [facility] [address] [place] [address] SERVICES [facility] [address] [place] [address] CREATININE (10/19/2008 4:09 EST) Creatinine 0.30Comment: 0.1 - 0.7 [facility] Slightly lipemic mg/dl GFR, Calculated Age <18 ml/min/1.73m2 [facility] Slightly lipemic Specimen Performing Organization Address [facility] Phon e Number [facility] [address] [place] [address] SERVICES [facility] [address] [place] [address] (ABNORMAL) BUN (10/19/2008 4:09 EST) Pathologist Sig nature BUN 21 (H)Comment: 7 - 18 mg/dl [facility] Slightly lipemic Specimen Performing Organization Address [facility] Phon e Number [facility] [address] [place] [address] SERVICES [facility] [address] [place] [address] ELECTROLYTES (10/19/2008 4:09 EST) Pathologist Sig nature Sodium 142Comment: 136 - 145 mEq/L [facility] Slightly lipemic Potassium 4.3Comment: 3.6 - 5.2 mEq/L [facility] Slightly lipemic Chloride 106Comment: 96 - 110 mEq/L [facility] Slightly lipemic CO2 28Comment: Slightly 24 - 32 mEq/L [facility] lipemic Specimen Performing Organization Address [facility] Phon e Number [facility] [address] [place] [address] SERVICES [facility] [address] [place] [address] CREATININE (10/18/2008 4:15 EST) Pathologist Sig nature Creatinine 0.40 0.1 - 0.7 mg/dl [facility] GFR, Calculated Age <18 ml/min/1.73m2 [facility] Specimen Performing Organization Address [facility]/ZIP Code Phon e Number [facility] [address] [place] [address] [facility] [address] [place] [address] (ABNORMAL) BUN (10/18/2008 4:15 EST) Pathologist Sig nature BUN 25 (H) 7 - 18 mg/dl [facility] Specimen Performing Organization Address [facility] Phon e Number [facility] [address] [place] [address] [facility] [address] [place] [address] ELECTROLYTES (10/18/2008 4:15 EST) Pathologist Sig nature Sodium 142 136 - 145 mEq/L [facility] Potassium 4.4 3.6 - 5.2 mEq/L [facility] Chloride 108 96 - 110 mEq/L [facility] LAB CO2 24 24 - 32 mEq/L [facility] Specimen Performing Organization Address City/[facility]/ZIP Code Phon e Number [facility] [address] [place] [address] SERVICES [facility] [address] [place] [address] (ABNORMAL) HEMAGRAM AND DIFFERENTIAL (10/18/2008 4:15 EST) WBC 1.00 (L) 4.5 - 13.5 [facility] K/cmm RBC 3.19 (L) 4.00 - 6.20 [facility] M/cmm Hemoglobin 9.9 (L) 11.5 - 15.5 [facility] gm/dl HCT 27.0 (L) 35.0 - 45.0 % [facility] MCV 85 77 - 95 fl [facility] MCH 30.9 pg [facility] MCHC 36.5 gm/dl [facility] PLT 55 (L) 156 - 312 [facility] K/cmm RDW-CV 14.8 % [facility] Neutrophils 62.0 % [facility] Lymphocytes 37.0 % [facility] Monocytes 1.0 % [facility] ABS Neutrophils 0.62 K/cmm [facility] ABS Lymphs 0.37 K/cmm [facility] ABS Monocytes 0.01 K/cmm [facility] RBC Morphology 1+ Anisocytosis [facility] 1+ Poikilocytosis 1+ Microcytes Type of Diff: Manual [facility] Specimen Performing Organization Address City/[facility]/ZIP Code Phon e Number [facility] [address] [place] [address] SERVICES [facility] [address] [place] [address] (ABNORMAL) HEMAGRAM AND DIFFERENTIAL (10/17/2008 5:00 EST) WBC 0.95 (LL) 4.5 - 13.5 [facility] K/cmm RBC 2.36 (L) 4.00 - 6.20 [facility] M/cmm Hemoglobin Not Available 11.5 - 15.5 [facility] gm/dl HCT 19.6 (LL) 35.0 - 45.0 % [facility] MCV 83 77 - 95 fl [facility] MCH Not calculated pg [facility] MCHC Not calculated gm/dl [facility] PLT 63 (L) 156 - 312 [facility] K/cmm RDW-CV 14.4 % [facility] Neutrophils 71.0 % [facility] Bands 2.0 % [facility] Lymphocytes 26.0 % [facility] Monocytes 1.0 % [facility] ABS Neutrophils 0.67 K/cmm [facility] ABS Bands 0.02 K/cmm [facility] ABS Lymphs 0.25 K/cmm [facility] ABS Monocytes 0.01 K/cmm [facility] RBC Morphology 1+ Anisocytosis [facility] 1+ Poikilocytosis 1+ Microcytes 1+ Teardrop cells Type of Diff: Manual [facility] Specimen Performing Organization Address City/[facility]/ZIP Code Phon e Number [facility] [address] [place] [address] SERVICES [facility] [address] [place] [address] CREATININE (10/17/2008 5:00 EST) Pathologist Sig nature Creatinine 0.40 0.1 - 0.7 mg/dl [facility] GFR, Calculated Age <18 ml/min/1.73m2 [facility] Specimen Performing Organization Address City/State/ZIP Code Phon e Number [facility] [address] [place] [address] SERVICES [facility] [address] [place] [address] BUN (10/17/2008 5:00 EST) Pathologist Sig nature BUN 18 7 - 18 mg/dl [facility] Specimen Performing Organization Address City/[facility]/ZIP [facility] Phon e Number [facility] [address] [place] [address] SERVICES [facility] [address] [place] [address] ELECTROLYTES (10/17/2008 5:00 EST) Pathologist Sig nature Sodium 139 136 - 145 mEq/L [facility] Potassium 4.1 3.6 - 5.2 mEq/L [facility] Chloride 107 96 - 110 mEq/L [facility] CO2 24 24 - 32 mEq/L [facility] Specimen Performing Organization Address [facility] Phon e Number [facility] [address] [place] [address] SERVICES [facility] [address] [place] [address] (ABNORMAL) HEMAGRAM AND DIFFERENTIAL (10/16/2008 4:00 EST) WBC 1.83 (L) 4.5 - 13.5 [facility] K/cmm RBC 2.61 (L) 4.00 - 6.20 [facility] M/cmm Hemoglobin 8.2 (L) 11.5 - 15.5 [facility] gm/dl HCT 22.5 (L) 35.0 - 45.0 % [facility] MCV Not calculated 77 - 95 fl [facility] MCH 31.5 pg [facility] MCHC 36.5 gm/dl [facility] PLT 74 (L) 156 - 312 [facility] K/cmm RDW-CV Not Available % [facility] Neutrophils 90.0 % [facility] Lymphocytes 10.0 % [facility] ABS Neutrophils 1.65 K/cmm [facility] ABS Lymphs 0.18 K/cmm [facility] RBC Morphology 1+ Anisocytosis [facility] 1+ Microcytes 1+ Poikilocytosis 1+ Ovalocytes 1+ Teardrop cells Type of Diff: Manual [facility] Specimen Performing Organization Address [facility] Code Phon e Number [facility] [address] [place] [address] SERVICES [facility] [address] [place] [address] CREATININE (10/16/2008 4:00 EST) Pathologist Sig nature Creatinine 0.50 0.1 - 0.7 mg/dl [facility] GFR, Calculated Age <18 ml/min/1.73m2 [facility] Specimen Performing Organization Address City/[facility]/ZIP Code Phon e Number [facility] [address] [place] [address] SERVICES [facility] [address] [place] [address] BUN (10/16/2008 4:00 EST) Pathologist Sig nature BUN 16 7 - 18 mg/dl [facility] Specimen Performing Organization Address [facility]/ZIP [facility] Phon e Number [facility] [address] [place] [address] SERVICES [facility] [address] [place] [address] ELECTROLYTES (10/16/2008 4:00 EST) Pathologist Sig nature Sodium 139 136 - 145 mEq/L [facility] Potassium 4.1 3.6 - 5.2 mEq/L [facility] Chloride 103 96 - 110 mEq/L [facility] CO2 25 24 - 32 mEq/L [facility] Specimen Performing Organization Address [facility] Phon e Number [facility] [address] [place] [address] SERVICES [facility] [address] [place] [address] BACTERIAL CULTURE, BLOOD (10/15/2008 21:54 EST) Pathologist Sig nature Specimen Description Blood [facility] [place] Result No growth [facility] Report Status Final [facility] [id number] Specimen Performing Organization Address [facility] Phon e Number [facility] [address] [place] [address] SERVICES [facility] [address] [place] [address] FUNGUS CULTURE, BLOOD (10/15/2008 21:54 EST) Specimen Description Blood [facility] [place] Result No fungi isolated [facility] Report Status Final [facility] 11/15/2008 Specimen Performing Organization Address [facility]/ZIP Code Phon e Number [facility] [address] [place] [address] SERVICES [facility] [address] [place] [address] BACTERIAL CULTURE, BLOOD (10/15/2008 21:47 EST) Pathologist Sig nature Specimen Description Blood [facility] [place] Result No growth [facility] Report Status Final [facility] [id number] Specimen Performing Organization Address City/[facility]/ZIP [facility] Phon e Number [facility] [address] [place] [address] SERVICES [facility] [address] [place] [address] FUNGUS CULTURE, BLOOD (10/15/2008 21:47 EST) [facility] [address] Specimen Description Blood [facility] [place] Result No fungi isolated [facility] Report Status Final [facility] 11/15/2008 Specimen Performing Organization Address [facility] Phon e Number [facility] [address] [place] [address] SERVICES [facility] [address] [place] [address] (ABNORMAL) HEMAGRAM AND DIFFERENTIAL (10/15/2008 4:00 EST) [facility] [address] WBC 2.58 (L) 4.5 - 13.5 [facility] K/cmm RBC 2.76 (L) 4.00 - 6.20 [facility] M/cmm Hemoglobin 8.5 (L) 11.5 - 15.5 [facility] gm/dl HCT 23.2 (L) 35.0 - 45.0 % [facility] MCV 84 77 - 95 fl [facility] MCH 30.7 pg [facility] MCHC 36.4 gm/dl [facility] PLT 69 (L) 156 - 312 K/cmm [facility] RDW-CV 14.2 % [facility] Neutrophils 90.0 % [facility] Lymphocytes 7.0 % [facility] Monocytes 3.0 % [facility] ABS Neutrophils 2.32 K/cmm [facility] ABS Lymphs 0.18 K/cmm [facility] ABS Monocytes 0.08 K/cmm [facility] RBC Morphology 1+ Anisocytosis [facility] 1+ Microcytes Type of Diff: Manual [facility] Specimen Performing Organization Address City/[facility]/ZIP [facility] Phon e Number [facility] [address] [place] [address] SERVICES [facility] [address] [place] [address] CREATININE (10/15/2008 4:00 EST) [facility] [address] Creatinine 0.50Comment: 0.1 - 0.7 [facility] Heparinized plasma. mg/dl LAB GFR, Calculated Age <18 ml/min/1.73m2 [facility] Heparinized plasma. LAB Specimen Performing Organization Address [facility]/ZIP Code Phon e Number [facility] [address] [place] [address] SERVICES [facility] [address] [place] [address] BUN (10/15/2008 4:00 EST) Pathologist Sig nature BUN 8Comment: Heparinized 7 - 18 mg/dl [facility] plasma. Specimen Performing Organization Address [facility]/ZIP [facility] Phon e Number [facility] [address] [place] [address] SERVICES [facility] [address] [place] [address] ELECTROLYTES (10/15/2008 4:00 EST) Sodium 138Comment: 136 - 145 mEq/L [facility] Heparinized plasma. Potassium 4.2Comment: 3.6 - 5.2 mEq/L [facility] Heparinized plasma. Chloride 103Comment: 96 - 110 mEq/L [facility] Heparinized plasma. CO2 27Comment: 24 - 32 mEq/L [facility] Heparinized plasma. Specimen Performing Organization Address [facility]/ZIP [facility] Phon e Number [facility] [address] [place] [address] SERVICES [facility] [address] [place] [address] FUNGUS CULTURE, BLOOD (10/14/2008 15:46 EST) Specimen Description Blood [facility] Isolator tube received LAB Result MICROCOCCUS SPECIES [facility] No fungi isolated LAB Report Status Final [facility] 11/15/2008 LAB Specimen Performing Organization Address City/[facility]/ZIP Code Phon e Number [facility] [address] [place] [address] SERVICES [facility] [address] [place] [address] BACTERIAL CULTURE, BLOOD (10/14/2008 15:43 EST) Specimen Description Blood [facility] Pediatric bottle received Result No growth [facility] Report Status Final [facility] [id number] Specimen Performing Organization Address City/[facility]/ZIP Code Phon e Number [facility] [address] [place] [address] SERVICES [facility] [address] [place] [address] CREATININE (10/14/2008 3:32 EST) Pathologist Sig nature Creatinine 0.40 0.1 - 0.7 mg/dl [facility] GFR, Calculated Age <18 ml/min/1.73m2 [facility] Specimen Performing Organization Address City/[facility]/ZIP [facility] Phon e Number [facility] [address] [place] [address] SERVICES [facility] [address] [place] [address] BUN (10/14/2008 3:32 EST) Pathologist Sig nature BUN 8 7 - 18 mg/dl [facility] Specimen Performing Organization Address City/[facility]/ZIP Code Phon e Number [facility] [address] [place] [address] SERVICES [facility] [address] [place] [address] ELECTROLYTES (10/14/2008 3:32 EST) Pathologist Sig nature Sodium 142 136 - 145 mEq/L [facility] Potassium 4.3 3.6 - 5.2 mEq/L [facility] Chloride 105 96 - 110 mEq/L [facility] CO2 27 24 - 32 mEq/L [facility] Specimen Performing Organization Address City/[facility] Phon e Number [facility] [address] [place] [address] SERVICES [facility] [address] [place] [address] (ABNORMAL) HEMAGRAM AND DIFFERENTIAL (10/14/2008 3:32 EST) Pathologist Sig nature WBC 2.75 (L) 4.5 - 13.5 K/cmm [facility] RBC 2.88 (L) 4.00 - 6.20 M/cmm [facility] Hemoglobin 8.8 (L) 11.5 - 15.5 gm/dl [facility] HCT 24.7 (L) 35.0 - 45.0 % [facility] MCV 86 77 - 95 fl [facility] MCH 30.4 pg [facility] MCHC 35.5 gm/dl [facility] PLT 74 (L) 156 - 312 K/cmm [facility] RDW-CV 14.1 % [facility] Neutrophils 60.1 % [facility] Lymphocytes 23.1 % [facility] Monocytes 16.2 % [facility] Eosinophils 0.3 % [facility] Basophils 0.3 % [facility] ABS Neutrophils 1.65 K/cmm [facility] ABS Lymphs 0.63 K/cmm [facility] ABS Monocytes 0.45 K/cmm [facility] ABS Eosinophils 0.01 K/cmm [facility] ABS Basophils 0.01 K/cmm [facility] Type of Diff: Automated [facility] Specimen Performing Organization Address [facility] Phon e Number [facility] [address] [place] [address] SERVICES [facility] [address] [place] [address] GLUCOSE, SERUM (10/13/2008 14:20 EST) Pathologist Sig nature Glucose, Serum 86 70 - 100 mg/dl [facility] Specimen Performing Organization Address [facility] Phon e Number [facility] [address] [place] [address] SERVICES [facility] [address] [place] [address] (ABNORMAL) PHOSPHORUS (10/13/2008 14:20 EST) Pathologist Sig nature Phosphorus 5.5 (H) 4.1 - 5.4 mg/dl [facility] Specimen Performing Organization Address [facility]/ZIP [facility] Phon e Number [facility] [address] [place] [address] SERVICES [facility] [address] [place] [address] (ABNORMAL) MAGNESIUM (10/13/2008 14:20 EST) Pathologist Sig nature Magnesium 1.6 (L) 1.7 - 2.8 mg/dl [facility] Specimen Performing Organization Address [facility] Phon e Number [facility] [address] [place] [address] SERVICES [facility] [address] [place] [address] CREATININE (10/13/2008 14:20 EST) Pathologist Sig nature Creatinine 0.52 0.1 - 0.7 mg/dl [facility] GFR, Calculated Age <18 ml/min/1.73m2 [facility] Specimen Performing Organization Address [facility] Phon e Number [facility] [address] [place] [address] SERVICES [facility] [address] [place] [address] BUN (10/13/2008 14:20 EST) Pathologist Sig nature BUN 10 7 - 18 mg/dl [facility] Specimen Performing Organization Address [facility] Phon e Number [facility] [address] [place] [address] SERVICES [facility] [address] [place] [address] TOTAL & DIRECT BILIRUBIN (10/13/2008 14:20 EST) Pathologist Sig nature Conjugated Bilirubin 0.0 0.0 - 0.3 mg/dl [facility] LA B Unconjugated Bilirubin 0.5 0.1 - 1.1 mg/dl [facility] Bilirubin, Total <0.5 0.0 - 1.4 mg/dl [facility] Specimen Performing Organization Address [facility] Phon e Number [facility] [address] [place] [address] SERVICES [facility] [address] [place] [address] AST (10/13/2008 14:20 EST) Pathologist Sig nature AST 34 23 - 58 U/L [facility] Specimen Performing Organization Address [facility] Phon e Number [facility] [address] [place] [address] SERVICES [facility] [address] [place] [address] (ABNORMAL) ALT (10/13/2008 14:20 EST) Pathologist Sig nature ALT 34 (H) 10 - 25 U/L [facility] Specimen Performing Organization Address [facility] Phon e Number [facility] [address] [place] [address] SERVICES [facility] [address] [place] [address] ELECTROLYTES (10/13/2008 14:20 EST) Pathologist Sig nature Sodium 141 136 - 145 mEq/L [facility] Potassium 4.2 3.6 - 5.2 mEq/L [facility] Chloride 103 96 - 110 mEq/L [facility] CO2 26 24 - 32 mEq/L [facility] Specimen Performing Organization Address City/State/ZIP Code Phon e Number [facility] [address] [place] [address] SERVICES [facility] [address] [place] [address] documented in this encounter Visit Diagnoses Not on filedocumented in this encounter
--- OUTSIDE RECORDS SUMMARY | 2022-05-10 08:31 | XMS_ITS | Encounter Summary ---
:2000 Author Organization [facility] Address [address] [place] [address] Care Team Providers Name Role Phone Unavailable Primary Care Provider Unavailable Encounter Details Date Type Department Care Team Description 10/10/2008 Hospital Encounter [facility] 111 [facility] [address] [place], [place] [id number] [place] [address] [phone] (Wo rk) Social History Tobacco Use Types [...] Cardiology Bg Kelsey MD [address] [facility], [address] [place], [place] [address] (Wo rk) documented as of this encounter Procedures Procedure Name Priority Date/Time Associated Comments Diagnosis COMPLETE BLOOD COUNT Routine 10/13/2008 10:51 Res ults for this AND DIFFERENTIAL EST procedure a re in the results section. COMPLETE BLOOD COUNT Routine 10/10/2008 12:27 Res ults for this AND DIFFERENTIAL EST procedure a re in the results section. documented in this encounter Results (ABNORMAL) HEMAGRAM AND DIFFERENTIAL (10/13/2008 10:51 EST) WBC 3.61 (L) 4.5 - 13.5 [facility] K/cmm RBC 3.26 (L) 4.00 - 6.20 [facility] M/cmm Hemoglobin Not Available 11.5 - 15.5 [facility] gm/dl HCT 27.4 (L) 35.0 - 45.0 % [facility] MCV 84 77 - 95 fl [facility] MCH Not calculated pg [facility] MCHC Not calculated gm/dl [facility] PLT 90 (L) 156 - 312 K/cmm [facility] RDW-CV 13.8 % [facility] Neutrophils 29.0 % [facility] Bands 1.0 % [facility] Lymphocytes 59.0 % [facility] Monocytes 11.0 % [facility] ABS Neutrophils 1.05 K/cmm [facility] ABS Bands 0.04 K/cmm [facility] ABS Lymphs 2.12 K/cmm [facility] ABS Monocytes 0.40 K/cmm [facility] RBC Morphology 1+ Anisocytosis [facility] 1+ Microcytes Type of Diff: Manual [facility] Specimen Performing Organization Address City/State/ZIP Code Phon e Number [facility] [address] [place] [address] SERVICES [facility] [address] [place] [address] (ABNORMAL) HEMAGRAM AND DIFFERENTIAL (10/10/2008 12:27 EST) WBC 2.82 (L) 4.5 - 13.5 [facility] K/cmm LAB RBC 3.29 (L) 4.00 - 6.20 [facility] M/cmm LAB Hemoglobin Not Available 11.5 - 15.5 [facility] gm/dl LAB HCT 27.2 (L) 35.0 - 45.0 [facility] % LAB MCV 83 77 - 95 fl [facility] MCH Not calculated pg [facility] MCHC Not calculated gm/dl [facility] PLT 62 (L) 156 - 312 [facility] K/cmm LAB RDW-CV 13.4 % [facility] Neutrophils 32.0 % [facility] Bands 1.0 % [facility] Lymphocytes 41.0 % [facility] Atyp Lymphs 1.0 % [facility] Monocytes 23.0 % [facility] Metamyelocytes 1.0 % [facility] Myelocytes 1.0 % [facility] ABS Neutrophils 0.90 K/cmm [facility] ABS Bands 0.03 K/cmm [facility] ABS Lymphs 1.15 K/cmm [facility] ABS Atyp Lymphs 0.03 K/cmm [facility] ABS Monocytes 0.65 K/cmm [facility] ABS Metamyelocytes 0.03 K/cmm [facility] ABS Myelocytes 0.03 K/cmm [facility] RBC Morphology 1+ Anisocytosis [facility] 1+ Ovalocytes LAB 1+ Microcytes Comment Reviewed by Dr. DARRIAN Ford LAB Type of Diff: Manual [facility] LAB Specimen Performing Organization Address City/State/ZIP Code Phon e Number [facility] [address] [place] [address] SERVICES [facility] [address] [place] [address] documented in this encounter Visit Diagnoses Not on filedocumented in this encounter
--- OUTSIDE RECORDS SUMMARY | 2022-05-10 08:32 | XMS_ITS | Encounter Summary ---
:2000 Author Organization [facility] Address [address] [place] [address] Care Team Providers Name Role Phone Unavailable Primary Care Provider Unavailable Encounter Details Date Type Department Care Team Description 07/25/2008 Hospital Encounter [facility] - Dudley Rene MD [address] [phone] (Wo rk) Social History Tobacco Use Types [...] Cardiology Bg Kelsey MD 111 [facility], Level 1 [place], [place] [phone] (Wo rk) documented as of this encounter Procedures Procedure Name Priority Date/Time Associated Comments Diagnosis COMPLETE BLOOD COUNT Routine 08/01/2008 9:18 Resu lts for this AND DIFFERENTIAL EDT procedure a re in the results section. COMPREHENSIVE Routine 08/01/2008 9:18 Results for this METABOLIC PANEL (CMP) EDT proced ure are in the results section. BONE MARROW/HEMPATH Routine 08/01/2008 0:00 Resul ts for this CONSULT EDT procedure are i n the results section. documented in this encounter Results (ABNORMAL) HEMAGRAM AND DIFFERENTIAL (08/01/2008 9:18 EDT) WBC 3.44 (L) 4.5 - 13.5 [facility] K/cmm RBC 3.26 (L) 4.00 - 6.20 [facility] M/cmm Hemoglobin 10.3 (L) 11.5 - 15.5 [facility] gm/dl HCT 29.4 (L) 35.0 - 45.0 % [facility] MCV 90 77 - 95 fl [facility] MCH 31.7 pg [facility] MCHC 35.1 gm/dl [facility] PLT 299 156 - 312 K/cmm [facility] RDW-CV 17.4 % [facility] Neutrophils 33.0 % [facility] Lymphocytes 55.0 % [facility] Monocytes 11.0 % [facility] Basophils 1.0 % [facility] ABS Neutrophils 1.14 K/cmm [facility] ABS Lymphs 1.89 K/cmm [facility] ABS Monocytes 0.38 K/cmm [facility] ABS Basophils 0.03 K/cmm [facility] RBC Morphology 1+ Anisocytosis [facility] 1+ Macrocytes 1+ Microcytes Type of Diff: Manual [facility] Specimen Performing Organization Address City/State/ZIP Code Phon e Number [facility] [address] [place] [address] SERVICES [facility] [address] [place] [address] (ABNORMAL) COMPREHENSIVE METABOLIC PANEL (08/01/2008 9:18 EDT) Pathologist Sig nature Potassium 4.2 3.6 - 5.2 mEq/L [facility] Sodium 139 136 - 145 mEq/L [facility] Chloride 105 96 - 110 mEq/L [facility] CO2 23 (L) 24 - 32 mEq/L [facility] Alkaline Phosphatase 175 150 - 350 U/L [facility] Bilirubin, Total <0.5 0.0 - 1.4 mg/dl [facility] AST 46 23 - 58 U/L [facility] ALT 31 (H) 10 - 25 U/L [facility] Albumin 4.6 3.5 - 5.2 g/dl [facility] Total Protein 7.0 5.9 - 7.8 g/dl [facility] Creatinine 0.42 0.1 - 0.7 mg/dl [facility] GFR, Calculated Age <18 ml/min/1.73m2 [facility] BUN 12 7 - 18 mg/dl [facility] Calcium 9.4 8.8 - 11.1 mg/dl [facility] Calculated Calcium 9.2 8.8 - 11.1 mg/dl [facility] Glucose, Serum 101 (H) 70 - 100 mg/dl [facility] Fasting? No [facility] Specimen Performing Organization Address City/State/[facility] Code Phon e Number [facility] [address] [place] [address] SERVICES [facility] [address] [place] [address] BONE MARROW (08/01/2008 0:00 EDT) Pathology Report: BONE MARROW REPORT ? [facility] LAB Reports generated via electr onic interface contain original data; ? however they are lacking the format of the original report. ? Caution should be taken when reading/interpreting unformatted reports. ? Name: ? DIANA ROSS ? Accession #: ? [id number] ? : ? 2000 (Age: 8) ??M ?Collect Date: ? 08/01/2008 ? Location: ? [facility] ? Receive Date: ? 08/01/2008 ? Provider: DUDLEY C HOMANS MD ? Copy to: ?GEORGES AGUSTIN MARY ANN MD ? ELIDA M PATNO MD ? DIAGNOSIS: ? Peripheral blood: ? - Mild normocytic anemia (10 .3 gm/dl). ? - Absolute neutropenia (1,14 0/cmm). ? Bone marrow: ? - Acute myeloid leukemia, tr eated. ??1% blasts. ? TISSUE SUBMITTED: ? Bone marrow (right po sterior iliac crest): Aspirate, filtered particle ? section and smears. ? CLINICAL DATA: ? 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 ??Evaluate for bone marrow involvement. ? PERIPHERAL BLOOD: ? (08/01/08): Hgb 10.3 gm/dl, ??Hct 29.4%, ??RBC 3.26 M/cmm, ??MCV 90 fl, ??MCH ?? 31.7 pg, ??MCHC 35.1 gm/dl, RDW 17.4%, WBC 3,440/cmm, ??with 33% neutrophils, ??55% lymphocytes, 11% monocytes, 1% basophils. ??Platelet count 299,000/cmm. ??Review ?? of the peripheral smear conf irms these findings. ? BONE MARROW: ? Biopsy (decalcified): ??None submitted. ? Filtered particle section: ? ?Consists of one minute bone marrow particle with ? maturing hematopoiesis in al l three cell lines. ??Insufficient for further ? evaluation. ??Hemosiderin 1+ (0-4+) (Prussian Blue stain for Iron). ? Smears: ??Particulate and ce llular. ? Imprints: ??None submitted. ? Granulopoiesis: ?Maturing with minimal cytologic change. ? Erythropoiesis: ?Maturing with mild cytologic change including nuclear ?? to cytoplasmic asynchrony. ? Megakaryocytes: ? Modera te; spectrum of typical forms. ? Other Cells: ?M oderate lymphocytes, rare plasma cells, many ? monocytes/histiocytes. ? Hemosiderin (smears): ?? His tiocytes # (0-4+) (Prussian Blue stain for Iron) ? 500 cell differential count: ? Late g ranulocytes ?32% ?Early granulo cytes ?16% ?Erythroid ser ies ? 29% ?Lymphocytes ? 12% ?Monocytes/his tiocytes ?9% ?Plasma cells ? <1% ?BLASTS ? 1% ?Total ?? 100% ? (Dr. Wally Ponce)/kak ? SPECIAL STUDIES: ? Flow cytometry ([id number]): Mixed hematopoietic elements; no myeloblasts ? detected (see separate Immun opathology report). ? Document reviewed and electr onically signed by: ? RONAN QIU MD ? Report Date: ??2007 14:03 ? By the signature above, the attending physician certifies that he/she has ? personally conducted a gross and/or microscopic examination of the described ? specimens and rendered or co nfirmed the above diagnosis. ? End of Report ? Specimen Performing Organization Address City/State/ZIP Code Phon e Number [facility] [address] [place] [address] SERVICES [facility] [address] [place] [address] documented in this encounter Visit Diagnoses Not on filedocumented in this encounter
--- OUTSIDE RECORDS SUMMARY | 2022-05-10 08:32 | XMS_ITS | Encounter Summary ---
:2000 Author Organization [facility] Address [address] [place] [address] Care Team Providers Name Role Phone Unavailable Primary Care Provider Unavailable Encounter Details Date Type Department Care Team Description 08/01/2008 Hospital Encounter [facility] [place] [place] [facility] 111 [facility] [address] [place], [place] [id number] [place] [phone] (Wo rk) Social History Tobacco Use Types [...] Visit Cardiology Bg Kelsey MD 111 [facility], Level 1 [place], [place] [phone] (Wo rk) documented as of this encounter Procedures Procedure Name Priority Date/Time Associated Comments Diagnosis COMPLETE BLOOD COUNT Routine 09/02/2008 8:22 Resu lts for this AND DIFFERENTIAL EDT procedure a re in the results section. COMPREHENSIVE Routine 09/02/2008 8:22 Results for this METABOLIC PANEL (CMP) EDT proced ure are in the results section. documented in this encounter Results (ABNORMAL) HEMAGRAM AND DIFFERENTIAL (09/02/2008 8:22 EDT) WBC 4.24 (L) 4.5 - 13.5 [facility]/c[facility] RBC 3.50 (L) 4.00 - 6.20 [facility] M/cmm LAB Hemoglobin 10.9 (L) 11.5 - 15.5 [facility] gm/dl LAB HCT 30.3 (L) 35.0 - 45.0 % [facility] MCV 87 77 - 95 fl [facility] MCH 31.0 pg [facility] MCHC 35.9 gm/dl [facility] PLT 370 (H) 156 - 312 [facility] K/cmm LAB RDW-CV 14.2 % [facility] Neutrophils 24.0 % [facility] Lymphocytes 52.0 % [facility] Atyp Lymphs 5.0 % [facility] Monocytes 17.0 % [facility] Metamyelocytes 2.0 % [facility] ABS Neutrophils 1.02 K/cmm [facility] ABS Lymphs 2.21 K/cmm [facility] ABS Atyp Lymphs 0.21 K/cmm [facility] ABS Monocytes 0.72 K/cmm [facility] ABS Metamyelocytes 0.08 K/cmm [facility] RBC Morphology 1+ Anisocytosis [facility] 1+ Poikilocytosis LAB 1+ Hypochromia 1+ Microcytes 1+ Ovalocytes Type of Diff: Manual [facility] Specimen Performing Organization Address City/State/ZIP Code Phon e Number [facility] [address] [place] [address] SERVICES [facility] [address] [place] [address] (ABNORMAL) COMPREHENSIVE METABOLIC PANEL (09/02/2008 8:22 EDT) Pathologist [facility] nature Potassium 4.3 3.6 - 5.2 mEq/L [facility] Sodium 141 136 - 145 mEq/L [facility] Chloride 106 96 - 110 mEq/L [facility] CO2 23 (L) 24 - 32 mEq/L [facility] Alkaline Phosphatase 145 (L) 150 - 350 U/L [facility] Bilirubin, Total <0.5 0.0 - 1.4 mg/dl [facility] AST 34 23 - 58 U/L [facility] ALT 31 (H) 10 - 25 U/L [facility] Albumin 4.6 3.5 - 5.2 g/dl [facility] Total Protein 6.6 5.9 - 7.8 g/dl [facility] Creatinine 0.38 0.1 - 0.7 mg/dl [facility] GFR, Calculated Age <18 ml/min/1.73m2 [facility] BUN 11 7 - 18 mg/dl [facility] Calcium 9.0 8.8 - 11.1 mg/dl [facility] Calculated Calcium 8.8 8.8 - 11.1 mg/dl [facility] Glucose, Serum 95 70 - 100 mg/dl [facility] Fasting? No [facility] Specimen Performing Organization Address City/State/ZIP Code Phon e Number [facility] [address] [place] [address] SERVICES [facility] [address] [place] [address] documented in this encounter Visit Diagnoses Not on filedocumented in this encounter
--- OUTSIDE RECORDS SUMMARY | 2022-05-10 08:32 | XMS_ITS | Encounter Summary ---
:[address] [facility] Address [address] [place] [address] Care Team Providers Name Role Phone Unavailable Primary Care Provider Unavailable Encounter Details Date Type Department Care Team Description 09/02/2008 Hospital En[facility] 111 [facility] [address] [place], [place] [id number] [place] [phone] (Wo rk) Social History Tobacco Use Types Packs/Day Years Used Date Never Assessed Sex Assigned at Date Recorded Not on file documented as of this encounter Discharge Disposition Disposition Code Departure Means Destination Auto Discharge documented in this encounter Plan of Treatment Upcoming Encounters Date Type Specialty Care Team Description 12/18/2022 Ancillary Procedure Cardiology 12/18/2022 Office Visit Cardiology Bg Kelsey MD 111 [facility], Level 1 [place], [place] [phone] (Wo rk) documented as of this encounter Procedures Procedure Name Priority Date/Time Associated Diagnosis Comme nts BONE MARROW/HEMPATH Routine 09/05/2008 0:00 EDT R esults for this CONSULT procedure are i n the results section. BACTERIAL CULTURE, Routine 09/02/2008 11:46 Resul ts for this BLOOD EDT procedure are i n the results section. BACTERIAL CULTURE, Routine 09/02/2008 11:46 Resul ts for this BLOOD EDT procedure are i n the results section. documented in this encounter Results BONE MARROW (09/05/2008 0:00 EDT) Pathology Report: BONE MARROW REPORT ? [facility] LAB Reports generated via Syndiant interface contain original data; ? however they are lacking the format of the original report. ? Caution should be taken when reading/interpreting unformatted reports. ? Name: ? DIANA ROSS ? Accession #: ? [id number] ? : ? 2000 (Age: 8) ??M ?Collect Date: ? 09/05/2008 ? Location: ? [facility] ? Receive Date: ? 09/05/2008 ? Provider: GEORGES VOGT MD ? Copy to: ?KARY KAM CHEMIST STEROIDS ? DIAGNOSIS: ? Peripheral blood: ? - Mild normocytic anemia. ? - Borderline thrombocytosis (345,000/cmm). ? Bone marrow: ? - Cellular with maturing tri lineage hematopoiesis. ? - Treated acute myelo id leukemia, 2% blasts. ??See comment. ? DIAGNOSTIC COMMENT: ? Flow cytometric barbi sis ([id number]) shows no significant population of ? myeloblasts. ??Additional ma veronique was sent for COG study. ??(Dr. Nima Fitzpatrick)/concepción ? TISSUE SUBMITTED: ? Bone marrow (right po sterior iliac crest): Aspirate and smears. ? CLINICAL DATA: ? The patient is a [age]- year-old male with acute myeloid leukemia status post intensification phase I. ??T he bone marrow is performed to assess disease status. The bone marrow is performe d to assess disease status and additional material ?? is sent for COG MRD. ? PERIPHERAL BLOOD: ? (09/05/08): Hgb 11.3 gm/dl, Hct 31.6%, RBC 3.63 M/cmm, MCV 87 fl, MCH 31.1 pg, MCHC 35.7 gm/dl, RDW 14. 4%. ??WBC 4,660/cmm, with 36.0% neutrophils, 46.3% ?? lymphocytes, 17.0% monocytes , 0.3% eosinophils, 0.4% basophils. ??Platelet count 345,000/cmm. ??Review of the peripheral smear confirms these findings. ? BONE MARROW: ? Biopsy: ??None submit mabel. ? Clot section: ??Insufficient for processing. ? Smears: ??Particulate and ce llular. ? Imprints: ??None submitted. ? Granulopoiesis: ?Maturing with minimal cytologic change. ? Erythropoiesis: ?Maturing with mild cytologic change including nuclear ?? to cytoplasmic asynchrony in mid-late stage forms, basophilic stippling, and ? late-stage mitoses. ? Megakaryocytes: ? Many; spectrum of typical forms. ? Other Cells: ?F ew lymphocytes, rare plasma cells, many ? monocytes/histiocytes. ? 500 cell differential count: ? Late g ranulocytes ?41% ?Early granulo cytes ?13% ?Erythroid ser ies ? 28% ?Lymphocytes ? 7% ?Monocytes/his tiocytes ?9% ?BLASTS ? 2% ?Total ?? 100% ? SPECIAL STUDIES: ? Flow cytometry ([id number]): See separate Immunopathology report. ? Document reviewed and electr onically signed by: ? KIMBERLY J EVERTON MD ? Report Date: ??28/ 2008 11:51 ? By the signature above, the attending physician certifies that he/she has ? personally conducted a gross and/or microscopic examination of the described ? specimens and rendered or co nfirmed the above diagnosis. ? End of Report ? Specimen Performing Organization Address City/[facility] Phon e Number [facility] [address] [place] [address] SERVICES [facility] [address] [place] [address] BACTERIAL CULTURE, BLOOD (09/02/2008 11:46 EDT) [facility] nature Specimen Description Blood [facility] white Result No growth [facility] Report Status Final [facility] [id number] Specimen Performing Organization Address City/[facility] Phon e Number [facility] [address] [place] [address] SERVICES [facility] [address] [place] [address] BACTERIAL CULTURE, BLOOD (09/02/2008 11:46 EDT) Pathologist Sig nature Specimen Description Blood [facility] Red Result No growth [facility] Report Status Final [facility] [id number] Specimen Performing Organization Address City/State/ZIP Code Phon e Number [facility] [address] [place] [address] SERVICES [facility] [address] [place] [address] documented in this encounter Visit Diagnoses Not on filedocumented in this encounter
--- OUTSIDE RECORDS SUMMARY | 2022-05-10 08:32 | XMS_ITS | Encounter Summary ---
:[address] [facility] Address [address] [place] [address] Care Team Providers Name Role Phone Unavailable Primary Care Provider Unavailable Encounter Details Date Type Department Care Team Description 08/01/2008 - Hospital Encounter [facility] Ryan Abel, 08/25/2008 [facility] Pediatric Juliet Velasquez MD [address] [facility] [address] [id number] Social History Tobacco Use Types Packs/Day Years Used Date Never Assessed Sex Assigned at Date Recorded Not on file documented as of this encounter Discharge Summaries Eduardo Sharp MD, MD - 05/20/2009 [id number] EDT HISS DISCHARGE SUMMARY ADDRESS: [address] [place] [id number] PHONE: [phone] ATTENDING PHYSICIAN: HAYDER GIBSON MD ADDRESS: [facility] [address] [place] [address] PHONE: [phone] REFERRING PHYSICIAN: ELLE AGUILAR MD ADDRESS: [facility] [address] [place] [address] PHONE: [phone] ADMISSION DATE: 08/01/08 SERVICE: PED. MEDICINE TRANSFER TO : DISCHARGE DATE: 08/25/08 SERVICE: PED. 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 SECONDARY/FINAL DIAGNOSIS: Bacteremia while neutropenic Neutropenia PRINCIPAL PROCEDURE: Lumbar puncture CONDITION AT DISCHARGE: Stable RELEVANT STUDIES: ECG - normal, obtainted to get a baseline during chemotherapy Cardiac echo - normal, obtained to get a baseline during chemotherapy DISPOSITION AT DISCHARGE: Home with home health services - Nursing ALLERGIES: The following allergies were reported by the patient or discovered and documented during the hospital stay: 1) ALLERGY: AMPHOTERICIN 2) ALLERGY: VORICONAZOLE MEDICATIONS: IMPORTANT INFORMATION ABOUT YOUR [...] FRIDAY, FRIDAY, BY MOUTH 3) HEPARIN FLUSH 25UNITS INJECTION, ONCE A DAY, BY CENTRAL LINE, SPECIAL SCHEDULE 4) PROTONIX 40MG TABLET, ONCE A DAY, BY MOUTH 5) CHLORHEXIDINE GLUCONATE / (peridex) 15ML SOLUTION, EVERY 12 HOURS, SWISH & *SPIT* 6) VANCOMYCIN 500MG INJECTION, EVERY 8 HOURS, INTRAVENOUSLY 7) ACETAMINOPHEN / (tylenol) 375MG SOLUTION, EVERY 4 HOURS, BY MOUTH, NEEDED MEDICATIONS YOU WERE TAKING PRIOR TO ADMISSION THAT SHOULD BE STOPPED: NONE HERBAL REMEDIES, NUTRITIONAL SUPPLEMENTS, AND [id number] MEDICATIONS that have not been prescribed by a physician may have significant adverse side effect or may interfere with the medications that have been prescribed for you. If you are taking herbal remedies, nutritional supplements, or [id number] medications you are strongly encouraged to discontinue their use until you have discussed your use of these products with your primary care physician. UPON ADMISSION YOU LISTED THE FOLLOWING HERBAL/SUPPLEMENTS/OTC: NONE VITAL SIGNS/MEASUREMENTS: Weight at admission: 25kg HOSPITAL COURSE: Diana is a 8-year-old boy with AML diagnosed on 05/12/08 after presenting to his PCP with pallor and fatigue x 3 weeks. He is being treated on COG study [id number] and is on the gemtuzumab arm. He was admitted on 08/01 for intensification I, which consisted of IT AraC on day 1, and IV AraC and IV etoposide on days 1-5. Geronimo subsquently became neuropenic, and his ANC went to zero. A cold sore developed on his lip on 08/16. He became febrile on 08/19. Blood and urine cultures were obtained. He was started on vencomycin, ceftazadime, and acyclovir. Blood cultures were postive for reina-hemolytic strep, and coverage was narrowed to vancomycin as sole therapy. He required transfusions of PRBCs and platelets x2 to keep his counts above set goals (Hgb>7.5, Plt>15). By 08/23 his ANC began to recover. At discharge his CBC was WCC 3.19, Hgb 9.8, Hct 26.9. He is being discharged home to finish his ten day course of vancomycin (500mg IV q8hrs) which will go through 08/29. CBCs will be drawn at home on 08/29 and 09/01. He will return for admission for chemotherapy in 1-2 weeks. HOME CARE SKILLED SERVICES: Registered Nurse Referral - assist with IV abx, CL drsg changes Intravenous Therapy Referral SYMPTOMS TO CALL YOUR DOCTOR ABOUT: Temperature greater than 100.4 degrees Difficulty breathing Breathing fast Change in mental status FOLLOW UP APPOINTMENTS: You will be readmitted to [facility] in 1-2 weeks for chemotherapy. POST DISCHARGE LAB REQUISITION - Bring this request with you to the lab. TO BE DONE ON: 08/29 and 09/01 REASON FOR TEST(S)/DIAGNOSIS: assess for anemia, neutropenia ORDERING RESIDENT: EDUARDO SHARP MD CALL RESULTS TO PROVIDER: génesis heme-onc quality assurance monitor physician PHONE: [phone] CBC with diff cc: Patient chart ELIDA DUNAWAY MD [facility] [address] [place] [address] END OF REPORT D: EDUARDO SHARP MD A - ZOHDocument ID: [id number] documented in this encounter Discharge Disposition Disposition Code Departure Means Destination Home-Health Care Svc documented in this encounter Plan of Treatment Upcoming Encounters Date Type Specialty Care Team Description 12/18/2022 Ancillary Procedure Cardiology 12/18/2022 Office Visit Cardiology Bg Kelsey MD [address] [facility], [facility], [facility] [address] [place], [place] [phone] (Wo rk) documented as of this encounter Procedures Procedure Name Priority Date/Time Associated Comments Diagnosis COMPLETE BLOOD COUNT Routine 08/25/2008 6:00 Resu lts for this AND DIFFERENTIAL EDT procedure a re in the results section. ECHOCARDIOGRAM 08/24/2008 13:20 Results f or this EDT procedure are i n the results section. COMPLETE BLOOD COUNT Routine 08/24/2008 4:00 Resu lts for this AND DIFFERENTIAL EDT procedure a re in the results section. HOLD Routine 08/23/2008 6:00 Results for this EDT procedure are i n the results section. HOLD PURPLE TOP Routine 08/23/2008 6:00 Results f or this EDT procedure are i n the results section. TESTS ADDED BY PHONE Routine 08/23/2008 6:00 Resu lts for this EDT procedure are i n the results section. COMPLETE BLOOD COUNT Routine 08/23/2008 6:00 Resu lts for this AND DIFFERENTIAL EDT procedure a re in the results section. BUN Routine 08/23/2008 6:00 Results for this EDT procedure are i n the results section. CREATININE Routine 08/23/2008 6:00 Results for this EDT procedure are i n the results section. ELECTROLYTES Routine 08/23/2008 6:00 Results for this EDT procedure are i n the results section. COMPLETE BLOOD COUNT Routine 08/22/2008 4:30 Resu lts for this AND DIFFERENTIAL EDT procedure a re in the results section. FUNGUS CULTURE, BLOOD Routine 08/21/2008 9:30 Res ults for this EDT procedure are i n the results section. BACTERIAL CULTURE, Routine 08/21/2008 9:30 Result s for this BLOOD EDT procedure are i n the results section. FUNGUS CULTURE, BLOOD Routine 08/21/2008 9:00 Res ults for this EDT procedure are i n the results section. BACTERIAL CULTURE, Routine 08/21/2008 9:00 Result s for this BLOOD EDT procedure are i n the results section. COMPLETE BLOOD COUNT Routine 08/21/2008 4:15 Resu lts for this AND DIFFERENTIAL EDT procedure a re in the results section. BUN Routine 08/20/2008 12:30 Results for this EDT procedure are i n the results section. ALT Routine 08/20/2008 12:30 Results for this EDT procedure are i n the results section. AST Routine 08/20/2008 12:30 Results for this EDT procedure are i n the results section. PROTEIN, TOTAL Routine 08/20/2008 12:30 Results f or this EDT procedure are i n the results section. CREATININE Routine 08/20/2008 12:30 Results for this EDT procedure are i n the results section. BILIRUBIN, TOTAL Routine 08/20/2008 12:30 Results for this EDT procedure are i n the results section. ALBUMIN Routine 08/20/2008 12:30 Results for this EDT procedure are i n the results section. ELECTROLYTES Routine 08/20/2008 12:30 Results for this EDT procedure are i n the results section. COMPLETE BLOOD COUNT Routine 08/20/2008 6:27 Resu lts for this AND DIFFERENTIAL EDT procedure a re in the results section. FUNGUS CULTURE, BLOOD Routine 08/19/2008 22:10 Re sults for this EDT procedure are i n the results section. FUNGUS CULTURE, BLOOD Routine 08/19/2008 22:10 Re sults for this EDT procedure are i n the results section. BACTERIAL CULTURE, Routine 08/19/2008 22:10 Resul ts for this BLOOD EDT procedure are i n the results section. BACTERIAL CULTURE, Routine 08/19/2008 22:10 Resul ts for this BLOOD EDT procedure are i n the results section. COMPLETE BLOOD COUNT Routine 08/19/2008 4:30 Resu lts for this AND DIFFERENTIAL EDT procedure a re in the results section. COMPLETE BLOOD COUNT Routine 08/18/2008 4:20 Resu lts for this AND DIFFERENTIAL EDT procedure a re in the results section. BUN Routine 08/18/2008 4:20 Results for this EDT procedure are i n the results section. ALT Routine 08/18/2008 4:20 Results for this EDT procedure are i n the results section. AST Routine 08/18/2008 4:20 Results for this EDT procedure are i n the results section. ALKALINE PHOSPHATASE Routine 08/18/2008 4:20 Resu lts for this EDT procedure are i n the results section. CREATININE Routine 08/18/2008 4:20 Results for this EDT procedure are i n the results section. BILIRUBIN, TOTAL Routine 08/18/2008 4:20 Results for this EDT procedure are i n the results section. ELECTROLYTES Routine 08/18/2008 4:20 Results for this EDT procedure are i n the results section. COMPLETE BLOOD COUNT Routine 08/17/2008 4:30 Resu lts for this AND DIFFERENTIAL EDT procedure a re in the results section. COMPLETE BLOOD COUNT Routine 08/16/2008 4:15 Resu lts for this AND DIFFERENTIAL EDT procedure a re in the results section. COMPLETE BLOOD COUNT Routine 08/15/2008 4:30 Resu lts for this AND DIFFERENTIAL EDT procedure a re in the results section. BUN Routine 08/15/2008 4:30 Results for this EDT procedure are i n the results section. ALT Routine 08/15/2008 4:30 Results for this EDT procedure are i n the results section. AST Routine 08/15/2008 4:30 Results for this EDT procedure are i n the results section. ALKALINE PHOSPHATASE Routine 08/15/2008 4:30 Resu lts for this EDT procedure are i n the results section. CREATININE Routine 08/15/2008 4:30 Results for this EDT procedure are i n the results section. BILIRUBIN, Routine 08/15/2008 4:30 Result s for this EDT procedure are i n the results section. ELECTROLYTES Routine 08/15/2008 4:30 Results for this EDT procedure are i n the results section. COMPLETE BLOOD COUNT Routine 08/14/2008 4:33 Resu lts for this AND DIFFERENTIAL EDT procedure a re in the results section. COMPLETE BLOOD COUNT Routine 08/13/2008 6:00 Resu lts for this AND DIFFERENTIAL EDT procedure a re in the results section. COMPLETE BLOOD COUNT Routine 08/12/2008 5:00 Resu lts for this AND DIFFERENTIAL EDT procedure a re in the results section. COMPLETE BLOOD COUNT Routine 08/11/2008 6:30 Resu lts for this AND DIFFERENTIAL EDT procedure a re in the results section. TOTAL & DIRECT Routine 08/11/2008 6:30 Results fo r this BILIRUBIN EDT procedure are i n the results section. BUN Routine 08/11/2008 6:30 Results for this EDT procedure are i n the results section. ALT Routine 08/11/2008 6:30 Results for this EDT procedure are i n the results section. AST Routine 08/11/2008 6:30 Results for this EDT procedure are i n the results section. ALKALINE PHOSPHATASE Routine 08/11/2008 6:30 Resu lts for this EDT procedure are i n the results section. CREATININE Routine 08/11/2008 6:30 Results for this EDT procedure are i n the results section. ALBUMIN Routine 08/11/2008 6:30 Results for this EDT procedure are i n the results section. ELECTROLYTES Routine 08/11/2008 6:30 Results for this EDT procedure are i n the results section. COMPLETE BLOOD COUNT Routine 08/09/2008 9:25 Resu lts for this AND DIFFERENTIAL EDT procedure a re in the results section. BUN Routine 08/08/2008 4:15 Results for this EDT procedure are i n the results section. ALT Routine 08/08/2008 4:15 Results for this EDT procedure are i n the results section. AST Routine 08/08/2008 4:15 Results for this EDT procedure are i n the results section. ALKALINE PHOSPHATASE Routine 08/08/2008 4:15 Resu lts for this EDT procedure are i n the results section. CREATININE Routine 08/08/2008 4:15 Results for this EDT procedure are i n the results section. BILIRUBIN, TOTAL Routine 08/08/2008 4:15 Results for this EDT procedure are i n the results section. ELECTROLYTES Routine 08/08/2008 4:15 Results for this EDT procedure are i n the results section. COMPLETE BLOOD COUNT Routine 08/07/2008 3:15 Resu lts for this AND DIFFERENTIAL EDT procedure a re in the results section. COMPLETE BLOOD COUNT Routine 08/05/2008 3:40 Resu lts for this AND DIFFERENTIAL EDT procedure a re in the results section. TOTAL & DIRECT Routine 08/05/2008 3:40 Results fo r this BILIRUBIN EDT procedure are i n the results section. BUN Routine 08/05/2008 3:40 Results for this EDT procedure are i n the results section. ALT Routine 08/05/2008 3:40 Results for this EDT procedure are i n the results section. AST Routine 08/05/2008 3:40 Results for this EDT procedure are i n the results section. ALKALINE PHOSPHATASE Routine 08/05/2008 3:40 Resu lts for this EDT procedure are i n the results section. CREATININE Routine 08/05/2008 3:40 Results for this EDT procedure are i n the results section. ELECTROLYTES Routine 08/05/2008 3:40 Results for this EDT procedure are i n the results section. COMPLETE BLOOD COUNT Routine 08/04/2008 4:50 Resu lts for this AND DIFFERENTIAL EDT procedure a re in the results section. TOTAL & DIRECT Routine 08/04/2008 4:50 Results fo r this BILIRUBIN EDT procedure are i n the results section. BUN Routine 08/04/2008 4:50 Results for this EDT procedure are i n the results section. ALT Routine 08/04/2008 4:50 Results for this EDT procedure are i n the results section. AST Routine 08/04/2008 4:50 Results for this EDT procedure are i n the results section. ALKALINE PHOSPHATASE Routine 08/04/2008 4:50 Resu lts for this EDT procedure are i n the results section. CREATININE Routine 08/04/2008 4:50 Results for this EDT procedure are i n the results section. ELECTROLYTES Routine 08/04/2008 4:50 Results for this EDT procedure are i n the results section. COMPLETE BLOOD COUNT Routine 08/03/2008 5:01 Resu lts for this AND DIFFERENTIAL EDT procedure a re in the results section. TOTAL & DIRECT Routine 08/03/2008 5:01 Results fo r this BILIRUBIN EDT procedure are i n the results section. BUN Routine 08/03/2008 5:01 Results for this EDT procedure are i n the results section. ALT Routine 08/03/2008 5:01 Results for this EDT procedure are i n the results section. AST Routine 08/03/2008 5:01 Results for this EDT procedure are i n the results section. ALKALINE PHOSPHATASE Routine 08/03/2008 5:01 Resu lts for this EDT procedure are i n the results section. CREATININE Routine 08/03/2008 5:01 Results for this EDT procedure are i n the results section. ELECTROLYTES Routine 08/03/2008 5:01 Results for this EDT procedure are i n the results section. FUNGUS CULTURE, BLOOD Routine 08/02/2008 20:45 Re sults for this EDT procedure are i n the results section. FUNGUS CULTURE, BLOOD Routine 08/02/2008 20:45 Re sults for this EDT procedure are i n the results section. BACTERIAL CULTURE, Routine 08/02/2008 20:45 Resul ts for this BLOOD EDT procedure are i n the results section. BACTERIAL CULTURE, Routine 08/02/2008 20:45 Resul ts for this BLOOD EDT procedure are i n the results section. CT CHEST WO CONTRAST 08/02/2008 9:52 Resu lts for this EDT procedure are i n the results section. COMPLETE BLOOD COUNT Routine 08/02/2008 5:20 Resu lts for this AND DIFFERENTIAL EDT procedure a re in the results section. TOTAL & DIRECT Routine 08/02/2008 5:20 Results fo r this BILIRUBIN EDT procedure are i n the results section. BUN Routine 08/02/2008 5:20 Results for this EDT procedure are i n the results section. ALT Routine 08/02/2008 5:20 Results for this EDT procedure are i n the results section. AST Routine 08/02/2008 5:20 Results for this EDT procedure are i n the results section. ALKALINE PHOSPHATASE Routine 08/02/2008 5:20 Resu lts for this EDT procedure are i n the results section. CREATININE Routine 08/02/2008 5:20 Results for this EDT procedure are i n the results section. ELECTROLYTES Routine 08/02/2008 5:20 Results for this EDT procedure are i n the results section. HOLD GREEN TOP Routine 08/01/2008 21:00 Results f or this EDT procedure are i n the results section. COMPLETE BLOOD COUNT Routine 08/01/2008 21:00 Res ults for this AND DIFFERENTIAL EDT procedure a re in the results section. TOTAL & DIRECT Routine 08/01/2008 21:00 Results f or this BILIRUBIN EDT procedure are i n the results section. BUN Routine 08/01/2008 21:00 Results for this EDT procedure are i n the results section. ALT Routine 08/01/2008 21:00 Results for this EDT procedure are i n the results section. AST Routine 08/01/2008 21:00 Results for this EDT procedure are i n the results section. PHOSPHORUS Routine 08/01/2008 21:00 Results for this EDT procedure are i n the results section. MAGNESIUM Routine 08/01/2008 21:00 Results for this EDT procedure are i n the results section. GLUCOSE, SERUM Routine 08/01/2008 21:00 Results f or this EDT procedure are i n the results section. CREATININE Routine 08/01/2008 21:00 Results for this EDT procedure are i n the results section. ELECTROLYTES Routine 08/01/2008 21:00 Results for this EDT procedure are i n the results section. PRELIMINARY BONE MARROW Routine 08/01/2008 14:30 Results for this EDT procedure are i n the results section. FLOW CYTOMETRY Routine 08/01/2008 14:30 Results f or this EDT procedure are i n the results section. CELL COUNT,CSF Routine 08/01/2008 14:00 Results f or this EDT procedure are i n the results section. FLUID DIFFERENTIAL Routine 08/01/2008 14:00 Resul ts for this EDT procedure are i n the results section. TOTAL PROTEIN, CSF Routine 08/01/2008 14:00 Resul ts for this EDT procedure are i n the results section. GLUCOSE CSF Routine 08/01/2008 14:00 Results for this EDT procedure are i n the results section. documented in this encounter Results (ABNORMAL) HEMAGRAM AND DIFFERENTIAL (08/25/2008 6:00 EDT) WBC 2.39 (L) 4.5 - 13.5 [facility] K/cmm LAB RBC 3.19 (L) 4.00 - 6.20 [facility] Hemoglobin 9.8 (L) 11.5 - 15.5 [facility] gm/dl LAB HCT 26.9 (L) 35.0 - 45.0 % [facility] MCV 84 77 - 95 fl [facility] MCH 30.7 pg [facility] MCHC 36.4 gm/dl [facility] PLT 74 (L) 156 - 312 [facility] RDW-CV 13.2 % [facility] Neutrophils 1.0 % [facility] Bands 1.0 % [facility] Lymphocytes 79.0 % [facility] Atyp Lymphs 1.0 % [facility] Monocytes 17.0 % [facility] Metamyelocytes 1.0 % [facility] ABS Neutrophils 0.02 (LL) K/cmm [facility] ABS Bands 0.02 K/cmm [facility] ABS Lymphs 1.90 K/cmm [facility] ABS Atyp Lymphs 0.02 K/cmm [facility] ABS Monocytes 0.41 K/cmm [facility] ABS Metamyelocytes 0.02 K/cmm [facility] RBC Morphology 1+ Anisocytosis [facility] 1+ Ovalocytes LAB 1+ Microcytes Type of Diff: Manual [facility] Specimen Performing Organization Address City/State/ZIP Code Phon e Number [facility] [address] [phone] SERVICES [facility] [address] [place] [address] ECHOCARDIOGRAM (08/24/2008 13:20 EDT) Specimen Narrative CARDIOLOGY - 04/17/2009 11:47 EDT Patient Name: DIANA PERRIN Chart Number: [id number] Site Location: Date of Appt: August 24 8, 1:20 PM Pediatric Echocardiogram Report - Addend um ?? Demographics and Visit Data: : 2000. ??Age: 8y/3m/20d. ??BSA (m 2): 0.86. ??Height (cm): 126. ?? Weight (kg): 21.7. ??BMI (kg/m 2): 13.67 . ??Patient location: [place] [address]. ?? Height Centile: 95.04. ??Weight Centile: 54.69. ??Person requesting test: SARITA DERAS MD. ?? Websphere Architect: Lexy Payan. ??Reason for test: color/pulse Doppler. ?? Referral diagnosis: leukemia on therapy. ??Procedure Description: ECHOCARDIOGRAM. ?? Summary: Status post adriamycin therapy. Normal left ventricular size, wall thick ness and systolic function. No significant mitral regurgitation or a ortic regurgitation. No intracardiac masses seen. Compared with last study, the left ventr icular size is relatively smaller, possibly reflecting volume status. Atrial Situs: Solitus Ventricular Situs: D - Looped Arterial Situs: Solitus Findings: ?? Veins and Atria: ?? (No abnormalities seen) ?? A-V Canal: ?? >> Mitral regurgitation, ruled out No significant mitral regurgitation. ? Ventricles: ?? >> Global left ventricular dysfunction, ruled out Normal left ventricular size, wall thick ness and systolic function. ?? >> Left ventricular dilation or enlargem ent, ruled out >> Normal Right Ventricle >> Normal LV Wall Motion ?? Conotruncus: ?? >> Aortic regurgitation, ruled out No significant aortic regurgitation seen . ?? >> Normal Pulmonary Valve ?? Great Arteries: ?? >> Normal Aorta >> Normal Aortic Arch ?? Pericardium: ?? (No abnormalities seen) ?? Other: ?? >> S/p adriamycin therapy >> Intracardiac mass, ruled out No intracardiac mass or thrombus seen. ? Measures: ?? 2D: ?? Name ? Value ?Units ?? LV Diastolic Volume Index (Bullet) ? 89.23 ?mL/m 2 ? M-Mode: ?? Name ? Value ?Units ?Z-Score ?Min ?Max ?? LV Diastolic Septal Thickness ? 0.58 ? cm ? -1.04 ? 0.5 ? 0.94 ?? LV Diastolic Dimension ? 4.26 ? cm ? 2.03 ?3.07 ?4.24 ?? LV Diastolic Wall Thickness ? 0.51 ? cm ? -1.94 ? 0.51 ?0.84 ?? LV Systolic Dimension ? 2.86 ? cm ? 1.99 ?1.9 ? 2.85 ?? LV Fractional Shortening ? 32.86 ?% ?-0.87 ? 30.16 ?? 39.82 ? LV Systolic Function: ?? Name ? Value ?Units ?Z-Score ?Min ?Max ?? LV Diastolic Volume (Bullet) ? 76.74 ?mL ? 2.35 ?31.94 ?? 72.43 ?? LV Systolic Volume (Bullet) ? 43.39 ?mL ? 4.01 ?9.16 ?28.98 ?? LV Ejection Fraction (Bullet) ? 43.46 ?% ?-2.89 ? 50. ? 78.6 ?? 2D LV Mass ? 65.70 ?g ?2.42 ?23.83 ?? 60.65 ?? 2D LV Volume Index ? 89.24 ? 2D LV Mass Index ? 76.39 ?g/m 2 ? Endocardial FS ? 32.86 ?% ?-0.87 ? 30.16 ?? 39.82 ?? FS Vs Stress ? 32.86 ?% ? Cardiac Geometry: ?? Name ? Value ?Units ?Z-Score ?Min ?Max ?? M-Mode LV Mass ? 63.68 ?g ?0. ?42.97 ?? 94.55 ?? M-Mode LV Mass Index ? 74.05 ?g/m 2 ? LV Diastolic Long Jefferson Epicardial Diamet er ? 6.81 ? cm ? LV Diastolic Epicardial Cross-Sectional Area ? 25.10 ?cm 2 ? LV Systolic Long Jefferson Diameter ? 5.27 ? cm ? LV Systolic Cross-sectional Area ? 9.88 ? cm 2 ? LV Diastolic Long [place] Diameter ? 5.98 ? cm ? 0.84 ?4.69 ?6.5 ?? LV Diastolic Cross-sectional Area ? 15.40 ?cm 2 ? LV Midwall Diastolic Dimension ? 4.77 ? cm ? M-Mode Left Atrial Diameter ? 2.3 ?cm ? M-Mode LV Mass / Height ? 50.54 ?g/m ? M-Mode LV Mass / Height 2.7 ? 34.12 ?g/m ?19.4 ?38.6 ? Aorta: ?? Name ? Value ?Units ?Z-Score ?Min ?Max ?? Ao Root Diameter ? 1.93 ? cm ? 0.39 ?1.43 ?2.26 ?? [place]'s Name: ALY LEAL MD Addendum ?Report Date/time of reading: Apr 17 2009 - 11:47:11 AM Report created at 11:47:24 AM on Friday, April 17, 2009 Procedure Note Duglas Hoskins MD - 04/17/2009 Patient Name: DIANA PERRIN Chart Number: [id number] Site Location: Date of Appt: August 24 8, 1:20 PM Pediatric Echocardiogram Report - Addend Demographics and Visit Data: : 2000. Age: 8y/3m/20d. BSA (m 2 ): 0.86. Height (cm): 126. Weight (kg): 21.7. BMI (kg/m 2): 13.67. Patient location: [place] [address]. Height Centile: 95.04. Weight Centile: 5 4.69. Person requesting test: SARITA DERAS MD. Websphere Architect: Lexy Payan. Reason fo r test: color/pulse Doppler. Referral diagnosis: leukemia on therapy. Procedure Description: ECHOCARDIOGRAM. Summary: Status post adriamycin therapy. Normal left ventricular size, wall thick ness and systolic function. No significant mitral regurgitation or a ortic regurgitation. No intracardiac masses seen. Compared with last study, the left ventr icular size is relatively smaller, possibly reflecting volume status. Atrial Situs: Solitus Ventricular Situs: D - Looped Arterial Situs: Solitus Findings: Veins and Atria: (No abnormalities seen) A-V Canal: >> Mitral regurgitation, ruled out No significant mitral regurgitation. Ventricles: >> Global left ventricular dysfunction, ruled out Normal left ventricular size, wall thick ness and systolic function. >> Left ventricular dilation or enlargem ent, ruled out >> Normal Right Ventricle >> Normal LV Wall Motion Conotruncus: >> Aortic regurgitation, ruled out No significant aortic regurgitation seen . >> Normal Pulmonary Valve Great Arteries: >> Normal Aorta >> Normal Aortic Arch Pericardium: (No abnormalities seen) Other: >> S/p adriamycin therapy >> Intracardiac mass, ruled out No intracardiac mass or thrombus seen. Measures: 2D: Name Value Units LV Diastolic Volume Index (Bullet) 89.23 mL/m 2 M-Mode: Name Value Units Z-Score Min Max LV Diastolic Septal Thickness 0.58 cm -1.04 0.5 0.94 LV Diastolic Dimension 4.26 cm 2.03 3.07 4.24 LV Diastolic Wall Thickness 0.51 cm -1.94 0.51 0.84 LV Systolic Dimension 2.86 cm 1.99 1.9 2.85 LV Fractional Shortening 32.86 % -0.87 30.16 39.82 LV Systolic Function: Name Value Units Z-Score Min Max LV Diastolic Volume (Bullet) 76.74 mL 2.35 31.94 72.43 LV Systolic Volume (Bullet) 43.39 mL 4.01 9.16 28.98 LV Ejection Fraction (Bullet) 43.46 % -2.89 50. 78.6 2D LV Mass 65.70 g 2.42 23.83 60.65 2D LV Volume Index 89.24 2D LV Mass Index 76.39 g/m 2 Endocardial FS 32.86 % -0.87 30.16 39.82 FS Vs Stress 32.86 % Cardiac Geometry: Name Value Units Z-Score Min Max M-Mode LV Mass 63.68 g 0. 42.97 94.55 M-Mode LV Mass Index 74.05 g/m 2 LV Diastolic Long [place] Epicardial Diamet er 6.81 cm LV Diastolic Epicardial Cross-Sectional Area 25.10 cm 2 LV Systolic Long [place] Diameter 5.27 cm LV Systolic Cross-sectional Area 9.88 cm 2 LV Diastolic Long [place] Diameter 5.98 cm 0.84 4.69 6.5 LV Diastolic Cross-sectional Area 15.40 cm 2 LV Midwall Diastolic Dimension 4.77 cm M-Mode Left Atrial Diameter 2.3 cm M-Mode LV Mass / Height 50.54 g/m M-Mode LV Mass / Height 2.7 34.12 g/m 19.4 38.6 Aorta: Name Value Units Z-Score Min Max Ao Root Diameter 1.93 cm 0.39 1.43 2.26 [place]'s Name: MEL PAINTING,ALY Addendum Report Date/time of reading: Apr 17 2009 - 11:47:11 AM Report created at 11:47:24 AM on Friday, April 17, 2009 Performing Organization Address City/State/ZIP Code Phon e Number [facility] CARDIOLOGY (ABNORMAL) HEMAGRAM AND DIFFERENTIAL (08/24/2008 4:00 EDT) WBC 1.98 (L) 4.5 - 13.5 [facility] K/cmm RBC 3.48 (L) 4.00 - 6.20 [facility] M/cmm Hemoglobin 9.8 (L) 11.5 - 15.5 [facility] gm/dl HCT 29.2 (L) 35.0 - 45.0 % [facility] MCV 84 77 - 95 fl [facility] MCH 28.2 pg [facility] MCHC 33.6 gm/dl [facility] PLT 74 (L) 156 - 312 [facility] K/cmm RDW-CV 12.9 % [facility] Neutrophils 1.0 % [facility] Lymphocytes 92.0 % [facility] Monocytes 6.0 % [facility] Myelocytes 1.0 % [facility] ABS Neutrophils 0.02 (LL) K/cmm [facility] ABS Lymphs 1.82 K/cmm [facility] ABS Monocytes 0.12 K/cmm [facility] ABS Myelocytes 0.02 K/cmm [facility] RBC Morphology 1+ Teardrop cells [facility] Type of Diff: Manual [facility] Specimen Performing Organization Address City/State/ZIP Code Phon e Number [facility] [address] [place] [address] SERVICES [facility] [address] [place] [address] HOLD PURPLE TOP (08/23/2008 6:00 EDT) [facility] Hold Purple Top EDTA for hematology will be discarded after 48 hours, differential not available after 12 [facility] hours. Specimen Performing Organization Address City/State/ZIP Code Phon e Number [facility] [address] [place] [address] SERVICES [facility] [address] [place] [address] CREATININE (08/23/2008 6:00 EDT) [facility] Creatinine 0.30Comment: 0.1 - 0.7 [facility] Heparinized plasma. mg/dl LAB GFR, Calculated Age <18 ml/min/1.73m2 [facility] Heparinized plasma. LAB Specimen Performing Organization Address City/State/ZIP Code Phon e Number [facility] [address] [place] [address] SERVICES [facility] [address] [place] [address] BUN (08/23/2008 6:00 EDT) Pathologist Sig nature BUN 7Comment: Heparinized 7 - 18 mg/dl [facility] plasma. Specimen Performing Organization Address City/[facility]/ZIP Code Phon e Number [facility] [address] [place] [address] SERVICES [facility] [address] [place] [address] ELECTROLYTES (08/23/2008 6:00 EDT) Sodium 140Comment: 136 - 145 mEq/L [facility] Heparinized plasma. Potassium 4.0Comment: 3.6 - 5.2 mEq/L [facility] Heparinized plasma. Chloride 100Comment: 96 - 110 mEq/L [facility] Heparinized plasma. CO2 27Comment: 24 - 32 mEq/L [facility] Heparinized plasma. Specimen Performing Organization Address City/State/ZIP Code Phon e Number [facility] [address] [place] [address] SERVICES [facility] [address] [place] [address] TESTS ADDED BY PHONE (08/23/2008 6:00 EDT) Pathologist Sig nature Tests to be added LYT,BUN AND CREAT [facility] Who Called DR BASILIA [facility] Location Code B5 [facility] Specimen Performing Organization Address City/[facility]/ZIP Code Phon e Number [facility] [address] [place] [address] SERVICES [facility] [address] [place] [id number] (ABNORMAL) HEMAGRAM AND DIFFERENTIAL (08/23/2008 6:00 EDT) WBC 1.20 (L) 4.5 - 13.5 [facility] K/cmm LAB RBC 3.14 (L) 4.00 - 6.20 [facility] M/cmm LAB Hemoglobin Not Available 11.5 - 15.5 [facility] gm/dl LAB HCT 26.2 (L) 35.0 - 45.0 % [facility] MCV 84 77 - 95 fl [facility] MCH Not calculated pg [facility] MCHC Not calculated gm/dl [facility] PLT 56 (L) 156 - 312 [facility] K/cmm LAB RDW-CV 13.7 % [facility] Neutrophils 1.0 % [facility] Lymphocytes 70.0 % [facility] Atyp Lymphs 3.0 % [facility] Monocytes 20.0 % [facility] Eosinophils 1.0 % [facility] Other Cells 5.0 % [facility] ABS Neutrophils 0.01 (LL) K/cmm [facility] ABS Lymphs 0.84 K/cmm [facility] ABS Atyp Lymphs 0.04 K/cmm [facility] ABS Monocytes 0.24 K/cmm [facility] ABS Eosinophils 0.01 K/cmm [facility] ABS Other Cells 0.06 K/cmm [facility] RBC Morphology 1+ Anisocytosis [facility] 1+ Ovalocytes LAB 1+ Microcytes Comment Reviewed by Dr. Ford ? OTHERS ARE MONONUCLEAR CELLS WITH MORPHOLOGIC FEATURES SUGGESTING [facility] THAT THESE ?ARE IMMATURE MONOCYTIC CELLS. LAB Type of Diff: Manual [facility] Specimen Performing Organization Address City/State/ZIP Code Phon e Number [facility] [address] [place] [address] SERVICES [facility] [address] [place] [address] HOLD (08/23/2008 6:00 EDT) Pathologist [facility] nature Hold Hold for further [facility] testing. Specimen will be held for 30 days. Specimen Performing Organization Address City/State/ZIP Code Phon e Number [facility] [address] [place] [address] SERVICES [facility] [address] [place] [address] (ABNORMAL) HEMAGRAM AND DIFFERENTIAL (08/22/2008 4:30 EDT) Pathologist Sig nature WBC 0.92 (LL) 4.5 - 13.5 K/cmm [facility] RBC 2.95 (L) 4.00 - 6.20 M/cmm [facility] Hemoglobin 9.1 (L) 11.5 - 15.5 gm/dl [facility] HCT 24.8 (L) 35.0 - 45.0 % [facility] MCV 84 77 - 95 fl [facility] MCH 30.7 pg [facility] MCHC 36.5 gm/dl [facility] PLT 63 (L) 156 - 312 K/cmm [facility] RDW-CV 13.7 % [facility] Neutrophils 0.0 % [facility] Lymphocytes 93.0 % [facility] Monocytes 7.0 % [facility] ABS Neutrophils 0.00 (LL) K/cmm [facility] ABS Lymphs 0.86 K/cmm [facility] ABS Monocytes 0.06 K/cmm [facility] RBC Morphology Normal [facility] Type of Diff: Manual [facility] Specimen Performing Organization Address [facility] Phon e Number [facility] [address] [place] [address] SERVICES [facility] [address] [place] [address] BACTERIAL CULTURE, BLOOD (08/21/2008 9:30 EDT) Specimen Description Blood [facility] Red lumen Pediatric bottle received Result No growth [facility] Report Status Final [facility] [id number] Specimen Performing Organization Address [facility] Phon e Number [facility] [address] [place] [address] SERVICES [facility] [address] [place] [address] FUNGUS CULTURE, BLOOD (08/21/2008 9:30 EDT) Specimen Description Blood [facility] Red lumen Isolator tube received Result No fungi isolated [facility] Report Status Final [facility] 09/20/2008 Specimen Performing Organization Address City/[facility]/ZIP [facility] Phon e Number [facility] [address] [place] [address] SERVICES [facility] [address] [place] [address] BACTERIAL CULTURE, BLOOD (08/21/2008 9:00 EDT) Specimen Description Blood [facility] White lumen Pediatric bottle received Result No growth [facility] Report Status Final [facility] [id number] Specimen Performing Organization Address City/[facility]/ZIP [facility] Phon e Number [facility] [address] [place] [address] SERVICES [facility] [address] [place] [address] FUNGUS CULTURE, BLOOD (08/21/2008 9:00 EDT) Specimen Description Blood [facility] White lumen Isolator tube received Result No fungi isolated [facility] Report Status Final [facility] 09/20/2008 Specimen Performing Organization Address [facility] Phon e Number [facility] [address] [place] [address] SERVICES [facility] [address] [place] [address] (ABNORMAL) HEMAGRAM AND DIFFERENTIAL (08/21/2008 4:15 EDT) WBC 0.87 (LL) 4.5 - 13.5 [facility] K/cmm LAB RBC 2.14 (L) 4.00 - 6.20 [facility] M/cm LAB Hemoglobin Not Available 11.5 - 15.5 [facility] Comment: gm/dl LAB ??Corrected on 08/21 AT 0531: Previously reported as 6.7 HCT 18.0 (LL) 35.0 - 45.0 % [facility] MCV 84 77 - 95 fl [facility] MCH Not calculated pg [facility] MCHC Not calculated gm/dl [facility] PLT 16 (LL) 156 - 312 [facility] K/cmm LAB RDW-CV 12.7 % [facility] Neutrophils 0.0 % [facility] Lymphocytes 100.0 % [facility] ABS Neutrophils 0.00 (LL) K/cmm [facility] ABS Lymphs 0.87 K/cmm [facility] RBC Morphology Normal [facility] Type of Diff: Manual [facility] Specimen Performing Organization Address City/[facility]/ZIP Code Phon e Number [facility] [address] [place] [address] SERVICES [facility] [address] [place] [address] TOTAL PROTEIN (08/20/2008 12:30 EDT) Pathologist Sig nature Total Protein 6.6 5.9 - 7.8 g/dl [facility] Specimen Performing Organization Address City/State/ZIP Code Phon e Number [facility] [address] [place] [address] SERVICES [facility] [address] [place] [address] TOTAL BILIRUBIN (08/20/2008 12:30 EDT) Pathologist Sig nature Bilirubin, Total <0.5 0.0 - 1.4 mg/dl [facility] Specimen Performing Organization Address City/[facility]/ZIP Code Phon e Number [facility] [address] [place] [address] SERVICES [facility] [address] [place] [address] CREATININE (08/20/2008 12:30 EDT) Pathologist Sig nature Creatinine 0.40 0.1 - 0.7 mg/dl [facility] GFR, Calculated Age <18 ml/min/1.73m2 [facility] Specimen Performing Organization Address [facility]/ZIP Code Phon e Number [facility] [address] [place] [address] SERVICES [facility] [address] [place] [address] BUN (08/20/2008 12:30 EDT) Pathologist Sig nature BUN 8 7 - 18 mg/dl [facility] Specimen Performing Organization Address [facility]/ZIP Code Phon e Number [facility] [address] [place] [address] SERVICES [facility] [address] [place] [address] AST (08/20/2008 12:30 EDT) Pathologist Sig nature AST 27 23 - 58 U/L [facility] Specimen Performing Organization Address City/State/ZIP Code Phon e Number [facility] [address] [place] [address] SERVICES [facility] [address] [place] [address] ALT (08/20/2008 12:30 EDT) Pathologist Sig nature ALT 21 10 - 25 U/L [facility] Specimen Performing Organization Address City/State/ZIP Code Phon e Number [facility] [address] [place] [address] SERVICES [facility] [address] [place] [address] ALBUMIN (08/20/2008 12:30 EDT) Pathologist Sig nature Albumin 3.9 3.5 - 5.2 g/dl [facility] Specimen Performing Organization Address City/[facility]/ZIP Code Phon e Number [facility] [address] [place] [address] SERVICES [facility] [address] [place] [address] (ABNORMAL) ELECTROLYTES (08/20/2008 12:30 EDT) Pathologist Sig nature Sodium 138 136 - 145 mEq/L [facility] Potassium 3.5 (L) 3.6 - 5.2 mEq/L [facility] Chloride 102 96 - 110 mEq/L [facility] CO2 25 24 - 32 mEq/L [facility] Specimen Performing Organization Address [facility] Code Phon e Number [facility] [address] [place] [address] SERVICES [facility] [address] [place] [address] (ABNORMAL) HEMAGRAM AND DIFFERENTIAL (08/20/2008 6:27 EDT) Pathologist Sig nature WBC 0.40 (LL) 4.5 - 13.5 K/cmm [facility] RBC 2.46 (L) 4.00 - 6.20 M/cmm [facility] Hemoglobin 7.6 (L) 11.5 - 15.5 gm/dl [facility] HCT 20.8 (LL) 35.0 - 45.0 % [facility] MCV 84 77 - 95 fl [facility] MCH 30.6 pg [facility] MCHC 36.3 gm/dl [facility] PLT 23 (L) 156 - 312 K/cmm [facility] RDW-CV 13.4 % [facility] Neutrophils 2.0 % [facility] Lymphocytes 96.0 % [facility] Monocytes 2.0 % [facility] ABS Neutrophils 0.01 (LL) K/cmm [facility] ABS Lymphs 0.38 K/cmm [facility] ABS Monocytes 0.01 K/cmm [facility] Cells Counted 50 [facility] RBC Morphology Normal [facility] Type of Diff: Manual [facility] Specimen Performing Organization Address City/[facility]/ZIP Code Phon e Number [facility] [address] [place] [address] SERVICES [facility] [address] [place] [address] BACTERIAL CULTURE, BLOOD (08/19/2008 22:10 EDT) Specimen Description Blood [facility] White Lumen Pediatric bottle received Result No growth [facility] Report Status Final [facility] [id number] Specimen Performing Organization Address City/[facility]/ZIP [facility] Phon e Number [facility] [address] [place] [address] SERVICES [facility] [address] [place] [address] BACTERIAL CULTURE, BLOOD (08/19/2008 22:10 EDT) Specimen Blood [facility] Description Red Lumen LAB Pediatric bottle received Result ALPHA HEMOLYTIC STREPTOCOCCU S. Isolated organism is NOT Streptococcus bovis. [facility] Isolated in one bottle. First detected at: LAB 23 hours. Report Status Final [facility] 08/23/2008 LAB Specimen Performing Organization Address City/[facility] Phon e Number [facility] [address] [place] [address] SERVICES [facility] [address] [place] [address] FUNGUS CULTURE, BLOOD (08/19/2008 22:10 EDT) Specimen Description Blood [facility] Red Lumen Pediatric bottle received Isolator tube received Result No fungi isolated [facility] Report Status Final [facility] 09/20/2008 Specimen Performing Organization Address City/[facility]/ZIP Code Phon e Number [facility] [address] [place] [address] SERVICES [facility] [address] [place] [address] FUNGUS CULTURE, BLOOD (08/19/2008 22:10 EDT) Specimen Description Blood [facility] White Lumen Pediatric bottle received Isolator tube received Result No fungi isolated [facility] Report Status Final [facility] 09/13/2008 Specimen Performing Organization Address City/[facility]/ZIP Code Phon e Number [facility] [address] [place] [address] SERVICES [facility] [address] [place] [address] (ABNORMAL) HEMAGRAM AND DIFFERENTIAL (08/19/2008 4:30 EDT) WBC 1.10 (L) 4.5 - 13.5 [facility] K/cmm RBC 2.55 (L) 4.00 - 6.20 [facility] M/cmm Hemoglobin 7.9 (L) 11.5 - 15.5 [facility] gm/dl HCT 22.0 (L) 35.0 - 45.0 % [facility] MCV 86 77 - 95 fl [facility] MCH 31.0 pg [facility] MCHC 36.1 gm/dl [facility] PLT 41 (L) 156 - 312 [facility] K/cmm RDW-CV 13.6 % [facility] Neutrophils 0.0 % [facility] Lymphocytes 97.0 % [facility] Atyp Lymphs 3.0 % [facility] ABS Neutrophils 0.00 (LL) K/cmm [facility] ABS Lymphs 1.07 K/cmm [facility] ABS Atyp Lymphs 0.03 K/cmm [facility] RBC Morphology 1+ Poikilocytosis [facility] 1+ Stomatocytes Type of Diff: Manual [facility] Specimen Performing Organization Address City/State/ZIP Code Phon e Number [facility] [address] [place] [address] SERVICES [facility] [address] [place] [address] TOTAL BILIRUBIN (08/18/2008 4:20 EDT) Pathologist Sig nature Bilirubin, Total <0.5 0.0 - 1.4 mg/dl [facility] Specimen Performing Organization Address City/State/ZIP Code Phon e Number [facility] [address] [place] [address] SERVICES [facility] [address] [place] [address] CREATININE (08/18/2008 4:20 EDT) Pathologist Sig nature Creatinine 0.40 0.1 - 0.7 mg/dl [facility] GFR, Calculated Age <18 ml/min/1.73m2 [facility] Specimen Performing Organization Address City/[facility]/ZIP Code Phon e Number [facility] [address] [place] [address] SERVICES [facility] [address] [place] [address] (ABNORMAL) BUN (08/18/2008 4:20 EDT) Pathologist Sig nature BUN 21 (H) 7 - 18 mg/dl [facility] Specimen Performing Organization Address City/[facility]/ZIP Code Phon e Number [facility] [address] [place] [address] SERVICES [facility] [address] [place] [address] AST (08/18/2008 4:20 EDT) Pathologist Sig nature AST 32 23 - 58 U/L [facility] Specimen Performing Organization Address City/[facility]/ZIP [facility] Phon e Number [facility] [address] [place] [address] SERVICES [facility] [address] [place] [address] (ABNORMAL) ALT (08/18/2008 4:20 EDT) Pathologist Sig nature ALT 27 (H) 10 - 25 U/L [facility] Specimen Performing Organization Address [facility]/ZIP Code Phon e Number [facility] [address] [place] [address] SERVICES [facility] [address] [place] [address] (ABNORMAL) ALKALINE PHOSPHATASE (08/18/2008 4:20 EDT) Pathologist Sig nature Alkaline Phosphatase 139 (L) 150 - 350 U/L [facility] Specimen Performing Organization Address City/[facility]/ZIP Code Phon e Number [facility] [address] [place] [address] SERVICES [facility] [address] [place] [address] ELECTROLYTES (08/18/2008 4:20 EDT) Pathologist Sig nature Sodium 141 136 - 145 mEq/L [facility] Potassium 4.1 3.6 - 5.2 mEq/L [facility] Chloride 103 96 - 110 mEq/L [facility] CO2 27 24 - 32 mEq/L [facility] Specimen Performing Organization Address [facility]/ZIP Code Phon e Number [facility] [address] [place] [address] SERVICES [facility] [address] [place] [address] (ABNORMAL) HEMAGRAM AND DIFFERENTIAL (08/18/2008 4:20 EDT) WBC 1.47 (L) 4.5 - 13.5 [facility] K/cmm LAB RBC 2.62 (L) 4.00 - 6.20 [facility] M/cmm LAB Hemoglobin 8.4 (L) 11.5 - 15.5 [facility] gm/dl LAB HCT 23.0 (L) 35.0 - 45.0 % [facility] MCV Not calculated 77 - 95 fl [facility] Comment: LAB ??Corrected on 08/18 AT 0532: Previously reported as 88 MCH 32.2 pg [facility] MCHC 36.5 gm/dl [facility] PLT 57 (L) 156 - 312 [facility] K/cmm LAB RDW-CV 13.9 % [facility] Neutrophils 0.0 % [facility] Lymphocytes 100.0 % [facility] ABS Neutrophils 0.00 (LL) K/cmm [facility] ABS Lymphs 1.47 K/cmm [facility] RBC Morphology 1+ Microcytes [facility] Type of Diff: Manual [facility] Specimen Performing Organization Address City/State/ZIP Code Phon e Number [facility] [address] [place] [address] SERVICES [facility] [address] [place] [address] (ABNORMAL) HEMAGRAM AND DIFFERENTIAL (08/17/2008 4:30 EDT) WBC 1.96 (L) 4.5 - 13.5 [facility] K/cmm RBC 2.89 (L) 4.00 - 6.20 [facility] M/cmm Hemoglobin 9.0 (L) 11.5 - 15.5 [facility] gm/dl HCT 25.1 (L) 35.0 - 45.0 % [facility] MCV 87 77 - 95 fl [facility] MCH 31.2 pg [facility] MCHC 36.0 gm/dl [facility] PLT 19 (LL) 156 - 312 K/cmm [facility] RDW-CV 13.3 % [facility] Neutrophils 0.0 % [facility] Lymphocytes 91.0 % [facility] Atyp Lymphs 6.0 % [facility] Monocytes 2.0 % [facility] Eosinophils 1.0 % [facility] ABS Neutrophils 0.00 (LL) K/cmm [facility] ABS Lymphs 1.78 K/cmm [facility] ABS Atyp Lymphs 0.12 K/cmm [facility] ABS Monocytes 0.04 K/cmm [facility] ABS Eosinophils 0.02 K/cmm [facility] RBC Morphology 1+ Anisocytosis [facility] 1+ Microcytes Type of Diff: Manual [facility] Specimen Performing Organization Address City/State/ZIP Code Phon e Number [facility] [address] [place] [address] SERVICES [facility] [address] [place] [address] (ABNORMAL) HEMAGRAM AND DIFFERENTIAL (08/16/2008 4:15 EDT) WBC 3.32 (L) 4.5 - 13.5 [facility] K/cmm LAB RBC 2.91 (L) 4.00 - 6.20 [facility] M/cmm LAB Hemoglobin Not Available 11.5 - 15.5 [facility] gm/dl LAB HCT 25.6 (L) 35.0 - 45.0 % [facility] MCV Not calculated 77 - 95 fl [facility] MCH Not calculated pg [facility] MCHC Not calculated gm/dl [facility] PLT 33 (L) 156 - 312 [facility] K/cmm LAB RDW-CV 13.3 % [facility] Neutrophils 0.0 % [facility] Bands 0.0 % [facility] Comment: LAB ??Corrected on 08/17 AT 0752: Previously reported as 99.0 Eosinophils 1.0 % [facility] ABS Neutrophils 0.00 (LL) K/cmm [facility] ABS Bands 0.00 K/cmm [facility] Comment: LAB ??Corrected on 08/17 AT 0752: Previously reported as 3.29 ABS Eosinophils 0.03 K/cmm [facility] RBC Morphology 1+ Anisocytosis1+ [facility] Poikilocytosis1+ LAB Microcytes Type of Diff: Manual [facility] Lymphocytes 96.0 % [facility] Atyp Lymphs 3.0 % [facility] ABS Lymphs 3.19 K/cmm [facility] ABS Atyp Lymphs 0.10 K/cmm [facility] Specimen Performing Organization Address [facility]/ZIP Code Phon e Number [facility] [address] [place] [address] SERVICES [facility] [address] [place] [address] CREATININE (08/15/2008 4:30 EDT) Pathologist Sig nature Creatinine 0.50 0.1 - 0.7 mg/dl [facility] GFR, Calculated Age <18 ml/min/1.73m2 [facility] Specimen Performing Organization Address [facility] Phon e Number [facility] [address] [place] [address] SERVICES [facility] [address] [place] [address] BUN (08/15/2008 4:30 EDT) Pathologist Sig nature BUN 15 7 - 18 mg/dl [facility] Specimen Performing Organization Address [facility] Phon e Number [facility] [address] [place] [address] SERVICES [facility] [address] [place] [address] BILIRUBIN (08/15/2008 4:30 EDT) Pathologist Sig nature Conjugated Bilirubin 0.0 0.0 - 0.3 mg/dl [facility] LA B Unconjugated Bilirubin 0.3 0.1 - 1.1 mg/dl [facility] Calculated Total 0.3 0.0 - 1.4 mg/dl [facility] Bilirubin Specimen Performing Organization Address [facility]/ZIP [facility] Phon e Number [facility] [address] [place] [address] SERVICES [facility] [address] [place] [address] AST (08/15/2008 4:30 EDT) Pathologist Sig nature AST 38 23 - 58 U/L [facility] Specimen Performing Organization Address [facility]/ZIP [facility] Phon e Number [facility] [address] [place] [address] SERVICES [facility] [address] [place] [address] ALT (08/15/2008 4:30 EDT) Pathologist Sig nature ALT 25 10 - 25 U/L [facility] Specimen Performing Organization Address City/[facility]/ZIP Code Phon e Number [facility] [address] [place] [address] SERVICES [facility] [address] [place] [address] (ABNORMAL) ALKALINE PHOSPHATASE (08/15/2008 4:30 EDT) Pathologist Sig nature Alkaline Phosphatase 148 (L) 150 - 350 U/L [facility] Specimen Performing Organization Address City/[facility]/ZIP Code Phon e Number [facility] [address] [place] [address] SERVICES [facility] [address] [place] [address] ELECTROLYTES (08/15/2008 4:30 EDT) Pathologist Sig nature Sodium 141 136 - 145 mEq/L [facility] Potassium 4.2 3.6 - 5.2 mEq/L [facility] Chloride 104 96 - 110 mEq/L [facility] CO2 26 24 - 32 mEq/L [facility] Specimen Performing Organization Address City/[facility]/ZIP Code Phon e Number [facility] [address] [place] [address] SERVICES [facility] [address] [place] [address] (ABNORMAL) HEMAGRAM AND DIFFERENTIAL (08/15/2008 4:30 EDT) WBC 2.05 (L) 4.5 - 13.5 [facility] K/cmm RBC 2.87 (L) 4.00 - 6.20 [facility] M/cmm Hemoglobin 9.1 (L) 11.5 - 15.5 [facility] gm/dl HCT 25.1 (L) 35.0 - 45.0 % [facility] MCV 87 77 - 95 fl [facility] MCH 31.9 pg [facility] MCHC 36.5 gm/dl [facility] PLT 38 (L) 156 - 312 [facility] K/cmm RDW-CV 13.3 % [facility] Neutrophils 0.0 % [facility] Lymphocytes 100.0 % [facility] ABS Neutrophils 0.00 (LL) K/cmm [facility] ABS Lymphs 2.05 K/cmm [facility] RBC Morphology 1+ Microcytes [facility] 1+ Poikilocytosis Type of Diff: Manual [facility] Specimen Performing Organization Address City/State/ZIP Code Phon e Number [facility] [address] [place] [address] SERVICES [facility] [address] [place] [address] (ABNORMAL) HEMAGRAM AND DIFFERENTIAL (08/14/2008 4:33 EDT) WBC 2.46 (L) 4.5 - 13.5 [facility] K/cmm RBC 2.93 (L) 4.00 - 6.20 [facility] M/cmm Hemoglobin 9.6 (L) 11.5 - 15.5 [facility] gm/dl HCT 26.5 (L) 35.0 - 45.0 % [facility] MCV 90 77 - 95 fl [facility] MCH 32.9 pg [facility] MCHC 36.2 gm/dl [facility] PLT 57 (L) 156 - 312 K/cmm [facility] RDW-CV 14.5 % [facility] Neutrophils 0.0 % [facility] Lymphocytes 99.0 % [facility] Atyp Lymphs 1.0 % [facility] ABS Neutrophils 0.00 (LL) K/cmm [facility] ABS Lymphs 2.44 K/cmm [facility] ABS Atyp Lymphs 0.02 K/cmm [facility] RBC Morphology 1+ Anisocytosis [facility] 1+ Microcytes WBC Morphology 1+ Smudge cells [facility] Type of Diff: Manual [facility] Specimen Performing Organization Address City/State/ZIP Code Phon e Number [facility] [address] [place] [address] SERVICES [facility] [address] [place] [address] (ABNORMAL) HEMAGRAM AND DIFFERENTIAL (08/13/2008 6:00 EDT) WBC 1.95 (L) 4.5 - 13.5 [facility] K/cmm RBC 2.29 (L) 4.00 - 6.20 [facility] M/cmm Hemoglobin Not Available 11.5 - 15.5 [facility] gm/dl HCT 19.7 (LL) 35.0 - 45.0 % [facility] MCV 86 77 - 95 fl [facility] MCH Not calculated pg [facility] MCHC Not calculated gm/dl [facility] PLT 13 (LL) 156 - 312 [facility] K/cmm RDW-CV 14.1 % [facility] Neutrophils 3.0 % [facility] Lymphocytes 96.0 % [facility] Monocytes 1.0 % [facility] ABS Neutrophils 0.06 (LL) K/cmm [facility] ABS Lymphs 1.87 K/cmm [facility] ABS Monocytes 0.02 K/cmm [facility] RBC Morphology 1+ Anisocytosis [facility] 1+ Poikilocytosis Type of Diff: Manual [facility] Specimen Performing Organization Address City/State/ZIP Code Phon e Number [facility] [address] [place] [address] SERVICES [facility] [address] [place] [address] (ABNORMAL) HEMAGRAM AND DIFFERENTIAL (08/12/2008 5:00 EDT) WBC 1.78 (L) 4.5 - 13.5 [facility] K/cmm RBC 2.43 (L) 4.00 - 6.20 [facility] M/cmm Hemoglobin 7.7 (L) 11.5 - 15.5 [facility] gm/dl HCT 21.1 (L) 35.0 - 45.0 % [facility] MCV 87 77 - 95 fl [facility] MCH 31.7 pg [facility] MCHC 36.4 gm/dl [facility] PLT 33 (L) 156 - 312 K/cmm [facility] RDW-CV 14.2 % [facility] Neutrophils 9.0 % [facility] Lymphocytes 89.0 % [facility] Atyp Lymphs 1.0 % [facility] Monocytes 1.0 % [facility] ABS Neutrophils 0.16 (LL) K/cmm [facility] ABS Lymphs 1.58 K/cmm [facility] ABS Atyp Lymphs 0.02 K/cmm [facility] ABS Monocytes 0.02 K/cmm [facility] RBC Morphology 1+ Anisocytosis [facility] 1+ Microcytes 1+ Ovalocytes Type of Diff: Manual [facility] Specimen Performing Organization Address City/[facility] Code Phon e Number [facility] [address] [place] [address] SERVICES [facility] [address] [place] [address] (ABNORMAL) HEMAGRAM AND DIFFERENTIAL (08/11/2008 6:30 EDT) WBC 1.56 (L) 4.5 - 13.5 [facility] K/cmm RBC 2.54 (L) 4.00 - 6.20 [facility] M/cmm Hemoglobin 7.8 (L) 11.5 - 15.5 [facility] gm/dl HCT 22.1 (L) 35.0 - 45.0 % [facility] MCV 87 77 - 95 fl [facility] MCH 30.8 pg [facility] MCHC 35.5 gm/dl [facility] PLT 29 (L) 156 - 312 [facility] K/cmm RDW-CV 14.5 % [facility] Neutrophils 26.0 % [facility] Lymphocytes 71.0 % [facility] Atyp Lymphs 2.0 % [facility] Eosinophils 1.0 % [facility] ABS Neutrophils 0.41 (LL) K/cmm [facility] ABS Lymphs 1.10 K/cmm [facility] ABS Atyp Lymphs 0.03 K/cmm [facility] ABS Eosinophils 0.02 K/cmm [facility] RBC Morphology 1+ Anisocytosis [facility] 1+ Poikilocytosis 1+ Microcytes Type of Diff: Manual [facility] Specimen Performing Organization Address [facility] Code Phon e Number [facility] [address] [place] [address] SERVICES [facility] [address] [place] [address] CREATININE (08/11/2008 6:30 EDT) Creatinine 0.30Comment: 0.1 - 0.7 [facility] Heparinized plasma. mg/dl LAB GFR, Calculated Age <18 ml/min/1.73m2 [facility] Heparinized plasma. LAB Specimen Performing Organization Address City/State/ZIP Code Phon e Number [facility] [address] [place] [address] SERVICES [facility] [address] [place] [address] BUN (08/11/2008 6:30 EDT) Pathologist Sig nature BUN 16Comment: Heparinized 7 - 18 mg/dl [facility] plasma. Specimen Performing Organization Address City/[facility]/ZIP Code Phon e Number [facility] [address] [place] [address] SERVICES [facility] [address] [place] [address] TOTAL & DIRECT BILIRUBIN (08/11/2008 6:30 EDT) Conjugated Bilirubin 0.0Comment: 0.0 - 0.3 [facility] Heparinized plasma. mg/dl LAB Unconjugated 0.3Comment: 0.1 - 1.1 [facility] Bilirubin Heparinized plasma. mg/dl LAB Bilirubin, Total <0.5Comment: 0.0 - 1.4 [facility] Heparinized plasma. mg/dl LAB Specimen Performing Organization Address City/[facility]/ZIP Code Phon e Number [facility] [address] [place] [address] SERVICES [facility] [address] [place] [address] AST (08/11/2008 6:30 EDT) Pathologist Sig nature AST 33Comment: Heparinized 23 - 58 U/L [facility] plasma. Specimen Performing Organization Address City/State/ZIP Code Phon e Number [facility] [address] [place] [address] SERVICES [facility] [address] [place] [address] ALT (08/11/2008 6:30 EDT) Pathologist Sig nature ALT 22Comment: Heparinized 10 - 25 U/L [facility] plasma. Specimen Performing Organization Address City/State/ZIP Code Phon e Number [facility] [address] [place] [address] SERVICES [facility] [address] [place] [address] (ABNORMAL) ALKALINE PHOSPHATASE (08/11/2008 6:30 EDT) Pathologist [facility] Alkaline 135 (L)Comment: 150 - 350 U/L [facility] Phosphatase Heparinized plasma. LAB Specimen Performing Organization Address City/[facility]/ZIP Code Phon e Number [facility] [address] [place] [address] SERVICES [facility] [address] [place] [address] ALBUMIN (08/11/2008 6:30 EDT) Pathologist [facility] Albumin 3.5Comment: 3.5 - 5.2 g/dl [facility] Heparinized plasma. Specimen Performing Organization Address City/[facility] Phon e Number [facility] [address] [place] [address] SERVICES [facility] [address] [place] [address] ELECTROLYTES (08/11/2008 6:30 EDT) Pathologist [facility] Sodium 140Comment: 136 - 145 mEq/L [facility] Heparinized plasma. Potassium 3.9Comment: 3.6 - 5.2 mEq/L [facility] Heparinized plasma. Chloride 105Comment: 96 - 110 mEq/L [facility] Heparinized plasma. CO2 24Comment: 24 - 32 mEq/L [facility] Heparinized plasma. Specimen Performing Organization Address [facility] Phon e Number [facility] [address] [place] [address] SERVICES [facility] [address] [place] [address] (ABNORMAL) HEMAGRAM AND DIFFERENTIAL (08/09/2008 9:25 EDT) WBC 2.14 (L) 4.5 - 13.5 [facility] K/cmm RBC 2.69 (L) 4.00 - 6.20 [facility] M/cmm Hemoglobin 8.5 (L) 11.5 - 15.5 [facility] gm/dl HCT 23.9 (L) 35.0 - 45.0 % [facility] MCV 89 77 - 95 fl [facility] MCH 31.7 pg [facility] MCHC 35.7 gm/dl [facility] PLT 68 (L) 156 - 312 [facility] K/cmm RDW-CV 15.1 % [facility] Neutrophils 66.0 % [facility] Lymphocytes 34.0 % [facility] ABS Neutrophils 1.41 K/cmm [facility] ABS Lymphs 0.73 K/cmm [facility] RBC Morphology 1+ Poikilocytosis [facility] 1+ Ovalocytes Type of Diff: Manual [facility] Specimen Performing Organization Address [facility]/ZIP Code Phon e Number [facility] [address] [place] [address] SERVICES [facility] [address] [place] [address] TOTAL BILIRUBIN (08/08/2008 4:15 EDT) Pathologist Sig nature Bilirubin, Total <0.5 0.0 - 1.4 mg/dl [facility] Specimen Performing Organization Address [facility]/ZIP [facility] Phon e Number [facility] [address] [place] [address] SERVICES [facility] [address] [place] [address] CREATININE (08/08/2008 4:15 EDT) Pathologist Sig nature Creatinine 0.40 0.1 - 0.7 mg/dl [facility] GFR, Calculated Age <18 ml/min/1.73m2 [facility] Specimen Performing Organization Address [facility] Phon e Number [facility] [address] [place] [address] SERVICES [facility] [address] [place] [address] BUN (08/08/2008 4:15 EDT) Pathologist Sig nature BUN 17 7 - 18 mg/dl [facility] Specimen Performing Organization Address [facility]/ZIP Code Phon e Number [facility] [address] [place] [address] SERVICES [facility] [address] [place] [address] AST (08/08/2008 4:15 EDT) Pathologist Sig nature AST 49 23 - 58 U/L [facility] Specimen Performing Organization Address [facility]/ZIP Code Phon e Number [facility] [address] [place] [address] SERVICES [facility] [address] [place] [address] (ABNORMAL) ALT (08/08/2008 4:15 EDT) Pathologist Sig nature ALT 38 (H) 10 - 25 U/L [facility] Specimen Performing Organization Address City/[facility]/ZIP Code Phon e Number [facility] [address] [place] [address] SERVICES [facility] [address] [place] [address] (ABNORMAL) ALKALINE PHOSPHATASE (08/08/2008 4:15 EDT) Pathologist Sig nature Alkaline Phosphatase 133 (L) 150 - 350 U/L [facility] Specimen Performing Organization Address City/[facility] Code Phon e Number [facility] [address] [place] [address] SERVICES [facility] [address] [place] [address] ELECTROLYTES (08/08/2008 4:15 EDT) Pathologist Sig nature Sodium 139 136 - 145 mEq/L [facility] Potassium 4.1 3.6 - 5.2 mEq/L [facility] Chloride 103 96 - 110 mEq/L [facility] CO2 25 24 - 32 mEq/L [facility] Specimen Performing Organization Address [facility] Phon e Number [facility] [address] [place] [address] SERVICES [facility] [address] [place] [address] (ABNORMAL) HEMAGRAM AND DIFFERENTIAL (08/07/2008 3:15 EDT) WBC 2.57 (L) 4.5 - 13.5 [facility] K/cmm RBC 2.61 (L) 4.00 - 6.20 [facility] M/cmm Hemoglobin 8.2 (L) 11.5 - 15.5 [facility] gm/dl HCT 23.0 (L) 35.0 - 45.0 % [facility] MCV 88 77 - 95 fl [facility] MCH 31.4 pg [facility] MCHC 35.5 gm/dl [facility] PLT 113 (L) 156 - 312 [facility] K/cmm RDW-CV 14.8 % [facility] Neutrophils 73.0 % [facility] Lymphocytes 27.0 % [facility] ABS Neutrophils 1.88 K/cmm [facility] ABS Lymphs 0.69 K/cmm [facility] RBC Morphology 1+ Poikilocytosis [facility] Type of Diff: Manual [facility] Specimen Performing Organization Address [facility] Phon e Number [facility] [address] [place] [phone] SERVICES [facility] [address] [place] [address] CREATININE (08/05/2008 3:40 EDT) Pathologist Sig nature Creatinine 0.37 0.1 - 0.7 mg/dl [facility] GFR, Calculated Age <18 ml/min/1.73m2 [facility] Specimen Performing Organization Address [facility] Phon e Number [facility] [address] [place] [address] SERVICES [facility] [address] [place] [address] BUN (08/05/2008 3:40 EDT) Pathologist Sig nature BUN 11 7 - 18 mg/dl [facility] Specimen Performing Organization Address [facility] Phon e Number [facility] [address] [place] [address] SERVICES [facility] [address] [place] [address] TOTAL & DIRECT BILIRUBIN (08/05/2008 3:40 EDT) Pathologist Sig nature Conjugated Bilirubin 0.0 0.0 - 0.3 mg/dl [facility] B Unconjugated Bilirubin 0.3 0.1 - 1.1 mg/dl [facility] Bilirubin, Total <0.5 0.0 - 1.4 mg/dl [facility] Specimen Performing Organization Address [facility] Phon e Number [facility] [address] [place] [address] SERVICES [facility] [address] [place] [address] (ABNORMAL) AST (08/05/2008 3:40 EDT) Pathologist Sig nature AST 59 (H) 23 - 58 U/L [facility] Specimen Performing Organization Address [facility]/ZIP Code Phon e Number [facility] [address] [place] [address] SERVICES [facility] [address] [place] [address] (ABNORMAL) ALT (08/05/2008 3:40 EDT) Pathologist Sig nature ALT 39 (H) 10 - 25 U/L [facility] Specimen Performing Organization Address City/[facility]/ZIP Code Phon e Number [facility] [address] [place] [address] SERVICES [facility] [address] [place] [address] (ABNORMAL) ALKALINE PHOSPHATASE (08/05/2008 3:40 EDT) Pathologist Sig nature Alkaline Phosphatase 120 (L) 150 - 350 U/L [facility] Specimen Performing Organization Address City/[facility]/ZIP Code Phon e Number [facility] [address] [place] [address] SERVICES [facility] [address] [place] [address] ELECTROLYTES (08/05/2008 3:40 EDT) Pathologist Sig nature Sodium 139 136 - 145 mEq/L [facility] Potassium 3.9 3.6 - 5.2 mEq/L [facility] Chloride 107 96 - 110 mEq/L [facility] CO2 25 24 - 32 mEq/L [facility] Specimen Performing Organization Address City/[facility] Phon e Number [facility] [address] [place] [address] SERVICES [facility] [address] [place] [address] (ABNORMAL) HEMAGRAM AND DIFFERENTIAL (08/05/2008 3:40 EDT) Pathologist Sig nature WBC 3.98 (L) 4.5 - 13.5 K/cmm [facility] RBC 2.69 (L) 4.00 - 6.20 M/cmm [facility] Hemoglobin 8.6 (L) 11.5 - 15.5 gm/dl [facility] HCT 24.1 (L) 35.0 - 45.0 % [facility] MCV 90 77 - 95 fl [facility] MCH 31.9 pg [facility] MCHC 35.6 gm/dl [facility] PLT 143 (L) 156 - 312 K/cmm [facility] RDW-CV 15.7 % [facility] Neutrophils 87.5 % [facility] Lymphocytes 11.3 % [facility] Monocytes 0.2 % [facility] Eosinophils 0.7 % [facility] Basophils 0.3 % [facility] ABS Neutrophils 3.48 K/cmm [facility] ABS Lymphs 0.45 K/cmm [facility] ABS Monocytes 0.01 K/cmm [facility] ABS Eosinophils 0.03 K/cmm [facility] ABS Basophils 0.01 K/cmm [facility] Type of Diff: Automated [facility] Specimen Performing Organization Address City/[facility]/ZIP Code Phon e Number [facility] [address] [place] [address] SERVICES [facility] [address] [place] [address] CREATININE (08/04/2008 4:50 EDT) Pathologist Sig nature Creatinine 0.43 0.1 - 0.7 mg/dl [facility] GFR, Calculated Age <18 ml/min/1.73m2 [facility] Specimen Performing Organization Address City/[facility]/ZIP Code Phon e Number [facility] [address] [place] [address] SERVICES [facility] [address] [place] [address] BUN (08/04/2008 4:50 EDT) Pathologist Sig nature BUN 11 7 - 18 mg/dl [facility] Specimen Performing Organization Address City/[facility]/ZIP Code Phon e Number [facility] [address] [place] [address] SERVICES [facility] [address] [place] [address] TOTAL & DIRECT BILIRUBIN (08/04/2008 4:50 EDT) Pathologist Sig nature Conjugated Bilirubin 0.0 0.0 - 0.3 mg/dl [facility] B Unconjugated Bilirubin 0.4 0.1 - 1.1 mg/dl [facility] Bilirubin, Total <0.5 0.0 - 1.4 mg/dl [facility] Specimen Performing Organization Address [facility]/ZIP Code Phon e Number [facility] [address] [place] [address] SERVICES [facility] [address] [place] [address] AST (08/04/2008 4:50 EDT) Pathologist Sig nature AST 45 23 - 58 U/L [facility] Specimen Performing Organization Address City/[facility]/ZIP Code Phon e Number [facility] [address] [place] [address] SERVICES [facility] [address] [place] [address] (ABNORMAL) ALT (08/04/2008 4:50 EDT) Pathologist Sig nature ALT 31 (H) 10 - 25 U/L [facility] Specimen Performing Organization Address [facility]/ZIP [facility] Phon e Number [facility] [address] [place] [address] SERVICES [facility] [address] [place] [address] (ABNORMAL) ALKALINE PHOSPHATASE (08/04/2008 4:50 EDT) Pathologist Sig nature Alkaline Phosphatase 122 (L) 150 - 350 U/L [facility] Specimen Performing Organization Address City/[facility]/ZIP Code Phon e Number [facility] [address] [place] [address] SERVICES [facility] [address] [place] [address] (ABNORMAL) ELECTROLYTES (08/04/2008 4:50 EDT) Pathologist Sig nature Sodium 138 136 - 145 mEq/L [facility] Potassium 4.0 3.6 - 5.2 mEq/L [facility] Chloride 107 96 - 110 mEq/L [facility] CO2 23 (L) 24 - 32 mEq/L [facility] Specimen Performing Organization Address [facility]/ZIP Code Phon e Number [facility] [address] [place] [address] SERVICES [facility] [address] [place] [address] (ABNORMAL) HEMAGRAM AND DIFFERENTIAL (08/04/2008 4:50 EDT) Pathologist Sig nature WBC 3.48 (L) 4.5 - 13.5 K/cmm [facility] RBC 2.75 (L) 4.00 - 6.20 M/cmm [facility] Hemoglobin 8.7 (L) 11.5 - 15.5 gm/dl [facility] HCT 25.0 (L) 35.0 - 45.0 % [facility] MCV 91 77 - 95 fl [facility] MCH 31.6 pg [facility] MCHC 34.8 gm/dl [facility] PLT 145 (L) 156 - 312 K/cmm [facility] RDW-CV 17.1 % [facility] Neutrophils 89.1 % [facility] Lymphocytes 8.4 % [facility] Monocytes 1.3 % [facility] Eosinophils 1.1 % [facility] Basophils 0.1 % [facility] ABS Neutrophils 3.10 K/cmm [facility] ABS Lymphs 0.29 K/cmm [facility] ABS Monocytes 0.04 K/cmm [facility] ABS Eosinophils 0.04 K/cmm [facility] ABS Basophils 0.00 K/cmm [facility] Type of Diff: Automated [facility] Specimen Performing Organization Address City/[facility] Code Phon e Number [facility] [address] [place] [address] SERVICES [facility] [address] [place] [address] CREATININE (08/03/2008 5:01 EDT) Pathologist Sig nature Creatinine 0.50 0.1 - 0.7 mg/dl [facility]USA GFR, Calculated Age <18 ml/min/1.73m2 [facility] Specimen Performing Organization Address City/[facility]/ZIP Code Phon e Number [facility] [address] [place] [address] SERVICES [facility] [address] [place] [address] BUN (08/03/2008 5:01 EDT) Pathologist Sig nature BUN 9 7 - 18 mg/dl [facility] Specimen Performing Organization Address [facility] Phon e Number [facility] [address] [place] [address] SERVICES [facility] [address] [place] [address] TOTAL & DIRECT BILIRUBIN (08/03/2008 5:01 EDT) Pathologist Sig nature Conjugated Bilirubin 0.0 0.0 - 0.3 mg/dl [facility] B Unconjugated Bilirubin 0.5 0.1 - 1.1 mg/dl [facility] Bilirubin, Total <0.5 0.0 - 1.4 mg/dl [facility] Specimen Performing Organization Address [facility] Code Phon e Number [facility] [address] [place] [address] SERVICES [facility] [address] [place] [address] AST (08/03/2008 5:01 EDT) Pathologist Sig nature AST 40 23 - 58 U/L [facility] Specimen Performing Organization Address [facility] Phon e Number [facility] [address] [place] [address] SERVICES [facility] [address] [place] [address] (ABNORMAL) ALT (08/03/2008 5:01 EDT) Pathologist Sig nature ALT 26 (H) 10 - 25 U/L [facility] Specimen Performing Organization Address [facility] Phon e Number [facility] [address] [place] [address] SERVICES [facility] [address] [place] [address] ALKALINE PHOSPHATASE (08/03/2008 5:01 EDT) Pathologist Sig nature Alkaline Phosphatase 163 150 - 350 U/L [facility] Specimen Performing Organization Address [facility] Phon e Number [facility] [address] [place] [address] SERVICES [facility] [address] [place] [address] ELECTROLYTES (08/03/2008 5:01 EDT) Pathologist Sig nature Sodium 139 136 - 145 mEq/L [facility] Potassium 3.9 3.6 - 5.2 mEq/L [facility] Chloride 105 96 - 110 mEq/L [facility] CO2 24 24 - 32 mEq/L [facility] Specimen Performing Organization Address [facility] Phon e Number [facility] [address] [place] [address] SERVICES [facility] [address] [place] [address] (ABNORMAL) HEMAGRAM AND DIFFERENTIAL (08/03/2008 5:01 EDT) Pathologist Sig nature WBC 5.33 4.5 - 13.5 K/cmm [facility] RBC 3.04 (L) 4.00 - 6.20 M/cmm [facility] Hemoglobin 9.7 (L) 11.5 - 15.5 gm/dl [facility] HCT 27.5 (L) 35.0 - 45.0 % [facility] MCV 91 77 - 95 fl [facility] MCH 31.9 pg [facility] MCHC 35.2 gm/dl [facility] PLT 171 156 - 312 K/cmm [facility] RDW-CV 16.5 % [facility] Neutrophils 87.6 % [facility] Lymphocytes 4.2 % [facility] Monocytes 7.2 % [facility] Eosinophils 0.9 % [facility] Basophils 0.1 % [facility] ABS Neutrophils 4.67 K/cmm [facility] ABS Lymphs 0.23 K/cmm [facility] ABS Monocytes 0.38 K/cmm [facility] ABS Eosinophils 0.05 K/cmm [facility] ABS Basophils 0.00 K/cmm [facility] Type of Diff: Automated [facility] Specimen Performing Organization Address City/[facility] Code Phon e Number [facility] [address] [place] [address] SERVICES [facility] [address] [place] [address] BACTERIAL CULTURE, BLOOD (08/02/2008 20:45 EDT) Specimen Description Blood [facility] White Pediatric bottle received Result No growth [facility] Report Status Final [facility] [id number] Specimen Performing Organization Address City/State/ZIP Code Phon e Number [facility] [address] [place] [address] SERVICES [facility] [address] [place] [address] BACTERIAL CULTURE, BLOOD (08/02/2008 20:45 EDT) Specimen Description Blood [facility] Red Pediatric bottle received Result No growth [facility] Report Status Final [facility] [id number] Specimen Performing Organization Address City/[facility]/ZIP Code Phon e Number [facility] [address] [place] [address] SERVICES [facility] [address] [place] [address] FUNGUS CULTURE, BLOOD (08/02/2008 20:45 EDT) Specimen Description Blood [facility] Isolator tube received LAB Red port pediatric tube received Result Scanty specimen [facility] One colony only LAB ASPERGILLUS FUMIGATUS Report Status Final [facility] 09/02/2008 LAB Specimen Performing Organization Address City/[facility] Code Phon e Number [facility] [address] [place] [address] SERVICES [facility] [address] [place] [address] FUNGUS CULTURE, BLOOD (08/02/2008 20:45 EDT) Specimen Description Blood [facility] Isolator tube received white port pediatric tube received Result Scanty specimen [facility] No fungi isolated Report Status Final [facility] 08/30/2008 Specimen Performing Organization Address City/[facility] Phon e Number [facility] [address] [place] [address] SERVICES [facility] [address] [place] [address] CT CHEST WO CONTRAST (08/02/2008 9:52 EDT) Anatomical Region Laterality Modality Other Specimen Narrative [facility] - 03/27/2009 8: 08 EDT h/o 8yo with aml and a past hx of pneumonia, would like a baseline ct chest prior to chemotherapy CT Chest without contrast August 02, 2008 9:52:00 AM Clinical History: 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 Coronal and sagittal reconstru ctions are obtained. Comparison is made to June 17, 2008. Findings: The unenhanced mediastinum has a normal appearance. The tip of the vascular catheter projects in the low SVC RA junction. No significant hilar or mediastinal adenopa thy. There are bilateral enlarged axillary lymph nodes. The lung parenchyma is normal. The previ ously seen areas of consolidation and tree-in-bud are no herminia hina present. The basilar segments of the lower lobe and the lingu lar lobe now show normal aeration. The pleura is normal. On HRCT, no significant bronchial thicke mervin. No bronchiectasis. On coronal and sagittal reconstructions, there is normal tracheal bronchial branching. The bones are unremarkable. Incidentally seen is a vacuum phenomenon in the right shoulder. Impression: Normal chest CT. No abnormal ity seen. 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 Coronal and sagittal reconstru ctions are obtained. Comparison is made to June 17, 2008. Findings: The unenhanced mediastinum has a normal appearance. The tip of the vascular catheter projects in the low SVC RA junction. No significant hilar or mediastinal adenopa thy. There are bilateral enlarged axillary lymph nodes. The lung parenchyma is normal. The previ ously seen areas of consolidation and tree-in-bud are no herminia hina present. The basilar segments of the lower lobe and the lingu lar lobe now show normal aeration. The pleura is normal. On HRCT, no significant bronchial thicke mervin. No bronchiectasis. On coronal and sagittal reconstructions, there is normal tracheal bronchial branching. The bones are unremarkable. Incidentally seen is a vacuum phenomenon in the right shoulder. Impression: Normal chest CT. No abnormal ity seen. Performing Organization Address City/[facility]/ZIP Code Phon e Number [facility] [address] [facility] [address] [facility] [address] [place] [address] CREATININE (08/02/2008 5:20 EDT) Pathologist Sig [facility] Creatinine 0.50 0.1 - 0.7 mg/dl [facility] GFR, Calculated Age <18 ml/min/1.73m2 [facility] Specimen Performing Organization Address City/State/ZIP Code Phon e Number [facility] [address] [place] [address] SERVICES [facility] [address] [place] [address] (ABNORMAL) BUN (08/02/2008 5:20 EDT) Pathologist Sig nature BUN 19 (H) 7 - 18 mg/dl [facility] Specimen Performing Organization Address City/State/ZIP Code Phon e Number [facility] [address] [place] [address] SERVICES [facility] [address] [place] [address] TOTAL & DIRECT BILIRUBIN (08/02/2008 5:20 EDT) Pathologist Sig nature Conjugated Bilirubin 0.0 0.0 - 0.3 mg/dl [facility] B Unconjugated Bilirubin 0.3 0.1 - 1.1 mg/dl [facility] Bilirubin, Total <0.5 0.0 - 1.4 mg/dl [facility] Specimen Performing Organization Address City/[facility]/ZIP Code Phon e Number [facility] [address] [place] [address] SERVICES [facility] [address] [place] [address] AST (08/02/2008 5:20 EDT) Pathologist Sig nature AST 35 23 - 58 U/L [facility] Specimen Performing Organization Address City/State/ZIP Code Phon e Number [facility] [address] [place] [address] SERVICES [facility] [address] [place] [address] (ABNORMAL) ALT (08/02/2008 5:20 EDT) Pathologist Sig nature ALT 27 (H) 10 - 25 U/L [facility] Specimen Performing Organization Address City/[facility]/ZIP Code Phon e Number [facility] [address] [place] [address] SERVICES [facility] [address] [place] [address] ALKALINE PHOSPHATASE (08/02/2008 5:20 EDT) Pathologist Sig nature Alkaline Phosphatase 168 150 - 350 U/L [facility] Specimen Performing Organization Address City/[facility]/ZIP Code Phon e Number [facility] [address] [place] [address] SERVICES [facility] [address] [place] [address] (ABNORMAL) ELECTROLYTES (08/02/2008 5:20 EDT) Pathologist Sig nature Sodium 141 136 - 145 mEq/L [facility] Potassium 4.3 3.6 - 5.2 mEq/L [facility] Chloride 109 96 - 110 mEq/L [facility] CO2 23 (L) 24 - 32 mEq/L [facility] Specimen Performing Organization Address City/[facility]/ZIP Code Phon e Number [facility] [address] [place] [address] SERVICES [facility] [address] [place] [address] (ABNORMAL) HEMAGRAM AND DIFFERENTIAL (08/02/2008 5:20 EDT) WBC 3.41 (L) 4.5 - 13.5 [facility] K/cmm RBC 2.91 (L) 4.00 - 6.20 [facility] M/cmm Hemoglobin 9.3 (L) 11.5 - 15.5 [facility] gm/dl HCT 26.6 (L) 35.0 - 45.0 % [facility] MCV 91 77 - 95 fl [facility] MCH 31.8 pg [facility] MCHC 34.8 gm/dl [facility] PLT 241 156 - 312 K/cmm [facility] RDW-CV 17.6 % [facility] Neutrophils 50.0 % [facility] Lymphocytes 38.0 % [facility] Atyp Lymphs 2.0 % [facility] Monocytes 10.0 % [facility] ABS Neutrophils 1.70 K/cmm [facility] ABS Lymphs 1.30 K/cmm [facility] ABS Atyp Lymphs 0.07 K/cmm [facility] ABS Monocytes 0.34 K/cmm [facility] RBC Morphology 1+ Anisocytosis [facility] 1+ Macrocytes 1+ Microcytes Type of Diff: Manual [facility] Specimen Performing Organization Address City/State/ZIP Code Phon e Number [facility] [address] [place] [address] SERVICES [facility] [address] [place] [address] HOLD GREEN TOP (08/01/2008 21:00 EDT) Pathologist Sig nature Hold Green Top Hold for further [facility] testing. Specimen will be held for 30 days. Specimen Performing Organization Address City/State/ZIP Code Phon e Number [facility] [address] [place] [address] SERVICES [facility] [address] [place] [address] (ABNORMAL) GLUCOSE, SERUM (08/01/2008 21:00 EDT) Pathologist Sig nature Glucose, Serum 111 (H) 70 - 100 mg/dl [facility] Specimen Performing Organization Address [facility] Phon e Number [facility] [address] [place] [address] SERVICES [facility] [address] [place] [address] (ABNORMAL) PHOSPHORUS (08/01/2008 21:00 EDT) Pathologist Sig nature Phosphorus 6.0 (H) 4.1 - 5.4 mg/dl [facility] Specimen Performing Organization Address [facility] Phon e Number [facility] [address] [place] [address] SERVICES [facility] [address] [place] [address] MAGNESIUM (08/01/2008 21:00 EDT) Pathologist Sig nature Magnesium 1.7 1.7 - 2.8 mg/dl [facility] Specimen Performing Organization Address [facility] Phon e Number [facility] [address] [place] [address] SERVICES [facility] [address] [place] [address] CREATININE (08/01/2008 21:00 EDT) Pathologist Sig nature Creatinine 0.60 0.1 - 0.7 mg/dl [facility] GFR, Calculated Age <18 ml/min/1.73m2 [facility] Specimen Performing Organization Address [facility]/ZIP Code Phon e Number [facility] [address] [place] [address] SERVICES [facility] [address] [place] [address] BUN (08/01/2008 21:00 EDT) Pathologist Sig nature BUN 18 7 - 18 mg/dl [facility] Specimen Performing Organization Address [facility]/ZIP Code Phon e Number [facility] [address] [place] [address] SERVICES [facility] [address] [place] [address] TOTAL & DIRECT BILIRUBIN (08/01/2008 21:00 EDT) Pathologist Sig nature Conjugated Bilirubin 0.0 0.0 - 0.3 mg/dl [facility] B Unconjugated Bilirubin 0.3 0.1 - 1.1 mg/dl [facility] Bilirubin, Total <0.5 0.0 - 1.4 mg/dl [facility] Specimen Performing Organization Address [facility]/ZIP [facility] Phon e Number [facility] [address] [place] [address] SERVICES [facility] [address] [place] [address] AST (08/01/2008 21:00 EDT) Pathologist Sig nature AST 52 23 - 58 U/L [facility] Specimen Performing Organization Address [facility] Phon e Number [facility] [address] [place] [address] SERVICES [facility] [address] [place] [address] (ABNORMAL) ALT (08/01/2008 21:00 EDT) Pathologist Sig nature ALT 29 (H) 10 - 25 U/L [facility] Specimen Performing Organization Address City/[facility]/ZIP [facility] Phon e Number [facility] [address] [place] [address] SERVICES [facility] [address] [place] [address] ELECTROLYTES (08/01/2008 21:00 EDT) Pathologist Sig nature Sodium 141 136 - 145 mEq/L [facility] Potassium 4.2 3.6 - 5.2 mEq/L [facility] Chloride 106 96 - 110 mEq/L [facility] CO2 24 24 - 32 mEq/L [facility] Specimen Performing Organization Address City/[facility]/ZIP [facility] Phon e Number [facility] [address] [place] [address] SERVICES [facility] [address] [place] [address] (ABNORMAL) HEMAGRAM AND DIFFERENTIAL (08/01/2008 21:00 EDT) Pathologist Sig nature WBC 4.67 4.5 - 13.5 K/cmm [facility] RBC 3.14 (L) 4.00 - 6.20 M/cmm [facility] Hemoglobin 10.2 (L) 11.5 - 15.5 gm/dl [facility] HCT 28.4 (L) 35.0 - 45.0 % [facility] MCV 90 77 - 95 fl [facility] MCH 32.5 pg [facility] MCHC 35.9 gm/dl [facility] PLT 302 156 - 312 K/cmm [facility] RDW-CV 17.4 % [facility] Neutrophils 35.6 % [facility] Lymphocytes 45.8 % [facility] Monocytes 18.1 % [facility] Eosinophils 0.2 % [facility] Basophils 0.3 % [facility] ABS Neutrophils 1.66 K/cmm [facility] ABS Lymphs 2.14 K/cmm [facility] ABS Monocytes 0.85 K/cmm [facility] ABS Eosinophils 0.01 K/cmm [facility] ABS Basophils 0.01 K/cmm [facility] Type of Diff: Automated [facility] Specimen Performing Organization Address City/[facility] Phon e Number [facility] [address] [place] [address] SERVICES [facility] [address] [place] [address] BONE MARROW EXAM (08/01/2008 14:30 EDT) Preliminary Bone ACUTE MYELOID LEUKEMIA, TREATED. ??1% BLASTS. ? ?[[id number]] [facility] Marrow Exam PRELIMINARY REPORT, SEE HEMATOPATHOLOGY REPORT FOR FINAL REPORT LAB Reviewed by Dr. Iglesias Specimen Performing Organization Address [facility] Phon e Number [facility] [address] [place] [address] SERVICES [facility] [address] [place] [address] FLOW CYTOMETRY (08/01/2008 14:30 EDT) Pathology FLOW CYTOMETRY REPORT ? [facility] Report: ? LAB Reports generated via electr onic interface contain original data; ? however they are lacking the format of the original report. ? Caution should be taken when reading/interpreting unformatted reports. ? Name: ? DIANA PERRIN ? Accession #: ? [id number] ? : ? 2000 (Age: 8) ??M ?Collect Date: ? 08/01/2008 14:30 ? Location: ? [facility] ? Receive Date: ? 08/01/2008 14:50 ? Provider: ?ELLE C CLAUS ANS MD ? Copy to: ?JULIET AGUSTIN LNIER-SHOLLER MD ? Specimen/ Type: ?B one Marrow - ??Flow Cytometry ? 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 Immunophenotype Analysis ? Date Tested: ??09/23/08 ? Description: ? The specimen consists of bon e marrow that is by Ficoll-Hypaque density gradient centrifugation. ??G ating is performed using CD45 fluorescence and side ?? scatter. ??Cellular viabilit y (assessed by propidium iodide exclusion) is ? excellent (100%) among cells with CD45 and side scatter properties typical of ?? lymphocytes and excellent (9 9%) among CD45+ events overall. ??Expression of the ?? following markers is tested: ??CD2, CD3, CD4, CD5, CD7, CD8, CD10, CD11b, CD11c, CD13, CD14, CD16, CD19, CD20 , CD22, CD23, CD33, CD34, CD38, CD45, CD56, CD57, ?? CD117, FMC-7, HLA-DR, kappa light chain, lambda light chain. ? A majority of the lymphoid c ells are T-lymphocytes (CD2+CD3+CD5+CD7+) with CD4+ and CD8+ subsets represented . ??The remaining lymphocytes are rare B-lymphocytes (CD19+CD20+CD22+) and NK-renetta ls (CD2+CD3-CD16+CD56+). B-cells are too few in ? number to permit definitive assessment with regard to light chain restriction. ?? The remainder of the CD45+ e vents is predominantly of myeloid lineage. ??No ? myeloblasts are detected. ?? A population of CD34+ hematogones is present. ? The results of flow cytometr y show no immunophenotypic evidence of involvement ?? by a clonal myeloproliferati ve disorder. ??The results are consistent with a ? mixed population of hematopo ietic cells. ??No myeloblasts are detected. ? Correlation of these finding s with morphologic and clinical data is essential; ?? please refer to bone marrow report ([id number]) for morphologic details. ? Final Immunophenotypic Inter pretation: ? Bone marrow, flow cyt ometric analysis: ? No immunophenotypic e vidence of a clonal cell population. ??No myeloblasts ?? detected. ??See description. ? This test was developed and its performance characteristics determined by the ?? Department of Pathology and Laboratory Medicine, [facility], ? [employer]. ??It has not been cleared or approved by the U.S. Food and Drug ?? Administration. ? Document reviewed and electr onically signed by: ? RONAN IGLESIAS MD ? Report Date: ??08/02/2008 14 :46 ? By the signature above, the attending physician certifies that he/she has ? personally conducted an eval uation of the described specimen and rendered or ? confirmed the above diagnosi s. ? End of Report ? Specimen Performing Organization Address City/State/ZIP Code Phon e Number [facility] [address] [place] [address] SERVICES [facility] [address] [place] [address] CSF CELL COUNT (08/01/2008 14:00 EDT) RBC, CSF 48 /cmm [facility] Nucleated Cells 1 0 - 10 /cmm [facility] Total Vol. 6.0 ml [facility] Tube Cntd. 2 [facility] Total Vol. 3.0 ml [facility] Comment Clear and Colorless [facility] Specimen Performing Organization Address [facility]/ZIP Code Phon e Number [facility] [address] [place] [address] SERVICES [facility] [address] [place] [address] TOTAL PROTEIN, CSF (08/01/2008 14:00 EDT) Pathologist Sig nature Total Protein, CSF 21 mg/dl [facility] Specimen Performing Organization Address [facility] Code Phon e Number [facility] [address] [place] [address] SERVICES [facility] [address] [place] [address] GLUCOSE CSF (08/01/2008 14:00 EDT) Pathologist Sig nature Glucose, CSF 52 mg/dl [facility] Comment: Ref Range=60-80% of plasma glucose result Specimen Performing Organization Address [facility] Phon e Number [facility] [address] [place] [address] SERVICES [facility] [address] [place] [address] FLUID DIFFERENTIAL (08/01/2008 14:00 EDT) Pathologist Sig nature Neutrophils, CSF 2 0 - 6 % [facility] Lymphocyte, CSF 76 40 - 80 % [facility] Creek/Macro, CSF 22 15 - 45 % [facility] Cells Counted 46 [facility] Comment Reviewed by Dr. DARRIAN Iglesias Specimen Performing Organization Address [facility] Phon e Number [facility] [address] [place] [address] SERVICES [facility] [address] [place] [address] documented in this encounter Visit Diagnoses Not on filedocumented in this encounter
--- OUTSIDE RECORDS SUMMARY | 2022-05-10 08:32 | XMS_ITS | Encounter Summary ---
:2002 Author Organization [facility] Address [address] [place] [address] Care Team Providers Name Role Phone Unavailable Primary Care Provider Unavailable Encounter Details Date Type Department Care Team Description 09/05/2008 - Hospital Encounter [facility] Children's Radhames Deras MD [address] [place] [id number] 10/03/2008 [facility] Pediatric Juliet James MD [address] [place] [phone] [address] [place] [address] Social History Tobacco Use Types Packs/Day Years Used Date Never Assessed Sex Assigned at Date Recorded Not on file documented as of this encounter Discharge Summaries Mellissa Oscar MD - 05/26/2009 0056 EDT HISS DISCHARGE SUMMARY ADDRESS: [address] [place] [id number] PHONE: [phone] ATTENDING PHYSICIAN: SARITA DERAS MD ADDRESS: [address] [place] [address] PHONE: [phone] REFERRING PHYSICIAN: ELIDA DUNAWAY MD ADDRESS: [facility] [address] [place] [address] PHONE: [phone] ADMISSION DATE: 09/05/08 SERVICE: PED. MEDICINE TRANSFER TO : DISCHARGE DATE: 10/03/08 SERVICE: PED. MEDICINE CHIEF COMPLAINT / REASON FOR ADMISSION: AML, chemotherapy PRINCIPAL/FINAL DIAGNOSIS: AML s/p intesification chemo II PRINCIPAL PROCEDURE: Lumbar puncture Broviac placement Bone marrow biopsy COMPLICATIONS/CO-MORBID CONDTITIONS: neutropenia bactermia with alpha strep CONDITION AT DISCHARGE: Stable Improved RELEVANT STUDIES: CT sinus 09/22: no acute sinusitis PENDING RESULTS AND ORDERS: CBC and diff to be drawn on 10/04 (by home health) DISPOSITION AT DISCHARGE: Home with home health services - Nursing for lab draw ALLERGIES: The following allergies were reported by [...] SUSPENSION, FRIDAY, FRIDAY, FRIDAY, BY MOUTH 2) LIDOCAINE-PRILOCAINE / (emla) APPLY CREAM, ANY (NO SET SCHEDULE), TOPICALLY, NEEDED 3) PANTOPRAZOLE / (protonix) 40MG ENTERIC COATED TABLET, ONCE A DAY, BY MOUTH 4) CHLORHEXIDINE GLUCONATE / (peridex) 15ML SOLUTION, EVERY 12 HOURS, SWISH & *SPIT*, NEEDED 5) ONDANSETRON ODT / (zofran odt) 4MG TABLET, EVERY 8 HOURS, BY MOUTH, NEEDED 6) ACETAMINOPHEN / (tylenol) 420MG SOLUTION, EVERY 4 HOURS, BY MOUTH, NEEDED 7) PHENYLEPHRINE NASAL SPRAY / (tiana-synephrine) 1-3SPRAYS SOLUTION, EVERY 4 HOURS, IN NOSE, NEEDED OTHER MEDICATION ORDERS: Bactrim inpatient is Sulfamethoxazole/Trimethoprim Grape flavor 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 Can be ordered by pharmacy, they need to specify no substitution as this is a generic. PNEUMOCYSTITIS PREVENTION: Bactrim MEDICATIONS YOU WERE TAKING PRIOR TO ADMISSION THAT SHOULD BE STOPPED: NONE HERBAL REMEDIES, NUTRITIONAL SUPPLEMENTS, AND ITCV-DJS-ABEVWCO MEDICATIONS that have not been prescribed by a physician may have significant adverse side effect or may interfere with the medications that have been prescribed for you. If you are taking herbal remedies, nutritional supplements, or qvud-nrq-hhmxpqt medications you are strongly encouraged to discontinue their use until you have discussed your use of these products with your primary care physician. UPON ADMISSION YOU LISTED THE FOLLOWING HERBAL/SUPPLEMENTS/OTC: NONE VITAL SIGNS AT DISCHARGE: Weight at admission 27.4kg Weight at discharge 26.4 kg Temperature afebrile HOSPITAL COURSE: 8 y/o male with AML diagnosed initially 05/17 admitted for intensification chemo II (cytarabine, gentuzumab, and mitoxantrone). Pt had lumbar puncture, bone marrow biopsy and broviac placement prior to being admitted on 09/05. HEME/ONC: Pt tolerated and finished cytarabine, gentuzumab, mitoxantrone on 09/11. Daily CBC with diffs were checked. Pt became neutropenic on 09/08. Pt received multiple transfusions of platelets and leukodepleted/X-irradiated PRBCs pretreated with benadryl and tylenol. Pt counts began to recover on 09/27. By discharge pt's WBC 1.32, ANC 130, Hgb 9.4, Plts 18 (then transfused one pack of platelets before d/c). ID: Pt continued on Bactrim prophylaxis. Pt became febrile on 09/19. Pt treated initially with vancomycin, ceftazidime. Pt continued to be febrile and Meropenem and Capsofungin added. CXR normal. Initial blood cultures grew alpha hemolytic strep. ID consulted and antibiotics were narrowed. Pt continued treatment with Vancomycin, Meropenem and Capsofungin per ID recommendations. Further blood cultures were negative. CT sinus and lung were normal. 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 Acyclovir was not started due to previous allergic reaction and showed improvement per ID. Will consider prophylaxis treatment for HSV1 for future chemo cycles. Pt became afebrile on 09/27. Pt was discontinued on antibiotics on 10/03. Pt remained afebrile throughout rest of hospitalization. FEN/GI: Pt continued on protonix and zofran prophylaxis. Pt started on TPN/IL on 09/22 for poor nutrition. Nutrition consulted. Pt began tolerating more PO on 10/02 and TPN/IL were discontinued. Pt was discharged home on 10/03 in good conditoin. He will get a CBC and diff drawn in the afternnoon of 10/04 and will follow-up appointment with HEME/ONC on ____. PCP updated upon discharge. DIET: Regular diet ACTIVITY: No restrictions on activity SKIN/WOUND CARE: Sofía martinezviac dressing change done today 10/03 by JUAQUIN Cohen RN SHOWERING AND BATHING: No restrictions HOME CARE SKILLED SERVICES: Registered Nurse Referral - please resume previous orders. Lab draw 10/04 WATCH OUT FOR: Mouth sores (methotrexate, adriamycin) Tiredness (anemia) Bruising (low platelets) Fevers - any over 101.5 or repeated over 100 degrees FOLLOW UP APPOINTMENTS: next expected clinic visit 10/10/08 for: Physical exam Home nursing to draw CBC with diff Friday (10/04) afternoon Discussion of next phase of therapy Possible admission POST DISCHARGE LAB REQUISITION - Bring this request with you to the lab. TO BE DONE ON: 10/04/08 REASON FOR TEST(S)/DIAGNOSIS: AML with neutropenia ORDERING ATTENDING: SARITA DERAS MD CALL RESULTS TO PROVIDER: Dr. Sarita Deras PHONE: [phone] CBC with diff HOME HEALTH CARE REFERRAL SERVICES: N/A _ completed _ called _ faxed _ offered/declined _ Previously followed by: [facility] Initial call by: Iqra Alanis RN Day of discharge referral call by: on __/__/__ @ __:__ Spoke with: / Agency: Date/time of first visit needed: 10/04/08 HOME INFUSION: Last flushed 10/03 08 red port flushed with normal saline and Heparin BARRIERS TO LEARNING: None PATIENT/FAMILY EDUCATION - LEARNER: Patient Mother Father cc: Patient chart MD ELIDA HANCOCK MD KARYN M. PATNO, MD [facility] [address] [place] [address] END OF REPORT D: MELLISSA GODOY MD A - ZOHDocument ID: [id number] documented in this encounter Discharge Disposition Disposition Code Departure Means Destination Home-Health Care Svc documented in this encounter Plan of Treatment Upcoming Encounters Date Type Specialty Care Team Description 12/18/2022 Ancillary Procedure Cardiology 12/18/2022 Office Visit Cardiology Bg Kelsey MD [address] [facility], [facility], [address] [place], [place] [phone] (Wo rk) documented as of this encounter Procedures Procedure Name Priority Date/Time Associated Comments Diagnosis COMPLETE BLOOD COUNT Routine 10/03/2008 3:15 Resu lts for this AND DIFFERENTIAL EST procedure a re in the results section. GLUCOSE, GLUCOMETER Routine 10/02/2008 4:45 Resul ts for this EST procedure are i n the results section. COMPLETE BLOOD COUNT Routine 10/02/2008 4:30 Resu lts for this AND DIFFERENTIAL EST procedure a re in the results section. BUN Routine 10/02/2008 4:30 Results for this EST procedure are i n the results section. PHOSPHORUS Routine 10/02/2008 4:30 Results for this EST procedure are i n the results section. MAGNESIUM Routine 10/02/2008 4:30 Results for this EST procedure are i n the results section. CREATININE Routine 10/02/2008 4:30 Results for this EST procedure are i n the results section. ELECTROLYTES Routine 10/02/2008 4:30 Results for this EST procedure are i n the results section. COMPLETE BLOOD COUNT Routine 10/01/2008 5:00 Resu lts for this AND DIFFERENTIAL EST procedure a re in the results section. BUN Routine 10/01/2008 5:00 Results for this EST procedure are i n the results section. PHOSPHORUS Routine 10/01/2008 5:00 Results for this EST procedure are i n the results section. MAGNESIUM Routine 10/01/2008 5:00 Results for this EST procedure are i n the results section. CREATININE Routine 10/01/2008 5:00 Results for this EST procedure are i n the results section. ELECTROLYTES Routine 10/01/2008 5:00 Results for this EST procedure are i n the results section. COMPLETE BLOOD COUNT Routine 09/30/2008 4:40 Resu lts for this AND DIFFERENTIAL EST procedure a re in the results section. BUN Routine 09/30/2008 4:40 Results for this EST procedure are i n the results section. PHOSPHORUS Routine 09/30/2008 4:40 Results for this EST procedure are i n the results section. MAGNESIUM Routine 09/30/2008 4:40 Results for this EST procedure are i n the results section. CREATININE Routine 09/30/2008 4:40 Results for this EST procedure are i n the results section. ELECTROLYTES Routine 09/30/2008 4:40 Results for this EST procedure are i n the results section. GLUCOSE, GLUCOMETER Routine 09/29/2008 14:12 Resu lts for this EST procedure are i n the results section. COMPLETE BLOOD COUNT Routine 09/29/2008 5:05 Resu lts for this AND DIFFERENTIAL EST procedure a re in the results section. BUN Routine 09/29/2008 5:05 Results for this EST procedure are i n the results section. TRIGLYCERIDE Routine 09/29/2008 5:05 Results for this EST procedure are i n the results section. PREALBUMIN Routine 09/29/2008 5:05 Results for this EST procedure are i n the results section. PHOSPHORUS Routine 09/29/2008 5:05 Results for this EST procedure are i n the results section. MAGNESIUM Routine 09/29/2008 5:05 Results for this EST procedure are i n the results section. GLUCOSE, SERUM Routine 09/29/2008 5:05 Results fo r this EST procedure are i n the results section. CREATININE Routine 09/29/2008 5:05 Results for this EST procedure are i n the results section. CALCIUM Routine 09/29/2008 5:05 Results for this EST procedure are i n the results section. ELECTROLYTES Routine 09/29/2008 5:05 Results for this EST procedure are i n the results section. CMV QUANTITATIVE BY Routine 09/28/2008 5:05 Resul ts for this PCR EST procedure are i n the results section. COMPLETE BLOOD COUNT Routine 09/28/2008 5:05 Resu lts for this AND DIFFERENTIAL EST procedure a re in the results section. BUN Routine 09/28/2008 5:05 Results for this EST procedure are i n the results section. TRIGLYCERIDE Routine 09/28/2008 5:05 Results for this EST procedure are i n the results section. PHOSPHORUS Routine 09/28/2008 5:05 Results for this EST procedure are i n the results section. MAGNESIUM Routine 09/28/2008 5:05 Results for this EST procedure are i n the results section. GLUCOSE, SERUM Routine 09/28/2008 5:05 Results fo r this EST procedure are i n the results section. CREATININE Routine 09/28/2008 5:05 Results for this EST procedure are i n the results section. ELECTROLYTES Routine 09/28/2008 5:05 Results for this EST procedure are i n the results section. CT CHEST WO CONTRAST 09/27/2008 10:06 Res ults for this EST procedure are i n the results section. CMV ANTIGENEMIA ASSAY Routine 09/27/2008 8:15 Res ults for this EST procedure are i n the results section. TRIGLYCERIDE Routine 09/27/2008 8:15 Results for this EST procedure are i n the results section. GLUCOSE, SERUM Routine 09/27/2008 8:15 Results fo r this EST procedure are i n the results section. PTT Routine 09/27/2008 6:05 Results for this EST procedure are i n the results section. PROTIME Routine 09/27/2008 6:05 Results for this EST procedure are i n the results section. COMPLETE BLOOD COUNT Routine 09/27/2008 6:05 Resu lts for this AND DIFFERENTIAL EST procedure a re in the results section. TOTAL & DIRECT Routine 09/27/2008 6:05 Results fo r this BILIRUBIN EST procedure are i n the results section. BUN Routine 09/27/2008 6:05 Results for this EST procedure are i n the results section. TRIGLYCERIDE Routine 09/27/2008 6:05 Results for this EST procedure are i n the results section. ALT Routine 09/27/2008 6:05 Results for this EST procedure are i n the results section. AST Routine 09/27/2008 6:05 Results for this EST procedure are i n the results section. PHOSPHORUS Routine 09/27/2008 6:05 Results for this EST procedure are i n the results section. ALKALINE PHOSPHATASE Routine 09/27/2008 6:05 Resu lts for this EST procedure are i n the results section. MAGNESIUM Routine 09/27/2008 6:05 Results for this EST procedure are i n the results section. GLUCOSE, SERUM Routine 09/27/2008 6:05 Results fo r this EST procedure are i n the results section. CREATININE Routine 09/27/2008 6:05 Results for this EST procedure are i n the results section. ELECTROLYTES Routine 09/27/2008 6:05 Results for this EST procedure are i n the results section. FUNGUS CULTURE, BLOOD Routine 09/26/2008 22:10 Re sults for this EST procedure are i n the results section. FUNGUS CULTURE, BLOOD Routine 09/26/2008 22:10 Re sults for this EST procedure are i n the results section. BACTERIAL CULTURE, Routine 09/26/2008 22:10 Resul ts for this BLOOD EST procedure are i n the results section. BACTERIAL CULTURE, Routine 09/26/2008 22:10 Resul ts for this BLOOD EST procedure are i n the results section. IGG Routine 09/26/2008 13:05 Results for this EST procedure are i n the results section. GLUCOSE, GLUCOMETER Routine 09/26/2008 13:04 Resu lts for this EST procedure are i n the results section. HSV (ONLY) CULTURE Routine 09/26/2008 11:45 Resul ts for this EST procedure are i n the results section. HSV (ONLY) CULTURE Routine 09/26/2008 11:45 Resul ts for this EST procedure are i n the results section. PTT Routine 09/26/2008 3:50 Results for this EST procedure are i n the results section. PROTIME Routine 09/26/2008 3:50 Results for this EST procedure are i n the results section. COMPLETE BLOOD COUNT Routine 09/26/2008 3:50 Resu lts for this AND DIFFERENTIAL EST procedure a re in the results section. TOTAL & DIRECT Routine 09/26/2008 3:50 Results fo r this BILIRUBIN EST procedure are i n the results section. BUN Routine 09/26/2008 3:50 Results for this EST procedure are i n the results section. TRIGLYCERIDE Routine 09/26/2008 3:50 Results for this EST procedure are i n the results section. ALT Routine 09/26/2008 3:50 Results for this EST procedure are i n the results section. AST Routine 09/26/2008 3:50 Results for this EST procedure are i n the results section. PREALBUMIN Routine 09/26/2008 3:50 Results for this EST procedure are i n the results section. PHOSPHORUS Routine 09/26/2008 3:50 Results for this EST procedure are i n the results section. ALKALINE PHOSPHATASE Routine 09/26/2008 3:50 Resu lts for this EST procedure are i n the results section. MAGNESIUM Routine 09/26/2008 3:50 Results for this EST procedure are i n the results section. CREATININE Routine 09/26/2008 3:50 Results for this EST procedure are i n the results section. CALCIUM Routine 09/26/2008 3:50 Results for this EST procedure are i n the results section. ELECTROLYTES Routine 09/26/2008 3:50 Results for this EST procedure are i n the results section. URINE MICROSCOPIC Routine 09/25/2008 8:30 Results for this EST procedure are i n the results section. URINALYSIS WITH Routine 09/25/2008 8:30 Results f or this MICROSCOPIC IF EST procedure are in POSITIVE the results section. COMPLETE BLOOD COUNT Routine 09/25/2008 4:00 Resu lts for this AND DIFFERENTIAL EST procedure a re in the results section. GLUCOSE, SERUM Routine 09/25/2008 4:00 Results fo r this EST procedure are i n the results section. URINE MICROSCOPIC Routine 09/24/2008 17:30 Result s for this EST procedure are i n the results section. URINALYSIS WITH Routine 09/24/2008 17:30 Results for this MICROSCOPIC IF EST procedure are in POSITIVE the results section. PTT Routine 09/24/2008 3:40 Results for this EST procedure are i n the results section. PROTIME Routine 09/24/2008 3:40 Results for this EST procedure are i n the results section. COMPLETE BLOOD COUNT Routine 09/24/2008 3:40 Resu lts for this AND DIFFERENTIAL EST procedure a re in the results section. TOTAL & DIRECT Routine 09/24/2008 3:40 Results fo r this BILIRUBIN EST procedure are i n the results section. BUN Routine 09/24/2008 3:40 Results for this EST procedure are i n the results section. TRIGLYCERIDE Routine 09/24/2008 3:40 Results for this EST procedure are i n the results section. ALT Routine 09/24/2008 3:40 Results for this EST procedure are i n the results section. AST Routine 09/24/2008 3:40 Results for this EST procedure are i n the results section. PHOSPHORUS Routine 09/24/2008 3:40 Results for this EST procedure are i n the results section. ALKALINE PHOSPHATASE Routine 09/24/2008 3:40 Resu lts for this EST procedure are i n the results section. MAGNESIUM Routine 09/24/2008 3:40 Results for this EST procedure are i n the results section. GLUCOSE, SERUM Routine 09/24/2008 3:40 Results fo r this EST procedure are i n the results section. CREATININE Routine 09/24/2008 3:40 Results for this EST procedure are i n the results section. CALCIUM Routine 09/24/2008 3:40 Results for this EST procedure are i n the results section. ELECTROLYTES Routine 09/24/2008 3:40 Results for this EST procedure are i n the results section. FUNGUS CULTURE, BLOOD Routine 09/23/2008 4:45 Res ults for this EST procedure are i n the results section. FUNGUS CULTURE, BLOOD Routine 09/23/2008 4:45 Res ults for this EST procedure are i n the results section. BACTERIAL CULTURE, Routine 09/23/2008 4:45 Result s for this BLOOD EST procedure are i n the results section. BACTERIAL CULTURE, Routine 09/23/2008 4:45 Result s for this BLOOD EST procedure are i n the results section. PTT Routine 09/23/2008 4:05 Results for this EST procedure are i n the results section. PROTIME Routine 09/23/2008 4:05 Results for this EST procedure are i n the results section. COMPLETE BLOOD COUNT Routine 09/23/2008 4:05 Resu lts for this AND DIFFERENTIAL EST procedure a re in the results section. TOTAL & DIRECT Routine 09/23/2008 4:05 Results fo r this BILIRUBIN EST procedure are i n the results section. BUN Routine 09/23/2008 4:05 Results for this EST procedure are i n the results section. TRIGLYCERIDE Routine 09/23/2008 4:05 Results for this EST procedure are i n the results section. ALT Routine 09/23/2008 4:05 Results for this EST procedure are i n the results section. AST Routine 09/23/2008 4:05 Results for this EST procedure are i n the results section. PHOSPHORUS Routine 09/23/2008 4:05 Results for this EST procedure are i n the results section. ALKALINE PHOSPHATASE Routine 09/23/2008 4:05 Resu lts for this EST procedure are i n the results section. MAGNESIUM Routine 09/23/2008 4:05 Results for this EST procedure are i n the results section. CREATININE Routine 09/23/2008 4:05 Results for this EST procedure are i n the results section. CALCIUM Routine 09/23/2008 4:05 Results for this EST procedure are i n the results section. ELECTROLYTES Routine 09/23/2008 4:05 Results for this EST procedure are i n the results section. VANCOMYCIN TROUGH Routine 09/22/2008 16:15 Result s for this EST procedure are i n the results section. CT SINUS COMPLETE WO 09/22/2008 13:21 Res ults for this CONTRAST EST procedure are i n the results section. COMPLETE BLOOD COUNT Routine 09/22/2008 4:00 Resu lts for this AND DIFFERENTIAL EST procedure a re in the results section. FUNGUS CULTURE, BLOOD Routine 09/21/2008 18:00 Re sults for this EST procedure are i n the results section. FUNGUS CULTURE, BLOOD Routine 09/21/2008 18:00 Re sults for this EST procedure are i n the results section. BACTERIAL CULTURE, Routine 09/21/2008 18:00 Resul ts for this BLOOD EST procedure are i n the results section. BACTERIAL CULTURE, Routine 09/21/2008 18:00 Resul ts for this BLOOD EST procedure are i n the results section. COMPLETE BLOOD COUNT Routine 09/21/2008 5:05 Resu lts for this AND DIFFERENTIAL EST procedure a re in the results section. BACTERIAL CULTURE, Routine 09/20/2008 19:52 Resul ts for this BLOOD EST procedure are i n the results section. BACTERIAL CULTURE, Routine 09/20/2008 19:45 Resul ts for this BLOOD EST procedure are i n the results section. COMPLETE BLOOD COUNT Routine 09/20/2008 19:45 Res ults for this AND DIFFERENTIAL EST procedure a re in the results section. COMPLETE BLOOD COUNT Routine 09/20/2008 9:45 Resu lts for this AND DIFFERENTIAL EST procedure a re in the results section. COMPLETE BLOOD COUNT Routine 09/20/2008 2:40 Resu lts for this EST procedure are i n the results section. PORTABLE CHEST 1 VIEW 09/20/2008 0:31 Res ults for this EST procedure are i n the results section. COMPLETE BLOOD COUNT Routine 09/20/2008 0:30 Resu lts for this AND DIFFERENTIAL EST procedure a re in the results section. FUNGUS CULTURE, BLOOD Routine 09/19/2008 15:53 Re sults for this EST procedure are i n the results section. BACTERIAL CULTURE, Routine 09/19/2008 15:53 Resul ts for this BLOOD EST procedure are i n the results section. FUNGUS CULTURE, BLOOD Routine 09/19/2008 15:52 Re sults for this EST procedure are i n the results section. BACTERIAL CULTURE, Routine 09/19/2008 15:52 Resul ts for this BLOOD EST procedure are i n the results section. TESTS ADDED BY PHONE Routine 09/19/2008 4:55 Resu lts for this EST procedure are i n the results section. COMPLETE BLOOD COUNT Routine 09/19/2008 4:55 Resu lts for this AND DIFFERENTIAL EST procedure a re in the results section. TOTAL & DIRECT Routine 09/19/2008 4:55 Results fo r this BILIRUBIN EST procedure are i n the results section. BUN Routine 09/19/2008 4:55 Results for this EST procedure are i n the results section. ALT Routine 09/19/2008 4:55 Results for this EST procedure are i n the results section. AST Routine 09/19/2008 4:55 Results for this EST procedure are i n the results section. ALKALINE PHOSPHATASE Routine 09/19/2008 4:55 Resu lts for this EST procedure are i n the results section. GLUCOSE, SERUM Routine 09/19/2008 4:55 Results fo r this EST procedure are i n the results section. CREATININE Routine 09/19/2008 4:55 Results for this EST procedure are i n the results section. ELECTROLYTES Routine 09/19/2008 4:55 Results for this EST procedure are i n the results section. COMPLETE BLOOD COUNT Routine 09/18/2008 4:15 Resu lts for this AND DIFFERENTIAL EST procedure a re in the results section. COMPLETE BLOOD COUNT Routine 09/17/2008 5:05 Resu lts for this AND DIFFERENTIAL EST procedure a re in the results section. COMPLETE BLOOD COUNT Routine 09/16/2008 5:16 Resu lts for this AND DIFFERENTIAL EST procedure a re in the results section. COMPLETE BLOOD COUNT Routine 09/15/2008 4:30 Resu lts for this AND DIFFERENTIAL EST procedure a re in the results section. COMPLETE BLOOD COUNT Routine 09/14/2008 4:25 Resu lts for this AND DIFFERENTIAL EST procedure a re in the results section. TOTAL & DIRECT Routine 09/14/2008 4:25 Results fo r this BILIRUBIN EST procedure are i n the results section. BUN Routine 09/14/2008 4:25 Results for this EST procedure are i n the results section. ALT Routine 09/14/2008 4:25 Results for this EST procedure are i n the results section. AST Routine 09/14/2008 4:25 Results for this EST procedure are i n the results section. PROTEIN, TOTAL Routine 09/14/2008 4:25 Results fo r this EST procedure are i n the results section. CREATININE Routine 09/14/2008 4:25 Results for this EST procedure are i n the results section. ALBUMIN Routine 09/14/2008 4:25 Results for this EST procedure are i n the results section. ELECTROLYTES Routine 09/14/2008 4:25 Results for this EST procedure are i n the results section. URINE CULTURE IF Routine 09/13/2008 14:50 Results for this POSITIVE EST procedure are i n the results section. URINE CHEMICAL (DIP) & Routine 09/13/2008 14:50 R esults for this SEDIMENT (MICRO) EST procedure a re in WITHOUT REFLEX TO the result s CULTURE section. COMPLETE BLOOD COUNT Routine 09/13/2008 5:10 Resu lts for this AND DIFFERENTIAL EST procedure a re in the results section. COMPLETE BLOOD COUNT Routine 09/12/2008 4:45 Resu lts for this AND DIFFERENTIAL EST procedure a re in the results section. COMPLETE BLOOD COUNT Routine 09/11/2008 3:45 Resu lts for this AND DIFFERENTIAL EST procedure a re in the results section. COMPLETE BLOOD COUNT Routine 09/10/2008 4:50 Resu lts for this AND DIFFERENTIAL EDT procedure a re in the results section. COMPLETE BLOOD COUNT Routine 09/09/2008 5:15 Resu lts for this AND DIFFERENTIAL EDT procedure a re in the results section. COMPLETE BLOOD COUNT Routine 09/08/2008 4:35 Resu lts for this AND DIFFERENTIAL EDT procedure a re in the results section. BUN Routine 09/08/2008 4:35 Results for this EDT procedure are i n the results section. CREATININE Routine 09/08/2008 4:35 Results for this EDT procedure are i n the results section. ELECTROLYTES Routine 09/08/2008 4:35 Results for this EDT procedure are i n the results section. FUNGUS CULTURE, BLOOD Routine 09/07/2008 3:50 Res ults for this EDT procedure are i n the results section. FUNGUS CULTURE, BLOOD Routine 09/07/2008 3:50 Res ults for this EDT procedure are i n the results section. BACTERIAL CULTURE, Routine 09/07/2008 3:50 Result s for this BLOOD EDT procedure are i n the results section. BACTERIAL CULTURE, Routine 09/07/2008 3:50 Result s for this BLOOD EDT procedure are i n the results section. COMPLETE BLOOD COUNT Routine 09/07/2008 3:50 Resu lts for this AND DIFFERENTIAL EDT procedure a re in the results section. BUN Routine 09/07/2008 3:50 Results for this EDT procedure are i n the results section. CREATININE Routine 09/07/2008 3:50 Results for this EDT procedure are i n the results section. ELECTROLYTES Routine 09/07/2008 3:50 Results for this EDT procedure are i n the results section. COMPLETE BLOOD COUNT Routine 09/06/2008 4:30 Resu lts for this AND DIFFERENTIAL EDT procedure a re in the results section. BUN Routine 09/06/2008 4:30 Results for this EDT procedure are i n the results section. CREATININE Routine 09/06/2008 4:30 Results for this EDT procedure are i n the results section. ELECTROLYTES Routine 09/06/2008 4:30 Results for this EDT procedure are i n the results section. CELL COUNT,CSF Routine 09/05/2008 12:07 Results f or this EDT procedure are i n the results section. FLUID DIFFERENTIAL Routine 09/05/2008 12:07 Resul ts for this EDT procedure are i n the results section. TOTAL PROTEIN, CSF Routine 09/05/2008 12:07 Resul ts for this EDT procedure are i n the results section. GLUCOSE CSF Routine 09/05/2008 12:07 Results for this EDT procedure are i n the results section. PRELIMINARY BONE Routine 09/05/2008 11:40 Results for this MARROW EDT procedure are i n the results section. FLOW CYTOMETRY Routine 09/05/2008 11:40 Results f or this EDT procedure are i n the results section. SLIDE REQUEST Routine 09/05/2008 10:50 Results fo r this EDT procedure are i n the results section. COMPLETE BLOOD COUNT Routine 09/05/2008 10:50 Res ults for this AND DIFFERENTIAL EDT procedure a re in the results section. BILIRUBIN Routine 09/05/2008 10:50 Results for this DIRECT/INDIRECT EDT procedure ar e in the results section. PHOSPHORUS Routine 09/05/2008 10:50 Results for this EDT procedure are i n the results section. MAGNESIUM Routine 09/05/2008 10:50 Results for this EDT procedure are i n the results section. COMPREHENSIVE Routine 09/05/2008 10:50 Results fo r this METABOLIC PANEL (CMP) EDT proced ure are in the results section. documented in this encounter Results (ABNORMAL) HEMAGRAM AND DIFFERENTIAL (10/03/2008 3:15 EST) WBC 1.32 (L) 4.5 - 13.5 [facility] K/cmm LAB RBC 3.09 (L) 4.00 - 6.20 [facility] M/cmm LAB Hemoglobin 9.4 (L) 11.5 - 15.5 [facility] gm/dl LAB HCT 25.6 (L) 35.0 - 45.0 % [facility] MCV 83 77 - 95 fl [facility] MCH 30.2 pg [facility] MCHC 36.5 gm/dl [facility] PLT 18 (LL) 156 - 312 [facility] K/cmm LAB RDW-CV 13.3 % [facility] Neutrophils 10.0 % [facility] Lymphocytes 77.0 % [facility] Monocytes 11.0 % [facility] Metamyelocytes 2.0 % [facility] ABS Neutrophils 0.13 (LL) K/cmm [facility] ABS Lymphs 1.01 K/cmm [facility] ABS Monocytes 0.15 K/cmm [facility] ABS Metamyelocytes 0.03 K/cmm [facility] RBC Morphology 1+ Poikilocytosis [facility] 1+ Ovalocytes LAB 1+ Target cells WBC Morphology 1+ Smudge cells [facility] Type of Diff: Manual [facility] Specimen Performing Organization Address City/[facility] Code Phon e Number [facility] [address] [place] [address] SERVICES [facility] [address] [place] [address] GLUCOSE, GLUCOMETER (10/02/2008 4:45 EST) Glucose, 80 70 - 100 [facility] Fingerstick mg/dl LAB [employer] Counter Associate ID [id number] [facility] Test Performed by Nursing Services LAB Specimen Performing Organization Address City/[facility]/ZIP Code Phon e Number [facility] [address] [place] [address] SERVICES [facility] [address] [place] [address] PHOSPHORUS (10/02/2008 4:30 EST) Pathologist Sig nature Phosphorus 4.4 4.1 - 5.4 mg/dl [facility] LAB Specimen Performing Organization Address City/[facility]/ZIP Code Phon e Number [facility] [address] [place] [address] SERVICES [facility] [address] [place] [address] MAGNESIUM (10/02/2008 4:30 EST) Pathologist Sig nature Magnesium 2.5 1.7 - 2.8 mg/dl [facility] Specimen Performing Organization Address [facility]/ZIP Code Phon e Number [facility] [address] [place] [address] SERVICES [facility] [address] [place] [address] CREATININE (10/02/2008 4:30 EST) Pathologist Sig nature Creatinine 0.51 0.1 - 0.7 mg/dl [facility] GFR, Calculated Age <18 ml/min/1.73m2 [facility] Specimen Performing Organization Address [facility] Code Phon e Number [facility] [address] [place] [address] SERVICES [facility] [address] [place] [address] BUN (10/02/2008 4:30 EST) Pathologist Sig nature BUN 16 7 - 18 mg/dl [facility] Specimen Performing Organization Address [facility]/ZIP Code Phon e Number [facility] [address] [place] [address] SERVICES [facility] [address] [place] [address] ELECTROLYTES (10/02/2008 4:30 EST) Pathologist Sig nature Sodium 140 136 - 145 mEq/L [facility] Potassium 4.3 3.6 - 5.2 mEq/L [facility] Chloride 101 96 - 110 mEq/L [facility] CO2 27 24 - 32 mEq/L [facility] Specimen Performing Organization Address City/[facility]/ZIP Code Phon e Number [facility] [address] [place] [address] SERVICES [facility] [address] [place] [address] (ABNORMAL) HEMAGRAM AND DIFFERENTIAL (10/02/2008 4:30 EST) WBC 1.19 (L) 4.5 - 13.5 [facility] K/cmm RBC 3.44 (L) 4.00 - 6.20 [facility] M/cmm Hemoglobin 10.5 (L) 11.5 - 15.5 [facility] gm/dl HCT 29.0 (L) 35.0 - 45.0 % [facility] MCV 84 77 - 95 fl [facility] MCH 30.4 pg [facility] MCHC 36.1 gm/dl [facility] PLT 20 (LL) 156 - 312 [facility] K/cmm RDW-CV 13.4 % [facility] Neutrophils 10.0 % [facility] Lymphocytes 64.0 % [facility] Atyp Lymphs 2.0 % [facility] Monocytes 23.0 % [facility] Blasts 1.0 % [facility] ABS Neutrophils 0.12 (LL) K/cmm [facility] ABS Lymphs 0.77 K/cmm [facility] ABS Atyp Lymphs 0.02 K/cmm [facility] ABS Monocytes 0.27 K/cmm [facility] ABS Blasts 0.01 K/cmm [facility] RBC Morphology 1+ Anisocytosis [facility] 1+ Microcytes 1+ Poikilocytosis Type of Diff: Manual [facility] Specimen Performing Organization Address City/State/ZIP Code Phon e Number [facility] [address] [place] [address] SERVICES [facility] [address] [place] [address] (ABNORMAL) HEMAGRAM AND DIFFERENTIAL (10/01/2008 5:00 EST) WBC 1.07 (L) 4.5 - 13.5 [facility] K/cmm RBC 3.56 (L) 4.00 - 6.20 [facility] M/cmm Hemoglobin Not Available 11.5 - 15.5 [facility] gm/dl HCT 29.7 (L) 35.0 - 45.0 % [facility] MCV 84 77 - 95 fl [facility] MCH Not calculated pg [facility] MCHC Not calculated gm/dl [facility] PLT 26 (L) 156 - 312 K/cmm [facility] RDW-CV 13.5 % [facility] Neutrophils 20.0 % [facility] Bands 1.0 % [facility] Lymphocytes 59.0 % [facility] Monocytes 20.0 % [facility] ABS Neutrophils 0.21 (LL) K/cmm [facility] ABS Bands 0.01 K/cmm [facility] ABS Lymphs 0.64 K/cmm [facility] ABS Monocytes 0.21 K/cmm [facility] RBC Morphology 1+ Anisocytosis [facility] Type of Diff: Manual [facility] Specimen Performing Organization Address [facility]/ZIP Code Phon e Number [facility] [address] [place] [address] SERVICES [facility] [address] [place] [address] PHOSPHORUS (10/01/2008 5:00 EST) Pathologist Sig nature Phosphorus 4.7 4.1 - 5.4 mg/dl [facility] Specimen Performing Organization Address [facility] Phon e Number [facility] [address] [place] [address] SERVICES [facility] [address] [place] [address] MAGNESIUM (10/01/2008 5:00 EST) Pathologist Sig nature Magnesium 2.5 1.7 - 2.8 mg/dl [facility] Specimen Performing Organization Address [facility] Phon e Number [facility] [address] [place] [address] SERVICES [facility] [address] [place] [address] CREATININE (10/01/2008 5:00 EST) Pathologist Sig nature Creatinine 0.40 0.1 - 0.7 mg/dl [facility] GFR, Calculated Age <18 ml/min/1.73m2 [facility] Specimen Performing Organization Address [facility]/ZIP Code Phon e Number [facility] [address] [place] [address] SERVICES [facility] [address] [place] [address] BUN (10/01/2008 5:00 EST) Pathologist Sig nature BUN 13 7 - 18 mg/dl [facility] Specimen Performing Organization Address [facility]/[place] [facility] Phon e Number [facility] [address] [place] [address] SERVICES [facility] [address] [place] [address] ELECTROLYTES (10/01/2008 5:00 EST) Pathologist Sig nature Sodium 142 136 - 145 mEq/L [facility] Potassium 4.5 3.6 - 5.2 mEq/L [facility] Chloride 104 96 - 110 mEq/L [facility] CO2 25 24 - 32 mEq/L [facility] Specimen Performing Organization Address City/[facility]/ZIP Code Phon e Number [facility] [address] [place] [address] SERVICES [facility] [address] [place] [address] (ABNORMAL) HEMAGRAM AND DIFFERENTIAL (09/30/2008 4:40 EST) Pathologist Sig nature WBC 0.76 (LL) 4.5 - 13.5 [facility] K/cmm RBC 3.32 (L) 4.00 - 6.20 [facility] M/cmm Hemoglobin 10.2 (L) 11.5 - 15.5 [facility] gm/dl HCT 27.9 (L) 35.0 - 45.0 % [facility] MCV 84 77 - 95 fl [facility] MCH 30.7 pg [facility] MCHC 36.5 gm/dl [facility] PLT 39 (L) 156 - 312 K/cmm [facility] RDW-CV 14.2 % [facility] Neutrophils 4.0 % [facility] Lymphocytes 92.0 % [facility] Monocytes 4.0 % [facility] ABS Neutrophils 0.03 (LL) K/cmm [facility] ABS Lymphs 0.70 K/cmm [facility] ABS Monocytes 0.03 K/cmm [facility] RBC Morphology 1+ Microcytes [facility] Type of Diff: Manual [facility] LAB Specimen Performing Organization Address City/[facility]/ZIP Code Phon e Number [facility] [address] [place] [address] SERVICES [facility] [address] [place] [address] PHOSPHORUS (09/30/2008 4:40 EST) Pathologist Sig nature Phosphorus 4.4 4.1 - 5.4 mg/dl [facility] LAB Specimen Performing Organization Address City/[facility]/ZIP Code Phon e Number [facility] [address] [place] [address] SERVICES [facility] [address] [place] [address] MAGNESIUM (09/30/2008 4:40 EST) Pathologist Sig nature Magnesium 2.4 1.7 - 2.8 mg/dl [facility] LAB Specimen Performing Organization Address [facility]/ZIP Code Phon e Number [facility] [address] [place] [address] SERVICES [facility] [address] [place] [address] CREATININE (09/30/2008 4:40 EST) Pathologist Sig nature Creatinine 0.40 0.1 - 0.7 mg/dl [facility] GFR, Calculated Age <18 ml/min/1.73m2 [facility] Specimen Performing Organization Address [facility] Phon e Number [facility] [address] [place] [address] SERVICES [facility] [address] [place] [address] BUN (09/30/2008 4:40 EST) Pathologist Sig nature BUN 12 7 - 18 mg/dl [facility] LAB Specimen Performing Organization Address [facility] Phon e Number [facility] [address] [place] [address] SERVICES [facility] [address] [place] [address] ELECTROLYTES (09/30/2008 4:40 EST) Pathologist Sig nature Sodium 142 136 - 145 mEq/L [facility] Potassium 4.0 3.6 - 5.2 mEq/L [facility] Chloride 101 96 - 110 mEq/L [facility] CO2 30 24 - 32 mEq/L [facility] Specimen Performing Organization Address [facility]/ZIP Code Phon e Number [facility] [address] [place] [address] SERVICES [facility] [address] [place] [address] GLUCOSE, GLUCOMETER (09/29/2008 14:12 EST) Glucose, 82 70 - 100 [facility] Fingerstick mg/dl LAB [employer] Counter Associate ID [id number] [facility] Test Performed by Nursing Services LAB Specimen Performing Organization Address [facility]/[place] [facility] [place] Phon e Number [facility] [address] [place] [address] SERVICES [facility] [address] [place] [address] PREALBUMIN (09/29/2008 5:05 EST) Pathologist Sig nature Prealbumin 16 mg/dl [facility] LAB Specimen Performing Organization Address City/[facility]/ZIP Code Phon e Number [facility] [address] [place] [address] SERVICES [facility] [address] [place] [address] (ABNORMAL) TRIGLYCERIDE (09/29/2008 5:05 EST) Pathologist Sig nature Triglycerides 183 (H) 32 - 116 mg/dl [facility] Specimen Performing Organization Address [facility] Phon e Number [facility] [address] [place] [address] SERVICES [facility] [address] [place] [address] (ABNORMAL) HEMAGRAM AND DIFFERENTIAL (09/29/2008 5:05 EST) WBC 0.64 (LL) 4.5 - 13.5 [facility] K/cmm RBC 3.35 (L) 4.00 - 6.20 [facility] M/cmm Hemoglobin Not Available 11.5 - 15.5 [facility] gm/dl HCT 27.9 (L) 35.0 - 45.0 % [facility] LAB MCV 83 77 - 95 fl [facility] MCH Not calculated pg [facility] MCHC Not calculated gm/dl [facility] LAB PLT 8 (LL) 156 - 312 K/cmm [facility] RDW-CV 13.3 % [facility] Neutrophils 4.0 % [facility] Lymphocytes 89.0 % [facility] Atyp Lymphs 5.0 % [facility] Monocytes 2.0 % [facility] ABS Neutrophils 0.03 (LL) K/cmm [facility] ABS Lymphs 0.57 K/cmm [facility] ABS Atyp Lymphs 0.03 K/cmm [facility] ABS Monocytes 0.01 K/cmm [facility] RBC Morphology 1+ Microcytes [facility] LAB Type of Diff: Manual [facility] LAB Specimen Performing Organization Address City/[facility]/ZIP Code Phon e Number [facility] [address] [place] [address] SERVICES [facility] [address] [place] [address] GLUCOSE, SERUM (09/29/2008 5:05 EST) Pathologist Sig nature Glucose, Serum 88 70 - 100 mg/dl [facility] LAB Specimen Performing Organization Address [facility] Phon e Number [facility] [address] [place] [address] SERVICES [facility] [address] [place] [address] (ABNORMAL) PHOSPHORUS (09/29/2008 5:05 EST) Pathologist Sig nature Phosphorus 3.7 (L) 4.1 - 5.4 mg/dl [facility] LAB Specimen Performing Organization Address [facility] Phon e Number [facility] [address] [place] [address] SERVICES [facility] [address] [place] [address] MAGNESIUM (09/29/2008 5:05 EST) Pathologist Sig nature Magnesium 2.5 1.7 - 2.8 mg/dl [facility] Specimen Performing Organization Address [facility] Code Phon e Number [facility] [address] [place] [address] SERVICES [facility] [address] [place] [address] CREATININE (09/29/2008 5:05 EST) Pathologist Sig nature Creatinine 0.40 0.1 - 0.7 mg/dl [facility] GFR, Calculated Age <18 ml/min/1.73m2 [facility] LAB Specimen Performing Organization Address City/[facility]/ZIP Code Phon e Number [facility] [address] [place] [address] SERVICES [facility] [address] [place] [address] BUN (09/29/2008 5:05 EST) Pathologist Sig nature BUN 13 7 - 18 mg/dl [facility] Specimen Performing Organization Address [facility]/ZIP Code Phon e Number [facility] [address] [place] [address] SERVICES [facility] [address] [place] [address] (ABNORMAL) CALCIUM (09/29/2008 5:05 EST) Pathologist Sig nature Calcium 8.6 (L) 8.8 - 11.1 mg/dl [facility] Calculated Calcium 9.3 8.8 - 11.1 mg/dl [facility] LAB Specimen Performing Organization Address City/State/ZIP Code Phon e Number [facility] [address] [place] [address] SERVICES [facility] [address] [place] [address] ELECTROLYTES (09/29/2008 5:05 EST) Pathologist Sig nature Sodium 141 136 - 145 mEq/L [facility] Potassium 4.0 3.6 - 5.2 mEq/L [facility] Chloride 102 96 - 110 mEq/L [facility] CO2 30 24 - 32 mEq/L [facility] Specimen Performing Organization Address City/[facility] Code Phon e Number [facility] [address] [place] [address] SERVICES [facility] [address] [place] [address] (ABNORMAL) HEMAGRAM AND DIFFERENTIAL (09/28/2008 5:05 EST) WBC 0.50 (LL) 4.5 - 13.5 [facility] K/cmm RBC 3.50 (L) 4.00 - 6.20 [facility] M/cmm Hemoglobin 10.8 (L) 11.5 - 15.5 [facility] gm/dl HCT 30.0 (L) 35.0 - 45.0 % [facility] MCV Not Available 77 - 95 fl [facility] MCH 30.9 pg [facility] MCHC 36.0 gm/dl [facility] PLT 14 (LL) 156 - 312 [facility] K/cmm RDW-CV 13.7 % [facility] Neutrophils 4.0 % [facility] Lymphocytes 89.0 % [facility] Monocytes 6.0 % [facility] Myelocytes 1.0 % [facility] ABS Neutrophils 0.02 (LL) K/cmm [facility] ABS Lymphs 0.44 K/cmm [facility] ABS Monocytes 0.03 K/cmm [facility] ABS Myelocytes 0.01 K/cmm [facility] RBC Morphology 1+ Anisocytosis [facility] 1+ Poikilocytosis Type of Diff: Manual [facility] Specimen Performing Organization Address [facility] Phon e Number [facility] [address] [place] [address] SERVICES [facility] [address] [place] [address] (ABNORMAL) TRIGLYCERIDE (09/28/2008 5:05 EST) Pathologist Sig nature Triglycerides 240 (H) 32 - 116 mg/dl [facility] Specimen Performing Organization Address [facility]/ZIP Code Phon e Number [facility] [address] [place] [address] SERVICES [facility] [address] [place] [address] GLUCOSE, SERUM (09/28/2008 5:05 EST) Pathologist Sig nature Glucose, Serum 91 70 - 100 mg/dl [facility] Specimen Performing Organization Address [facility] Phon e Number [facility] [address] [place] [address] SERVICES [facility] [address] [place] [address] (ABNORMAL) PHOSPHORUS (09/28/2008 5:05 EST) Pathologist Sig nature Phosphorus 3.6 (L) 4.1 - 5.4 mg/dl [facility] Specimen Performing Organization Address [facility] Phon e Number [facility] [address] [place] [address] SERVICES [facility] [address] [place] [address] MAGNESIUM (09/28/2008 5:05 EST) Pathologist Sig nature Magnesium 2.4 1.7 - 2.8 mg/dl [facility] Specimen Performing Organization Address [facility]/ZIP Code Phon e Number [facility] [address] [place] [address] SERVICES [facility] [address] [place] [address] CREATININE (09/28/2008 5:05 EST) Pathologist Sig nature Creatinine 0.40 0.1 - 0.7 mg/dl [facility] GFR, Calculated Age <18 ml/min/1.73m2 [facility] Specimen Performing Organization Address [facility]/ZIP Code Phon e Number [facility] [address] [place] [address] SERVICES [facility] [address] [place] [address] BUN (09/28/2008 5:05 EST) Pathologist Sig nature BUN 11 7 - 18 mg/dl [facility] Specimen Performing Organization Address [facility] Phon e Number [facility] [address] [place] [address] SERVICES [facility] [address] [place] [id number] ELECTROLYTES (09/28/2008 5:05 EST) Pathologist Sig nature Sodium 139 136 - 145 mEq/L [facility] Potassium 4.0 3.6 - 5.2 mEq/L [facility] Chloride 99 96 - 110 mEq/L [facility] CO2 30 24 - 32 mEq/L [facility] Specimen Performing Organization Address [facility] Phon e Number [facility] [address] [place] [address] SERVICES [facility] [address] [place] [address] CMV QUANT BY PCR (09/28/2008 5:05 EST) CMV DNA Quant None Detected [facility] Reference range: None Detected Lower limit of detection is 500 copies/mL. ? Analyte Specific Reagent ? This test was developed and its performance characteristics ? determined by [facility], [facility]. This test has not be en cleared or ? approved by the U.S. Food an d Drug Administration. ? Performed or Referred by: Linda Aguiar Dpt of [facility] Path, [address] [place] [address], Lab Dir: Ricci Ng III, ? MD ? Specimen Performing Organization Address City/State/ZIP Code Phon e Number [facility] [address] [place] [address] SERVICES [facility] [address] [place] [address] CT CHEST WO CONTRAST (09/27/2008 10:06 EST) Anatomical Region Laterality Modality Other Specimen Narrative [facility] - 03/27/2009 8: 39 EDT 8 y/o w/ aml s/p chemo on iv abx still febrile CT CHEST WO/CONTRAST History: ?? 8 y/o w/ aml s/p chemo on iv abx ??still febrile Technique: A high resolution CT of the chest was pe rformed with the patient in the supine position. ??Axial scans of 0. 75-1.5 mm collimation were obtained at 10-12 mm intervals from the apices through the bases following full inspiration. ??The scans were reconstructed using a high spatial frequency algorithm and rev iewed on a workstation for interpretation. ??No oral or intravenous contrast was administered. Three expiratory HRCT scans were obtaine d at the level of the top of the aortic arch, tracheal heladio, and ju st above the right hemidiaphragm. Comparisons: July,. Findings: The exam again shows a tunnele d catheter that enters the right internal jugular vein, its tip at the junction of the superior vena cava with the right atrium. The babs st wall shows no abnormalities. The heart and pericardium are normal. There are no enlarged mediastinal or hilar lymph node s seen. No pleural abnormality is noted. The airways and lungs demonstrate no abn ormalities. Scans of the upper abdomen are limited b ut are unremarkable. Impression: 1. Normal unenhanced CT of the chest. 2. Tunneled right internal jugular debra ter with tip at junction of superior vena cava with right atrium. Procedure Note Alfred Perez MD - 03/27/2009 8 y/o w/ aml s/p chemo on iv abx still febrile CT CHEST WO/CONTRAST History: 8 y/o w/ aml s/p chemo on iv ab x still febrile Technique: A high resolution CT of the chest was pe rformed with the patient in the supine position. Axial scans of 0.75 -1.5 mm collimation were obtained at 10-12 mm intervals from the apices through the bases following full inspiration. The scans we re reconstructed using a high spatial frequency algorithm and rev iewed on a workstation for interpretation. No oral or intravenous c ontrast was administered. Three expiratory HRCT scans were obtaine d at the level of the top of the aortic arch, tracheal heladio, and ju st above the right hemidiaphragm. Comparisons: July,. Findings: The exam again shows a tunnele d catheter that enters the right internal jugular vein, its tip at the junction of the superior vena cava with the right atrium. The babs st wall shows no abnormalities. The heart and pericardium are normal. There are no enlarged mediastinal or hilar lymph node s seen. No pleural abnormality is noted. The airways and lungs demonstrate no abn ormalities. Scans of the upper abdomen are limited b ut are unremarkable. Impression: 1. Normal unenhanced CT of the chest. 2. Tunneled right internal jugular debra ter with tip at junction of superior vena cava with right atrium. Performing Organization Address City/State/ZIP Code Phon e Number [facility] [address] [facility] [address] [facility] [address] [place], [place] [address] CMV ANTIGENEMIA ASSAY (09/27/2008 8:15 EST) Specimen Blood [facility] Description LAB Result The CMV antigenemia test dep ends on the presence of neutrophils. Thereare insufficient [facility] neutrophils in this specimen for an adequate evaluation. Ifclinically indicated, consider LAB quantitative PCR for CMV (ED TA (lavender top)tube, 3.0 ml blood requested, 1.0 ml blood minimum). Cancelled by Physician/Nursing Unit Credit Issued Report Status Final [facility] 09/27/2008 LAB Specimen Performing Organization Address City/[facility]/ZIP Code Phon e Number [facility] [address] [place] [address] SERVICES [facility] [address] [place] [address] (ABNORMAL) TRIGLYCERIDE (09/27/2008 8:15 EST) Pathologist Sig nature Triglycerides 144 (H) 32 - 116 mg/dl [facility] Specimen Performing Organization Address [facility]/[place] [facility] [place] e [facility] [address] [place] [address] [facility] [address] [place] [address] GLUCOSE, SERUM (09/27/2008 8:15 EST) Pathologist Sig nature Glucose, Serum 81 70 - 100 mg/dl [facility] LAB Specimen Performing Organization Address [facility] Phon e Number [facility] [address] [place] [address] SERVICES [facility] [address] [place] [address] (ABNORMAL) HEMAGRAM AND DIFFERENTIAL (09/27/2008 6:05 EST) WBC 0.36 (LL) 4.5 - 13.5 [facility] K/cmm RBC 3.58 (L) 4.00 - 6.20 [facility] M/cmm Hemoglobin 11.4 (L) 11.5 - 15.5 [facility] gm/dl HCT 31.5 (L) 35.0 - 45.0 % [facility] MCV Not Available 77 - 95 fl [facility] MCH 31.8 pg [facility] MCHC 36.0 gm/dl [facility] PLT 24 (L) 156 - 312 [facility] K/cmm RDW-CV 14.2 % [facility] Neutrophils 2.0 % [facility] Lymphocytes 98.0 % [facility] ABS Neutrophils 0.01 (LL) K/cmm [facility] ABS Lymphs 0.35 K/cmm [facility] Cells Counted 50 [facility] RBC Morphology 1+ Anisocytosis [facility] 1+ Poikilocytosis 1+ Teardrop cells Type of Diff: Manual [facility] Specimen Performing Organization Address [facility] Phon e Number [facility] [address] [place] [address] [facility] [address] [place] [address] (ABNORMAL) TRIGLYCERIDE (09/27/2008 6:05 EST) Pathologist Sig nature Triglycerides 438 (H) 32 - 116 mg/dl [facility] Specimen Performing Organization Address [facility] Phon e Number [facility] [address] [place] [address] SERVICES [facility] [address] [place] [address] (ABNORMAL) GLUCOSE, SERUM (09/27/2008 6:05 EST) Pathologist Sig nature Glucose, Serum 351 (H) 70 - 100 mg/dl [facility] Specimen Performing Organization Address [facility] Phon e Number [facility] [address] [place] [address] SERVICES [facility] [address] [place] [address] PHOSPHORUS (09/27/2008 6:05 EST) Pathologist Sig nature Phosphorus 4.3 4.1 - 5.4 mg/dl [facility] Specimen Performing Organization Address [facility] Phon e Number [facility] [address] [place] [address] SERVICES [facility] [address] [place] [address] MAGNESIUM (09/27/2008 6:05 EST) Pathologist Sig nature Magnesium 2.6 1.7 - 2.8 mg/dl [facility] Specimen Performing Organization Address [facility] Phon e Number [facility] [address] [place] [address] [facility] [address] [place] [address] CREATININE (09/27/2008 6:05 EST) Pathologist Sig nature Creatinine 0.50 0.1 - 0.7 mg/dl [facility] GFR, Calculated Age <18 ml/min/1.73m2 [facility] Specimen Performing Organization Address [facility] Phon e Number [facility] [address] [place] [address] SERVICES [facility] [address] [place] [address] BUN (09/27/2008 6:05 EST) Pathologist Sig nature BUN 12 7 - 18 mg/dl [facility] Specimen Performing Organization Address City/State/ZIP Code Phon e Number [facility] [address] [place] [address] [facility] [address] [place] [address] TOTAL & DIRECT BILIRUBIN (09/27/2008 6:05 EST) Pathologist Sig nature Conjugated Bilirubin 0.0 0.0 - 0.3 mg/dl [facility] B Unconjugated Bilirubin 0.6 0.1 - 1.1 mg/dl [facility] Bilirubin, Total <0.5 0.0 - 1.4 mg/dl [facility] Specimen Performing Organization Address [facility]/ZIP Code Phon e Number [facility] [address] [place] [address] SERVICES [facility] [address] [place] [address] AST (09/27/2008 6:05 EST) Pathologist Sig nature AST 26 23 - 58 U/L [facility] Specimen Performing Organization Address City/[facility]/ZIP Code Phon e Number [facility] [address] [place] [address] SERVICES [facility] [address] [place] [address] ALT (09/27/2008 6:05 EST) Pathologist Sig nature ALT 16 10 - 25 U/L [facility] Specimen Performing Organization Address City/State/ZIP Code Phon e Number [facility] [address] [place] [address] SERVICES [facility] [address] [place] [address] (ABNORMAL) ALKALINE PHOSPHATASE (09/27/2008 6:05 EST) Pathologist Sig nature Alkaline Phosphatase 90 (L) 150 - 350 U/L [facility] Specimen Performing Organization Address City/[facility]/ZIP Code Phon e Number [facility] [address] [place] [address] [facility] [address] [place] [address] (ABNORMAL) ELECTROLYTES (09/27/2008 6:05 EST) Pathologist Sig nature Sodium 135 (L) 136 - 145 mEq/L [facility] Potassium 4.9 3.6 - 5.2 mEq/L [facility] Chloride 97 96 - 110 mEq/L [facility] CO2 26 24 - 32 mEq/L [facility] Specimen Performing Organization Address [facility] Phon e Number [facility] [address] [place] [address] [facility] [address] [place] [address] PTT (09/27/2008 6:05 EST) Pathologist Sig nature PTT 31Comment: 20 - 35 secs [facility] Therapeutic Heparin range: 60-100 seconds Specimen Performing Organization Address [facility] Phon e Number [facility] [address] [place] [address] [facility] [address] [place] [address] PROTIME (09/27/2008 6:05 EST) Pro Time 13.4 12.0 - 15.0 [facility] secs I.N.R. 1.0 0.9 - 1.1 [facility] Comment: Ratio Moderate Intensity Coumadin INR = 2.0-3.0 Adjustments in anticoagulant therapy dose should be based upon the INR and NOT the Pro Time. Specimen Performing Organization Address [facility] Phon e Number [facility] [address] [place] [address] [facility] [address] [place] [address] BACTERIAL CULTURE, BLOOD (09/26/2008 22:10 EST) Specimen Description Blood [facility] WHITE PORT Pediatric bottle received Result No growth [facility] Report Status Final [facility] [id number] Specimen Performing Organization Address [facility] Phon e Number [facility] [address] [place] [address] SERVICES [facility] [address] [place] [address] BACTERIAL CULTURE, BLOOD (09/26/2008 22:10 EST) Specimen Description Blood [facility] Pediatric bottle received RED PORT Result No growth [facility] Report Status Final [facility] [id number] Specimen Performing Organization Address City/[facility]/ZIP Code Phon e Number [facility] [address] [place] [address] SERVICES [facility] [address] [place] [address] FUNGUS CULTURE, BLOOD (09/26/2008 22:10 EST) Specimen Description Blood [facility] Pediatric bottle received Isolator tube received [place]ITE [place] Result No fungi isolated [facility] Report Status Final [facility] 10/25/2008 Specimen Performing Organization Address City/[facility]/ZIP Code Phon e Number [facility] [address] [place] [address] SERVICES [facility] [address] [place] [address] FUNGUS CULTURE, BLOOD (09/26/2008 22:10 EST) Specimen Description Blood [facility] LAB Pediatric bottle received Isolator tube received [place] Result No fungi isolated [facility] LAB Report Status Final [facility] 10/25/2008 Specimen Performing Organization Address City/[facility]/ZIP Code Phon e Number [facility] [address] [place] [address] SERVICES [facility] [address] [place] [address] IGG (09/26/2008 13:05 EST) Pathologist Sig nature IgG 865 608 - 1229 mg/dl [facility] LAB Specimen Performing Organization Address City/[facility]/ZIP Code Phon e Number [facility] [address] [place] [address] SERVICES [facility] [address] [place] [address] GLUCOSE, GLUCOMETER (09/26/2008 13:04 EST) Glucose, 98 70 - 100 [facility] Fingerstick mg/dl LAB [employer] Counter Associate [place] [id number] [facility] Test Performed by Nursing Services LAB Specimen Performing Organization Address City/[facility]/ZIP Code Phon e Number [facility] [address] [place] [address] SERVICES [facility] [address] [place] [address] HSV (ONLY) CULTURE (09/26/2008 11:45 EST) Specimen Description Lip [facility] Result HERPES SIMPLEX [facility] VIRUS TYPE I RECOVERED Report Status Final [facility] 09/29/2008 Specimen Performing Organization Address City/[facility]/ZIP Code Phon e Number [facility] [address] [place] [address] SERVICES [facility] [address] [place] [address] HSV (ONLY) CULTURE (09/26/2008 11:45 EST) Specimen Description Lip [facility] Result HERPES SIMPLEX [facility] VIRUS TYPE I RECOVERED Report Status Final [facility] 09/29/2008 Specimen Performing Organization Address City/State/ZIP Code Phon e Number [facility] [address] [place] [address] SERVICES [facility] [address] [place] [address] PREALBUMIN (09/26/2008 3:50 EST) Pathologist Sig nature Prealbumin 19 mg/dl [facility] Specimen Performing Organization Address City/[facility]/ZIP Code Phon e Number [facility] [address] [place] [address] SERVICES [facility] [address] [place] [address] (ABNORMAL) HEMAGRAM AND DIFFERENTIAL (09/26/2008 3:50 EST) WBC 0.55 (LL) 4.5 - 13.5 [facility] K/cmm RBC 2.81 (L) 4.00 - 6.20 [facility] M/cmm Hemoglobin 8.6 (L) 11.5 - 15.5 [facility] gm/dl HCT 24.0 (L) 35.0 - 45.0 % [facility] MCV Not calculated 77 - 95 fl [facility] MCH 30.5 pg [facility] MCHC 35.8 gm/dl [facility] PLT 51 (L) 156 - 312 [facility] K/cmm RDW-CV 13.7 % [facility] Neutrophils 0.0 % [facility] Lymphocytes 100.0 % [facility] ABS Neutrophils 0.00 (LL) K/cmm [facility] ABS Lymphs 0.55 K/cmm [facility] Cells Counted 50 [facility] RBC Morphology 1+ Anisocytosis [facility] 1+ Microcytes 1+ Teardrop cells 1+ Ovalocytes Type of Diff: Manual [facility] Specimen Performing Organization Address [facility]/ZIP Code Phon e Number [facility] [address] [place] [address] SERVICES [facility] [address] [place] [address] (ABNORMAL) TRIGLYCERIDE (09/26/2008 3:50 EST) Pathologist Sig nature Triglycerides 122 (H) 32 - 116 mg/dl [facility] Specimen Performing Organization Address [facility] Phon e Number [facility] [address] [place] [address] SERVICES [facility] [address] [place] [address] (ABNORMAL) PHOSPHORUS (09/26/2008 3:50 EST) Pathologist Sig nature Phosphorus 3.5 (L) 4.1 - 5.4 mg/dl [facility] Specimen Performing Organization Address [facility] Phon e Number [facility] [address] [place] [address] SERVICES [facility] [address] [place] [address] MAGNESIUM (09/26/2008 3:50 EST) Pathologist Sig nature Magnesium 2.6 1.7 - 2.8 mg/dl [facility] Specimen Performing Organization Address [facility] Phon e Number [facility] [address] [place] [address] SERVICES [facility] [address] [place] [address] CREATININE (09/26/2008 3:50 EST) Pathologist Sig nature Creatinine 0.50 0.1 - 0.7 mg/dl [facility] GFR, Calculated Age <18 ml/min/1.73m2 [facility] Specimen Performing Organization Address [facility]/[place] [facility] Phon e Number [facility] [address] [place] [address] SERVICES [facility] [address] [place] [address] BUN (09/26/2008 3:50 EST) Pathologist Sig nature BUN 12 7 - 18 mg/dl [facility] Specimen Performing Organization Address [facility]/[place] [facility] [place] Phon e Number [facility] [address] [place] [address] SERVICES [facility] [address] [place] [address] TOTAL & DIRECT BILIRUBIN (09/26/2008 3:50 EST) Pathologist Sig nature Conjugated Bilirubin 0.0 0.0 - 0.3 mg/dl [facility] B Unconjugated Bilirubin 0.5 0.1 - 1.1 mg/dl [facility] Bilirubin, Total <0.5 0.0 - 1.4 mg/dl [facility] Specimen Performing Organization Address City/[facility]/ZIP Code Phon e Number [facility] [address] [place] [address] SERVICES [facility] [address] [place] [address] AST (09/26/2008 3:50 EST) Pathologist Sig nature AST 23 23 - 58 U/L [facility] Specimen Performing Organization Address [facility]/ZIP Code Phon e Number [facility] [address] [place] [address] SERVICES [facility] [address] [place] [address] ALT (09/26/2008 3:50 EST) Pathologist Sig nature ALT 14 10 - 25 U/L [facility] Specimen Performing Organization Address City/[facility]/ZIP Code Phon e Number [facility] [address] [place] [address] SERVICES [facility] [address] [place] [address] (ABNORMAL) ALKALINE PHOSPHATASE (09/26/2008 3:50 EST) Pathologist Sig nature Alkaline Phosphatase 92 (L) 150 - 350 U/L [facility] Specimen Performing Organization Address City/[facility]/ZIP Code Phon e Number [facility] [address] [place] [address] SERVICES [facility] [address] [place] [address] CALCIUM (09/26/2008 3:50 EST) Pathologist Sig nature Calcium 9.0 8.8 - 11.1 mg/dl [facility] Calculated Calcium 9.4 8.8 - 11.1 mg/dl [facility] Specimen Performing Organization Address City/[facility]/ZIP Code Phon e Number [facility] [address] [place] [address] SERVICES [facility] [address] [place] [id number] ELECTROLYTES (09/26/2008 3:50 EST) Pathologist Sig nature Sodium 139 136 - 145 mEq/L [facility] Potassium 4.3 3.6 - 5.2 mEq/L [facility] Chloride 100 96 - 110 mEq/L [facility] CO2 28 24 - 32 mEq/L [facility] Specimen Performing Organization Address [facility] Phon e Number [facility] [address] [place] [address] SERVICES [facility] [address] [place] [address] PTT (09/26/2008 3:50 EST) Pathologist Sig nature PTT 35Comment: 20 - 35 secs [facility] Therapeutic Heparin range: 60-100 seconds Specimen Performing Organization Address [facility] Phon e Number [facility] [address] [place] [address] SERVICES [facility] [address] [place] [address] PROTIME (09/26/2008 3:50 EST) Pro Time 13.1 12.0 - 15.0 [facility] secs I.N.R. 1.0 0.9 - 1.1 [facility] Comment: Ratio Moderate Intensity Coumadin INR = 2.0-3.0 Adjustments in anticoagulant therapy dose should be based upon the INR and NOT the Pro Time. Specimen Performing Organization Address [facility] Phon e Number [facility] [address] [place] [address] SERVICES [facility] [address] [place] [address] (ABNORMAL) URINALYSIS, CHEMICAL (09/25/2008 8:30 EST) Pathologist Sig nature Color, UA Yellow [facility] Clarity, UA Cloudy [facility] Glucose, UA Norm NORM [facility] Bilirubin, UA Neg NEG [facility] Ketones, UA Neg NEG [facility] Specific [place], Urine 1.015 1.005 - 1.02 [facility] B Blood, UA Mod (A) NEG [facility] pH, UA 8.0 5.0 - 9.0 [facility] Protein, UA 1+ (A) NEG [facility] Urobilinogen, UA Norm NORM mg/dL [facility] Nitrite, UA Neg NEG [facility] Leuk Esterase Neg NEG [facility] Specimen Performing Organization Address City/[facility]/ZIP Code Phon e Number [facility] [address] [place] [address] SERVICES [facility] [address] [place] [address] URINE MICROSCOPIC (09/25/2008 8:30 EST) WBC, UA None seen 0 - 5 /HPF [facility] RBC, UA 5 to 10 0 - 5 /HPF [facility] Squam Epithel, UA None seen NS /HPF [facility] Renal Epithel, UA None seen NS /HPF [facility] Bacteria, UA None seen NS /HPF [facility] Crystals, UA None seen /HPF [facility] Hyaline Casts, UA None seen /LPF [facility] Comment Microscopic results [facility] are unreliable on LAB urines unrefrig >2hrs or refrig >8hrs. Comment Amorphous material [facility] present LAB Specimen Performing Organization Address City/[facility] Code Phon e Number [facility] [address] [place] [address] SERVICES [facility] [address] [place] [address] (ABNORMAL) HEMAGRAM AND DIFFERENTIAL (09/25/2008 4:00 EST) WBC 0.44 (LL) 4.5 - 13.5 [facility] K/cmm RBC 3.21 (L) 4.00 - 6.20 [facility] M/cmm Hemoglobin Not Available 11.5 - 15.5 [facility] gm/dl HCT 26.3 (L) 35.0 - 45.0 % [facility] MCV 82 77 - 95 fl [facility] MCH Not calculated pg [facility] MCHC Not calculated gm/dl [facility] PLT 87 (L) 156 - 312 [facility] K/cmm RDW-CV 13.5 % [facility] Neutrophils 0.0 % [facility] Lymphocytes 98.0 % [facility] Atyp Lymphs 2.0 % [facility] ABS Neutrophils 0.00 (LL) K/cmm [facility] ABS Lymphs 0.43 K/cmm [facility] ABS Atyp Lymphs 0.01 K/cmm [facility] Cells Counted 50 [facility] RBC Morphology 1+ Anisocytosis [facility] 1+ Microcytes 1+ Poikilocytosis 1+ Teardrop cells Type of Diff: Manual [facility] Specimen Performing Organization Address [facility] Phon e Number [facility] [address] [place] [address] SERVICES [facility] [address] [place] [address] GLUCOSE, SERUM (09/25/2008 4:00 EST) Pathologist Sig nature Glucose, Serum 94 70 - 100 mg/dl [facility] Specimen Performing Organization Address [facility] Phon e Number [facility] [address] [place] [address] SERVICES [facility] [address] [place] [address] (ABNORMAL) URINALYSIS, CHEMICAL (09/24/2008 17:30 EST) Color, UA Yellow [facility] Clarity, UA Hazy [facility] Glucose, UA Norm NORM [facility] Bilirubin, UA Neg NEG [facility] Ketones, UA Neg NEG [facility] Specific [place], 1.010 1.005 - 1.02 [facility] Urine Blood, UA Large (A) NEG [facility] pH, UA 7.5 5.0 - 9.0 [facility] Protein, UA Trace (A) NEG [facility] Urobilinogen, UA Norm NORM mg/dL [facility] Nitrite, UA Neg NEG [facility] Leuk Esterase Neg NEG [facility] Comment Small sample, [facility] less than 12 ml received. Specimen Performing Organization Address [facility] Phon e Number [facility] [address] [place] [address] SERVICES [facility] [address] [place] [id number] (ABNORMAL) URINE MICROSCOPIC (09/24/2008 17:30 EST) WBC, UA 1 to 5 0 - 5 /HPF [facility] RBC, UA >50 0 - 5 /HPF [facility] Squam Epithel, UA None seen NS /HPF [facility] Renal Epithel, UA None seen NS /HPF [facility] Bacteria, UA Rare (A) NS /HPF [facility] Crystals, UA None seen /HPF [facility] Hyaline Casts, UA None seen /LPF [facility] Comment Microscopic results [facility] are unreliable on LAB urines unrefrig >2hrs or refrig >8hrs. Specimen Performing Organization Address [facility]/[place] [facility] Phon e Number [facility] [address] [place] [address] SERVICES [facility] [address] [place] [phone] (ABNORMAL) PTT (09/24/2008 3:40 EST) Pathologist Sig nature PTT 36 (H)Comment: 20 - 35 secs [facility] Therapeutic Heparin range: 60-100 seconds Specimen Performing Organization Address [facility] Phon e Number [facility] [address] [place] [address] [facility] [address] [place] [address] PROTIME (09/24/2008 3:40 EST) Pro Time 13.7 12.0 - 15.0 [facility] secs I.N.R. 1.0 0.9 - 1.1 [facility] Comment: Ratio Moderate Intensity Coumadin INR = 2.0-3.0 Adjustments in anticoagulant therapy dose should be based upon the INR and NOT the Pro Time. Specimen Performing Organization Address [facility] Phon e Number [facility] [address] [place] [address] SERVICES [facility] [address] [place] [id number] (ABNORMAL) HEMAGRAM AND DIFFERENTIAL (09/24/2008 3:40 EST) WBC 0.53 (LL) 4.5 - 13.5 [facility] K/cmm RBC 3.12 (L) 4.00 - 6.20 [facility] M/cmm Hemoglobin Not Available 11.5 - 15.5 [facility] gm/dl HCT 25.5 (L) 35.0 - 45.0 % [facility] MCV 82 77 - 95 fl [facility] MCH Not calculated pg [facility] MCHC Not calculated gm/dl [facility] PLT 32 (L) 156 - 312 [facility] K/cmm RDW-CV 14.1 % [facility] Neutrophils 0.0 % [facility] Lymphocytes 100.0 % [facility] ABS Neutrophils 0.00 (LL) K/cmm [facility] ABS Lymphs 0.53 K/cmm [facility] Cells Counted 50 [facility] RBC Morphology 1+ Anisocytosis [facility] 1+ Microcytes 1+ Poikilocytosis Type of Diff: Manual [facility] Specimen Performing Organization Address [facility]/ZIP Code Phon e Number [facility] [address] [place] [address] SERVICES [facility] [address] [place] [address] (ABNORMAL) TRIGLYCERIDE (09/24/2008 3:40 EST) Pathologist Sig nature Triglycerides 167 (H) 32 - 116 mg/dl [facility] Specimen Performing Organization Address [facility]/ZIP Code Phon e Number [facility] [address] [place] [address] SERVICES [facility] [address] [place] [address] GLUCOSE, SERUM (09/24/2008 3:40 EST) Pathologist Sig nature Glucose, Serum 93 70 - 100 mg/dl [facility] Specimen Performing Organization Address [facility]/ZIP Code Phon e Number [facility] [address] [place] [address] SERVICES [facility] [address] [place] [address] (ABNORMAL) PHOSPHORUS (09/24/2008 3:40 EST) Pathologist Sig nature Phosphorus 3.0 (L) 4.1 - 5.4 mg/dl [facility] Specimen Performing Organization Address [facility]/ZIP Code Phon e Number [facility] [address] [place] [address] SERVICES [facility] [address] [place] [address] MAGNESIUM (09/24/2008 3:40 EST) Pathologist Sig nature Magnesium 2.6 1.7 - 2.8 mg/dl [facility] Specimen Performing Organization Address [facility] Phon e Number [facility] [address] [place] [address] SERVICES [facility] [address] [place] [address] CREATININE (09/24/2008 3:40 EST) Pathologist Sig nature Creatinine 0.38 0.1 - 0.7 mg/dl [facility] GFR, Calculated Age <18 ml/min/1.73m2 [facility] Specimen Performing Organization Address [facility] Phon e Number [facility] [address] [place] [address] SERVICES [facility] [address] [place] [address] BUN (09/24/2008 3:40 EST) Pathologist Sig nature BUN 10 7 - 18 mg/dl [facility] Specimen Performing Organization Address [facility] Phon e Number [facility] [address] [place] [address] SERVICES [facility] [address] [place] [address] TOTAL & DIRECT BILIRUBIN (09/24/2008 3:40 EST) Pathologist Sig nature Conjugated Bilirubin 0.0 0.0 - 0.3 mg/dl [facility] Unconjugated Bilirubin 0.6 0.1 - 1.1 mg/dl [facility] Bilirubin, Total <0.5 0.0 - 1.4 mg/dl [facility] Specimen Performing Organization Address [facility] Phon e Number [facility] [address] [place] [address] SERVICES [facility] [address] [place] [address] (ABNORMAL) AST (09/24/2008 3:40 EST) Pathologist Sig nature AST 21 (L) 23 - 58 U/L [facility] Specimen Performing Organization Address [facility] Phon e Number [facility] [address] [place] [address] SERVICES [facility] [address] [place] [address] ALT (09/24/2008 3:40 EST) Pathologist Sig nature ALT 25 10 - 25 U/L [facility] Specimen Performing Organization Address [facility]/State/ZIP Code Phon e Number [facility] [address] [place] [address] SERVICES [facility] [address] [place] [address] (ABNORMAL) ALKALINE PHOSPHATASE (09/24/2008 3:40 EST) Pathologist Sig nature Alkaline Phosphatase 98 (L) 150 - 350 U/L [facility] Specimen Performing Organization Address [facility]/ZIP Code Phon e Number [facility] [address] [place] [address] SERVICES [facility] [address] [place] [address] (ABNORMAL) CALCIUM (09/24/2008 3:40 EST) Pathologist Sig nature Calcium 8.5 (L) 8.8 - 11.1 mg/dl [facility] Calculated Calcium 9.3 8.8 - 11.1 mg/dl [facility] Specimen Performing Organization Address [facility] Phon e Number [facility] [address] [place] [address] SERVICES [facility] [address] [place] [address] (ABNORMAL) ELECTROLYTES (09/24/2008 3:40 EST) Pathologist Sig nature Sodium 137 136 - 145 mEq/L [facility] Potassium 3.5 (L) 3.6 - 5.2 mEq/L [facility] Chloride 101 96 - 110 mEq/L [facility] CO2 29 24 - 32 mEq/L [facility] Specimen Performing Organization Address [facility] Phon e Number [facility] [address] [place] [address] SERVICES [facility] [address] [place] [address] BACTERIAL CULTURE, BLOOD (09/23/2008 4:45 EST) Specimen Description Blood [facility] White Pediatric bottle received Result No growth [facility] Report Status Final [facility] [id number] Specimen Performing Organization Address [facility] Phon e Number [facility] [address] [place] [address] SERVICES [facility] [address] [place] [address] BACTERIAL CULTURE, BLOOD (09/23/2008 4:45 EST) Specimen Description Blood [facility] Red Pediatric bottle received Result No growth [facility] Report Status Final [facility] [id number] Specimen Performing Organization Address City/[facility]/ZIP Code Phon e Number [facility] [address] [place] [address] SERVICES [facility] [address] [place] [address] FUNGUS CULTURE, BLOOD (09/23/2008 4:45 EST) Specimen Description Blood [facility] White Isolator tube received Result No fungi isolated [facility] Report Status Final [facility] 10/25/2008 Specimen Performing Organization Address City/[facility]/ZIP Code Phon e Number [facility] [address] [place] [address] SERVICES [facility] [address] [place] [address] FUNGUS CULTURE, BLOOD (09/23/2008 4:45 EST) Specimen Description Blood [facility] Red Pediatric bottle received Result No fungi isolated [facility] Report Status Final [facility] 10/25/2008 Specimen Performing Organization Address [facility] Phon e Number [facility] [address] [place] [address] SERVICES [facility] [address] [place] [address] (ABNORMAL) HEMAGRAM AND DIFFERENTIAL (09/23/2008 4:05 EST) WBC 0.55 (LL) 4.5 - 13.5 [facility] K/cmm RBC 3.58 (L) 4.00 - 6.20 [facility] M/cmm Hemoglobin Not Available 11.5 - 15.5 [facility] gm/dl HCT 29.5 (L) 35.0 - 45.0 % [facility] MCV 82 77 - 95 fl [facility] MCH Not calculated pg [facility] MCHC Not calculated gm/dl [facility] PLT 48 (L) 156 - 312 K/cmm [facility] RDW-CV 13.3 % [facility] Neutrophils 0.0 % [facility] Lymphocytes 100.0 % [facility] ABS Neutrophils 0.00 (LL) K/cmm [facility] ABS Lymphs 0.55 K/cmm [facility] RBC Morphology 1+ Anisocytosis [facility] 1+ Microcytes Type of Diff: Manual [facility] Specimen Performing Organization Address [facility]/ZIP Code Phon e Number [facility] [address] [place] [address] SERVICES [facility] [address] [place] [address] (ABNORMAL) TRIGLYCERIDE (09/23/2008 4:05 EST) Pathologist Sig nature Triglycerides 218 (H) 32 - 116 mg/dl [facility] Specimen Performing Organization Address [facility] Phon e Number [facility] [address] [place] [address] SERVICES [facility] [address] [place] [address] (ABNORMAL) PHOSPHORUS (09/23/2008 4:05 EST) Pathologist Sig nature Phosphorus 1.7 (L) 4.1 - 5.4 mg/dl [facility] Specimen Performing Organization Address [facility] Phon e Number [facility] [address] [place] [address] SERVICES [facility] [address] [place] [address] MAGNESIUM (09/23/2008 4:05 EST) Pathologist Sig nature Magnesium 2.3 1.7 - 2.8 mg/dl [facility] Specimen Performing Organization Address [facility] Phon e Number [facility] [address] [place] [address] SERVICES [facility] [address] [place] [address] CREATININE (09/23/2008 4:05 EST) Pathologist Sig nature Creatinine 0.50 0.1 - 0.7 mg/dl [facility] GFR, Calculated Age <18 ml/min/1.73m2 [facility] Specimen Performing Organization Address [facility]/[place] [facility] Phon e Number [facility] [address] [place] [address] SERVICES [facility] [address] [place] [address] BUN (09/23/2008 4:05 EST) Pathologist Sig nature BUN 9 7 - 18 mg/dl [facility] Specimen Performing Organization Address [facility]/[place] [facility] Phon e Number [facility] [address] [place] [address] SERVICES [facility] [address] [place] [address] TOTAL & DIRECT BILIRUBIN (09/23/2008 4:05 EST) Pathologist Sig nature Conjugated Bilirubin 0.0 0.0 - 0.3 mg/dl [facility] Unconjugated Bilirubin 0.7 0.1 - 1.1 mg/dl [facility] Bilirubin, Total 0.6 0.0 - 1.4 mg/dl [facility] Specimen Performing Organization Address City/[facility]/ZIP Code Phon e Number [facility] [address] [place] [address] SERVICES [facility] [address] [place] [address] AST (09/23/2008 4:05 EST) Pathologist Sig nature AST 30 23 - 58 U/L [facility] Specimen Performing Organization Address [facility]/ZIP Code Phon e Number [facility] [address] [place] [address] SERVICES [facility] [address] [place] [address] ALT (09/23/2008 4:05 EST) Pathologist Sig nature ALT 15 10 - 25 U/L [facility] Specimen Performing Organization Address City/[facility]/ZIP Code Phon e Number [facility] [address] [place] [address] SERVICES [facility] [address] [place] [address] (ABNORMAL) ALKALINE PHOSPHATASE (09/23/2008 4:05 EST) Pathologist Sig nature Alkaline Phosphatase 98 (L) 150 - 350 U/L [facility] Specimen Performing Organization Address City/[facility]/ZIP Code Phon e Number [facility] [address] [place] [address] SERVICES [facility] [address] [place] [address] CALCIUM (09/23/2008 4:05 EST) Pathologist Sig nature Calcium 8.8 8.8 - 11.1 mg/dl [facility] Calculated Calcium 9.6 8.8 - 11.1 mg/dl [facility] Specimen Performing Organization Address City/[facility]/ZIP Code Phon e Number [facility] [address] [place] [address] SERVICES [facility] [address] [place] [address] (ABNORMAL) ELECTROLYTES (09/23/2008 4:05 EST) Pathologist Sig nature Sodium 137 136 - 145 mEq/L [facility] Potassium 3.3 (L) 3.6 - 5.2 mEq/L [facility] Chloride 100 96 - 110 mEq/L [facility] CO2 28 24 - 32 mEq/L [facility] Specimen Performing Organization Address City/[facility]/ZIP Code Phon e Number [facility] [address] [place] [address] SERVICES [facility] [address] [place] [address] PTT (09/23/2008 4:05 EST) Pathologist Sig nature PTT 35Comment: 20 - 35 secs [facility] Therapeutic Heparin range: 60-100 seconds Specimen Performing Organization Address [facility] Phon e Number [facility] [address] [place] [address] SERVICES [facility] [address] [place] [address] PROTIME (09/23/2008 4:05 EST) Pro Time 14.1 12.0 - 15.0 [facility] secs I.N.R. 1.1 0.9 - 1.1 [facility] Comment: Ratio Moderate Intensity Coumadin INR = 2.0-3.0 Adjustments in anticoagulant therapy dose should be based upon the INR and NOT the Pro Time. Specimen Performing Organization Address [facility] Phon e Number [facility] [address] [place] [address] SERVICES [facility] [address] [place] [address] VANCOMYCIN TROUGH (09/22/2008 16:15 EST) Pathologist Sig nature Vancomycin Trough 5.9 ug/ml [facility] Vancomycin Dose Start Date [id number] [facility] Vancomycin Dose Start Time 1600 [facility] Specimen Performing Organization Address [facility]/[place] [facility] Phon e Number [facility] [address] [place] [address] SERVICES [facility] [address] [place] [address] CT SINUS COMPLETE WO CONTRAST (09/22/2008 13:21 EST) Anatomical Region Laterality Modality Other Specimen Narrative [facility] - 03/27/2009 8: 37 EDT 8 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 Comparison: None available. Technique: Axial noncontrast CT images o f the paranasal sinuses were obtained with coronal and sagittal refor mations. Findings: There is minimal mucosal thick ening in the maxillary and sphenoid sinuses. There are no paranasal sinus air-fluid levels. There is narrowing of the left osteomeat al unit by mucosal thickening. The right OMU is patent. The re is no significant nasal septal deviation. Impression: Minimal paranasal sinus muco garima thickening without radiographic evidence of acute sinusitis . 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 Comparison: None available. Technique: Axial noncontrast CT images o f the paranasal sinuses were obtained with coronal and sagittal refor mations. Findings: There is minimal mucosal thick ening in the maxillary and sphenoid sinuses. There are no paranasal sinus air-fluid levels. There is narrowing of the left osteomeat al unit by mucosal thickening. The right OMU is patent. The re is no significant nasal septal deviation. Impression: Minimal paranasal sinus muco garima thickening without radiographic evidence of acute sinusitis . Performing Organization Address City/State/ZIP Code Phon e Number [facility] [address] [facility] [address] [facility] [address] [place], [place] [address] (ABNORMAL) HEMAGRAM AND DIFFERENTIAL (09/22/2008 4:00 EST) WBC 0.66 (LL) 4.5 - 13.5 [facility] K/cmm RBC 3.43 (L) 4.00 - 6.20 [facility] M/cmm Hemoglobin 10.4 (L) 11.5 - 15.5 [facility] gm/dl HCT 29.8 (L) 35.0 - 45.0 % [facility] MCV Not calculated 77 - 95 fl [facility] MCH 30.4 pg [facility] MCHC 35.0 gm/dl [facility] PLT 60 (L) 156 - 312 K/cmm [facility] RDW-CV 14.5 % [facility] Neutrophils 0.0 % [facility] Lymphocytes 100.0 % [facility] ABS Neutrophils 0.00 (LL) K/cmm [facility] ABS Lymphs 0.66 K/cmm [facility] RBC Morphology 1+ Anisocytosis [facility] Type of Diff: Manual [facility] Specimen Performing Organization Address City/[facility]/[place] [facility] Phon e Number [facility] [address] [place] [address] SERVICES [facility] [address] [place] [address] BACTERIAL CULTURE, BLOOD (09/21/2008 18:00 EST) Specimen Description Blood [facility] Pediatric bottle received RED LUMEN Result No growth [facility] Report Status Final [facility] [id number] Specimen Performing Organization Address City/[facility]/[place] [facility] Phon e Number [facility] [address] [place] [address] SERVICES [facility] [address] [place] [address] BACTERIAL CULTURE, BLOOD (09/21/2008 18:00 EST) Specimen Description Blood [facility] Pediatric bottle received WHITE LUMEN Result No growth [facility] Report Status Final [facility] [id number] Specimen Performing Organization Address [facility]/[place] [facility] Phon e Number [facility] [address] [place] [address] SERVICES [facility] [address] [place] [address] FUNGUS CULTURE, BLOOD (09/21/2008 18:00 EST) Specimen Description Blood [facility] WHITE LUMEN Result No fungi isolated [facility] Report Status Final [facility] 10/20/2008 Specimen Performing Organization Address [facility]/[place] [facility] Phon e Number [facility] [address] [place] [address] SERVICES [facility] [address] [place] [address] FUNGUS CULTURE, BLOOD (09/21/2008 18:00 EST) Pathologist [facility] Specimen Description Blood [facility] RED LUMEN Result No fungi isolated [facility] Report Status Final [facility] 10/20/2008 Specimen Performing Organization Address [facility] Phon e Number [facility] [address] [place] [address] SERVICES [facility] [address] [place] [address] (ABNORMAL) HEMAGRAM AND DIFFERENTIAL (09/21/2008 5:05 EST) WBC 0.59 (LL) 4.5 - 13.5 [facility] K/cmm RBC 3.73 (L) 4.00 - 6.20 [facility] M/cmm Hemoglobin 11.4 (L) 11.5 - 15.5 [facility] gm/dl HCT 32.0 (L) 35.0 - 45.0 % [facility] MCV Not calculated 77 - 95 fl [facility] MCH 30.6 pg [facility] MCHC 35.7 gm/dl [facility] PLT 32 (L) 156 - 312 [facility] K/cmm RDW-CV 13.1 % [facility] Neutrophils 0.0 % [facility] Lymphocytes 99.0 % [facility] Monocytes 1.0 % [facility] ABS Neutrophils 0.00 (LL) K/cmm [facility] ABS Lymphs 0.58 K/cmm [facility] ABS Monocytes 0.01 K/cmm [facility] RBC Morphology 1+ Poikilocytosis [facility] Type of Diff: Manual [facility] Specimen Performing Organization Address [facility]/[place] [facility] Phon e Number [facility] [address] [place] [address] SERVICES [facility] [address] [place] [address] BACTERIAL CULTURE, BLOOD (09/20/2008 19:52 EST) Specimen Description Blood [facility] [place] Pediatric bottle received Result No growth [facility] Report Status Final [facility] [id number] Specimen Performing Organization Address City/[facility] Code Phon e Number [facility] [address] [place] [address] SERVICES [facility] [address] [place] [address] BACTERIAL CULTURE, BLOOD (09/20/2008 19:45 EST) Specimen Description Blood [facility] [place] Pediatric bottle received Result No growth [facility] Report Status Final [facility] [id number] Specimen Performing Organization Address [facility] Phon e Number [facility] [address] [place] [address] SERVICES [facility] [address] [place] [address] (ABNORMAL) HEMAGRAM AND DIFFERENTIAL (09/20/2008 19:45 EST) WBC 0.34 (LL) 4.5 - 13.5 [facility] K/cmm RBC 3.76 (L) 4.00 - 6.20 [facility] M/cmm Hemoglobin 11.4 (L) 11.5 - 15.5 [facility] gm/dl HCT 31.4 (L) 35.0 - 45.0 % [facility] MCV 83 77 - 95 fl [facility] MCH 30.4 pg [facility] MCHC 36.4 gm/dl [facility] PLT 15 (LL) 156 - 312 K/cmm [facility] RDW-CV 13.6 % [facility] Neutrophils 0.0 % [facility] Lymphocytes 100.0 % [facility] ABS Neutrophils 0.00 (LL) K/cmm [facility] ABS Lymphs 0.34 K/cmm [facility] Cells Counted 50 [facility] RBC Morphology 1+ Anisocytosis [facility] Type of Diff: Manual [facility] Specimen Performing Organization Address City/[facility]/ZIP Code Phon e Number [facility] [address] [place] [address] SERVICES [facility] [address] [place] [address] (ABNORMAL) HEMAGRAM AND DIFFERENTIAL (09/20/2008 9:45 EST) Pathologist Sig nature WBC 0.43 (LL) 4.5 - 13.5 [facility] K/cmm RBC 2.52 (L) 4.00 - 6.20 [facility] M/cmm Hemoglobin 7.6 (L) 11.5 - 15.5 [facility] gm/dl HCT 21.0 (L) 35.0 - 45.0 % [facility] MCV Not Available 77 - 95 fl [facility] MCH 30.3 pg [facility] MCHC 36.3 gm/dl [facility] PLT 17 (LL) 156 - 312 K/cmm [facility] RDW-CV 13.5 % [facility] Neutrophils 0.0 % [facility] Lymphocytes 100.0 % [facility] ABS Neutrophils 0.00 (LL) K/cmm [facility] ABS Lymphs 0.43 K/cmm [facility] Cells Counted 50 [facility] RBC Morphology Normal [facility] Type of Diff: Manual [facility] Specimen Performing Organization Address City/[facility]/ZIP Code Phon e Number [facility] [address] [place] [address] SERVICES [facility] [address] [place] [address] (ABNORMAL) HEMAGRAM (09/20/2008 2:40 EST) Pathologist Sig nature WBC 0.31 (LL) 4.5 - 13.5 K/cmm [facility] RBC 3.05 (L) 4.00 - 6.20 M/cmm [facility] Hemoglobin 9.1 (L) 11.5 - 15.5 gm/dl [facility] HCT 25.0 (L) 35.0 - 45.0 % [facility] MCV 82 77 - 95 fl [facility] MCH 29.8 pg [facility] MCHC 36.4 gm/dl [facility] PLT 28 (L) 156 - 312 K/cmm [facility] RDW-CV 13.9 % [facility] Specimen Performing Organization Address City/[facility]/ZIP Code Phon e Number [facility] [address] [place] [address] SERVICES [facility] [address] [place] [address] PORTABLE CHEST 1 VIEW (09/20/2008 0:31 EST) Anatomical Region Laterality Modality Other Specimen Narrative [facility] - 03/27/2009 9: 43 EDT 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 Rule out pneumonia, pneumot horax, effusion. Findings: Single portable upright view o f the chest was obtained. A tunneled hemodialysis catheter is identi fied inserting in the right upper chest terminating at the superior cavoatrial junction. The cardiothymic silhouette is within normal limits. The lungs are clear without evidence of infiltrate. No pleur al effusion is seen. There is no evidence of pneumothorax. The upper a bdomen is normal. Impression: Normal study. I have personally reviewed the images an d the above interpretation and agree with the findings. 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 Rule out pneumonia, pneumot horax, effusion. Findings: Single portable upright view o f the chest was obtained. A tunneled hemodialysis catheter is identi fied inserting in the right upper chest terminating at the superior cavoatrial junction. The cardiothymic silhouette is within normal limits. The lungs are clear without evidence of infiltrate. No pleur al effusion is seen. There is no evidence of pneumothorax. The upper a bdomen is normal. Impression: Normal study. I have personally reviewed the images an d the above interpretation and agree with the findings. Performing Organization Address City/State/ZIP Code Phon e Number [facility] [address] [facility] [address] [facility] [address] [place], [place] [address] (ABNORMAL) HEMAGRAM AND DIFFERENTIAL (09/20/2008 0:30 EST) WBC 0.25 (LL) 4.5 - 13.5 [facility] K/cmm RBC 2.96 (L) 4.00 - 6.20 [facility] M/cmm Hemoglobin Not Available 11.5 - 15.5 [facility] gm/dl HCT 24.0 (L) 35.0 - 45.0 % [facility] MCV Not Available 77 - 95 fl [facility] MCH Not calculated pg [facility] MCHC Not calculated gm/dl [facility] PLT 33 (L) 156 - 312 [facility] K/cmm RDW-CV 13.8 % [facility] Neutrophils 0.0 % [facility] Lymphocytes 96.0 % [facility] Atyp Lymphs 4.0 % [facility] ABS Neutrophils 0.00 (LL) K/cmm [facility] ABS Lymphs 0.24 K/cmm [facility] ABS Atyp Lymphs 0.01 K/cmm [facility] Cells Counted 50 [facility] RBC Morphology 1+ Poikilocytosis [facility] Type of Diff: Manual [facility] Specimen Performing Organization Address City/State/ZIP Code Phon e Number [facility] [address] [place] [address] SERVICES [facility] [address] [place] [address] BACTERIAL CULTURE, BLOOD (09/19/2008 15:53 EST) Specimen Blood [facility] Description Pediatric bottle received LAB [place] Result ALPHA HEMOLYTIC STREPTOCOCCU S. Isolated organism is NOT Streptococcus bovis. [facility] Isolated in one bottle. First detected at: LAB 14 hours. Report Status Final [facility] 09/23/2008 LAB Specimen Performing Organization Address City/[facility] Phon e Number [facility] [address] [place] [address] SERVICES [facility] [address] [place] [address] FUNGUS CULTURE, BLOOD (09/19/2008 15:53 EST) Specimen Blood [facility] Description [place] LAB Result ALPHA HEMOLYTIC STREPTOCOCCU S. Isolated organism is NOT Streptococcus bovis. [facility] Colwell morphology consistent with other culture from same site/ source collected on the same LAB day. No fungi isolated Report Status Final [facility] 10/18/2008 LAB Specimen Performing Organization Address [facility]/ZIP Code Phon e Number [facility] [address] [place] [address] SERVICES [facility] [address] [place] [address] BACTERIAL CULTURE, BLOOD (09/19/2008 15:52 EST) Specimen Blood [facility] Description Pediatric bottle received LAB [place] Result ALPHA HEMOLYTIC STREPTOCOCCU S. Isolated organism is NOT Streptococcus bovis. [facility] Isolated in one bottle. First detected at: LAB 14 hours. Report Status Final [facility] 09/23/2008 LAB Specimen Performing Organization Address [facility] Phon e Number [facility] [address] [place] [address] SERVICES [facility] [address] [place] [address] FUNGUS CULTURE, BLOOD (09/19/2008 15:52 EST) Specimen Blood [facility] Description [place] LAB Result ALPHA HEMOLYTIC STREPTOCOCCU S. Isolated organism is NOT Streptococcus bovis. [facility] Colwell morphology consistent with other culture from same site/ source collected on the same LAB day. No fungi isolated Report Status Final [facility] 10/18/2008 LAB Specimen Performing Organization Address [facility] Phon e Number [facility] [address] [place] [address] SERVICES [facility] [address] [place] [address] CREATININE (09/19/2008 4:55 EST) Pathologist Sig nature Creatinine 0.52 0.1 - 0.7 mg/dl [facility] GFR, Calculated Age <18 ml/min/1.73m2 [facility] Specimen Performing Organization Address [facility]/[place] [facility] Phon e Number [facility] [address] [place] [address] SERVICES [facility] [address] [place] [address] TESTS ADDED BY PHONE (09/19/2008 4:55 EST) Pathologist Sig nature Tests to be added CREAT [facility] Who Called DR UMA [facility] LAB Location Code B5 [facility] Specimen Performing Organization Address City/[facility]/ZIP Code Phon e Number [facility] [address] [place] [address] SERVICES [facility] [address] [place] [address] (ABNORMAL) HEMAGRAM AND DIFFERENTIAL (09/19/2008 4:55 EST) WBC 0.69 (LL) 4.5 - 13.5 [facility] K/cmm RBC 3.34 (L) 4.00 - 6.20 [facility] M/cmm Hemoglobin 10.0 (L) 11.5 - 15.5 [facility] gm/dl HCT 27.3 (L) 35.0 - 45.0 % [facility] MCV 82 77 - 95 fl [facility] MCH 29.8 pg [facility] MCHC 36.5 gm/dl [facility] PLT 13 (LL) 156 - 312 [facility] K/cmm RDW-CV 13.6 % [facility] Neutrophils 0.0 % [facility] Lymphocytes 98.0 % [facility] Atyp Lymphs 1.0 % [facility] Monocytes 1.0 % [facility] ABS Neutrophils 0.00 (LL) K/cmm [facility] ABS Lymphs 0.67 K/cmm [facility] ABS Atyp Lymphs 0.01 K/cmm [facility] ABS Monocytes 0.01 K/cmm [facility] RBC Morphology 1+ Poikilocytosis [facility] 1+ Teardrop cells Type of Diff: Manual [facility] Specimen Performing Organization Address City/[facility]/ZIP Code Phon e Number [facility] [address] [place] [address] SERVICES [facility] [address] [place] [address] GLUCOSE, SERUM (09/19/2008 4:55 EST) Pathologist Sig nature Glucose, Serum 84 70 - 100 mg/dl [facility] Specimen Performing Organization Address City/[facility]/ZIP Code Phon e Number [facility] [address] [place] [address] SERVICES [facility] [address] [place] [address] BUN (09/19/2008 4:55 EST) Pathologist Sig nature BUN 12 7 - 18 mg/dl [facility] Specimen Performing Organization Address City/State/ZIP Code Phon e Number [facility] [address] [place] [address] SERVICES [facility] [address] [place] [address] TOTAL & DIRECT BILIRUBIN (09/19/2008 4:55 EST) Pathologist Sig nature Conjugated Bilirubin 0.0 0.0 - 0.3 mg/dl [facility] B Unconjugated Bilirubin 0.6 0.1 - 1.1 mg/dl [facility] Bilirubin, Total 0.5 0.0 - 1.4 mg/dl [facility] Specimen Performing Organization Address City/State/ZIP Code Phon e Number [facility] [address] [place] [address] SERVICES [facility] [address] [place] [address] AST (09/19/2008 4:55 EST) Pathologist Sig nature AST 39 23 - 58 U/L [facility] Specimen Performing Organization Address City/State/ZIP Code Phon e Number [facility] [address] [place] [address] SERVICES [facility] [address] [place] [address] ALT (09/19/2008 4:55 EST) Pathologist Sig nature ALT 16 10 - 25 U/L [facility] Specimen Performing Organization Address City/[facility]/ZIP Code Phon e Number [facility] [address] [place] [address] SERVICES [facility] [address] [place] [address] (ABNORMAL) ALKALINE PHOSPHATASE (09/19/2008 4:55 EST) Pathologist Sig nature Alkaline Phosphatase 136 (L) 150 - 350 U/L [facility] Specimen Performing Organization Address City/[facility]/ZIP Code Phon e Number [facility] [address] [place] [address] SERVICES [facility] [address] [place] [address] ELECTROLYTES (09/19/2008 4:55 EST) Pathologist Sig nature Sodium 141 136 - 145 mEq/L [facility] Potassium 4.5 3.6 - 5.2 mEq/L [facility] Chloride 102 96 - 110 mEq/L [facility] CO2 26 24 - 32 mEq/L [facility] Specimen Performing Organization Address City/[facility]/ZIP Code Phon e Number [facility] [address] [place] [address] SERVICES [facility] [address] [place] [address] (ABNORMAL) HEMAGRAM AND DIFFERENTIAL (09/18/2008 4:15 EST) WBC 0.84 (LL) 4.5 - 13.5 [facility] K/cmm RBC 3.28 (L) 4.00 - 6.20 [facility] M/cmm Hemoglobin 9.8 (L) 11.5 - 15.5 [facility] gm/dl HCT 27.0 (L) 35.0 - 45.0 % [facility] MCV 82 77 - 95 fl [facility] MCH 30.0 pg [facility] MCHC 36.5 gm/dl [facility] PLT 17 (LL) 156 - 312 [facility] K/cmm RDW-CV 14.5 % [facility] Neutrophils 0.0 % [facility] Lymphocytes 99.0 % [facility] Atyp Lymphs 1.0 % [facility] ABS Neutrophils 0.00 (LL) K/cmm [facility] ABS Lymphs 0.83 K/cmm [facility] ABS Atyp Lymphs 0.01 K/cmm [facility] RBC Morphology 1+ Anisocytosis [facility] 1+ Microcytes 1+ Poikilocytosis 1+ Teardrop cells Type of Diff: Manual [facility] Specimen Performing Organization Address City/[facility]/ZIP Code Phon e Number [facility] [address] [place] [address] SERVICES [facility] [address] [place] [address] (ABNORMAL) HEMAGRAM AND DIFFERENTIAL (09/17/2008 5:05 EST) WBC 0.90 (LL) 4.5 - 13.5 [facility] K/cmm RBC 2.49 (L) 4.00 - 6.20 [facility] M/cmm Hemoglobin Not Available 11.5 - 15.5 [facility] gm/dl HCT 21.0 (L) 35.0 - 45.0 % [facility] MCV Not Available 77 - 95 fl [facility] MCH Not calculated pg [facility] MCHC Not calculated gm/dl [facility] PLT 28 (L) 156 - 312 K/cmm [facility] RDW-CV 14.0 % [facility] Neutrophils 5.0 % [facility] Lymphocytes 95.0 % [facility] ABS Neutrophils 0.05 (LL) K/cmm [facility] ABS Lymphs 0.85 K/cmm [facility] RBC Morphology Normal [facility] Type of Diff: Manual [facility] Specimen Performing Organization Address City/[facility] Code Phon e Number [facility] [address] [place] [address] SERVICES [facility] [address] [place] [address] (ABNORMAL) HEMAGRAM AND DIFFERENTIAL (09/16/2008 5:16 EST) WBC 0.86 (LL) 4.5 - 13.5 [facility] K/cmm RBC 2.50 (L) 4.00 - 6.20 [facility] M/cmm Hemoglobin 7.5 (L) 11.5 - 15.5 [facility] gm/dl HCT 20.9 (LL) 35.0 - 45.0 % [facility] MCV 84 77 - 95 fl [facility] MCH 30.0 pg [facility] MCHC 35.9 gm/dl [facility] PLT 51 (L) 156 - 312 [facility] K/cmm RDW-CV 14.2 % [facility] Neutrophils 19.0 % [facility] Lymphocytes 80.0 % [facility] Basophils 1.0 % [facility] ABS Neutrophils 0.16 (LL) K/cmm [facility] ABS Lymphs 0.69 K/cmm [facility] ABS Basophils 0.01 K/cmm [facility] RBC Morphology 1+ Poikilocytosis [facility] Type of Diff: Manual [facility] Specimen Performing Organization Address City/State/ZIP Code Phon e Number [facility] [address] [place] [address] SERVICES [facility] [address] [place] [address] (ABNORMAL) HEMAGRAM AND DIFFERENTIAL (09/15/2008 4:30 EST) WBC 1.43 (L) 4.5 - 13.5 [facility] K/cmm RBC 2.49 (L) 4.00 - 6.20 [facility] M/cmm Hemoglobin 7.7 (L) 11.5 - 15.5 [facility] gm/dl HCT 22.0 (L) 35.0 - 45.0 % [facility] MCV 88 77 - 95 fl [facility] MCH 30.9 pg [facility] MCHC 35.0 gm/dl [facility] PLT 22 (L) 156 - 312 [facility] K/cmm RDW-CV 13.8 % [facility] Neutrophils 32.0 % [facility] Lymphocytes 67.0 % [facility] Basophils 1.0 % [facility] ABS Neutrophils 0.46 (LL) K/cmm [facility] ABS Lymphs 0.96 K/cmm [facility] ABS Basophils 0.01 K/cmm [facility] RBC Morphology 1+ Microcytes [facility] 1+ Poikilocytosis Type of Diff: Manual [facility] Specimen Performing Organization Address City/[facility]/ZIP Code Phon e Number [facility] [address] [place] [address] SERVICES [facility] [address] [place] [address] TOTAL PROTEIN (09/14/2008 4:25 EST) Pathologist Sig nature Total Protein 6.5 5.9 - 7.8 g/dl [facility] Specimen Performing Organization Address City/[facility] Code Phon e Number [facility] [address] [place] [address] SERVICES [facility] [address] [place] [address] CREATININE (09/14/2008 4:25 EST) Pathologist Sig nature Creatinine 0.30 0.1 - 0.7 mg/dl [facility] GFR, Calculated Age <18 ml/min/1.73m2 [facility] Specimen Performing Organization Address City/[facility]/ZIP Code Phon e Number [facility] [address] [place] [address] SERVICES [facility] [address] [place] [address] BUN (09/14/2008 4:25 EST) Pathologist Sig nature BUN 15 7 - 18 mg/dl [facility] Specimen Performing Organization Address [facility]/ZIP Code Phon e Number [facility] [address] [place] [address] SERVICES [facility] [address] [place] [address] TOTAL & DIRECT BILIRUBIN (09/14/2008 4:25 EST) Pathologist Sig nature Conjugated Bilirubin 0.0 0.0 - 0.3 mg/dl [facility] B Unconjugated Bilirubin 0.6 0.1 - 1.1 mg/dl [facility] Bilirubin, Total <0.5 0.0 - 1.4 mg/dl [facility] Specimen Performing Organization Address [facility] Phon e Number [facility] [address] [place] [address] SERVICES [facility] [address] [place] [address] AST (09/14/2008 4:25 EST) Pathologist Sig nature AST 33 23 - 58 U/L [facility] Specimen Performing Organization Address City/[facility]/ZIP Code Phon e Number [facility] [address] [place] [address] SERVICES [facility] [address] [place] [address] ALT (09/14/2008 4:25 EST) Pathologist Sig nature ALT 22 10 - 25 U/L [facility] Specimen Performing Organization Address City/[facility]/ZIP Code Phon e Number [facility] [place] [facility] [address] [place] [address] SERVICES [facility] [address] [place] [address] ALBUMIN (09/14/2008 4:25 EST) Pathologist Sig nature Albumin 4.0 3.5 - 5.2 g/dl [facility] Specimen Performing Organization Address [facility]/ZIP Code Phon e Number [facility] [address] [place] [address] SERVICES [facility] [address] [place] [address] ELECTROLYTES (09/14/2008 4:25 EST) Pathologist [facility] nature Sodium 141 136 - 145 mEq/L [facility] Potassium 3.9 3.6 - 5.2 mEq/L [facility] Chloride 106 96 - 110 mEq/L [facility] CO2 26 24 - 32 mEq/L [facility] Specimen Performing Organization Address City/[facility]/ZIP Code Phon e Number [facility] [address] [place] [address] SERVICES [facility] [address] [place] [address] (ABNORMAL) HEMAGRAM AND DIFFERENTIAL (09/14/2008 4:25 EST) Pathologist [facility] WBC 1.28 (L) 4.5 - 13.5 [facility] K/cmm RBC 2.73 (L) 4.00 - 6.20 [facility] M/cmm Hemoglobin 8.2 (L) 11.5 - 15.5 [facility] gm/dl HCT 23.4 (L) 35.0 - 45.0 % [facility] MCV 86 77 - 95 fl [facility] MCH 30.2 pg [facility] MCHC 35.3 gm/dl [facility] PLT 46 (L) 156 - 312 [facility] K/cmm RDW-CV 14.5 % [facility] Neutrophils 42.0 % [facility] Lymphocytes 57.0 % [facility] Eosinophils 1.0 % [facility] ABS Neutrophils 0.54 K/cmm [facility] ABS Lymphs 0.73 K/cmm [facility] ABS Eosinophils 0.01 K/cmm [facility] RBC Morphology 1+ Anisocytosis [facility] 1+ Poikilocytosis 1+ Microcytes Type of Diff: Manual [facility] Specimen Performing Organization Address City/[facility]/ZIP Code Phon e Number [facility] [address] [place] [address] SERVICES [facility] [address] [place] [address] CULTURE IF UA POSITIVE (09/13/2008 14:50 EST) Pathologist [facility] Culture if Culture not [facility] Indicated indicated by urinalysis results. Specimen Performing Organization Address City/[facility]/[place] [facility] Phon e Number [facility] [address] [place] [address] SERVICES [facility] [address] [place] [address] (ABNORMAL) UA WITH MICROSCOPIC (09/13/2008 14:50 EST) Color, UA Yellow [facility] Clarity, UA Clear [facility] Glucose, UA Norm NORM [facility] Bilirubin, UA Neg NEG [facility] Ketones, UA Neg NEG [facility] Specific [place], 1.010 1.005 - 1.02 [facility] Urine LAB Blood, UA Neg NEG [facility] pH, UA 8.0 5.0 - 9.0 [facility] Protein, UA Neg NEG [facility] Urobilinogen, UA 1.0 (A) NORM mg/dL [facility] Nitrite, UA Neg NEG [facility] Leuk Esterase Neg NEG [facility] WBC, UA None seen 0 - 5 /HPF [facility] RBC, UA None seen 0 - 5 /HPF [facility] Squam Epithel, UA None seen NS /HPF [facility] Renal Epithel, UA None seen NS /HPF [facility] Bacteria, UA None seen NS /HPF [facility] Crystals, UA None seen /HPF [facility] Hyaline Casts, UA None seen /LPF [facility] Comment Microscopic results [facility] are unreliable on LAB urines unrefrig >2hrs or refrig >8hrs. Specimen Performing Organization Address City/[facility]/ZIP Code Phon e Number [facility] [address] [place] [address] SERVICES [facility] [address] [place] [address] (ABNORMAL) HEMAGRAM AND DIFFERENTIAL (09/13/2008 5:10 EST) WBC 1.23 (L) 4.5 - 13.5 [facility] K/cmm RBC 2.65 (L) 4.00 - 6.20 [facility] M/cmm Hemoglobin 8.2 (L) 11.5 - 15.5 [facility] gm/dl HCT 22.6 (L) 35.0 - 45.0 % [facility] MCV 85 77 - 95 fl [facility] MCH 30.9 pg [facility] MCHC 36.2 gm/dl [facility] PLT 60 (L) 156 - 312 [facility] K/cmm RDW-CV 14.3 % [facility] Neutrophils 46.0 % [facility] Lymphocytes 53.0 % [facility] Eosinophils 1.0 % [facility] ABS Neutrophils 0.57 K/cmm [facility] ABS Lymphs 0.65 K/cmm [facility] ABS Eosinophils 0.01 K/cmm [facility] RBC Morphology 1+ Anisocytosis [facility] 1+ Poikilocytosis Type of Diff: Manual [facility] Specimen Performing Organization Address City/State/ZIP Code Phon e Number [facility] [address] [place] [address] SERVICES [facility] [address] [place] [address] (ABNORMAL) HEMAGRAM AND DIFFERENTIAL (09/12/2008 4:45 EST) Pathologist Sig nature WBC 3.26 (L) 4.5 - 13.5 K/cmm [facility] RBC 2.70 (L) 4.00 - 6.20 M/cmm [facility] Hemoglobin 8.3 (L) 11.5 - 15.5 gm/dl [facility] HCT 23.2 (L) 35.0 - 45.0 % [facility] MCV 86 77 - 95 fl [facility] MCH 30.7 pg [facility] MCHC 35.8 gm/dl [facility] PLT 80 (L) 156 - 312 K/cmm [facility] RDW-CV 15.0 % [facility] Neutrophils 86.2 % [facility] Lymphocytes 13.4 % [facility] Monocytes 0.0 % [facility] Eosinophils 0.4 % [facility] Basophils 0.0 % [facility] ABS Neutrophils 2.81 K/cmm [facility] ABS Lymphs 0.44 K/cmm [facility] ABS Monocytes 0.00 K/cmm [facility] ABS Eosinophils 0.01 K/cmm [facility] ABS Basophils 0.00 K/cmm [facility] Type of Diff: Automated [facility] Specimen Performing Organization Address City/[facility]/ZIP Code Phon e Number [facility] [address] [place] [address] SERVICES [facility] [address] [place] [address] (ABNORMAL) HEMAGRAM AND DIFFERENTIAL (09/11/2008 3:45 EST) WBC 1.81 (L) 4.5 - 13.5 [facility] K/cmm RBC 2.91 (L) 4.00 - 6.20 [facility] M/cmm Hemoglobin 9.1 (L) 11.5 - 15.5 [facility] gm/dl HCT 25.0 (L) 35.0 - 45.0 % [facility] MCV 86 77 - 95 fl [facility] MCH 31.2 pg [facility] MCHC 36.3 gm/dl [facility] PLT 114 (L) 156 - 312 K/cmm [facility] RDW-CV 14.5 % [facility] Neutrophils 55.0 % [facility] Lymphocytes 43.0 % [facility] Basophils 2.0 % [facility] ABS Neutrophils 0.99 K/cmm [facility] ABS Lymphs 0.78 K/cmm [facility] ABS Basophils 0.04 K/cmm [facility] RBC Morphology 1+ Anisocytosis [facility] Poikilocytosis Type of Diff: Manual [facility] Specimen Performing Organization Address City/[facility]/ZIP Code Phon e Number [facility] [address] [place] [address] SERVICES [facility] [address] [place] [address] (ABNORMAL) HEMAGRAM AND DIFFERENTIAL (09/10/2008 4:50 EDT) Pathologist Sig nature WBC 2.42 (L) 4.5 - 13.5 K/cmm [facility] RBC 2.98 (L) 4.00 - 6.20 M/cmm [facility] Hemoglobin 9.3 (L) 11.5 - 15.5 gm/dl [facility] HCT 25.7 (L) 35.0 - 45.0 % [facility] MCV 86 77 - 95 fl [facility] MCH 31.1 pg [facility] MCHC 36.0 gm/dl [facility] PLT 132 (L) 156 - 312 K/cmm [facility] RDW-CV 14.3 % [facility] Neutrophils 75.1 % [facility] Lymphocytes 22.8 % [facility] Monocytes 1.1 % [facility] Eosinophils 0.8 % [facility] Basophils 0.2 % [facility] ABS Neutrophils 1.82 K/cmm [facility] ABS Lymphs 0.55 K/cmm [facility] ABS Monocytes 0.03 K/cmm [facility] ABS Eosinophils 0.02 K/cmm [facility] ABS Basophils 0.01 K/cmm [facility] Type of Diff: Automated [facility] Specimen Performing Organization Address City/State/ZIP Code Phon e Number [facility] [address] [place] [address] SERVICES [facility] [address] [place] [address] (ABNORMAL) HEMAGRAM AND DIFFERENTIAL (09/09/2008 5:15 EDT) Pathologist Sig nature WBC 2.44 (L) 4.5 - 13.5 K/cmm [facility] RBC 3.01 (L) 4.00 - 6.20 M/cmm [facility] Hemoglobin 9.3 (L) 11.5 - 15.5 gm/dl [facility] HCT 26.1 (L) 35.0 - 45.0 % [facility] MCV 86 77 - 95 fl [facility] MCH 30.8 pg [facility] MCHC 35.6 gm/dl [facility] PLT 144 (L) 156 - 312 K/cmm [facility] RDW-CV 14.9 % [facility] Neutrophils 76.6 % [facility] Lymphocytes 20.7 % [facility] Monocytes 2.3 % [facility] Eosinophils 0.2 % [facility] Basophils 0.2 % [facility] Neutrophils 1.87 K/cmm [facility] Lymphs 0.51 K/cmm [facility] Monocytes 0.06 K/cmm [facility] Eosinophils 0.01 K/cmm [facility] Basophils 0.01 K/cmm [facility] Type of Diff: Automated [facility] Specimen Performing Organization Address City/[facility]/ZIP Code Phon e Number [facility] [address] [place] [address] SERVICES [facility] [address] [place] [address] CREATININE (09/08/2008 4:35 EDT) Pathologist Sig nature Creatinine 0.40 0.1 - 0.7 mg/dl [facility] GFR, Calculated Age <18 ml/min/1.73m2 [facility] Specimen Performing Organization Address [facility]/ZIP Code Phon e Number [facility] [address] [place] [address] SERVICES [facility] [address] [place] [address] BUN (09/08/2008 4:35 EDT) Pathologist Sig nature BUN 11 7 - 18 mg/dl [facility] Specimen Performing Organization Address [facility]/ZIP Code Phon e Number [facility] [address] [place] [address] SERVICES [facility] [address] [place] [address] ELECTROLYTES (09/08/2008 4:35 EDT) Pathologist Sig nature Sodium 141 136 - 145 mEq/L [facility] Potassium 3.9 3.6 - 5.2 mEq/L [facility] Chloride 107 96 - 110 mEq/L [facility] CO2 26 24 - 32 mEq/L [facility] Specimen Performing Organization Address [facility]/ZIP Code Phon e Number [facility] [address] [place] [address] SERVICES [facility] [address] [place] [address] (ABNORMAL) HEMAGRAM AND DIFFERENTIAL (09/08/2008 4:35 EDT) WBC 1.76 (L) 4.5 - 13.5 [facility] K/cmm RBC 3.06 (L) 4.00 - 6.20 [facility] M/cmm Hemoglobin 9.4 (L) 11.5 - 15.5 [facility] gm/dl HCT 26.8 (L) 35.0 - 45.0 % [facility] MCV 87 77 - 95 fl [facility] MCH 30.5 pg [facility] MCHC 34.9 gm/dl [facility] PLT 145 (L) 156 - 312 K/cmm [facility] RDW-CV 15.2 % [facility] Neutrophils 59.0 % [facility] Lymphocytes 36.0 % [facility] Monocytes 2.0 % [facility] Eosinophils 1.0 % [facility] Basophils 2.0 % [facility] Neutrophils 1.03 K/cmm [facility] Lymphs 0.63 K/cmm [facility] Monocytes 0.04 K/cmm [facility] Eosinophils 0.02 K/cmm [facility] ABS Basophils 0.04 K/cmm [facility] RBC Morphology 1+ Anisocytosis [facility] Type of Diff: Manual [facility] Specimen Performing Organization Address City/[facility]/[place] [facility] Number [facility] [address] [place] [address] SERVICES [facility] [address] [place] [address] CREATININE (09/07/2008 3:50 EDT) Pathologist Sig nature Creatinine 0.40 0.1 - 0.7 mg/dl [facility] GFR, Calculated Age <18 ml/min/1.73m2 [facility] Specimen Performing Organization Address City/[facility]/ZIP Code Phon e Number [facility] [address] [place] [address] SERVICES [facility] [address] [place] [address] BUN (09/07/2008 3:50 EDT) Pathologist Sig nature BUN 7 7 - 18 mg/dl [facility] Specimen Performing Organization Address City/[facility]/ZIP Code Phon e Number [facility] [address] [place] [address] SERVICES [facility] [address] [place] [address] ELECTROLYTES (09/07/2008 3:50 EDT) Pathologist [facility] nature Sodium 138 136 - 145 mEq/L [facility] Potassium 4.2 3.6 - 5.2 mEq/L [facility] Chloride 103 96 - 110 mEq/L [facility] CO2 25 24 - 32 mEq/L [facility] Specimen Performing Organization Address [facility]/[place] [facility] [place] Phon e Number [facility] [address] [place] [address] SERVICES [facility] [address] [place] [address] (ABNORMAL) HEMAGRAM AND DIFFERENTIAL (09/07/2008 3:50 EDT) Pathologist [facility] WBC 4.37 (L) 4.5 - 13.5 [facility] K/cmm RBC 3.30 (L) 4.00 - 6.20 [facility] M/cmm Hemoglobin 10.3 (L) 11.5 - 15.5 [facility] gm/dl HCT 28.7 (L) 35.0 - 45.0 % [facility] MCV 87 77 - 95 fl [facility] MCH 31.2 pg [facility] MCHC 35.8 gm/dl [facility] PLT 188 156 - 312 K/cmm [facility] RDW-CV 16.2 % [facility] Neutrophils 87.0 % [facility] Lymphocytes 9.0 % [facility] Monocytes 4.0 % [facility] Neutrophils 3.81 K/cmm [facility] ABS Lymphs 0.39 K/cmm [facility] Monocytes 0.17 K/cmm [facility] RBC Morphology 1+ Anisocytosis [facility] 1+ Ovalocytes 1+ Microcytes Type of Diff: Manual [facility] Specimen Performing Organization Address City/[facility]/ZIP Code Phon e Number [facility] [address] [place] [address] SERVICES [facility] [address] [place] [address] FUNGUS CULTURE, BLOOD (09/07/2008 3:50 EDT) Pathologist [facility] Specimen Description Blood [facility] WHITE LUMEN Isolator tube received Result No fungi isolated [facility] Report Status Final [facility] 10/06/2008 Specimen Performing Organization Address City/[facility]/ZIP Code Phon e Number [facility] [address] [place] [address] SERVICES [facility] [address] [place] [address] BACTERIAL CULTURE, BLOOD (09/07/2008 3:50 EDT) Specimen Description Blood [facility] WHITE LUMEN Pediatric bottle received Result No growth [facility] Report Status Final [facility] [id number] Specimen Performing Organization Address [facility] Code Phon e Number [facility] [address] [place] [address] SERVICES [facility] [address] [place] [address] BACTERIAL CULTURE, BLOOD (09/07/2008 3:50 EDT) Specimen Description Blood [facility] RED LUMEN Pediatric bottle received Result No growth [facility] Report Status Final [facility] [id number] Specimen Performing Organization Address [facility] Phon e Number [facility] [address] [place] [address] SERVICES [facility] [address] [place] [address] FUNGUS CULTURE, BLOOD (09/07/2008 3:50 EDT) Specimen Description Blood [facility] RED LUMEN Isolator tube received Result One colony only [facility] STAPHYLOCOCCUS, COAGULASE NEGATIVE Report Status Final [facility] 10/06/2008 Specimen Performing Organization Address [facility] Phon e Number [facility] [address] [place] [address] SERVICES [facility] [address] [place] [address] CREATININE (09/06/2008 4:30 EDT) Pathologist Sig nature Creatinine 0.40 0.1 - 0.7 mg/dl [facility] GFR, Calculated Age <18 ml/min/1.73m2 [facility] Specimen Performing Organization Address City/[facility]/ZIP Code Phon e Number [facility] [address] [place] [address] SERVICES [facility] [address] [place] [address] BUN (09/06/2008 4:30 EDT) Pathologist Sig nature BUN 14 7 - 18 mg/dl [facility] Specimen Performing Organization Address [facility] Code Phon e Number [facility] [address] [place] [address] SERVICES [facility] [address] [place] [address] ELECTROLYTES (09/06/2008 4:30 EDT) Pathologist Sig nature Sodium 142 136 - 145 mEq/L [facility] Potassium 4.1 3.6 - 5.2 mEq/L [facility] Chloride 108 96 - 110 mEq/L [facility] CO2 24 24 - 32 mEq/L [facility] Specimen Performing Organization Address [facility] Phon e Number [facility] [address] [place] [address] SERVICES [facility] [address] [place] [address] (ABNORMAL) HEMAGRAM AND DIFFERENTIAL (09/06/2008 4:30 EDT) Pathologist Sig nature WBC 4.51 4.5 - 13.5 K/cmm [facility] RBC 3.30 (L) 4.00 - 6.20 M/cmm [facility] Hemoglobin 10.3 (L) 11.5 - 15.5 gm/dl [facility] HCT 29.0 (L) 35.0 - 45.0 % [facility] MCV 88 77 - 95 fl [facility] MCH 31.1 pg [facility] MCHC 35.4 gm/dl [facility] PLT 304 156 - 312 K/cmm [facility] RDW-CV 14.6 % [facility] Neutrophils 67.4 % [facility] Lymphocytes 15.7 % [facility] Monocytes 15.8 % [facility] Eosinophils 0.3 % [facility] Basophils 0.8 % [facility] ABS Neutrophils 3.04 K/cmm [facility] ABS Lymphs 0.71 K/cmm [facility] ABS Monocytes 0.71 K/cmm [facility] ABS Eosinophils 0.01 K/cmm [facility] Basophils 0.04 K/cmm [facility] Type of Diff: Automated [facility] Specimen Performing Organization Address City/[facility]/ZIP Code Phon e Number [facility] [address] [place] [address] SERVICES [facility] [address] [place] [address] (ABNORMAL) FLUID DIFFERENTIAL (09/05/2008 12:07 EDT) Pathologist Sig nature Lymphocyte, CSF 83 (H) 40 - 80 % [facility] [place], CSF 17 15 - 45 % [facility] Cells Counted 24 [facility] Comment Reviewed by Dr. DARRIAN MUSA Vinod Specimen Performing Organization Address [facility] Phon e Number [facility] [address] [place] [address] SERVICES [facility] [address] [place] [address] TOTAL PROTEIN, CSF (09/05/2008 12:07 EDT) Pathologist Sig nature Total Protein, CSF 12 mg/dl [facility] Specimen Performing Organization Address [facility] Phon e Number [facility] [address] [place] [address] SERVICES [facility] [address] [place] [address] GLUCOSE CSF (09/05/2008 12:07 EDT) Pathologist Sig nature Glucose, CSF 51 mg/dl [facility] Comment: Ref Range=60-80% of plasma glucose result Specimen Performing Organization Address [facility] Phon e Number [facility] [address] [place] [address] SERVICES [facility] [address] [place] [address] CSF CELL COUNT (09/05/2008 12:07 EDT) RBC, CSF None seen /cmm [facility] Nucleated Cells None seen 0 - 10 /cmm [facility] Total Vol. 5.5 ml [facility] Tube Cntd. 2 [facility] Total Vol. 3.0 ml [facility] Comment Clear and Colorless [facility] Specimen Performing Organization Address [facility]/[place] [facility] Ph[place] e [facility] [address] [place] [address] SERVICES [facility] [address] [place] [address] FLOW CYTOMETRY (09/05/2008 11:40 EDT) Pathology FLOW CYTOMETRY REPORT ? [facility] Report: ? LAB Reports generated via electr onic interface contain original data; ? however they are lacking the format of the original report. ? Caution should be taken when reading/interpreting unformatted reports. ? Name: ? DIANA PERRIN ? Accession #: ? [id number] ? : ? 2000 (Age: 8) ??M ?Collect Date: ? 09/05/2008 11:40 ? Location: ? [facility] ? Receive Date: ? 09/05/2008 12:15 ? Provider: ?JULIET SA SAVANNAH MD ? Copy to: ?[employer] [employer] ? Specimen/ Type: ?B one Marrow - ??Flow Cytometry ? 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 Immunophenotype Analysis ? Date Tested: ??09/05/08 ? Description: ? The specimen consists of [...] subsets represented . ??The remaining lymphocytes are B-lymphocytes ? (CD19+CD20+CD22+) and NK-renetta ls (CD2+CD3-CD16+CD56+). ??Among the B-cells, both ?? kappa+ and lambda+ subsets a re represented. ??The remainder of the CD45+ events ?? is predominantly of myeloid lineage. ??There is no increase in blasts or ? prominent plasma cells. ??A prominent population of hematogones is present. ? The results of flow cytometr y show no immunophenotypic evidence of involvement ?? by a clonal lymphoproliferat brina or myeloproliferative disorder. ??Correlation of these findings with morpholo gic and clinical data is essential; please refer to bone marrow report ([id number] ) for morphologic details. ? Final Immunophenotypic Inter pretation: ? Bone marrow, flow cyt ometric analysis: ? No immunophenotypic e vidence of a clonal cell population. ??See description. ? This test was developed and its performance characteristics determined by the ?? Department of Pathology and Laboratory Medicine, [facility], ? [facility]. ??It has not been cleared or approved by the U.S. Food and Drug ?? Administration. ? Document reviewed and electr onically signed by: ? KIMBERLY J VINOD MD ? Report Date: ??09/06/2008 11 :52 ? By the signature above, the attending physician certifies that he/she has ? personally conducted an eval uation of the described specimen and rendered or ? confirmed the above diagnosi s. ? End of Report ? Specimen Performing Organization Address City/State/ZIP Code Phon e Number [facility] [address] [place] [address] SERVICES [facility] [address] [place] [address] BONE MARROW EXAM (09/05/2008 11:40 EDT) Preliminary Bone CELLULAR (2% BLASTS) [[id number]] [facility] Marrow Exam PRELIMINARY REPORT, SEE HEMATOPATHOLOGY REPORT FOR FINAL REPORT LAB Reviewed by Dr. Brock Specimen Performing Organization Address City/[facility]/ZIP Code Phon e Number [facility] [address] [place] [address] SERVICES [facility] [address] [place] [address] NOTE: LABORATORY USE ONLY (09/05/2008 10:50 EDT) Pathologist Sig nature Note A smear is filed in the [facility] Hematology lab Specimen Performing Organization Address City/[facility]/ZIP Code Phon e Number [facility] [address] [place] [address] SERVICES [facility] [address] [place] [address] (ABNORMAL) HEMAGRAM AND DIFFERENTIAL (09/05/2008 10:50 EDT) Pathologist Sig nature WBC 4.66 4.5 - 13.5 K/cmm [facility] RBC 3.63 (L) 4.00 - 6.20 M/cmm [facility] Hemoglobin 11.3 (L) 11.5 - 15.5 gm/dl [facility] HCT 31.6 (L) 35.0 - 45.0 % [facility] MCV 87 77 - 95 fl [facility] MCH 31.1 pg [facility] MCHC 35.7 gm/dl [facility] PLT 345 (H) 156 - 312 K/cmm [facility] RDW-CV 14.4 % [facility] Neutrophils 36.0 % [facility] Lymphocytes 46.3 % [facility] Monocytes 17.0 % [facility] Eosinophils 0.3 % [facility] Basophils 0.4 % [facility] ABS Neutrophils 1.68 K/cmm [facility] ABS Lymphs 2.16 K/cmm [facility] ABS Monocytes 0.79 K/cmm [facility] ABS Eosinophils 0.02 K/cmm [facility] Basophils 0.02 K/cmm [facility] Type of Diff: Automated [facility] Specimen Performing Organization Address [facility] Code Phon e Number [facility] [address] [place] [address] SERVICES [facility] [address] [place] [address] (ABNORMAL) PHOSPHORUS (09/05/2008 10:50 EDT) Pathologist Sig nature Phosphorus 5.8 (H) 4.1 - 5.4 mg/dl [facility] Specimen Performing Organization Address [facility]/ZIP Code Phon e Number [facility] [address] [place] [address] SERVICES [facility] [address] [place] [address] MAGNESIUM (09/05/2008 10:50 EDT) Pathologist Sig nature Magnesium 2.0 1.7 - 2.8 mg/dl [facility] Specimen Performing Organization Address [facility] Code Phon e Number [facility] [address] [place] [address] SERVICES [facility] [address] [place] [address] DIRECT BILIRUBIN (09/05/2008 10:50 EDT) Pathologist Sig nature Conjugated Bilirubin 0.0 0.0 - 0.3 mg/dl [facility] Unconjugated Bilirubin 0.4 0.1 - 1.1 mg/dl [facility] Specimen Performing Organization Address [facility]/[place] [facility] [place] Ph[place] e Number [facility] [address] [place] [address] SERVICES [facility] [address] [place] [address] (ABNORMAL) COMPREHENSIVE METABOLIC PANEL (09/05/2008 10:50 EDT) Pathologist Sig nature Potassium 4.6 3.6 - 5.2 mEq/L [facility] Sodium 139 136 - 145 mEq/L [facility] Chloride 102 96 - 110 mEq/L [facility] CO2 24 24 - 32 mEq/L [facility] Alkaline Phosphatase 174 150 - 350 U/L [facility] Bilirubin, Total <0.5 0.0 - 1.4 mg/dl [facility] AST 37 23 - 58 U/L [facility] ALT 33 (H) 10 - 25 U/L [facility] Albumin 4.7 3.5 - 5.2 g/dl [facility] Total Protein 7.1 5.9 - 7.8 g/dl [facility] Creatinine 0.46 0.1 - 0.7 mg/dl [facility] GFR, Calculated Age <18 ml/min/1.73m2 [facility] BUN 11 7 - 18 mg/dl [facility] Calcium 9.5 8.8 - 11.1 mg/dl [facility] Calculated Calcium 9.2 8.8 - 11.1 mg/dl [facility] Glucose, Serum 86 70 - 100 mg/dl [facility] Fasting? Yes [facility] Specimen Performing Organization Address City/State/ZIP Code Phon e Number [facility] [address] [place] [address] SERVICES [facility] [address] [place] [address] documented in this encounter Visit Diagnoses Not on filedocumented in this encounter
--- OUTSIDE RECORDS SUMMARY | 2022-05-10 08:33 | XMS_ITS | Encounter Summary ---
:[address] [facility] Address [address] [place] [address] Care Team Providers Name Role Phone Unavailable Primary Care Provider Unavailable Encounter Details Date Type Department Care Team Description 06/17/2008 Hospital Encounter [facility] - Brandi Kam NP [address] [place] [phone] [facility] Rene MD [address] [place] [phone] [place] [phone] Social History Tobacco Use Types Packs/Day Years Used Date Never Assessed Sex Assigned at Date Recorded Not on file documented as of this encounter Discharge Disposition Disposition Code Departure Means Destination Auto Discharge documented in this encounter Plan of Treatment Upcoming Encounters Date Type Specialty Care Team Description 12/18/2022 Ancillary Procedure Cardiology 12/18/2022 Office Visit Cardiology Bg Kelsey MD [address] [facility] Level [address] [place], [place] [phone] (Wo rk) documented as of this encounter Procedures Procedure Name Priority Date/Time Associated Comments Diagnosis COMPLETE BLOOD COUNT Routine 07/25/2008 10:18 Res ults for this AND DIFFERENTIAL EDT procedure a re in the results section. COMPREHENSIVE Routine 07/25/2008 10:18 Results fo r this METABOLIC PANEL (CMP) EDT proced ure are in the results section. CYTOPATHOLOGY Routine 06/20/2008 0:00 Results for this EDT procedure are i n the results section. CT CHEST WO CONTRAST 06/17/2008 8:28 Resu lts for this EDT procedure are i n the results section. documented in this encounter Results (ABNORMAL) HEMAGRAM AND DIFFERENTIAL (07/25/2008 10:18 EDT) WBC 3.08 (L) 4.5 - 13.5 [facility] RBC 2.93 (L) 4.00 - 6.20 [facility] Hemoglobin 9.0 (L) 11.5 - 15.5 [facility] gm/dl LAB HCT 25.6 (L) 35.0 - 45.0 [facility] % LAB MCV 87 77 - 95 fl [facility] MCH 30.7 pg [facility] MCHC 35.1 gm/dl [facility] PLT 245 156 - 312 [facility] RDW-CV 13.9 % [facility] Neutrophils 4.0 % [facility] Lymphocytes 82.0 % [facility] Monocytes 14.0 % [facility] Comment: LAB ??Corrected on 07/25 AT 1226: Previously reported as 13.0 Metamyelocytes 0.0 % [facility] Comment: LAB ??Corrected on 07/25 AT 1226: Previously reported as 1.0 ABS Neutrophils 0.12 (LL) K/cmm [facility] ABS Lymphs 2.53 K/cmm [facility] ABS Monocytes 0.43 K/cmm [facility] Comment: LAB ??Corrected on 07/25 AT 1226: Previously reported as 0.40 ABS Metamyelocytes 0.00 K/cmm [facility] Comment: LAB ??Corrected on 07/25 AT 1226: Previously reported as 0.03 RBC Morphology 1+ Anisocytosis [facility] Type of Diff: Manual [facility] Specimen Performing Organization Address City/State/ZIP Code Phon e Number [facility] [address] [place] [address] SERVICES [facility] [address] [place] [address] (ABNORMAL) COMPREHENSIVE METABOLIC PANEL (07/25/2008 10:18 EDT) Pathologist Sig nature Potassium 4.1 3.6 - 5.2 mEq/L [facility] Sodium 141 136 - 145 mEq/L [facility] Chloride 107 96 - 110 mEq/L [facility] CO2 24 24 - 32 mEq/L [facility] Alkaline Phosphatase 169 150 - 350 U/L [facility] Bilirubin, Total <0.5 0.0 - 1.4 mg/dl [facility] AST 46 23 - 58 U/L [facility] ALT 31 (H) 10 - 25 U/L [facility] Albumin 4.5 3.5 - 5.2 g/dl [facility] Total Protein 6.9 5.9 - 7.8 g/dl [facility] Creatinine 0.45 0.1 - 0.7 mg/dl [facility] GFR, Calculated Age <18 ml/min/1.73m2 [facility] BUN 14 7 - 18 mg/dl [facility] Calcium 9.1 8.8 - 11.1 mg/dl [facility] Calculated Calcium 9.0 8.8 - 11.1 mg/dl [facility] Glucose, Serum 102 (H) 70 - 100 mg/dl [facility] Fasting? No [facility] Specimen Performing Organization Address City/State/ZIP Code Phon e Number [facility] [address] [place] [address] SERVICES [facility] [address] [place] [address] CYTOPATHOLOGY (06/20/2008 0:00 EDT) Pathology Report: CYTOPATHOLOGY REPORT ? [facility] ? LAB Reports generated via electr onic interface contain original data; ? however they are lacking the format of the original report. ? Caution should be taken when reading/interpreting unformatted reports. ? Name: ? DIANA ROSS ? Accession #: ? [id number] ? : ? 2000 (Age: 8) ??M ?Collect Date: ? 06/20/2008 ? Location: ? B005 ? Receive Date: ? 06/20/2008 ? Provider: ? MINAL AGUIRRE I MD ? Copy to: ?ELIDA M PAT NO MD ? Specimen Type: ? Bronchial Lavage ? Clinical History: ? 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 Gross Description: ? 10cc' s of opaque romeo mucoid fluid were received and processed by selective cellular enhancement techniq ue. ? CYTOLOGIC DIAGNOSIS: ? A. ?Bronchial l avage, cytologic evaluation: ?- No malig nant cells identified. ? B. ?Organisms ? ?silver stain: ?- No organ isms have been identified on silver staining. ? C. ?Iron stain: ? - No zanav dipika noted on iron staining in the presence of good ? controls. ? D. ?Lipid-laden macrophage test ??Oil O Red staining: ?- A count of 169/400 has been obtained, strongly suggesting the ? presence of lipoid pneumonia . ? - Very marked acut e inflammatory infiltrate present. ? COMMENT: ? According to Cristiane and Maribeth (Pediatric Pulmonology, 3:86-89, 1987), ?? if a patient has a low lipid laden macrophage index (on Oil Red O stain), they ?? would not believe that aspir ation is the cause of respiratory problems; however, if the index is 90 or above, they would be strongly suspicious of recurrent ? aspiration. ??This result wa s telephoned through to Dr. Longoria on June 20, 2008 at 4 PM. ??(Dr. Chu)/g ? Document reviewed and electr onically signed by: ? Alfonzo Granger ? Report Date: ??06/20/2008 17 :53 ? By the signature above, the attending physician certifies that he/she has ? personally conducted a gross and/or microscopic examination of the described ? specimens and rendered or co nfirmed the above diagnosis. ? End of Report ? Specimen Performing Organization Address City/State/ZIP Code Phon e Number [facility] [address] [place] [phone] SERVICES [facility] [address] [place] [address] CT CHEST WO CONTRAST (06/17/2008 8:28 EDT) Anatomical Region Laterality Modality Other Specimen Narrative [facility] - 04/23/2009 13 :46 EDT productive cough, h/o fungal infection, aml. CT CHEST WO/CONTRAST ??Jun 17, 2008 8:28: 00 AM Signs and Symptoms: ??productive cough, h/o fungal infection, aml. Comparison: May 31, 2008 Technique: A single breath-hold helical CT acquisit ion was performed through the chest on a multidetector-row scanner wit h a reconstructed slice thickness of 3 mm and retrospectively re constructed 0.9 mm thick sections with 0.45 mm overlapping interv als. ??The scans were obtained from the lung apices through the bases. ??Scans were reviewed on a dedicated PACS workstation for analysis. Findings: The bones and soft tissues are normal. Evaluation of the upper abdomen is hampered by lack of con trast material, but no abnormality is observed. There is no evidence of pleural or peric ardial fluid. No enlarged nodes are visible within the mediastinum . The tip of the right jugular catheter is in the lower SVC. There has been a marked deterioration in the appearance of the lungs which now have widespread tree-in-bud op acities bilaterally area an area of consolidation is present in the lower portion of the lingula the airways are thickened. No nodules ar e present. The central airways are patent and no bronchiectasis is identified. 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 The re are no specific findings to suggest fungal infection. Procedure Note Ridge Vázquez MD - 04/23/2009 productive cough, h/o fungal infection, aml. CT CHEST WO/CONTRAST Jun 17, 2008 8:28:00 AM Signs and Symptoms: productive cough, h/ o fungal infection, aml. Comparison: May 31, 2008 Technique: A single breath-hold helical CT acquisit ion was performed through the chest on a multidetector-row scanner wit h a reconstructed slice thickness of 3 mm and retrospectively re constructed 0.9 mm thick sections with 0.45 mm overlapping interv als. The scans were obtained from the lung apices through the bases. Scans were reviewed on a dedicated PACS workstation for analysis. Findings: The bones and soft tissues are normal. Evaluation of the upper abdomen is hampered by lack of con trast material, but no abnormality is observed. There is no evidence of pleural or peric ardial fluid. No enlarged nodes are visible within the mediastinum . The tip of the right jugular catheter is in the lower SVC. There has been a marked deterioration in the appearance of the lungs which now have widespread tree-in-bud op acities bilaterally area an area of consolidation is present in the lower portion of the lingula the airways are thickened. No nodules ar e present. The central airways are patent and no bronchiectasis is identified. 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 The re are no specific findings to suggest fungal infection. Performing Organization Address City/State/ZIP Code Phon e Number [facility] [address] [facility] [address] [facility] [address] [place], [place] [address] documented in this encounter Visit Diagnoses Not on filedocumented in this encounter Orders Lab Orders Without Results Count Last Ordered Date Fir st Ordered Date CYTOPATHOLOGY 1 06/20/2008 documented in this encounter
--- OUTSIDE RECORDS SUMMARY | 2022-05-10 08:33 | XMS_ITS | Encounter Summary ---
:2000 Author Organization [facility] Address [address] [place] [address] Care Team Providers Name Role Phone Unavailable Primary Care Provider Unavailable Encounter Details Date Type Department Care Team Description 06/16/2008 Hospital [facility] 111 [facility] [address] [place], [place] [id number] [place] [phone] (Wo rk) Social History Tobacco Use Types [...] Cardiology Bg Kelsey MD 111 [facility], Level [address] [place], [place] [phone] (Wo rk) documented as of this encounter Procedures Procedure Name Priority Date/Time Associated Comments Diagnosis COMPLETE BLOOD COUNT Routine 06/16/2008 13:00 Res ults for this AND DIFFERENTIAL EDT procedure a re in the results section. BILIRUBIN Routine 06/16/2008 13:00 Results for this DIRECT/INDIRECT EDT procedure ar e in the results section. COMPREHENSIVE Routine 06/16/2008 13:00 Results fo r this METABOLIC PANEL (CMP) EDT proced ure are in the results section. documented in this encounter Results DIRECT BILIRUBIN (06/16/2008 13:00 EDT) Pathologist Sig nature Conjugated Bilirubin 0.0 0.0 - 0.3 mg/dl [facility] Unconjugated Bilirubin 0.4 0.1 - 1.1 mg/dl [facility] Specimen Performing Organization Address City/State/ZIP Code Phon e Number [facility] [address] [place] [address] SERVICES [facility] [address] [place] [address] (ABNORMAL) HEMAGRAM AND DIFFERENTIAL (06/16/2008 13:00 EDT) WBC 23.22 (H) 4.5 - 13.5 [facility] RBC 3.33 (L) 4.00 - 6.20 [facility] Hemoglobin 10.9 (L) 11.5 - 15.5 [facility] gm/dl LAB HCT 30.2 (L) 35.0 - 45.0 [facility] % LAB MCV 91 77 - 95 fl [facility] MCH 32.7 pg [facility] MCHC 36.0 gm/dl [facility] PLT 362 (H) 156 - 312 [facility] RDW-CV Not Available % [facility] Neutrophils 68.0 % [facility] Bands 1.0 % [facility] Lymphocytes 16.0 % [facility] Monocytes 11.0 % [facility] Myelocytes 2.0 % [facility] Promyelocytes 1.0 % [facility] Blasts 1.0 % [facility] ABS Neutrophils 15.80 K/cmm [facility] ABS Bands 0.23 K/cmm [facility] ABS Lymphs 3.72 K/cmm [facility] ABS Monocytes 2.55 K/cmm [facility] ABS Myelocytes 0.46 K/cmm [facility] ABS Promyelocytes 0.23 K/cmm [facility] ABS Blasts 0.23 K/cmm [facility] RBC Morphology NRBC seen on scan [facility] 1+ Polychromasia LAB 2+ Anisocytosis 1+ Poikilocytosis 1+ Macrocytes 1+ Microcytes 1+ Ovalocytes 1+ Teardrop cells WBC Morphology 1+ Smudge cells [facility] Comment Reviewed by Dr. Harris [facility] Type of Diff: Manual [facility] Specimen Performing Organization Address City/[facility]/ZIP Code Phon e Number [facility] [address] [place] [address] SERVICES [facility] [address] [place] [address] (ABNORMAL) COMPREHENSIVE METABOLIC PANEL (06/16/2008 13:00 EDT) Pathologist Sig nature Potassium 4.4 3.6 - 5.2 mEq/L [facility] Sodium 139 136 - 145 mEq/L [facility] Chloride 103 96 - 110 mEq/L [facility] CO2 24 24 - 32 mEq/L [facility] Alkaline Phosphatase 139 (L) 150 - 350 U/L [facility] Bilirubin, Total <0.5 0.0 - 1.4 mg/dl [facility] AST 42 23 - 58 U/L [facility] ALT 19 10 - 25 U/L [facility] Albumin 4.8 3.5 - 5.2 g/dl [facility] Total Protein 7.7 5.9 - 7.8 g/dl [facility] Creatinine 0.37 0.1 - 0.7 mg/dl [facility] GFR, Calculated Age <18 ml/min/1.73m2 [facility] BUN 12 7 - 18 mg/dl [facility] Calcium 9.3 8.8 - 11.1 mg/dl [facility] Calculated Calcium 8.9 8.8 - 11.1 mg/dl [facility] Glucose, Serum 106 (H) 70 - 100 mg/dl [facility] Fasting? No [facility] Specimen Performing Organization Address City/[facility]/ZIP Code Phon e Number [facility] [address] [place] [address] SERVICES [facility] [address] [place] [address] documented in this encounter Visit Diagnoses Not on filedocumented in this encounter
--- OUTSIDE RECORDS SUMMARY | 2022-05-10 08:33 | XMS_ITS | Encounter Summary ---
:2002 Author Organization [facility] Address [address] [place] [address] Care Team Providers Name Role Phone Unavailable Primary Care Provider Unavailable Encounter Details Date Type Department Care Team Description 06/20/2008 - Hospital Encounter [facility] Javiers Elle Rene MD 07/22/2008 [facility] Pediatric [address] [place] [address] [address] [place] [address] [phone] (Wo rk) Social History Tobacco Use Types Packs/Day Years Used Date Never Assessed Sex Assigned at Date Recorded Not on file documented as of this encounter Discharge Summaries Bob Rankin MD - 05/21/2009 1153 EDT HISS DISCHARGE SUMMARY ADDRESS: [address] [place] [id number] PHONE: [phone] ATTENDING PHYSICIAN: ELLE RENE MD ADDRESS: [facility] [address] [place] [address] PHONE: [phone] REFERRING PHYSICIAN: MINAL OLIVERA MD ADDRESS: [facility] [address] [place] [address] PHONE: [phone] ADMISSION DATE: 06/20/08 SERVICE: PED. MEDICINE TRANSFER TO : DISCHARGE DATE: 07/22/08 SERVICE: PED. MEDICINE CHIEF COMPLAINT / REASON FOR ADMISSION: cough, AML chemotherapy PRINCIPAL/FINAL DIAGNOSIS: Pneumonia SECONDARY/FINAL DIAGNOSIS: AML PRINCIPAL PROCEDURE: Bronchoscopy CONDITION AT DISCHARGE: Stable Improved RELEVANT STUDIES: Bronchoscopy 06/20: lavage grew mycelia sterilia on 07/20 CXR 06/21: bilateral pneumonia DISPOSITION AT DISCHARGE: Home without home health services - Nursing, PT, OT, APPLICATIONS SUPPORT ANALYST ALLERGIES: The following allergies were reported by [...] SUSPENSION, FRIDAY, FRIDAY, FRIDAY, BY MOUTH 2) FLUCONAZOLE ORAL SYRINGE / (diflucan (restricted to id approval)) 125MG SUSPENSION, ONCE A DAY, BY MOUTH 3) CHLORHEXIDINE GLUCONATE / (peridex) 15ML SOLUTION, EVERY 12 HOURS, SWISH & *SPIT* MEDICATIONS YOU WERE TAKING PRIOR TO ADMISSION THAT SHOULD BE STOPPED: NONE HERBAL REMEDIES, NUTRITIONAL SUPPLEMENTS, AND [id number] MEDICATIONS that have not been prescribed by a physician may have significant adverse side effect or may interfere with the medications that have been prescribed for you. If you are taking herbal remedies, nutritional supplements, or ucuc-quz-khcncjt medications you are strongly encouraged to discontinue their use until you have discussed your use of these products with your primary care physician. 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 He is being treated on COG study [id number]. 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 He was hospitalizd at [facility] from 05/12 to 06/10. During that hospitalization he recieved his induction chemotherapy. That hospital course was complicated by pneumonia. He was discharged on 06/10 in stable condtion on fluconazole and Bactrim. He was generally well at home with good energy, and a persisting cough productive of yellow sputum. He was seen in hemeatology/oncology clinic 06/16 and was found to have crackles on lung exam. Chest CT demonstrated bilateral infiltrates. CBC on 06/16: WBC 15, Hgb 10.7, Hct 29.9, plt 304. At that point, a scheduled admission was planned for 06/20. At admission, Jaswinder was still feeling well with persisting cough and crackles bilaterally on lung exam. Bronchoscopy was performed and pus was seen in the bronchioles. He was first started on azithromycin and cefuroxime. When BAL revealed elevated lipid laden macrophages suspicious for aspiration pneumonia, zosyn was started in place of cefuroxime and omeprazole was added. Jaswinder improved clinically over then next week. CXR on 06/26 demonstrated improvement. He started his second chemo induction with Cytarabine, Etoposide, and Daunorubicin on 06/27. He completed chemotherapy on 07/05 and clinically continued to do very well. He remained afebrile throughout his hospitalization and was sent home on a Friday once his counts began to recover with follow up the following Friday in Heme-onc. clinic. DIET: Regular diet ACTIVITY: No restrictions on activity SYMPTOMS TO CALL YOUR DOCTOR ABOUT: Temperature greater than 100.4 degrees Difficulty breathing Breathing fast Change in mental status FOLLOW UP APPOINTMENTS: Heme-Onc clinic on 07/25 HOME INFUSION: Port Access: END OF REPORT D: BOB LEPE MD A - ZOHDocument ID: [id number] documented in this encounter Discharge Disposition Disposition Code Departure Means Destination Home or Self Care documented in this encounter H&P Notes Sarita Dai MD - 06/20/2008 0000 EDT HISTORY AND PHYSICAL EXAMINATION ADMIT DATE: 06/20/2008 CHIEF COMPLAINT AML and pneumonia. HISTORY OF PRESENT ILLNESS Jaswinder is a iuv-mptb-hyf boy diagnosed with AML on May 12, 2008. He is being treated on COG study [id number]. 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 His sister has also been identified as an HLA match by low resolution typing. Jaswinder originally was due to start day one of Induction course II today; however, he has had a significantly productive cough and comes in for further evaluation and treatment of pneumonia. Jaswinder was discharged home from the hospital on June 10, 2008, after count recovery from InductionI phase of therapy. He had his day 28 bone marrow on the date of discharge and was shown to be in remission with 1% blasts and normal trilineage hematopoiesis. Jaswinder had been on anti-infectives, including ceftazidime, vancomycin and caspofungin during his first course of therapy. He had a cough thatprompted a CT scan of his chest on May 31, 2008, that showed left lung pneumonia in the setting of significant neutropenia. No organism was ever identified during that first admission and he was discharged home from the hospital afebrile on fluconazole and Bactrim prophylaxis. Since discharge home, he has been very active and feeling well. His main complaint has been a productive cough. He coughs upwhite sputum, worse in the morning. He also has nasal discharge, green in color. He has had no fevers, no other complaints. No chest pain, no shortness of breath. He has had a good appetite and as mentioned previously a great energy level. PAST MEDICAL HISTORY No previous surgeries, allergies or medical problems. He presented with a three- week history of pallor, fatigue and occasional headaches. SOCIAL HISTORY He completed kindergarten in [place]. His family relocated to [place] in the [facility] approximately a week before his diagnosis. FAMILY HISTORY There is no history of cancers or blood disorders. CURRENT MEDICATIONS 1. Bactrim 10 mL p.o. b.i.d. Friday, Friday, Friday. 2. Fluconazole 240 mg p.o. daily. 3. Zofran 4 mg p.o. q.6 h. p.r.n. 4. Ativan 0.5 mg p.o. q.4 h. p.r.n. ALLERGIES HE HAD A REACTION TO IV VORICONAZOLE WITH SIGNIFICANT SKIN RASH, HIGH FEVERS. PRIMARY CARE DOCTOR Erika Chairez, [facility]. EXAMINATION Temperature 36.4, heart rate 100, blood pressure 100/66, respiratory rate 24. O2 saturations 93-94%.In general, Jaswinder is comfortable, well-developed and in no acute distress. HEENT: Complete alopecia. His head is normocephalic and atraumatic. His pupils are equal, round and reactive to light. Extraocular movements intact. Nose is clear. His lips are pink. Oral mucosa is most. Oropharynx is normal.Neck is supple. Lungs: He has end inspiratory crackles bilaterally, worse in the bases, and a productive cough. No tachypnea. No increased work of breathing. Heart: Normal S1 and S2. No murmurs. His abdomen is flat and soft, nontender, no hepatosplenomegaly. Male is deferred. Lymph nodes negative for cervical, supraclavicular lymphadenopathy. Musculoskeletal: His extremities are normal with no misalignments, defects or deformities. Skin: No rashes, lesions or ulcers. Neuro: Cranial nerves II-XII intact. No focal findings. LABORATORIES REVIEWED White blood cell count 15,000, hemoglobin 10.7, hematocrit 29.9, platelets 304,000, 74% neutrophils,17% lymphocytes, 8% monocytes, 1% myelocytes. Absolute neutrophil count is 11,000. IMAGING REVIEWED Jaswinder underwent a bronchoscopy this morning that showed plentiful pus in all airways. No underlying airway inflammation. CT scan of his lungs from June 17, 2008. I( personally reviewed these images): bilateral infiltrates and worsening process from previous films from May 31, 2008. IMPRESSION A gmr-bzxr-pek male with AML on COG study [id number] due for induction course two, now with pneumonia,likely from infection, unclear organism etiology, who has been afebrile, but has persistent productive cough. 1. AML.Jaswinder is due for Induction II which includes eight days of cytarabine, five days of etoposide and three days of daunorubicin. This is extremely myelosuppressive chemotherapy and will begin when we have a better control of his pneumonia. His day28 bone marrow from June 10, 2008, shows him to be in remission. 2. Pneumonia.Jaswinder has a purulent process in his airways. This could be partially treated bacterial infection versus viral infection. Clinically, and based on the radiographic appearance of his lungs, I am less suspicious for an invasive aspergillus or other mold species. He clinically does not fit the picture for PCP (no hypoxia or increased work of breating). The plan will be to treat him with broad spectrum empiric for community-acquired pneumonia, including cefuroxime and azithromycin. The bronchoalveolar lavage is pending and fungal, bacteria, AFB, viral and mycoplasma and chlamydia testing are in process. 3. Hematologic. At this point, Jaswinder has good counts and is not neutropenic. Should he develop fever greater than 38.0, obtain blood cultures through his central line and call the attending. 4. Fluids, electrolytes and nutrition. Jaswinder can eat a regular diet. 5. Secondary immune suppression. Jaswinder will continue on Bactrim Friday, Friday and Friday for his PCP prophylaxis. DISPOSITIONneeds resolution of his pneumonia and administration of his chemotherapy with subsequent recovery of his counts prior to him being able to go home. This will be a lengthy admission. Signed by Sarita Dai MD 06/21/2008 09:05 Sarita Dai MD - Sarita Dai MD P - CSS Job ID: [id number] Document ID: [id number] cc: MD Erika Macias MD documented in this encounter Procedure Notes Minal Olivera MD - 06/20/2008 0000 EDTAssociated Order(s): PROCEDURE REPORTS - SCANNED; PROCEDURE REPORTS - SCANNED BRONCHOSCOPY PROCEDURE REPORT SERVICE DATE: 06/20/2008 ATTENDING BRONCHOSCOPIST: Minal Olivera MD CRANBERRY SORTER: Bean Garcia MD REFERRING PHYSICIAN: Sarita Dai MD PROCEDURE Flexible bronchoscopy with bronchoalveolar lavage. ANESTHESIA Intravenous propofol. PREPROCEDURE DIAGNOSIS Immunocompromised host, rule out infection. POSTPROCEDURE DIAGNOSIS Immunocompromised host, rule out infection. 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 He has had no fever during this time and does not have other constitutional symptoms. NARRATIVE A 3.8-mm flexible bronchoscope was passed through a #2.5 laryngeal mask airway. The larynx was normal in appearance. A total of 1 mL of 2% lidocaine was instilled at the cords.The subglottic space was free of lesions. The trachea had normal rings, but purulent appearing secretions were present along the course of the trachea. They were seen to emanate from both the right and the left mainstem bronchus. A total of 2 mL of 1%lidocaine was instilled at the heladio. The lower bronchial branching pattern was within normal limits. The airways were not friable or edematous. Dense white-yellow purulent secretions were seen in the right upper lobe, the right lower lobe, the superior segment of the right lower lobe, the lingula, the left upper lobe, and the left lower lobe. BAL was performed with 15 mL aliquots of nonbacteriostatic normal saline in the right upper lobe, the superior segment of the right lower lobe, the basilar segment of the right lower lobe, the lingula, and the left lower lobe. A total of 75 mL of saline was instilled with a return of nearly 35 mL of purulent secretion with mucous plugs. The patient tolerated the procedure well. FINDINGS Diffuse purulent secretions, indicative of infection. COMPLICATIONS None. SPECIMENS To microbiology for bacterial, fungal, AFB, and CMV cultures; to cytopathology for silver stain, hemosiderin and lipid laden macrophage indices, and cell differential; fungal stains were also ordered. Signed by Minal Olivera MD 07/01/2008 22:12 ERIC [facility] [phone] Lahiri, MD MD [facility] [phone] D: - Minal Olivera MD Bill - FE Job ID: [id number] Document ID: [id number] cc: MD Bean Macias MD Thomas Lahiri, MD documented in this encounter Plan of Treatment Upcoming Encounters Date Type Specialty Care Team Description 12/18/2022 Ancillary Procedure Cardiology 12/18/2022 Office Visit Cardiology Bg Kelsey MD [address] [place] [facility], [address] [place] [phone] (Wo rk) documented as of this encounter Procedures Procedure Name Priority Date/Time Associated Comments Diagnosis COMPLETE BLOOD COUNT Routine 07/22/2008 4:20 Resu lts for this AND DIFFERENTIAL EDT procedure a re in the results section. COMPLETE BLOOD COUNT Routine 07/21/2008 4:15 Resu lts for this AND DIFFERENTIAL EDT procedure a re in the results section. COMPLETE BLOOD COUNT Routine 07/20/2008 5:21 Resu lts for this AND DIFFERENTIAL EDT procedure a re in the results section. COMPLETE BLOOD COUNT Routine 07/19/2008 5:10 Resu lts for this AND DIFFERENTIAL EDT procedure a re in the results section. COMPLETE BLOOD COUNT Routine 07/18/2008 8:20 Resu lts for this AND DIFFERENTIAL EDT procedure a re in the results section. COMPLETE BLOOD COUNT Routine 07/18/2008 5:30 Resu lts for this AND DIFFERENTIAL EDT procedure a re in the results section. COMPLETE BLOOD COUNT Routine 07/17/2008 4:10 Resu lts for this AND DIFFERENTIAL EDT procedure a re in the results section. COMPLETE BLOOD COUNT Routine 07/16/2008 4:00 Resu lts for this AND DIFFERENTIAL EDT procedure a re in the results section. COMPLETE BLOOD COUNT Routine 07/15/2008 5:20 Resu lts for this AND DIFFERENTIAL EDT procedure a re in the results section. COMPLETE BLOOD COUNT Routine 07/14/2008 5:10 Resu lts for this AND DIFFERENTIAL EDT procedure a re in the results section. COMPLETE BLOOD COUNT Routine 07/13/2008 4:10 Resu lts for this AND DIFFERENTIAL EDT procedure a re in the results section. COMPLETE BLOOD COUNT Routine 07/12/2008 4:35 Resu lts for this AND DIFFERENTIAL EDT procedure a re in the results section. COMPLETE BLOOD COUNT Routine 07/11/2008 3:50 Resu lts for this AND DIFFERENTIAL EDT procedure a re in the results section. TESTS ADDED BY PHONE Routine 07/10/2008 5:10 Resu lts for this EDT procedure are i n the results section. DIFFERENTIAL Routine 07/10/2008 5:10 Results for this EDT procedure are i n the results section. COMPLETE BLOOD COUNT Routine 07/10/2008 5:10 Resu lts for this EDT procedure are i n the results section. COMPLETE BLOOD COUNT Routine 07/08/2008 5:00 Resu lts for this AND DIFFERENTIAL EDT procedure a re in the results section. COMPLETE BLOOD COUNT Routine 07/06/2008 12:15 Res ults for this AND DIFFERENTIAL EDT procedure a re in the results section. COMPLETE BLOOD COUNT Routine 07/04/2008 5:05 Resu lts for this AND DIFFERENTIAL EDT procedure a re in the results section. COMPLETE BLOOD COUNT Routine 07/01/2008 5:05 Resu lts for this AND DIFFERENTIAL EDT procedure a re in the results section. COMPLETE BLOOD COUNT Routine 06/29/2008 5:00 Resu lts for this AND DIFFERENTIAL EDT procedure a re in the results section. CELL COUNT,CSF Routine 06/28/2008 10:50 Results f or this EDT procedure are i n the results section. TOTAL PROTEIN, CSF Routine 06/28/2008 10:50 Resul ts for this EDT procedure are i n the results section. GLUCOSE CSF Routine 06/28/2008 10:50 Results for this EDT procedure are i n the results section. CHEST PA AND LATERAL 06/27/2008 13:50 Res ults for this EDT procedure are i n the results section. TOTAL & DIRECT Routine 06/27/2008 12:30 Results f or this BILIRUBIN EDT procedure are i n the results section. BUN Routine 06/27/2008 12:30 Results for this EDT procedure are i n the results section. ALT Routine 06/27/2008 12:30 Results for this EDT procedure are i n the results section. AST Routine 06/27/2008 12:30 Results for this EDT procedure are i n the results section. PROTEIN, TOTAL Routine 06/27/2008 12:30 Results f or this EDT procedure are i n the results section. PHOSPHORUS Routine 06/27/2008 12:30 Results for this EDT procedure are i n the results section. MAGNESIUM Routine 06/27/2008 12:30 Results for this EDT procedure are i n the results section. GLUCOSE, SERUM Routine 06/27/2008 12:30 Results f or this EDT procedure are i n the results section. CREATININE Routine 06/27/2008 12:30 Results for this EDT procedure are i n the results section. ELECTROLYTES Routine 06/27/2008 12:30 Results for this EDT procedure are i n the results section. COMPLETE BLOOD COUNT Routine 06/27/2008 6:50 Resu lts for this AND DIFFERENTIAL EDT procedure a re in the results section. COMPLETE BLOOD COUNT Routine 06/23/2008 12:00 Res ults for this AND DIFFERENTIAL EDT procedure a re in the results section. CHEST PA AND LATERAL 06/21/2008 15:11 Res ults for this EDT procedure are i n the results section. COMPLETE BLOOD COUNT Routine 06/20/2008 12:00 Res ults for this AND DIFFERENTIAL EDT procedure a re in the results section. PROCEDURE REPORTS - 06/20/2008 9:57 Resul ts for this SCANNED EDT procedure are i n the results section. FUNGUS CULTURE/SMEAR, Routine 06/20/2008 9:47 Res ults for this RESPIRATORY EDT procedure are i n the results section. AFB CULTURE/SMEAR, Routine 06/20/2008 9:47 Result s for this RESPIRATORY EDT procedure are i n the results section. BACTERIAL Routine 06/20/2008 9:47 Results for this CULTURE/SMEAR, EDT procedure are in RESPIRATORY the results section. VIRUS CULTURE, OTHER Routine 06/20/2008 9:47 Resu lts for this EDT procedure are i n the results section. MISCELLANEOUS TEST, Routine 06/20/2008 9:00 Resul ts for this OTHER EDT procedure are i n the results section. MISCELLANEOUS TEST, Routine 06/20/2008 9:00 Resul ts for this OTHER EDT procedure are i n the results section. DIFFERENTIAL, LAVAGE Routine 06/20/2008 9:00 Resu lts for this FLUID EDT procedure are i n the results section. documented in this encounter Results (ABNORMAL) HEMAGRAM AND DIFFERENTIAL (07/22/2008 4:20 EDT) WBC 2.21 (L) 4.5 - 13.5 [facility] K/cmm RBC 2.58 (L) 4.00 - 6.20 [facility] M/cmm Hemoglobin 8.3 (L) 11.5 - 15.5 [facility] gm/dl HCT 24.0 (L) 35.0 - 45.0 % [facility] MCV Not calculated 77 - 95 fl [facility] MCH 32.0 pg [facility] MCHC 34.5 gm/dl [facility] PLT 107 (L) 156 - 312 K/cmm [facility] RDW-CV 14.1 % [facility] Neutrophils 3.0 % [facility] Lymphocytes 85.0 % [facility] Monocytes 12.0 % [facility] ABS Neutrophils 0.07 (LL) K/cmm [facility] ABS Lymphs 1.87 K/cmm [facility] ABS Monocytes 0.27 K/cmm [facility] RBC Morphology 1+ Anisocytosis [facility] 1+ Macrocytes 1+ Microcytes Type of Diff: Manual [facility] Specimen Performing Organization Address City/State/ZIP Code Phon e Number [facility] [address] [place] [address] SERVICES [facility] [address] [place] [address] (ABNORMAL) HEMAGRAM AND DIFFERENTIAL (07/21/2008 4:15 EDT) WBC 2.48 (L) 4.5 - 13.5 [facility] K/cmm RBC 2.68 (L) 4.00 - 6.20 [facility] M/cmm Hemoglobin 8.4 (L) 11.5 - 15.5 [facility] gm/dl HCT 23.0 (L) 35.0 - 45.0 % [facility] MCV 86 77 - 95 fl [facility] MCH 31.3 pg [facility] MCHC 36.4 gm/dl [facility] PLT 64 (L) 156 - 312 K/cmm [facility] RDW-CV 14.2 % [facility] Neutrophils 1.0 % [facility] Lymphocytes 82.0 % [facility] Monocytes 17.0 % [facility] Nucleated RBC's 1 /100 WBC'S [facility] ABS Neutrophils 0.02 (LL) K/cmm [facility] ABS Lymphs 2.04 K/cmm [facility] ABS Monocytes 0.42 K/cmm [facility] RBC Morphology 1+ Anisocytosis [facility] 1+ Macrocytes 1+ Microcytes 1+ Ovalocytes Type of Diff: Manual [facility] Specimen Performing Organization Address City/[facility] Code Phon e Number [facility] [address] [place] [address] SERVICES [facility] [address] [place] [address] (ABNORMAL) HEMAGRAM AND DIFFERENTIAL (07/20/2008 5:21 EDT) WBC 1.99 (L) 4.5 - 13.5 [facility] K/cmm RBC 2.57 (L) 4.00 - 6.20 [facility] M/cmm Hemoglobin 7.9 (L) 11.5 - 15.5 [facility] gm/dl HCT 22.2 (L) 35.0 - 45.0 % [facility] MCV 86 77 - 95 fl [facility] MCH 30.6 pg [facility] MCHC 35.6 gm/dl [facility] PLT 37 (L) 156 - 312 K/cmm [facility] RDW-CV 13.2 % [facility] Neutrophils 0.0 % [facility] Lymphocytes 90.0 % [facility] Monocytes 10.0 % [facility] ABS Neutrophils 0.00 (LL) K/cmm [facility] ABS Lymphs 1.79 K/cmm [facility] ABS Monocytes 0.20 K/cmm [facility] RBC Morphology 1+ Anisocytosis [facility] 1+ Ovalocytes Type of Diff: Manual [facility] Specimen Performing Organization Address City/[facility] Code Phon e Number [facility] [address] [place] [address] SERVICES [facility] [address] [place] [address] (ABNORMAL) HEMAGRAM AND DIFFERENTIAL (07/19/2008 5:10 EDT) WBC 1.90 (L) 4.5 - 13.5 [facility] K/cmm RBC 2.63 (L) 4.00 - 6.20 [facility] M/cmm Hemoglobin 8.2 (L) 11.5 - 15.5 [facility] gm/dl HCT 22.7 (L) 35.0 - 45.0 % [facility] MCV 86 77 - 95 fl [facility] MCH 31.0 pg [facility] MCHC 35.9 gm/dl [facility] PLT 26 (L) 156 - 312 K/cmm [facility] RDW-CV 14.1 % [facility] Neutrophils 0.0 % [facility] Lymphocytes 92.0 % [facility] Monocytes 6.0 % [facility] Eosinophils 2.0 % [facility] ABS Neutrophils 0.00 (LL) K/cmm [facility] ABS Lymphs 1.75 K/cmm [facility] ABS Monocytes 0.11 K/cmm [facility] ABS Eosinophils 0.04 K/cmm [facility] RBC Morphology 1+ Anisocytosis [facility] 1+ Ovalocytes Type of Diff: Manual [facility] Specimen Performing Organization Address City/State/ZIP Code Phon e Number [facility] [address] [place] [address] SERVICES [facility] [address] [place] [address] (ABNORMAL) HEMAGRAM AND DIFFERENTIAL (07/18/2008 8:20 EDT) WBC 2.03 (L) 4.5 - 13.5 [facility] K/cmm RBC 2.82 (L) 4.00 - 6.20 [facility] M/cmm Hemoglobin 8.8 (L) 11.5 - 15.5 [facility] gm/dl HCT 24.3 (L) 35.0 - 45.0 % [facility] MCV 86 77 - 95 fl [facility] MCH 31.2 pg [facility] MCHC 36.3 gm/dl [facility] PLT 26 (L) 156 - 312 K/cmm [facility] RDW-CV 14.3 % [facility] Neutrophils 1.0 % [facility] Lymphocytes 95.0 % [facility] Atyp Lymphs 1.0 % [facility] Monocytes 2.0 % [facility] Eosinophils 1.0 % [facility] ABS Neutrophils 0.02 (LL) K/cmm [facility] ABS Lymphs 1.93 K/cmm [facility] ABS Atyp Lymphs 0.02 K/cmm [facility] ABS Monocytes 0.04 K/cmm [facility] ABS Eosinophils 0.02 K/cmm [facility] RBC Morphology 1+ Anisocytosis [facility] 1+ Ovalocytes 1+ Microcytes Type of Diff: Manual [facility] Specimen Performing Organization Address City/[facility]/ZIP Code Phon e Number [facility] [address] [place] [address] SERVICES [facility] [address] [place] [address] HEMAGRAM AND DIFFERENTIAL (07/18/2008 5:30 EDT) Pathologist Sig nature WBC UNABLE TO CONFIRM 4.5 - 13.5 [facility] RESULTS,PLEASE K/cmm REDRAW RBC UNABLE TO CONFIRM 4.00 - 6.20 [facility] RESULTS,PLEASE M/cmm REDRAW Hemoglobin UNABLE TO CONFIRM 11.5 - 15.5 [facility] RESULTS,PLEASE gm/dl REDRAW HCT UNABLE TO CONFIRM 35.0 - 45.0 % [facility] RESULTS,PLEASE REDRAW MCV UNABLE TO CONFIRM 77 - 95 fl [facility] RESULTS,PLEASE REDRAW MCH UNABLE TO CONFIRM pg [facility] RESULTS,PLEASE REDRAW MCHC UNABLE TO CONFIRM gm/dl [facility] RESULTS,PLEASE REDRAW PLT UNABLE TO CONFIRM 156 - 312 K/cmm [facility] RESULTS,PLEASE REDRAW RDW-CV UNABLE TO CONFIRM % [facility] RESULTS,PLEASE REDRAW Neutrophils UNABLE TO CONFIRM % [facility] RESULTS,PLEASE REDRAW Specimen Performing Organization Address City/[facility]/ZIP Code Phon e Number [facility] [address] [place] [address] SERVICES [facility] [address] [place] [address] (ABNORMAL) HEMAGRAM AND DIFFERENTIAL (07/17/2008 4:10 EDT) Pathologist Sig nature WBC 1.95 (L) 4.5 - 13.5 [facility] K/cmm RBC 2.80 (L) 4.00 - 6.20 [facility] M/cmm Hemoglobin 8.8 (L) 11.5 - 15.5 [facility] gm/dl HCT 24.2 (L) 35.0 - 45.0 % [facility] MCV 86 77 - 95 fl [facility] MCH 31.3 pg [facility] MCHC 36.3 gm/dl [facility] PLT 39 (L) 156 - 312 K/cmm [facility] RDW-CV 14.5 % [facility] Neutrophils 0.0 % [facility] Lymphocytes 99.0 % [facility] Basophils 1.0 % [facility] ABS Neutrophils 0.00 (LL) K/cmm [facility] ABS Lymphs 1.93 K/cmm [facility] ABS Basophils 0.02 K/cmm [facility] RBC Morphology 1+ Microcytes [facility] Type of Diff: Manual [facility] Specimen Performing Organization Address City/State/ZIP Code Phon e Number [facility] [address] [place] [address] SERVICES [facility] [address] [place] [address] (ABNORMAL) HEMAGRAM AND DIFFERENTIAL (07/16/2008 4:00 EDT) WBC 1.96 (L) 4.5 - 13.5 [facility] K/cmm RBC 3.02 (L) 4.00 - 6.20 [facility] M/cmm Hemoglobin 9.5 (L) 11.5 - 15.5 [facility] gm/dl HCT 26.0 (L) 35.0 - 45.0 % [facility] MCV 86 77 - 95 fl [facility] MCH 31.4 pg [facility] MCHC 36.5 gm/dl [facility] PLT 54 (L) 156 - 312 [facility] K/cmm RDW-CV 13.5 % [facility] Neutrophils 1.0 % [facility] Lymphocytes 94.0 % [facility] Monocytes 2.0 % [facility] Eosinophils 3.0 % [facility] ABS Neutrophils 0.02 (LL) K/cmm [facility] ABS Lymphs 1.84 K/cmm [facility] ABS Monocytes 0.04 K/cmm [facility] ABS Eosinophils 0.06 K/cmm [facility] RBC Morphology 1+ Anisocytosis [facility] 1+ Microcytes 1+ Poikilocytosis 1+ Ovalocytes WBC Morphology 1+ Smudge cells [facility] Type of Diff: Manual [facility] Specimen Performing Organization Address City/[facility]/ZIP Code Phon e Number [facility] [address] [place] [address] SERVICES [facility] [address] [place] [address] (ABNORMAL) HEMAGRAM AND DIFFERENTIAL (07/15/2008 5:20 EDT) WBC 1.72 (L) 4.5 - 13.5 [facility] K/cmm RBC 2.98 (L) 4.00 - 6.20 [facility] M/cmm Hemoglobin 9.4 (L) 11.5 - 15.5 [facility] gm/dl HCT 26.0 (L) 35.0 - 45.0 % [facility] MCV 87 77 - 95 fl [facility] MCH 31.6 pg [facility] MCHC 36.2 gm/dl [facility] PLT 65 (L) 156 - 312 K/cmm [facility] RDW-CV 14.5 % [facility] Neutrophils 1.0 % [facility] Lymphocytes 96.0 % [facility] Eosinophils 3.0 % [facility] ABS Neutrophils 0.02 (LL) K/cmm [facility] ABS Lymphs 1.65 K/cmm [facility] ABS Eosinophils 0.05 K/cmm [facility] RBC Morphology 1+ Microcytes [facility] 1+ Anisocytosis Type of Diff: Manual [facility] Specimen Performing Organization Address City/[facility]/ZIP Code Phon e Number [facility] [address] [place] [address] SERVICES [facility] [address] [place] [address] (ABNORMAL) HEMAGRAM AND DIFFERENTIAL (07/14/2008 5:10 EDT) WBC 2.28 (L) 4.5 - 13.5 [facility] K/cmm RBC 3.17 (L) 4.00 - 6.20 [facility] M/cmm Hemoglobin 9.8 (L) 11.5 - 15.5 [facility] gm/dl HCT 27.6 (L) 35.0 - 45.0 % [facility] MCV 87 77 - 95 fl [facility] MCH 31.0 pg [facility] MCHC 35.5 gm/dl [facility] PLT 19 (LL) 156 - 312 K/cmm [facility] RDW-CV 14.2 % [facility] Neutrophils 1.0 % [facility] Lymphocytes 95.0 % [facility] Monocytes 1.0 % [facility] Eosinophils 3.0 % [facility] ABS Neutrophils 0.02 (LL) K/cmm [facility] ABS Lymphs 2.17 K/cmm [facility] ABS Monocytes 0.02 K/cmm [facility] ABS Eosinophils 0.07 K/cmm [facility] RBC Morphology 1+ Anisocytosis [facility] 1+ Microcytes Type of Diff: Manual [facility] Specimen Performing Organization Address City/State/ZIP Code Phon e Number [facility] [address] [place] [address] SERVICES [facility] [address] [place] [address] (ABNORMAL) HEMAGRAM AND DIFFERENTIAL (07/13/2008 4:10 EDT) WBC 2.05 (L) 4.5 - 13.5 [facility] K/cmm RBC 3.13 (L) 4.00 - 6.20 [facility] M/cmm Hemoglobin 9.9 (L) 11.5 - 15.5 [facility] gm/dl HCT 27.6 (L) 35.0 - 45.0 % [facility] MCV 88 77 - 95 fl [facility] MCH 31.7 pg [facility] MCHC 36.1 gm/dl [facility] PLT 27 (L) 156 - 312 K/cmm [facility] RDW-CV 15.1 % [facility] Neutrophils 3.0 % [facility] Lymphocytes 87.0 % [facility] Eosinophils 10.0 % [facility] ABS Neutrophils 0.06 (LL) K/cmm [facility] ABS Lymphs 1.78 K/cmm [facility] ABS Eosinophils 0.21 K/cmm [facility] RBC Morphology 1+ Anisocytosis [facility] 1+ Microcytes 1+ Ovalocytes Type of Diff: Manual [facility] Specimen Performing Organization Address City/[facility] Code Phon e Number [facility] [address] [place] [address] SERVICES [facility] [address] [place] [address] (ABNORMAL) HEMAGRAM AND DIFFERENTIAL (07/12/2008 4:35 EDT) WBC 2.32 (L) 4.5 - 13.5 [facility] K/cmm RBC 3.06 (L) 4.00 - 6.20 [facility] M/cmm Hemoglobin 9.8 (L) 11.5 - 15.5 [facility] gm/dl HCT 26.9 (L) 35.0 - 45.0 % [facility] MCV 88 77 - 95 fl [facility] MCH 32.1 pg [facility] MCHC 36.4 gm/dl [facility] PLT 40 (L) 156 - 312 K/cmm [facility] RDW-CV 14.9 % [facility] Neutrophils 9.0 % [facility] Lymphocytes 90.0 % [facility] Eosinophils 1.0 % [facility] ABS Neutrophils 0.21 (LL) K/cmm [facility] ABS Lymphs 2.09 K/cmm [facility] ABS Eosinophils 0.02 K/cmm [facility] RBC Morphology 1+ Microcytes [facility] 1+ Anisocytosis Type of Diff: Manual [facility] Specimen Performing Organization Address City/[facility] Code Phon e Number [facility] [address] [place] [address] SERVICES [facility] [address] [place] [address] (ABNORMAL) HEMAGRAM AND DIFFERENTIAL (07/11/2008 3:50 EDT) WBC 2.45 (L) 4.5 - 13.5 [facility] K/cmm RBC 2.28 (L) 4.00 - 6.20 [facility] M/cmm Hemoglobin 7.5 (L) 11.5 - 15.5 [facility] gm/dl HCT 20.4 (LL) 35.0 - 45.0 % [facility] MCV 89 77 - 95 fl [facility] MCH 32.7 pg [facility] MCHC 36.5 gm/dl [facility] PLT 10 (LL) 156 - 312 [facility] K/cmm RDW-CV 14.7 % [facility] Neutrophils 9.0 % [facility] Lymphocytes 87.0 % [facility] Eosinophils 4.0 % [facility] ABS Neutrophils 0.22 (LL) K/cmm [facility] ABS Lymphs 2.13 K/cmm [facility] ABS Eosinophils 0.10 K/cmm [facility] RBC Morphology 1+ Poikilocytosis [facility] 1+ Teardrop cells Type of Diff: Manual [facility] Specimen Performing Organization Address City/[facility]/ZIP Code Phon e Number [facility] [address] [place] [address] SERVICES [facility] [address] [place] [address] (ABNORMAL) DIFFERENTIAL (07/10/2008 5:10 EDT) Pathologist Sig nature Neutrophils 15.0 % [facility] Lymphocytes 79.0 % [facility] Eosinophils 6.0 % [facility] ABS Neutrophils 0.36 (LL) K/cmm [facility] ABS Lymphs 1.92 K/cmm [facility] ABS Eosinophils 0.15 K/cmm [facility] RBC Morphology Normal [facility] Type of Diff: Manual [facility] Specimen Performing Organization Address City/State/ZIP Code Phon e Number [facility] [address] [place] [address] SERVICES [facility] [address] [place] [address] TESTS ADDED BY PHONE (07/10/2008 5:10 EDT) Pathologist Sig nature Tests to be added DIFF DARRIAN MUSA Who Called DR SARITA [facility] Location Code B5 [facility] Specimen Performing Organization Address [facility] Phon e Number [facility] [address] [place] [address] SERVICES [facility] [address] [place] [address] (ABNORMAL) HEMAGRAM (07/10/2008 5:10 EDT) Pathologist Sig nature WBC 2.43 (L) 4.5 - 13.5 K/cmm [facility] RBC 2.47 (L) 4.00 - 6.20 M/cmm [facility] Hemoglobin 7.9 (L) 11.5 - 15.5 gm/dl [facility] HCT 22.4 (L) 35.0 - 45.0 % [facility] MCV 90 77 - 95 fl [facility] MCH 32.0 pg [facility] MCHC 35.4 gm/dl [facility] PLT 18 (LL) 156 - 312 K/cmm [facility] RDW-CV 15.8 % [facility] Specimen Performing Organization Address City/[facility] Code Phon e Number [facility] [address] [place] [address] SERVICES [facility] [address] [place] [address] (ABNORMAL) HEMAGRAM AND DIFFERENTIAL (07/08/2008 5:00 EDT) Pathologist Sig nature WBC 2.68 (L) 4.5 - 13.5 K/cmm [facility] RBC 2.65 (L) 4.00 - 6.20 M/cmm [facility] Hemoglobin 8.6 (L) 11.5 - 15.5 gm/dl [facility] HCT 24.1 (L) 35.0 - 45.0 % [facility] MCV 91 77 - 95 fl [facility] MCH 32.4 pg [facility] MCHC 35.6 gm/dl [facility] PLT 53 (L) 156 - 312 K/cmm [facility] RDW-CV 16.2 % [facility] Neutrophils 46.0 % [facility] Lymphocytes 46.0 % [facility] Monocytes 2.0 % [facility] Eosinophils 6.0 % [facility] ABS Neutrophils 1.24 K/cmm [facility] ABS Lymphs 1.23 K/cmm [facility] ABS Monocytes 0.05 K/cmm [facility] ABS Eosinophils 0.16 K/cmm [facility] RBC Morphology Normal [facility] Type of Diff: Manual [facility] Specimen Performing Organization Address City/[facility]/ZIP Code Phon e Number [facility] [address] [place] [address] SERVICES [facility] [address] [place] [address] (ABNORMAL) HEMAGRAM AND DIFFERENTIAL (07/06/2008 12:15 EDT) WBC 2.93 (L) 4.5 - 13.5 [facility] K/cmm RBC 2.87 (L) 4.00 - 6.20 [facility] M/cmm Hemoglobin 9.3 (L) 11.5 - 15.5 [facility] gm/dl HCT 25.7 (L) 35.0 - 45.0 % [facility] MCV 90 77 - 95 fl [facility] MCH 32.3 pg [facility] MCHC 36.0 gm/dl [facility] PLT 101 (L) 156 - 312 K/cmm [facility] RDW-CV 16.0 % [facility] Neutrophils 53.0 % [facility] Lymphocytes 41.0 % [facility] Eosinophils 6.0 % [facility] ABS Neutrophils 1.55 K/cmm [facility] ABS Lymphs 1.20 K/cmm [facility] ABS Eosinophils 0.18 K/cmm [facility] RBC Morphology 1+ Anisocytosis [facility] Type of Diff: Manual [facility] Specimen Performing Organization Address [facility]/ZIP Code Phon e Number [facility] [address] [place] [address] SERVICES [facility] [address] [place] [address] (ABNORMAL) HEMAGRAM AND DIFFERENTIAL (07/04/2008 5:05 EDT) WBC 2.42 (L) 4.5 - 13.5 [facility] K/cmm LAB RBC 2.93 (L) 4.00 - 6.20 [facility] M/cmm LAB Hemoglobin 9.3 (L) 11.5 - 15.5 [facility] gm/dl LAB HCT 26.7 (L) 35.0 - 45.0 % [facility] MCV 91 77 - 95 fl [facility] MCH 31.9 pg [facility] MCHC 34.9 gm/dl [facility] PLT 146 (L) 156 - 312 [facility] K/cmm LAB RDW-CV 17.2 % [facility] Neutrophils 58.0 % [facility] Lymphocytes 37.0 % [facility] Eosinophils 3.0 % [facility] Basophils 2.0 % [facility] ABS Neutrophils 1.40 K/cmm [facility] ABS Lymphs 0.90 K/cmm [facility] ABS Eosinophils 0.07 K/cmm [facility] ABS Basophils 0.05 K/cmm [facility] RBC Morphology 1+ Anisocytosis [facility] Type of Diff: Manual [facility] Comment Reviewed by Dr. [facility] Iglesias [facility] Specimen Performing Organization Address City/State/ZIP Code Phon e Number [facility] [address] [place] [address] SERVICES [facility] [address] [place] [address] (ABNORMAL) HEMAGRAM AND DIFFERENTIAL (07/01/2008 5:05 EDT) WBC 3.39 (L) 4.5 - 13.5 [facility] K/cmm RBC 2.93 (L) 4.00 - 6.20 [facility] M/cmm Hemoglobin 9.4 (L) 11.5 - 15.5 [facility] gm/dl HCT 26.8 (L) 35.0 - 45.0 % [facility] MCV 91 77 - 95 fl [facility] MCH 32.0 pg [facility] MCHC 35.0 gm/dl [facility] PLT 143 (L) 156 - 312 K/cmm [facility] RDW-CV 17.4 % [facility] Neutrophils 42.0 % [facility] Lymphocytes 44.0 % [facility] Monocytes 7.0 % [facility] Eosinophils 7.0 % [facility] ABS Neutrophils 1.42 K/cmm [facility] ABS Lymphs 1.49 K/cmm [facility] ABS Monocytes 0.24 K/cmm [facility] ABS Eosinophils 0.24 K/cmm [facility] RBC Morphology 1+ Anisocytosis [facility] 1+ Microcytes 1+ Macrocytes 1+ Ovalocytes WBC Morphology 1+ Smudge cells [facility] Type of Diff: Manual [facility] Specimen Performing Organization Address City/[facility] Phon e Number [facility] [address] [place] [address] SERVICES [facility] [address] [place] [address] (ABNORMAL) HEMAGRAM AND DIFFERENTIAL (06/29/2008 5:00 EDT) Pathologist Sig nature WBC 6.89 4.5 - 13.5 K/cmm [facility] RBC 3.14 (L) 4.00 - 6.20 M/cmm [facility] Hemoglobin 10.3 (L) 11.5 - 15.5 gm/dl [facility] HCT 29.2 (L) 35.0 - 45.0 % [facility] MCV 93 77 - 95 fl [facility] MCH 32.8 pg [facility] MCHC 35.2 gm/dl [facility] PLT 191 156 - 312 K/cmm [facility] RDW-CV 17.5 % [facility] Neutrophils 61.2 % [facility] Lymphocytes 21.3 % [facility] Monocytes 15.8 % [facility] Eosinophils 1.2 % [facility] Basophils 0.5 % [facility] ABS Neutrophils 4.21 K/cmm [facility] ABS Lymphs 1.47 K/cmm [facility] ABS Monocytes 1.09 K/cmm [facility] ABS Eosinophils 0.08 K/cmm [facility] ABS Basophils 0.03 K/cmm [facility] Type of Diff: Automated [facility] Specimen Performing Organization Address [facility] Code Phon e Number [facility] [address] [place] [address] SERVICES [facility] [address] [place] [address] CSF CELL COUNT (06/28/2008 10:50 EDT) RBC, CSF 0 /cmm [facility] Nucleated Cells 0 0 - 10 /cmm [facility] Total Vol. 5.5 ml [facility] Tube Cntd. 2 [facility] Total Vol. 3.5 ml [facility] Comment Clear and Colorless [facility] Specimen Performing Organization Address City/[facility]/ZIP Code Phon e Number [facility] [address] [place] [address] SERVICES [facility] [address] [place] [address] TOTAL PROTEIN, CSF (06/28/2008 10:50 EDT) Pathologist Sig nature Total Protein, CSF 16 mg/dl [facility] Specimen Performing Organization Address City/[facility]/ZIP Code Phon e Number [facility] [address] [place] [address] SERVICES [facility] [address] [place] [address] GLUCOSE CSF (06/28/2008 10:50 EDT) Pathologist Sig nature Glucose, CSF 53 mg/dl [facility] Comment: Ref Range=60-80% of plasma glucose result Specimen Performing Organization Address [facility]/ZIP [facility] Phon e Number [facility] [address] [place] [address] SERVICES [facility] [address] [place] [address] CHEST PA AND LATERAL (06/27/2008 13:50 EDT) Anatomical Region Laterality Modality Other Specimen Narrative [facility] - 04/23/2009 14 :39 EDT 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 Catheter still in place withou t change. No enlargement of the heart or mediastinum seen. Minimal p eribronchial cuffing is still present at which improved from prior exa m. 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 Catheter still in place withou t change. No enlargement of the heart or mediastinum seen. Minimal p eribronchial cuffing is still present at which improved from prior exa m. Performing Organization Address [facility] Phon e Number [facility] [address] [facility] [place] [address] [facility] [address] [place], [place] [address] TOTAL PROTEIN (06/27/2008 12:30 EDT) Pathologist Sig nature Total Protein 6.8 5.9 - 7.8 g/dl [facility] Specimen Performing Organization Address [facility] Phon e Number [facility] [address] [place] [address] SERVICES [facility] [address] [place] [address] (ABNORMAL) GLUCOSE, SERUM (06/27/2008 12:30 EDT) Pathologist Sig nature Glucose, Serum 496 (H) 70 - 100 mg/dl [facility] Specimen Performing Organization Address [facility] Phon e Number [facility] [address] [place] [address] SERVICES [facility] [address] [place] [address] PHOSPHORUS (06/27/2008 12:30 EDT) Pathologist Sig nature Phosphorus 4.5 4.1 - 5.4 mg/dl [facility] Specimen Performing Organization Address [facility] Phon e Number [facility] [address] [place] [address] SERVICES [facility] [address] [place] [address] (ABNORMAL) MAGNESIUM (06/27/2008 12:30 EDT) Pathologist Sig nature Magnesium 1.6 (L) 1.7 - 2.8 mg/dl [facility] Specimen Performing Organization Address [facility]/ZIP Code Phon e Number [facility] [address] [place] [address] SERVICES [facility] [address] [place] [address] CREATININE (06/27/2008 12:30 EDT) Pathologist Sig nature Creatinine 0.40 0.1 - 0.7 mg/dl [facility] GFR, Calculated Age <18 ml/min/1.73m2 [facility] Specimen Performing Organization Address City/[facility]/ZIP Code Phon e Number [facility] [address] [place] [address] SERVICES [facility] [address] [place] [address] BUN (06/27/2008 12:30 EDT) Pathologist Sig nature BUN 8 7 - 18 mg/dl [facility] Specimen Performing Organization Address [facility]/ZIP Code Phon e Number [facility] [address] [place] [address] SERVICES [facility] [address] [place] [address] TOTAL & DIRECT BILIRUBIN (06/27/2008 12:30 EDT) Pathologist Sig nature Conjugated Bilirubin 0.0 0.0 - 0.3 mg/dl [facility] B Unconjugated Bilirubin 0.4 0.1 - 1.1 mg/dl [facility] Bilirubin, Total <0.5 0.0 - 1.4 mg/dl [facility] Specimen Performing Organization Address [facility]/ZIP Code Phon e Number [facility] [address] [place] [address] SERVICES [facility] [address] [place] [address] AST (06/27/2008 12:30 EDT) Pathologist Sig nature AST 31 23 - 58 U/L [facility] Specimen Performing Organization Address City/[facility]/ZIP Code Phon e Number [facility] [address] [place] [address] SERVICES [facility] [address], [place] [address] ALT (06/27/2008 12:30 EDT) Pathologist Sig nature ALT 12 10 - 25 U/L [facility] Specimen Performing Organization Address City/[facility]/ZIP Code Phon e Number [facility] [address] [place] [address] SERVICES [facility] [address] [place] [address] (ABNORMAL) ELECTROLYTES (06/27/2008 12:30 EDT) Pathologist Sig nature Sodium 130 (L) 136 - 145 mEq/L [facility] Potassium 3.9 3.6 - 5.2 mEq/L [facility] Chloride 91 (L) 96 - 110 mEq/L [facility] CO2 22 (L) 24 - 32 mEq/L [facility] Specimen Performing Organization Address [facility] Phon e Number [facility] [address] [place] [address] SERVICES [facility] [address] [place] [address] (ABNORMAL) HEMAGRAM AND DIFFERENTIAL (06/27/2008 6:50 EDT) WBC 6.51 4.5 - 13.5 [facility] K/cmm RBC 3.22 (L) 4.00 - 6.20 [facility] M/cmm Hemoglobin 10.5 (L) 11.5 - 15.5 [facility] gm/dl HCT 29.4 (L) 35.0 - 45.0 % [facility] MCV 92 77 - 95 fl [facility] MCH 32.6 pg [facility] MCHC 35.6 gm/dl [facility] PLT 216 156 - 312 K/cmm [facility] RDW-CV 17.0 % [facility] Neutrophils 48.0 % [facility] Lymphocytes 33.0 % [facility] Monocytes 17.0 % [facility] Myelocytes 2.0 % [facility] ABS Neutrophils 3.12 K/cmm [facility] ABS Lymphs 2.15 K/cmm [facility] ABS Monocytes 1.11 K/cmm [facility] ABS Myelocytes 0.13 K/cmm [facility] RBC Morphology 1+ Anisocytosis [facility] Type of Diff: Manual [facility] Specimen Performing Organization Address [facility] Code Phon e Number [facility] [address] [place] [address] SERVICES [facility] [address] [place] [address] (ABNORMAL) HEMAGRAM AND DIFFERENTIAL (06/23/2008 12:00 EDT) WBC 16.73 (H) 4.5 - 13.5 [facility] K/cmm LAB RBC 3.28 (L) 4.00 - 6.20 [facility] M/cmm LAB Hemoglobin 10.8 (L) 11.5 - 15.5 [facility] gm/dl LAB HCT 30.2 (L) 35.0 - 45.0 % [facility] MCV 92 77 - 95 fl [facility] MCH 33.0 pg [facility] MCHC 35.9 gm/dl [facility] PLT 295 156 - 312 [facility] K/cmm LAB RDW-CV 18.0 % [facility] Neutrophils 66.0 % [facility] Lymphocytes 20.0 % [facility] Monocytes 13.0 % [facility] Basophils 1.0 % [facility] ABS Neutrophils 11.04 K/cmm [facility] ABS Lymphs 3.35 K/cmm [facility] ABS Monocytes 2.17 K/cmm [facility] ABS Basophils 0.17 K/cmm [facility] RBC Morphology 1+ Anisocytosis [facility] 1+ Poikilocytosis LAB 1+ Microcytes WBC Morphology Pierson seen on scan [facility] 1+ Smudge cells LAB Type of Diff: Manual [facility] Comment Reviewed by Dr. 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 There is no evidence of pleural disease. The cardiac silhouette and pulmonary vascularity are normal. The right jugula r central catheter tip overlies the mid SVC. Impression: 1. 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 There is no evidence of pleural disease. The cardiac silhouette and pulmonary vascularity are normal. The right jugula r central catheter tip overlies the mid SVC. Impression: 1. Findings consistent with bibasilar pn eumonia Performing Organization Address City/State/ZIP Code Phon e Number [facility] [address] [facility] [place] [address] [facility] [address] [place], [place] [address] (ABNORMAL) HEMAGRAM AND DIFFERENTIAL (06/20/2008 12:00 EDT) WBC 15.11 (H) 4.5 - 13.5 [facility] K/cmm RBC 3.23 (L) 4.00 - 6.20 [facility] M/cmm Hemoglobin 10.7 (L) 11.5 - 15.5 [facility] gm/dl HCT 29.9 (L) 35.0 - 45.0 % [facility] MCV 93 77 - 95 fl [facility] MCH 33.1 pg [facility] MCHC 35.8 gm/dl [facility] PLT 304 156 - 312 [facility] K/cmm RDW-CV 18.1 % [facility] Neutrophils 74.0 % [facility] Lymphocytes 17.0 % [facility] Monocytes 8.0 % [facility] Myelocytes 1.0 % [facility] ABS Neutrophils 11.18 K/cmm [facility] ABS Lymphs 2.57 K/cmm [facility] ABS Monocytes 1.21 K/cmm [facility] ABS Myelocytes 0.15 K/cmm [facility] RBC Morphology 1+ Macrocytes [facility] 1+ Anisocytosis 1+ Poikilocytosis 1+ Polychromasia Type of Diff: Manual [facility] Specimen Performing Organization Address City/State/ZIP Code Phon e Number [facility] [address] [place] [address] SERVICES [facility] [address] [place] [address] PROCEDURE REPORTS - SCANNED (06/20/2008 9:57 EDT) Narrative 06/20/2008 9:57 EDT BRONCHOSCOPY PROCEDURE REPORT SERVICE DATE: ??06/20/2008 ATTENDING BRONCHOSCOPIST: Minal Olivera MD CRANBERRY SORTER: ??Bean Garcia MD REFERRING PHYSICIAN: ??Sarita Dai MD PROCEDURE Flexible bronchoscopy with bronchoalveol ar lavage. ANESTHESIA Intravenous propofol. PREPROCEDURE DIAGNOSIS Immunocompromised host, rule out infecti on. POSTPROCEDURE DIAGNOSIS Immunocompromised host, rule out infecti on. 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 ??He has had no fever during this time and does not have other constitutional symptoms. NARRATIVE A 3.8-mm flexible bronchoscope was passe d through a #2.5 laryngeal mask airway. ??The larynx was normal in appearance. ??A total of 1 mL of 2% lidocaine was instil led at the cords.The subglottic space was free of lesions. ?? The trachea had normal rings, but purulent appearing secretions were present along the course of the trachea. ??They were seen to emanate from both the right and the left mainstem bronchus. ?? A total of 2 mL of 1%lidocaine was instilled at the heladio. ??The lower bronchial branching pattern was within normal limi ts. ??The airways were not friable or edematous. ??Dense white-yell ow purulent secretions were seen in the right upper lobe, the r ight lower lobe, the superior segment of the right lower lobe , the lingula, the left upper lobe, and the left lower lobe. ??B AL was performed with 15 mL aliquots of nonbacteriostatic normal saline in the right upper lobe, the superior segment of the right lower lobe, the basilar segment of the right lower lobe, the sierra gula, and the left lower lobe. ??A total of 75 mL of saline was i nstilled with a return of nearly 35 mL of purulent secretion with mucous plugs. ??The patient tolerated the procedure well. FINDINGS Diffuse purulent secretions, indicative of infection. COMPLICATIONS None. SPECIMENS To microbiology for bacterial, fungal, A FB, and CMV cultures; to cytopathology for silver stain, hemoside rin and lipid laden macrophage indices, and cell differentia l; fungal stains were also ordered. Signed by Minal Olivera MD 07/01/2008 22:12 MD [facility] [phone] D: ?? - Minal Olivera MD T: ??06/22/2008 ??8:09 A - FE Job ID: ??[id number] Document ID: ??[id number] cc: ??MD Bean Macias MD Thomas Lahiri, MD Procedure Note Minal Olivera MD - 06/20/2008 0:00 EDT BRONCHOSCOPY PROCEDURE REPORT SERVICE DATE: 06/20/2008 ATTENDING BRONCHOSCOPIST: Minal Olivera MD CRANBERRY SORTER: Bean Garcia MD REFERRING PHYSICIAN: Sarita Dai MD PROCEDURE Flexible bronchoscopy with bronchoalveol ar lavage. ANESTHESIA Intravenous propofol. PREPROCEDURE DIAGNOSIS Immunocompromised host, rule out infecti on. POSTPROCEDURE DIAGNOSIS Immunocompromised host, rule out infecti on. INDICATIONS Jaswinder is a 8-year-old boy with acute m yelocytic leukemia, who has had a two week history of a worsening productive cough and increasing radiographic findings on chest CT. He has had no fever during this time and does not have other constitutional s ymptoms. NARRATIVE A 3.8-mm flexible bronchoscope was passe d through a #2.5 laryngeal mask airway. The larynx was normal in appearance. A total of 1 mL of 2% lidocaine was instilled at the cords.The subglottic space was free of lesions. The trachea had normal rings, b ut purulent appearing secretions were present along the course of the trachea. They were seen to emanate from both the right and the left mainstem bronchus. A total of 2 mL of 1%lidocaine was instilled at the heladio. The lower bronchial branching pattern was within normal limits. The airways were not friable or edematous. Dense white-yellow purulent secretions were seen in the right upper lobe, the right lower lobe, the lazcano perior segment of the right lower lobe, the lingula, the left upper lobe, and the left lower lobe. BAL was performed with 15 mL aliquots of nonbacteriostatic normal saline in the right upper lobe, the superior segment o f the right lower lobe, the basilar segment of the right lower lobe, the lingula, and the left lower lobe. A total of 75 mL of saline was instilled with a return of nearly 35 mL of purulent secretion with mucous plu gs. The patient tolerated the procedure well. FINDINGS Diffuse purulent secretions, indicative of infection. COMPLICATIONS None. SPECIMENS To microbiology for bacterial, fungal, A FB, and CMV cultures; to cytopathology for silver stain, hemosiderin and lipid laden macrophage indices, and cell differential; fungal stains were also ordered. Signed by Minal Olivera MD 07/01/2008 22:12 ERIC [facility] [phone] Lahiri, MD MD [facility] [phone] D: - Minal Olivera MD Bill - FE Job ID: [id number] Document ID: [id number] cc: MD Bean Macias MD Thomas Lahiri, MD VIRUS CULTURE, OTHER (06/20/2008 9:47 EDT) Specimen Bronchoalveolar Lavage [facility] Description LAB Result No virus recovered [facility] Report Status Final [facility] [id number] LAB Specimen Performing Organization Address City/[facility]/ZIP Code Phon e Number [facility] [address] [place] [address] SERVICES [facility] [address] [place] [address] BACTERIAL CULTURE/SMEAR, RESPIRATORY (06/20/2008 9:47 EDT) Specimen Bronchoalveolar Lavage [facility] Description LAB Gram Smear Result Many [facility] Polys LAB No bacteria seen Alveolar macrophages present Result Less than 10,000 CFU/ml [facility] Gram positive cocci LAB Report Status Final [facility] [id number] LAB Specimen Performing Organization Address [facility] Code Phon e Number [facility] [address] [place] [address] SERVICES [facility] [address] [place] [address] AFB CULTURE/SMEAR, RESPIRATORY (06/20/2008 9:47 EDT) Specimen Bronchoalveolar Lavage [facility] Description LAB Acid Fast No acid-fast bacilli [facility] seen LAB Result No acid-fast bacilli [facility] isolated LAB Report Status Final [facility] [id number] LAB Specimen Performing Organization Address [facility] Code Phon e Number [facility] [address] [place] [address] SERVICES [facility] [address] [place] [address] FUNGUS CULTURE/SMEAR, RESPIRATORY (06/20/2008 9:47 EDT) Specimen Bronchoalveolar Lavage [facility] Fungal Smear No fungi seen [facility] Result MYCELIA STERILIA (Sterile my celium, no diagnostic reproductive structures present). [facility] This mould is a saprophytic fungus. It has been reported rarely as a cause of infection. Its LAB etiologic role is not certai n, but infection is morelikely if the patient's host defenses are compromised. We suggest evaluationof clinical data. Repeated isolation of a jose us increases the likelihood that it is etiologically related. Consider reculturing the spe cimen. Consult the pathologist if there are further questions. Report Status Final [facility] [id number] LAB Specimen Performing Organization Address City/[facility]/ZIP Code Phon e Number [facility] [address] [place] [address] SERVICES [facility] [address] [place] [address] MISCELLANEOUS TEST, OTHER (06/20/2008 9:00 EDT) Test Name FCPDNA [facility] Result NOT DETECTED [facility] Reference Ranges: NOT DETECTED [facility] Ref Lab [facility] Laboratory, [place], [place] Specimen Performing Organization Address City/[facility] Code Phon e Number [facility] [address] [place] [address] SERVICES [facility] [address] [place] [address] MISCELLANEOUS TEST, OTHER (06/20/2008 9:00 EDT) Test Name FMPDNA [facility] Result NOT DETECTED [facility] Reference Ranges: NOT DETECTED [facility] Ref Lab [facility] Laboratory, [place], [place] Specimen Performing Organization Address City/[facility]/ZIP Code Phon e Number [facility] [address] [place] [address] SERVICES [facility] [address] [place] [address] DIFFERENTIAL, LAVAGE FLUID (06/20/2008 9:00 EDT) Pathologist [facility] Neutrophils, Fluid 94 % [facility] Lymphocytes, Fluid 2 % [facility] [place]/Macro, Fluid 4 % [facility] Note Cell count not [facility] available, consult Pathologist Specimen Performing Organization Address City/[facility]/ZIP Code Phon e Number [facility] [address] [place] [address] SERVICES [facility] [address] [place] [address] documented in this encounter Visit Diagnoses Not on filedocumented in this encounter
--- OUTSIDE RECORDS SUMMARY | 2022-05-10 08:34 | XMS_ITS | Encounter Summary ---
:2002 [place] [address] Care Team Providers Name Role Phone Bernard Newman MD Primary Care Provider Reason for Visit Reason Onset Date Comments Medication Refill 11/10/2020 Encounter Details Date Type Department Care Team Description 11/10/2020 Refill Pediatric Endocrinology at [facility] Bala chan MD Hypogonadism male [facility] [place] [address] ENDOCRINOLOGY [phone] [place], [place] [address] (Wo rk) Social History Tobacco Use Types Packs/Day Years Used Date Never Smoker Smokeless Tobacco: Never Used Comments: no one smokes Sex Assigned at Date Recorded Male 10/09/2021 8:40 AM EST documented as of this encounter Plan of Treatment Not on filedocumented as of this encounter Visit Diagnoses Diagnosis Hypogonadism male Other testicular hypofunction documented in this encounter Care Teams Computer Mechanic Relationship Specialty Start Date End Date Bernard Newman MD PCP - General Pediatrics 07/27/[address] [place] [address] [address] [place] [id number] documented as of this encounter
--- OUTSIDE RECORDS SUMMARY | 2022-05-10 08:34 | XMS_ITS | Encounter Summary ---
:2002 Author Organization [facility] [place] [address] Care Team Providers Name Role Phone Bernard Newman MD Primary Care Provider Encounter Details Date Type Department Care Team Description 02/28/2022 Telephone Endocrinology at [facility] Oliva Ann MD [facility] [place] [address] ENDOCRINOLOGY DEPT [phone] [place], [place] [address] (Wo rk) Social History Tobacco Use Types Packs/Day Years Used Date Never Smoker Smokeless Tobacco: Never Used Comments: no one smokes Sex Assigned at Date Recorded Male 10/09/2021 8:40 AM EST documented as of this encounter Miscellaneous Notes Telephone Encounter - Oliva Ann MD - 02/28/2022 1:34 PM EDT Today I called and spoke with Geronimo's mother, Joan, regarding his most recent lab results: 02/07/22 TSH: 1.47 FT4: 0.73 Free Test: 17.1 (5.36 - 21.2) Total Test: 388 (240 - 950) Geronimo is using 1 pump daily since October 18 of last year. I was happy to see that the free testosterone level, which is the biologically active form of the hormone, is within the higher end of the normal range. According to Geronimo's mom, patient claims he is doing well and denies any acute symptom or changes. Today I recommend stopping the testosterone supplementation and repeating his levels in 3 months to ensure the free testosterone remains normal. In regards to the thyroid, his TSH is normal but the free T4 levels are marginally low, which can induce fatigue and low energy levels. I offered a trial of low dose Levothyroxine to see if he would feel even better when his levels are normal. Joan said she was going to discuss this with Geronimo and have him contact me for an answer. I also left a voicemail at Geronimo's phone asking him to call me back so I can discuss this plan with him as well. Geronimo had previously given me consent to talk about his treatment with his mother Joan. Case d/w Dr. Zamora documented in this encounter Plan of Treatment Scheduled Orders Name Type Priority Associated Diagnoses Order S chedule Testosterone, total and Lab Routine Hypogonadism in m marlo Expected: 05/30/2022, free Expires: 2022 Sex Hormone Binding Lab Routine Hypogonadism in male Expected: 05/30/2022, Globulin Expires: 2022 documented as of this encounter Visit Diagnoses Diagnosis Hypogonadism in male documented in this encounter Care Teams Quality Process Lead Relationship Specialty Start Date End Date Bernard Newman MD PCP - General Pediatrics 07/27/18 [address] [place] [address] documented as of this encounter
--- OUTSIDE RECORDS SUMMARY | 2022-05-10 08:34 | XMS_ITS | Clinical Summary ---
:2002 Author Organization [facility] [place] [address] Care Team Providers Name Role Phone Bernard Newman MD Primary Care Provider Allergies Active Allergy Reactions Severity Noted Date Comments Amphotericin B Liposome Anaphylaxis High 09/27/2010 hypo tension Voriconazole Rash, Hives High 09/27/2008 Medications Medication Sig Dispensed Refills Start Date End Date Status Needle, Disp, 25 G Use for testosterone 12 each 3 04/24/2020 Active 25 gauge x 5/8 injections NeedleIndications: Hypogonadism male buPROPion XL Take by mouth. 0 02/28/2021 A ctive (Wellbutrin XL) 150 mg Tablet Extended Release 24 hr ibuprofen (Advil) Take 200 mg by mouth 0 Active 200 mg Tablet Every 6 hours. testosterone Apply 40.5 mg 150 g 2 10/17/2021 Ac tive (ANDROGEL) 20.25 topically daily. ( 2 mg/1.25 gram (1.62 pumps daily) %) Gel in Metered-dose PumpIndications: Hypogonadism male Active Problems Problem Noted Date Low serum T4 level 10/11/2021 Hyposmia 08/02/2018 Overview: Olfactory testing revealed moderate hypo smia in 2018 Last Assessment & Plan: We administered the Sensonix olfactory t esting today and Jaswinder could identify only 31 of the 40 odors. This displaced him in the moderate hyposmia range. 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 +/- Hypogonadism male (low total testosterone but norm al free 08/02/2018 testosterone) Overview: Normal puberty followed by a period of e rectile dysfunction. Borderline testosterone values documented in 2018. No elevation of gonadotropins. Moderate hyposmia detected in 2018. Last Assessment & Plan: Geronimo is clearly doing well with testoste nereyda replacement and I think he is an excellent candidate for transdermal therapy. I provided a prescription for androgen gel 1.62% with a starting dose of 2 pump s daily. We will obtain a testosterone w as he is stabilized on that treatment form. I placed a referral to adult endocrinology for follow up in the fall. Encounters Date Type Specialty Care Team Description 02/28/2022 Telephone Endocrinology Oliva Ann MD 02/18/2022 Telephone Endocrinology Jon Reddy RN from Last 3 Months Family History Medical History Relation Comments Hypertension Brother Thyroid Disease Father Substance Use Disorder Maternal Grandfather Cancer Maternal Grandmother Lung, smoker Diabetes Mother Gestational Thyroid Disease Mother Hypothyroidism Coronary Artery Disease Paternal Grandfather Myocardial Infarction Paternal Grandfather Anxiety Disorder Paternal Grandmother Dementia Paternal Grandmother Relation Status Comments Brother Alive Father Alive Maternal Grandfather Maternal Grandmother Mother Alive Paternal Grandfather Paternal Grandmother Alive Sister Alive Social History Tobacco Use Types Packs/Day Years Used Date Never Smoker Smokeless Tobacco: Never Used Comments: no one smokes Sex Assigned at Date Recorded Male 10/09/2021 8:40 AM EST Last Filed Vital Signs Vital Sign Reading Time Taken Comments Blood Pressure 131/63 10/09/2021 10:26 AM EST Pulse 77 10/09/2021 10:26 AM EST Temperature 37.3 ??C (99.1 ??F) 10/09/2021 10:26 AM EST Respiratory Rate - - Oxygen Saturation 100% 10/09/2021 10:26 AM EST Inhaled Oxygen Concentration - - Weight 90.7 kg (200 lb) 10/09/2021 10:26 AM EST Height 184.9 cm (6' 0.8) 10/09/2021 10:26 AM EST Body Mass Index 26.54 10/09/2021 10:26 AM EST Plan of Treatment Health Maintenance Due Date Last Done Comments Covid-19 Vaccine (#1) 2007 HPV vaccine (1 - Male 2-dose series) 2013 HIV screen 2020 Hepatitis C Screening 2020 Tdap adult 2021 Tetanus vaccine 2021 Influenza (Flu) vaccine (1 of 1 - Influenza standard 07/11/2021 series) Procedures Procedure Name Priority Date/Time Associated Diagnosis Comme nts LAB SCAN 02/20/2022 12:00 AM Results for this EDT procedure are i n the results section . from Last 3 Months Results SCAN DOC: LAB (02/20/2022 12:00 AM EDT) Narrative This result has an attachment that is no t available. Unknown MEDIA MGR SCAN EXT ORDR/RSLT from Last 3 Months Insurance Payer Benefit Plan / Subscriber ID Effective Dates Phone Addre ss Type Group HEALTH PLANS HEALTH PLANS [id number] [facility] [phone] [id number] [place] [address] Care Teams Edi Specialist Relationship Specialty Start Date End Date Bernard Newman MD PCP - General Pediatrics 07/27/18 [address] [place], [place] [address]
--- OUTSIDE RECORDS SUMMARY | 2022-05-10 08:34 | XMS_ITS | Encounter Summary ---
:2002 [place] [address] Care Team Providers Name Role Phone Bernard Newman MD Primary Care Provider Encounter Details Date Type Department Care Team Description 10/06/2018 Orders Only Pediatric Endocrinology Bala Martinez , [place] [phone] PEDIATRIC ENDOCRINOLOGY [place], [place] [address] (Wo rk) Social History Tobacco Use Types Packs/Day Years Used Date Never Smoker Smokeless Tobacco: Never Used Comments: no one smokes Sex Assigned at Date Recorded Male 10/09/2021 8:40 AM EST documented as of this encounter Progress Notes Bala Martinez MD - 10/06/2018 5:41 PM EST Trough value to be drawn locally after converting to weekly injections. documented in this encounter Plan of Treatment Not on filedocumented as of this encounter Results (ABNORMAL) Testosterone, total (10/09/2018 7:05 AM EST) P athologist Signature Testo Total 296 85 - 1,200 EXTERNAL LAB (External ng/dL Lab) Comment: Red IV; 300-950 for Red V Specimen (Source) Anatomical Collection Method Collection Time Re ceived Time Location / / Volume Laterality Blood specimen 10/09/2018 7:05 AM (specimen) EST Narrative This result has an attachment that is no t available. Bala Martinez MD CHEMISTRY ORDERABLES Performing Organization Address City/State/ZIP Code Phon e Number EXTERNAL LAB documented in this encounter Visit Diagnoses Diagnosis Hypogonadism male Other testicular hypofunction documented in this encounter Care Teams Head Nurse Relationship Specialty Start Date End Date Bernard Newman MD PCP - General Pediatrics 07/27/18 [address] [place] [address] documented as of this encounter
--- OUTSIDE RECORDS SUMMARY | 2022-05-10 08:34 | XMS_ITS | Encounter Summary ---
:2002 [place] [address] Care Team Providers Name Role Phone Bernard Newman MD Primary Care Provider Encounter Details Date Type Department Care Team Description 11/16/2018 Office Visit Pediatric Endocrinology Bala Martinez , [place]ogonad[place] [address] PEDIATRIC ENDOCRINOLOGY [place], [place] [address] Social History Tobacco Use Types Packs/Day Years Used Date Never Smoker Smokeless Tobacco: Never Used Comments: no one smokes Sex Assigned at Date Recorded Male 10/09/2021 8:40 AM EST documented as of this encounter Last Filed Vital Signs Vital Sign Reading Time Taken Comments Blood Pressure 116/73 11/16/2018 9:51 AM EST Pulse 68 11/16/2018 9:51 AM EST Temperature - - Respiratory Rate - - Oxygen Saturation - - Inhaled Oxygen Concentration - - Weight 87 kg (191 lb 12.8 oz) 11/16/2018 9:51 AM EST Height 184.1 cm (6' 0.48) 11/16/2018 9:51 AM EST Body Mass Index 25.67 11/16/2018 9:51 AM EST Body Mass Index Percentile 89.66 % 11/16/2018 9:51 AM ES T Growth Chart: CDC (Boys, 2-20 Years) documented in this encounter Progress Notes Bala Martinez MD - 11/16/2018 10:00 AM EST Subjective: Patient ID: Jaswinder Ross is a 18 y.o. male. JAZMINE San is here with his mother for follow up of hypogonadism and hyposmia that was diagnosed in the fall of 2017. 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 He went through a normal puberty and recalls normal sexual function in seventh grade.In eighth grade he noticed that it was more difficult to sustain erections. In ninth grade he noted decreased spontaneous erections and difficulty maintaining erections and raised the concern with Dr. Newman. 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 He had a very good response to testosterone treatment including improvements in development of directions and the ability to ejaculate. While taking the once monthly testosterone injections he did notice some variability in the effects between doses. We recommended a weekly regimen of subcutaneous testosterone which he has found to be working much better. He said no difficulty with the injections which are administered by his mother. There was some concern last week that he might be having an allergic reaction because of a local rash but there is been no recurrence. His mother has noted that he is much more weber. He has not noticed a decrease in libido. He has become more muscular over the past 4months and his voice is deeper. Other than the ALL, his general health has been excellent. He is well adjusted and doing well in 10th grade participating in sports. Social History: He lives at home with both parents. He has an older sister and older brother who no longer live in the household. He is in 10th grade at [employer] and does very well academically, passing all subjects. He is participating in football and lacrosse. His father is a master scheduler and his mother is a nurse at [employer]. 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 Past Medical History, Surgical History, and Family History were reviewed and updated in the electronic record. Significant for childhood ALL now in remission. Review of Systems Constitutional: Negative. HENT: Negative. Eyes: Negative. Respiratory: Negative. Cardiovascular: Negative. Gastrointestinal: Negative. Endocrine: Increased thirst at times, but not consistent. Genitourinary: Negative. Musculoskeletal: Negative. Skin: Negative. Neurological: Negative. Psychiatric/Behavioral: Negative. Objective: Physical Exam Constitutional: He appears well-developed and well-nourished. No distress. HENT: Mouth/Throat: Oropharynx is clear and moist. Eyes: Pupils are equal, round, and reactive to light. No scleral icterus. Neck: No thyromegaly present. Cardiovascular: Normal rate and regular rhythm. No murmur heard. Pulmonary/Chest: Effort normal. He has no wheezes. Abdominal: Soft. He exhibits no mass. There is no tenderness. Genitourinary: Genitourinary Comments: Red V pubic hair. The phallus is normal adult. The testicles measured 12 mL in volume bilaterally, which is diminished from his last exam.. Musculoskeletal: He exhibits no edema. Lymphadenopathy: He has no cervical adenopathy. Neurological: He is alert. Skin: Skin is warm. No rash noted. Psychiatric: He has a normal mood and affect. His behavior is normal. BP 116/73 Pulse 68 Ht 184.1 cm (6' 0.48) Wt 87 kg (191 lb 12.8 oz) BMI 25.67 kg/m?? Assessment and Plan: Hypogonadism male Jaswinder has had a very good response to therapy. Other than moodiness, he is not exhibiting any negative effects. As he matures he should be able to become more independent with the injections. He doesnot want to interrupt therapy in order to obtain a sperm sample (for storage), so we will defer thatfor now. I reassured them that testosterone treatment per se should not result in a permanent loss of the ability to form sperm, so it is quite likely that he could store sperm in the future. We also discussed that signs of inadequate treatment include loss of libido, inability to obtain or sustain erection, and loss of strength or endurance. I encouraged Jaswinder to contact me if any of those signs appear. documented in this encounter Miscellaneous Notes Assessment & Plan Note - Bala Martinez MD - 11/16/2018 11:33 AM EST Associated Problem(s): +/- Hypogonadism male (low total testosterone but normal free testosterone) Jaswinder has had a very good response to therapy. Other than moodiness, he is not exhibiting any negative effects. As he matures he should be able to become more independent with the injections. He doesnot want to interrupt therapy in order to obtain a sperm sample (for storage), so we will defer thatfor now. I reassured them that testosterone treatment per se should not result in a permanent loss of the ability to form sperm, so it is quite likely that he could store sperm in the future. We also discussed that signs of inadequate treatment include loss of libido, inability to obtain or sustain erection, and loss of strength or endurance. I encouraged Jaswinder to contact me if any of those signs appear. documented in this encounter Plan of Treatment Not on filedocumented as of this encounter Visit Diagnoses Diagnosis Hypogonadism male Other testicular hypofunction documented in this encounter Care Teams Homemaker Companion Relationship Specialty Start Date End Date Bernard Newman MD PCP - General Pediatrics 07/27/18 [address] [place] [address] documented as of this encounter
--- OUTSIDE RECORDS SUMMARY | 2022-05-10 08:34 | XMS_ITS | Encounter Summary ---
:2002 [place] [address] Care Team Providers Name Role Phone Bernard Newman MD Primary Care Provider Encounter Details Date Type Department Care Team Description 06/28/2021 Telephone Endocrinology at [facility] [place] [address] Social History Tobacco Use Types Packs/Day Years Used Date Never Smoker Smokeless Tobacco: Never Used Comments: no one smokes Sex Assigned at Date Recorded Male 10/09/2021 8:40 AM EST documented as of this encounter Plan of Treatment Not on filedocumented as of this encounter Visit Diagnoses Not on filedocumented in this encounter Care Teams Fly Frame Tender Relationship Specialty Start Date End Date Bernard Newman MD PCP - General Pediatrics 07/27/18 [address] [place], [place] [address] documented as of this encounter
--- OUTSIDE RECORDS SUMMARY | 2022-05-10 08:34 | XMS_ITS | Encounter Summary ---
:2002 Author Organization [facility] [place] [address] Care Team Providers Name Role Phone Bernard Newman MD Primary Care Provider Reason for Visit Reason Comments Medication Refill Encounter Details Date Type Department Care Team Description 03/06/2019 Refill Pediatric Endocrinology at [facility], [place]ia neves Hypogonadism male [facility] MD Ann [facility] [place] [address] PEDIATRIC [phone] ENDOCRINOLOGY [place], [place] [address] (Wo rk) Social History Tobacco Use Types Packs/Day Years Used Date Never Smoker Smokeless Tobacco: Never Used Comments: no one smokes Sex Assigned at Date Recorded Male 10/09/2021 8:40 AM EST documented as of this encounter Plan of Treatment Not on filedocumented as of this encounter Visit Diagnoses Diagnosis Hypogonadism male Other testicular hypofunction documented in this encounter Care Teams Pattern Changer And Repairer Relationship Specialty Start Date End Date Bernard Newman MD PCP - General Pediatrics 07/27/[address] [place] [address] [address] [place], [place] [id number] documented as of this encounter
--- OUTSIDE RECORDS SUMMARY | 2022-05-10 08:34 | XMS_ITS | Encounter Summary ---
:2002 [place] [address] Care Team Providers Name Role Phone Bernard Newman MD Primary Care Provider Reason for Visit Reason Onset Date Comments Medication Refill 08/26/2018 Encounter Details Date Type Department Care Team Description 08/26/2018 [facility] [place] [address] Social History Tobacco Use Types Packs/Day Years Used Date Never Smoker Smokeless Tobacco: Never Used Comments: no one smokes Sex Assigned at Date Recorded Male 10/09/2021 8:40 AM EST documented as of this encounter Plan of Treatment Not on filedocumented as of this encounter Visit Diagnoses Diagnosis Hypogonadism male Other testicular hypofunction documented in this encounter Care Teams Pediatric Neuropsychologist Relationship Specialty Start Date End Date Bernard Newman MD PCP - General Pediatrics 07/27/18 [address] [place], [place] [address] documented as of this encounter
--- OUTSIDE RECORDS SUMMARY | 2022-05-10 08:34 | XMS_ITS | Encounter Summary ---
:2002 Author Organization [facility] [place] [address] Care Team Providers Name Role Phone Bernard Newman MD Primary Care Provider Encounter Details Date Type Department Care Team Description 04/25/2021 External Results [facility] [place] [address] Social History Tobacco Use Types Packs/Day Years Used Date Never Smoker Smokeless Tobacco: Never Used Comments: no one smokes Sex Assigned at Date Recorded Male 10/09/2021 8:40 AM EST documented as of this encounter Plan of Treatment Not on filedocumented as of this encounter Procedures Procedure Name Priority Date/Time Associated Diagnosis Comme nts TESTOSTERONE, TOTAL Routine 04/10/2021 6:55 AM Re sults for this EDT procedure are i n the results section. documented in this encounter Results (ABNORMAL) Testosterone, total (04/10/2021 6:55 AM EDT) P athologist Signature Testo Total 468 300 - 950 EXTERNAL LAB (External ng/dL Lab) Comment: Red V ref range Specimen (Source) Anatomical Collection Method Collection Time Re ceived Time Location / / Volume Laterality Blood 04/10/2021 6:55 AM EDT Historical Provider CHEMISTRY ORDERABLES Performing Organization Address City/State/ZIP Code Phon e Number EXTERNAL LAB documented in this encounter Visit Diagnoses Not on filedocumented in this encounter Care Teams Boat Driver Relationship Specialty Start Date End Date Bernard Newman MD PCP - General Pediatrics 07/27/18 [address] [place] [address] documented as of this encounter
--- OUTSIDE RECORDS SUMMARY | 2022-05-10 08:34 | XMS_ITS | Encounter Summary ---
:2002 [place] [address] Care Team Providers Name Role Phone Bernard Newman MD Primary Care Provider Reason for Visit Reason Onset Date Comments Medication Refill 03/06/2019 Encounter Details Date Type Department Care Team Description 03/06/2019 Refill Pediatric Endocrinology at [facility], [place] [facility] Hypogonadism male [facility] [place] Ann [facility] [place] [address] PEDIATRIC [phone] ENDOCRINOLOGY [place], [place] [address] (Wo rk) Social History Tobacco Use Types Packs/Day Years Used Date Never Smoker Smokeless Tobacco: Never Used Comments: no one smokes Sex Assigned at Date Recorded Male 10/09/2021 8:40 AM EST documented as of this encounter Plan of Treatment Not on filedocumented as of this encounter Visit Diagnoses Diagnosis Hypogonadism male Other testicular hypofunction documented in this encounter Care Teams Pulley Worker Relationship Specialty Start Date End Date Bernard Newman MD PCP - General Pediatrics 07/27/[address] [place] [address] [address] [place], [place] [id number] documented as of this encounter
--- OUTSIDE RECORDS SUMMARY | 2022-05-10 08:34 | XMS_ITS | Encounter Summary ---
:2002 [place] [address] Care Team Providers Name Role Phone Bernard Newman MD Primary Care Provider Reason for Visit Reason Onset Date Comments Medication Refill 09/14/2018 Encounter Details Date Type Department Care Team Description 09/14/2018 [facility] [place] [address] Social History Tobacco Use Types Packs/Day Years Used Date Never Smoker Smokeless Tobacco: Never Used Comments: no one smokes Sex Assigned at Date Recorded Male 10/09/2021 8:40 AM EST documented as of this encounter Plan of Treatment Not on filedocumented as of this encounter Visit Diagnoses Diagnosis Hypogonadism male Other testicular hypofunction documented in this encounter Care Teams Pig Farm Manager Relationship Specialty Start Date End Date Bernard Newman MD PCP - General Pediatrics 07/27/18 [address] [place], [place] [id number] documented as of this encounter
--- OUTSIDE RECORDS SUMMARY | 2022-05-10 08:34 | XMS_ITS | Encounter Summary ---
:2002 Author Organization [facility] [address] Care Team Providers Name Role Phone Bernard Newman MD Primary Care Provider Reason for Visit Reason Onset Date Comments Medication Refill 10/16/2021 Encounter Details Date Type Department Care Team Description 10/16/2021 Refill Pediatric Endocrinology at [facility], Mariia neves Hypogonadism male [facility] [place] Ann [facility] [place] [address] PEDIATRIC [phone] ENDOCRINOLOGY [place], [place] [address] (Wo rk) Social History Tobacco Use Types Packs/Day Years Used Date Never Smoker Smokeless Tobacco: Never Used Comments: no one smokes Sex Assigned at Date Recorded Male 10/09/2021 8:40 AM EST documented as of this encounter Plan of Treatment Not on filedocumented as of this encounter Visit Diagnoses Diagnosis Hypogonadism male Other testicular hypofunction documented in this encounter Care Teams Aviation Electronics Technician Relationship Specialty Start Date End Date Bernard Newman MD PCP - General Pediatrics 07/27/[address] [place] [address] [address] [place], [place] [address] documented as of this encounter
--- OUTSIDE RECORDS SUMMARY | 2022-05-10 08:34 | XMS_ITS | Encounter Summary ---
:2000 [place] [address] Care Team Providers Name Role Phone Bernard Newman MD Primary Care Provider Reason for Visit Reason Comments Hypogonadism Encounter Details Date Type Department Care Team Description 12/13/2019 Office Visit Pediatric Endocrinology Bala Martinez , [place] [address] PEDIATRIC ENDOCRINOLOGY [place], [place] [address] Social History Tobacco Use Types Packs/Day Years Used Date Never Smoker Smokeless Tobacco: Never Used Comments: no one smokes Sex Assigned at Date Recorded Male 10/09/2021 8:40 AM EST documented as of this encounter Last Filed Vital Signs Vital Sign Reading Time Taken Comments Blood Pressure 128/72 12/13/2019 11:42 AM EST Pulse 69 12/13/2019 11:42 AM EST Temperature - - Respiratory Rate - - Oxygen Saturation - - Inhaled Oxygen Concentration - - Weight 75 kg (165 lb 5.5 oz) 12/13/2019 11:42 AM EST Height 183.9 cm (6' 0.4) 12/13/2019 11:42 AM EST Body Mass Index 22.18 12/13/2019 11:42 AM EST Body Mass Index Percentile 57.49 % 12/13/2019 11:[address] Growth Chart: CDC (Boys, 2-20 Years) documented in this encounter Progress Notes Bala Martinez MD - 12/13/2019 11:30 AM EST Subjective: Patient ID: Jaswinder Ross is a 19 y.o. male. JAZMINE San is here for follow up of hypogonadism and hyposmia that was diagnosed in the fall of 2017. His father remained in the waiting room. 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 He went through a normal puberty and recalls normal sexual function in seventh grade. In eighth grade he noticed that it was more difficult to sustain erections. In ninth grade he noted decreased spontaneous erections and difficulty maintaining erections and raised the concern with Dr. Newman. 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 He had a very good response to testosterone treatment including improvements in development of erections and the ability to ejaculate. While taking the once monthly testosterone injections he did notice some variability in the effects between doses, but the regimen of weekly subcutaneous testosterone is be working much better. Since his last visit in May he feels that things are going well. He is now taking responsibility for doing some of the injections. He has normal spontaneous erections. He can ejaculate normally and hehas had sexual intercourse with no difficulty. He has not had any adverse reactions to the testosterone injections. He still experiences some anxiety and stress related to school, but he reports that this has been his best school year ever! Other than the ALL, his general health has been excellent. Social History: He lives at home with both parents. He has an older sister and older brother who no longer live in the household. He is in 11th grade at [employer] and does very well academically, passing all subjects. He is participating in football and lacrosse. His father is a ase master mechanic and his mother is a nurse at [employer]. 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 Past Medical History, Surgical History, and Family History were reviewed and updated in the electronic record. Significant for childhood ALL now in remission. Review of Systems Constitutional: Negative. HENT: Negative. Eyes: Negative. Respiratory: Negative. Cardiovascular: Negative. Gastrointestinal: Negative. Endocrine: Increased thirst at times, but not consistent. Genitourinary: Negative. Musculoskeletal: Negative. Skin: Negative. Neurological: Negative. Psychiatric/Behavioral: Negative. Objective: Physical Exam Constitutional: General: He is not in acute distress. Appearance: He is well-developed. Eyes: General: No scleral icterus. Pupils: Pupils are equal, round, and reactive to light. Neck: Thyroid: No thyromegaly. Cardiovascular: Rate and Rhythm: Normal rate and regular rhythm. Heart sounds: No murmur. Pulmonary: Effort: Pulmonary effort is normal. Breath sounds: No wheezing. Abdominal: Palpations: Abdomen is soft. There is no mass. Tenderness: There is no abdominal tenderness. Genitourinary: Comments: Not examined today. Red 5 at last visit. Lymphadenopathy: Cervical: No cervical adenopathy. Skin: General: Skin is warm. Findings: No rash. Neurological: Mental Status: He is alert. Psychiatric: Behavior: Behavior normal. BP 128/72 Pulse 69 Ht 183.9 cm (6' 0.4) Wt 75 kg (165 lb 5.5 oz) BMI 22.18 kg/m?? Assessment and Plan: Hypogonadism male Jaswinder is pleased with his current regimen and is now become more independent in the administrationof testosterone. I recommended that he continue with the same dose and asked that he contact me if he develops any symptoms suggestive of inadequate testosterone. I will plan to see him again in clinicin 6 months. documented in this encounter Miscellaneous Notes Assessment & Plan Note - Bala Martinez MD - 12/18/2019 1:51 PM EST Associated Problem(s): +/- Hypogonadism male (low total testosterone but normal free testosterone) Jaswinder is pleased with his current regimen and is now become more independent in the administrationof testosterone. I recommended that he continue with the same dose and asked that he contact me if he develops any symptoms suggestive of inadequate testosterone. I will plan to see him again in clinicin 6 months. documented in this encounter Plan of Treatment Not on filedocumented as of this encounter Visit Diagnoses Diagnosis Hypogonadism male Other testicular hypofunction documented in this encounter Care Teams Interior Wall Assembler Relationship Specialty Start Date End Date Bernard Newman MD PCP - General Pediatrics 07/27/18 [address] [place] [address] documented as of this encounter
--- OUTSIDE RECORDS SUMMARY | 2022-05-10 08:34 | XMS_ITS | Encounter Summary ---
:2000 Author Organization [facility] [place] [address] Care Team Providers Name Role Phone Bernard Newman MD Primary Care Provider Reason for Visit Reason Onset Date Comments Appointment 07/02/2021 Encounter Details Date Type Department Care Team Description 07/02/2021 Telephone Endocrinology at [facility] [place] [address] Social History Tobacco Use Types Packs/Day Years Used Date Never Smoker Smokeless Tobacco: Never Used Comments: no one smokes Sex Assigned at Date Recorded Male 10/09/2021 8:40 AM EST documented as of this encounter Miscellaneous Notes Telephone Encounter - Tahmina Neil I - 07/02/2021 8:55 AM EDT Called to reschedule no showed appointment from referral. Letter sent and referral closed documented in this encounter Plan of Treatment Not on filedocumented as of this encounter Visit Diagnoses Not on filedocumented in this encounter Care Teams Make Ready Mechanic Relationship Specialty Start Date End Date Bernard Newman MD PCP - General Pediatrics 07/27/18 [place] [id number] documented as of this encounter
--- OUTSIDE RECORDS SUMMARY | 2022-05-10 08:34 | XMS_ITS | Encounter Summary ---
:2000 [place] [address] Care Team Providers Name Role Phone Bernard Newman MD Primary Care Provider Encounter Details Date Type Department Care Team Description 10/09/2021 [facility] [place] [address] Social History Tobacco Use Types Packs/Day Years Used Date Never Smoker Smokeless Tobacco: Never Used Comments: no one smokes Sex Assigned at Date Recorded Male 10/09/2021 8:40 AM EST documented as of this encounter Plan of Treatment Not on filedocumented as of this encounter Procedures Procedure Name Priority Date/Time Associated Diagnosis Comme nts HEMOGRAM Routine 10/09/2021 12:24 Hypogonadism male Result s for this PM EST procedure are i n the results section. DIFFERENTIAL, Routine 10/09/2021 12:24 Hypogonadism male Resul ts for this AUTOMATED PM EST procedure are i n the results section. HC PCH Routine 10/09/2021 12:24 Hypogonadism male Result s for this TESTOSTERONE,FREE PM EST procedure are in the results section. THYROID PEROXIDASE Routine 10/09/2021 12:24 Resul ts for this ANTIBODY PM EST procedure are i n the results section. HC VITAMIN D TOTAL-25 Routine 10/09/2021 12:24 Hypogonadism ma le Results for this HYDROXY PM EST procedure are i n the results section. HC PROLACTIN ASSAY, Routine 10/09/2021 12:24 Hypogonadism male Results for this SERUM PM EST procedure are i n the results section. HC VENIPUNCTURE Routine 10/09/2021 12:24 Hypogonadism male PM EST HC THYROID Routine 10/09/2021 12:24 Hypogonadism male Result s for this STIMULATING HORMONE, PM EST procedu re are in SERUM the results section. HC FREE THYROXINE Routine 10/09/2021 12:24 Hypogonadism male R esults for this (T4) PM EST procedure are i n the results section. documented in this encounter Results (ABNORMAL) Thyroid peroxidase antibody (10/09/2021 12:24 PM EST) athologist Signature Thyroperox Ab 49 (H) <=34 IU/mL [facility] Specimen Anatomical Collection Method Collection Time Receive d Time (Source) Location / / Volume Laterality Blood Venous Draw / 10/09/2021 12:24 10/10/2021 7:24 Unknown PM EST AM EST Resulting Agency Comment Spec In Lab Oliva Ann MD IMMUNOLOGY ORDERABLES Performing Organization Address City/State/[place] [address] Differential, Automated (10/09/2021 12:24 PM EST) athologist Signature Neutrophils % 58.6 % [facility] Neutr Abs (ANC) 3.65 1.70 - [facility] 6.10 [facility] x10(3)/[facility] LABORATORY Lymphocytes % 28.9 % [facility] Lymphocytes Abs 1.8 0.9 - 3.2 [facility] x10(3)/[facility] LABORATORY Monocytes % 9.6 % [facility] Monocyte Abs 0.6 0.3 - 0.9 [facility] x10(3)/[facility] LABORATORY Eosinophils % 1.6 % [facility] Eosinophils Abs 0.1 0.0 - 0.4 [facility] x10(3)/[facility] LABORATORY Basophils % 0.8 % [facility] Basophils Abs 0.0 0.0 - 0.1 [facility] x10(3)/[facility] LABORATORY Immature Gran % 0.50 % [facility] Comment: Immature granulocytes(IG's)percentage an d absolute count will include metamyelocytes, myelocytes, and promyelo cytes. Blood smears from CBCs yielding IG's will be scanned manually for concor dance. If this scan disagrees with the automated IG or if promyelocytes are not ed, a manual differential will be performed. Karen Gran Abs 0.03 0.00 - 0.04 x10(3)/[facility] MAR Y [facility]ORATORY Specimen Anatomical Collection Method Collection Time Receive d Time (Source) Location / / Volume Laterality Blood 10/09/2021 12:24 10/09/2021 PM EST 12:30 PM EST Resulting Agency Comment Spec In Lab Oliva Ann MD HEMATOLOGY ORDERABLES Performing Organization Address City/State/ZIP [place] [address] Hemogram (10/09/2021 12:24 PM EST) P athologist Signature WBC 6.2 4.0 - 9.5 [facility] x10(3)/[facility] LABORATORY RBC 5.15 4.58 - [facility] 5.54 [facility] x10(6)/[facility] LABORATORY Hemoglobin 15.3 13.7 - [facility] 16.5 g/dL [facility] Hematocrit 45.2 40.5 - [facility] 48.5 % [facility] MCV 87.8 82.9 - [facility] 93.1 [facility] LABORATORY MCH 29.7 27.5 - RAFA RAIZA 32.1 pg [facility] LABORATORY MCHC 33.8 32.0 - [facility] 35.7 g/dL [facility] LAB[facility] Platelets 217 145 - 357 [facility] x10(3)/[facility] LABORATORY RDWSD 39.8 36.0 - [facility] RAIZA 45.0 [facility] RDWCV 12.2 11.4 - [facility] RAIZA 13.8 % [facility] LABORATORY MPV 10.1 7.6 - 12.9 [facility] LABORATORY nRBC % Auto 0.0 % [facility] nRBC Abs Auto 0.000 0.000 - [facility] 0.000 [facility] x10(3)/[facility] LABORATORY Specimen Anatomical Collection Method Collection Time Receive d Time (Source) Location / / Volume Laterality Blood 10/09/2021 12:24 10/09/2021 PM EST 12:30 PM EST Resulting Agency Comment Spec In Lab Oliva Ann MD HEMATOLOGY ORDERABLES Performing Organization Address City/[facility]/ZIP Code Phon e Number [address] Prolactin (10/09/2021 12:24 PM EST) P athologist Signature Prolactin 8.1 4.0 - 15.2 [facility] RAIZA ng/mL [facility]ORY Specimen Anatomical Collection Method Collection Time Receive d Time (Source) Location / / Volume Laterality Blood 10/09/2021 12:24 10/09/2021 PM EST 12:30 PM EST Resulting Agency Comment Spec In Lab Gasper Zamora MD CHEMISTRY ORDERABLES Performing Organization Address City/[facility]/ZIP Code Phon e Number [address] Testosterone, total and free (10/09/2021 12:24 PM EST) athologist Signature Testo, Total 281 240 - 950 [facility] RAIZA (MS) ng/dL [facility] Comment: ADDITIONAL INFORMATIO N Testing performed by Liquid Chromatograp hy-Tandem Mass Spectrometry (LC-MS/MS). This test was developed and its performa nce characteristics determined by [facility] in a manner co nsistent with CLIA requirements. This test has not been reina ared or approved by the U.S. Food and Drug Administration. Test Performed by: [facility] [address] [facility] [address] [place], [place] [address] Brick Baker: Lb Trevino M.D. Ph. D.; CLIA# [id number] Testo Free 8.71 5.36 - 21.2 ng/dL [facility] Comment: ADDITIONAL INFORMATIO N Testing performed by Shalom vegas This test was developed and its performa nce characteristics determined by [facility] in a manner co nsistent with CLIA requirements. This test has not been reina ared or approved by the U.S. Food and Drug Administration. Test Performed by: [facility] [address] [address] Brick Baker: Lb Trevino M.D. Ph. D.; CLIA# [id number] Specimen Anatomical Collection Method Collection Time Receive d Time (Source) Location / / Volume Laterality Blood 10/09/2021 12:24 10/09/2021 3:54 PM EST PM EST Resulting Agency Comment Spec In Lab Gasper Zamora MD CHEMISTRY ORDERABLES Performing Organization Address City/[facility]/[place] [address] TSH (10/09/2021 12:24 PM EST) P athologist Signature TSH 1.35 0.27 - 4.20 [facility] RAIZA mcIU/mL [facility] Comment: Reference Interval (mcIU/mL): Females: ??First Trimester: 0.23-3.88 ??Second Trimester: 0.22-3.90 ??Third Trimester: 0.44-4.66 Specimen Anatomical Collection Method Collection Time Receive d Time (Source) Location / / Volume Laterality Blood 10/09/2021 12:24 10/09/2021 PM EST 12:30 PM EST Resulting Agency Comment Spec In Lab Gasper Zamora MD CHEMISTRY ORDERABLES Performing Organization Address City/[facility]/ZIP [facility] Phon e Number [address] (ABNORMAL) T4, free (10/09/2021 12:24 PM EST) P athologist Signature Free T4 0.89 (L) 0.93 - 1.70 RAFA FORTE ng/dL [facility] Comment: Reference Interval (ng/dL): Females: ??First Trimester: 0.97-1.68 ??Second Trimester: 0.77-1.51 ??Third Trimester: 0.77-1.49 Specimen Anatomical Collection Method Collection Time Receive d Time (Source) Location / / Volume Laterality Blood 10/09/2021 12:24 10/09/2021 PM EST 12:30 PM EST Resulting Agency Comment Spec In Lab Gasper Zamora MD CHEMISTRY ORDERABLES Performing Organization Address City/[facility]/[place] [address] Vitamin D, 25-Hydroxy (10/09/2021 12:24 PM EST) [facility] gist Method Time Signature 25-OH Vit D 41 21 - 100 [facility] Total ng/mL [facility]ORY 25-OH Vit D Sufficient [facility] LABORATORY Specimen Anatomical Collection Method Collection Time Receive d Time (Source) Location / / Volume Laterality Blood 10/09/2021 12:24 10/09/2021 PM EST 12:30 PM EST Resulting Agency Comment Spec In Lab Gasper Zamora MD CHEMISTRY ORDERABLES Performing Organization Address City/[facility]/ZIP Code Phon e Number [address] documented in this encounter Visit Diagnoses Diagnosis Hypogonadism male Other testicular hypofunction documented in this encounter Care Teams Glassworker Relationship Specialty Start Date End Date Bernard Newman MD PCP - General Pediatrics 07/27/[place] [address] documented as of this encounter
--- OUTSIDE RECORDS SUMMARY | 2022-05-10 08:34 | XMS_ITS | Encounter Summary ---
:2002 Author Organization [facility] Address [address] [place] [address] Care Team Providers Name Role Phone Unavailable Primary Care Provider Unavailable Encounter Details Date Type Department Care Team Description 05/12/2008 - Hospital Encounter [facility] delfino Abel, 06/10/2008 [facility] Pediatric Juliet Velasquez MD [address] [facility] [address] [place], [place] [id number] Social History Tobacco Use Types Packs/Day Years Used Date Never Assessed Sex Assigned at Date Recorded Not on file documented as of this encounter Discharge Disposition Disposition Code Departure Means Destination Home-Health Care Svc documented in this encounter Plan of Treatment Upcoming Encounters Date Type Specialty Care Team Description 12/18/2022 Ancillary Procedure Cardiology 12/18/2022 Office Visit Cardiology Bg Kelsey MD [address] [facility], [address] [place], [place] [phone] (Wo rk) Pending Results Name Type Priority Associated Diagnoses Date/Ti me MISCELLANEOUS TEST, OTHER Lab Routine 16:45 EDT Scheduled Orders Name Type Priority Associated Diagnoses Order S chedule MISCELLANEOUS TEST, OTHER Lab Routine ON CE for 1 Occurrences starting 2008 documented as of this encounter Procedures Procedure Name Priority Date/Time Associated Comments Diagnosis PRELIMINARY BONE MARROW Routine 06/10/2008 12:45 Results for this EDT procedure are i n the results section. MISCELLANEOUS TEST, NON Routine 06/10/2008 12:00 Results for this [place] EDT procedure are i n the results section. FLOW CYTOMETRY Routine 06/10/2008 12:00 Results f or this EDT procedure are i n the results section. TOTAL & DIRECT Routine 06/10/2008 6:05 Results fo r this BILIRUBIN EDT procedure are i n the results section. BUN Routine 06/10/2008 6:05 Results for this EDT procedure are i n the results section. ALT Routine 06/10/2008 6:05 Results for this EDT procedure are i n the results section. AST Routine 06/10/2008 6:05 Results for this EDT procedure are i n the results section. ALKALINE PHOSPHATASE Routine 06/10/2008 6:05 Resu lts for this EDT procedure are i n the results section. MAGNESIUM Routine 06/10/2008 6:05 Results for this EDT procedure are i n the results section. CREATININE Routine 06/10/2008 6:05 Results for this EDT procedure are i n the results section. CALCIUM Routine 06/10/2008 6:05 Results for this EDT procedure are i n the results section. ELECTROLYTES Routine 06/10/2008 6:05 Results for this EDT procedure are i n the results section. COMPLETE BLOOD COUNT Routine 06/10/2008 6:00 Resu lts for this AND DIFFERENTIAL EDT procedure a re in the results section. BONE MARROW/HEMPATH Routine 06/10/2008 0:00 Resul ts for this CONSULT EDT procedure are i n the results section. ECHOCARDIOGRAM 06/09/2008 14:50 Results f or this EDT procedure are i n the results section. COMPLETE BLOOD COUNT Routine 06/09/2008 6:00 Resu lts for this AND DIFFERENTIAL EDT procedure a re in the results section. TOTAL & DIRECT Routine 06/09/2008 6:00 Results fo r this BILIRUBIN EDT procedure are i n the results section. BUN Routine 06/09/2008 6:00 Results for this EDT procedure are i n the results section. ALT Routine 06/09/2008 6:00 Results for this EDT procedure are i n the results section. AST Routine 06/09/2008 6:00 Results for this EDT procedure are i n the results section. ALKALINE PHOSPHATASE Routine 06/09/2008 6:00 Resu lts for this EDT procedure are i n the results section. MAGNESIUM Routine 06/09/2008 6:00 Results for this EDT procedure are i n the results section. CREATININE Routine 06/09/2008 6:00 Results for this EDT procedure are i n the results section. CALCIUM Routine 06/09/2008 6:00 Results for this EDT procedure are i n the results section. ELECTROLYTES Routine 06/09/2008 6:00 Results for this EDT procedure are i n the results section. VANCOMYCIN TROUGH Routine 06/08/2008 18:00 Result s for this EDT procedure are i n the results section. COMPLETE BLOOD COUNT Routine 06/08/2008 6:05 Resu lts for this AND DIFFERENTIAL EDT procedure a re in the results section. BUN Routine 06/08/2008 6:05 Results for this EDT procedure are i n the results section. MAGNESIUM Routine 06/08/2008 6:05 Results for this EDT procedure are i n the results section. CREATININE Routine 06/08/2008 6:05 Results for this EDT procedure are i n the results section. CALCIUM Routine 06/08/2008 6:05 Results for this EDT procedure are i n the results section. ELECTROLYTES Routine 06/08/2008 6:05 Results for this EDT procedure are i n the results section. LEGIONELLA ANTIGEN Routine 06/07/2008 7:10 Result s for this DETECTION, URINE EDT procedure a re in the results section. SLIDE REQUEST Routine 06/07/2008 6:00 Results for this EDT procedure are i n the results section. TESTS ADDED BY PHONE Routine 06/07/2008 6:00 Resu lts for this EDT procedure are i n the results section. DIFFERENTIAL Routine 06/07/2008 6:00 Results for this EDT procedure are i n the results section. COMPLETE BLOOD COUNT Routine 06/07/2008 6:00 Resu lts for this EDT procedure are i n the results section. CMV QUALITATIVE BY PCR Routine 06/07/2008 6:00 Re sults for this EDT procedure are i n the results section. FUNGUS CULTURE, BLOOD Routine 06/06/2008 4:18 Res ults for this EDT procedure are i n the results section. BACTERIAL CULTURE, Routine 06/06/2008 4:18 Result s for this BLOOD EDT procedure are i n the results section. FUNGUS CULTURE, BLOOD Routine 06/06/2008 4:16 Res ults for this EDT procedure are i n the results section. BACTERIAL CULTURE, Routine 06/06/2008 4:16 Result s for this BLOOD EDT procedure are i n the results section. COMPLETE BLOOD COUNT Routine 06/06/2008 4:05 Resu lts for this AND DIFFERENTIAL EDT procedure a re in the results section. TOTAL & DIRECT Routine 06/06/2008 4:05 Results fo r this BILIRUBIN EDT procedure are i n the results section. BUN Routine 06/06/2008 4:05 Results for this EDT procedure are i n the results section. ALT Routine 06/06/2008 4:05 Results for this EDT procedure are i n the results section. AST Routine 06/06/2008 4:05 Results for this EDT procedure are i n the results section. ALKALINE PHOSPHATASE Routine 06/06/2008 4:05 Resu lts for this EDT procedure are i n the results section. CREATININE Routine 06/06/2008 4:05 Results for this EDT procedure are i n the results section. ELECTROLYTES Routine 06/06/2008 4:05 Results for this EDT procedure are i n the results section. FUNGUS CULTURE, BLOOD Routine 06/05/2008 4:00 Res ults for this EDT procedure are i n the results section. FUNGUS CULTURE, BLOOD Routine 06/05/2008 4:00 Res ults for this EDT procedure are i n the results section. BACTERIAL CULTURE, Routine 06/05/2008 4:00 Result s for this BLOOD EDT procedure are i n the results section. BACTERIAL CULTURE, Routine 06/05/2008 4:00 Result s for this BLOOD EDT procedure are i n the results section. COMPLETE BLOOD COUNT Routine 06/05/2008 4:00 Resu lts for this AND DIFFERENTIAL EDT procedure a re in the results section. FUNGUS CULTURE, BLOOD Routine 06/04/2008 4:15 Res ults for this EDT procedure are i n the results section. BACTERIAL CULTURE, Routine 06/04/2008 4:15 Result s for this BLOOD EDT procedure are i n the results section. COMPLETE BLOOD COUNT Routine 06/04/2008 4:15 Resu lts for this AND DIFFERENTIAL EDT procedure a re in the results section. BUN Routine 06/04/2008 4:15 Results for this EDT procedure are i n the results section. CREATININE Routine 06/04/2008 4:15 Results for this EDT procedure are i n the results section. ELECTROLYTES Routine 06/04/2008 4:15 Results for this EDT procedure are i n the results section. FUNGUS CULTURE, BLOOD Routine 06/03/2008 4:20 Res ults for this EDT procedure are i n the results section. FUNGUS CULTURE, BLOOD Routine 06/03/2008 4:20 Res ults for this EDT procedure are i n the results section. BACTERIAL CULTURE, Routine 06/03/2008 4:20 Result s for this BLOOD EDT procedure are i n the results section. BACTERIAL CULTURE, Routine 06/03/2008 4:20 Result s for this BLOOD EDT procedure are i n the results section. COMPLETE BLOOD COUNT Routine 06/03/2008 4:20 Resu lts for this AND DIFFERENTIAL EDT procedure a re in the results section. MAGNESIUM Routine 06/03/2008 4:20 Results for this EDT procedure are i n the results section. ELECTROLYTES Routine 06/03/2008 4:20 Results for this EDT procedure are i n the results section. COMPLETE BLOOD COUNT Routine 06/02/2008 6:00 Resu lts for this AND DIFFERENTIAL EDT procedure a re in the results section. FUNGUS CULTURE, BLOOD Routine 06/02/2008 4:31 Res ults for this EDT procedure are i n the results section. BACTERIAL CULTURE, Routine 06/02/2008 4:31 Result s for this BLOOD EDT procedure are i n the results section. FUNGUS CULTURE, BLOOD Routine 06/02/2008 4:30 Res ults for this EDT procedure are i n the results section. BACTERIAL CULTURE, Routine 06/02/2008 4:30 Result s for this BLOOD EDT procedure are i n the results section. TOTAL & DIRECT Routine 06/02/2008 4:30 Results fo r this BILIRUBIN EDT procedure are i n the results section. BUN Routine 06/02/2008 4:30 Results for this EDT procedure are i n the results section. ALT Routine 06/02/2008 4:30 Results for this EDT procedure are i n the results section. AST Routine 06/02/2008 4:30 Results for this EDT procedure are i n the results section. PHOSPHORUS Routine 06/02/2008 4:30 Results for this EDT procedure are i n the results section. ALKALINE PHOSPHATASE Routine 06/02/2008 4:30 Resu lts for this EDT procedure are i n the results section. CREATININE Routine 06/02/2008 4:30 Results for this EDT procedure are i n the results section. ELECTROLYTES Routine 06/02/2008 4:30 Results for this EDT procedure are i n the results section. FUNGUS CULTURE, BLOOD Routine 06/01/2008 18:20 Re sults for this EDT procedure are i n the results section. FUNGUS CULTURE, BLOOD Routine 06/01/2008 18:20 Re sults for this EDT procedure are i n the results section. BACTERIAL CULTURE, Routine 06/01/2008 18:20 Resul ts for this BLOOD EDT procedure are i n the results section. BACTERIAL CULTURE, Routine 06/01/2008 18:20 Resul ts for this BLOOD EDT procedure are i n the results section. CT ABDOMEN, PELVIS W 06/01/2008 13:58 Res ults for this CONTRAST EDT procedure are i n the results section. CT SINUS COMPLETE WO 06/01/2008 13:45 Res ults for this CONTRAST EDT procedure are i n the results section. HOLD PURPLE TOP Routine 06/01/2008 6:25 Results f or this EDT procedure are i n the results section. HOLD GREEN TOP Routine 06/01/2008 6:25 Results fo r this EDT procedure are i n the results section. COMPLETE BLOOD COUNT Routine 06/01/2008 6:25 Resu lts for this AND DIFFERENTIAL EDT procedure a re in the results section. PHOSPHORUS Routine 06/01/2008 6:25 Results for this EDT procedure are i n the results section. CT CHEST WO CONTRAST 05/31/2008 18:01 Res ults for this EDT procedure are i n the results section. COMPLETE BLOOD COUNT Routine 05/31/2008 6:30 Resu lts for this AND DIFFERENTIAL EDT procedure a re in the results section. BUN Routine 05/31/2008 6:30 Results for this EDT procedure are i n the results section. PHOSPHORUS Routine 05/31/2008 6:30 Results for this EDT procedure are i n the results section. CREATININE Routine 05/31/2008 6:30 Results for this EDT procedure are i n the results section. ELECTROLYTES Routine 05/31/2008 6:30 Results for this EDT procedure are i n the results section. COMPLETE BLOOD COUNT Routine 05/30/2008 6:15 Resu lts for this AND DIFFERENTIAL EDT procedure a re in the results section. PHOSPHORUS Routine 05/30/2008 6:15 Results for this EDT procedure are i n the results section. COMPLETE BLOOD COUNT Routine 05/29/2008 6:15 Resu lts for this AND DIFFERENTIAL EDT procedure a re in the results section. PHOSPHORUS Routine 05/29/2008 6:15 Results for this EDT procedure are i n the results section. COMPLETE BLOOD COUNT Routine 05/28/2008 6:15 Resu lts for this AND DIFFERENTIAL EDT procedure a re in the results section. BUN Routine 05/28/2008 6:15 Results for this EDT procedure are i n the results section. PHOSPHORUS Routine 05/28/2008 6:15 Results for this EDT procedure are i n the results section. CREATININE Routine 05/28/2008 6:15 Results for this EDT procedure are i n the results section. ELECTROLYTES Routine 05/28/2008 6:15 Results for this EDT procedure are i n the results section. COMPLETE BLOOD COUNT Routine 05/27/2008 3:40 Resu lts for this AND DIFFERENTIAL EDT procedure a re in the results section. PHOSPHORUS Routine 05/27/2008 3:40 Results for this EDT procedure are i n the results section. VANCOMYCIN TROUGH Routine 05/26/2008 12:10 Result s for this EDT procedure are i n the results section. COMPLETE BLOOD COUNT Routine 05/26/2008 5:45 Resu lts for this AND DIFFERENTIAL EDT procedure a re in the results section. BUN Routine 05/26/2008 5:45 Results for this EDT procedure are i n the results section. PHOSPHORUS Routine 05/26/2008 5:45 Results for this EDT procedure are i n the results section. CREATININE Routine 05/26/2008 5:45 Results for this EDT procedure are i n the results section. ELECTROLYTES Routine 05/26/2008 5:45 Results for this EDT procedure are i n the results section. COMPLETE BLOOD COUNT Routine 05/25/2008 3:40 Resu lts for this AND DIFFERENTIAL EDT procedure a re in the results section. BUN Routine 05/25/2008 3:40 Results for this EDT procedure are i n the results section. PHOSPHORUS Routine 05/25/2008 3:40 Results for this EDT procedure are i n the results section. CREATININE Routine 05/25/2008 3:40 Results for this EDT procedure are i n the results section. ELECTROLYTES Routine 05/25/2008 3:40 Results for this EDT procedure are i n the results section. FUNGUS CULTURE, BLOOD Routine 05/24/2008 20:30 Re sults for this EDT procedure are i n the results section. BACTERIAL CULTURE, Routine 05/24/2008 20:30 Resul ts for this BLOOD EDT procedure are i n the results section. COMPLETE BLOOD COUNT Routine 05/24/2008 5:55 Resu lts for this AND DIFFERENTIAL EDT procedure a re in the results section. BUN Routine 05/24/2008 5:55 Results for this EDT procedure are i n the results section. PHOSPHORUS Routine 05/24/2008 5:55 Results for this EDT procedure are i n the results section. CREATININE Routine 05/24/2008 5:55 Results for this EDT procedure are i n the results section. ELECTROLYTES Routine 05/24/2008 5:55 Results for this EDT procedure are i n the results section. COMPLETE BLOOD COUNT Routine 05/23/2008 5:40 Resu lts for this AND DIFFERENTIAL EDT procedure a re in the results section. TOTAL & DIRECT Routine 05/23/2008 5:40 Results fo r this BILIRUBIN EDT procedure are i n the results section. ALT Routine 05/23/2008 5:40 Results for this EDT procedure are i n the results section. AST Routine 05/23/2008 5:40 Results for this EDT procedure are i n the results section. PHOSPHORUS Routine 05/23/2008 5:40 Results for this EDT procedure are i n the results section. MAGNESIUM Routine 05/23/2008 5:40 Results for this EDT procedure are i n the results section. GLUCOSE, SERUM Routine 05/23/2008 5:40 Results fo r this EDT procedure are i n the results section. COMPLETE BLOOD COUNT Routine 05/22/2008 5:50 Resu lts for this AND DIFFERENTIAL EDT procedure a re in the results section. TOTAL & DIRECT Routine 05/22/2008 5:50 Results fo r this BILIRUBIN EDT procedure are i n the results section. ALT Routine 05/22/2008 5:50 Results for this EDT procedure are i n the results section. AST Routine 05/22/2008 5:50 Results for this EDT procedure are i n the results section. PHOSPHORUS Routine 05/22/2008 5:50 Results for this EDT procedure are i n the results section. MAGNESIUM Routine 05/22/2008 5:50 Results for this EDT procedure are i n the results section. GLUCOSE, SERUM Routine 05/22/2008 5:50 Results fo r this EDT procedure are i n the results section. KNEE 1 OR 2 VIEWS 05/21/2008 9:55 Results for this EDT procedure are i n the results section. KNEE 1 OR 2 VIEWS 05/21/2008 9:55 Results for this EDT procedure are i n the results section. COMPLETE BLOOD COUNT Routine 05/21/2008 5:45 Resu lts for this AND DIFFERENTIAL EDT procedure a re in the results section. TOTAL & DIRECT Routine 05/21/2008 5:45 Results fo r this BILIRUBIN EDT procedure are i n the results section. BUN Routine 05/21/2008 5:45 Results for this EDT procedure are i n the results section. ALT Routine 05/21/2008 5:45 Results for this EDT procedure are i n the results section. AST Routine 05/21/2008 5:45 Results for this EDT procedure are i n the results section. PHOSPHORUS Routine 05/21/2008 5:45 Results for this EDT procedure are i n the results section. MAGNESIUM Routine 05/21/2008 5:45 Results for this EDT procedure are i n the results section. GLUCOSE, SERUM Routine 05/21/2008 5:45 Results fo r this EDT procedure are i n the results section. CREATININE Routine 05/21/2008 5:45 Results for this EDT procedure are i n the results section. ELECTROLYTES Routine 05/21/2008 5:45 Results for this EDT procedure are i n the results section. COMPLETE BLOOD COUNT Routine 05/20/2008 4:01 Resu lts for this AND DIFFERENTIAL EDT procedure a re in the results section. ALT Routine 05/20/2008 4:01 Results for this EDT procedure are i n the results section. AST Routine 05/20/2008 4:01 Results for this EDT procedure are i n the results section. PHOSPHORUS Routine 05/20/2008 4:01 Results for this EDT procedure are i n the results section. MAGNESIUM Routine 05/20/2008 4:01 Results for this EDT procedure are i n the results section. GLUCOSE, SERUM Routine 05/20/2008 4:01 Results fo r this EDT procedure are i n the results section. RAD US DOPPLER EXT 05/19/2008 11:42 Resul ts for this VENOUS UNILATERAL EDT procedure are in the results section. COMPLETE BLOOD COUNT Routine 05/19/2008 4:40 Resu lts for this AND DIFFERENTIAL EDT procedure a re in the results section. ALT Routine 05/19/2008 4:40 Results for this EDT procedure are i n the results section. AST Routine 05/19/2008 4:40 Results for this EDT procedure are i n the results section. PHOSPHORUS Routine 05/19/2008 4:40 Results for this EDT procedure are i n the results section. MAGNESIUM Routine 05/19/2008 4:40 Results for this EDT procedure are i n the results section. GLUCOSE, SERUM Routine 05/19/2008 4:40 Results fo r this EDT procedure are i n the results section. COMPLETE BLOOD COUNT Routine 05/18/2008 7:40 Resu lts for this AND DIFFERENTIAL EDT procedure a re in the results section. TOTAL & DIRECT Routine 05/18/2008 4:00 Results fo r this BILIRUBIN EDT procedure are i n the results section. URIC ACID Routine 05/18/2008 4:00 Results for this EDT procedure are i n the results section. ALT Routine 05/18/2008 4:00 Results for this EDT procedure are i n the results section. AST Routine 05/18/2008 4:00 Results for this EDT procedure are i n the results section. PHOSPHORUS Routine 05/18/2008 4:00 Results for this EDT procedure are i n the results section. MAGNESIUM Routine 05/18/2008 4:00 Results for this EDT procedure are i n the results section. GLUCOSE, SERUM Routine 05/18/2008 4:00 Results fo r this EDT procedure are i n the results section. ELECTROLYTES Routine 05/18/2008 4:00 Results for this EDT procedure are i n the results section. HLA PRELIMINARY Routine 05/17/2008 15:45 Results for this CROSSMATCH EDT procedure are i n the results section. BONE MARROW RECIPIENT Routine 05/17/2008 15:45 Re sults for this HLA TYPE EDT procedure are i n the results section. BONE MARROW PATIENT Routine 05/17/2008 15:45 Resu lts for this ANTIBODY SCREEN EDT procedure ar e in the results section. BONE MARROW DR TYPE Routine 05/17/2008 15:45 Resu lts for this EDT procedure are i n the results section. URINALYSIS WITH Routine 05/17/2008 3:45 Results f or this MICROSCOPIC IF POSITIVE EDT proc edure are in the results section. UA REFLEX Routine 05/17/2008 3:45 Results for this EDT procedure are i n the results section. REFRACTOMETER SPECIFIC Routine 05/17/2008 3:45 Re sults for this GRAVITY, URINE EDT procedure are in the results section. COMPLETE BLOOD COUNT Routine 05/17/2008 2:30 Resu lts for this AND DIFFERENTIAL EDT procedure a re in the results section. TOTAL & DIRECT Routine 05/17/2008 2:30 Results fo r this BILIRUBIN EDT procedure are i n the results section. URIC ACID Routine 05/17/2008 2:30 Results for this EDT procedure are i n the results section. BUN Routine 05/17/2008 2:30 Results for this EDT procedure are i n the results section. ALT Routine 05/17/2008 2:30 Results for this EDT procedure are i n the results section. AST Routine 05/17/2008 2:30 Results for this EDT procedure are i n the results section. PHOSPHORUS Routine 05/17/2008 2:30 Results for this EDT procedure are i n the results section. MAGNESIUM Routine 05/17/2008 2:30 Results for this EDT procedure are i n the results section. GLUCOSE, SERUM Routine 05/17/2008 2:30 Results fo r this EDT procedure are i n the results section. CREATININE Routine 05/17/2008 2:30 Results for this EDT procedure are i n the results section. CALCIUM Routine 05/17/2008 2:30 Results for this EDT procedure are i n the results section. ELECTROLYTES Routine 05/17/2008 2:30 Results for this EDT procedure are i n the results section. URINALYSIS WITH Routine 05/16/2008 19:05 Results for this MICROSCOPIC IF POSITIVE EDT proc edure are in the results section. UA REFLEX Routine 05/16/2008 19:05 Results for this EDT procedure are i n the results section. REFRACTOMETER SPECIFIC Routine 05/16/2008 19:05 R esults for this GRAVITY, URINE EDT procedure are in the results section. URIC ACID Routine 05/16/2008 14:00 Results for this EDT procedure are i n the results section. BUN Routine 05/16/2008 14:00 Results for this EDT procedure are i n the results section. PHOSPHORUS Routine 05/16/2008 14:00 Results for this EDT procedure are i n the results section. CREATININE Routine 05/16/2008 14:00 Results for this EDT procedure are i n the results section. ELECTROLYTES Routine 05/16/2008 14:00 Results for this EDT procedure are i n the results section. URINALYSIS WITH Routine 05/16/2008 11:30 Results for this MICROSCOPIC IF POSITIVE EDT proc edure are in the results section. UA REFLEX Routine 05/16/2008 11:30 Results for this EDT procedure are i n the results section. REFRACTOMETER SPECIFIC Routine 05/16/2008 11:30 R esults for this GRAVITY, URINE EDT procedure are in the results section. URINALYSIS WITH Routine 05/16/2008 4:35 Results f or this MICROSCOPIC IF POSITIVE EDT proc edure are in the results section. UA REFLEX Routine 05/16/2008 4:35 Results for this EDT procedure are i n the results section. COMPLETE BLOOD COUNT Routine 05/16/2008 4:00 Resu lts for this AND DIFFERENTIAL EDT procedure a re in the results section. URIC ACID Routine 05/16/2008 4:00 Results for this EDT procedure are i n the results section. BUN Routine 05/16/2008 4:00 Results for this EDT procedure are i n the results section. PHOSPHORUS Routine 05/16/2008 4:00 Results for this EDT procedure are i n the results section. CREATININE Routine 05/16/2008 4:00 Results for this EDT procedure are i n the results section. CALCIUM Routine 05/16/2008 4:00 Results for this EDT procedure are i n the results section. ELECTROLYTES Routine 05/16/2008 4:00 Results for this EDT procedure are i n the results section. URINALYSIS WITH Routine 05/15/2008 21:35 Results for this MICROSCOPIC IF POSITIVE EDT proc edure are in the results section. UA REFLEX Routine 05/15/2008 21:35 Results for this EDT procedure are i n the results section. URIC ACID Routine 05/15/2008 20:10 Results for this EDT procedure are i n the results section. BUN Routine 05/15/2008 20:10 Results for this EDT procedure are i n the results section. PHOSPHORUS Routine 05/15/2008 20:10 Results for this EDT procedure are i n the results section. CREATININE Routine 05/15/2008 20:10 Results for this EDT procedure are i n the results section. CALCIUM Routine 05/15/2008 20:10 Results for this EDT procedure are i n the results section. ELECTROLYTES Routine 05/15/2008 20:10 Results for this EDT procedure are i n the results section. URINALYSIS WITH Routine 05/15/2008 16:00 Results for this MICROSCOPIC IF POSITIVE EDT proc edure are in the results section. UA REFLEX Routine 05/15/2008 16:00 Results for this EDT procedure are i n the results section. URIC ACID Routine 05/15/2008 11:30 Results for this EDT procedure are i n the results section. BUN Routine 05/15/2008 11:30 Results for this EDT procedure are i n the results section. PHOSPHORUS Routine 05/15/2008 11:30 Results for this EDT procedure are i n the results section. CREATININE Routine 05/15/2008 11:30 Results for this EDT procedure are i n the results section. ELECTROLYTES Routine 05/15/2008 11:30 Results for this EDT procedure are i n the results section. URINALYSIS WITH Routine 05/15/2008 9:20 Results f or this MICROSCOPIC IF POSITIVE EDT proc edure are in the results section. UA REFLEX Routine 05/15/2008 9:20 Results for this EDT procedure are i n the results section. COMPLETE BLOOD COUNT Routine 05/15/2008 4:30 Resu lts for this AND DIFFERENTIAL EDT procedure a re in the results section. TOTAL & DIRECT Routine 05/15/2008 4:30 Results fo r this BILIRUBIN EDT procedure are i n the results section. URIC ACID Routine 05/15/2008 4:30 Results for this EDT procedure are i n the results section. BUN Routine 05/15/2008 4:30 Results for this EDT procedure are i n the results section. ALT Routine 05/15/2008 4:30 Results for this EDT procedure are i n the results section. AST Routine 05/15/2008 4:30 Results for this EDT procedure are i n the results section. PHOSPHORUS Routine 05/15/2008 4:30 Results for this EDT procedure are i n the results section. MAGNESIUM Routine 05/15/2008 4:30 Results for this EDT procedure are i n the results section. GLUCOSE, SERUM Routine 05/15/2008 4:30 Results fo r this EDT procedure are i n the results section. CREATININE Routine 05/15/2008 4:30 Results for this EDT procedure are i n the results section. ELECTROLYTES Routine 05/15/2008 4:30 Results for this EDT procedure are i n the results section. URINALYSIS WITH Routine 05/15/2008 2:15 Results f or this MICROSCOPIC IF POSITIVE EDT proc edure are in the results section. UA REFLEX Routine 05/15/2008 2:15 Results for this EDT procedure are i n the results section. BACTERIAL CULTURE, Routine 05/14/2008 22:30 Resul ts for this BLOOD EDT procedure are i n the results section. BACTERIAL CULTURE, Routine 05/14/2008 22:30 Resul ts for this BLOOD EDT procedure are i n the results section. URINALYSIS WITH Routine 05/14/2008 21:15 Results for this MICROSCOPIC IF POSITIVE EDT proc edure are in the results section. UA REFLEX Routine 05/14/2008 21:15 Results for this EDT procedure are i n the results section. URIC ACID Routine 05/14/2008 20:15 Results for this EDT procedure are i n the results section. BUN Routine 05/14/2008 20:15 Results for this EDT procedure are i n the results section. PHOSPHORUS Routine 05/14/2008 20:15 Results for this EDT procedure are i n the results section. CREATININE Routine 05/14/2008 20:15 Results for this EDT procedure are i n the results section. ELECTROLYTES Routine 05/14/2008 20:15 Results for this EDT procedure are i n the results section. URINALYSIS WITH Routine 05/14/2008 19:15 Results for this MICROSCOPIC IF POSITIVE EDT proc edure are in the results section. UA REFLEX Routine 05/14/2008 19:15 Results for this EDT procedure are i n the results section. IR DIALYSIS OR TUNNELED 05/14/2008 13:25 Results for this CV CATHETER EDT procedure are i n the results section. CELL COUNT,CSF Routine 05/14/2008 13:00 Results f or this EDT procedure are i n the results section. FLUID DIFFERENTIAL Routine 05/14/2008 13:00 Resul ts for this EDT procedure are i n the results section. TOTAL PROTEIN, CSF Routine 05/14/2008 13:00 Resul ts for this EDT procedure are i n the results section. GLUCOSE CSF Routine 05/14/2008 13:00 Results for this EDT procedure are i n the results section. COMPLETE BLOOD COUNT Routine 05/14/2008 4:30 Resu lts for this AND DIFFERENTIAL EDT procedure a re in the results section. TOTAL & DIRECT Routine 05/14/2008 4:30 Results fo r this BILIRUBIN EDT procedure are i n the results section. BUN Routine 05/14/2008 4:30 Results for this EDT procedure are i n the results section. ALT Routine 05/14/2008 4:30 Results for this EDT procedure are i n the results section. AST Routine 05/14/2008 4:30 Results for this EDT procedure are i n the results section. PHOSPHORUS Routine 05/14/2008 4:30 Results for this EDT procedure are i n the results section. MAGNESIUM Routine 05/14/2008 4:30 Results for this EDT procedure are i n the results section. GLUCOSE, SERUM Routine 05/14/2008 4:30 Results fo r this EDT procedure are i n the results section. CREATININE Routine 05/14/2008 4:30 Results for this EDT procedure are i n the results section. ELECTROLYTES Routine 05/14/2008 4:30 Results for this EDT procedure are i n the results section. URINALYSIS WITH Routine 05/13/2008 18:45 Results for this MICROSCOPIC IF POSITIVE EDT proc edure are in the results section. UA REFLEX Routine 05/13/2008 18:45 Results for this EDT procedure are i n the results section. URINALYSIS WITH Routine 05/13/2008 16:15 Results for this MICROSCOPIC IF POSITIVE EDT proc edure are in the results section. UA REFLEX Routine 05/13/2008 16:15 Results for this EDT procedure are i n the results section. ECHOCARDIOGRAM 05/13/2008 14:45 Results f or this EDT procedure are i n the results section. URINALYSIS WITH Routine 05/13/2008 13:50 Results for this MICROSCOPIC IF POSITIVE EDT proc edure are in the results section. UA REFLEX Routine 05/13/2008 13:50 Results for this EDT procedure are i n the results section. COMPLETE BLOOD COUNT Routine 05/13/2008 12:20 Res ults for this AND DIFFERENTIAL EDT procedure a re in the results section. URINALYSIS WITH Routine 05/13/2008 11:15 Results for this MICROSCOPIC IF POSITIVE EDT proc edure are in the results section. UA REFLEX Routine 05/13/2008 11:15 Results for this EDT procedure are i n the results section. URINALYSIS WITH Routine 05/13/2008 9:00 Results f or this MICROSCOPIC IF POSITIVE EDT proc edure are in the results section. UA REFLEX Routine 05/13/2008 9:00 Results for this EDT procedure are i n the results section. BACTERIAL CULTURE, Routine 05/13/2008 9:00 Result s for this URINE EDT procedure are i n the results section. FUNGUS CULTURE, BLOOD Routine 05/13/2008 8:50 Res ults for this EDT procedure are i n the results section. BACTERIAL CULTURE, Routine 05/13/2008 8:50 Result s for this BLOOD EDT procedure are i n the results section. MISCELLANEOUS TEST, NON Routine 05/12/2008 16:45 Results for this [place] EDT procedure are i n the results section. MISCELLANEOUS TEST, NON Routine 05/12/2008 16:45 Results for this [place] EDT procedure are i n the results section. MISCELLANEOUS TEST, Routine 05/12/2008 16:45 Resu lts for this OTHER EDT procedure are i n the results section. MISCELLANEOUS TEST, Routine 05/12/2008 16:45 Resu lts for this OTHER EDT procedure are i n the results section. PRELIMINARY BONE MARROW Routine 05/12/2008 16:45 Results for this EDT procedure are i n the results section. FLOW CYTOMETRY Routine 05/12/2008 16:45 Results f or this EDT procedure are i n the results section. COMPLETE BLOOD COUNT Routine 05/12/2008 15:29 Res ults for this AND DIFFERENTIAL EDT procedure a re in the results section. URIC ACID Routine 05/12/2008 15:29 Results for this EDT procedure are i n the results section. PHOSPHORUS Routine 05/12/2008 15:29 Results for this EDT procedure are i n the results section. MAGNESIUM Routine 05/12/2008 15:29 Results for this EDT procedure are i n the results section. LDH Routine 05/12/2008 15:29 Results for this EDT procedure are i n the results section. COMPREHENSIVE METABOLIC Routine 05/12/2008 15:29 Results for this PANEL (CMP) EDT procedure are i n the results section. URIC ACID Routine 05/12/2008 9:19 Results for this EDT procedure are i n the results section. PHOSPHORUS Routine 05/12/2008 9:19 Results for this EDT procedure are i n the results section. ELECTROLYTES Routine 05/12/2008 9:19 Results for this EDT procedure are i n the results section. CYTOGENETICS Routine 05/12/2008 0:00 Results for this EDT procedure are i n the results section. BONE MARROW/HEMPATH Routine 05/12/2008 0:00 Resul ts for this CONSULT EDT procedure are i n the results section. documented in this encounter Results BONE MARROW EXAM (06/10/2008 12:45 EDT) Preliminary Bone CELLULAR,AWAIT FINAL 1% BLASTS.[[id number]] [facility] Marrow Exam Reviewed by Dr. Vinod MUSA PRELIMINARY REPORT, SEE HEMATOPATHOLOGY REPORT FOR FINAL REPORT Specimen Performing Organization Address City/State/ZIP Code Phon e Number [facility] [address] [place] [address] SERVICES [facility] [address] [place] [address] FLOW CYTOMETRY (06/10/2008 12:00 EDT) Pathologist [facility] [place] Pathology FLOW CYTOMETRY REPORT ? [facility] Report: ? LAB Reports generated via electr [employer] interface contain original data; ? however they are lacking the format of the original report. ? Caution should be taken when reading/interpreting unformatted reports. ? Name: ? DIANA PERRIN ? Accession #: ? [id number] ? : ? 2000 (Age: 8) ??M ?Collect Date: ? 06/10/2008 12:00 ? Location: ? [facility] ? Receive Date: ? 06/10/2008 13:15 ? Provider: ?JULIET NUÑEZ MD ? Copy to: ? Specimen/ Type: ?B one Marrow - ??Flow Cytometry ? 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 Immunophenotype Analysis ? Date Tested: ??08/01/08 ? Description: ? The specimen consists of bon e marrow that is by Ficoll-Hypaque density gradient centrifugation. ??G ating is performed using CD45 fluorescence and side ?? scatter. ??Cellular viabilit y (assessed by propidium iodide exclusion) is ? excellent (99%) among cells with CD45 and side scatter properties typical of ? lymphocytes and excellent (1 00%) among CD45+ events overall. ??Expression of the following markers is tested: ??CD2, [...] remaining lymphocytes are rare B-lymphocytes (CD19+CD20+CD22+) and rare N K-cells (CD2+CD3-CD16+CD56+). B-cells are too few in number to permit definitive assessment with respect to light chain expression. ?? The remainder of the CD45+ e vents is predominantly of myeloid lineage. ??There is no significant increase in b lasts or plasma cells. ? The results of flow cytometr y show no immunophenotypic evidence of involvement ?? by a clonal myeloproliferati ve disorder. ??The results are consistent with a ? mixed population of hematopo ietic cells. ??There are no leukemic myeloblasts ? detected. ??Correlation of elvin torres findings with morphologic and clinical data is ?? essential; please refer to b one marrow report ([id number]) for morphologic ? details. ? Final Interpretation: ? Final Immunophenotypic Inter pretation: ? Bone marrow, flow cyt ometric analysis: ? No immunophenotypic e vidence of a clonal cell population. ??No leukemic ? myeloblasts detected. ??See ? description. ? This test was developed and its performance characteristics determined by the ?? Department of Pathology and Laboratory Medicine, [facility], ? [place]. ??It has not been cleared or approved by the U.S. Food and Drug ?? Administration. ? Document reviewed and electr onically signed by: ? Marty H. Harris, MD ? Report Date: ??06/13/2008 11 :06 ? By the signature above, the attending physician certifies that he/she has ? personally conducted an eval uation of the described specimen and rendered or ? confirmed the above diagnosi s. ? End of Report ? Specimen Performing Organization Address City/State/ZIP Code Phon e Number [facility] [address] [place] [phone] SERVICES [facility] [address] [place] [address] MISCELLANEOUS TEST (06/10/2008 12:00 EDT) Test Name TO BE DETERMINED BY [facility] STUDY SITE Result RESULTS ARE NOT [facility] EXPECTED Date Sample [facility] Shipped Specimen Performing Organization Address [facility]/ZIP Code Phon e Number [facility] [address] [place] [address] SERVICES [facility] [address] [place] [address] MAGNESIUM (06/10/2008 6:05 EDT) Pathologist Sig nature Magnesium 2.3 1.7 - 2.8 mg/dl [facility] Specimen Performing Organization Address [facility]/ZIP Code Phon e Number [facility] [address] [place] [address] SERVICES [facility] [address] [place] [address] CREATININE (06/10/2008 6:05 EDT) Pathologist Sig nature Creatinine 0.34 0.1 - 0.7 mg/dl [facility] GFR, Calculated Age <18 ml/min/1.73m2 [facility] Specimen Performing Organization Address [facility] Code Phon e Number [facility] [address] [place] [address] SERVICES [facility] [address] [place] [address] (ABNORMAL) BUN (06/10/2008 6:05 EDT) Pathologist Sig nature BUN 5 (L) 7 - 18 mg/dl [facility] Specimen Performing Organization Address [facility]/ZIP [facility] Phon e Number [facility] [address] [place] [address] SERVICES [facility] [address] [place] [address] TOTAL & DIRECT BILIRUBIN (06/10/2008 6:05 EDT) Pathologist Sig nature Conjugated Bilirubin 0.0 0.0 - 0.3 mg/dl [facility] B Unconjugated Bilirubin 0.4 0.1 - 1.1 mg/dl [facility] Bilirubin, Total <0.5 0.0 - 1.4 mg/dl [facility] Specimen Performing Organization Address [facility]/ZIP [facility] Phon e Number [facility] [address] [place] [address] SERVICES [facility] [address] [place] [address] AST (06/10/2008 6:05 EDT) Pathologist Sig nature AST 29 23 - 58 U/L [facility] Specimen Performing Organization Address City/[facility]/ZIP Code Phon e Number [facility] [address] [place] [address] SERVICES [facility] [address] [place] [address] ALT (06/10/2008 6:05 EDT) Pathologist Sig nature ALT 24 10 - 25 U/L [facility] Specimen Performing Organization Address [facility]/ZIP Code Phon e Number [facility] [address] [place] [address] SERVICES [facility] [address] [place] [address] (ABNORMAL) ALKALINE PHOSPHATASE (06/10/2008 6:05 EDT) Pathologist Sig nature Alkaline Phosphatase 97 (L) 150 - 350 U/L [facility] Specimen Performing Organization Address [facility] Phon e Number [facility] [address] [place] [address] SERVICES [facility] [address] [place] [address] (ABNORMAL) CALCIUM (06/10/2008 6:05 EDT) Pathologist Sig nature Calcium 8.2 (L) 8.8 - 11.1 mg/dl [facility] Calculated Calcium 9.2 8.8 - 11.1 mg/dl [facility] Specimen Performing Organization Address [facility] Phon e Number [facility] [address] [place] [address] SERVICES [facility] [address] [place] [address] ELECTROLYTES (06/10/2008 6:05 EDT) Pathologist Sig nature Sodium 140 136 - 145 mEq/L [facility] Potassium 3.7 3.6 - 5.2 mEq/L [facility] Chloride 105 96 - 110 mEq/L [facility] CO2 30 24 - 32 mEq/L [facility] Specimen Performing Organization Address [facility]/ZIP Code Phon e Number [facility] [address] [place] [address] SERVICES [facility] [address] [place] [address] (ABNORMAL) HEMAGRAM AND DIFFERENTIAL (06/10/2008 6:00 EDT) WBC 4.93 4.5 - 13.5 [facility] K/cmm LAB RBC 2.99 (L) 4.00 - 6.20 [facility] M/cmm LAB Hemoglobin 9.2 (L) 11.5 - 15.5 [facility] gm/dl LAB HCT 25.4 (L) 35.0 - 45.0 % [facility] MCV 85 77 - 95 fl [facility] MCH 30.6 pg [facility] MCHC 36.0 gm/dl [facility] PLT 55 (L) 156 - 312 [facility] K/cmm LAB RDW-CV 13.5 % [facility] Neutrophils 11.0 % [facility] Bands 4.0 % [facility] Lymphocytes 51.0 % [facility] Monocytes 29.0 % [facility] Metamyelocytes 3.0 % [facility] Myelocytes 1.0 % [facility] Promyelocytes 1.0 % [facility] ABS Neutrophils 0.54 K/cmm [facility] ABS Bands 0.20 K/cmm [facility] ABS Lymphs 2.51 K/cmm [facility] ABS Monocytes 1.43 K/cmm [facility] ABS Metamyelocytes 0.15 K/cmm [facility] ABS Myelocytes 0.05 K/cmm [facility] ABS Promyelocytes 0.05 K/cmm [facility] RBC Morphology 1+ Anisocytosis [facility] 1+ Ovalocytes LAB 1+ Microcytes 1+ Teardrop cells Type of Diff: Manual [facility] Specimen Performing Organization Address City/State/ZIP Code Phon e Number [facility] [address] [place] [phone] SERVICES [facility] [address] [place] [address] BONE MARROW (06/10/2008 0:00 EDT) Pathology Report: BONE MARROW REPORT ? [facility] ? LAB Reports generated via electr onic interface contain original data; ? however they are lacking the format of the original report. ? Caution should be taken when reading/interpreting unformatted reports. ? Name: ? DIANA PERRIN ? Accession #: ? [id number] ? : ? 2000 (Age: 8) ??M ?Collect Date: ? 06/10/2008 ? Location: ? [facility] ? Receive Date: ? 06/10/2008 ? Provider: JULIET VOGT MD ? Copy to: ?ELIDA M PAT NO MD ? DIAGNOSIS: ? Peripheral blood: ? - Pancytopenia. ? Bone marrow: ? - Acute myeloid leukemia, tr eated. 1% blasts. ? TISSUE SUBMITTED: ? Bone marrow (site uns pecified): Aspirate. ? CLINICAL DATA: ? The patient is a [age]- year-old boy with AML, status post induction therapy. Patient is in COG study. ? PERIPHERAL BLOOD: ? (06/10/08): Hgb 9.2 g m/dl, ??Hct 25.4%, ??RBC 2.99 M/cmm, ??MCV 85 fl, ??MCH ?? 30.6 pg, ??MCHC 36.0 gm/dl, RDW 13.5%, WBC 4.93/cmm, ??with 11% neutrophils, ??4% ?? bands, 51% lymphocytes, 29% monocytes, 3% metamyelocytes, 1% myelocytes, 1% ? promyelocytes. ??Platelet co unt 55,000/cmm. ??Review of the peripheral smear ? confirms the above findings. ? BONE MARROW: ? Biopsy (decalcified): ?? None submitted. ? Clot section: ??None submitt ed. ? Smears: ??Particulate and hy percellular. ? Imprints: ??None submitted. ? Granulopoiesis: ?Maturing with mild cytologic change including ? nuclear to cytoplasmic async hrony. ? Erythropoiesis: ?Maturing with mild cytologic change including nuclear ?? to cytoplasmic asynchrony at late-stage forms. ? Megakaryocytes: ? Modera te; spectrum of typical forms. ? Other Cells: ? Moderate lymphocytes, rare plasma cells, few ? monocytes/histiocytes. ? Hemosiderin (smears): ?? Not performed. ? 500 cell differential count: ? Late g ranulocytes ?38% ?Early granulo cytes ?16% ?Erythroid ser ies ? 28% ?Lymphocytes ? 15% ?Monocytes/his tiocytes ?1% ?Plasma cells ? <1% ?BLASTS ? 1% ?Total ?? 100% ? (Dr. Wally Ponce)/kak ? SPECIAL STUDIES: ? Flow cytometry ([id number]): Mixed hematopoietic elements; no leukemic ? myeloblasts detected (see se abrahame Immunopathology report). ? Document reviewed and electr onically signed by: ? Marty Iglesias, MD ? Report Date: ??2007 11:20 ? By the signature above, the attending physician certifies that he/she has ? personally conducted a gross and/or microscopic examination of the described ? specimens and rendered or co nfirmed the above diagnosis. ? End of Report ? Specimen Performing Organization Address City/State/ZIP Code Phon e Number [facility] [address] [place] [address] SERVICES [facility] [address] [place] [phone] ECHOCARDIOGRAM (06/09/2008 14:50 EDT) Specimen Narrative [facility] - 04/23/2009 12 :57 EDT pre chemo Site Location: Date of Appt: May, 2 :50 PM Pediatric Echocardiogram Report Demographics and Visit Data: : 2000. ??Age: 8y/1m/6d. ??BSA ( m 2): 0.93. ??Height (cm): 124. Weight (kg): 25. ??BMI (kg/m 2): 16.26. ??Patient location: [place] [address]. Height Centile: 93.32. ??Weight Centile: 91.45. ??Person requesting test: JULIET MUÑOZ MD. Intelligence Agent: Shaunna Demarco. ??Reason for test: pre chemo. Referral diagnosis: leukemia : baseline echocardiogram pre chemotherapy. Procedure Description: 2D ECHOCARDIOGRAM W/WO M-MODE. Summary: Status post adriamycin therapy. Normal left ventricular size, wall thick ness and systolic function. No significant mitral regurgitation or a ortic regurgitation. No intracardiac masses seen. Compared with last study, no significant change. Atrial Situs: Solitus Ventricular Situs: D - Looped Arterial Situs: Solitus Findings: Veins and Atria: (No abnormalities seen) A-V Canal: >> Mitral regurgitation, ruled out No significant mitral regurgitation. Ventricles: >> Global left ventricular dysfunction, ruled out Normal left ventricular size, wall thick ness and systolic function. >> Left ventricular dilation or enlargem ent, ruled out >> Normal LV Wall Motion >> Normal Right Ventricle Conotruncus: >> Aortic regurgitation, ruled out No significant aortic regurgitation seen . >> Normal Pulmonary Valve Great Arteries: >> Normal Aorta >> Normal Aortic Arch Pericardium: (No abnormalities seen) Other: >> S/p adriamycin therapy >> Intracardiac mass, ruled out No intracardiac mass or thrombus seen. Measures: M-Mode: Name ? Value ?Units ?Z-Score ?Min ?Max LV Diastolic Septal Thickness ? 0.73 ? cm ? 0.19 ?0.52 ?0.97 LV Diastolic Dimension ? 4.20 ? cm ? 1.44 ?3.18 ?4.39 LV Diastolic Wall Thickness ? 0.66 ? cm ? -0.2 ?0.53 ?0.87 LV Systolic Dimension ? 2.65 ? cm ? 0.88 ?1.97 ?2.97 LV Fractional Shortening ? 36.90 ?% ?0.74 ?30.25 ?? 39.92 LV Systolic Function: Name ? Value ?Units ?Z-Score ?Min ?Max Endocardial FS ? 36.90 ?% ?0.74 ?30.25 ?? 39.92 FS Vs Stress ? 36.90 ?% Cardiac Geometry: Name ? Value ?Units ?Z-Score ?Min ?Max M-Mode LV Mass ? 84.29 ?g ?0.9 ? 47.42 ?? 104.36 M-Mode LV Mass Index ? 90.63 ?g/m 2 LV Midwall Diastolic Dimension ? 4.86 ? cm M-Mode LV Mass / Height ? 67.98 ?g/m M-Mode LV Mass / Height 2.7 ? 47.16 ?g/m ?19.4 ?38.6 Aorta: Name ? Value ?Units ?Z-Score ?Min ?Max Ao Annulus Diameter ? 1.52 ? cm ? 0.38 ?1.19 ?1.75 Ao Root Diameter ? 2.04 ? cm ? 0.55 ?1.5 ? 2.35 AV Area (using Diameter) ? 1.81 ? cm 2 Sinotubular Junction Diameter ? 1.74 ? cm ? 0.58 ?1.28 ?1.99 Ascending Ao Diameter ? 1.85 ? cm ? 1.03 ?1.3 ? 2.02 Analysis Aortic Valve Doppler: Name ? Value ?Units AV Area (using Diameter) ? 1.81 ? cm 2 [place]'s Name: DUGLAS HOSKINS MD Date/time of reading: Jun 10 2008 - 8:20:13 AM Report created at 8:22:01 AM on Tuesday, June 10, 2008 Procedure Note Duglas Hoskins MD - 04/23/2009 pre chemo Site Location: Date of Appt: May, 2 :50 PM Pediatric Echocardiogram Report Demographics and Visit Data: : 2000. Age: 8y/1m/6d. BSA (m 2) : 0.93. Height (cm): 124. Weight (kg): 25. BMI (kg/m 2): 16.26. [facility] location: [place] [address]. Height Centile: 93.32. Weight Centile: 9 1.45. Person requesting test: JULIET MUÑOZ MD. Intelligence Agent: Shaunna Demarco. Reason for te st: pre chemo. Referral diagnosis: leukemia : baseline echocardiogram pre chemotherapy. Procedure Description: 2D ECHOCARDIOGRAM W/WO M-MODE. Summary: Status post adriamycin therapy. Normal left ventricular size, wall thick ness and systolic function. No significant mitral regurgitation or a ortic regurgitation. No intracardiac masses seen. Compared with last study, no significant change. Atrial Situs: Solitus Ventricular Situs: D - Looped Arterial Situs: Solitus Findings: Veins and Atria: (No abnormalities seen) A-V Canal: >> Mitral regurgitation, ruled out No significant mitral regurgitation. Ventricles: >> Global left ventricular dysfunction, ruled out Normal left ventricular size, wall thick ness and systolic function. >> Left ventricular dilation or enlargem ent, ruled out >> Normal LV Wall Motion >> Normal Right Ventricle Conotruncus: >> Aortic regurgitation, ruled out No significant aortic regurgitation seen . >> Normal Pulmonary Valve Great Arteries: >> Normal Aorta >> Normal Aortic Arch Pericardium: (No abnormalities seen) Other: >> S/p adriamycin therapy >> Intracardiac mass, ruled out No intracardiac mass or thrombus seen. Measures: M-Mode: Name Value Units Z-Score Min Max LV Diastolic Septal Thickness 0.73 cm 0.19 0.52 0.97 LV Diastolic Dimension 4.20 cm 1.44 3.18 4.39 LV Diastolic Wall Thickness 0.66 cm -0.2 0.53 0.87 LV Systolic Dimension 2.65 cm 0.88 1.97 2.97 LV Fractional Shortening 36.90 % 0.74 30.25 39.92 LV Systolic Function: Name Value Units Z-Score Min Max Endocardial FS 36.90 % 0.74 30.25 39.92 FS Vs Stress 36.90 % Cardiac Geometry: Name Value Units Z-Score Min Max M-Mode LV Mass 84.29 g 0.9 47.42 104.36 M-Mode LV Mass Index 90.63 g/m 2 LV Midwall Diastolic Dimension 4.86 cm M-Mode LV Mass / Height 67.98 g/m M-Mode LV Mass / Height 2.7 47.16 g/m 19.4 38.6 Aorta: Name Value Units Z-Score Min Max Ao Annulus Diameter 1.52 cm 0.38 1.19 1.75 Ao Root Diameter 2.04 cm 0.55 1.5 2.35 AV Area (using Diameter) 1.81 cm 2 Sinotubular Junction Diameter 1.74 cm 0.58 1.28 1.99 Ascending Ao Diameter 1.85 cm 1.03 1.3 2.02 Analysis Aortic Valve Doppler: Name Value Units AV Area (using Diameter) 1.81 cm 2 [place]'s Name: ALFREDO PAINTING,DUGLAS Juarez Date/time of reading: Jun 10 2008 - 8:20:13 AM Report created at 8:22:01 AM on Tuesday, June 10, 2008 Performing Organization Address City/State/ZIP Code Phon e Number [facility] [address] [facility] [address] [facility] [address] [place], [place] [address] (ABNORMAL) HEMAGRAM AND DIFFERENTIAL (06/09/2008 6:00 EDT) WBC 2.50 (L) 4.5 - 13.5 [facility] K/cmm LAB RBC 3.43 (L) 4.00 - 6.20 [facility] M/cmm LAB Hemoglobin 10.5 (L) 11.5 - 15.5 [facility] gm/dl LAB HCT 28.7 (L) 35.0 - 45.0 [facility] % LAB MCV 84 77 - 95 fl [facility] MCH 30.5 pg [facility] MCHC 36.4 gm/dl [facility] PLT 36 (L) 156 - 312 [facility] K/cmm LAB RDW-CV 12.2 % [facility] Neutrophils 7.0 % [facility] Bands 3.0 % [facility] Lymphocytes 44.0 % [facility] Monocytes 38.0 % [facility] Metamyelocytes 5.0 % [facility] Myelocytes 3.0 % [facility] ABS Neutrophils 0.18 (LL) K/cmm [facility] ABS Bands 0.08 K/cmm [facility] ABS Lymphs 1.08 K/cmm [facility] ABS Monocytes 0.95 K/cmm [facility] ABS Metamyelocytes 0.13 K/cmm [facility] ABS Myelocytes 0.08 K/cmm [facility] RBC Morphology 1+ Anisocytosis [facility] Comment Reviewed by Dr. DARRIAN Brock LAB Type of Diff: Manual [facility] Specimen Performing Organization Address City/[facility]/ZIP Code Phon e Number [facility] [address] [place] [address] SERVICES [facility] [address] [place] [address] MAGNESIUM (06/09/2008 6:00 EDT) Pathologist Sig nature Magnesium 1.9 1.7 - 2.8 mg/dl [facility] Specimen Performing Organization Address City/[facility]/ZIP Code Phon e Number [facility] [address] [place] [address] SERVICES [facility] [address] [place] [address] CREATININE (06/09/2008 6:00 EDT) Pathologist Sig nature Creatinine 0.40 0.1 - 0.7 mg/dl [facility] GFR, Calculated Age <18 ml/min/1.73m2 [facility] Specimen Performing Organization Address City/[facility]/ZIP Code Phon e Number [facility] [address] [place] [address] SERVICES [facility] [address] [place] [address] (ABNORMAL) BUN (06/09/2008 6:00 EDT) Pathologist Sig nature BUN 6 (L) 7 - 18 mg/dl [facility] Specimen Performing Organization Address City/[facility]/ZIP Code Phon e Number [facility] [address] [place] [address] SERVICES [facility] [address] [place] [address] TOTAL & DIRECT BILIRUBIN (06/09/2008 6:00 EDT) Pathologist Sig nature Conjugated Bilirubin 0.0 0.0 - 0.3 mg/dl [facility] LA B Unconjugated Bilirubin 0.5 0.1 - 1.1 mg/dl [facility] Bilirubin, Total <0.5 0.0 - 1.4 mg/dl [facility] Specimen Performing Organization Address City/[facility]/ZIP Code Phon e Number [facility] [address] [place] [address] SERVICES [facility] [address] [place] [address] AST (06/09/2008 6:00 EDT) Pathologist Sig nature AST 23 23 - 58 U/L [facility] Specimen Performing Organization Address City/[facility]/ZIP Code Phon e Number [facility] [address] [place] [address] SERVICES [facility] [address] [place] [address] ALT (06/09/2008 6:00 EDT) Pathologist Sig nature ALT 21 10 - 25 U/L [facility] Specimen Performing Organization Address City/[facility]/ZIP Code Phon e Number [facility] [address] [place] [address] SERVICES [facility] [address] [place] [address] (ABNORMAL) ALKALINE PHOSPHATASE (06/09/2008 6:00 EDT) Pathologist Sig nature Alkaline Phosphatase 90 (L) 150 - 350 U/L [facility] Specimen Performing Organization Address City/[facility]/ZIP Code Phon e Number [facility] [address] [place] [address] SERVICES [facility] [address] [place] [address] (ABNORMAL) CALCIUM (06/09/2008 6:00 EDT) Pathologist Sig nature Calcium 7.6 (L) 8.8 - 11.1 mg/dl [facility] Calculated Calcium 9.1 8.8 - 11.1 mg/dl [facility] Specimen Performing Organization Address [facility]/ZIP Code Phon e Number [facility] [address] [place] [address] SERVICES [facility] [address] [place] [address] ELECTROLYTES (06/09/2008 6:00 EDT) Pathologist Sig nature Sodium 141 136 - 145 mEq/L [facility] Potassium 3.7 3.6 - 5.2 mEq/L [facility] Chloride 106 96 - 110 mEq/L [facility] CO2 29 24 - 32 mEq/L [facility] Specimen Performing Organization Address [facility] Phon e Number [facility] [address] [place] [address] SERVICES [facility] [address] [place] [address] VANCOMYCIN TROUGH (06/08/2008 18:00 EDT) Pathologist Sig nature Vancomycin Trough 8.4 ug/ml [facility] Vancomycin Dose Start Not Given [facility] Date Vancomycin Dose Start Not Given [facility] Time Specimen Performing Organization Address [facility]/ZIP Code Phon e Number [facility] [address] [place] [address] SERVICES [facility] [address] [place] [address] (ABNORMAL) HEMAGRAM AND DIFFERENTIAL (06/08/2008 6:05 EDT) WBC 2.09 (L) 4.5 - 13.5 [facility] K/cmm LAB RBC 2.31 (L) 4.00 - 6.20 [facility] M/cmm LAB Hemoglobin 7.1 (L) 11.5 - 15.5 [facility] gm/dl LAB HCT 19.5 (LL) 35.0 - 45.0 [facility] % LAB MCV 84 77 - 95 fl [facility] MCH 30.7 pg [facility] MCHC 36.4 gm/dl [facility] PLT 36 (L) 156 - 312 [facility] K/cmm LAB RDW-CV 13.1 % [facility] Neutrophils 12.0 % [facility] Lymphocytes 62.0 % [facility] Monocytes 23.0 % [facility] Metamyelocytes 3.0 % [facility] ABS Neutrophils 0.25 (LL) K/cmm [facility] ABS Lymphs 1.30 K/cmm [facility] ABS Monocytes 0.48 K/cmm [facility] ABS Metamyelocytes 0.06 K/cmm [facility] RBC Morphology 1+ Hypochromia [facility] 1+ Poikilocytosis LAB 1+ Ovalocytes Comment Reviewed by Dr. DARRIAN Brock LAB Type of Diff: Manual [facility] Specimen Performing Organization Address City/[facility]/ZIP Code Phon e Number [facility] [address] [place] [address] SERVICES [facility] [address] [place] [address] MAGNESIUM (06/08/2008 6:05 EDT) Pathologist Sig nature Magnesium 1.9 1.7 - 2.8 mg/dl [facility] Specimen Performing Organization Address City/[facility]/ZIP Code Phon e Number [facility] [address] [place] [address] SERVICES [facility] [address] [place] [address] CREATININE (06/08/2008 6:05 EDT) Pathologist Sig nature Creatinine 0.30 0.1 - 0.7 mg/dl [facility] GFR, Calculated Age <18 ml/min/1.73m2 [facility] Specimen Performing Organization Address City/[facility]/ZIP Code Phon e Number [facility] [address] [place] [address] SERVICES [facility] [address] [place] [address] (ABNORMAL) BUN (06/08/2008 6:05 EDT) Pathologist Sig nature BUN 5 (L) 7 - 18 mg/dl [facility] Specimen Performing Organization Address City/[facility]/ZIP Code Phon e Number [facility] [address] [place] [address] SERVICES [facility] [address] [place] [address] (ABNORMAL) CALCIUM (06/08/2008 6:05 EDT) Pathologist Sig nature Calcium 7.7 (L) 8.8 - 11.1 mg/dl [facility] Calculated Calcium 9.1 8.8 - 11.1 mg/dl [facility] Specimen Performing Organization Address [facility] Phon e Number [facility] [address] [place] [address] SERVICES [facility] [address] [place] [address] ELECTROLYTES (06/08/2008 6:05 EDT) Pathologist Sig nature Sodium 140 136 - 145 mEq/L [facility] Potassium 3.8 3.6 - 5.2 mEq/L [facility] Chloride 107 96 - 110 mEq/L [facility] CO2 27 24 - 32 mEq/L [facility] Specimen Performing Organization Address [facility] Phon e Number [facility] [address] [place] [address] SERVICES [facility] [address] [place] [address] LEGIONELLA ANTIGEN DETECTION, URINE (06/07/2008 7:10 EDT) Specimen Urine [facility] Description LAB Result No Legionella [facility] pneumophilia LAB serogroup 1 antigen detected. Report Status Final [facility] [id number] LAB Specimen Performing Organization Address [facility] Phon e Number [facility] [address] [place] [address] SERVICES [facility] [address] [place] [address] (ABNORMAL) DIFFERENTIAL (06/07/2008 6:00 EDT) Pathologist Sig nature Neutrophils 8.0 % [facility] Lymphocytes 77.0 % [facility] Monocytes 15.0 % [facility] ABS Neutrophils 0.12 (LL) K/cmm [facility] ABS Lymphs 1.11 K/cmm [facility] ABS Monocytes 0.22 K/cmm [facility] RBC Morphology 1+ Anisocytosis [facility] Type of Diff: Manual [facility] Specimen Performing Organization Address [facility] Phon e Number [facility] [address] [place] [address] SERVICES [facility] [address] [place] [address] TESTS ADDED BY PHONE (06/07/2008 6:00 EDT) Pathologist Sig nature Tests to be added DIFF DARRIAN MUSA Who Called DR. NIMA MUSA Location Code B5 [facility] Specimen Performing Organization Address City/[facility]/ZIP Code Phon e Number [facility] [address] [place] [address] SERVICES [facility] [address] [place] [address] SLIDE REQUEST (06/07/2008 6:00 EDT) Pathologist Sig nature Note A smear is filed in the [facility] LA B Hematology lab Specimen Performing Organization Address [facility]/ZIP Code Phon e Number [facility] [address] [place] [address] SERVICES [facility] [address] [place] [address] (ABNORMAL) HEMAGRAM (06/07/2008 6:00 EDT) Pathologist Sig nature WBC 1.45 (L) 4.5 - 13.5 K/cmm [facility] RBC 2.34 (L) 4.00 - 6.20 M/cmm [facility] Hemoglobin Not Available 11.5 - 15.5 gm/dl [facility] HCT 19.6 (LL) 35.0 - 45.0 % [facility] MCV 84 77 - 95 fl [facility] MCH Not calculated pg [facility] MCHC Not calculated gm/dl [facility] PLT 36 (L) 156 - 312 K/cmm [facility] RDW-CV 13.1 % [facility] Specimen Performing Organization Address City/[facility]/ZIP Code Phon e Number [facility] [address] [place] [address] SERVICES [facility] [address] [place] [address] CYTOMEGALOVIRUS (CMV) BY RAPID PCR (06/07/2008 6:00 EDT) Specimen Source Blood [facility] Result [facility] Negative ? LAB Report Status DARRIAN SHELDON [id number] ? LAB Analyte Specific Reagent ? This test was developed and its performance characteristics ? determined by Laboratory Med [facility] Pathology, [facility]. This test has not be en cleared or ? approved by the [place] Food an d Drug Administration. ? Performed or Referred by: [facility] Dpt of Lab Med and Path, [address] , [place] [address], Lab Dir: Ricci Ng III, ? MD ? Specimen Performing Organization Address City/State/ZIP Code Phon e Number [facility] [address] [place] [address] SERVICES [facility] [address] [place] [address] FUNGUS CULTURE, BLOOD (06/06/2008 4:18 EDT) Specimen Description Blood [facility] Isolator tube received Result No fungi isolated [facility] Report Status Final [facility] [id number] Specimen Performing Organization Address City/[facility]/ZIP Code Phon e Number [facility] [address] [place] [address] SERVICES [facility] [address] [place] [address] BACTERIAL CULTURE, BLOOD (06/06/2008 4:18 EDT) Specimen Description Blood [facility] Pediatric bottle received white port Result No growth [facility] Report Status Final [facility] [id number] Specimen Performing Organization Address City/[facility]/ZIP Code Phon e Number [facility] [address] [place] [address] SERVICES [facility] [address] [place] [address] FUNGUS CULTURE, BLOOD (06/06/2008 4:16 EDT) Specimen Description Blood [facility] Isolator tube received Red Port Result No fungi isolated [facility] Report Status Final [facility] [id number] Specimen Performing Organization Address City/[facility]/ZIP Code Phon e Number [facility] [address] [place] [address] SERVICES [facility] [address] [place] [address] BACTERIAL CULTURE, BLOOD (06/06/2008 4:16 EDT) Specimen Description Blood [facility] Pediatric bottle received Volume of blood collected ma y not be adequate for detection of bacteremia/septicemia. RED PORT Result No growth [facility] Report Status Final [facility] [id number] Specimen Performing Organization Address City/[facility]/ZIP Code Phon e Number [facility] [address] [place] [address] SERVICES [facility] [address] [place] [address] (ABNORMAL) HEMAGRAM AND DIFFERENTIAL (06/06/2008 4:05 EDT) WBC 1.31 (L) 4.5 - 13.5 [facility] K/cmm RBC 2.47 (L) 4.00 - 6.20 [facility] M/cmm Hemoglobin 7.6 (L) 11.5 - 15.5 [facility] gm/dl HCT 20.7 (LL) 35.0 - 45.0 % [facility] LAB MCV 84 77 - 95 fl [facility] MCH 30.7 pg [facility] MCHC 36.5 gm/dl [facility] PLT 46 (L) 156 - 312 K/cmm [facility] RDW-CV 12.8 % [facility] Neutrophils 2.0 % [facility] Lymphocytes 91.0 % [facility] Monocytes 7.0 % [facility] ABS Neutrophils 0.03 (LL) K/cmm [facility] ABS Lymphs 1.19 K/cmm [facility] ABS Monocytes 0.09 K/cmm [facility] RBC Morphology 1+ Anisocytosis [facility] 1+ Microcytes Type of Diff: Manual [facility] Specimen Performing Organization Address City/[facility]/ZIP Code Phon e Number [facility] [address] [place] [address] SERVICES [facility] [address] [place] [address] CREATININE (06/06/2008 4:05 EDT) Pathologist Sig nature Creatinine 0.50 0.1 - 0.7 mg/dl [facility] GFR, Calculated Age <18 ml/min/1.73m2 [facility] Specimen Performing Organization Address [facility]/ZIP Code Phon e Number [facility] [address] [place] [address] SERVICES [facility] [address] [place] [address] (ABNORMAL) BUN (06/06/2008 4:05 EDT) Pathologist Sig nature BUN 5 (L) 7 - 18 mg/dl [facility] Specimen Performing Organization Address [facility]/ZIP [facility] Phon e Number [facility] [address] [place] [address] SERVICES [facility] [address] [place] [address] TOTAL & DIRECT BILIRUBIN (06/06/2008 4:05 EDT) Pathologist Sig nature Conjugated Bilirubin 0.0 0.0 - 0.3 mg/dl [facility] LA B Unconjugated Bilirubin 0.6 0.1 - 1.1 mg/dl [facility] Bilirubin, Total 0.5 0.0 - 1.4 mg/dl [facility] Specimen Performing Organization Address [facility]/ZIP Code Phon e Number [facility] [address] [place] [address] SERVICES [facility] [address] [place] [address] AST (06/06/2008 4:05 EDT) Pathologist Sig nature AST 32 23 - 58 U/L [facility] Specimen Performing Organization Address City/[facility]/ZIP [facility] Phon e Number [facility] [address] [place] [address] SERVICES [facility] [address] [place] [address] (ABNORMAL) ALT (06/06/2008 4:05 EDT) Pathologist Sig nature ALT 26 (H) 10 - 25 U/L [facility] Specimen Performing Organization Address City/[facility]/ZIP Code Phon e Number [facility] [address] [place] [address] SERVICES [facility] [address] [place] [address] (ABNORMAL) ALKALINE PHOSPHATASE (06/06/2008 4:05 EDT) Pathologist Sig nature Alkaline Phosphatase 90 (L) 150 - 350 U/L [facility] Specimen Performing Organization Address [facility]/ZIP Code Phon e Number [facility] [address] [place] [address] SERVICES [facility] [address] [place] [address] ELECTROLYTES (06/06/2008 4:05 EDT) Pathologist Sig nature Sodium 136 136 - 145 mEq/L [facility] Potassium 3.9 3.6 - 5.2 mEq/L [facility] Chloride 101 96 - 110 mEq/L [facility] CO2 29 24 - 32 mEq/L [facility] Specimen Performing Organization Address [facility]/ZIP Code Phon e Number [facility] [address] [place] [address] SERVICES [facility] [address] [place] [address] (ABNORMAL) HEMAGRAM AND DIFFERENTIAL (06/05/2008 4:00 EDT) WBC 1.15 (L) 4.5 - 13.5 [facility] K/cmm LAB RBC 2.79 (L) 4.00 - 6.20 [facility] M/cmm LAB Hemoglobin 8.6 (L) 11.5 - 15.5 [facility] gm/dl LAB HCT 23.8 (L) 35.0 - 45.0 % [facility] LAB MCV Not calculated 77 - 95 fl [facility] MCH 30.9 pg [facility] LAB MCHC 36.2 gm/dl [facility] LAB PLT 9 (LL) 156 - 312 [facility]ESJESSICA [facility] K/cmm LAB RDW-CV 13.4 % [facility] Neutrophils 3.0 % [facility] Lymphocytes 91.0 % [facility] Atyp Lymphs 1.0 % [facility] Monocytes 5.0 % [facility] ABS Neutrophils 0.03 (LL) K/cmm [facility] ABS Lymphs 1.05 K/cmm [facility] ABS Atyp Lymphs 0.01 K/cmm [facility] ABS Monocytes 0.06 K/cmm [facility] LAB RBC Morphology 1+ Poikilocytosis [facility] 1+ Ovalocytes LAB WBC Morphology 1+ Toxic granulation [facility] 1+ Dohle bodies LAB Type of Diff: Manual [facility] Comment Reviewed by Dr. Vinod MUSA Specimen Performing Organization Address City/[facility]/ZIP Code Phon e Number [facility] [address] [place] [address] SERVICES [facility] [address] [place] [address] FUNGUS CULTURE, BLOOD (06/05/2008 4:00 EDT) Specimen Description Blood [facility] LAB Isolator tube received Pediatric tube from red port Result Scanty specimen [facility] LAB No fungi isolated Report Status Final [facility] [id number] Specimen Performing Organization Address City/[facility]/ZIP Code Phon e Number [facility] [address] [place] [address] SERVICES [facility] [address] [place] [address] FUNGUS CULTURE, BLOOD (06/05/2008 4:00 EDT) Pathologist [facility] [place] Specimen Description Blood [facility] LAB Isolator tube received Pediatric tube from white port Result Scanty specimen D[facility] LAB No fungi isolated Report Status Final [facility] [id number] Specimen Performing Organization Address [facility] Phon e Number [facility] [address] [place] [address] SERVICES [facility] [address] [place] [address] BACTERIAL CULTURE, BLOOD (06/05/2008 4:00 EDT) Pathologist [facility] [place] Specimen Description Blood [facility] Red Pediatric bottle received Volume of blood collected ma y not be adequate for detection of bacteremia/septicemia. Result No growth [facility] LAB Report Status Final [facility] [id number] Specimen Performing Organization Address [facility] Phon e Number [facility] [address] [place] [address] SERVICES [facility] [address] [place] [address] BACTERIAL CULTURE, BLOOD (06/05/2008 4:00 EDT) Pathologist [facility] [place] Specimen Description Blood [facility] White Pediatric bottle received Volume of blood collected ma y not be adequate for detection of bacteremia/septicemia. Result No growth [facility] Report Status Final [facility] [id number] Specimen Performing Organization Address City/[facility] Phon e Number [facility] [address] [place] [address] SERVICES [facility] [address] [place] [address] (ABNORMAL) HEMAGRAM AND DIFFERENTIAL (06/04/2008 4:15 EDT) Pathologist [facility] [place] WBC 1.53 (L) 4.5 - 13.5 [facility] K/cmm RBC 3.17 (L) 4.00 - 6.20 [facility] M/cmm Hemoglobin Not Available 11.5 - 15.5 [facility] LAB gm/dl HCT 27.0 (L) 35.0 - 45.0 % [facility] LAB MCV 85 77 - 95 fl [facility] MCH Not calculated pg [facility] MCHC Not calculated gm/dl [facility] LAB PLT 12 (LL) 156 - 312 [facility] K/cmm RDW-CV 12.8 % [facility] Neutrophils 1.0 % [facility] Lymphocytes 98.0 % [facility] Monocytes 1.0 % [facility] ABS Neutrophils 0.02 (LL) K/cmm [facility] ABS Lymphs 1.49 K/cmm [facility] ABS Monocytes 0.02 K/cmm [facility] RBC Morphology 1+ Poikilocytosis [facility] Type of Diff: Manual [facility] Specimen Performing Organization Address [facility]/ZIP Code Phon e Number [facility] [address] [place] [address] SERVICES [facility] [address] [place] [address] CREATININE (06/04/2008 4:15 EDT) Pathologist [facility] Creatinine 0.41 0.1 - 0.7 mg/dl [facility] GFR, Calculated Age <18 ml/min/1.73m2 [facility] Specimen Performing Organization Address [facility] Phon e Number [facility] [address] [place] [address] SERVICES [facility] [address] [place] [address] (ABNORMAL) BUN (06/04/2008 4:15 EDT) Pathologist [facility] BUN 6 (L) 7 - 18 mg/dl [facility] Specimen Performing Organization Address [facility]/ZIP [facility] Ph[place] Number [facility] [address] [place] [address] SERVICES [facility] [address] [place] [address] ELECTROLYTES (06/04/2008 4:15 EDT) Pathologist [facility] Sodium 137 136 - 145 mEq/L [facility] Potassium 4.2 3.6 - 5.2 mEq/L [facility] Chloride 102 96 - 110 mEq/L [facility] CO2 27 24 - 32 mEq/L [facility] Specimen Performing Organization Address [facility]/ZIP [facility] Phon [place] Number [facility] [address] [place] [address] SERVICES [facility] [address] [place] [address] BACTERIAL CULTURE, BLOOD (06/04/2008 4:15 EDT) Specimen Description Blood [facility] Pediatric bottle received Result No growth [facility] Report Status Final [facility] [id number] Specimen Performing Organization Address [facility] Phon e Number [facility] [address] [place] [address] SERVICES [facility] [address] [place] [address] FUNGUS CULTURE, BLOOD (06/04/2008 4:15 EDT) Specimen Description Blood [facility] Isolator tube received Pediatric tube received Result Scanty specimen [facility] No fungi isolated Report Status Final [facility] [id number] Specimen Performing Organization Address [facility] Phon e Number [facility] [address] [place] [address] SERVICES [facility] [address] [place] [address] MAGNESIUM (06/03/2008 4:20 EDT) Pathologist Sig nature Magnesium 2.0 1.7 - 2.8 mg/dl [facility] Specimen Performing Organization Address [facility] Phon e Number [facility] [address] [place] [address] SERVICES [facility] [address] [place] [address] ELECTROLYTES (06/03/2008 4:20 EDT) Pathologist Sig nature Sodium 139 136 - 145 mEq/L [facility] Potassium 3.8 3.6 - 5.2 mEq/L [facility] Chloride 106 96 - 110 mEq/L [facility] CO2 27 24 - 32 mEq/L [facility] Specimen Performing Organization Address [facility] Phon e Number [facility] [address] [place] [address] SERVICES [facility] [address] [place] [address] (ABNORMAL) HEMAGRAM AND DIFFERENTIAL (06/03/2008 4:20 EDT) WBC 0.67 (LL) 4.5 - 13.5 [facility] K/cmm RBC 3.41 (L) 4.00 - 6.20 [facility] M/cmm Hemoglobin 10.6 (L) 11.5 - 15.5 [facility] gm/dl HCT 29.1 (L) 35.0 - 45.0 % [facility] MCV 85 77 - 95 fl [facility] MCH 31.1 pg [facility] MCHC 36.5 gm/dl [facility] PLT 18 (LL) 156 - 312 [facility] K/cmm RDW-CV 13.0 % [facility] Neutrophils 0.0 % [facility] Lymphocytes 96.0 % [facility] Atyp Lymphs 2.0 % [facility] Monocytes 2.0 % [facility] ABS Neutrophils 0.00 (LL) K/cmm [facility] ABS Lymphs 0.65 K/cmm [facility] ABS Atyp Lymphs 0.01 K/cmm [facility] ABS Monocytes 0.01 K/cmm [facility] RBC Morphology 1+ Poikilocytosis [facility] 1+ Target cells WBC Morphology 1+ Smudge cells [facility] Type of Diff: Manual [facility] Specimen Performing Organization Address City/[facility]/ZIP Code Phon e Number [facility] [address] [place] [address] SERVICES [facility] [address] [place] [address] BACTERIAL CULTURE, BLOOD (06/03/2008 4:20 EDT) Specimen Description Blood [facility] Red Pediatric bottle received Result No growth [facility] Report Status Final [facility] [id number] Specimen Performing Organization Address City/[facility]/ZIP [facility] Phon e Number [facility] [address] [place] [address] SERVICES [facility] [address] [place] [address] BACTERIAL CULTURE, BLOOD (06/03/2008 4:20 EDT) Specimen Description Blood [facility] White (Non-) Pediatric bottle received Result No growth [facility] Report Status Final [facility] [id number] Specimen Performing Organization Address City/[facility]/ZIP [facility] Phon e Number [facility] [address] [place] [address] SERVICES [facility] [address] [place] [address] FUNGUS CULTURE, BLOOD (06/03/2008 4:20 EDT) Specimen Description Blood [facility] Red Small Isolator tube received Result No fungi isolated [facility] Report Status Final [facility] [id number] Specimen Performing Organization Address City/[facility]/ZIP Code Phon e Number [facility] [address] [place] [address] SERVICES [facility] [address] [place] [address] FUNGUS CULTURE, BLOOD (06/03/2008 4:20 EDT) Specimen Description Blood [facility] [place] small isolator received Result No fungi isolated [facility] Report Status Final [facility] [id number] Specimen Performing Organization Address [facility]/ZIP [facility] Phon e Number [facility] [address] [place] [address] SERVICES [facility] [address] [place] [address] (ABNORMAL) HEMAGRAM AND DIFFERENTIAL (06/02/2008 6:00 EDT) WBC 0.86 (LL) 4.5 - 13.5 [facility] K/cmm RBC 2.51 (L) 4.00 - 6.20 [facility] M/cmm Hemoglobin Not Available 11.5 - 15.5 [facility] gm/dl HCT 19.0 (LL) 35.0 - 45.0 % [facility] MCV Not calculated 77 - 95 fl [facility] MCH Not calculated pg [facility] MCHC Not calculated gm/dl [facility] PLT 47 (L) 156 - 312 [facility] K/cmm RDW-CV 12.6 % [facility] Neutrophils 0.0 % [facility] Lymphocytes 100.0 % [facility] ABS Neutrophils 0.00 (LL) K/cmm [facility] ABS Lymphs 0.86 K/cmm [facility] RBC Morphology 1+ Poikilocytosis [facility] 1+ Ovalocytes Type of Diff: Manual [facility] Specimen Performing Organization Address City/[facility]/ZIP Code Phon e Number [facility] [address] [place] [address] SERVICES [facility] [address] [place] [address] BACTERIAL CULTURE, BLOOD (06/02/2008 4:31 EDT) Specimen Description Blood [facility] Pediatric bottle received white lumen Result No growth [facility] Report Status Final [facility] [id number] Specimen Performing Organization Address [facility]/ZIP Code Phon e Number [facility] [address] [place] [address] SERVICES [facility] [address] [place] [address] FUNGUS CULTURE, BLOOD (06/02/2008 4:31 EDT) Specimen Description Blood [facility] Isolator tube received Pediatric bottle received white lumen Result No fungi isolated [facility] Report Status Final [facility] [id number] Specimen Performing Organization Address City/[facility]/ZIP Code Phon e Number [facility] [address] [place] [address] SERVICES [facility] [address] [place] [address] PHOSPHORUS (06/02/2008 4:30 EDT) Pathologist Sig nature Phosphorus 5.0 4.1 - 5.4 mg/dl [facility] Specimen Performing Organization Address City/[facility]/ZIP Code Phon e Number [facility] [address] [place] [address] SERVICES [facility] [address] [place] [address] CREATININE (06/02/2008 4:30 EDT) Pathologist Sig nature Creatinine 0.38 0.1 - 0.7 mg/dl [facility] GFR, Calculated Age <18 ml/min/1.73m2 [facility] Specimen Performing Organization Address City/[facility]/ZIP Code Phon e Number [facility] [address] [place] [address] SERVICES [facility] [address] [place] [address] BUN (06/02/2008 4:30 EDT) Pathologist Sig nature BUN 8 7 - 18 mg/dl [facility] Specimen Performing Organization Address City/[facility]/ZIP Code Phon e Number [facility] [address] [place] [address] SERVICES [facility] [address] [place] [address] TOTAL & DIRECT BILIRUBIN (06/02/2008 4:30 EDT) Pathologist Sig nature Conjugated Bilirubin 0.0 0.0 - 0.3 mg/dl [facility] B Unconjugated Bilirubin 0.5 0.1 - 1.1 mg/dl [facility] Bilirubin, Total <0.5 0.0 - 1.4 mg/dl [facility] Specimen Performing Organization Address [facility] Phon e Number [facility] [address] [place] [address] SERVICES [facility] [address] [place] [address] AST (06/02/2008 4:30 EDT) Pathologist Sig nature AST 43 23 - 58 U/L [facility] Specimen Performing Organization Address [facility] Phon e Number [facility] [address] [place] [address] SERVICES [facility] [address] [place] [address] ALT (06/02/2008 4:30 EDT) Pathologist Sig nature ALT 11 10 - 25 U/L [facility] Specimen Performing Organization Address [facility] Phon e Number [facility] [address] [place] [address] SERVICES [facility] [address] [place] [address] (ABNORMAL) ALKALINE PHOSPHATASE (06/02/2008 4:30 EDT) Pathologist Sig nature Alkaline Phosphatase 113 (L) 150 - 350 U/L [facility] Specimen Performing Organization Address [facility] Phon e Number [facility] [address] [place] [address] SERVICES [facility] [address] [place] [address] ELECTROLYTES (06/02/2008 4:30 EDT) Pathologist Sig nature Sodium 137 136 - 145 mEq/L [facility] Potassium 4.2 3.6 - 5.2 mEq/L [facility] Chloride 102 96 - 110 mEq/L [facility] CO2 28 24 - 32 mEq/L [facility] Specimen Performing Organization Address [facility]/ZIP [facility] Phon e Number [facility] [address] [place] [address] SERVICES [facility] [address] [place] [address] BACTERIAL CULTURE, BLOOD (06/02/2008 4:30 EDT) Specimen Description Blood [facility] Pediatric bottle received red lumen Result No growth [facility] Report Status Final [facility] [id number] Specimen Performing Organization Address City/State/ZIP Code Phon e Number [facility] [address] [place] [address] SERVICES [facility] [address] [place] [address] FUNGUS CULTURE, BLOOD (06/02/2008 4:30 EDT) Specimen Description Blood [facility] Isolator tube received Pediatric bottle received Result No fungi isolated [facility] Report Status Final [facility] [id number] Specimen Performing Organization Address City/State/ZIP Code Phon e Number [facility] [address] [place] [address] SERVICES [facility] [address] [place] [address] BACTERIAL CULTURE, BLOOD (06/01/2008 18:20 EDT) Pathologist Sig nature Specimen Description Blood [facility] Red Lumen Result No growth [facility] Report Status Final [facility] [id number] Specimen Performing Organization Address City/[facility]/ZIP Code Phon e Number [facility] [address] [place] [address] SERVICES [facility] [address] [place] [address] BACTERIAL CULTURE, BLOOD (06/01/2008 18:20 EDT) Pathologist Sig nature Specimen Description Blood [facility] White Lumen Result No growth [facility] Report Status Final [facility] [id number] Specimen Performing Organization Address City/[facility]/ZIP Code Phon e Number [facility] [address] [place] [address] SERVICES [facility] [address] [place] [address] FUNGUS CULTURE, BLOOD (06/01/2008 18:20 EDT) Specimen Description Blood [facility] Red Lumen Result No fungi isolated [facility] Report Status Final [facility] [id number] Specimen Performing Organization Address City/[facility]/ZIP Code Phon e Number [facility] [address] [place] [address] SERVICES [facility] [address] [place] [address] FUNGUS CULTURE, BLOOD (06/01/2008 18:20 EDT) Specimen Description Blood [facility] white lumen Result No fungi isolated [facility] Report Status Final [facility] [id number] Specimen Performing Organization Address City/State/ZIP Code Phon e Number [facility] [address] [place] [address] SERVICES [facility] [address] [place] [address] CT ABDOMEN, PELVIS W CONTRAST (06/01/2008 13:58 EDT) Anatomical Region Laterality Modality Other Specimen Narrative [facility] - 04/23/2009 11 :50 EDT aml with dry cough, chest ct shows concern for fungsl infection, check other parts of the body CT ABDOMEN, PELVIS ??Jun 01, 2008 1:58:0 0 PM Clinical History: aml with dry cough, ch est ct shows concern for fungal infection, check other parts of t he body Comparison: None Technique: Helical images were obtained from the do mes of the diaphragm to the ischial tuberosities. During the examina tion intravenous contrast (100 cc of 370 mg % nonionic contrast) w as administered at the rate of 2 cc/second. Findings: The liver, gallbladder and biliary tree, kidneys, and pancreas are normal. There is no evidence of adrenal mass. The spleen is mildly enlarged. The bowel is unremarkable. The re is no abdominal or pelvic free fluid or free air. ??There are no p elvic masses. The lung bases and visualized portion of the heart are normal. The visualized bones are unremarkable. Impression: 1. Mild splenomegaly. I have personally reviewed the images an d the above interpretation and agree with the findings. Procedure Note Wisam Acuña MD / Vamshi Haider MD - 04/23/2009 aml with dry cough, chest ct shows conc tarik for fungsl infection, check other parts of the body CT ABDOMEN, PELVIS Jun 01, 2008 1:58:00 PM Clinical History: aml with dry cough, ch est ct shows concern for fungal infection, check other parts of t he body Comparison: None Technique: Helical images were obtained from the do mes of the diaphragm to the ischial tuberosities. During the examina tion intravenous contrast (100 cc of 370 mg % nonionic contrast) w as administered at the rate of 2 cc/second. Findings: The liver, gallbladder and biliary tree, kidneys, and pancreas are normal. There is no evidence of adrenal mass. The spleen is mildly enlarged. The bowel is unremarkable. The re is no abdominal or pelvic free fluid or free air. There are no pel mariaelena masses. The lung bases and visualized portion of the heart are normal. The visualized bones are unremarkable. Impression: 1. Mild splenomegaly. I have personally reviewed the images an d the above interpretation and agree with the findings. Performing Organization Address City/[facility] Phon e Number [facility] [address] [facility] [address] [facility] [address] [place], [place] [address] CT SINUS COMPLETE WO CONTRAST (06/01/2008 13:45 EDT) Anatomical Region Laterality Modality Other Specimen Narrative [facility] - 04/23/2009 11 :50 EDT aml with dry cough, chest ct shows concern for fungsl infection, check other parts of the body CT Paranasal Sinuses without Contrast: Hanh rebolledo 2007 1:45:00 PM Signs and Symptoms: ??AML with dry cough . ??Chest CT shows concern for fungal infection. ??Check other parts of the body. Comparison: None available. Technique: Axial noncontrast CT images o f the paranasal sinuses were obtained with coronal and sagittal refor mations. Findings: The paranasal sinuses are braydon r. The osteomeatal units are patent. No abnormality of the nasal cavi ty is demonstrated. Impression: Normal paranasal sinus CT. 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 Chest CT shows concern for fungal infection. Check other parts of t he body. Comparison: None available. Technique: Axial noncontrast CT images o f the paranasal sinuses were obtained with coronal and sagittal refor mations. Findings: The paranasal sinuses are braydon r. The osteomeatal units are patent. No abnormality of the nasal cavi ty is demonstrated. Impression: Normal paranasal sinus CT. Performing Organization Address City/[facility]/ZIP Code Phon e Number [facility] [address] [facility] [address] [facility] [address] [place], [place] [address] (ABNORMAL) HEMAGRAM AND DIFFERENTIAL (06/01/2008 6:25 EDT) WBC 0.40 (LL)Comment: 4.5 - 13.5 [facility] Sample retested, K/cmm LAB result confirmed RBC 2.13 (L) 4.00 - 6.20 [facility] M/cmm LAB Hemoglobin Not Available 11.5 - 15.5 [facility] gm/dl LAB HCT 18.2 (LL) 35.0 - 45.0 % [facility] MCV 85 77 - 95 fl [facility] MCH Not calculated pg [facility] MCHC Not calculated gm/dl [facility] PLT 64 (L)Comment: Sample 156 - 312 [facility] retested, result K/cmm LAB confirmed RDW-CV 13.2 % [facility] Neutrophils 0.0 % [facility] Lymphocytes 100.0 % [facility] ABS Neutrophils 0.00 (LL) K/cmm [facility] ABS Lymphs 0.40 K/cmm [facility] Cells Counted 50 [facility] RBC Morphology 1+ Poikilocytosis [facility] 1+ Ovalocytes LAB Type of Diff: Manual [facility] Specimen Performing Organization Address [facility]/ZIP Code Phon e Number [facility] [address] [place] [address] SERVICES [facility] [address] [place] [address] (ABNORMAL) PHOSPHORUS (06/01/2008 6:25 EDT) Pathologist Sig nature Phosphorus 5.8 (H) 4.1 - 5.4 mg/dl [facility] Specimen Performing Organization Address [facility]/ZIP Code Phon e Number [facility] [address] [place] [address] SERVICES [facility] [address] [place] [address] HOLD PURPLE TOP (06/01/2008 6:25 EDT) Hold Purple Top EDTA for hematology will be discarded after 48 hours, differential not available after 12 [facility] hours. Specimen Performing Organization Address City/State/ZIP Code Phon e Number [facility] [address] [place] [address] SERVICES [facility] [address] [place] [address] HOLD GREEN TOP (06/01/2008 6:25 EDT) Pathologist Sig nature Hold Green Top Hold for further [facility] testing. 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 The tip of the right jugular central venous catheter is near the atriocaval junction. No abnormality is observed within the me diastinum. Lung windows show ill-defined airspace and groundglass opa cities with scattered nodules in the left upper lobe and minimally in the superior segment of the left lower lobe. These are consistent wi th infection. Allowing for respiratory motion, the lungs are otherw ise clear. 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 The tip of the right jugular central venous catheter is near the atriocaval junction. No abnormality is observed within the me diastinum. Lung windows show ill-defined airspace and groundglass opa cities with scattered nodules in the left upper lobe and minimally in the superior segment of the left lower lobe. These are consistent wi th infection. Allowing for respiratory motion, the lungs are otherw ise clear. Impression: Findings consistent with lef t-sided pneumonia Performing Organization Address City/State/ZIP Code Phon e Number [facility] [address] [facility] [place] [address] [facility] [address] [place], [place] [address] (ABNORMAL) HEMAGRAM AND DIFFERENTIAL (05/31/2008 6:30 EDT) WBC 1.47 (L) 4.5 - 13.5 [facility] K/cmm RBC 2.27 (L) 4.00 - 6.20 [facility] M/cmm Hemoglobin 7.2 (L) 11.5 - 15.5 [facility] gm/dl HCT 20.0 (LL) 35.0 - 45.0 % [facility] MCV 84 77 - 95 fl [facility] MCH 31.6 pg [facility] MCHC 35.9 gm/dl [facility] PLT 12 (LL) 156 - 312 [facility] K/cmm RDW-CV 13.5 % [facility] Neutrophils 0.0 % [facility] Lymphocytes 100.0 % [facility] ABS Neutrophils 0.00 (LL) K/cmm [facility] ABS Lymphs 1.47 K/cmm [facility] RBC Morphology 1+ Poikilocytosis [facility] 1+ Ovalocytes 1+ Hypochromia Type of Diff: Manual [facility] Specimen Performing Organization Address [facility]/ZIP Code Phon e Number [facility] [address] [place] [address] SERVICES [facility] [address] [place] [address] PHOSPHORUS (05/31/2008 6:30 EDT) Pathologist Sig nature Phosphorus 5.3 4.1 - 5.4 mg/dl [facility] Specimen Performing Organization Address [facility]/ZIP Code Phon e Number [facility] [address] [place] [address] SERVICES [facility] [address] [place] [address] CREATININE (05/31/2008 6:30 EDT) Pathologist Sig nature Creatinine 0.40 0.1 - 0.7 mg/dl [facility] GFR, Calculated Age <18 ml/min/1.73m2 [facility] Specimen Performing Organization Address [facility] Phon e Number [facility] [address] [place] [address] SERVICES [facility] [address] [place] [address] BUN (05/31/2008 6:30 EDT) Pathologist Sig nature BUN 11 7 - 18 mg/dl [facility] Specimen Performing Organization Address [facility] Phon e Number [facility] [address] [place] [address] SERVICES [facility] [address] [place] [address] ELECTROLYTES (05/31/2008 6:30 EDT) Pathologist Sig nature Sodium 139 136 - 145 mEq/L [facility] Potassium 4.3 3.6 - 5.2 mEq/L [facility] Chloride 104 96 - 110 mEq/L [facility] CO2 28 24 - 32 mEq/L [facility] Specimen Performing Organization Address [facility]/ZIP [facility] Phon e Number [facility] [address] [place] [address] [facility] [address] [place] [address] (ABNORMAL) HEMAGRAM AND DIFFERENTIAL (05/30/2008 6:15 EDT) WBC 1.30 (L) 4.5 - 13.5 [facility] K/cmm RBC 2.46 (L) 4.00 - 6.20 [facility] M/cmm Hemoglobin 7.8 (L) 11.5 - 15.5 [facility] gm/dl HCT 22.0 (L) 35.0 - 45.0 % [facility] MCV Not calculated 77 - 95 fl [facility] MCH 31.8 pg [facility] MCHC 35.5 gm/dl [facility] PLT 16 (LL) 156 - 312 K/cmm [facility] RDW-CV 12.9 % [facility] Neutrophils 0.0 % [facility] Lymphocytes 100.0 % [facility] ABS Neutrophils 0.00 (LL) K/cmm [facility] ABS Lymphs 1.30 K/cmm [facility] RBC Morphology 1+ Anisocytosis [facility] Type of Diff: Manual [facility] Specimen Performing Organization Address [facility]/ZIP [facility] Phon e Number [facility] [address] [place] [address] [facility] [address] [place] [address] (ABNORMAL) PHOSPHORUS (05/30/2008 6:15 EDT) Phosphorus 5.5 (H)Comment: 4.1 - 5.4 mg/dl [facility] Heparinized plasma. Specimen Performing Organization Address [facility]/ZIP [facility] Phon e Number [facility] [address] [place] [address] [facility] [address] [place] [address] (ABNORMAL) PHOSPHORUS (05/29/2008 6:15 EDT) Pathologist Sig nature Phosphorus 5.6 (H) 4.1 - 5.4 mg/dl [facility] Specimen Performing Organization Address [facility]/ZIP [facility] Phon e Number [facility] [address] [place] [address] [facility] [address] [place] [address] (ABNORMAL) HEMAGRAM AND DIFFERENTIAL (05/29/2008 6:15 EDT) WBC 1.04 (L) 4.5 - 13.5 [facility] K/cmm RBC 2.64 (L) 4.00 - 6.20 [facility] M/cmm Hemoglobin Not Available 11.5 - 15.5 [facility] gm/dl HCT 22.6 (L) 35.0 - 45.0 % [facility] MCV 86 77 - 95 fl [facility] MCH Not calculated pg [facility] MCHC Not calculated gm/dl [facility] PLT 36 (L) 156 - 312 K/cmm [facility] RDW-CV 13.4 % [facility] Neutrophils 0.0 % [facility] Lymphocytes 100.0 % [facility] ABS Neutrophils 0.00 (LL) K/cmm [facility] ABS Lymphs 1.04 K/cmm [facility] RBC Morphology Normal [facility] Type of Diff: Manual [facility] Specimen Performing Organization Address City/State/ZIP Code Phon e Number [facility] [address] [place] [address] [facility] [address] [place] [address] (ABNORMAL) HEMAGRAM AND DIFFERENTIAL (05/28/2008 6:15 EDT) Pathologist Sig nature WBC 1.20 (L) 4.5 - 13.5 K/cmm [facility] RBC 2.76 (L) 4.00 - 6.20 M/cmm [facility] Hemoglobin 8.6 (L) 11.5 - 15.5 gm/dl [facility] HCT 23.7 (L) 35.0 - 45.0 % [facility] MCV 86 77 - 95 fl [facility] MCH 31.2 pg [facility] MCHC 36.3 gm/dl [facility] PLT 14 (LL) 156 - 312 K/cmm [facility] RDW-CV 14.1 % [facility] Neutrophils 0.0 % [facility] Lymphocytes 99.0 % [facility] Monocytes 1.0 % [facility] ABS Neutrophils 0.00 (LL) K/cmm [facility] ABS Lymphs 1.19 K/cmm [facility] ABS Monocytes 0.01 K/cmm [facility] RBC Morphology Normal [facility] Type of Diff: Manual [facility] Specimen Performing Organization Address [facility] Phon e Number [facility] [address] [place] [address] [facility] [address] [place] [address] (ABNORMAL) PHOSPHORUS (05/28/2008 6:15 EDT) Pathologist Sig nature Phosphorus 5.9 (H) 4.1 - 5.4 mg/dl [facility] Specimen Performing Organization Address [facility] Phon e Number [facility] [address] [place] [address] [facility] [address] [place] [address] CREATININE (05/28/2008 6:15 EDT) Pathologist Sig nature Creatinine 0.37 0.1 - 0.7 mg/dl [facility] GFR, Calculated Age <18 ml/min/1.73m2 [facility] Specimen Performing Organization Address [facility] Phon e Number [facility] [address] [place] [address] [facility] [address] [place] [address] BUN (05/28/2008 6:15 EDT) Pathologist Sig nature BUN 12 7 - 18 mg/dl [facility] Specimen Performing Organization Address [facility] Phon e Number [facility] [address] [place] [address] [facility] [address] [place] [address] ELECTROLYTES (05/28/2008 6:15 EDT) Pathologist Sig nature Sodium 139 136 - 145 mEq/L [facility] Potassium 4.7 3.6 - 5.2 mEq/L [facility] Chloride 103 96 - 110 mEq/L [facility] CO2 27 24 - 32 mEq/L [facility] Specimen Performing Organization Address [facility] Phon e Number [facility] [address] [place] [address] [facility] [address] [place] [address] (ABNORMAL) PHOSPHORUS (05/27/2008 3:40 EDT) Phosphorus 6.5 (H)Comment: 4.1 - 5.4 mg/dl [facility] Heparinized plasma. Specimen Performing Organization Address City/[facility]/ZIP Code Phon e Number [facility] [address] [place] [address] [facility] [address] [place] [address] (ABNORMAL) HEMAGRAM AND DIFFERENTIAL (05/27/2008 3:40 EDT) WBC 1.72 (L) 4.5 - 13.5 [facility] K/cmm RBC 2.86 (L) 4.00 - 6.20 [facility] M/cmm Hemoglobin Not Available 11.5 - 15.5 [facility] gm/dl HCT 24.7 (L) 35.0 - 45.0 % [facility] MCV 86 77 - 95 fl [facility] MCH Not calculated pg [facility] MCHC Not calculated gm/dl [facility] PLT 20 (LL) 156 - 312 [facility] K/cmm RDW-CV 13.5 % [facility] Neutrophils 1.0 % [facility] Lymphocytes 99.0 % [facility] ABS Neutrophils 0.02 (LL) K/cmm [facility] ABS Lymphs 1.70 K/cmm [facility] RBC Morphology 1+ Poikilocytosis [facility] WBC Morphology 1+ Smudge cells [facility] Type of Diff: Manual [facility] Specimen Performing Organization Address City/[facility]/ZIP Code Phon e Number [facility] [address] [place] [address] [facility] [address] [place] [address] VANCOMYCIN TROUGH (05/26/2008 12:10 EDT) Pathologist Sig nature Vancomycin Trough 9.2 ug/ml [facility] Vancomycin Dose Start Date [facility] Vancomycin Dose Start Time 0900 [facility] Specimen Performing Organization Address City/[facility]/ZIP Code Phon e Number [facility] [address] [place] [address] [facility] [address] [place] [address] (ABNORMAL) HEMAGRAM AND DIFFERENTIAL (05/26/2008 5:45 EDT) Pathologist Sig nature WBC 0.75 (LL) 4.5 - 13.5 K/cmm [facility] RBC 4.06 4.00 - 6.20 M/cmm [facility] Hemoglobin 12.8 11.5 - 15.5 gm/dl [facility] HCT 35.3 35.0 - 45.0 % [facility] MCV 87 77 - 95 fl [facility] MCH 31.6 pg [facility] MCHC 36.3 gm/dl [facility] PLT 20 (LL) 156 - 312 K/cmm [facility] RDW-CV 13.5 % [facility] Neutrophils 0.0 % [facility] Lymphocytes 100.0 % [facility] ABS Neutrophils 0.00 (LL) K/cmm [facility] ABS Lymphs 0.75 K/cmm [facility] RBC Morphology Normal [facility] Type of Diff: Manual [facility] Specimen Performing Organization Address [facility] Phon e Number [facility] [address] [place] [address] [facility] [address] [place] [address] (ABNORMAL) PHOSPHORUS (05/26/2008 5:45 EDT) Pathologist Sig nature Phosphorus 5.7 (H) 4.1 - 5.4 mg/dl [facility] Specimen Performing Organization Address [facility] Code Phon e Number [facility] [address] [place] [address] [facility] [address] [place] [address] CREATININE (05/26/2008 5:45 EDT) Pathologist Sig nature Creatinine 0.32 0.1 - 0.7 mg/dl [facility] GFR, Calculated Age <18 ml/min/1.73m2 [facility] Specimen Performing Organization Address [facility]/ZIP Code Phon e Number [facility] [address] [place] [address] [facility] [address] [place] [address] BUN (05/26/2008 5:45 EDT) Pathologist Sig nature BUN 11 7 - 18 mg/dl [facility] Specimen Performing Organization Address [facility]/ZIP Code Phon e Number [facility] [address] [place] [address] SERVICES [facility] [address] [place] [address] ELECTROLYTES (05/26/2008 5:45 EDT) Pathologist Sig nature Sodium 137 136 - 145 mEq/L [facility] Potassium 4.2 3.6 - 5.2 mEq/L [facility] Chloride 103 96 - 110 mEq/L [facility] CO2 27 24 - 32 mEq/L [facility] Specimen Performing Organization Address City/[facility]/ZIP Code Phon e Number [facility] [address] [place] [address] [facility] [address] [place] [address] (ABNORMAL) PHOSPHORUS (05/25/2008 3:40 EDT) Pathologist Sig nature Phosphorus 5.5 (H) 4.1 - 5.4 mg/dl [facility] Specimen Performing Organization Address [facility]/ZIP Code Phon e Number [facility] [address] [place] [address] SERVICES [facility] [address] [place] [address] CREATININE (05/25/2008 3:40 EDT) Pathologist Sig nature Creatinine 0.40 0.1 - 0.7 mg/dl [facility] GFR, Calculated Age <18 ml/min/1.73m2 [facility] Specimen Performing Organization Address [facility]/ZIP Code Phon e Number [facility] [address] [place] [address] SERVICES [facility] [address] [place] [address] BUN (05/25/2008 3:40 EDT) Pathologist Sig nature BUN 11 7 - 18 mg/dl [facility] Specimen Performing Organization Address City/[facility]/ZIP Code Phon e Number [facility] [address] [place] [address] SERVICES [facility] [address] [place] [address] ELECTROLYTES (05/25/2008 3:40 EDT) Pathologist Sig nature Sodium 141 136 - 145 mEq/L [facility] Potassium 4.2 3.6 - 5.2 mEq/L [facility] Chloride 104 96 - 110 mEq/L [facility] CO2 26 24 - 32 mEq/L [facility] Specimen Performing Organization Address [facility]/ZIP Code Phon e Number [facility] [address] [place] [address] [facility] [address] [place] [address] (ABNORMAL) HEMAGRAM AND DIFFERENTIAL (05/25/2008 3:40 EDT) WBC 0.93 (LL) 4.5 - 13.5 [facility] K/cmm RBC 2.22 (L) 4.00 - 6.20 [facility] M/cmm Hemoglobin Not Available 11.5 - 15.5 [facility] gm/dl HCT 19.0 (LL) 35.0 - 45.0 % [facility] MCV Not calculated 77 - 95 fl [facility] MCH Not calculated pg [facility] MCHC Not calculated gm/dl [facility] PLT 10 (LL) 156 - 312 [facility] K/cmm RDW-CV 13.4 % [facility] Neutrophils 0.0 % [facility] Lymphocytes 99.0 % [facility] Monocytes 1.0 % [facility] ABS Neutrophils 0.00 (LL) K/cmm [facility] ABS Lymphs 0.92 K/cmm [facility] ABS Monocytes 0.01 K/cmm [facility] RBC Morphology 1+ Poikilocytosis [facility] 1+ Ovalocytes Type of Diff: Manual [facility] Specimen Performing Organization Address City/[facility]/ZIP Code Phon e Number [facility] [address] [place] [address] [facility] [address] [place] [address] BACTERIAL CULTURE, BLOOD (05/24/2008 20:30 EDT) Specimen Description Blood [facility] Draw site not indicated. Pediatric bottle received Result No growth [facility] Report Status Final [facility] [id number] Specimen Performing Organization Address [facility]/ZIP [facility] Phon e Number [facility] [address] [place] [address] [facility] [address] [place] [address] FUNGUS CULTURE, BLOOD (05/24/2008 20:30 EDT) Specimen Description Blood [facility] Draw site not indicated. Pediatric bottle received Isolator tube received Result Scanty specimen [facility] One colony only Bacillus sp. NOT anthracis. No fungi isolated Report Status Final [facility] [id number] Specimen Performing Organization Address City/[facility]/ZIP Code Phon e Number [facility] [address] [place] [address] SERVICES [facility] [address] [place] [address] (ABNORMAL) HEMAGRAM AND DIFFERENTIAL (05/24/2008 5:55 EDT) WBC 1.08 (L) 4.5 - 13.5 [facility] K/cmm RBC 2.33 (L) 4.00 - 6.20 [facility] M/cmm Hemoglobin 7.3 (L) 11.5 - 15.5 [facility] gm/dl HCT 20.1 (LL) 35.0 - 45.0 % [facility] MCV 86 77 - 95 fl [facility] MCH 31.3 pg [facility] MCHC 36.3 gm/dl [facility] PLT 14 (LL) 156 - 312 [facility] K/cmm RDW-CV 14.3 % [facility] Neutrophils 0.0 % [facility] Lymphocytes 97.0 % [facility] Atyp Lymphs 3.0 % [facility] ABS Neutrophils 0.00 (LL) K/cmm [facility] ABS Lymphs 1.05 K/cmm [facility] ABS Atyp Lymphs 0.03 K/cmm [facility] RBC Morphology 1+ Microcytes [facility] 1+ Poikilocytosis Type of Diff: Manual [facility] Specimen Performing Organization Address City/[facility]/ZIP Code Phon e Number [facility] [address] [place] [address] [facility] [address] [place] [address] (ABNORMAL) PHOSPHORUS (05/24/2008 5:55 EDT) Pathologist Sig nature Phosphorus 5.9 (H) 4.1 - 5.4 mg/dl [facility] Specimen Performing Organization Address [facility]/ZIP Code Phon e Number [facility] [address] [place] [address] [facility] [address] [place] [address] CREATININE (05/24/2008 5:55 EDT) Pathologist Sig nature Creatinine 0.40 0.1 - 0.7 mg/dl [facility] GFR, Calculated Age <18 ml/min/1.73m2 [facility] Specimen Performing Organization Address [facility]/ZIP Code Phon e Number [facility] [address] [place] [address] [facility] [address] [place] [address] BUN (05/24/2008 5:55 EDT) Pathologist Sig nature BUN 13 7 - 18 mg/dl [facility] Specimen Performing Organization Address [facility]/ZIP [facility] Phon e Number [facility] [address] [place] [address] SERVICES [facility] [address] [place] [address] ELECTROLYTES (05/24/2008 5:55 EDT) Pathologist Sig nature Sodium 141 136 - 145 mEq/L [facility] Potassium 4.6 3.6 - 5.2 mEq/L [facility] Chloride 104 96 - 110 mEq/L [facility] CO2 28 24 - 32 mEq/L [facility] Specimen Performing Organization Address [facility]/ZIP Code Phon e Number [facility] [address] [place] [address] SERVICES [facility] [address] [place] [address] (ABNORMAL) HEMAGRAM AND DIFFERENTIAL (05/23/2008 5:40 EDT) WBC 1.10 (L) 4.5 - 13.5 [facility] K/cmm LAB RBC 2.35 (L) 4.00 - 6.20 [facility] M/cmm LAB Hemoglobin Not Available 11.5 - 15.5 [facility] gm/dl LAB HCT 20.5 (LL) 35.0 - 45.0 % [facility] MCV 87 77 - 95 fl [facility] MCH Not calculated pg [facility] MCHC Not calculated gm/dl [facility] PLT 24 (L) 156 - 312 [facility] K/cmm LAB RDW-CV 14.7 % [facility] Neutrophils 1.0 % [facility] Bands 1.0 % [facility] Lymphocytes 96.0 % [facility] Atyp Lymphs 2.0 % [facility] ABS Neutrophils 0.01 (LL) K/cmm [facility] ABS Bands 0.01 K/cmm [facility] ABS Lymphs 1.06 K/cmm [facility] ABS Atyp Lymphs 0.02 K/cmm [facility] RBC Morphology 1+ Poikilocytosis [facility] 1+ Ovalocytes LAB Comment Reviewed by Dr. Vinod MUSA Type of Diff: Manual [facility] Specimen Performing Organization Address City/[facility]/ZIP Code Phon e Number [facility] [address] [place] [address] [facility] [address] [place] [address] GLUCOSE, SERUM (05/23/2008 5:40 EDT) Glucose, Serum 78Comment: 70 - 100 mg/dl [facility] Heparinized plasma. LAB Specimen Performing Organization Address [facility]/ZIP [facility] Phon e Number [facility] [address] [place] [address] SERVICES [facility] [address] [place] [address] (ABNORMAL) PHOSPHORUS (05/23/2008 5:40 EDT) Phosphorus 6.0 (H)Comment: 4.1 - 5.4 mg/dl [facility] Heparinized plasma. Specimen Performing Organization Address City/[facility]/ZIP Code Phon e Number [facility] [address] [place] [address] SERVICES [facility] [address] [place] [address] MAGNESIUM (05/23/2008 5:40 EDT) Magnesium 2.1Comment: 1.7 - 2.8 mg/dl [facility] Heparinized plasma. Specimen Performing Organization Address City/[facility]/ZIP Code Phon e Number [facility] [address] [place] [address] SERVICES [facility] [address] [place] [address] TOTAL & DIRECT BILIRUBIN (05/23/2008 5:40 EDT) Conjugated Bilirubin 0.0Comment: 0.0 - 0.3 [facility] Heparinized plasma. mg/dl LAB Unconjugated 0.3Comment: 0.1 - 1.1 [facility] Bilirubin Heparinized plasma. mg/dl LAB Bilirubin, Total <0.5Comment: 0.0 - 1.4 [facility] Heparinized plasma. mg/dl LAB Specimen Performing Organization Address City/[facility]/ZIP Code Phon e Number [facility] [address] [place] [address] SERVICES [facility] [address] [place] [address] AST (05/23/2008 5:40 EDT) Pathologist Sig nature AST 23Comment: Heparinized 23 - 58 U/L [facility] plasma. Specimen Performing Organization Address City/[facility]/ZIP Code Phon e Number [facility] [address] [place] [address] SERVICES [facility] [address] [place] [address] ALT (05/23/2008 5:40 EDT) Pathologist Sig nature ALT 12Comment: Heparinized 10 - 25 U/L [facility] plasma. Specimen Performing Organization Address City/[facility]/ZIP Code Phon e Number [facility] [address] [place] [address] SERVICES [facility] [address] [place] [address] GLUCOSE, SERUM (05/22/2008 5:50 EDT) Pathologist Sig nature Glucose, Serum 79 70 - 100 mg/dl [facility] Specimen Performing Organization Address City/[facility]/ZIP Code Phon e Number [facility] [address] [place] [address] SERVICES [facility] [address] [place] [address] (ABNORMAL) PHOSPHORUS (05/22/2008 5:50 EDT) Pathologist Sig nature Phosphorus 6.1 (H) 4.1 - 5.4 mg/dl [facility] Specimen Performing Organization Address City/[facility]/ZIP Code Phon e Number [facility] [address] [place] [address] SERVICES [facility] [address] [place] [address] MAGNESIUM (05/22/2008 5:50 EDT) Pathologist Sig nature Magnesium 2.2 1.7 - 2.8 mg/dl [facility] Specimen Performing Organization Address [facility] Code Phon e Number [facility] [address] [place] [address] SERVICES [facility] [address] [place] [address] TOTAL & DIRECT BILIRUBIN (05/22/2008 5:50 EDT) Pathologist Sig nature Conjugated Bilirubin 0.0 0.0 - 0.3 mg/dl [facility] B Unconjugated Bilirubin 0.3 0.1 - 1.1 mg/dl [facility] Bilirubin, Total <0.5 0.0 - 1.4 mg/dl [facility] Specimen Performing Organization Address [facility] Phon e Number [facility] [address] [place] [address] SERVICES [facility] [address] [place] [address] AST (05/22/2008 5:50 EDT) Pathologist Sig nature AST 32 23 - 58 U/L [facility] Specimen Performing Organization Address [facility]/ZIP Code Phon e Number [facility] [address] [place] [address] SERVICES [facility] [address] [place] [address] ALT (05/22/2008 5:50 EDT) Pathologist Sig nature ALT 16 10 - 25 U/L [facility] Specimen Performing Organization Address [facility]/ZIP Code Phon e Number [facility] [address] [place] [address] SERVICES [facility] [address] [place] [address] (ABNORMAL) HEMAGRAM AND DIFFERENTIAL (05/22/2008 5:50 EDT) WBC 1.53 (L) 4.5 - 13.5 [facility] K/cmm RBC 2.36 (L) 4.00 - 6.20 [facility] M/cmm Hemoglobin 7.5 (L) 11.5 - 15.5 [facility] gm/dl HCT 20.5 (LL) 35.0 - 45.0 % [facility] MCV 87 77 - 95 fl [facility] MCH 31.8 pg [facility] MCHC 36.5 gm/dl [facility] PLT 43 (L) 156 - 312 [facility] K/cmm RDW-CV 14.8 % [facility] Neutrophils 0.0 % [facility] Lymphocytes 100.0 % [facility] ABS Neutrophils 0.00 (LL) K/cmm [facility] ABS Lymphs 1.53 K/cmm [facility] RBC Morphology 1+ Ovalocytes [facility] 1+ Poikilocytosis Type of Diff: Manual [facility] Specimen Performing Organization Address City/State/ZIP Code Phon e Number [facility] [address] [place] [address] [facility] [address] [place] [address] KNEE 1 OR 2 VIEWS (05/21/2008 9:55 EDT) Anatomical Region Laterality Modality Other Specimen Narrative [facility] - 04/23/2009 12 :14 EDT 8 year old boy with newly dx'd aml-lump found on rt knee, eval'd via u/s 05/19, further eval per Dr Ahuja Right and left KNEES 1 OR 2 VIEWS ??May 21, 2008 9:55:00 AM Signs and Symptoms: ??8 year old boy wit h newly dx''d aml-lump found on rt knee, eval''d via u/s 05/19, [facility] er eval per Dr Ahuja. Findings: AP and lateral views of both r ight and left knees show no abnormalities. Procedure Note Alfred Perez MD - 04/23/2009 8 year old boy with newly dx'd aml-lump found on rt knee, eval'd via u/s 05/19, further eval per Dr Ahuja Right and left KNEES 1 OR 2 VIEWS May 9:55:00 AM Signs and Symptoms: 8 year old boy with newly dx''d aml-lump found on rt knee, eval''d via u/s 05/19, fur er eval per Dr Ahuja. Findings: AP and lateral views of both r ight and left knees show no abnormalities. Performing Organization Address City/State/ZIP Code Phon e Number [facility] [address] [facility] [address] [facility] [address] [place], [place] [address] KNEE 1 OR 2 VIEWS (05/21/2008 9:55 EDT) Anatomical Region Laterality Modality Other Specimen Narrative [facility] - 04/23/2009 12 :14 EDT 8 year old boy with newly dx'd aml-lump found on rt knee, eval'd via u/s 05/19, further eval per Dr Ahuja Right and left KNEES 1 OR 2 VIEWS ??May 21, 2008 9:55:00 AM Signs and Symptoms: ??8 year old boy wit h newly dx''d aml-lump found on rt knee, eval''d via u/s 05/19, [facility] er eval per Dr Ahuja. Findings: AP and lateral views of both r ight and left knees show no abnormalities. Procedure Note Alfred Perez MD - 04/23/2009 8 year old boy with newly dx'd aml-lump found on rt knee, eval'd via u/s 05/19, further eval per Dr Ahuja Right and left KNEES 1 OR 2 VIEWS May 9:55:00 AM Signs and Symptoms: 8 year old boy with newly dx''d aml-lump found on rt knee, eval''d via u/s 05/19, [facility] er eval per Dr Ahuja. Findings: AP and lateral views of both r ight and left knees show no abnormalities. Performing Organization Address City/State/ZIP Code Phon e Number [facility] [address] [facility] [address] [facility] [address] [place] [address] (ABNORMAL) HEMAGRAM AND DIFFERENTIAL (05/21/2008 5:45 EDT) WBC 1.39 (L) 4.5 - 13.5 [facility] K/cmm RBC 2.39 (L) 4.00 - 6.20 [facility] M/cmm Hemoglobin 7.6 (L) 11.5 - 15.5 [facility] gm/dl HCT 21.3 (L) 35.0 - 45.0 % [facility] MCV 89 77 - 95 fl [facility] MCH 31.7 pg [facility] MCHC 35.6 gm/dl [facility] PLT 57 (L) 156 - 312 [facility] K/cmm RDW-CV 15.0 % [facility] Neutrophils 3.0 % [facility] Lymphocytes 97.0 % [facility] ABS Neutrophils 0.04 (LL) K/cmm [facility] ABS Lymphs 1.35 K/cmm [facility] RBC Morphology 1+ Poikilocytosis [facility] 1+ Ovalocytes Type of Diff: Manual [facility] Specimen Performing Organization Address City/State/ZIP Code Phon e Number [facility] [address] [place] [address] SERVICES [facility] [address] [place] [address] GLUCOSE, SERUM (05/21/2008 5:45 EDT) Glucose, Serum 76Comment: 70 - 100 mg/dl [facility] Heparinized plasma. LAB Specimen Performing Organization Address City/[facility]/ZIP Code Phon e Number [facility] [address] [place] [address] SERVICES [facility] [address] [place] [address] PHOSPHORUS (05/21/2008 5:45 EDT) Phosphorus 5.1Comment: 4.1 - 5.4 mg/dl [facility] Heparinized plasma. Specimen Performing Organization Address City/State/ZIP Code Phon e Number [facility] [address] [place] [address] SERVICES [facility] [address] [place] [address] MAGNESIUM (05/21/2008 5:45 EDT) Magnesium 2.3Comment: 1.7 - 2.8 mg/dl [facility] Heparinized plasma. Specimen Performing Organization Address City/[facility]/ZIP Code Phon e Number [facility] [address] [place] [address] SERVICES [facility] [address] [place] [address] CREATININE (05/21/2008 5:45 EDT) Creatinine 0.41Comment: 0.1 - 0.7 [facility] Heparinized plasma. mg/dl LAB GFR, Calculated Age <18 ml/min/1.73m2 [facility] Heparinized plasma. LAB Specimen Performing Organization Address [facility]/ZIP Code Phon e Number [facility] [address] [place] [address] SERVICES [facility] [address] [place] [address] BUN (05/21/2008 5:45 EDT) Pathologist Sig nature BUN 10Comment: Heparinized 7 - 18 mg/dl [facility] plasma. Specimen Performing Organization Address [facility] Phon e Number [facility] [address] [place] [address] SERVICES [facility] [address] [place] [address] TOTAL & DIRECT BILIRUBIN (05/21/2008 5:45 EDT) Conjugated Bilirubin 0.0Comment: 0.0 - 0.3 [facility] Heparinized plasma. mg/dl LAB Unconjugated 0.5Comment: 0.1 - 1.1 [facility] Bilirubin Heparinized plasma. mg/dl LAB Bilirubin, Total <0.5Comment: 0.0 - 1.4 [facility] Heparinized plasma. mg/dl LAB Specimen Performing Organization Address [facility] Phon e Number [facility] [address] [place] [address] SERVICES [facility] [address] [place] [address] AST (05/21/2008 5:45 EDT) Pathologist Sig nature AST 24Comment: Heparinized 23 - 58 U/L [facility] plasma. Specimen Performing Organization Address [facility]/ZIP Code Phon e Number [facility] [address] [place] [address] SERVICES [facility] [address] [place] [address] ALT (05/21/2008 5:45 EDT) Pathologist Sig nature ALT 11Comment: Heparinized 10 - 25 U/L [facility] plasma. Specimen Performing Organization Address City/[facility] Phon e Number [facility] [address] [place] [address] SERVICES [facility] [address] [place] [address] (ABNORMAL) ELECTROLYTES (05/21/2008 5:45 EDT) Sodium 135 (L)Comment: 136 - 145 mEq/L [facility] Heparinized plasma. Potassium 4.4Comment: 3.6 - 5.2 mEq/L [facility] Heparinized plasma. Chloride 103Comment: 96 - 110 mEq/L [facility] Heparinized plasma. CO2 26Comment: 24 - 32 mEq/L [facility] Heparinized plasma. Specimen Performing Organization Address [facility] Phon e Number [facility] [address] [place] [address] SERVICES [facility] [address] [place] [address] (ABNORMAL) HEMAGRAM AND DIFFERENTIAL (05/20/2008 4:01 EDT) Pathologist [facility] [place] WBC 1.38 (L) 4.5 - 13.5 [facility] K/cmm RBC 2.50 (L) 4.00 - 6.20 [facility] M/cmm Hemoglobin 7.8 (L) 11.5 - 15.5 [facility] gm/dl HCT 22.0 (L) 35.0 - 45.0 % [facility] MCV 88 77 - 95 fl [facility] MCH 31.3 pg [facility] MCHC 35.6 gm/dl [facility] PLT 16 (LL) 156 - 312 [facility] K/cmm RDW-CV 15.2 % [facility] Neutrophils 0.0 % [facility] Lymphocytes 99.0 % [facility] Monocytes 1.0 % [facility] ABS Neutrophils 0.00 (LL) K/cmm [facility] ABS Lymphs 1.37 K/cmm [facility] ABS Monocytes 0.01 K/cmm [facility] RBC Morphology 1+ Ovalocytes [facility] 1+ Poikilocytosis 1+ Anisocytosis Type of Diff: Manual [facility] Specimen Performing Organization Address [facility]/ZIP Code Phon e Number [facility] [address] [place] [address] SERVICES [facility] [address] [place] [address] GLUCOSE, SERUM (05/20/2008 4:01 EDT) Pathologist Sig nature Glucose, Serum 82 70 - 100 mg/dl [facility] Specimen Performing Organization Address [facility] Phon e Number [facility] [address] [place] [address] SERVICES [facility] [address] [place] [address] (ABNORMAL) PHOSPHORUS (05/20/2008 4:01 EDT) Pathologist Sig nature Phosphorus 6.0 (H) 4.1 - 5.4 mg/dl [facility] Specimen Performing Organization Address [facility] Phon e Number [facility] [address] [place] [address] SERVICES [facility] [address] [place] [address] MAGNESIUM (05/20/2008 4:01 EDT) Pathologist Sig nature Magnesium 2.1 1.7 - 2.8 mg/dl [facility] Specimen Performing Organization Address [facility] Phon e Number [facility] [address] [place] [address] SERVICES [facility] [address] [place] [address] AST (05/20/2008 4:01 EDT) Pathologist Sig nature AST 26 23 - 58 U/L [facility] Specimen Performing Organization Address [facility]/ZIP Code Phon e Number [facility] [address] [place] [address] SERVICES [facility] [address] [place] [address] ALT (05/20/2008 4:01 EDT) Pathologist Sig nature ALT 15 10 - 25 U/L [facility] Specimen Performing Organization Address [facility] Phon e Number [facility] [address] [place] [address] SERVICES [facility] [address] [place] [address] RAD US DOPPLER EXT VENOUS UNILATERAL (05/19/2008 11:42 EDT) Anatomical Region Laterality Modality Other Specimen Narrative [facility] - 04/23/2009 13 :17 EDT 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 Comparison is made to left knee. Ultrasound examination of the left knee with comparison to the right is performed. The right and left proxima l tibial metaphysis, physis and epiphysis are symmetric and normal i n appearance. On the right there is an area of cortica l irregularity which begins 1.4 cm distal to the right ??proximal ti bial metaphysis extends for approximately 1 cm and is located latera l off midline. This is associated with adjacent soft ti ssue thickening which is well demarcated, ??predominantly hypoechoic s lightly heterogenous, elevates the soft tissue planes ??and me asures 1.0 cm long x 0.4 cm AP x 1.1 cm transverse. With color Doppler imaging, no significant flow in or around this region is identified. With high resolution scanning there does appear to be cortical interruption ??through the irregular bon y surface although the margins of the bones appear ??distinct and not e roded. Slight irregularity was seen in the left proximal tibia at the region of the tibial tuberosity. The area in qu estion on the right extends somewhat more inferiorly in a small late ral than the expected tibial tuberosity. No tenderness. No change in configuratio n with transducer applied pressure or with examination in the eden ding position and supine positions. Impression: Right proximal tibia with bony defect a nd adjacent soft tissue. Differential includes benign conditions i.e. osteochrondroma, asymmetric tibila tuberosity although le sions related to AMl i.e. chloroma might have this appearance. ??R ecommend xrays of right and left (for comparison) knees. 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 Comparison is made to left knee. Ultrasound examination of the left knee with comparison to the right is performed. The right and left proxima l tibial metaphysis, physis and epiphysis are symmetric and normal i n appearance. On the right there is an area of cortica l irregularity which begins 1.4 cm distal to the right proximal tibi al metaphysis extends for approximately 1 cm and is located latera l off midline. This is associated with adjacent soft ti ssue thickening which is well demarcated, predominantly hypoechoic sli ghtly heterogenous, elevates the soft tissue planes and nnamdi ures 1.0 cm long x 0.4 cm AP x 1.1 cm transverse. With color Doppler imaging, no significant flow in or around this region is identified. With high resolution scanning there does appear to be cortical interruption through the irregular bony surface although the margins of the bones appear distinct and not ero ded. Slight irregularity was seen in the left proximal tibia at the region of the tibial tuberosity. The area in qu estion on the right extends somewhat more inferiorly in a small late ral than the expected tibial tuberosity. No tenderness. No change in configuratio n with transducer applied pressure or with examination in the eden ding position and supine positions. Impression: Right proximal tibia with bony defect a nd adjacent soft tissue. Differential includes benign conditions i.e. osteochrondroma, asymmetric tibila tuberosity although le sions related to AMl i.e. chloroma might have this appearance. Rec ommend xrays of right and left (for comparison) knees. Performing Organization Address City/[facility]/ZIP Code Phon e Number [facility] [address] [facility] [address] [facility] [address] [place], [place] [address] GLUCOSE, SERUM (05/19/2008 4:40 EDT) Glucose, Serum 87Comment: 70 - 100 mg/dl [facility] Heparinized plasma. LAB Specimen Performing Organization Address City/[facility]/ZIP Code Phon e Number [facility] [address] [place] [address] SERVICES [facility] [address] [place] [address] PHOSPHORUS (05/19/2008 4:40 EDT) Phosphorus 5.1Comment: 4.1 - 5.4 mg/dl [facility] Heparinized plasma. Specimen Performing Organization Address City/State/ZIP Code Phon e Number [facility] [address] [place] [address] SERVICES [facility] [address] [place] [address] MAGNESIUM (05/19/2008 4:40 EDT) Magnesium 2.0Comment: 1.7 - 2.8 mg/dl [facility] Heparinized plasma. Specimen Performing Organization Address City/State/ZIP Code Phon e Number [facility] [address] [place] [address] SERVICES [facility] [address] [place] [address] AST (05/19/2008 4:40 EDT) Pathologist Sig nature AST 28Comment: Heparinized 23 - 58 U/L [facility] plasma. Specimen Performing Organization Address City/State/ZIP Code Phon e Number [facility] [address] [place] [address] SERVICES [facility] [address] [place] [address] ALT (05/19/2008 4:40 EDT) Pathologist Sig nature ALT 17Comment: Heparinized 10 - 25 U/L [facility] plasma. Specimen Performing Organization Address City/[facility]/ZIP Code Phon e Number [facility] [address] [place] [address] SERVICES [facility] [address] [place] [address] (ABNORMAL) HEMAGRAM AND DIFFERENTIAL (05/19/2008 4:40 EDT) Pathologist Sig nature WBC 1.51 (L) 4.5 - 13.5 K/cmm [facility] RBC 2.54 (L) 4.00 - 6.20 M/cmm [facility] Hemoglobin 8.2 (L) 11.5 - 15.5 gm/dl [facility] HCT 22.6 (L) 35.0 - 45.0 % [facility] MCV 89 77 - 95 fl [facility] MCH 32.1 pg [facility] MCHC 36.2 gm/dl [facility] PLT 21 (L) 156 - 312 K/cmm [facility] RDW-CV 14.7 % [facility] Neutrophils 4.0 % [facility] Lymphocytes 96.0 % [facility] ABS Neutrophils 0.06 (LL) K/cmm [facility] ABS Lymphs 1.45 K/cmm [facility] Cells Counted 50 [facility] RBC Morphology Normal [facility] Type of Diff: Manual [facility] Specimen Performing Organization Address City/[facility]/ZIP Code Phon e Number [facility] [address] [place] [address] SERVICES [facility] [address] [place] [address] (ABNORMAL) HEMAGRAM AND DIFFERENTIAL (05/18/2008 7:40 EDT) Pathologist [facility] [place] WBC 1.46 (L) 4.5 - 13.5 [facility] K/cmm RBC 1.95 (L) 4.00 - 6.20 [facility] M/cmm Hemoglobin Not Available 11.5 - 15.5 [facility] gm/dl HCT 17.5 (LL) 35.0 - 45.0 % [facility] MCV Not calculated 77 - 95 fl [facility] MCH Not calculated pg [facility] MCHC Not calculated gm/dl [facility] PLT 39 (L) 156 - 312 K/cmm [facility] RDW-CV 15.8 % [facility] Neutrophils 2.0 % [facility] Lymphocytes 97.0 % [facility] Eosinophils 1.0 % [facility] ABS Neutrophils 0.03 (LL) K/cmm [facility] ABS Lymphs 1.42 K/cmm [facility] ABS Eosinophils 0.01 K/cmm [facility] RBC Morphology 1+ Anisocytosis [facility] 1+ Microcytes Type of Diff: Manual [facility] Specimen Performing Organization Address City/[facility]/ZIP Code Phon e Number [facility] [address] [place] [address] SERVICES [facility] [address] [place] [address] URIC ACID (05/18/2008 4:00 EDT) Pathologist Sig nature Uric Acid 2.2 2.2 - 4.7 mg/dl [facility] Specimen Performing Organization Address [facility]/ZIP Code Phon e Number [facility] [address] [place] [address] SERVICES [facility] [address] [place] [address] GLUCOSE, SERUM (05/18/2008 4:00 EDT) Pathologist Sig nature Glucose, Serum 86 70 - 100 mg/dl [facility] Specimen Performing Organization Address [facility] Phon e Number [facility] [address] [place] [address] SERVICES [facility] [address] [place] [address] PHOSPHORUS (05/18/2008 4:00 EDT) Pathologist Sig nature Phosphorus 5.1 4.1 - 5.4 mg/dl [facility] Specimen Performing Organization Address [facility] Phon e Number [facility] [address] [place] [address] SERVICES [facility] [address] [place] [address] MAGNESIUM (05/18/2008 4:00 EDT) Pathologist Sig nature Magnesium 2.1 1.7 - 2.8 mg/dl [facility] Specimen Performing Organization Address [facility] Phon e Number [facility] [address] [place] [address] SERVICES [facility] [address] [place] [address] TOTAL & DIRECT BILIRUBIN (05/18/2008 4:00 EDT) Pathologist Sig nature Conjugated Bilirubin 0.0 0.0 - 0.3 mg/dl [facility] B Unconjugated Bilirubin 0.4 0.1 - 1.1 mg/dl [facility] Bilirubin, Total <0.5 0.0 - 1.4 mg/dl [facility] Specimen Performing Organization Address [facility] Phon e Number [facility] [address] [place] [address] SERVICES [facility] [address] [place] [address] (ABNORMAL) AST (05/18/2008 4:00 EDT) Pathologist Sig nature AST 18 (L) 23 - 58 U/L [facility] Specimen Performing Organization Address [facility] Phon e Number [facility] [address] [place] [address] SERVICES [facility] [address] [place] [id number] ALT (05/18/2008 4:00 EDT) Pathologist Sig nature ALT <11 10 - 25 U/L [facility] Specimen Performing Organization Address [facility] Phon e Number [facility] [address] [place] [address] SERVICES [facility] [address] [place] [address] ELECTROLYTES (05/18/2008 4:00 EDT) Pathologist Sig nature Sodium 138 136 - 145 mEq/L [facility] Potassium 3.8 3.6 - 5.2 mEq/L [facility] Chloride 110 96 - 110 mEq/L [facility] CO2 25 24 - 32 mEq/L [facility] Specimen Performing Organization Address [facility] Phon e Number [facility] [address] [place] [address] SERVICES [facility] [address] [place] [address] BONE MARROW PATIENT ANTIBODY SCREEN (05/17/2008 15:45 EDT) Date Drawn 05/17/08 [facility] Lymphocytotoxic Ab 0 0 - 5 % [facility] Comment: LAB Tested by antiglobulin augme nted cytotoxicity against a 59 cell panel representing most HLA antigens. Antibody No lymphocytotoxic [facility] antibody present LAB Specimen Performing Organization Address [facility] Phon e Number [facility] [address] [place] [phone] SERVICES [facility] [address] [place] [address] TYPE (05/17/2008 15:45 EDT) HLA-DR See supplementary [facility] report LAB HLA-DR [facility] HLA-DR [facility] HLA-DR [facility] DQ Locus DARRIAN MUSA DQ Locus [facility] Relationship to Pt Potential bone marrow [facility] Sibley recipient. LAB Specimen Performing Organization Address [facility] Phon e Number [facility] [address] [place] [phone] SERVICES [facility] [address] [place] [address] BONE MARROW RECIPIENT HLA TYPE (05/17/2008 15:45 EDT) Pathologist Sig nature A Locus See supplementary report [facility] Velasquez AB A Locus [facility] B Locus [facility] B Locus [facility] C Locus [facility] C Locus D[facility] LAB Specimen Performing Organization Address [facility] Phon e Number [facility] [address] [place] [address] SERVICES [facility] [address] [place] [address] HLA PRELIMINARY CROSSMATCH (05/17/2008 15:45 EDT) Preliminary Xmatch See supplementary [facility] report LAB Specimen Performing Organization Address [facility] Phon e Number [facility] [address] [place] [address] SERVICES [facility] [address] [place] [address] REFRACTOMETER SPECIFIC GRAVITY, URINE (05/17/2008 3:45 EDT) Pathologist Sig nature Refractometer SG,Urine 1.010 1.005 - 1.02 [facility] Specimen Performing Organization Address [facility]/ZIP Code Phon e Number [facility] [address] [place] [address] SERVICES [facility] [address] [place] [id number] UA REFLEX (05/17/2008 3:45 EDT) Pathologist Sig nature UA Billing Microscopic not [facility] indicated. Specimen Performing Organization Address [facility] Phon e Number [facility] [address] [place] [address] SERVICES [facility] [address] [place] [id number] URINALYSIS, CHEMICAL (05/17/2008 3:45 EDT) Color, UA PEACH IN COLOR [facility] Clarity, UA Clear [facility] Glucose, UA Norm NORM [facility] Bilirubin, UA Neg NEG [facility] [facility] Ketones, UA Neg NEG [facility] Specific [place], 1.010 1.005 - 1.02 [facility] Urine Blood, UA Neg NEG [facility] pH, UA 6.0 5.0 - 9.0 [facility] Protein, UA Neg NEG [facility] Urobilinogen, UA Norm NORM mg/dL [facility] Nitrite, UA Neg NEG [facility] Leuk Esterase Neg NEG [facility] Specimen Performing Organization Address [facility] Phon e Number [facility] [address] [place] [address] SERVICES [facility] [address] [place] [address] (ABNORMAL) HEMAGRAM AND DIFFERENTIAL (05/17/2008 2:30 EDT) WBC 2.08 (L) 4.5 - 13.5 [facility] K/cmm RBC 2.23 (L) 4.00 - 6.20 [facility] M/cmm Hemoglobin 7.2 (L) 11.5 - 15.5 [facility] gm/dl HCT 19.8 (LL) 35.0 - 45.0 % [facility] MCV 89 77 - 95 fl [facility] MCH 32.4 pg [facility] MCHC 36.5 gm/dl [facility] PLT 50 (L) 156 - 312 [facility] K/cmm RDW-CV 17.4 % [facility] Neutrophils 2.0 % [facility] Lymphocytes 64.0 % [facility] Atyp Lymphs 20.0 % [facility] Monocytes 1.0 % [facility] Blasts 13.0 % [facility] ABS Neutrophils 0.04 (LL) K/cmm [facility] ABS Lymphs 1.33 K/cmm [facility] ABS Atyp Lymphs 0.42 K/cmm [facility] ABS Monocytes 0.02 K/cmm [facility] ABS Blasts 0.27 K/cmm [facility] RBC Morphology 1+ Anisocytosis [facility] 1+ Poikilocytosis 1+ Microcytes WBC Morphology 1+ Smudge cells [facility] Type of Diff: Manual [facility] Specimen Performing Organization Address [facility] Code Phon e Number [facility] [address] [place] [address] SERVICES [facility] [address] [place] [address] (ABNORMAL) URIC ACID (05/17/2008 2:30 EDT) Pathologist Sig nature Uric Acid 1.6 (L) 2.2 - 4.7 mg/dl [facility] Specimen Performing Organization Address [facility]/ZIP Code Phon e Number [facility] [address] [place] [address] SERVICES [facility] [address] [place] [address] GLUCOSE, SERUM (05/17/2008 2:30 EDT) Pathologist Sig nature Glucose, Serum 91 70 - 100 mg/dl [facility] Specimen Performing Organization Address [facility] Phon e Number [facility] [address] [place] [address] SERVICES [facility] [address] [place] [address] PHOSPHORUS (05/17/2008 2:30 EDT) Pathologist Sig nature Phosphorus 5.3 4.1 - 5.4 mg/dl [facility] Specimen Performing Organization Address [facility]/ZIP Code Phon e Number [facility] [address] [place] [address] SERVICES [facility] [address] [place] [address] MAGNESIUM (05/17/2008 2:30 EDT) Pathologist Sig nature Magnesium 2.1 1.7 - 2.8 mg/dl [facility] Specimen Performing Organization Address [facility]/ZIP Code Phon e Number [facility] [address] [place] [address] SERVICES [facility] [address] [place] [address] CREATININE (05/17/2008 2:30 EDT) Pathologist Sig nature Creatinine 0.40 0.1 - 0.7 mg/dl [facility] GFR, Calculated Age <18 ml/min/1.73m2 [facility] Specimen Performing Organization Address [facility]/ZIP Code Phon e Number [facility] [address] [place] [address] SERVICES [facility] [address] [place] [address] BUN (05/17/2008 2:30 EDT) Pathologist Sig nature BUN 11 7 - 18 mg/dl [facility] Specimen Performing Organization Address City/State/ZIP Code Phon e Number [facility] [address] [place] [address] SERVICES [facility] [address] [place] [address] TOTAL & DIRECT BILIRUBIN (05/17/2008 2:30 EDT) Pathologist Sig nature Conjugated Bilirubin 0.0 0.0 - 0.3 mg/dl [facility] B Unconjugated Bilirubin 0.7 0.1 - 1.1 mg/dl [facility] Bilirubin, Total 0.5 0.0 - 1.4 mg/dl [facility] Specimen Performing Organization Address City/[facility]/ZIP Code Phon e Number [facility] [address] [place] [address] SERVICES [facility] [address] [place] [address] AST (05/17/2008 2:30 EDT) Pathologist Sig nature AST 24 23 - 58 U/L [facility] Specimen Performing Organization Address City/[facility]/ZIP Code Phon e Number [facility] [address] [place] [address] SERVICES [facility] [address] [place] [address] ALT (05/17/2008 2:30 EDT) Pathologist Sig nature ALT <11 10 - 25 U/L [facility] Specimen Performing Organization Address City/State/ZIP Code Phon e Number [facility] [address] [place] [address] SERVICES [facility] [address] [place] [address] (ABNORMAL) CALCIUM (05/17/2008 2:30 EDT) Pathologist Sig nature Calcium 8.1 (L) 8.8 - 11.1 mg/dl [facility] Calculated Calcium 9.4 8.8 - 11.1 mg/dl [facility] Specimen Performing Organization Address City/[facility]/ZIP Code Phon e Number [facility] [address] [place] [address] SERVICES [facility] [address] [place] [address] ELECTROLYTES (05/17/2008 2:30 EDT) Pathologist Sig nature Sodium 141 136 - 145 mEq/L [facility] Potassium 4.1 3.6 - 5.2 mEq/L [facility] Chloride 108 96 - 110 mEq/L [facility] CO2 26 24 - 32 mEq/L [facility] Specimen Performing Organization Address City/[facility]/ZIP Code Phon e Number [facility] [address] [place] [address] SERVICES [facility] [address] [place] [address] REFRACTOMETER SPECIFIC GRAVITY, URINE (05/16/2008 19:05 EDT) Pathologist Sig nature Refractometer SG,Urine 1.010 1.005 - 1.02 [facility] Specimen Performing Organization Address City/[facility] Phon e Number [facility] [address] [place] [address] SERVICES [facility] [address] [place] [address] UA REFLEX (05/16/2008 19:05 EDT) Pathologist Sig nature UA Billing Microscopic not [facility] indicated. Specimen Performing Organization Address [facility] Phon e Number [facility] [address] [place] [address] SERVICES [facility] [address] [place] [address] (ABNORMAL) URINALYSIS, CHEMICAL (05/16/2008 19:05 EDT) Pathologist Sig nature Color, UA Yellow [facility] Clarity, UA Clear [facility] Glucose, UA Norm NORM [facility] Bilirubin, UA Neg NEG [facility] Ketones, UA Neg NEG [facility] Specific [place], <1.005 (L) 1.005 - 1.02 [facility] Urine Blood, UA Neg NEG [facility] pH, UA 7.0 5.0 - 9.0 [facility] Protein, UA Neg NEG [facility] Urobilinogen, UA Norm NORM mg/dL [facility] Nitrite, UA Neg NEG [facility] Leuk Esterase Neg NEG [facility] Specimen Performing Organization Address City/[facility]/ZIP [facility] Phon e Number [facility] [address] [place] [address] SERVICES [facility] [address] [place] [address] (ABNORMAL) URIC ACID (05/16/2008 14:00 EDT) Pathologist Sig nature Uric Acid 1.4 (L) 2.2 - 4.7 mg/dl [facility] Specimen Performing Organization Address [facility]/ZIP Code Phon e Number [facility] [address] [place] [address] SERVICES [facility] [address] [place] [address] PHOSPHORUS (05/16/2008 14:00 EDT) Pathologist Sig nature Phosphorus 4.6 4.1 - 5.4 mg/dl [facility] Specimen Performing Organization Address City/[facility]/ZIP Code Phon e Number [facility] [address] [place] [address] SERVICES [facility] [address] [place] [address] CREATININE (05/16/2008 14:00 EDT) Pathologist Sig nature Creatinine 0.40 0.1 - 0.7 mg/dl [facility] GFR, Calculated Age <18 ml/min/1.73m2 [facility] Specimen Performing Organization Address [facility] Code Phon e Number [facility] [address] [place] [address] SERVICES [facility] [address] [place] [address] BUN (05/16/2008 14:00 EDT) Pathologist Sig nature BUN 12 7 - 18 mg/dl [facility] Specimen Performing Organization Address [facility] Code Phon e Number [facility] [address] [place] [address] SERVICES [facility] [address] [place] [address] ELECTROLYTES (05/16/2008 14:00 EDT) Pathologist Sig nature Sodium 141 136 - 145 mEq/L [facility] Potassium 4.2 3.6 - 5.2 mEq/L [facility] Chloride 105 96 - 110 mEq/L [facility] CO2 29 24 - 32 mEq/L [facility] Specimen Performing Organization Address [facility]/ZIP [facility] Phon e Number [facility] [address] [place] [address] SERVICES [facility] [address] [place] [address] REFRACTOMETER SPECIFIC GRAVITY, URINE (05/16/2008 11:30 EDT) Pathologist Sig nature Refractometer SG,Urine 1.008 1.005 - 1.02 [facility] Specimen Performing Organization Address City/State/ZIP Code Phon e Number [facility] [address] [place] [address] SERVICES [facility] [address] [place] [id number] UA REFLEX (05/16/2008 11:30 EDT) Pathologist Sig nature UA Billing Microscopic not [facility] indicated. Specimen Performing Organization Address City/[facility]/ZIP Code Phon e Number [facility] [address] [place] [address] SERVICES [facility] [address] [place] [address] URINALYSIS, CHEMICAL (05/16/2008 11:30 EDT) Color, UA Straw [facility]ESSICA [facility] Clarity, UA Clear [facility] Glucose, UA Norm NORM [facility] Bilirubin, UA Neg NEG [facility] Ketones, UA Neg NEG [facility] Specific [place], 1.010 1.005 - 1.02 [facility] Urine Blood, UA Neg NEG [facility] pH, UA 7.5 5.0 - 9.0 [facility] Protein, UA Neg NEG [facility] Urobilinogen, UA Norm NORM mg/dL [facility] Nitrite, UA Neg NEG [facility] Leuk Esterase Neg NEG [facility] Comment Small sample, [facility] less than 12 ml received. Specimen Performing Organization Address City/State/ZIP Code Phon e Number [facility] [address] [place] [address] SERVICES [facility] [address] [place] [id number] UA REFLEX (05/16/2008 4:35 EDT) Pathologist Sig nature UA Billing Microscopic not [facility] indicated. Specimen Performing Organization Address City/State/ZIP Code Phon e Number [facility] [address] [place] [address] SERVICES [facility] [address] [place] [address] URINALYSIS, CHEMICAL (05/16/2008 4:35 EDT) Pathologist Sig nature Color, UA Yellow [facility] Clarity, UA Clear [facility] Glucose, UA Norm NORM [facility] Bilirubin, UA Neg NEG [facility] Ketones, UA Neg NEG [facility] Specific [place], Urine 1.010 1.005 - 1.02 [facility] B Blood, UA Neg NEG [facility] pH, UA 6.5 5.0 - 9.0 [facility] Protein, UA Neg NEG [facility] Urobilinogen, UA Norm NORM mg/dL [facility] Nitrite, UA Neg NEG [facility] Leuk Esterase Neg NEG [facility] Specimen Performing Organization Address [facility] Phon e Number [facility] [address] [place] [address] SERVICES [facility] [address] [place] [address] (ABNORMAL) URIC ACID (05/16/2008 4:00 EDT) Pathologist Sig nature Uric Acid 1.8 (L) 2.2 - 4.7 mg/dl [facility] Specimen Performing Organization Address [facility] Phon e Number [facility] [address] [place] [address] SERVICES [facility] [address] [place] [address] PHOSPHORUS (05/16/2008 4:00 EDT) Pathologist Sig nature Phosphorus 5.2 4.1 - 5.4 mg/dl [facility] Specimen Performing Organization Address [facility] Phon e Number [facility] [address] [place] [address] SERVICES [facility] [address] [place] [address] CREATININE (05/16/2008 4:00 EDT) Pathologist Sig nature Creatinine 0.40 0.1 - 0.7 mg/dl [facility] GFR, Calculated Age <18 ml/min/1.73m2 [facility] Specimen Performing Organization Address [facility] Phon e Number [facility] [address] [place] [address] SERVICES [facility] [address] [place] [address] BUN (05/16/2008 4:00 EDT) Pathologist Sig nature BUN 12 7 - 18 mg/dl [facility] Specimen Performing Organization [facility]ZIP Code Phon e Number [facility] [address] [place] [address] SERVICES [facility] [address] [place] [address] (ABNORMAL) CALCIUM (05/16/2008 4:00 EDT) Pathologist Sig nature Calcium 8.2 (L) 8.8 - 11.1 mg/dl [facility] Calculated Calcium 9.4 8.8 - 11.1 mg/dl [facility] Specimen Performing Organization Address City/[facility]/ZIP Code Phon e Number [facility] [address] [place] [address] SERVICES [facility] [address] [place] [address] ELECTROLYTES (05/16/2008 4:00 EDT) Pathologist Sig nature Sodium 142 136 - 145 mEq/L [facility] Potassium 4.3 3.6 - 5.2 mEq/L [facility] Chloride 107 96 - 110 mEq/L [facility] CO2 28 24 - 32 mEq/L [facility] Specimen Performing Organization Address City/[facility]/ZIP Code Phon e Number [facility] [address] [place] [address] SERVICES [facility] [address] [place] [address] (ABNORMAL) HEMAGRAM AND DIFFERENTIAL (05/16/2008 4:00 EDT) WBC 4.07 (L) 4.5 - 13.5 [facility] K/cmm LAB RBC 1.99 (L) 4.00 - 6.20 [facility] M/cmm LAB Hemoglobin 6.5 (LL) 11.5 - 15.5 [facility] gm/dl LAB HCT 17.9 (LL) 35.0 - 45.0 % [facility] MCV 90 77 - 95 fl [facility] MCH 32.8 pg [facility] MCHC 36.5 gm/dl [facility] PLT 60 (L) 156 - 312 [facility] K/cmm LAB RDW-CV 18.3 % [facility] Neutrophils 2.0 % [facility] Lymphocytes 59.0 % [facility] Monocytes 3.0 % [facility] Promyelocytes 2.0 % [facility] Blasts 34.0 (HH) % [facility] Nucleated RBC's 1 /100 WBC'S [facility] ABS Neutrophils 0.08 (LL) K/cmm [facility] ABS Lymphs 2.41 K/cmm [facility] ABS Monocytes 0.12 K/cmm [facility] ABS Promyelocytes 0.08 K/cmm [facility] ABS Blasts 1.38 K/cmm [facility] RBC Morphology 1+ Anisocytosis [facility] Comment Reviewed by Dr. [facility] Type of Diff: Manual [facility] Specimen Performing Organization Address City/[facility]/ZIP Code Phon e Number [facility] [address] [place] [address] SERVICES [facility] [address] [place] [address] UA REFLEX (05/15/2008 21:35 EDT) Pathologist Sig nature UA Billing Microscopic not [facility] indicated. Specimen Performing Organization Address [facility]/ZIP Code Phon e Number [facility] [address] [place] [address] SERVICES [facility] [address] [place] [address] URINALYSIS, CHEMICAL (05/15/2008 21:35 EDT) Pathologist Sig nature Color, UA Straw [facility] Clarity, UA Clear [facility] Glucose, UA Norm NORM [facility] Bilirubin, UA Neg NEG [facility] Ketones, UA Neg NEG [facility] Specific [place], Urine 1.010 1.005 - 1.02 [facility] B Blood, UA Neg NEG [facility] pH, UA 7.0 5.0 - 9.0 [facility] Protein, UA Neg NEG [facility] Urobilinogen, UA Norm NORM mg/dL [facility] Nitrite, UA Neg NEG [facility] Leuk Esterase Neg NEG [facility] Specimen Performing Organization Address City/[facility]/ZIP Code Phon e Number [facility] [address] [place] [address] SERVICES [facility] [address] [place] [address] (ABNORMAL) CALCIUM (05/15/2008 20:10 EDT) Pathologist Sig nature Calcium 8.1 (L) 8.8 - 11.1 mg/dl [facility] Calculated Calcium 9.0 8.8 - 11.1 mg/dl [facility] Specimen Performing Organization Address [facility] Code Phon e Number [facility] [address] [place] [address] SERVICES [facility] [address] [place] [address] (ABNORMAL) URIC ACID (05/15/2008 20:10 EDT) Pathologist Sig nature Uric Acid 1.9 (L) 2.2 - 4.7 mg/dl [facility] Specimen Performing Organization Address [facility] Phon e Number [facility] [address] [place] [address] SERVICES [facility] [address] [place] [address] (ABNORMAL) PHOSPHORUS (05/15/2008 20:10 EDT) Pathologist Sig nature Phosphorus 5.9 (H) 4.1 - 5.4 mg/dl [facility] Specimen Performing Organization Address [facility] Phon e Number [facility] [address] [place] [address] SERVICES [facility] [address] [place] [address] CREATININE (05/15/2008 20:10 EDT) Pathologist Sig nature Creatinine 0.50 0.1 - 0.7 mg/dl [facility] GFR, Calculated Age <18 ml/min/1.73m2 [facility] Specimen Performing Organization Address [facility]/ZIP [facility] Phon e Number [facility] [address] [place] [address] SERVICES [facility] [address] [place] [address] BUN (05/15/2008 20:10 EDT) Pathologist Sig nature BUN 14 7 - 18 mg/dl [facility] Specimen Performing Organization Address [facility] Phon e Number [facility] [address] [place] [address] SERVICES [facility] [address] [place] [address] ELECTROLYTES (05/15/2008 20:10 EDT) Pathologist Sig nature Sodium 142 136 - 145 mEq/L [facility] Potassium 3.7 3.6 - 5.2 mEq/L [facility] Chloride 105 96 - 110 mEq/L [facility] CO2 26 24 - 32 mEq/L [facility] Specimen Performing Organization Address City/[facility]/ZIP Code Phon e Number [facility] [address] [place] [address] SERVICES [facility] [address] [place] [address] UA REFLEX (05/15/2008 16:00 EDT) Pathologist Sig nature UA Billing Microscopic not [facility] indicated. Specimen Performing Organization Address [facility] Phon e Number [facility] [address] [place] [address] SERVICES [facility] [address] [place] [address] (ABNORMAL) URINALYSIS, CHEMICAL (05/15/2008 16:00 EDT) Pathologist Sig nature Color, UA Straw [facility] Clarity, UA Clear [facility] Glucose, UA Norm NORM [facility] Bilirubin, UA Neg NEG [facility] Ketones, UA Neg NEG [facility] Specific [place], <1.005 (L) 1.005 - 1.02 [facility] Urine Blood, UA Neg NEG [facility] pH, UA 7.5 5.0 - 9.0 [facility] Protein, UA Neg NEG [facility] Urobilinogen, UA Norm NORM mg/dL [facility] Nitrite, UA Neg NEG [facility] Leuk Esterase Neg NEG [facility] Specimen Performing Organization Address [facility] Code Phon e Number [facility] [address] [place] [address] SERVICES [facility] [address] [place] [address] URIC ACID (05/15/2008 11:30 EDT) Uric Acid 2.5Comment: 2.2 - 4.7 mg/dl [facility] Heparinized plasma. Specimen Performing Organization Address [facility]/ZIP [facility] Phon e Number [facility] [address] [place] [address] SERVICES [facility] [address] [place] [address] (ABNORMAL) PHOSPHORUS (05/15/2008 11:30 EDT) Phosphorus 5.8 (H)Comment: 4.1 - 5.4 mg/dl [facility] Heparinized plasma. Specimen Performing Organization Address City/State/ZIP Code Phon e Number [facility] [address] [place] [address] SERVICES [facility] [address] [place] [address] CREATININE (05/15/2008 11:30 EDT) Creatinine 0.42Comment: 0.1 - 0.7 [facility] Heparinized plasma. mg/dl LAB GFR, Calculated Age <18 ml/min/1.73m2 [facility] Heparinized plasma. LAB Specimen Performing Organization Address City/State/ZIP Code Phon e Number [facility] [address] [place] [address] SERVICES [facility] [address] [place] [address] BUN (05/15/2008 11:30 EDT) Pathologist Sig nature BUN 10Comment: Heparinized 7 - 18 mg/dl [facility] plasma. Specimen Performing Organization Address City/[facility]/ZIP Code Phon e Number [facility] [address] [place] [address] SERVICES [facility] [address] [place] [address] ELECTROLYTES (05/15/2008 11:30 EDT) Sodium 139Comment: 136 - 145 mEq/L [facility] Heparinized plasma. Potassium 4.0Comment: 3.6 - 5.2 mEq/L [facility] Heparinized plasma. Chloride 105Comment: 96 - 110 mEq/L [facility] Heparinized plasma. CO2 28Comment: 24 - 32 mEq/L [facility] Heparinized plasma. Specimen Performing Organization Address City/State/ZIP Code Phon e Number [facility] [address] [place] [address] SERVICES [facility] [address] [place] [address] UA REFLEX (05/15/2008 9:20 EDT) Pathologist Sig nature UA Billing Microscopic not [facility] indicated. Specimen Performing Organization Address City/State/ZIP Code Phon e Number [facility] [address] [place] [address] SERVICES [facility] [address] [place] [address] URINALYSIS, CHEMICAL (05/15/2008 9:20 EDT) Pathologist Sig nature Color, UA Yellow [facility] Clarity, UA Clear [facility] Glucose, UA Norm NORM [facility] Bilirubin, UA Neg NEG [facility] Ketones, UA Neg NEG [facility] Specific [place], Urine 1.010 1.005 - 1.02 [facility] B Blood, UA Neg NEG [facility] pH, UA 7.5 5.0 - 9.0 [facility] Protein, UA Neg NEG [facility] Urobilinogen, UA Norm NORM mg/dL [facility] Nitrite, UA Neg NEG [facility] Leuk Esterase Neg NEG [facility] Specimen Performing Organization Address City/State/ZIP Code Phon e Number [facility] [address] [place] [address] SERVICES [facility] [address] [place] [address] (ABNORMAL) HEMAGRAM AND DIFFERENTIAL (05/15/2008 4:30 EDT) WBC 19.35 (H) 4.5 - 13.5 [facility] K/cmm RBC 2.91 (L) 4.00 - 6.20 [facility] M/cmm Hemoglobin 9.5 (L) 11.5 - 15.5 [facility] gm/dl HCT 26.5 (L) 35.0 - 45.0 % [facility] MCV Not calculated 77 - 95 fl [facility] MCH 32.7 pg [facility] MCHC 36.0 gm/dl [facility] PLT 79 (L) 156 - 312 [facility] K/cmm RDW-CV 18.1 % [facility] Neutrophils 1.0 % [facility] Lymphocytes 18.0 % [facility] Atyp Lymphs 2.0 % [facility] Blasts 79.0 (HH) % [facility] ABS Neutrophils 0.19 (LL) K/cmm [facility] ABS Lymphs 3.48 K/cmm [facility] ABS Atyp Lymphs 0.39 K/cmm [facility] ABS Blasts 15.29 K/cmm [facility] RBC Morphology 1+ Anisocytosis [facility] 1+ Microcytes 1+ Poikilocytosis 1+ Ovalocytes WBC Morphology 1+ Smudge cells [facility] Type of Diff: Manual [facility] Specimen Performing Organization Address [facility]/ZIP Code Phon e Number [facility] [address] [place] [address] SERVICES [facility] [address] [place] [address] URIC ACID (05/15/2008 4:30 EDT) Pathologist Sig nature Uric Acid 3.2 2.2 - 4.7 mg/dl [facility] Specimen Performing Organization Address [facility] Phon e Number [facility] [address] [place] [address] SERVICES [facility] [address] [place] [address] GLUCOSE, SERUM (05/15/2008 4:30 EDT) Pathologist Sig nature Glucose, Serum 94 70 - 100 mg/dl [facility] Specimen Performing Organization Address [facility] Phon e Number [facility] [address] [place] [address] SERVICES [facility] [address] [place] [address] (ABNORMAL) PHOSPHORUS (05/15/2008 4:30 EDT) Pathologist Sig nature Phosphorus 6.7 (H) 4.1 - 5.4 mg/dl [facility] Specimen Performing Organization Address [facility] Phon e Number [facility] [address] [place] [address] SERVICES [facility] [address] [place] [address] MAGNESIUM (05/15/2008 4:30 EDT) Pathologist Sig nature Magnesium 2.0 1.7 - 2.8 mg/dl [facility] Specimen Performing Organization Address [facility]/ZIP [facility] Phon e Number [facility] [address] [place] [address] SERVICES [facility] [address] [place] [address] CREATININE (05/15/2008 4:30 EDT) Pathologist Sig nature Creatinine 0.50 0.1 - 0.7 mg/dl [facility] GFR, Calculated Age <18 ml/min/1.73m2 [facility] Specimen Performing Organization Address [facility]/ZIP Code Phon e Number [facility] [address] [place] [address] SERVICES [facility] [address] [place] [address] BUN (05/15/2008 4:30 EDT) Pathologist Sig nature BUN 11 7 - 18 mg/dl [facility] Specimen Performing Organization Address City/State/ZIP Code Phon e Number [facility] [address] [place] [address] SERVICES [facility] [address] [place] [address] TOTAL & DIRECT BILIRUBIN (05/15/2008 4:30 EDT) Pathologist Sig nature Conjugated Bilirubin 0.0 0.0 - 0.3 mg/dl [facility] B Unconjugated Bilirubin 0.5 0.1 - 1.1 mg/dl [facility] Bilirubin, Total <0.5 0.0 - 1.4 mg/dl [facility] Specimen Performing Organization Address City/[facility]/ZIP Code Phon e Number [facility] [address] [place] [address] SERVICES [facility] [address] [place] [address] AST (05/15/2008 4:30 EDT) Pathologist Sig nature AST 33 23 - 58 U/L [facility] Specimen Performing Organization Address City/[facility]/ZIP Code Phon e Number [facility] [address] [place] [address] SERVICES [facility] [address] [place] [address] ALT (05/15/2008 4:30 EDT) Pathologist Sig nature ALT <11 10 - 25 U/L [facility] Specimen Performing Organization Address [facility]/ZIP Code Phon e Number [facility] [address] [place] [address] SERVICES [facility] [address] [place] [address] ELECTROLYTES (05/15/2008 4:30 EDT) Pathologist Sig nature Sodium 141 136 - 145 mEq/L [facility] Potassium 3.7 3.6 - 5.2 mEq/L [facility] Chloride 103 96 - 110 mEq/L [facility] CO2 29 24 - 32 mEq/L [facility] Specimen Performing Organization Address City/[facility]/ZIP Code Phon e Number [facility] [address] [place] [address] SERVICES [facility] [address] [place] [address] UA REFLEX (05/15/2008 2:15 EDT) Pathologist Sig nature UA Billing Microscopic not [facility] indicated. Specimen Performing Organization Address [facility] Phon e Number [facility] [address] [place] [address] SERVICES [facility] [address] [place] [address] URINALYSIS, CHEMICAL (05/15/2008 2:15 EDT) Pathologist Sig nature Color, UA Straw [facility] Clarity, UA Clear [facility] Glucose, UA Norm NORM [facility] Bilirubin, UA Neg NEG [facility] Ketones, UA Neg NEG [facility] Specific [place], Urine 1.010 1.005 - 1.02 [facility] Blood, UA Neg NEG [facility] pH, UA 7.0 5.0 - 9.0 [facility] Protein, UA Neg NEG [facility] Urobilinogen, UA Norm NORM mg/dL [facility] Nitrite, UA Neg NEG [facility] Leuk Esterase Neg NEG [facility] Specimen Performing Organization Address City/[facility]/ZIP Code Phon e Number [facility] [address] [place] [address] SERVICES [facility] [address] [place] [address] BACTERIAL CULTURE, BLOOD (05/14/2008 22:30 EDT) Pathologist Sig nature Specimen Description Blood [facility] [place] Result No growth [facility] Report Status Final [facility] [id number] Specimen Performing Organization Address [facility] Phon e Number [facility] [address] [place] [address] SERVICES [facility] [address] [place] [address] BACTERIAL CULTURE, BLOOD (05/14/2008 22:30 EDT) Pathologist Sig nature Specimen Description Blood [facility] [place]ac [place] Result No growth [facility] Report Status Final [facility] [id number] Specimen Performing Organization Address [facility]/ZIP Code Phon e Number [facility] [address] [place] [address] SERVICES [facility] [address] [place] [address] UA REFLEX (05/14/2008 21:15 EDT) Pathologist Sig nature UA Billing Microscopic not [facility] indicated. Specimen Performing Organization Address [facility] Phon e Number [facility] [address] [place] [address] SERVICES [facility] [address] [place] [address] (ABNORMAL) URINALYSIS, CHEMICAL (05/14/2008 21:15 EDT) Pathologist Sig nature Color, UA Yellow [facility] Clarity, UA Clear [facility] Glucose, UA Norm NORM [facility] Bilirubin, UA Neg NEG [facility] Ketones, UA Neg NEG [facility] Specific [place], <1.005 (L) 1.005 - 1.02 [facility] Urine Blood, UA Neg NEG [facility] pH, UA 7.0 5.0 - 9.0 [facility] Protein, UA Neg NEG [facility] Urobilinogen, UA Norm NORM mg/dL [facility] Nitrite, UA Neg NEG [facility] Leuk Esterase Neg NEG [facility] Specimen Performing Organization Address City/[facility]/ZIP Code Phon e Number [facility] [address] [place] [address] SERVICES [facility] [address] [place] [address] URIC ACID (05/14/2008 20:15 EDT) Pathologist Sig nature Uric Acid 2.8 2.2 - 4.7 mg/dl [facility] Specimen Performing Organization Address City/[facility]/ZIP Code Phon e Number [facility] [address] [place] [address] SERVICES [facility] [address] [place] [address] PHOSPHORUS (05/14/2008 20:15 EDT) Pathologist Sig nature Phosphorus 4.7 4.1 - 5.4 mg/dl [facility] Specimen Performing Organization Address City/[facility]/ZIP Code Phon e Number [facility] [address] [place] [address] SERVICES [facility] [address] [place] [address] CREATININE (05/14/2008 20:15 EDT) Pathologist Sig nature Creatinine 0.40 0.1 - 0.7 mg/dl [facility] GFR, Calculated Age <18 ml/min/1.73m2 [facility] Specimen Performing Organization Address City/[facility]/ZIP Code Phon e Number [facility] [address] [place] [address] SERVICES [facility] [address] [place] [address] BUN (05/14/2008 20:15 EDT) Pathologist Sig nature BUN 8 7 - 18 mg/dl [facility] Specimen Performing Organization Address [facility]/ZIP Code Phon e Number [facility] [address] [place] [address] SERVICES [facility] [address] [place] [address] (ABNORMAL) ELECTROLYTES (05/14/2008 20:15 EDT) Pathologist Sig nature Sodium 144 136 - 145 mEq/L [facility] Potassium 3.3 (L) 3.6 - 5.2 mEq/L [facility] Chloride 109 96 - 110 mEq/L [facility] CO2 26 24 - 32 mEq/L [facility] Specimen Performing Organization Address City/[facility]/ZIP Code Phon e Number [facility] [address] [place] [address] SERVICES [facility] [address] [place] [address] UA REFLEX (05/14/2008 19:15 EDT) Pathologist Sig nature UA Billing Microscopic not [facility] indicated. Specimen Performing Organization Address [facility]/ZIP Code Phon e Number [facility] [address] [place] [address] SERVICES [facility] [address] [place] [address] (ABNORMAL) URINALYSIS, CHEMICAL (05/14/2008 19:15 EDT) Pathologist Sig nature Color, UA Yellow [facility] Clarity, UA Clear [facility] Glucose, UA Norm NORM [facility] Bilirubin, UA Neg NEG [facility] Ketones, UA Neg NEG [facility] Specific [place], <1.005 (L) 1.005 - 1.02 [facility] Urine Blood, UA Neg NEG [facility] pH, UA 7.5 5.0 - 9.0 [facility] Protein, UA Neg NEG [facility] Urobilinogen, UA Norm NORM mg/dL [facility] Nitrite, UA Neg NEG [facility] Leuk Esterase Neg NEG [facility] Specimen Performing Organization Address City/State/ZIP Code Phon e Number [facility] [address] [place] [address] SERVICES [facility] [address] [place] [address] IR DIALYSIS OR TUNNELED CV CATHETER (05/14/2008 13:25 EDT) Anatomical Region Laterality Modality Other Specimen Narrative [facility] - 04/23/2009 11 :26 EDT leukemia double-lumen tunneled infusion catheter placement 05/14/2008, 1312 hours History: This patient has newly diagnose d an L. We are asked to place a double-lumen tunneled infusion cathete r. The procedure was performed in operating room with the anesthesiologist providing general anest hesia. Ultrasound and C-arm fluoroscopy was used. Following sterile preparation and local anesthesia the right neck and upper chest, ultrasound was performed at the right internal jugular vein showing that is patent with no evid ence of thrombus. Using ultrasound guidance, the right internal jugular vein was punctured with a 22-gauge needle. An image of the needle entering the vein was obtained the patient's permanent record. Fluoroscopic guidance was then used. A d ouble-lumen tunneled catheter was then tunneled in the soft tissues of the right upper chest to the insertion site. A sheath was placed in t he catheter trimmed to length been placed into the superior vena cava- right atrium. The patient tolerated the procedure well. The tip of the catheter lies at the caval atrial junction. Impression: 1. Successful placement of total to doub le-lumen infusion catheter, tip at cavoatrial junction. 2. Fluoroscopic and sonographic guidance used. Procedure Note Sharath Tierney MD - 04/23/2009 leukemia double-lumen tunneled infusion catheter placement 05/14/2008, 1312 hours History: This patient has newly diagnose d an L. We are asked to place a double-lumen tunneled infusion cathete r. The procedure was performed in operating room with the anesthesiologist providing general anest hesia. Ultrasound and C-arm fluoroscopy was used. Following sterile preparation and local anesthesia the right neck and upper chest, ultrasound was performed at the right internal jugular vein showing that is patent with no evid ence of thrombus. Using ultrasound guidance, the right internal jugular vein was punctured with a 22-gauge needle. An image of the needle entering the vein was obtained the patient's permanent record. Fluoroscopic guidance was then used. A d ouble-lumen tunneled catheter was then tunneled in the soft tissues of the right upper chest to the insertion site. A sheath was placed in t he catheter trimmed to length been placed into the superior vena cava- right atrium. The patient tolerated the procedure well. The tip of the catheter lies at the caval atrial junction. Impression: 1. Successful placement of total to doub le-lumen infusion catheter, tip at cavoatrial junction. 2. Fluoroscopic and sonographic guidance used. Performing Organization Address City/[facility]/ZIP Code Phon e Number [facility] [address] [facility] [address] [facility] [address] [place], [place] [address] (ABNORMAL) FLUID DIFFERENTIAL (05/14/2008 13:00 EDT) Lymphocyte, CSF 92 (H) 40 - 80 % [facility] [place], CSF 8 (L) 15 - 45 % [facility] Cells Counted 24 [facility] Comment Rev'd by Pathologist [facility] Specimen Performing Organization Address City/State/ZIP Code Phon e Number [facility] [address] [place] [address] SERVICES [facility] [address] [place] [address] CSF CELL COUNT (05/14/2008 13:00 EDT) RBC, CSF 1 /cmm [facility] Nucleated Cells None seen 0 - 10 /cmm [facility] Total Vol. 2.5 ml [facility] Tube Cntd. 2 [facility] Total Vol. 1.3 ml [facility] Comment Clear and Colorless [facility] Specimen Performing Organization Address [facility] Phon e Number [facility] [address] [place] [address] SERVICES [facility] [address] [place] [address] TOTAL PROTEIN, CSF (05/14/2008 13:00 EDT) Pathologist Sig nature Total Protein, CSF <10 mg/dl [facility] Specimen Performing Organization Address [facility] Phon e Number [facility] [address] [place] [address] SERVICES [facility] [address] [place] [address] GLUCOSE CSF (05/14/2008 13:00 EDT) Pathologist Sig nature Glucose, CSF 50 mg/dl [facility] Comment: Ref Range=60-80% of plasma glucose result Specimen Performing Organization Address [facility] Phon e Number [facility] [address] [place] [address] SERVICES [facility] [address] [place] [address] GLUCOSE, SERUM (05/14/2008 4:30 EDT) Pathologist Sig nature Glucose, Serum 91 70 - 100 mg/dl [facility] Specimen Performing Organization Address [facility] Phon e Number [facility] [address] [place] [address] SERVICES [facility] [address] [place] [address] PHOSPHORUS (05/14/2008 4:30 EDT) Pathologist Sig nature Phosphorus 4.9 4.1 - 5.4 mg/dl [facility] Specimen Performing Organization Address [facility] Phon e Number [facility] [address] [place] [address] SERVICES [facility] [address] [place] [address] MAGNESIUM (05/14/2008 4:30 EDT) Pathologist Sig nature Magnesium 2.1 1.7 - 2.8 mg/dl [facility] Specimen Performing Organization Address [facility] Phon e Number [facility] [address] [place] [address] SERVICES [facility] [address] [place] [address] CREATININE (05/14/2008 4:30 EDT) Pathologist Sig nature Creatinine 0.40 0.1 - 0.7 mg/dl [facility] GFR, Calculated Age <18 ml/min/1.73m2 [facility] Specimen Performing Organization Address City/[facility]/ZIP Code Phon e Number [facility] [address] [place] [address] SERVICES [facility] [address] [place] [address] BUN (05/14/2008 4:30 EDT) Pathologist Sig nature BUN 9 7 - 18 mg/dl [facility] Specimen Performing Organization Address [facility] Phon e Number [facility] [address] [place] [address] SERVICES [facility] [address] [place] [address] TOTAL & DIRECT BILIRUBIN (05/14/2008 4:30 EDT) Pathologist Sig nature Conjugated Bilirubin 0.0 0.0 - 0.3 mg/dl [facility] B Unconjugated Bilirubin 0.4 0.1 - 1.1 mg/dl [facility] Bilirubin, Total <0.5 0.0 - 1.4 mg/dl [facility] Specimen Performing Organization Address [facility]/ZIP Code Phon e Number [facility] [address] [place] [address] SERVICES [facility] [address] [place] [address] AST (05/14/2008 4:30 EDT) Pathologist Sig nature AST 29 23 - 58 U/L [facility] Specimen Performing Organization Address City/[facility]/ZIP Code Phon e Number [facility] [address] [place] [address] SERVICES [facility] [address] [place] [address] ALT (05/14/2008 4:30 EDT) Pathologist Sig nature ALT <11 10 - 25 U/L [facility] Specimen Performing Organization Address City/[facility]/ZIP Code Phon e Number [facility] [address] [place] [address] SERVICES [facility] [address] [place] [address] ELECTROLYTES (05/14/2008 4:30 EDT) Pathologist Sig nature Sodium 142 136 - 145 mEq/L [facility] Potassium 3.6 3.6 - 5.2 mEq/L [facility] Chloride 107 96 - 110 mEq/L [facility] CO2 30 24 - 32 mEq/L [facility] Specimen Performing Organization Address [facility] Phon e Number [facility] [address] [place] [address] SERVICES [facility] [address] [place] [address] (ABNORMAL) HEMAGRAM AND DIFFERENTIAL (05/14/2008 4:30 EDT) WBC 34.93 (H) 4.5 - 13.5 [facility] K/cmm RBC 2.39 (L) 4.00 - 6.20 [facility] M/cmm Hemoglobin 7.7 (L) 11.5 - 15.5 [facility] gm/dl HCT 21.7 (L) 35.0 - 45.0 % [facility] MCV 91 77 - 95 fl [facility] MCH 32.4 pg [facility] MCHC 35.6 gm/dl [facility] PLT 38 (L) 156 - 312 K/cmm [facility] RDW-CV Not Available % [facility] Neutrophils 0.0 % [facility] Lymphocytes 17.0 % [facility] Atyp Lymphs 2.0 % [facility] Blasts 81.0 (HH) % [facility] ABS Neutrophils 0.00 (LL) K/cmm [facility] ABS Lymphs 5.94 K/cmm [facility] ABS Atyp Lymphs 0.70 K/cmm [facility] ABS Blasts 28.29 K/cmm [facility] RBC Morphology 1+ Anisocytosis [facility] 1+ Microcytes WBC Morphology 1+ Smudge cells [facility] Type of Diff: Manual [facility] Specimen Performing Organization Address [facility] Code Phon e Number [facility] [address] [place] [address] SERVICES [facility] [address] [place] [address] UA REFLEX (05/13/2008 18:45 EDT) Pathologist Sig nature UA Billing Microscopic not [facility] indicated. Specimen Performing Organization Address City/[facility]/ZIP Code Phon e Number [facility] [address] [place] [id number] SERVICES [facility] [address] [place] [address] (ABNORMAL) URINALYSIS, CHEMICAL (05/13/2008 18:45 EDT) Pathologist Sig nature Color, UA Yellow [facility] Clarity, UA Clear [facility] Glucose, UA Norm NORM [facility] Bilirubin, UA Neg NEG [facility] Ketones, UA Neg NEG [facility] Specific [place], <1.005 (L) 1.005 - 1.02 [facility] Urine Blood, UA Neg NEG [facility] pH, UA 6.0 5.0 - 9.0 [facility] Protein, UA Neg NEG [facility] Urobilinogen, UA Norm NORM mg/dL [facility] Nitrite, UA Neg NEG [facility] Leuk Esterase Neg NEG [facility] Specimen Performing Organization Address City/[facility]/ZIP Code Phon e Number [facility] [address] [place] [id number] SERVICES [facility] [address] [place] [address] UA REFLEX (05/13/2008 16:15 EDT) Pathologist Sig nature UA Billing Microscopic not [facility] indicated. Specimen Performing Organization Address City/[facility]/ZIP Code Phon e Number [facility] [address] [place] [address] SERVICES [facility] [address] [place], [place] [id number] URINALYSIS, CHEMICAL (05/13/2008 16:15 EDT) Pathologist Sig nature Color, UA Yellow [facility] Clarity, UA Clear [facility] Glucose, UA Norm NORM [facility] Bilirubin, UA Neg NEG [facility] Ketones, UA Neg NEG [facility] Specific [place], Urine 1.010 1.005 - 1.02 [facility] B Blood, UA Neg NEG [facility] pH, UA 8.0 5.0 - 9.0 [facility] Protein, UA Neg NEG [facility] Urobilinogen, UA Norm NORM mg/dL [facility] Nitrite, UA Neg NEG [facility] Leuk Esterase Neg NEG [facility] Specimen Performing Organization Address City/State/ZIP Code Phon e Number [facility] [address] [place] [address] SERVICES [facility] [address] [place] [address] ECHOCARDIOGRAM (05/13/2008 14:45 EDT) Specimen Narrative [facility] - 04/23/2009 14 :22 EDT color/pulse Doppler Site Location: Date of Appt: Tuesday, May 13, 2008, 2:4 5 PM Pediatric Echocardiogram Report Demographics and Visit Data: : 2000. ??Age: 8y/0m/9d. ??BSA ( m 2): 0.92. ??Height (cm): 124. Weight (kg): 24.8. ??BMI (kg/m 2): 16.13 . ??Patient location: [place] [address]. Height Centile: 94.45. ??Weight Centile: 91.55. ??Person requesting test: JULIET MUÑOZ MD. Intelligence Agent: Lexy Payan. ??Reason for test: color/pulse Doppler. Referral diagnosis: leukemia : baseline echocardiogram pre chemotherapy. O2 Sat: 98. ??Procedure Description: 2D ECHOCARDIOGRAM W/WO M-MODE. Summary: No structural abnormality identified. Normal chamber sizes and ventricular sys tolic function. Normal Doppler study. Normal proximal coronary arteries. The atrioventricular and semilunar valve anatomy and function are normal. There are no atrial, ventricular or duct al shunts. No coarctation detected. Pulmonary and systemic venous connection s are normal. Atrial Situs: Solitus Ventricular Situs: D - Looped Arterial Situs: Solitus Findings: Veins and Atria: (No abnormalities seen) A-V Canal: >> Normal Mitral Valve >> Normal Tricuspid Valve Ventricles: >> Left ventricular dysfunction, ruled o ut No regional wall motion abnormalities id entified. >> Left ventricular dilation or enlargem ent, ruled out >> Right ventricular dysfunction global, ruled out Qualitatively good right ventricular sys tolic function. >> Right ventricular dilation or enlarge ment, ruled out Conotruncus: >> Valvar aortic stenosis, ruled out >> Valvar pulmonary stenosis, ruled out Great Arteries: (No abnormalities seen) Pericardium: (No abnormalities seen) Other: >> No significant heart disease Measures: Systemic Arterial Function: Name ? Value ?Units ?Z-Score ?Min ?Max Systolic BP ? 101 ?mmH g ? 0.38 ?77.85 ?? 116.61 Diastolic BP ? 60 ? mmH g ? 0.95 ?33.38 ?? 69.28 Pulse Pressure ? 41.00 ?mmHg Mean BP ? 73.7 ? mmHg ? 0.05 ?55.24 ?? 91.28 M-Mode: Name ? Value ?Units ?Z-Score ?Min ?Max LV Diastolic Septal Thickness ? 0.88 ? cm ? 1.38 ?0.51 ?0.97 LV Diastolic Dimension ? 4.06 ? cm ? 1.08 ?3.16 ?4.37 LV Diastolic Wall Thickness ? 0.67 ? cm ? -0.05 ? 0.52 ?0.87 LV Systolic Dimension ? 2.29 ? cm ? -0.47 ? 1.96 ?2.95 LV Fractional Shortening ? 43.60 ?% ?3.46 ?30.29 ?? 39.95 LV Systolic Function: Name ? Value ?Units ?Z-Score ?Min ?Max Endocardial FS ? 43.60 ?% ?3.46 ?30.29 ?? 39.95 FS Vs Stress ? 43.60 ?% Cardiac Geometry: Name ? Value ?Units ?Z-Score ?Min ?Max M-Mode LV Mass ? 91.82 ?g ?1.4 ? 46.78 ?? 102.94 M-Mode LV Mass Index ? 99.8 ? g/m 2 LV Midwall Diastolic Dimension ? 4.73 ? cm M-Mode LV Mass / Height ? 74.05 ?g/m M-Mode LV Mass / Height 2.7 ? 51.37 ?g/m ?19.4 ?38.6 Aorta: Name ? Value ?Units ?Z-Score ?Min ?Max Ao Annulus Diameter ? 1.63 ? cm ? 1.21 ?1.18 ?1.74 Ao Root Diameter ? 1.86 ? cm ? -0.24 ? 1.49 ?2.33 AV Area (using Diameter) ? 2.09 ? cm 2 Sinotubular Junction Diameter ? 1.51 ? cm ? -0.66 ? 1.28 ?1.98 Analysis Aortic Valve Doppler: Name ? Value ?Units AV Area (using Diameter) ? 2.09 ? cm 2 [place]'s Name: JACQUIE ADRIAN MD Date/time of reading: May 17 2008 - 9:00:23 AM Report created at 9:01:51 AM on Saturday, May 17, 2008 Procedure Note Jacquie Adrian MD - 04/23/2009 color/pulse Doppler Site Location: Date of Appt: Tuesday, May 13, 2008, 2:4 5 PM Pediatric Echocardiogram Report Demographics and Visit Data: : 2000. Age: 8y/0m/9d. BSA (m 2) : 0.92. Height (cm): 124. Weight (kg): 24.8. BMI (kg/m 2): 16.13. Patient location: [place] [address]. Height Centile: 94.45. Weight Centile: 9 1.55. Person requesting test: JULIET MUÑOZ MD. Intelligence Agent: Lexy Payan. Reason fo r test: color/pulse Doppler. Referral diagnosis: leukemia : baseline echocardiogram pre chemotherapy. O2 Sat: 98. Procedure Description: 2D EC HOCARDIOGRAM W/WO M-MODE. Summary: No structural abnormality identified. Normal chamber sizes and ventricular sys tolic function. Normal Doppler study. Normal proximal coronary arteries. The atrioventricular and semilunar valve anatomy and function are normal. There are no atrial, ventricular or duct al shunts. No coarctation detected. Pulmonary and systemic venous connection s are normal. Atrial Situs: Solitus Ventricular Situs: D - Looped Arterial Situs: Solitus Findings: Veins and Atria: (No abnormalities seen) A-V Canal: >> Normal Mitral Valve >> Normal Tricuspid Valve Ventricles: >> Left ventricular dysfunction, ruled o ut No regional wall motion abnormalities id entified. >> Left ventricular dilation or enlargem ent, ruled out >> Right ventricular dysfunction global, ruled out Qualitatively good right ventricular sys tolic function. >> Right ventricular dilation or enlarge ment, ruled out Conotruncus: >> Valvar aortic stenosis, ruled out >> Valvar pulmonary stenosis, ruled out Great Arteries: (No abnormalities seen) Pericardium: (No abnormalities seen) Other: >> No significant heart disease Measures: Systemic Arterial Function: Name Value Units Z-Score Min Max Systolic BP 101 mmHg 0.38 77.85 116.61 Diastolic BP 60 mmHg 0.95 33.38 69.28 Pulse Pressure 41.00 mmHg Mean BP 73.7 mmHg 0.05 55.24 91.28 M-Mode: Name Value Units Z-Score Min Max LV Diastolic Septal Thickness 0.88 cm 1.38 0.51 0.97 LV Diastolic Dimension 4.06 cm 1.08 3.16 4.37 LV Diastolic Wall Thickness 0.67 cm -0.05 0.52 0.87 LV Systolic Dimension 2.29 cm -0.47 1.96 2.95 LV Fractional Shortening 43.60 % 3.46 30.29 39.95 LV Systolic Function: Name Value Units Z-Score Min Max Endocardial FS 43.60 % 3.46 30.29 39.95 FS Vs Stress 43.60 % Cardiac Geometry: Name Value Units Z-Score Min Max M-Mode LV Mass 91.82 g 1.4 46.78 102.94 M-Mode LV Mass Index 99.8 g/m 2 LV Midwall Diastolic Dimension 4.73 cm M-Mode LV Mass / Height 74.05 g/m M-Mode LV Mass / Height 2.7 51.37 g/m 19.4 38.6 Aorta: Name Value Units Z-Score Min Max Ao Annulus Diameter 1.63 cm 1.21 1.18 1.74 Ao Root Diameter 1.86 cm -0.24 1.49 2.33 AV Area (using Diameter) 2.09 cm 2 Sinotubular Junction Diameter 1.51 cm -0.66 1.28 1.98 Analysis Aortic Valve Doppler: Name Value Units AV Area (using Diameter) 2.09 cm 2 [place]'s Name: NGUYỄN PAINTING,JACQUIE BAUMAN Date/time of reading: May 17 2008 - 9:00:23 AM Report created at 9:01:51 AM on Saturday, May 17, 2008 Performing Organization Address City/[facility]/ZIP Code Phon e Number [facility] [address] [facility] [address] [facility] [address] [place], [place] [address] UA REFLEX (05/13/2008 13:50 EDT) Pathologist Sig nature UA Billing Microscopic not [facility] indicated. Specimen Performing Organization Address [facility]/ZIP [facility] Phon e Number [facility] [address] [place] [address] SERVICES [facility] [address] [place] [address] URINALYSIS, CHEMICAL (05/13/2008 13:50 EDT) Pathologist Sig nature Color, UA Straw [facility] Clarity, UA Clear [facility] Glucose, UA Norm NORM [facility] Bilirubin, UA Neg NEG [facility] Ketones, UA Neg NEG [facility] Specific [place], Urine 1.010 1.005 - 1.02 [facility] Blood, UA Neg NEG [facility] pH, UA 7.0 5.0 - 9.0 [facility] Protein, UA Neg NEG [facility] Urobilinogen, UA Norm NORM mg/dL [facility] Nitrite, UA Neg NEG [facility] Leuk Esterase Neg NEG [facility] Specimen Performing Organization Address City/[facility]/ZIP Code Phon e Number [facility] [address] [place] [address] SERVICES [facility] [address] [place] [address] (ABNORMAL) HEMAGRAM AND DIFFERENTIAL (05/13/2008 12:20 EDT) WBC 31.90 (H) 4.5 - 13.5 [facility] K/cmm RBC 2.50 (L) 4.00 - 6.20 [facility] M/cmm Hemoglobin 8.1 (L) 11.5 - 15.5 [facility] gm/dl HCT 22.7 (L) 35.0 - 45.0 % [facility] MCV 91 77 - 95 fl [facility] MCH 32.4 pg [facility] MCHC 35.6 gm/dl [facility] PLT 45 (L) 156 - 312 K/cmm [facility] RDW-CV 19.0 % [facility] Neutrophils 0.0 % [facility] Lymphocytes 21.0 % [facility] Blasts 79.0 (HH) % [facility] ABS Neutrophils 0.00 (LL) K/cmm [facility] ABS Lymphs 6.70 K/cmm [facility] ABS Blasts 25.20 K/cmm [facility] RBC Morphology 1+ Anisocytosis [facility] Type of Diff: Manual [facility] Specimen Performing Organization Address City/State/ZIP Code Phon e Number [facility] [address] [place] [address] SERVICES [facility] [address] [place] [address] UA REFLEX (05/13/2008 11:15 EDT) Pathologist Sig nature UA Billing Microscopic not [facility] indicated. Specimen Performing Organization Address City/[facility]/ZIP Code Phon e Number [facility] [address] [place] [address] SERVICES [facility] [address] [place] [address] URINALYSIS, CHEMICAL (05/13/2008 11:15 EDT) Pathologist Sig nature Color, UA Straw [facility] Clarity, UA Clear [facility] Glucose, UA Norm NORM [facility] Bilirubin, UA Neg NEG [facility] Ketones, UA Neg NEG [facility] Specific [place], Urine 1.010 1.005 - 1.02 [facility] B Blood, UA Neg NEG [facility] pH, UA 8.0 5.0 - 9.0 [facility] Protein, UA Neg NEG [facility] Urobilinogen, UA Norm NORM mg/dL [facility] Nitrite, UA Neg NEG [facility] Leuk Esterase Neg NEG [facility] Specimen Performing Organization Address City/[facility]/ZIP Code Phon e Number [facility] [address] [place] [address] SERVICES [facility] [address] [place] [address] UA REFLEX (05/13/2008 9:00 EDT) Pathologist Sig nature UA Billing Microscopic not [facility] indicated. Specimen Performing Organization Address [facility] Phon e Number [facility] [address] [place] [address] SERVICES [facility] [address] [place] [address] (ABNORMAL) URINALYSIS, CHEMICAL (05/13/2008 9:00 EDT) Pathologist Sig nature Color, UA Straw [facility] Clarity, UA Clear [facility] Glucose, UA Norm NORM [facility] Bilirubin, UA Neg NEG [facility] Ketones, UA Neg NEG [facility] Specific [place], <1.005 (L) 1.005 - 1.02 [facility] Urine Blood, UA Neg NEG [facility] pH, UA 7.0 5.0 - 9.0 [facility] Protein, UA Neg NEG [facility] Urobilinogen, UA Norm NORM mg/dL [facility] Nitrite, UA Neg NEG [facility] Leuk Esterase Neg NEG [facility] Specimen Performing Organization Address [facility] Phon e Number [facility] [address] [place] [address] SERVICES [facility] [address] [place] [address] BACTERIAL CULTURE, URINE (05/13/2008 9:00 EDT) Pathologist Sig nature Specimen Description Urine [facility] Result No growth [facility] Report Status Final [facility] [id number] Specimen Performing Organization Address City/[facility]/ZIP Code Phon e Number [facility] [address] [place] [address] SERVICES [facility] [address] [place] [address] FUNGUS CULTURE, BLOOD (05/13/2008 8:50 EDT) Specimen Description Blood [facility] Right piv Total volume of blood collected: 6 ml Isolator tube received Result No fungi isolated [facility] Report Status Final [facility] [id number] Specimen Performing Organization Address City/[facility]/ZIP Code Phon e Number [facility] [address] [place] [address] SERVICES [facility] [address] [place] [address] BACTERIAL CULTURE, BLOOD (05/13/2008 8:50 EDT) Specimen Description Blood [facility] Right PIV Total volume of blood collected: 4 ml Pediatric bottle received Result No growth [facility] Report Status Final [facility] [id number] Specimen Performing Organization Address City/[facility] Code Phon e Number [facility] [address] [place] [address] SERVICES [facility] [address] [place] [address] MISCELLANEOUS TEST, OTHER (05/12/2008 16:45 EDT) Pathologist Sig nature Test Name ACUTE MYELOID LEUKEMIA (AML), FISH [facility] ??Corrected on 06/02 AT 1736: Previously reported as ALL (B CELL), FISH Result [facility] Three Additional FISH Probes ? REPORTED 05/19/2008 10:27 ? Specimen Bone Marrow ? Specimen ID [id number] ? Order Date 16 May 2008 10:48 ? Method ? FISH probes and locus (500 n uclei for translocation and ? inversion probe sets/200 nuc lei for chromosome 5, 7 and 8 ? enumeration and MLL break-ap art probe sets) ? inv(3) ?? 3q21(RPN1), 3q26.2 (EVI1) ? t(6;9) ?? 6p23(DEK), 9q34(CA N) ? t(8;21) ??8q22(ETO), 21q22(A ML1) ? -5/del(5q) ??5p15.2(N8T345), 5q31(EGR1) ? -7/del(7q) ??7cen(D7Z1), 7q3 1(U7O367) ? +8 ?? 8cen(D8Z2), 8q24.1(c-M YC) ? t(11q23;stu) ??11q23(3'MLL,5 'MLL) ? inv(16) ??16p13(MYH11), 16q2 2(CBFb) ? Results ? Analysis has been completed. Refer to the AML, FISH test ? for results and interpretati on. ? Interpretation ? Analysis has been completed. Refer to the AML, FISH test ? for results and interpretati on. ? Small Order Cutter ? Manny Anthony Ketterling MD ? Report Date 19 May 2008 10:2 6 ? Eleven Additional FISH Probe s ? REPORTED 05/19/2008 10:27 ? Specimen Bone Marrow ? Specimen ID [id number] ? Order Date 15 May 2008 07:32 ? Method ? FISH probes and locus (500 n uclei for translocation and ? inversion probe sets/200 nuc lei for chromosome 5, 7 and 8 ? enumeration and MLL break-ap art probe sets) ? inv(3) ?? 3q21(RPN1), 3q26.2 (EVI1) ? t(6;9) ?? 6p23(DEK), 9q34(CA N) ? t(8;21) ??8q22(ETO), 21q22(A ML1) ? -5/del(5q) ??5p15.2(X7V359), 5q31(EGR1) ? -7/del(7q) ??7cen(D7Z1), 7q3 1(C1C666) ? +8 ?? 8cen(D8Z2), 8q24.1(c-M YC) ? t(11q23;stu) ??11q23(3'MLL,5 'MLL) ? inv(16) ??16p13(MYH11), 16q2 2(CBFb) ? Results ? Analysis has been completed. Refer to the AML, FISH test ? for results and interpretati on. ? Interpretation ? Analysis has been completed. Refer to the AML, FISH test ? for results and interpretati on. ? Small Order Cutter ? Manny Fisher MD ? Report Date 19 May 2008 10:2 6 ? AML, FISH ? REPORTED 05/19/2008 10:27 ? Specimen Bone Marrow ? Specimen ID [id number] ? Order Date 15 May 2008 07:18 ? Reason for Referral ? [id number], # [id number] ? Method ? FISH probes and locus (500 n uclei for translocation and ? inversion probe sets/200 nuc lei for chromosome 5, 7 and 8 ? enumeration and MLL break-ap art probe sets) ? inv(3) ?? 3q21(RPN1), 3q26.2 (EVI1) ? t(6;9) ?? 6p23(DEK), 9q34(CA N) ? t(8;21) ??8q22(ETO), 21q22(A ML1) ? -5/del(5q) ??5p15.2(V8K285), 5q31(EGR1) ? -7/del(7q) ??7cen(D7Z1), 7q3 1(K2M432) ? +8 ?? 8cen(D8Z2), 8q24.1(c-M YC) ? t(11q23;stu) ??11q23(3'MLL,5 'MLL) ? inv(16) ??16p13(MYH11), 16q2 2(CBFb) ? Result ? Anomaly ?? Result(%) ??95% n ormal cutoff ? inv(3)(RPN1/EVI1) ??normal ? ? <0.6 ? t(6;9)(DEK/CAN) ??normal ?? <0.6 ? t(8;21)(ETO/AML1) ??abnormal (91.4%) <0.6 ? -5 ?normal ?? <4.0 ? 5q- ?normal ?? <6.0 ? -7 ?normal ?? <4.5 ? 7q- ?normal ?? <6.5 ? +8(D8Z2/c-MYC) ??normal ?? < 1.5 ? 11q23(MLL sep) ??normal ?? < 4.5 ? inv(16)(MYH11/CBFb) ??normal ?? <0.6 ? NOMENCLATURE: ? nuc martin(ETOx3),(AML1x3),(ETO con AML1x2)[457/500] ? Interpretation ? The result is abnormal and i ndicates ETO/AML1 fusion in ? 91.4% of nuclei. This result is consistent with the t(8;21) ? observed by chromosome studi es (reported separately). This ? translocation is associated with both de melchor and ? therapy-related AML, particu larly subtypes M2 and M4 and ? reportedly has a favorable p rognosis at diagnosis. Mosotho ? et al., Blood 96: 4075-83, 2 000. ? For monitoring response to t herapy in this patient, we ? suggest using FISH for ETO/A ML1 fusion. ? DISCLAIMER: This test was de veloped and its performance ? characteristics determined b y Laboratory Medicine and ? Pathology, [facility], [place], [place]. It has not been ? cleared or approved by the U .S. Food and Drug ? Administration. This FISH te st does not rule out other ? chromosome abnormalities. ? Small Order Cutter ? Manny Anthony Ketterling MD ? Released Date 19 May 2008 10 :26 ? * Performing Site: ? [facility] D[facility] of Lab Med & Pathology ? [address] [place] [address] ? Admissions Manager: Ricci daly III, M.D. ? Specimen Performing Organization Address City/State/ZIP Code Phon e Number [facility] [address] [place] [address] SERVICES [facility] [address] [place] [address] MISCELLANEOUS TEST, OTHER (05/12/2008 16:45 EDT) Pathologist [facility] nature Test Name CHROMOSOMES,HEMATOLOGIC, DARRIAN Velasquez AB BONE MARROW Result [facility] Chromosomes, Hematolog, Bone Marrow ? REPORTED 05/19/2008 10:25 ? Specimen Bone Marrow ? Specimen ID [id number] ? Order Date 15 May 2008 07:37 ? Total Cells Analyzed 20 ? Total Cells Karyotyped 2 ? Haploid Band Resolution 400 bands ? Method ? Culture w/out mitogens ? Reason For Referral ? [id number], # [id number] ? Results ? 46,XY,t(8;21)(q22;q22),del(9 )(q13q22)[20] ? Interpretation ? The result is abnormal. Each metaphase had a ? t(8;21)(q22;q22) and a 9q de letion. FISH analysis confirmed ? ETO/AML1 fusion (reported se sherlyn). This translocation ? has been associated with bot h de melchor and therapy-related ? AML, particularly subtypes M 2 and M4. Patients with a ? t(8;21) and additional chrom osome abnormalities at diagnosis ? reportedly have a similar fa vorable prognosis to patients ? with only a t(8;21). Mosotho et al., Blood 96:4075-83, ? 2000. ? For monitoring response to t herapy in this patient, we ? suggest using FISH for ETO/A ML1 fusion (TEST #[id number]). ? Small Order Cutter ? Manny Anthony Ketterling MD ? Report Date 19 May 2008 10:2 5 ? * Performing Site: ? [facility] D[facility] of Lab Med & Pathology ? [address] [place] [address] ? Admissions Manager: Ricci Hart. Matt daly, III, M.D. ? Specimen Performing Organization Address City/State/ZIP Code Phon e Number [facility] [address] [place] [address] SERVICES [facility] [address] [place] [address] FLOW CYTOMETRY (05/12/2008 16:45 EDT) Pathologist [facility] [place] Pathology Report: FLOW CYTOMETRY REPORT ? [facility] SPANGLER EN ? LAB Reports generated via electr Hyper Wearic interface contain original data; ? however they are lacking the format of the original report. ? Caution should be taken when reading/interpreting unformatted reports. ? Name: ? DIANA PERRIN ? Accession #: ? [id number] ? : ? 2000 (Age: 8) ??M ?Collect Date: ? 05/12/2008 16:45 ? Location: ? [facility] ? Receive Date: ? 05/12/2008 17:00 ? Provider: ?JULIET SA ULNIER-SHOLLER MD ? Copy to: ? Specimen/ Type: ?B one Marrow - ??Flow Cytometry ? Clinical History: ? [id number] boy with leukoc ytosis and circulating blasts ? Immunophenotype Analysis ? Date Tested: ??05/12/2008 ? Description: ? The specimen consists of [...] light chain, ? lambda light chain. ? There is a population of mye loblasts accounting for 78% of CD45+ events. ??The ?? lineage-specific markers exp ressed by the blasts are CD13 (dim), CD33 (dim), and CD11b (very dim). ??Progenit or markers CD34, CD38, and HLA-DR are also expressed. These cells show aberrant e xpression of CD19 (dim). ? A majority of the lymphoid c ells are T-lymphocytes (CD2+CD3+CD5+CD7+) with CD4+ and CD8+ subsets represented . ??The remaining lymphocytes are B-lymphocytes ? (CD19+CD20+CD22+) and NK-renetta ls (CD2+CD3-CD16+CD56+). ??Among the B-cells, both ?? kappa+ and lambda+ subsets a re represented. ? The results of flow cytometr y are consistent with involvement by acute myeloid ?? leukemia. ??Correlation of t hese findings with morphologic and clinical data, ? including results of a defin itive morphologic enumeration of blasts, is ? essential; please refer to b one marrow report [id number] for morphologic details. This case was discussed with Dr. Dudley Rene and Dr. Juliet Muñoz at approximately 19:15 on , May 12, 2008. ? Final Interpretation: ? Final Immunophenotypic Inter pretation: ? Bone marrow, flow cyt ometric analysis: ? - Acute myeloid leuke mona. ??See description. ? This test was developed and its performance characteristics determined by the ?? Department of Pathology and Laboratory Medicine, [facility], ? [place]. ??It has not been cleared or approved by the U.S. Food and Drug ?? Administration. ? Document reviewed and electr onically signed by: ? Rayray Ford MD ? Report Date: ??05/16/2008 10 :49 ? By the signature above, the attending physician certifies that he/she has ? personally conducted an eval uation of the described specimen and rendered or ? confirmed the above diagnosi s. ? End of Report ? Specimen Performing Organization Address City/State/[facility] Code Phon e Number [facility] [address] [place] [address] SERVICES [facility] [address] [place] [address] MISCELLANEOUS TEST (05/12/2008 16:45 EDT) Test Name SPECIAL STUDIES [facility] AML Result STUDY [facility] SAMPLE,RESULTS ARE NOT EXPECTED. Date Sample Shipped 05/14/2008 [facility] Specimen Performing Organization Address City/State/ZIP Code Phon e Number [facility] [address] [place] [address] SERVICES [facility] [address] [place] [address] BONE MARROW EXAM (05/12/2008 16:45 EDT) Preliminary Bone ACUTE MYELOID [facility] Marrow Exam LEUKEMIA. 92% BLASTS. [id number]. S Specimen Performing Organization Address City/State/ZIP Code Phon e Number [facility] [address] [place] [address] SERVICES [facility] [address] [place] [address] MISCELLANEOUS TEST (05/12/2008 16:45 EDT) Test Name FLT3 MUTATION [facility] ANALYSIS WITH ALLELIC LAB RATIO TESTING Result See supplementary report [facility] Specimen: Blood ? LAB ? Transit time: 3 days 18 hour s 39 minutes ? FLT-3 ITD Mutation Analysis ? There was no evidence of a F lt3 ITD or D835 mutation. ? [facility] ? [facility] [place], ? Date Sample 05/14/2008 [facility] Shipped LAB Specimen Performing Organization Address City/State/ZIP Code Phon e Number [facility] [address] [place] [address] SERVICES [facility] [address] [place] [address] (ABNORMAL) LDH (05/12/2008 15:29 EDT) Pathologist [facility] LDH 3675 (H) 370 - 840 U/L [facility] Specimen Performing Organization Address City/State/ZIP Code Phon e Number [facility] [address] [place] [address] SERVICES [facility] [address] [place] [address] (ABNORMAL) URIC ACID (05/12/2008 15:29 EDT) Pathologist Sig nature Uric Acid 5.3 (H) 2.2 - 4.7 mg/dl [facility] Specimen Performing Organization Address City/[facility]/ZIP Code Phon e Number [facility] [address] [place] [address] SERVICES [facility] [address] [place] [address] PHOSPHORUS (05/12/2008 15:29 EDT) Pathologist Sig nature Phosphorus 5.3 4.1 - 5.4 mg/dl [facility] Specimen Performing Organization Address City/[facility] Code Phon e Number [facility] [address] [place] [address] SERVICES [facility] [address] [place] [address] MAGNESIUM (05/12/2008 15:29 EDT) Pathologist Sig nature Magnesium 2.2 1.7 - 2.8 mg/dl [facility] Specimen Performing Organization Address City/[facility]/ZIP Code Phon e Number [facility] [address] [place] [address] SERVICES [facility] [address] [place] [address] (ABNORMAL) HEMAGRAM AND DIFFERENTIAL (05/12/2008 15:29 EDT) WBC 49.48 (H) 4.5 - 13.5 [facility] K/cmm LAB RBC 2.23 (L) 4.00 - 6.20 [facility] M/cmm LAB Hemoglobin 6.7 (LL) 11.5 - 15.5 [facility] gm/dl LAB HCT 19.5 (LL) 35.0 - 45.0 [facility] % LAB MCV 87 77 - 95 fl [facility] MCH 30.0 pg [facility] MCHC 34.2 gm/dl [facility] PLT 49 (L) 156 - 312 [facility] K/cmm LAB RDW-CV 17.6 % [facility] Neutrophils 0.0 % [facility] Lymphocytes 18.0 % [facility] Monocytes 1.0 % [facility] Promyelocytes 1.0 % [facility] Blasts 80.0 (HH) % [facility] ABS Neutrophils 0.00 (LL) K/cmm [facility] ABS Lymphs 8.91 K/cmm [facility] Monocytes 0.49 K/cmm [facility] ABS Promyelocytes 0.49 K/cmm [facility] ABS Blasts 39.59 K/cmm [facility] RBC Morphology 1+ Anisocytosis [facility] 1+ Poikilocytosis LAB 1+ Polychromasia WBC Morphology 1+ Smudge cells [facility] Comment Reviewed by Dr. Logan [facility] LUIS FERNANDO RODS ARE PRESENT LAB IN A SMALL NUMBER OF BLASTS. Type of Diff: Manual [facility] Specimen Performing Organization Address City/State/ZIP Code Phon e Number [facility] [address] [place] [address] SERVICES [facility] [address] [place] [address] (ABNORMAL) COMPREHENSIVE METABOLIC PANEL (05/12/2008 15:29 EDT) [facility] nature Potassium 4.0 3.6 - 5.2 mEq/L [facility] Sodium 139 136 - 145 mEq/L [facility] Chloride 104 96 - 110 mEq/L [facility] CO2 27 24 - 32 mEq/L [facility] Alkaline Phosphatase 168 150 - 350 U/L [facility] Bilirubin, Total <0.5 0.0 - 1.4 mg/dl [facility] AST 32 23 - 58 U/L [facility] ALT 18 10 - 25 U/L [facility] Albumin 4.2 3.5 - 5.2 g/dl [facility] Total Protein 7.8 5.9 - 7.8 g/dl [facility] Creatinine 0.40 0.1 - 0.7 mg/dl [facility] GFR, Calculated Age <18 ml/min/1.73m2 [facility] BUN 13 7 - 18 mg/dl [facility] Calcium 8.6 (L) 8.8 - 11.1 mg/dl [facility] Calculated Calcium 8.8 8.8 - 11.1 mg/dl [facility] Glucose, Serum 94 70 - 100 mg/dl [facility] Fasting? No [facility] Specimen Performing Organization Address [facility] Phon e Number [facility] [address] [place] [address] SERVICES [facility] [address] [place] [address] URIC ACID (05/12/2008 9:19 EDT) Pathologist Sig nature Uric Acid 3.4 2.2 - 4.7 mg/dl [facility] Specimen Performing Organization Address [facility] Phon e Number [facility] [address] [place] [address] SERVICES [facility] [address] [place] [address] (ABNORMAL) PHOSPHORUS (05/12/2008 9:19 EDT) Pathologist Sig nature Phosphorus 4.0 (L) 4.1 - 5.4 mg/dl [facility] Specimen Performing Organization Address [facility] Phon e Number [facility] [address] [place] [address] SERVICES [facility] [address] [place] [address] ELECTROLYTES (05/12/2008 9:19 EDT) Pathologist Sig nature Sodium 141 136 - 145 mEq/L [facility] Potassium 3.9 3.6 - 5.2 mEq/L [facility] Chloride 106 96 - 110 mEq/L [facility] CO2 26 24 - 32 mEq/L [facility] Specimen Performing Organization Address [facility] Phon e Number [facility] [address] [place] [address] SERVICES [facility] [address] [place] [address] CYTOGENETICS (05/12/2008 0:00 EDT) Pathology Report: CYTOGENETICS REPORT ? [facility] ? LAB Reports generated via electr onic interface contain original data; ? however they are lacking the format of the original report. ? Caution should be taken when reading/interpreting unformatted reports. ? Name: ? DIANA PERRIN ? Accession #: ? [id number] ? : ? 2000 (Age: 8) ??M ?Collect Date: ? 05/12/2008 ? Location: ? B005 ? Receive Date: ? 05/13/2008 ? Provider: ? JULIET PRINCE MD ? Copy to: ?Rayrya Ford MD ? Nella WhitePaul Johsnon MD ? CLINICAL HISTORY: ? [age] year old male wit h new onset pancytopenia with elevated WBC (45,000). ?? Evaluate for leukemia ? [id number] ??BM: ??Acute myelo id leukemia ? SPECIMEN: ? Bone Marrow ? TEST PERFORMED: ? G-banded Karyotype or dered but not completed ? REPORT: ? None ? KARYOTYPE: ? None ? INTERPRETATION: ? Patient entered on COG study . ??Sample sent to [facility] ??see ?? separate report. ? A back up sample was studied and a preliminary report of t(8;21) and deletion 9q in 9 of 10 cells was called to Dr. Abel on 05/16/08. ? The test has been canceled a nd credited. ??Complete results will be available ? from [facility]. ? Document reviewed and electr onically signed by: ? Gale. Johnson, MD ? Report Date: ??07/07/ 2008 16:48 ? End of Report ? Specimen Performing Organization Address City/State/ZIP Code Phon e Number [facility] [address] [place] [address] SERVICES [facility] [address] [place] [address] BONE MARROW (05/12/2008 0:00 EDT) Pathology Report: BONE MARROW REPORT ? [facility] ? LAB Reports generated via electr onic interface contain original data; ? however they are lacking the format of the original report. ? Caution should be taken when reading/interpreting unformatted reports. ? Name: ? DIANA PERRIN P ? Accession #: ? [id number] ? : ? 2000 (Age: 8) ??M ?Collect Date: ? 05/12/2008 ? Location: ? B005 ? R eceive Date: ? 05/16/2008 ? Provider: JULIET VOGT MD ? Copy to: ? Addendum ? Date Ordered: ? 0 05/18/2008 ? Status: Signed Out ? Date Complete: ? 05/18/2008 ? By: Dinorah Ramírez ? Date Reported: ? 05/18/2008 ? Addendum Diagnosis ? Bone marrow: ? - Acute myeloid leukemia wit h t(8;21). ??See comment. ? Addendum Comment ? Additional karyotypic information has become available and this data alters the original diagnosis of ac [place] myeloid leukemia. ??Karyotypic analysis of the ?? bone marrow sample reveals t (8;21) and, in addition, deletion of 9q. ??In light ?? 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 ??(Dr. Katherine Iglesias)/[place] ? Document reviewed and electr onically signed by: ? Marty Iglesias MD ? Report date: 05/18/20 08 ? By the signature above, the attending physician certifies that he/she has ? personally conducted a gross and/or microscopic examination of the described ? specimens and rendered or co nfirmed the above diagnosis. ? Final Report ? Diagnosis: ? Peripheral blood: ? - Severe normocytic anemia. ? - Marked absolute neutropeni a (0/cmm). ? - Circulating blasts (39,590 /cmm). ? - Thrombocytopenia (49,000/c mm). ? Bone marrow: ? - Acute myeloid leukemia. ?? Cytogenetics pending. ? Bone Marrow: ? Biopsy (decalcified): ??Good biopsy, received in several pieces, consisting of cartilage and cortical parth ne, mud jack nozzle worker trabeculae of lamellar bone and ? hypercellular bone marrow. ? ?Fat:cell ratio approaches 100% cellularity. ??M:E ? ratio cannot be assessed; ma turing hematopoiesis is scant. ??The predominant cell population consisting of int ermediate sized mononuclear cells with oval to ? lobated nuclear contours, gr anular chromatin and small but distinct nucleoli ? (blasts). ??Rare megakaryocy susan are seen. ??Minimal plasmacytosis. ??Hemosiderin 0 (0-4+) (Prussian Blue stain for Iron). ? Filtered particle section: ? ?Consists of multiple small hypercellular bone marrow particles. ??Fat:cell ratio approaches 100% cellularity. ??M:E ratio cannot be ? assessed; the predominant ce ll population consists of blasts. ??Rare ? megakaryocytes are seen. ??M inimal plasmacytosis. ??Hemosiderin 0 (0-4+) (Prussian Blue stain for Iron). ? Smears: ??Particulate and ce llular. ? Imprints: ??Aparticulate and cellular. ? Granulopoiesis: ?Scant. ? Erythropoiesis: ?Scant. ? Megakaryocytes: ? Rare. ? Other Cells: ?F ew lymphocytes, few plasma cells, few ? monocytes/histiocytes; the p redominant cell population consists of blasts, ? including a few with Luis Fernando ro ds. ? Hemosiderin (smears): ?? His tiocytes 2+ (0-4+) (Prussian Blue stain for Iron) ? Rare erythroid precursors se en. ? 500 cell differential count: ? Late g ranulocytes ?<1% ?Early granulo cytes ?2% ?Erythroid ser ies ? 1% ?Lymphocytes ? 3% ?Monocytes/his tiocytes ?1% ?Plasma cells ? <1% ?BLASTS ? 92% ?Total ?? 100% ? Special Studies: ? Cytogenetics (CG08-59 6): Pending. ? Flow cytometry ([id number]): CD 13+CD33+CD34+dim CD19+ myeloblasts detected. ??See ?? separate Immunopathology rep ort. ? Peripheral Blood: ?05/12/08): Hgb 6.7 gm/dl, ??Hct 19.5%, ??RBC 2.23 M/cmm, ??MCV 87 fl, ??MCH ?? 30.0 pg, ??MCHC 34.2 gm/dl, RDW 17.6%, WBC 49,480/cmm, ??with 0% neutrophils, ??18% lymphocytes, 1% monocytes, 1 % promyelocytes, ??and 80% blasts. ??Platelet count ?? 49,000/cmm. ??Review of the peripheral smear confirms the above findings. ? Clinical Data: ? The patient is a [age]- year-old boy with new onset thrombocytopenia, anemia, and an elevated white blood cell count of 45,000. ??The bone marrow is performed to evaluate for leukemia. ? Tissue submitted: ? Bone marrow (right po sterior iliac crest): Biopsy and imprints: aspirate, ?? filtered particle section an d smears. ? Document reviewed and electr onically signed by: ? Marty Iglesias MD ? Report ??Date: 05/16/ 2008 16:32 ? By the signature above, the attending physician certifies that he/she has ? personally conducted a gross and/or microscopic examination of the described ? specimens and rendered or co nfirmed the above diagnosis. ? End of Report ? Specimen Performing Organization Address City/State/ZIP Code Phon e Number [facility] [address] [place] [address] SERVICES [facility] [address] [place] [address] documented in this encounter Visit Diagnoses Not on filedocumented in this encounter Orders Lab Orders Without Results Count Last Ordered Date Fir st Ordered Date BONE MARROW 1 06/10/2008 FLOW CYTOMETRY 1 06/10/2008 documented in this encounter
--- OUTSIDE RECORDS SUMMARY | 2022-05-10 08:34 | XMS_ITS | Encounter Summary ---
:2000 [place] [address] Care Team Providers Name Role Phone Bernard Newman MD Primary Care Provider Encounter Details Date Type Department Care Team Description 10/04/2020 Orders Only Pediatric Endocrinology Bala Martinez , [place] [id number] PEDIATRIC ENDOCRINOLOGY [place], [place] [address] (Wo rk) Social History Tobacco Use Types Packs/Day Years Used Date Never Smoker Smokeless Tobacco: Never Used Comments: no one smokes Sex Assigned at Date Recorded Male 10/09/2021 8:40 AM EST documented as of this encounter Plan of Treatment Not on filedocumented as of this encounter Visit Diagnoses Diagnosis Hypogonadism male Other testicular hypofunction documented in this encounter Care Teams Real Estate Salesperson Relationship Specialty Start Date End Date Bernard Newman MD PCP - General Pediatrics 07/27/18 [address] [place], [place] [id number] documented as of this encounter
--- OUTSIDE RECORDS SUMMARY | 2022-05-10 08:34 | XMS_ITS | Encounter Summary ---
:2000 Author Organization [facility] [place] [address] Care Team Providers Name Role Phone Bernard Newman MD Primary Care Provider Reason for Visit Consultation (Routine) - Closed Specialty Diagnoses / Procedures Referred By Contact Refer red To Contact Endocrinology Diagnoses Hypogonadism male Bala Martinez MD [facility] [address] [place] [address] [phone] [place] [address] Referral ID Status Reason Start Date Expiration Date Visits V isits Requested Authorized [id number] Closed Consult, 04/19/2021 04/19/2022 1 1 Test & Treat Encounter Details Date Type Department Care Team Description 10/09/2021 Office Visit Endocrinology at [facility] Oliva Monroy [place] [address] END[place]CRINOLOGY [place] [address] Social History Tobacco Use Types Packs/Day Years [...] Mass Index 26.54 10/09/2021 10:26 AM EST documented in this encounter Progress Notes Oliva Ann MD - 10/09/2021 10:30 AM EST Images from the original note were not included. Mr. Diana Ross is a 21 y.o. male seen in consultation at the request of Dr. Bernard Newman MD regarding hypogonadism. He is here today with mother Joan who was present for entire visit and provided additional history. HPI per Dr. Martinez's note: Geronimo first presented to in 07/2018 referred for consultation regarding possible hypogonadism at the request of Dr. Bernard Newman. 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 He went through a normal puberty and recalls normal sexual function in seventh grade. In eighth grade he noticed that it was more difficult to sustain erections. In ninth grade he noted decreased spontaneous erections and difficulty maintaining erections and raised the concern with Dr. Newman. He had testosterone measured on 2 occasions with values of 241 and 225 which fall within the normal range for Red IV but are below the cutoff for Red V. His prolactin was minimally elevated to 18in 02/2018, but was 32 in 06/2018. Because of the concern of possible prolactinoma, a brain MRI was obtained and revealed no abnormalities of the pituitary. He worked out regularly, but did not do a lot of biking. He was seen by an adult urologist who recommended a trial of sildenafil. Diana did notice an increase in erections and the ability to sustain erections with the medication, but he has not been takingit on a consistent basis. At that time genitourinary exam showed: Red V pubic hair. The phallus is normal adult. The testicles measured 20 mL in volume bilaterally. He had normal texture. The [employer] olfactory testing was administered and Diana could identify only 31 of the 40 odors, which displaced him in the moderate hyposmia range, raising concerns for Kallman syndrome. He was then started on testosterone treatment in 07/27/2018, initially IM, and had a very good response to testosterone treatment including improvements in development of directions and the ability to ejaculate. In March of this year he switched to gel after he noticed a little bit of fluctuation in theway he felt between testosterone doses with some fading of the effect. Lab results PRIOR to initiation of testosterone therapy: 06/09/2018 IGF-1: 327 Free test: 9.40 Total test: 241 Prolactin: 34 FSH: 9 LH: 4 Interim events: Today he present to our clinic after Dr. Martinez retired and patient is ready to be transitioned to adult endocrinology. He continues on the gel therapy, one pump to each shoulder daily, and states it is working well for him. He is satisfied with the dose and denies any erectile dysfunction, low libido or ejaculation problems. There is no reported breast growth or tenderness. No nipple discharge. He also denies change in size of testicles or weight changes. He shaves once monthly. He reports normal energy levels and strength. There is no reported hx of mumps infection and no prior hx of chemotherapy or radiation therapy to the abdomen/pelvis. There is no history of trauma to the testicles or testicular torsion. He denies history of cryptorchidism. There is no known hx of sellar mass. He denies headaches or loss of peripheral vision. Family hx: denies any significant history Past Medical History: Past Medical History: Diagnosis Date ??? ALL (acute lymphoblastic leukemia) In remission since age 8 ??? Hypogonadism male 08/02/2018 Normal puberty followed by a period of erectile dysfunction. Borderline testosterone values documented in 2018. No elevation of gonadotropins. Moderate hyposmia detected in 2018. ??? Hyposmia 08/02/2018 Olfactory testing revealed moderate hyposmia in 2018 ??? Vision abnormalities Past Surgical History: Past Surgical History: Procedure Laterality Date ??? TUNNELED VENOUS PORT PLACEMENT Social Hx: Lives at home with parents Occupatiin: works at [employer] Smoking: used to vape for 3 years, but quit in Illicit drug use: marijuana daily, started after initiation of testosterone treatment Etoh: socially Allergies: Allergies Allergen Reactions ??? Amphotericin B Liposome Anaphylaxis hypotension ??? Voriconazole Rash and Hives Current Outpatient Prescriptions: Current Outpatient Medications on File Prior to Visit Medication Sig Dispense Refill ??? buPROPion XL (Wellbutrin XL) 150 mg Tablet Extended Release 24 hr Take by mouth. ??? ibuprofen (Advil) 200 mg Tablet Take 200 mg by mouth Every 6 hours. ??? testosterone (ANDROGEL) 20.25 mg/1.25 gram (1.62 %) Gel in Metered-dose Pump Apply 40.5 mg topically daily. ( 2 pumps daily) No further refills. Pt transitioning care to another provider. 75 g 0 ??? Needle, Disp, 25 G 25 gauge x 5/8 Needle Use for testosterone injections 12 each 3 No current facility-administered medications on file prior to visit. family history includes Anxiety Disorder in his paternal grandmother; Cancer in his maternal grandmother; Coronary Artery Disease in his paternal grandfather; Dementia in his paternal grandmother; Diabetes in his mother; Hypertension in his brother; Myocardial Infarction in his paternal grandfather; Substance Use Disorder in his maternal grandfather; Thyroid Disease in his father and mother. There is no reported family hx of hypogonadism, pituitary adenoma, or prostate cancer. Review of Systems: All other systems negative. Physical Exam: Vitals: 10/09/21 1026 BP: 131/63 Pulse: 77 Temp: 37.3 ??C (99.1 ??F) TempSrc: Temporal SpO2: 100% Weight: 90.7 kg (200 lb) Height: 184.9 cm (6' 0.8) Gen: He is normally virilized Face: not round or red, no prognathism or frontal bossing. Eyes: no lid lag; visual rasmussen intact, no proptosis or lid lag Nose: not enlarged Mouth: tongue not enlarged, normal spacing of teeth, no buccal speckling or gum hyperpigmentation Neck: no supraclavicular fat pads; no thyroid enlargement Lymphatic: no palpable cervical lymph nodes Respiratory: symmetrical chest expansion, normal respiratory effort, clear to auscultation bilaterally Cardiovascular: normal S1, S2, no murmurs, rubs, or gallops Chest: CTA b/l Musculoskeletal: normal gait; normal male musculature : Testes: Right 15ml, Left 15ml Skin: normal temperature/texture, no ecchymosis, normal pigmentation, no wide or purple striae Neurological: no tremors; normal reflexes Psychological: alert/oriented to person, place, time; normal affect; memory intact; normal judgement/insight Laboratory Studies: Results for DIANA ROSS ( ) as of 10/11/2021 10:25 Ref. Range 04/10/2021 06:55 Testo Total Latest Ref Range: 300 - 950 ng/dL 468 (External Lab) Radiology Studies: I have reviewed the following radiology studies: MRI Brain 06/16/2018 Assessment / Plan: Mr. Diana Ross is a 21 y.o. male seen in consultation at the request of Dr. Bernard Newman MD regarding hypogonadism. It is interesting that when I look back at the lab results from prior to initiation of testosterone replacement, the free testosterone, which is the biologically active form, was within normal limits. However, the total testosterone levels, which represent the testosterone that is bound to sex hormone-binding globulin, were low. Unfortunately, the SHBG was not measured, but I have a suspicion that itwould be low in his case. His FSH and LH levels were normal, which would be an adequate response to the normal free testosterone level. His prolactin levels were elevated, and despite that elevation, his free testosterone levels were normal, which suggests he probably had a robust reservoir of active testosterone in his body. Geronimo mentioned today that at that time he was going through a significant amount of stress in his life, which could explain the elevated prolactin levels in the setting of having an unremarkable brain MRI. It is known that marijuana can increase prolactin levels, but Geronimo confirmed today that he was not using marijuana at that time. Per chart review it seems like he was going though puberty without problems. Endocrinology note from07/2018 noted Red V pubic hair. The phallus is normal adult. The testicles measured 20 mL in volume bilaterally. However, he was presenting with erectile dysfunction, low libido, low energy levels, which are very worrisome symptoms in a young teenager. I wonder if his symptoms were actually caused by the stress and anxiety he claims to be experiencing at that time, and not by the low total testosterone levels. Nonetheless, his symptoms improved with the testosterone replacement therapy. He is on a low dose ofthe gel, one pump to each shoulder once daily, and I wonder if I should start tapering him down. Hisphysical exam today was significant for decreased testicles size, which is not an abnormal finding in the setting of exogenous testosterone, but because he is on a low dose, I hope he will recuperate the testicular function as he is weaned off therapy. In regards to concerns for Kallman syndrome, I have a low suspicion that this would be his case. In patients with Kallman, we expect to see a very low FSH and LH levels. Besides, the diagnosis of hyposmia is very subjective. Today we are going to repeat total and free testosterone levels, as well TSH, free T4, and TPO antibodies. Undiagnosed hypothyroidism can present with a some of the symptoms he experienced. We are alsogoing to repeat prolactin, CBC and vit D levels. Once lab results, we will be able to make a decision regarding whether we should start weaning him off the testosterone therapy. This was explained in details to Geronimo and his mother Joan. I have answered my patient's questions to the best of my ability and have encouraged Geronimo to call or send a message with any additional questions. Case d/w Dr. Sera Ann MD 10/09/2021 10:33 AM Gasper De Leon MD - 10/09/2021 10:30 AM EST I have seen the patient and reviewed Dr. Ann's above history and I agree with the details as written. The assessment and plan were formulated in discussion with me and I agree with them as documented. Gasper Zamora MD, PhD, FACE, FACP Oliva Blanco MD - 10/09/2021 10:30 AM EST Correction to my note: My note states he was diagnosed with ALL and that the treatment was completed by age 8. However, this information was clarified by his mother Joan today. Geronimo was diagnosed with AML and diagnosis happened at age 8. documented in this encounter Plan of Treatment Not on filedocumented as of this encounter Results Vitamin D, 25-Hydroxy (10/09/2021 12:24 PM EST) Patholo gist Method Time Signature 25-OH Vit D 41 21 - 100 RAFA FORTE Total ng/mL [facility] 25-OH Vit D Sufficient [facility] Specimen Anatomical Collection Method Collection Time Receive d Time (Source) Location / / Volume Laterality Blood 10/09/2021 12:24 10/09/2021 PM EST 12:30 PM EST Resulting Agency Comment Spec In Lab Gasper Zamora MD CHEMISTRY ORDERABLES Performing Organization Address City/[facility]/ZIP Code Phon e Number [address] (ABNORMAL) T4, free (10/09/2021 12:24 PM EST) athologist Signature Free T4 0.89 (L) 0.93 - 1.70 RAFA FORTE ng/dL [facility] Comment: Reference Interval (ng/dL): Females: ??First Trimester: 0.97-1.68 ??Second Trimester: 0.77-1.51 ??Third Trimester: 0.77-1.49 Specimen Anatomical Collection Method Collection Time Receive d Time (Source) Location / / Volume Laterality Blood 10/09/2021 12:24 10/09/2021 PM EST 12:30 PM EST Resulting Agency Comment Spec In Lab Gasper Zamora MD CHEMISTRY ORDERABLES Performing Organization Address City/[facility] Phon e Number [address] TSH (10/09/2021 12:24 PM EST) athologist Signature TSH 1.35 0.27 - 4.20 RAFA FORTE mcIU/mL [facility] Comment: Reference Interval (mcIU/mL): Females: ??First Trimester: 0.23-3.88 ??Second Trimester: 0.22-3.90 ??Third Trimester: 0.44-4.66 Specimen Anatomical Collection Method Collection Time Receive d Time (Source) Location / / Volume Laterality Blood 10/09/2021 12:24 10/09/2021 PM EST 12:30 PM EST Resulting Agency Comment Spec In Lab Gasper Zamora MD CHEMISTRY ORDERABLES Performing Organization Address City/State/[place] [address] Testosterone, total and free (10/09/2021 12:24 PM EST) P athologist Signature Testo, Total 281 240 - 950 [facility] (MS) ng/dL [facility] Comment: ADDITIONAL INFORMATIO N Testing performed by Liquid Chromatograp hy-Tandem Mass Spectrometry (LC-MS/MS). This test was developed and its performa nce characteristics determined by [facility] [place] in a manner co nsistent with CLIA requirements. This test has not been reina ared or approved by the U.S. Food and Drug Administration. Test Performed by: [facility] [employer] [address] [place] [address] [address] [employer]: Lb Trevino M.D. Ph. D.; CLIA# [id number] Testo Free 8.71 5.36 - 21.2 ng/dL [facility] Comment: ADDITIONAL INFORMATIO N Testing performed by [employer] This test was developed and its performa nce characteristics determined by [facility] [place] in a manner co nsistent with CLIA requirements. This test has not been reina ared or approved by the U.S. Food and Drug Administration. Test Performed by: [facility] [address] [facility] [address] [place] [address] [address] [employer]: Lb Trevino M.D. Ph. D.; CLIA# [id number] Specimen Anatomical Collection Method Collection Time Receive d Time (Source) Location / / Volume Laterality Blood 10/09/2021 12:24 10/09/2021 3:54 PM EST PM EST Resulting Agency Comment Spec In Lab Gasper Zamora MD CHEMISTRY ORDERABLES Performing Organization Address City/State/ZIP Code Phon e Number [address] Prolactin (10/09/2021 12:24 PM EST) athologist Signature Prolactin 8.1 4.0 - 15.2 [facility] REANNA ng/mL [facility] Specimen Anatomical Collection Method Collection Time Receive d Time (Source) Location / / Volume Laterality Blood 10/09/2021 12:24 10/09/2021 PM EST 12:30 PM EST Resulting Agency Comment Spec In Lab Gasper Zamora MD CHEMISTRY ORDERABLES Performing Organization Address City/State/[place] [address] documented in this encounter Visit Diagnoses Diagnosis Hypogonadism male Other testicular hypofunction documented in this encounter Care Teams Housekeeping Coordinator Relationship Specialty Start Date End Date Bernard Newman MD PCP - General Pediatrics 07/27/18 [place] [address] documented as of this encounter
--- OUTSIDE RECORDS SUMMARY | 2022-05-10 08:34 | XMS_ITS | Encounter Summary ---
:2000 Author Organization [facility] [place] [address] Care Team Providers Name Role Phone Bernard Newman MD Primary Care Provider Encounter Details Date Type Department Care Team Description 02/18/2022 Telephone Endocrinology at [facility] [place] [address] Social History Tobacco Use Types Packs/Day Years Used Date Never Smoker Smokeless Tobacco: Never Used Comments: no one smokes Sex Assigned at Date Recorded Male 10/09/2021 8:40 AM EST documented as of this encounter Miscellaneous Notes Telephone Encounter - Jon Reddy RN - 02/18/2022 3:07 PM EDT Returned call and notified her that we have not received these results. Joan will email to me as these issues have been going on for about a month at this point. Telephone Encounter - Jon Reddy RN - 02/18/2022 12:10 PM EDT Received voicemail from Joan, nurse at [facility] infusion wanting to know if we received lab results. They sent these to both of our fax numbers. Results have not been received. She was requesting return call to confirm these were received. documented in this encounter Plan of Treatment Not on filedocumented as of this encounter Visit Diagnoses Not on filedocumented in this encounter Care Teams Pie Maker Machine Relationship Specialty Start Date End Date Bernard Newman MD PCP - General Pediatrics 07/27/18 [place] [address] documented as of this encounter
--- OUTSIDE RECORDS SUMMARY | 2022-05-10 08:34 | XMS_ITS | Encounter Summary ---
:2000 [place] [address] Care Team Providers Name Role Phone Bernard Newman MD Primary Care Provider Reason for Visit Reason Onset Date Comments Medication Refill 10/26/2018 Encounter Details Date Type Department Care Team Description 10/26/2018 [facility] [place] [address] Social History Tobacco Use Types Packs/Day Years Used Date Never Smoker Smokeless Tobacco: Never Used Comments: no one smokes Sex Assigned at Date Recorded Male 10/09/2021 8:40 AM EST documented as of this encounter Plan of Treatment Not on filedocumented as of this encounter Visit Diagnoses Diagnosis Hypogonadism male Other testicular hypofunction documented in this encounter Care Teams Accuracy Expert Relationship Specialty Start Date End Date Bernard Newman MD PCP - General Pediatrics 07/27/18 [place], [place] [id number] documented as of this encounter
--- OUTSIDE RECORDS SUMMARY | 2022-05-10 08:34 | XMS_ITS | Encounter Summary ---
:2000 Author Organization [facility] [place] [address] Care Team Providers Name Role Phone Bernard Newman MD Primary Care Provider Encounter Details Date Type Department Care Team Description 01/17/2022 Orders Only Endocrinology at [facility] Oliva Monroy, Hypogonadism in male [facility] [place] [phone] [place] [address] [facility] [place], [place] [address] Social History Tobacco Use Types Packs/Day Years Used Date Never Smoker Smokeless Tobacco: Never Used Comments: no one smokes Sex Assigned at Date Recorded Male 10/09/2021 8:40 AM EST documented as of this encounter Plan of Treatment Scheduled Orders Name Type Priority Associated Diagnoses Order S chedule Testosterone, total and Lab Routine Hypogonadism in m marlo Expected: 01/17/2022 free (Approximate), Expires: 07/19/2022 documented as of this encounter Visit Diagnoses Diagnosis Hypogonadism in male documented in this encounter Care Teams Business Objects Architect Relationship Specialty Start Date End Date Bernard Newman MD PCP - General Pediatrics 07/27/18 [place] [address] documented as of this encounter
--- OUTSIDE RECORDS SUMMARY | 2022-05-10 08:34 | XMS_ITS | Encounter Summary ---
:2000 [place] [address] Care Team Providers Name Role Phone Bernard Newman MD Primary Care Provider Reason for Visit Reason Comments Hypogonadism Encounter Details Date Type Department Care Team Description 05/31/2019 Office Visit Pediatric Endocrinology Bala Martinez , [place] [address] PEDIATRIC ENDOCRINOLOGY [place], [place] [address] Social History Tobacco Use Types Packs/Day Years Used Date Never Smoker Smokeless Tobacco: Never Used Comments: no one smokes Sex Assigned at Date Recorded Male 10/09/2021 8:40 AM EST documented as of this encounter Last Filed Vital Signs Vital Sign Reading Time Taken Comments Blood Pressure 119/65 05/31/2019 11:07 AM EDT Pulse 59 05/31/2019 11:07 AM EDT Temperature - - Respiratory Rate - - Oxygen Saturation - - Inhaled Oxygen Concentration - - Weight 88.5 kg (195 lb 1.7 oz) 05/31/2019 11:07 AM EDT Height 184.6 cm (6' 0.68) 05/31/2019 11:07 AM EDT Body Mass Index 25.97 05/31/2019 11:07 AM EDT Body Mass Index Percentile 89.35 % 05/31/2019 11:07 AM E DT Growth Chart: CDC (Boys, 2-20 Years) documented in this encounter Progress Notes Bala Martinez MD - 05/31/2019 11:00 AM EDT Subjective: Patient ID: Jaswinder Ross is a 19 y.o. male. JAZMINE San is here with [...] subcutaneous testosterone is be working much better. He's had no difficulty with the injections which are administered by his mother. He has normal spontaneous erections, normal libido and is able to ejaculate. He has also had sexual intercourse without difficulty. In April, his mother had contacted our office with some concern that the testosterone was making Jaswinder more anxious, but we agreed to wait until school was out to see if his symptoms improved. He reports being less anxious now. l Other than the ALL, his general health has been excellent. He has had recurrent pain in his left knee and they plan to have that evaluated by an orthopedist. Social History: He lives at home with both parents. He has an older sister and older brother who no longer live in the household. He is in 11th grade at [employer] and does very well academically, passing all subjects. He is participating in football and lacrosse. His father is a master control operator and his mother is a nurse at [employer]. 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 Past Medical History, Surgical History, and Family History were reviewed and updated in the electronic record. Significant for childhood ALL now in remission. Review of Systems Constitutional: Negative. HENT: Negative. Eyes: Negative. Respiratory: Negative. Cardiovascular: Negative. Gastrointestinal: Negative. Endocrine: Increased thirst at times, but not consistent. Genitourinary: Negative. Musculoskeletal: Positive for arthralgias. Chronic left knee pain Skin: Negative. Neurological: Negative. Psychiatric/Behavioral: Negative. Objective: [...] phallus is normal adult. The testicles measured 15 mL in volume bilaterally, which is increased from his last exam.. Musculoskeletal: He exhibits no edema. Lymphadenopathy: He has no cervical adenopathy. Neurological: He is alert. Skin: Skin is warm. No rash noted. Psychiatric: He has a normal mood and affect. His behavior is normal. BP 119/65 Pulse 59 Ht 184.6 cm (6' 0.68) Wt 88.5 kg (195 lb 1.7 oz) BMI 25.97 kg/m?? Assessment and Plan: Hypogonadism male He is doing very well on the current regimen of testosterone injections and his mother is no longer concerned that the testosterone is increasing his level of anxiety. I encouraged him to consider learning to give his own injections as he will soon be much more independent, but for now he is content to have assistance with the testosterone injections. I renewed the prescription for 50 mg subcutaneously every week. I reminded Jaswinder should he experience a loss of libido, decreased erections or inability to ejaculate, he should contact me as it may indicate inadequate testosterone replacement. Otherwise I will plan to see him again in clinic in 6 months. documented in this encounter Miscellaneous Notes Assessment & Plan Note - Bala Martinez MD - 06/06/2019 11:22 AM EDT Associated Problem(s): +/- Hypogonadism male (low total testosterone but normal free testosterone) He is doing very well on the current regimen of testosterone injections and his mother is no longer concerned that the testosterone is increasing his level of anxiety. I encouraged him to consider learning to give his own injections as he will soon be much more independent, but for now he is content to have assistance with the testosterone injections. I renewed the prescription for 50 mg subcutaneously every week. I reminded Jaswinder should he experience a loss of libido, decreased erections or inability to ejaculate, he should contact me as it may indicate inadequate testosterone replacement. Otherwise I will plan to see him again in clinic in 6 months. documented in this encounter Plan of Treatment Not on filedocumented as of this encounter Visit Diagnoses Diagnosis Hypogonadism male Other testicular hypofunction documented in this encounter Care Teams Ornament Maker Hand Relationship Specialty Start Date End Date Bernard Newman MD PCP - General Pediatrics 07/27/[address] [place] [address] [place] [address] documented as of this encounter
--- OUTSIDE RECORDS SUMMARY | 2022-05-10 08:34 | XMS_ITS | Encounter Summary ---
:2000 Author Organization [facility] [place] [address] Care Team Providers Name Role Phone Bernard Newman MD Primary Care Provider Encounter Details Date Type Department Care Team Description 04/20/2021 Telephone Pediatric Endocrinol ogy at [facility] [place] [address] Social History Tobacco Use Types Packs/Day Years Used Date Never Smoker Smokeless Tobacco: Never Used Comments: no one smokes Sex Assigned at Date Recorded Male 10/09/2021 8:40 AM EST documented as of this encounter Miscellaneous Notes Telephone Encounter - Key Jimenez RN - 04/20/2021 10:15 AM EDT Left message for mom at the number left that I did not receive the fax she sent and asked her to resend, left updated fax number. Also left clinic number if she had any questons. Telephone Encounter - Key Jimenez RN - 04/20/2021 10:15 AM EDT ----- Message from Nata Eng sent at 04/19/2021 2:51 PM EDT ----- Regarding: Lab results Mom called to find out if we got the fax with Geronimo's testerone levels, done on 04/10 and faxed on 04/16.Joan can be reached at [phone]. documented in this encounter Plan of Treatment Not on filedocumented as of this encounter Visit Diagnoses Not on filedocumented in this encounter Care Teams Admin Prog Coord Relationship Specialty Start Date End Date Bernard Newman MD PCP - General Pediatrics 07/27/18 [place] [address] documented as of this encounter
--- OUTSIDE RECORDS SUMMARY | 2022-05-10 08:34 | XMS_ITS | Encounter Summary ---
:2000 [place] [address] Care Team Providers Name Role Phone Bernard Newman MD Primary Care Provider Reason for Visit Reason Onset Date Comments Medication Refill 04/24/2020 Encounter Details Date Type Department Care Team Description 04/24/[facility] [place] [address] Social History Tobacco Use Types Packs/Day Years Used Date Never Smoker Smokeless Tobacco: Never Used Comments: no one smokes Sex Assigned at Date Recorded Male 10/09/2021 8:40 AM EST documented as of this encounter Plan of Treatment Not on filedocumented as of this encounter Visit Diagnoses Diagnosis Hypogonadism male Other testicular hypofunction documented in this encounter Care Teams Batch And Furnace Operator Relationship Specialty Start Date End Date Bernard Newman MD PCP - General Pediatrics 07/27/18 [address] [place], [place] [address] documented as of this encounter
--- OUTSIDE RECORDS SUMMARY | 2022-05-10 08:34 | XMS_ITS | Encounter Summary ---
:2002 Author Organization [facility] [place] [address] Care Team Providers Name Role Phone Bernard Newman MD Primary Care Provider Reason for Visit Reason Onset Date Comments Medication Refill 09/13/2021 Encounter Details Date Type Department Care Team Description 09/13/2021 Refill Pediatric Endocrinology at [facility], Mariia neves Hypogonadism male [facility] [place] [address] PEDIATRIC [phone] ENDOCRINOLOGY [place], [place] [address] (Wo rk) Social History Tobacco Use Types Packs/Day Years Used Date Never Smoker Smokeless Tobacco: Never Used Comments: no one smokes Sex Assigned at Date Recorded Male 10/09/2021 8:40 AM EST documented as of this encounter Plan of Treatment Not on filedocumented as of this encounter Visit Diagnoses Diagnosis Hypogonadism male Other testicular hypofunction documented in this encounter Care Teams Instrumentation Technologist Relationship Specialty Start Date End Date Bernard Newman MD PCP - General Pediatrics 07/27/[address] [place] [address] [address] [place], [place] [address] documented as of this encounter
--- OUTSIDE RECORDS SUMMARY | 2022-05-10 08:34 | XMS_ITS | Encounter Summary ---
:2000 Author Organization [facility] [place] [address] Care Team Providers Name Role Phone Bernard Newman MD Primary Care Provider Encounter Details Date Type Department Care Team Description 11/09/2020 Telephone Pediatric Endocrinology at Bala Roland MD [facility] Amara contreras [place] [address] [place] [address] [phone] (Wo rk) Social History Tobacco Use Types Packs/Day Years Used Date Never Smoker Smokeless Tobacco: Never Used Comments: no one smokes Sex Assigned at Date Recorded Male 10/09/2021 8:40 AM EST documented as of this encounter Miscellaneous Notes Telephone Encounter - Bala Martinez MD - 11/09/2020 1:09 PM EST Left message on home phone. Regarding surveillance labs while on testosterone, I agree that checkingan annual Hgb/Hct is reasonable. Dr. Murillo pointed out that some adults have an idiosyncratic reaction to testosterone therapy resulting in polycythemia. I believe these labs are already checked by hematology/oncology, but I will verify that when they return my call. documented in this encounter Plan of Treatment Not on filedocumented as of this encounter Visit Diagnoses Not on filedocumented in this encounter Care Teams Quality Improvement Specialist Relationship Specialty Start Date End Date Bernard Newman MD PCP - General Pediatrics [facility]27[facility] [place] [address] documented as of this encounter
--- OUTSIDE RECORDS SUMMARY | 2022-05-10 08:34 | XMS_ITS | Encounter Summary ---
:2000 [place] [address] Care Team Providers Name Role Phone Bernard Newman MD Primary Care Provider Encounter Details Date Type Department Care Team Description 10/07/2018 Orders [facility] [address] Social History Tobacco Use Types Packs/Day Years Used Date Never Smoker Smokeless Tobacco: Never Used Comments: no one smokes Sex Assigned at Date Recorded Male 10/09/2021 8:40 AM EST documented as of this encounter Plan of Treatment Not on filedocumented as of this encounter Visit Diagnoses Not on filedocumented in this encounter Care Teams Photo Optics Technician Relationship Specialty Start Date End Date Bernard Newman MD PCP - General Pediatrics 07/27/18 [address] [place], [place] [address] documented as of this encounter
--- OUTSIDE RECORDS SUMMARY | 2022-05-10 08:34 | XMS_ITS | Encounter Summary ---
:2000 Author Organization [facility] [place] [address] Care Team Providers Name Role Phone Bernard Newman MD Primary Care Provider Encounter Details Date Type Department Care Team Description 04/23/2021 External Results [facility] Provider, His Hyp ogonadism male [facility] MD [employer] [address] [place] [address] Social History Tobacco Use Types Packs/Day Years Used Date Never Smoker Smokeless Tobacco: Never Used Comments: no one smokes Sex Assigned at Date Recorded Male 10/09/2021 8:40 AM EST documented as of this encounter Progress Notes Aliyah Casper APRN - 04/23/2021 8:29 AM EDT Labs reviewed by Dr. Demetrio Steen. Continue current dose of testosterone. documented in this encounter Plan of Treatment Not on filedocumented as of this encounter Procedures Procedure Name Priority Date/Time Associated Diagnosis Comme nts TESTOSTERONE, TOTAL Routine 04/10/2021 6:55 AM Hypogonadism ma le Results for this EDT procedure are i n the results section. documented in this encounter Results (ABNORMAL) Testosterone, total (04/10/2021 6:55 AM EDT) athologist Signature Testo Total 468 EXTERNAL LAB (External Lab) Specimen (Source) Anatomical Collection Method Collection Time Re ceived Time Location / / Volume Laterality Blood 04/10/2021 6:55 AM EDT Narrative This result has an attachment that is no t available. Bala Martinez MD CHEMISTRY ORDERABLES Performing Organization Address City/State/ZIP Code Phon e Number EXTERNAL LAB documented in this encounter Visit Diagnoses Diagnosis Hypogonadism male Other testicular hypofunction documented in this encounter Care Teams Territory Sales Manager Medical Relationship Specialty Start Date End Date Bernard Newman MD PCP - General Pediatrics 07/27/18 [address] [place] [address] documented as of this encounter
--- OUTSIDE RECORDS SUMMARY | 2022-05-10 08:34 | XMS_ITS | Encounter Summary ---
:2002 Author Organization [facility] [place] [address] Care Team Providers Name Role Phone Bernard Newman MD Primary Care Provider Encounter Details Date Type Department Care Team Description 11/23/2021 Orders Only Endocrinology at [facility] Todd Dempsey Hypogonadism in male; [facility] R, [place], [place] [address] CENTER [phone] ENDOCRINOLOGY [place], [place] [address] Social History Tobacco Use Types Packs/Day Years Used Date Never Smoker Smokeless Tobacco: Never Used Comments: no one smokes Sex Assigned at Date Recorded Male 10/09/2021 8:40 AM EST documented as of this encounter Plan of Treatment Scheduled Orders Name Type Priority Associated Diagnoses Order S chedule TSH Lab Routine Hypothyroidism, unspecified type Expected: 05/23/2022 (Approximate), Expires: 11/22/2022 T4, free Lab Routine Hypothyroidism, unspecified type Expected: 05/23/2022 (Approximate), Expires: 11/22/2022 T3 Total Lab Routine Hypothyroidism, unspecified type Expected: 05/23/2022, Expires: 2022 documented as of this encounter Visit Diagnoses Diagnosis Hypogonadism in male Hypothyroidism, unspecified type documented in this encounter Care Teams Resin Painter Relationship Specialty Start Date End Date Bernard Newman MD PCP - General Pediatrics 07/27/18 [address] [place] [address] documented as of this encounter
--- OUTSIDE RECORDS SUMMARY | 2022-05-10 08:34 | XMS_ITS | Encounter Summary ---
:2000 [place] [address] Care Team Providers Name Role Phone Bernard Newman MD Primary Care Provider Encounter Details Date Type Department Care Team Description 06/30/2020 Office Visit Pediatric Endocrinology Bala Martinez , [place] [address] PEDIATRIC ENDOCRINOLOGY [place], [place] [address] Social History Tobacco Use Types Packs/Day Years Used Date Never Smoker Smokeless Tobacco: Never Used Comments: no one smokes Sex Assigned at Date Recorded Male 10/09/2021 8:40 AM EST documented as of this encounter Last Filed Vital Signs Vital Sign Reading Time Taken Comments Blood Pressure 139/83 06/30/2020 8:00 AM EDT Pulse - - Temperature - - Respiratory Rate - - Oxygen Saturation - - Inhaled Oxygen Concentration - - Weight 88.8 kg (195 lb 12.8 oz) 06/30/2020 8:00 AM EDT Height 184.9 cm (6' 0.8) 06/30/2020 8:00 AM EDT Body Mass Index 25.98 06/30/2020 8:00 AM EDT Body Mass Index Percentile 86.19 % 06/30/2020 8:00 AM ED T Growth Chart: CDC (Boys, 2-20 Years) documented in this encounter Progress Notes Bala Martinez MD - 06/30/2020 8:00 AM EDT Subjective: Patient ID: Jaswinder Ross is a 20 y.o. male. JAZMINE San is here for [...] but the regimen of weekly subcutaneous testosterone has been working much better. Since his visit in Dec he feels that things are not going quite as well. He has some difficulty withmotivation and feels that his testosterone levels may be lower. He has spontaneous erections. He canejaculate normally and he can maintain an erection. He has not had any adverse reactions to the testosterone injections. He still experiences some anxiety and stress related to school, but overall last year was a good academic year. Other than the ALL, his general health has been excellent. Social History: He lives at home with both parents. He has an older sister and older brother who no longer live in the household. He is entering 12th grade at [employer] and does very well academically, passing all subjects. He usually participates in football and lacrosse, but Covid-19 may interfere this year. His father is a boom master and his mother is a nurse at [employer] [facility]. 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 Past Medical History, Surgical History, and Family History were reviewed and updated in the electronic record. Significant for childhood ALL now in remission. Review of Systems Constitutional: Negative. HENT: Negative. Eyes: Negative. Respiratory: Negative. Cardiovascular: Negative. Gastrointestinal: Negative. Endocrine: Negative. Genitourinary: Negative. Musculoskeletal: Negative. Skin: Negative. Neurological: [...] Tenderness: There is no abdominal tenderness. Genitourinary: Penis: Normal. Comments: Red 5 pubic hair. Adult phallus. Testes 15 mL right, 10 mL left. Lymphadenopathy: Cervical: No cervical adenopathy. Skin: General: Skin is warm. Findings: No rash. Neurological: Mental Status: He is alert. Psychiatric: Behavior: Behavior normal. BP 139/83 Ht 184.9 cm (6' 0.8) Wt 88.8 kg (195 lb 12.8 oz) BMI 25.98 kg/m?? Assessment and Plan: Hypogonadism male Based on his symptoms, I suspect that Jaswinder could benefit from a higher dose of testosterone. I considered measuring his current level, but his injection was just yesterday. Because he is taking only50 mg each week, I think it is reasonable to increase to 0.3 mL (60 mg) To see if his symptoms improve. If he is still concerned then we will obtain a trough value locally. If all goes well, I'll plan a telehealth visit in 6 months. He is aware that I will be retiring in Mar, 2021, so we will transition his care at his next visit. documented in this encounter Miscellaneous Notes Assessment & Plan Note - Bala Martinez MD - 06/30/2020 8:36 AM EDT Associated Problem(s): +/- Hypogonadism male (low total testosterone but normal free testosterone) Based on his symptoms, I suspect that Jaswinder could benefit from a higher dose of testosterone. I considered measuring his current level, but his injection was just yesterday. Because he is taking only50 mg each week, I think it is reasonable to increase to 0.3 mL (60 mg) To see if his symptoms improve. If he is still concerned then we will obtain a trough value locally. If all goes well, I'll plan a telehealth visit in 6 months. He is aware that I will be retiring in Mar, 2021, so we will transition his care at his next visit. documented in this encounter Plan of Treatment Not on filedocumented as of this encounter Visit Diagnoses Diagnosis Hypogonadism male Other testicular hypofunction documented in this encounter Care Teams Facilities Engineer Relationship Specialty Start Date End Date Bernard Newman MD PCP - General Pediatrics 07/27/18 [address] [place] [address] documented as of this encounter
--- OUTSIDE RECORDS SUMMARY | 2022-05-10 08:34 | XMS_ITS | Encounter Summary ---
:2002 Author Organization [facility] [address] Care Team Providers Name Role Phone Bernard Newman MD Primary Care Provider Encounter Details Date Type Department Care Team Description 11/21/2020 Telephone Pediatric Endocrinology at Bala Roland MD [facility] Amara contreras [place] [address] [place] [address] [phone] (Wo rk) Social History Tobacco Use Types Packs/Day Years Used Date Never Smoker Smokeless Tobacco: Never Used Comments: no one smokes Sex Assigned at Date Recorded Male 10/09/2021 8:40 AM EST documented as of this encounter Miscellaneous Notes Telephone Encounter - Bala Martinez MD - 11/21/2020 5:29 PM EST Spoke to mother regarding her question about monitoring during testosterone treatment. Based on my conversation with Dr. Murillo, I'm recommending a CBC to be certain his Hgb is not too elevated. Mother will have Jaswinder contact me and we will make arrangements for a CBC locally if it has not been done in the last year. ----- Message from Britany Gaines sent at 11/20/2020 11:53 AM EST ----- Mom calling in stating she is returning your call from the end of October and hasn't been able to get in touch with you. Please call her back at [phone]. Thank you. documented in this encounter Plan of Treatment Not on filedocumented as of this encounter Visit Diagnoses Not on filedocumented in this encounter Care Teams Broadcast Meteorologist Relationship Specialty Start Date End Date Bernard Newman MD PCP - General Pediatrics 07/27/[address] [place] [address] documented as of this encounter
--- OUTSIDE RECORDS SUMMARY | 2022-05-10 08:34 | XMS_ITS | Encounter Summary ---
:2000 [place] [address] Care Team Providers Name Role Phone Bernard Newman MD Primary Care Provider Reason for Visit Reason Onset Date Comments Medication Refill 10/14/2019 Encounter Details Date Type Department Care Team Description 10/14/2019 Refill Pediatric Endocrinology at Bala Roland MD Hypogonadism male [facility] [place] [address] ENDOCRINOLOGY [phone] [place], [place] [address] (Wo rk) Social History Tobacco Use Types Packs/Day Years Used Date Never Smoker Smokeless Tobacco: Never Used Comments: no one smokes Sex Assigned at Date Recorded Male 10/09/2021 8:40 AM EST documented as of this encounter Plan of Treatment Not on filedocumented as of this encounter Visit Diagnoses Diagnosis Hypogonadism male Other testicular hypofunction documented in this encounter Care Teams Equalizer Operator Relationship Specialty Start Date End Date Bernard Newman MD PCP - General Pediatrics 07/27/[address] [place] [address] [facility] [place] [id number] documented as of this encounter
--- OUTSIDE RECORDS SUMMARY | 2022-05-10 08:35 | XMS_ITS | Encounter Summary ---
:2000 [place] [address] Care Team Providers Name Role Phone Unavailable Primary Care Provider Unavailable Encounter Details Date Type Department Care Team Description 06/16/2018 Hospital Encounter Radiology Library [place] [facility] [place] [phone] PEDIATRIC [phone] ENDOCRINOLOGY [place], [place] [address] (Wo rk) Social History Tobacco Use Types Packs/Day Years Used Date Never Assessed Sex Assigned at Date Recorded Male 10/09/2021 8:40 AM EST documented as of this encounter Plan of Treatment Not on filedocumented as of this encounter Procedures Procedure Name Priority Date/Time Associated Diagnosis Comme nts FILM LIBRARY Routine 06/16/2018 12:00 AM Results for this STORAGE ONLY MR EDT procedure ar e in HEAD the results section. documented in this encounter Results Film Library- Storage Only MR Head (06/16/2018 12:00 AM EDT) Specimen (Source) Anatomical Location Collection Method / Collectio n Time Received Time / Laterality Volume Narrative RAD - 07/28/2018 8:54 AM EDT This exam is for storage only and is aut o-finalizing. Bala Martinez MD G FILM LIBRARY ORDERABLES Performing Organization Address City/State/ZIP Code Phon e Number [facility] [place], [place] documented in this encounter Visit Diagnoses Not on filedocumented in this encounter
--- OUTSIDE RECORDS SUMMARY | 2022-05-10 08:35 | XMS_ITS | Encounter Summary ---
:2000 Author Organization [facility] [place] [address] Care Team Providers Name Role Phone Bernard Newman MD Primary Care Provider Reason for Visit Reason Comments Establish Care Consultation (Routine) - Closed Specialty Diagnoses / Procedures Referred By Contact Refer red To Contact Pediatric Endocrinology Diagnoses erectile dysfunction Bernard Newman Casella, Samuel J, Procedures MD [facility] [address] [place] [address] [place] [address] PEDIATRIC ENDOCRINOLOGY [place], [place] [address] Phone: Fax: Referral ID Status Reason Start Date Expiration Date Visits Requ ested Visits Authorized [id number] Closed 07/27/2018 07/27/2019 1 1 Encounter Details Date Type Department Care Team Description 07/27/2018 Office Visit Pediatric Endocrinology Bala Martinez ypogonadism male; at [facility] [place] [facility] [place] [address] CENTER [phone] PEDIATRIC ENDOCRINOLOGY [place], [place] [address] Social History Tobacco Use Types Packs/Day Years Used Date Never Smoker Smokeless Tobacco: Never Used Comments: no one smokes Sex Assigned at Date Recorded Male 10/09/2021 8:40 AM EST documented as of this encounter Last Filed Vital Signs Vital Sign Reading Time Taken Comments Blood Pressure 112/64 07/27/2018 9:48 AM EDT Pulse 59 07/27/2018 9:48 AM EDT Temperature - - Respiratory Rate - - Oxygen Saturation - - Inhaled Oxygen Concentration - - Weight 90.5 kg (199 lb 8.3 oz) 07/27/2018 9:48 AM EDT Height 184.2 cm (6' 0.52) 07/27/2018 9:48 AM EDT Body Mass Index 26.67 07/27/2018 9:48 AM EDT Body Mass Index Percentile 93.09 % 07/27/2018 9:48 AM ED T Growth Chart: [facility] (Boys, 2-20 Years) documented in this encounter Progress Notes Key [place] RN - 07/27/2018 10:00 AM EDT Received order for testosterone injection from Dr. Martinez. Area cleansed with alcohol. Testosterone1 mL (200mg) administered with 21g needle to R vastus lateralis. Site dressed with sterile bandage. Pt tolerated procedure extremely well. Denied complaints of pain. Pt completed visit with Dr. Wigginspon completion of injection. Bala Martinez MD - 07/27/2018 10:00 AM EDT Subjective: Patient ID: Jaswinder Ross is a 18 y.o. male. HPI Jaswinder is here with his mother for consultation regarding possible hypogonadism at the request of Dr. Bernard Newman. 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 He went through a normal puberty and recalls normal sexual function in seventh grade. In eighth grade he noticed that it was more difficult to sustain erections. In ninth gradehe noted decreased spontaneous erections and difficulty maintaining erections and raised the concernwith Dr. Newman. He had testosterone measured on 2 occasions with values of 241 and 225 which fall within the normal range for Red IV but are below the cutoff for Red V. His prolactin was minimally elevated in February (18) but was 32 in June. Because of the concern of possible prolactinoma, a brain MRI was obtained and revealed no abnormalities of the pituitary. He works out regularly, but does not do a lot of biking. He was seen by an adult urologist who recommended a trial of sildenafil. Jaswinder did notice an increase in erections and the ability to sustain erections with the medication, but he has not been takingit on a consistent basis. In the review of systems he noted that his night vision is poor the rate and some concerns about being able to see the road clearly all driving at night. His mother was not aware of that change. He does not have regular headaches. Other than the ALL, his general health has been excellent. He is well adjusted and doing well in 10th grade participating in sports. Social History: He lives at home with both parents. He has an older sister and older brother who no longer live in the household. He is in 10th grade at [employer] and does very well academically although he does struggle with mathematics. He is participating in football and lacrosse. His father is a build master and his mother is a nurse at [employer]. Past Medical History, Surgical History, and Family History were reviewed and updated in the electronic record. Significant for childhood ALL now in remission. Review of Systems Constitutional: Negative. HENT: Negative. Eyes: Positive for visual disturbance (Having trouble seeing clearly at night. Describes having difficutly seeing road markings.). Respiratory: Negative. Cardiovascular: Negative. Gastrointestinal: Negative. Endocrine: [...] in volume bilaterally. He had normal texture. Musculoskeletal: He exhibits no edema. Lymphadenopathy: He has no cervical adenopathy. Neurological: He is alert. Skin: Skin is warm. No rash noted. Psychiatric: He has a normal mood and affect. His behavior is normal. BP 112/64 Pulse 59 Ht 184.2 cm (6' 0.52) Wt 90.5 kg (199 lb 8.3 oz) BMI 26.67 kg/m2 Outside labs included TSH of 3.15, free T4 of 0.83, free testosterone 8.55, total testosterone 225, cortisol 16, estradiol 22, prolactin 18. In June IGF-I was 327 total testosterone was 241 with a free testosterone of 9.4 prolactin was elevated at 34 FSH 9 LH 4.0 both testosterone values were done in the morning. Assessment and Plan: Hyposmia We administered the Sensonix olfactory testing today and Jaswinder could identify only 31 of the 40 odors. This displaced him in the moderate hyposmia range. 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 Hypogonadism male Jaswinder's testosterone levels (225, 241) are below the reference range of 300- 950 for Red V youngadults. Given that they were both drawn in the morning I would definitely expect higher values. 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 My impression is further supported by the relatively small testicular volume (20 mL) and the moderate hyposmia that was detected on today's exam. 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 To test this hypothesis that the erectile dysfunction is the result of low testosterone, we administered 200 mg intramuscularly today. If his sexual function returns to normal we can be confident that the dysfunction was due to lower levels testosterone rather than any neurovascular etiology. I doubt that the small elevation in prolactin is significant, because the value in February was only 18with a normal up to 17.7. The value of 32 on the recent labs is more significant, but given that this is a pulsatile hormone and the normal pituitary MRI I doubt that it is contributing to his low testosterone levels. It is possible that he is making sperm at this time and so the family might want to consider sperm storage because his sexual function may deteriorate over age time. If they would like to proceed with that we will arrange a semen analysis. I reassured his mother that testosterone treatment at this agedoes not preclude normal function in the future - however, chronic testosterone treatment will reduce the sperm count and decreased testicular size. documented in this encounter Miscellaneous Notes Assessment & Plan Note - Bala Martinez MD - 08/02/2018 3:08 PM EDT Associated Problem(s): +/- Hypogonadism male (low total testosterone but normal free testosterone) Jaswinder's testosterone levels (225, 241) are below the reference range of 300- 950 for Red V youngadults. Given that they were both drawn in the morning I would definitely expect higher values. 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 My impression is further supported by the relatively small testicular volume (20 mL) and the moderate hyposmia that was detected on today's exam. 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 To test this hypothesis that the erectile dysfunction is the result of low testosterone, we administered 200 mg intramuscularly today. If his sexual function returns to normal we can be confident that the dysfunction was due to lower levels testosterone rather than any neurovascular etiology. I doubt that the small elevation in prolactin is significant, because the value in February was only 18with a normal up to 17.7. The value of 32 on the recent labs is more significant, but given that this is a pulsatile hormone and the normal pituitary MRI I doubt that it is contributing to his low testosterone levels. It is possible that he is making sperm at this time and so the family might want to consider sperm storage because his sexual function may deteriorate over age time. If they would like to proceed with that we will arrange a semen analysis. I reassured his mother that testosterone treatment at this agedoes not preclude normal function in the future - however, chronic testosterone treatment will reduce the sperm count and decreased testicular size. Assessment & Plan Note - Bala Martinez MD - 08/02/2018 3:05 PM EDT Associated Problem(s): Hyposmia We administered the Sensonix olfactory testing today and Jaswinder could identify only 31 of the 40 odors. This displaced him in the moderate hyposmia range. 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 documented in this encounter Plan of Treatment Not on filedocumented as of this encounter Visit Diagnoses Diagnosis Hypogonadism male Other testicular hypofunction Hyposmia Disturbances of sensation of smell and t aste documented in this encounter Administered Medications Inactive Administered Medications - up to 3 most recent administrations Medication Order MAR Action Action Date Dose Rate Site testosterone cypionate Given 07/27/2018 11:04 AM 200 mg Left Quadriceps (DepoTESTOSTERONE EDT CYPIONATE) injection 200 mg 200 mg (2.21 mg/kg/dose), Intramuscular, ONCE, 1 dose, On 07/27/18 at 1115, Routine documented in this encounter Care Teams Electric Arc Furnace Operator Relationship Specialty Start Date End Date Bernard Newman MD PCP - General Pediatrics 07/27/18 [address] [place] [address] documented as of this encounter
--- OUTSIDE RECORDS SUMMARY | 2022-05-10 08:35 | XMS_ITS | Encounter Summary ---
:2000 Author Organization [facility] [place] [address] Care Team Providers Name Role Phone Bernard Newman MD Primary Care Provider Encounter Details Date Type Department Care Team Description 08/17/2018 Telephone Pediatric Endocrinol [place]gy [place] [facility] [place] [phone] Social History Tobacco Use Types Packs/Day Years Used Date Never Smoker Smokeless Tobacco: Never Used Comments: no one smokes Sex Assigned at Date Recorded Male 10/09/2021 8:40 AM EST documented as of this encounter Miscellaneous Notes Telephone Encounter - [place] RN - 08/17/2018 8:42 AM EDT Mom calledJaswinder reports significant improvement with the testosterone injection received in clinic. Mom states all symptoms have resolved. They would like to start testosterone shots at home. Mom is a RN. Also wanted to talk about freezing sperm if there is any available. Would like a return call to discuss these options. Best call back number is [phone]. If rx, should use [facility] in [facility]. Prescription sent. Responded to mother in eD-H. documented in this encounter Plan of Treatment Not on filedocumented as of this encounter Visit Diagnoses Diagnosis Hypogonadism male Other testicular hypofunction documented in this encounter Care Teams Tipple Greaser Relationship Specialty Start Date End Date Bernard Newman MD PCP - General Pediatrics 07/27/18 [address] [facility] [facility] [facility] [place] [address] documented as of this encounter
== END 2022-06-09 23:59 | disposition home or self-care (01) ==
LOC: INF 08:22
PROVIDERS: PCP Pediatrics; Visit Provider Pediatrics
DX: Z00.129 Encounter for routine child health examination without abnormal findings (principal)
CPT/HCPCS: 83655

== ENCOUNTER 2022-08-28 07:11 | Outpatient (RCR) | payer OTHER, SELFPAY ==
[2022-08-28 18:07] LABS: Sex Hormone Binding Globulin 11.5 nmol/L (11.5-54.5)
[2022-09-12 17:19] LABS: Testosterone, Free 25.6 ng/dL (5.25-20.7); Testosterone, Total 525 ng/dL (240-950)
== END 2022-09-09 23:59 | disposition home or self-care (01) ==
LOC: INF 07:11
PROVIDERS: Student in an Organized Health Care Education/Training Program; PCP Pediatrics; Visit Provider Internal Medicine Endocrinology, Diabetes & Metabolism
DX: E29.1 Testicular hypofunction (principal)
CPT/HCPCS: 36415; 84402; 84403; 84270

== ENCOUNTER 2024-01-16 07:29 | Outpatient (RCR) | payer OTHER, SELFPAY ==
[2024-01-16 08:07] LABS: FREE T4 0.78 ng/dL (0.76-1.46); TSH 1.33 uIU/Ml (0.36-3.74)
== END 2024-02-08 23:59 | disposition home or self-care (01) ==
LOC: INF 07:29
PROVIDERS: PCP Pediatrics; Visit Provider Pediatrics
DX: Z13.29 Encounter for screening for other suspected endocrine disorder (principal)
CPT/HCPCS: 36415; 84439; 84443

== ENCOUNTER 2024-03-02 04:43 | Outpatient (RCR) | payer OTHER, SELFPAY ==
[2024-03-02 07:37] LABS: Anion Gap 7.6 mmol/L (3-11); BUN 16 mg/dL (7-18); CO2 31.4 mmol/L (21.0-32.0); CREATININE 0.8 mg/dL (0.70-1.30); Calcium 8.3 mg/dL (8.5-10.1); Chloride 107 mmol/L (98-107); Estimated GFR 129.13 (mL/min/1.73m2); Glucose 93 mg/dL (74-106); Potassium 4.1 mmol/L (3.5-5.1); Sodium 146 mmol/L (136-145)
[2024-03-02 07:45] LABS: Abs Immature Grans 0.03 10^3/uL (0.0-0.06); Absolute Basophil Count 0.03 10^3/uL (0.0-0.2); Absolute Eosinophil Count 0.14 10^3/uL (0.0-0.7); Absolute Lymphocyte Count 2.24 10^3/uL (1.2-3.4); Absolute Monocyte Count 0.74 10^3/uL (0.1-0.8); Absolute Neutrophil Count 3.55 10^3/uL (1.2-6.7); Basophils % 0.4; Eosinophils % 2.1; HCT 43.6 % (40.0-50.0); HGB 14.4 g/dL (13.5-17.5); Immature Grans % 0.4; Lymphocytes % 33.3; MCH 29.6 pg (27.0-33.0); MCV 90 fL (80-95); MPV 10.1 fL (8.0-11.0); Neutrophils % 52.8; Platelet Count 196 10^3/uL (130-400); RBC 4.86 10^6/uL (4.36-5.78); RDW 12.5 % (11.8-14.1); RDW-SD 41.4 fL; WBC 6.73 10^3/uL (4.4-10.8)
[2024-03-02 08:25] LABS: Hemoglobin A1C 5.6 % (<5.7)
[2024-03-02 17:19] LABS: Osmolality, Urine 675 mOsm/kg (150-1150)
[2024-03-02 17:53] LABS: Osmolality Serum 294 mOsm/kg (275-295)
[2024-03-03 14:09] LABS: IgA 153 mg/dL (85-499); Interpretation (See Note); Tissue Transglutaminase IgA <4.0 CU (<20.0)
== END 2024-03-09 23:59 | disposition home or self-care (01) ==
LOC: INF 04:43
PROVIDERS: PCP Pediatrics; Visit Provider Pediatrics
DX: R35.89 Other polyuria (principal)
CPT/HCPCS: 80048; 82784; 83516; 83935; 83036; 83930; 85025